=== PATIENT | male | born 1945 | race Caucasian/White ===

== ENCOUNTER 2021-08-24 12:49 | Emergency (ER) | payer OTHER, SELFPAY ==
--- OUTSIDE RECORDS SUMMARY | 2021-08-24 13:02 | XMS REPORT | Continuity of Care Document ---
:1945 Author Organization [facility] t Address [address] [place] [address] Care Team Providers Name Role Phone SHARPLESS Primary Care Physician Unavailable BRODERICK Attending Clinician Unavailable Jonnie FELTON Attending Clinician Unavailable ELDER HAMLIN Attending Clinician Unavailable Jonnie CRUZ Attending Clinician Unavailable Noe SAMUEL Attending Clinician Unavailable JESSA BLAIR Attending Clinician Unavailable Jonnie CARRASCO Attending Clinician Unavailable VANDANA Attending Clinician Unavailable Barb CORMIER Attending Clinician Unavailable MACHO GONZALEZ Attending Clinician Unavailable Karyn Mcgee PA-C Attending Clinician KARYN MCGEE Attending Clinician Unavailable Vandana JARA Attending Clinician FL1 Attending Clinician Unavailable SWAB, COVID SELF Attending Clinician Unavailable ISABEL Attending Clinician Unavailable LAB90 Attending Clinician Unavailable AMBROSE Attending Clinician Unavailable RADIOLOGY Attending Clinician Unavailable DENNY Attending Clinician Unavailable 1, COHERENCE TOMOGRAPHY Attending Clinician Unavailable Miya Brush MD Attending Clinician Omar PHIPPS Attending Clinician Unavailable MIYA BRUSH Attending Clinician Unavailable LAB39 Attending Clinician Unavailable KATHY Attending Clinician Unavailable LAB47 Attending Clinician Unavailable Elder Hamlin MD Attending Clinician LAB02 Attending Clinician Unavailable Noe Samuel MD Attending Clinician Kathy MORAN Attending Clinician ADÁN Attending Clinician Unavailable Jonnie Carrasco MD Attending Clinician ELIECER CARRASCO Attending Clinician Unavailable Eliecer Carrasco MD Attending Clinician Unavailable Newton Morrissey MD Attending Clinician Otilia POWERS Karyn Attending Clinician MARGUERITE Attending Clinician Unavailable Adán [facility] FINISH SPECIALIST Attending Clinician SWAB, COVID SELF Attending Clinician Unavailable [id number] Attending Clinician Unavailable MAC Attending Clinician Unavailable JD MUNOZ Attending Clinician Unavailable COVID-PFIZER BOOSTER, RICHMOND Attending Clinician Unavailabl e COVID-PFIZER BOOSTER Attending Clinician Unavailable GRICELDA Attending Clinician Unavailable Gricelda FINISH SPECIALIST Attending Clinician HU Attending Clinician Unavailable Rusty HERNANDEZ, [facility] Attending Clinician Artemio Olguin MD Attending Clinician Marlyn Vazquez DO Attending Clinician Unavailable Ron Up MD Attending Clinician Christopher Linder MD Attending Clinician FLASH Attending Clinician Unavailable ELIECER CARRASCO Admitting Clinician Unavailable Marlyn VAZQUEZ Admitting Clinician Unavailable Payers Payer Name Policy Type Policy Number Effective Date Expiration Date S shay [facility] - O 2020 7 [id number] 2014 00:00:00 [facility] [id number] 2014 ADV 00:00:00 [id number] ADVANTAGE O 00:00:00 Problems Condition Condition Condition Status Onset Resolution Last Treating Co mments Source Name Details Category Date Date Treatment Clinician Date 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-06 Seybold kidney kidney 00:00: disease disease 00 Lung Lung Disease Active 2020-05 Marilynn granuloma granuloma 2-06 Seyb old 00:00: 00 Cervical Cervical Disease [facility] Metastasis Metastasis Disease Active 2020-[address] [facility] cervical cervical 00:[facility]: Medica l lymph node lymph node 00 Ce nter 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: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 00 Gastric Gastric Disease Active [facility] ulcer ulcer 3[facility] Duodenal Duodenal Disease [facility] Hypokalemi Hypokalemi Disease Active [facility] Severe Severe Disease Active [facility] anemia anemia 3- [facility] Medical 00 [place] Nausea & Nausea & Disease Active Kelse y vomiting vomiting 2-12 Seybol d 00:00: 00 Dehydratio Dehydratio Disease Active K elsey n n 2-12 Seybold 00:00: 00 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 00:00: of lymph of lymph 00 nodes nodes Cancer of Cancer of Disease Active [facility] base of base of 1-07 College tongue tongue 00:00: of (HCCode) (HCCode) 00 Medici n e Other Other Disease Active [facility] dysphagia dysphagia 1-07 Isai ege 00:00: of 00 Medicin e History of History of Disease Active 2019-05 K elsey squamous squamous 2-18 Seybol d cell cell 00:00: carcinoma- carcinoma- 00 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 Active 2019-05 Marilynn chronic chronic 0-19 Seybold kidney kidney 00:00: disease disease 00 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 2-10 Se ybold emia emia 00:00: 00 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 00:00: 00 Hypertensi Hypertensi Disease Active 2018-05 K elsey ve heart ve heart 0-17 Seybol d and kidney and kidney 00:00: disease disease 00 with heart with heart failure failure and and chronic chronic kidney kidney disease disease Benign Benign Disease Active Marilynn non-nodula non-nodula 02-03 Se ybold r r 00:00: prostatic prostatic 00 hyperplasi hyperplasi a without a without lower lower urinary urinary tract tract symptoms symptoms 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 2-10 [place]bol [place] 00:00: coronary coronary 00 artery of artery of [place] heart heart without without angina angina pectoris pectoris 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 PTSD PTSD Disease Active 2011-05 Marilynn (post-trau (post-trau 06-16 Se ybold matic matic 00:00: stress stress 00 disorder) disorder) [place] 1968 - 1969 1969 Allergies, Adverse Reactions, Alerts Allergy Allergy Status Severity Reaction(s) Onset Inactive Treating Comm ents Source Name Type Date Date Clinician TRAMADOL Allergy Active 2020-[address] [facility] Tramadol Propensi Active 2020-[address] [facility] ty to 0-08 [facility] - adverse 00:00: Medical reaction 00 Center s OXYCODON Allergy Active Other [facility] Oxycodon Drug Active Other pt would Marilynn ballesteros Intolera - like Seybold nce 00:00: oxycontin 00 /tramadol added to his "allergy/ intoleran ce" list - he states he was addicted to opioids and wants it noted in his profile. He does not want to take opioid medicatio ns due to addiction potential Tramadol Drug Active Other pt would Marilynn Intolera 4- like Seybold nce 00:00: oxycontin 00 /tramadol added to his "allergy/ intoleran ce" list - he states he was addicted to opioids and wants it noted in his profile. He does not want to take opioid medicatio ns due to addiction potential Morpholi Drug Active [facility] Intolera 4-21 [facility] - Analogue nce 00:00: Medical s 00 Center MORPHOLI Allergy Active [facility] 4-[facility] - ANALOGUE 00:[facility]: Medical S 00 Center Social History Social Habit Start Date Stop Date Quantity Comments Source History SDOH Marilynn servin Alcohol Frequency History SDOH Marilynn servin Alcohol Std Drinks History SDOH Marilynn servin Alcohol Binge Alcohol intake 2021-08-14 2021-08-14 Current drinker of Ke lsey Seybold 00:00:00 00:00:00 alcohol (finding) Exposure to 2021-08-03 2021-08-13 Not sure Marilynn odom SARS-CoV-2 (event) 00:00:00 10:35:00 Alcohol Comment 2014-05-25 2014-05-25 moderately Marilynn Coyne ybtiana 00:00:00 00:00:00 Tobacco use and 2012-08-30 2012-08-30 Smokeless tobacco Elieser lsey Seybold exposure 00:00:00 00:00:00 non-user Sex [birth year] Marilynn Coyne ybtiana 00:00:00 00:00:00 Smoking Status Start Date Stop Date Source Unknown if ever smoked [facility] Never smoked tobacco Marilynn montiel Medications Ordered Filled Start Stop Current Ordering Indication Dosage Frequency Signature Comments Components Source Medication Medication Date Date Medication? Clinician (SIG) Name Name Multiple Yes Take by Marilynn Vitamin 3-30 mouth Seybold (MULTI 12:57: daily VITAMIN 26 MENS OR) Nitroglycer Yes 1 tablet Elieser yuannevin in 0.4 MG 3-30 under the Seybo ld sublingual 12:57: tongue at SL Tab 26 onset of attack. Repeat as needed up to 3 times. Bupropion Yes 300mg Take 300 Renate sey HCL XL 300 3-30 mg by Seybold MG OR TB24 12:57: mouth 26 daily Naproxen Yes 220mg Take 220 Sheree ey Sodium 220 3-30 mg by Seybold MG oral 12:57: mouth 2 Tablet 26 times daily (with meals) Acetaminoph 2021-0 Yes 500mg Q.25D Take 500 Marilynn en 3-30 mg by Seybold (TYLENOL) 12:57: mouth 500 MG oral 26 every 6 Tablet hours as needed for pain Multiple 0 Yes Take by Marilynn Vitamin 3-29 mouth Seybold (MULTI 10:59: daily VITAMIN 53 MENS OR) Nitroglycer 0 Yes 1 tablet Ke lsey in 0.4 MG 3-29 under the Seybo ld sublingual 10:59: tongue at SL Tab 53 onset of attack. Repeat as needed up to 3 times. Bupropion 0 Yes 300mg Take 300 Renate sey HCL XL 300 3-29 mg by Seybold MG OR TB24 10:59: mouth 53 daily Naproxen 0 Yes 220mg Take 220 Sheree ey Sodium 220 3-29 mg by Seybold MG oral 10:59: mouth 2 Tablet 53 times daily (with meals) Acetaminoph 0 Yes 500mg Q.25D Take 500 Marilynn en 3-29 mg by Seybold (TYLENOL) 10:59: mouth 500 MG oral 53 every 6 Tablet hours as needed for pain Pregabalin 2021-0 Yes [id number] Lyrica K elsey (Lyrica) 25 3-29 25mg 1 po Sey bold MG oral 00:00: qd x 3 Capsule 00 days, 1 po q 12 x 3 days, 1 po q 8 for nerve pain #90 To discontinu e, taper off Pregabalin 0 Yes [id number] Lyrica K elsey (Lyrica) 25 3-29 25mg 1 po Sey bold MG oral 00:00: qd x 3 Capsule 00 days, 1 po q 12 x 3 days, 1 po q 8 for nerve pain #90 To discontinu e, taper off Ciprofloxac 0 Yes 500mg Take 1 Renate sey in HCl 3-18 tablet Seybold (Cipro) 500 00:00: (500 mg MG oral 00 total) by Tablet mouth every 12 hours Ciprofloxac 2021-0 Yes 500mg Take 1 Renate sey in HCl 3-18 tablet Seybold (Cipro) 500 00:00: (500 mg MG oral 00 total) by Tablet mouth every 12 hours Methylpredn 2021- No [id number] 40mg Marilynn isolone 2-07 06-24 07 Seybold Acetate 16:45: 17:31 (Depo-Medro 00 :00 l) 40 mg/ml - Physician Administere d ([id number]) Methylpredn 2021- No [id number] 40mg 40 mg, Marilynn isolone 2-07 06-24 07 Physician Seybol d Acetate 16:45: 17:31 Administer (Depo-Medro 00 :00 ed, ONCE, l) 40 mg/ml 1 dose, On - Physician 06/24/21 Administere at 1045 d ([id number]) Mirtazapine Yes 15mg Take 15 mg Marilynn 15 MG oral 2-07 by mouth Seybo ld Tablet 09:35: nightly 13 Patient takes half a tab nightly Acetaminoph Yes 500mg Q6H Take 500 K elsey en 2-07 mg by Seybold (TYLENOL) 09:34: mouth 500 MG oral 58 every 6 Tablet hours as needed for pain Multiple Yes Take by Marilynn Vitamin 2-07 mouth Seybold (MULTI 09:34: daily VITAMIN 57 MENS OR) Nitroglycer Yes 1 tablet Ke lsey in 0.4 MG 2-07 under the Seybo ld sublingual 09:34: tongue at SL Tab 57 onset of attack. Repeat as needed up to 3 times. Bupropion 0 Yes 300mg Take 300 Renate sey HCL XL 300 2-07 mg by Seybold MG OR TB24 09:34: mouth 57 daily Naproxen 0 Yes 220mg Take 220 Sheree ey Sodium 2-07 mg by Seybold (Aleve) 220 09:34: mouth 2 MG oral Tab 57 times daily (with meals) Gabapentin 0 Yes Neurontin Ke lsey 100 MG oral 2-07 100mg 1 po Se ybold Capsule 00:00: QD x 3 00 days, 1 po q 12 hrs. X 3 days, 1 po q 8 for nerve pain #90 To discontinu e, taper off Baclofen 10 Yes 10mg Q.5D Take 1 Sheree ey MG oral 2-07 tablet (10 Seybol d Tablet 00:00: mg total) 00 by mouth 2 times daily as needed for muscle spasms or pain Baclofen 10 Yes 10mg Q.5D Take 1 Sheree ey MG oral 2-07 tablet (10 Seybol d Tablet 00:00: mg total) 00 by mouth 2 times daily as needed for muscle spasms or pain Baclofen 10 0 Yes 10mg Q.5D Take 1 Sheree ey MG oral 2-07 tablet (10 Seybol d Tablet 00:00: mg total) 00 by mouth 2 times daily as needed for muscle spasms or pain Gabapentin 2021- No Neurontin K elsey 100 MG oral 2- 03-29 100mg 1 po S eybold Capsule 00:00: 00:00 QD x 3 00 :00 days, 1 po q 12 hrs. X 3 days, 1 po q 8 for nerve pain #90 To discontinu e, taper off Multiple Yes Take by Marilynn Vitamin 1-20 mouth Seybold (MULTI 10:05: daily VITAMIN 21 MENS OR) Nitroglycer Yes 1 tablet Ke lsey in 0.4 MG 1-20 under the Seybo ld sublingual 10:05: tongue at SL Tab 21 onset of attack. Repeat as needed up to 3 times. Bupropion Yes 300mg Take 300 Renate sey HCL XL 300 1-20 mg by Seybold MG OR TB24 10:05: mouth 21 daily Naproxen 0 Yes 220mg Take 220 Sheree ey Sodium 1-20 mg by Seybold (Aleve) 220 10:05: mouth 2 MG oral Tab 21 times daily (with meals) Mirtazapine Yes 15mg Take 15 mg Marilynn 15 MG oral 1-20 by mouth Seybo ld Tablet 10:05: nightly 21 Patient takes half a tab nightly Acetaminoph 2021- Yes 500mg Q6H Take 500 K elsey en 1-20 mg by Seybold (TYLENOL) 10:05: mouth 500 MG oral 21 every 6 Tablet hours as needed for pain Multiple Yes Take by Marilynn Vitamin 1-20 mouth Seybold (MULTI 10:05: daily VITAMIN 21 MENS OR) Nitroglycer Yes 1 tablet Ke lsey in 0.4 MG 1-20 under the Seybo ld sublingual 10:05: tongue at SL Tab 21 onset of attack. Repeat as needed up to 3 times. Bupropion 2021-0 Yes 300mg Take 300 Renate sey HCL XL 300 1-20 mg by Seybold MG OR TB24 10:05: mouth 21 daily Naproxen 2021-0 Yes 220mg Take 220 Sheree ey Sodium 1-20 mg by Seybold (Aleve) 220 10:05: mouth 2 MG oral Tab 21 times daily (with meals) Mirtazapine 0 Yes 15mg Take 15 mg Marilynn 15 MG oral 1-20 by mouth Seybo ld Tablet 10:05: nightly 21 Patient takes half a tab nightly Acetaminoph 0 Yes 500mg Q6H Take 500 K elsey en 1-20 mg by Seybold (TYLENOL) 10:05: mouth 500 MG oral 21 every 6 Tablet hours as needed for pain Multiple Yes Take by Marilynn Vitamin 1-17 mouth Seybold (MULTI 09:55: daily VITAMIN 00 MENS OR) Nitroglycer Yes 1 tablet Ke lsey in 0.4 MG 1-17 under the Seybo ld sublingual 09:55: tongue at SL Tab 00 onset of attack. Repeat as needed up to 3 times. Bupropion 0 Yes 300mg Take 300 Renate sey HCL XL 300 1-17 mg by Seybold MG OR TB24 09:55: mouth 00 daily Naproxen 2021-0 Yes 220mg Take 220 Sheree ey Sodium 1-17 mg by Seybold (Aleve) 220 09:55: mouth 2 MG oral Tab 00 times daily (with meals) Acetaminoph 2021-0 Yes 500mg Q6H Take 500 K elsey en 1-17 mg by Seybold (TYLENOL) 09:55: mouth 500 MG oral 00 every 6 Tablet hours as needed for pain Mirtazapine 2020-05 Yes 15mg Take 15 mg Marilynn 15 MG oral 2-16 by mouth Seybo ld Tablet 14:29: nightly 20 Patient takes half a tab nightly Multiple 2020-05 Yes Take by Marilynn Vitamin 2-16 mouth Seybold (MULTI 09:47: daily VITAMIN 31 MENS OR) Nitroglycer 2020-05 Yes 1 tablet Ke lsey in 0.4 MG 2-16 under the Seybo ld sublingual 09:47: tongue at SL Tab 31 onset of attack. Repeat as needed up to 3 times. Bupropion 2020-05 Yes 300mg Take 300 Renate sey HCL XL 300 2-16 mg by Seybold MG OR TB24 09:47: mouth 31 daily Naproxen 2020-05 Yes 220mg Take 220 Sheree ey Sodium 2-16 mg by Seybold (Aleve) 220 09:47: mouth 2 MG oral Tab 31 times daily (with meals) Mirtazapine 2020-05 Yes 15mg Take 15 mg Marilynn 15 MG oral 2-16 by mouth Seybo ld Tablet 09:47: nightly 31 Patient takes half a tab nightly Acetaminoph 2020-05 Yes 500mg Q6H Take 500 K elsey en 2-16 mg by Seybold (TYLENOL) 09:47: mouth 500 MG oral 31 every 6 Tablet hours as needed for pain DICLOFENAC 2020-05 Yes 1[drp] Place 1 Ke lsey SODIUM, 2-16 drop into Seybold OPHTH, 0.1 00:00: the right % 00 eye 4 ophthalmic times Solution daily *BDP* prednisoLON 2020-05 Yes 1[drp] Place 1 K elsey E Acetate 1 2-16 drop into Sey bold % 00:00: the right ophthalmic 00 eye 4 Suspension times daily *BDP* DICLOFENAC 2020-05 Yes 1[drp] Place 1 Ke lsey SODIUM, 2-16 drop into Seybold OPHTH, 0.1 00:00: the right % 00 eye 4 ophthalmic times Solution daily *BDP* prednisoLON 2020-05 Yes 1[drp] Place 1 K elsey E Acetate 1 2-16 drop into Sey bold % 00:00: the right ophthalmic 00 eye 4 Suspension times daily *BDP* DICLOFENAC 2020-05 Yes 1[drp] Place 1 Ke lsey SODIUM, 2-16 drop into Seybold OPHTH, 0.1 00:00: the right % 00 eye 4 ophthalmic times Solution daily *BDP* prednisoLON 2020-05 Yes 1[drp] Place 1 K elsey E Acetate 1 2-16 drop into Sey bold % 00:00: the right ophthalmic 00 eye 4 Suspension times daily *BDP* DICLOFENAC 2020-05 Yes 1[drp] Place 1 Ke lsey SODIUM, 2-16 drop into Seybold OPHTH, 0.1 00:00: the right % 00 eye 4 ophthalmic times Solution daily *BDP* prednisoLON 2020-05 Yes 1[drp] Place 1 K elsey E Acetate 1 2-16 drop into Sey bold % 00:00: the right ophthalmic 00 eye 4 Suspension times daily *BDP* DICLOFENAC 2020-05 Yes 1[drp] Place 1 Ke lsey SODIUM, 2-16 drop into Seybold OPHTH, 0.1 00:00: the right % 00 eye 4 ophthalmic times Solution daily *BDP* prednisoLON 2020-05 Yes 1[drp] Place 1 K elsey E Acetate 1 2-16 drop into Sey bold % 00:00: the right ophthalmic 00 eye 4 Suspension times daily *BDP* Brimonidine 2020-05- No [id number] 1[drp] Place 1 Marilynn Tartrate 2-16 12-24 drop into Seybo ld 0.2 % 00:00: 05:59 the right ophthalmic 00 :00 eye 2 Solution times daily for 7 days Moxifloxaci 2020-05 202- No 1[drp] Place 1 Marilynn n HCl 2-15 12-23 drop into Seybold (Vigamox) 00:00: 05:59 the right 0.5 % 00 :00 eye 4 ophthalmic times Solution daily for 7 days *BDP* Multiple 2020-05 Yes Take by Marilynn Vitamin 2-09 mouth Seybold (MULTI 14:26: daily VITAMIN 50 MENS OR) Nitroglycer 2020-05 Yes 1 tablet Elieser yuaney in 0.4 MG 2-09 under the Seybo ld sublingual 14:26: tongue at SL Tab 50 onset of attack. Repeat as needed up to 3 times. Bupropion 2020-05 Yes 300mg Take 300 Renate sey HCL XL 300 2-09 mg by Seybold MG OR TB24 14:26: mouth 50 daily Naproxen 2020-05 Yes 220mg Take 220 Sheree ey Sodium 2-09 mg by Seybold (Aleve) 220 14:26: mouth 2 MG oral Tab 50 times daily (with meals) Mirtazapine 2020-05 Yes 15mg Take 15 mg Marilynn 15 MG oral 2-09 by mouth Seybo ld Tablet 14:26: nightly 50 Patient takes half a tab nightly Acetaminoph 2020-05 Yes 500mg Q6H Take 500 K elsey en 2-09 mg by Seybold (TYLENOL) 14:26: mouth 500 MG oral 50 every 6 Tablet hours as needed for pain Tamsulosin 2020-05- No .4mg Take 0.4 Ke lsey HCl 0.4 MG 2-06 12-06 mg by Seybold oral Cap 08:41: 00:00 mouth 31 :00 daily Multiple 2020-05 Yes Take by Marilynn Vitamin 2-06 mouth Seybold (MULTI 08:38: daily VITAMIN 09 MENS OR) Nitroglycer 2020-05 Yes 1 tablet Ke lsey in 0.4 MG 2-06 under the Seybo ld sublingual 08:38: tongue at SL Tab 09 onset of attack. Repeat as needed up to 3 times. Bupropion 2020-05 Yes 300mg Take 300 Renate sey HCL XL 300 2-06 mg by Seybold MG OR TB24 08:38: mouth 09 daily Naproxen 2020-05 Yes 220mg Take 220 Sheree ey Sodium 2-06 mg by Seybold (Aleve) 220 08:38: mouth 2 MG oral Tab 09 times daily (with meals) Mirtazapine 2020-05 Yes 15mg Take 15 mg Marilynn 15 MG oral 2-06 by mouth Seybo ld Tablet 08:38: nightly 09 Patient takes half a tab nightly Acetaminoph 2020-05 Yes 500mg Q6H Take 500 K elsey en 2-06 mg by Seybold (TYLENOL) 08:38: mouth 500 MG oral 09 every 6 Tablet hours as needed for pain Multiple 2020-05 Yes Take by Marilynn Vitamin 0-22 mouth Seybold (MULTI 11:22: daily VITAMIN 03 MENS OR) Nitroglycer 2020-05 Yes 1 tablet Ke lsey in 0.4 MG 0-22 under the Seybo ld sublingual 11:22: tongue at SL Tab 03 onset of attack. Repeat as needed up to 3 times. Bupropion 2020-05 Yes 300mg Take 300 Renate sey HCL XL 300 0-22 mg by Seybold MG OR TB24 11:22: mouth 03 daily Naproxen 2020-05 Yes 220mg Take 220 Sheree ey Sodium 0-22 mg by Seybold (Aleve) 220 11:22: mouth 2 MG oral Tab 03 times daily (with meals) Tamsulosin 2020-05 Yes .4mg Take 0.4 Renate sey HCl 0.4 MG 0-22 mg by Seybold oral Cap 11:22: mouth 03 daily Mirtazapine 2020-05 Yes 15mg Take 15 mg Marilynn 15 MG oral 0-22 by mouth Seybo ld Tablet 11:22: nightly 03 Patient takes half a tab nightly Multiple 2020-05 Yes Take by Marilynn Vitamin 0-22 mouth Seybold (MULTI 11:22: daily VITAMIN 03 MENS OR) Nitroglycer 2020-05 Yes 1 tablet Ke lsey in 0.4 MG 0-22 under the Seybo ld sublingual 11:22: tongue at SL Tab 03 onset of attack. Repeat as needed up to 3 times. Bupropion 2020-05 Yes 300mg Take 300 Renate sey HCL XL 300 0-22 mg by Seybold MG OR TB24 11:22: mouth 03 daily Naproxen 2020-05 Yes 220mg Take 220 Sheree ey Sodium 0-22 mg by Seybold (Aleve) 220 11:22: mouth 2 MG oral Tab 03 times daily (with meals) Tamsulosin 2020-05 Yes .4mg Take 0.4 Renate sey HCl 0.4 MG 0-22 mg by Seybold oral Cap 11:22: mouth 03 daily Mirtazapine 2020-05 Yes 15mg Take 15 mg Marilynn 15 MG oral 0-22 by mouth Seybo ld Tablet 11:22: nightly 03 Patient takes half a tab nightly Multiple 2020-05 Yes Take by Marilynn Vitamin 0-22 mouth Seybold (MULTI 11:22: daily VITAMIN 03 MENS OR) Nitroglycer 2020-05 Yes 1 tablet Ke lsey in 0.4 MG 0-22 under the Seybo ld sublingual 11:22: tongue at SL Tab 03 onset of attack. Repeat as needed up to 3 times. Bupropion 2020-05 Yes 300mg Take 300 Renate sey HCL XL 300 0-22 mg by Seybold MG OR TB24 11:22: mouth 03 daily Naproxen 2020-05 Yes 220mg Take 220 Sheree ey Sodium 0-22 mg by Seybold (Aleve) 220 11:22: mouth 2 MG oral Tab 03 times daily (with meals) Tamsulosin 2020-05 Yes .4mg Take 0.4 Renate sey HCl 0.4 MG 0-22 mg by Seybold oral Cap 11:22: mouth 03 daily Mirtazapine 2020-05 Yes 15mg Take 15 mg Marilynn 15 MG oral 0-22 by mouth Seybo ld Tablet 11:22: nightly 03 Patient takes half a tab nightly Tamsulosin 2020-05 Yes .4mg Take 1 Kelse y HCl 0.4 MG 0-22 capsule Seybol d oral 00:00: (0.4 mg Capsule 00 total) by mouth 2 times daily Ciprofloxac 2020-05 Yes 500mg Take 1 Renate sey in HCl 0-22 tablet Seybold (Cipro) 500 00:00: (500 mg MG oral 00 total) by Tablet mouth 2 times daily Tamsulosin 2020-05 Yes .4mg Take 1 Kelse y HCl 0.4 MG 0-22 capsule Seybol d oral 00:00: (0.4 mg Capsule 00 total) by mouth 2 times daily Ciprofloxac 2020-05 Yes 500mg Take 1 Renate sey in HCl 0-22 tablet Seybold (Cipro) 500 00:00: (500 mg MG oral 00 total) by Tablet mouth 2 times daily Tamsulosin 2020-05 Yes .4mg Take 1 Kelse y HCl 0.4 MG 0-22 capsule Seybol d oral 00:00: (0.4 mg Capsule 00 total) by mouth 2 times daily Ciprofloxac 2020-05 Yes 500mg Take 1 Renate sey in HCl 0-22 tablet Seybold (Cipro) 500 00:00: (500 mg MG oral 00 total) by Tablet mouth 2 times daily Tamsulosin 2020-05 Yes .4mg Take 1 Kelse y HCl 0.4 MG 0-22 capsule Seybol d oral 00:00: (0.4 mg Capsule 00 total) by mouth 2 times daily Tamsulosin 2020-05 Yes .4mg Take 1 Kelse y HCl 0.4 MG 0-22 capsule Seybol d oral 00:00: (0.4 mg Capsule 00 total) by mouth 2 times daily Tamsulosin 2020-05 Yes .4mg Take 1 Kelse y HCl 0.4 MG 0-22 capsule Seybol d oral 00:00: (0.4 mg Capsule 00 total) by mouth 2 times daily Tamsulosin 2020-05 Yes .4mg Take 1 Kelse [facility] HCl 0.4 MG 0-22 capsule Seybol d oral 00:00: (0.4 mg Capsule 00 total) by mouth 2 times daily Tamsulosin 2020-05 Yes .4mg Take 1 Kelse [facility] HCl 0.4 MG 0-22 capsule Seybol d oral 00:00: (0.4 mg Capsule 00 total) by mouth 2 times daily Tamsulosin 2020-05 Yes .4mg Take 1 Kelse y HCl 0.4 MG 0-22 capsule Seybol d oral 00:00: (0.4 mg Capsule 00 total) by mouth 2 times daily Tamsulosin 2020-05 Yes .4mg Take 1 Kelse [facility] HCl 0.4 MG 0-22 capsule Seybol d oral 00:00: (0.4 mg Capsule 00 total) by mouth 2 times daily Tamsulosin 2020-05 Yes .4mg Take 1 Kelse [facility] HCl 0.4 MG 0-22 capsule Seybol d oral 00:00: (0.4 mg Capsule 00 total) by mouth 2 times daily Tamsulosin 2020-05 Yes .4mg Take 1 Kelse [facility] HCl 0.4 MG 0-22 capsule Seybol d oral 00:00: (0.4 mg Capsule 00 total) by mouth 2 times daily Ciprofloxac 2020-05- No 500mg Take 1 Ke lsey in HCl 0-22 12-06 tablet [facility] (Cipro) 500 00:00: 00:00 (500 mg MG oral 00 :00 total) by Tablet mouth 2 times daily Ciprofloxac 2020-05 Yes 500mg Take 1 Renate sey in HCl 0-18 tablet [facility] (Cipro) 500 00:00: (500 mg MG oral 00 total) by Tablet mouth 2 times daily Ciprofloxac 2020-05 Yes 500mg Take 1 Renate sey in HCl 0-18 tablet [facility] (Cipro) 500 00:00: (500 mg MG oral 00 total) by Tablet mouth 2 times daily Ciprofloxac 2020-05 Yes 500mg Take 1 Renate sey in HCl 0-18 tablet [facility] (Cipro) 500 00:00: (500 mg MG oral 00 total) by Tablet mouth 2 times daily Ciprofloxac 2020-05- No 500mg Take 1 Ke lsey in HCl 0-18 12-06 tablet [facility] (Cipro) 500 00:00: 00:00 (500 mg MG oral 00 :00 total) by Tablet mouth 2 times daily Nitroglycer 2020-05 Yes 1 tablet Ke lsey in 0.4 MG 0-15 under the Seybo ld sublingual 10:51: tongue at SL Tab 33 onset of attack. Repeat as needed up to 3 times. Nitroglycer 2020-05 Yes 1 tablet Ke lsey in 0.4 MG 0-15 under the Seybo ld sublingual 10:51: tongue at SL Tab 33 onset of attack. Repeat as needed up to 3 times. Multiple 2020-05 Yes Take by Marilynn Vitamin 0-15 mouth [facility] (MULTI 10:51: daily VITAMIN 25 MENS OR) Bupropion 2020-05 Yes 300mg Take 300 Renate sey HCL XL 300 0-15 mg by [facility] MG OR TB24 10:51: mouth 25 daily Naproxen 2020-05 Yes 220mg Take 220 Sheree ey Sodium 0-15 mg by [facility] (Aleve) 220 10:51: mouth 2 MG oral Tab 25 times daily (with meals) Tamsulosin 2020-05 Yes .4mg Take 0.4 Renate sey HCl 0.4 MG 0-15 mg by [facility] oral Cap 10:51: mouth 25 daily Mirtazapine 2020-05 Yes 15mg Take 15 mg Marilynn 15 MG oral 0-15 by mouth Seybo ld Tablet 10:51: nightly 25 Patient takes half a tab nightly Multiple 2020-05 Yes Take by Marilynn Vitamin 0-15 mouth [facility] (MULTI 10:51: daily VITAMIN 25 MENS OR) Bupropion 2020-05 Yes 300mg Take 300 Renate sey HCL XL 300 0-15 mg by [facility] MG OR TB24 10:51: mouth 25 daily Naproxen 2020-05 Yes 220mg Take 220 Sheree ey Sodium 0-15 mg by [facility] (Aleve) 220 10:51: mouth 2 MG oral Tab 25 times daily (with meals) Tamsulosin 2020-05 Yes .4mg Take 0.4 Renate sey HCl 0.4 MG 0-15 mg by [facility] oral Cap 10:51: mouth 25 daily Mirtazapine 2020-05 Yes 15mg Take 15 mg Marilynn 15 MG oral 0-15 by mouth Seybo ld Tablet 10:51: nightly 25 Patient takes half a tab nightly mirtazapine 2020-05 Yes 15mg QD Take [address] [facility] (REMERON) 0-13 by mouth [facility] - 15 MG 13:53: nightly. Medical tablet 01 Center naproxen 2020-05 Yes 220mg Take [address] [facility] (ALEVE,ANAP 0-13 mg by [facility] - ENEDELIA,MIDOL) 13:53: mouth 2 Medi ashlyn 220 MG 01 (two) Center tablet times daily as needed. multivitami 2020-05 Yes 1{tbl} QD Take [address] [facility] [address] [facility] per 0-13 tablet by [facility] - tablet 13:53: mouth Medical 01 daily. Center HYDROcodone 2020-05 Yes 1{tbl} Take [address] [facility] [address] [facility] -acetaminop 0-12 tablet by [facility] - hen (NORCO 13:53: mouth Medica l 7.5-325) 19 every 4 Center 7.5-325 mg (four) per tablet hours as needed for Pain. hydrOXYzine 2020-05 Yes 50mg Take [address] [facility] (ATARAX) 50 0-12 by mouth Luke s - MG tablet 13:53: as needed Med ical 19 for Center Anxiety . tamsulosin 2020-05 Yes .4mg QD Take 0.[address] [facility] (FLOMAX) 0-12 mg by [facility] - 0.4 mg Cp24 13:53: mouth Medic al 24 hr 18 daily. Center capsule aspirin 81 2020-05 Yes 81mg QD Take [address] MG chewable 0-12 by mouth Luke s - tablet 13:53: daily. Medical 18 Center buPROPion 2020-05 Yes 300mg QD Take [address] [facility] (WELLBUTRIN 0-12 mg by [facility] - XL) 150 MG 13:53: mouth Medica l 24 hr 18 daily . Center tablet nitroglycer 2020-[address] 0[address] in 0-12 mg under [facility] - (NITROSTAT) 13:53: the tongue Medical 0.4 MG SL 18 every 5 Center tablet (five) minutes as needed for Chest pain Put 1 pill under tongue every 5min as needed for chest pain.No more than 3 doses in 15min.Call 911 if pain is unrelieved 5min after 1st dose . atorvastati 2020-05 Yes 20mg QD Take [address] [facility] (LIPITOR) 0-12 by mouth Luke s - 20 MG 13:53: daily. Medical tablet 18 Center clindamycin 2020-05 Yes Apply [facility] (CLINDAGEL[facility] 0-12 topically [facility] - 1 % gel 13:53: 2 (two) Medical 18 times Center daily as needed. furosemide 2020-05 Yes 20mg Take [address] [facility] (LASIX) 20 0-12 by mouth [facility] - MG tablet 13:53: as needed Med ical 18 . Center Acetaminoph 2020-05 Yes 1{tbl} Q6H Take 1-2 Marilynn en-Codeine 0-11 tablets by Alvaro thao (TYLENOL/CO 00:00: mouth DEINE #3) 00 every 6 300-30 MG hours as oral Tablet needed for pain Acetaminoph 2020-05 Yes 1{tbl} Q6H Take 1-2 Marilynn en-Codeine 0-11 tablets by Alvaro thao (TYLENOL/CO 00:00: mouth DEINE #3) 00 every 6 300-30 MG hours as oral Tablet needed for pain Acetaminoph 2020-05 Yes 1{tbl} Q6H Take 1-2 Marilynn en-Codeine 0-11 tablets by Alvaro thao (TYLENOL/CO 00:00: mouth DEINE #3) 00 every 6 300-30 MG hours as oral Tablet needed for pain Acetaminoph 2020-05 Yes 1{tbl} Q6H Take 1-2 Marilynn en-Codeine 0-11 tablets by Alvaro thao (TYLENOL/CO 00:00: mouth DEINE #3) 00 every 6 300-30 MG hours as oral Tablet needed for pain Acetaminoph 2020-05 Yes 1{tbl} Q6H Take 1-2 Marilynn en-Codeine 0-11 tablets by Alvaro thao (TYLENOL/CO 00:00: mouth DEINE #3) 00 every 6 300-30 MG hours as oral Tablet needed for pain Acetaminoph 2020-05 No 1{tbl} Q6H Take 1-2 Marilynn en-Codeine 0-11 12-06 tablets by Se guidry (TYLENOL/CO 00:00: 00:00 mouth DEINE #3) 00 :00 every 6 300-30 MG hours as oral Tablet needed for pain sucralfate 2020-05- No 1g Q.25D Take [address] [facility] (CARAFATE) 0-08 10-08 by mouth 4 Gwendolyn kes - 100 mg/mL 11:48: 00:00 (four) Medic al suspension 32 :00 times Center daily. ondansetron 2020-05 No 4mg Take [address] [facility] (ZOFRAN) 4 0-08 10-08 by mouth 3 Gwendolyn kes - MG tablet 11:48: 00:00 (three) Medi ashlyn 29 :00 times Center daily as needed for Nausea. folic acid 2020-05 No 1mg QD Take [address] [facility] (FOLVITE) 1 0-08 10-08 by mouth [facility] - MG tablet 11:47: 00:00 daily. Medic al 15 :00 Center doxycycline 2020-05 No 100mg Q.5D Take [address] [facility] (DORYX) 100 0-08 10-08 mg by [facility] - MG EC 11:47: 00:00 mouth 2 Medical tablet 06 :00 (two) Center times daily. carvediloL 2020-05 No 6.25mg Take 6.[address] [facility] (COREG) 0-08 10-08 mg by [facility] - 12.5 MG 11:46: 00:00 mouth 2 Medica l tablet 53 :00 (two) Center times daily with breakfast and dinner. Multiple 2020-05 Yes Take by Marilynn Vitamin 0-05 mouth [facility] (MULTI 10:13: daily VITAMIN 00 MENS OR) Nitroglycer 2020-05 Yes 1 tablet Ke lsey in 0.4 MG 0-05 under the Seybo ld sublingual 10:13: tongue at SL Tab 00 onset of attack. Repeat as needed up to 3 times. Bupropion 2020-05 Yes 300mg Take 300 Renate sey HCL XL 300 0-05 mg by [facility] MG OR TB24 10:13: mouth 00 daily Naproxen 2020-05 Yes 220mg Take 220 Sheree ey Sodium 0-05 mg by [facility] (Aleve) 220 10:13: mouth 2 MG oral Tab 00 times daily (with meals) Tamsulosin 2020-05 Yes .4mg Take 0.4 Renate sey HCl 0.4 MG 0-05 mg by [facility] oral Cap 10:13: mouth 00 daily Mirtazapine 2020-05 Yes 15mg Take 15 mg Marilynn 15 MG oral 0-05 by mouth Seybo ld Tablet 10:13: nightly 00 Patient takes half a tab nightly Multiple 2020-05 Yes Take by Marilynn Vitamin 0-05 mouth [facility] (MULTI 10:13: daily VITAMIN 00 MENS OR) Nitroglycer 2020-05 Yes 1 tablet Ke lsey in 0.4 MG 0-05 under the Seybo ld sublingual 10:13: tongue at SL Tab 00 onset of attack. Repeat as needed up to 3 times. Bupropion 2020-05 Yes 300mg Take 300 Renate sey HCL XL 300 0-05 mg by [facility] MG OR TB24 10:13: mouth 00 daily Naproxen 2020-05 Yes 220mg Take 220 Sheree ey Sodium 0-05 mg by [facility] (Aleve) 220 10:13: mouth 2 MG oral Tab 00 times daily (with meals) Tamsulosin 2020-05 Yes .4mg Take 0.4 Renate sey HCl 0.4 MG 0-05 mg by [facility] oral Cap 10:13: mouth 00 daily Mirtazapine 2020-05 Yes 15mg Take 15 mg Marilynn 15 MG oral 0-05 by mouth Seybo ld Tablet 10:13: nightly 00 Patient takes half a tab nightly hydrOXYzine 2020-05- No 50mg Q.[id number] Take 50 mg Marilynn HCl 50 MG 0-05 10-05 [id number] by mouth 3 [facility] oral Tab 10:11: 00:00 3D times 46 :00 daily as needed for anxiety (Pt states he takes it to help him sleep as well) Naproxen Yes 220mg Take 220 Sheree ey Sodium 9-29 mg by [facility] (Aleve) 220 14:07: mouth 2 MG oral Tab 23 times daily (with meals) hydrOXYzine Yes 50mg Q.[id number] Take 50 mg Marilynn HCl 50 MG 9-29 [id number] by mouth 3 [facility] oral Tab 14:07: 3D times 23 daily as needed for anxiety (Pt states he takes it to help him sleep as well) Tamsulosin Yes .4mg Take 0.4 Renate sey HCl 0.4 MG 9-29 mg by [facility] oral Cap 14:07: mouth 23 daily Mirtazapine Yes 15mg Take 15 mg Marilynn 15 MG oral 9-29 by mouth Seybo ld Tablet 14:07: nightly 23 Patient takes half a tab nightly Multiple Yes Take by Marilynn Vitamin 9-29 mouth [facility] (MULTI 14:07: daily VITAMIN 23 MENS OR) Nitroglycer Yes 1 tablet Ke lsey in 0.4 MG 9-29 under the Seybo [facility] sublingual 14:07: tongue at SL Tab 23 onset of attack. Repeat as needed up to 3 times. Bupropion Yes 300mg Take 300 Renate sey HCL XL 300 9-29 mg by [facility] MG OR TB24 14:07: mouth 23 daily Furosemide Yes [id number] 20mg Q24H Take 1 Marilynn 20 MG oral 5-06 tablet (20 Sey bold Tablet 00:00: mg total) 00 by mouth daily as needed For signs of volume overload Furosemide Yes [id number] 20mg Q24H Take 1 Marilynn 20 MG oral 5-06 tablet (20 Sey bold Tablet 00:00: mg total) 00 by mouth daily as needed For signs of volume overload Furosemide Yes [id number] 20mg Q24H Take 1 Marilynn 20 MG oral 5-06 tablet (20 Sey bold Tablet 00:00: mg total) 00 by mouth daily as needed For signs of volume overload Furosemide Yes [id number] 20mg Q24H Take 1 Marilynn 20 MG oral 5-06 tablet (20 Sey bold Tablet 00:00: mg total) 00 by mouth daily as needed For signs of volume overload Furosemide Yes [id number] 20mg Q24H Take 1 Marilynn 20 MG oral 5-06 tablet (20 Sey bold Tablet 00:00: mg total) 00 by mouth daily as needed For signs of volume overload Furosemide Yes [id number] 20mg Q24H Take 1 Marilynn 20 MG oral 5-06 tablet (20 Sey bold Tablet 00:00: mg total) 00 by mouth daily as needed For signs of volume overload Furosemide Yes [id number] 20mg Q24H Take 1 Marilynn 20 MG oral 5-06 tablet (20 Sey bold Tablet 00:00: mg total) 00 by mouth daily as needed For signs of volume overload Furosemide Yes [id number] 20mg Q24H Take 1 Marilynn 20 MG oral 5-06 tablet (20 Sey bold Tablet 00:00: mg total) 00 by mouth daily as needed For signs of volume overload Furosemide 2020- No [id number] 20mg Q24H Take 1 Marilynn 20 MG oral 5-06 12-06 tablet (20 Se ybold Tablet 00:00: 00:00 mg total) 00 :00 by mouth daily as needed For signs of volume overload Ferrous Yes Marilynn Sulfate 4-19 [facility] Dried (Slow 00:00: Release 00 Iron) 45 MG oral Tab CR Ferrous Yes Marilynn Sulfate 4-19 [facility] Dried (Slow 00:00: Release 00 Iron) 45 MG oral Tab CR Ferrous Yes Marilynn Sulfate 4-19 [facility] Dried (Slow 00:00: Release 00 Iron) 45 MG oral Tab CR Ferrous 2020- No Marilynn Sulfate 4-19 10-15 [facility] Dried (Slow 00:00: 00:00 Release 00 :00 Iron) 45 MG oral Tab CR Ferrous 2020- No Marilynn Sulfate 4-19 10-15 [facility] Dried (Slow 00:00: 00:00 Release 00 :00 Iron) 45 MG oral Tab CR tamsulosin Yes .4mg QD Take 0.[address] [facility] (FLOMAX) 3-03 mg by [facility] - 0.4 mg Cp24 09:46: mouth Medic al 24 hr 16 daily. [place] capsule aspirin 81 0 Yes 81mg QD Take [address] MG chewable 3-03 by mouth Luke [facility] - tablet 09:46: daily. [address] folic acid Yes 1mg QD Take [address] [facility] [address] [facility] (FOLVITE) 1 3-03 by mouth Luke [facility] - MG tablet 09:46: daily. Medica l 16 Center buPROPion Yes 300mg QD Take [address] [facility] (WELLBUTRIN 3-03 mg by [facility] - XL) 150 MG 09:46: mouth Medica l 24 hr 16 daily . Center tablet nitroglycer Yes .4mg Place 0.[address] in 3-03 mg under [facility] - (NITROSTAT) 09:46: the tongue Medical 0.4 MG SL 16 every 5 Center tablet (five) minutes as needed for Chest pain Put 1 pill under tongue every 5min as needed for chest pain.No more than 3 doses in 15min.Call 911 if pain is unrelieved 5min after 1st dose . atorvastati Yes 20mg QD Take [address] [facility] n (LIPITOR) 3-03 by mouth Luke s - 20 MG 09:46: daily. Medical tablet 16 Center carvediloL Yes 6.25mg Take 6.[address] [facility] (COREG) 3-03 mg by [facility] - 12.5 MG 09:46: mouth 2 Medical tablet 16 (two) Center times daily with breakfast and dinner. clindamycin Yes Apply [facility] (CLINDAGEL) 3-03 topically [facility] - 1 % gel 09:46: 2 (two) Medical 16 times Center daily as needed. doxycycline Yes 100mg Q.5D Take [address] (DORYX) 100 3-03 mg by [facility] - MG EC 09:46: mouth 2 Medical tablet 16 (two) Center times daily. furosemide Yes 20mg Q.[id number] Take [address] [facility] (LASIX) 20 3-03 [id number] by mouth 3 [facility] - MG tablet 09:46: 3W (three) Medic al 16 times a Center week MON/WED/FR I. HYDROcodone Yes 1{tbl} Take [address] [facility] -acetaminop 3-03 tablet by [facility] - hen (NORCO 09:46: mouth Medica l 7.5-325) 16 every 4 Center 7.5-325 mg (four) per tablet hours as needed for Pain. ondansetron Yes 4mg Take [address] (ZOFRAN) 4 3-03 by mouth 3 [facility] - MG tablet 09:46: (three) Medic al 16 times Center daily as needed for Nausea. sucralfate Yes 1g Q.25D Take [address] [facility] (CARAFATE) 3-03 by mouth 4 [facility] - 100 mg/mL 09:46: (four) Medica l suspension 16 times Center daily. hydrOXYzine Yes 50mg Take [address] [facility] (ATARAX) 50 3-03 by mouth 3 Gwendolyn kes - MG tablet 09:46: (three) Medic al 16 times Center daily as needed for Anxiety. tamsulosin Yes .4mg QD Take 0.[address] [facility] (FLOMAX) 3-03 mg by [facility] - 0.4 mg Cp24 09:46: mouth Medic al 24 hr 16 daily. Center capsule aspirin 81 0 Yes 81mg QD Take [address] MG chewable 3-03 by mouth Luke s - tablet 09:46: daily. Medical 16 Center folic acid Yes 1mg QD Take [address] [facility] [address] [facility] (FOLVITE) 1 3-03 by mouth Luke s - MG tablet 09:46: daily. Medica l 16 Center buPROPion Yes 300mg QD Take [address] [facility] (WELLBUTRIN 3-03 mg by [facility] - XL) 150 MG 09:46: mouth Medica l 24 hr 16 daily . Center tablet nitroglycer Yes .4mg Place 0.[address] in 3-03 mg under [facility] - (NITROSTAT) 09:46: the tongue Medical 0.4 MG SL 16 every 5 Center tablet (five) minutes as needed for Chest pain Put 1 pill under tongue every 5min as needed for chest pain.No more than 3 doses in 15min.Call 911 if pain is unrelieved 5min after 1st dose . atorvastati Yes 20mg QD Take [address] [facility] n (LIPITOR) 3-03 by mouth Luke s - 20 MG 09:46: daily. Medical tablet 16 Center carvediloL Yes 6.25mg Take 6.[address] [facility] (COREG) 3-03 mg by [facility] - 12.5 MG 09:46: mouth 2 Medical tablet 16 (two) Center times daily with breakfast and dinner. clindamycin 0 Yes Apply [facility] (CLINDAGEL) 3-03 topically [facility] - 1 % gel 09:46: 2 (two) Medical 16 times Center daily as needed. doxycycline 0 Yes 100mg Q.5D Take [address] (DORYX) 100 3-03 mg by [facility] - MG EC 09:46: mouth 2 Medical tablet 16 (two) Center times daily. furosemide 0 Yes 20mg Q.[id number] Take [address] [facility] (LASIX) 20 3-03 [id number] by mouth 3 [facility] - MG tablet 09:46: 3W (three) Medic al 16 times a Center week MON/WED/FR I. HYDROcodone Yes 1{tbl} Take [address] [facility] -acetaminop 3-03 tablet by [facility] - hen (NORCO 09:46: mouth Medica l 7.5-325) 16 every 4 Center 7.5-325 mg (four) per tablet hours as needed for Pain. ondansetron Yes 4mg Take [address] (ZOFRAN) 4 3-03 by mouth 3 [facility] - MG tablet 09:46: (three) Medic al 16 times Center daily as needed for Nausea. sucralfate 0 Yes 1g Q.25D Take [address] [facility] (CARAFATE) 3-03 by mouth 4 [facility] - 100 mg/mL 09:46: (four) Medica l suspension 16 times Center daily. hydrOXYzine 0 Yes 50mg Take [address] [facility] (ATARAX) 50 3-03 by mouth 3 Gwendolyn kes - MG tablet 09:46: (three) Medic al 16 times Center daily as needed for Anxiety. tamsulosin 2020-0 Yes .4mg QD Take 0.[address] [facility] (FLOMAX) 3-03 mg by [facility] - 0.4 mg Cp24 09:46: mouth Medic al 24 hr 16 daily. Center capsule aspirin 81 2020-0 Yes 81mg QD Take [address] MG chewable 3-03 by mouth Luke s - tablet 09:46: daily. Medical 16 Center folic acid 0 Yes 1mg QD Take [address] [facility] [address] [facility] (FOLVITE) 1 3-03 by mouth Luke s - MG tablet 09:46: daily. Medica l 16 Center buPROPion Yes 300mg QD Take [address] [facility] (WELLBUTRIN 3-03 mg by [facility] - XL) 150 MG 09:46: mouth Medica l 24 hr 16 daily . Center tablet nitroglycer Yes .4mg Place 0.[address] in 3-03 mg under [facility] - (NITROSTAT) 09:46: the tongue Medical 0.4 MG SL 16 every 5 Center tablet (five) minutes as needed for Chest pain Put 1 pill under tongue every 5min as needed for chest pain.No more than 3 doses in 15min.Call 911 if pain is unrelieved 5min after 1st dose . atorvastati Yes 20mg QD Take [address] [facility] (LIPITOR) 3-03 by mouth Luke s - 20 MG 09:46: daily. Medical tablet 16 Center carvediloL Yes 6.25mg Take 6.[address] [facility] (COREG) 3-03 mg by [facility] - 12.5 MG 09:46: mouth 2 Medical tablet 16 (two) Center times daily with breakfast and dinner. clindamycin Yes Apply [facility] (CLINDAGEL) 3-03 topically [facility] - 1 % gel 09:46: 2 (two) Medical 16 times Center daily as needed. doxycycline Yes 100mg Q.5D Take [address] (DORYX) 100 3-03 mg by [facility] - MG EC 09:46: mouth 2 Medical tablet 16 (two) Center times daily. furosemide Yes 20mg Q.[id number] Take [address] [facility] (LASIX) 20 3-03 [id number] by mouth 3 [facility] - MG tablet 09:46: 3W (three) Medic al 16 times a Center week MON/WED/FR I. HYDROcodone Yes 1{tbl} Take [address] -acetaminop 3-03 tablet by [facility] - hen (NORCO 09:46: mouth Medica l 7.5-325) 16 every 4 Center 7.5-325 mg (four) per tablet hours as needed for Pain. ondansetron Yes 4mg Take [address] (ZOFRAN) 4 3-03 by mouth 3 [facility] - MG tablet 09:46: (three) Medic al 16 times Center daily as needed for Nausea. sucralfate Yes 1g Q.25D Take [address] [facility] (CARAFATE) 3-03 by mouth 4 [facility] - 100 mg/mL 09:46: (four) Medica l suspension 16 times Center daily. hydrOXYzine Yes 50mg Take [address] [facility] (ATARAX) 50 3-03 by mouth 3 Gwendolyn kes - MG tablet 09:46: (three) Medic al 16 times Center daily as needed for Anxiety. tamsulosin Yes .4mg QD Take 0.[address] [facility] (FLOMAX) 3-03 mg by [facility] - 0.4 mg Cp24 09:46: mouth Medic al 24 hr 16 daily. Center capsule aspirin 81 Yes 81mg QD Take [address] MG chewable 3-03 by mouth Luke s - tablet 09:46: daily. Medical 16 Center folic acid Yes 1mg QD Take [address] [facility] [address] [facility] (FOLVITE) 1 3-03 by mouth Luke s - MG tablet 09:46: daily. Medica l 16 Center buPROPion Yes 300mg QD Take [address] [facility] (WELLBUTRIN 3-03 mg by [facility] - XL) 150 MG 09:46: mouth Medica l 24 hr 16 daily . Center tablet nitroglycer Yes .4mg Place 0.[address] in 3-03 mg under [facility] - (NITROSTAT) 09:46: the tongue Medical 0.4 MG SL 16 every 5 Center tablet (five) minutes as needed for Chest pain Put 1 pill under tongue every 5min as needed for chest pain.No more than 3 doses in 15min.Call 911 if pain is unrelieved 5min after 1st dose . atorvastati Yes 20mg QD Take [address] [facility] (LIPITOR) 3-03 by mouth Luke s - 20 MG 09:46: daily. Medical tablet 16 Center carvediloL Yes 6.25mg Take 6.[address] [facility] (COREG) 3-03 mg by [facility] - 12.5 MG 09:46: mouth 2 Medical tablet 16 (two) Center times daily with breakfast and dinner. clindamycin Yes Apply [facility] (CLINDAGEL) 3-03 topically [facility] - 1 % gel 09:46: 2 (two) Medical 16 times Center daily as needed. doxycycline Yes 100mg Q.5D Take [address] (DORYX) 100 3-03 mg by [facility] - MG EC 09:46: mouth 2 Medical tablet 16 (two) Center times daily. furosemide Yes 20mg Q.[id number] Take [address] [facility] (LASIX) 20 3-03 [id number] by mouth 3 [facility] - MG tablet 09:46: 3W (three) Medic al 16 times a Center week MON/THU/ I. HYDROcodone Yes 1{tbl} Take [address] -acetaminop 3-03 tablet by [facility] - hen (NORCO 09:46: mouth Medica l 7.5-325) 16 every 4 Center 7.5-325 mg (four) per tablet hours as needed for Pain. ondansetron Yes 4mg Take [address] (ZOFRAN) 4 3-03 by mouth 3 [facility] - MG tablet 09:46: (three) Medic al 16 times Center daily as needed for Nausea. sucralfate Yes 1g Q.25D Take [address] [facility] (CARAFATE) 3-03 by mouth 4 [facility] - 100 mg/mL 09:46: (four) Medica l suspension 16 times Center daily. hydrOXYzine Yes 50mg Take [address] [facility] (ATARAX) 50 3-03 by mouth 3 Gwendolyn kes - MG tablet 09:46: (three) Medic al 16 times Center daily as needed for Anxiety. famotidine 0 2020- No 20mg Q.5D Take [address] [facility] (PEPCID) 20 3- 03-03 by mouth 2 L ukes - MG tablet 07:57: 00:00 (two) Medica l 17 :00 times Center daily. famotidine 2020-2020- No 20mg Q.5D Take [address] [facility] (PEPCID) 20 - 03-03 by mouth 2 L ukes - MG tablet 07:57: 00:00 (two) Medica l 17 :00 times Center daily. famotidine 2020-2020- No 20mg Q.5D Take [address] [facility] (PEPCID) 20 3-07 18-03 by mouth 2 L ukes - MG tablet 07:57: 00:00 (two) Medica l 17 :00 times Center daily. famotidine 2020- No 20mg Q.5D Take [address] [facility] (PEPCID) 20 07-18-03 by mouth 2 L ukes - MG tablet 07:57: 00:00 (two) Medica l 17 :00 times Center daily. famotidine 2020- No 20mg Q.5D Take [address] [facility] (PEPCID) 20 07-18-03 by mouth 2 L ukes - MG tablet 07:57: 00:00 (two) Medica l 17 :00 times Center daily. pantoprazol 2020-0 Yes 40mg Q.5D Take [address] [facility] e 3-03 tablet (40 [facility] - (PROTONIX) 00:00: mg total) Me dical 40 MG 00 by mouth 2 Center tablet (two) times daily. pantoprazol 2020-0 Yes 40mg Q.5D Take [address] [facility] e 3-03 tablet (40 [facility] - (PROTONIX) 00:00: mg total) Me dical 40 MG 00 by mouth 2 Center tablet (two) times daily. pantoprazol 2020-0 Yes 40mg Q.5D Take [address] [facility] e 3-03 tablet (40 [facility] - (PROTONIX) 00:00: mg total) Me dical 40 MG 00 by mouth 2 Center tablet (two) times daily. pantoprazol 2020-0 Yes 40mg Q.5D Take [address] [facility] e 3-03 tablet (40 [facility] - (PROTONIX) 00:00: mg total) Me dical 40 MG 00 by mouth 2 Center tablet (two) times daily. pantoprazol 2020-0 Yes 40mg Q.5D Take [address] [facility] e 3-03 tablet (40 [facility] - (PROTONIX) 00:00: mg total) Me dical 40 MG 00 by mouth 2 Center tablet (two) times daily. omega-3 2020-2020- No Take by [facility] fatty 3 03- mouth. [facility] - acids-vitam 17:13: 00:00 Medic al in E 1,000 21 :00 Center mg Cap omega-3 2020- No Take by [facility] fatty 07-16 mouth. [facility] - acids-vitam 17:13: 00:00 Medic al in E 1,000 21 :00 Center mg Cap omega-3 2020- No Take by [facility] fatty 07-16 mouth. [facility] - acids-vitam 17:13: 00:00 Medic al in E 1,000 21 :00 Center mg Cap omega-3 2020- No Take by [facility] fatty 07-16 mouth. [facility] - acids-vitam 17:13: 00:00 Medic al in E 1,000 21 :00 Center mg Cap omega-3 2020- No Take by [facility] fatty 07-16 mouth. [facility] - acids-vitam 17:13: 00:00 Medic al in E 1 21 :00 Center mg Cap glucosamine 2020- No 1{tbl} Q.[id number] Take [address] [facility] -chondroiti -07-16 [id number] tablet by [facility] - n 500-400 17:13: 00:00 3D mouth 3 Medi ashlyn mg tablet 09 :00 (three) Center times daily. glucosamine 2020- No 1{tbl} Q.[id number] Take [address] [facility] -chondroiti -07-16 [id number] tablet by [facility] - n 500-400 17:13: 00:00 3D mouth 3 Medi ashlyn mg tablet 09 :00 (three) Center times daily. glucosamine 2020- No 1{tbl} Q.[id number] Take [address] [facility] -chondroiti -07-16 [id number] tablet by [facility] - n 500-400 17:13: 00:00 3D mouth 3 Medi ashlyn mg tablet 09 :00 (three) Center times daily. glucosamine 2020- No 1{tbl} Q.[id number] Take [address] [facility] -chondroiti -07-16 [id number] tablet by [facility] - n 500-400 17:13: 00:00 3D mouth 3 Medi ashlyn mg tablet 09 :00 (three) Center times daily. glucosamine 0 2020- No 1{tbl} [id number] Take [address] [facility] -chondroiti 07-16 [id number] tablet by Antonio - barb 500-400 17:13: 00:00 3D mouth 3 Medi ashlyn mg tablet 09 :00 (three) Center times daily. Zoster Vac 2019-05 Yes [id number] One dose Marilynn Recomb 0-19 now. Seybold Adjuvanted 00:00: Second 50 00 dose given MCG/0.5ML two to six intramuscul months ar Recon AFTER Susp first dose. Zoster Vac 2019-05 Yes [id number] One dose Marilynn Recomb 0-19 now. Seybold Adjuvanted 00:00: Second 50 00 dose given MCG/0.5ML two to six intramuscul months ar Recon AFTER Susp first dose. Zoster Vac 2019-05 Yes [id number] One dose Marilynn Recomb 0-19 now. Seybold Adjuvanted 00:00: Second 50 00 dose given MCG/0.5ML two to six intramuscul months ar Recon AFTER Susp first dose. Zoster Vac 2019-05 Yes [id number] One dose Marilynn Recomb 0-19 now. Seybold Adjuvanted 00:00: Second 50 00 dose given MCG/0.5ML two to six intramuscul months ar Recon AFTER Susp first dose. Zoster Vac 2019-05 Yes [id number] One dose Marilynn Recomb 0-19 now. Seybold Adjuvanted 00:00: Second 50 00 dose given MCG/0.5ML two to six intramuscul months ar Recon AFTER Susp first dose. Zoster Vac 2019-05 Yes [id number] One dose Marilynn Recomb 0-19 now. Seybold Adjuvanted 00:00: Second 50 00 dose given MCG/0.5ML two to six intramuscul months ar Recon AFTER Susp first dose. Zoster Vac 2019-05 Yes [id number] One dose Marilynn Recomb 0-19 now. Seybold Adjuvanted 00:00: Second 50 00 dose given MCG/0.5ML two to six intramuscul months ar Recon AFTER Susp first dose. Zoster Vac 2019-05 Yes [id number] One dose Marilynn Recomb 0-19 now. Seybold Adjuvanted 00:00: Second 50 00 dose given MCG/0.5ML two to six intramuscul months ar Recon AFTER Susp first dose. Zoster Vac 2019-05- No [id number] One dose Marilynn Recomb 0-19 12- now. Seybold Adjuvanted 00:00: 00:00 Second 50 00 :00 dose given MCG/0.5ML two to six intramuscul months ar Recon AFTER Susp first dose. busPIRone 2019-05 Yes [id number] Sheree ey HCl 15 MG 0-15 Seybold oral Tab 00:00: 00 busPIRone 2019-05- No [id number] Renate sey HCl 15 MG 0-15 10-05 Seybold oral Tab 00:00: 00:00 00 :00 Atorvastati 2018-05 Yes [id number] 20mg Take 1 Marilynn n Calcium 0-17 tablet (20 Seyb old 20 MG oral 00:00: mg total) Tab 00 by mouth daily Atorvastati 2018-05 Yes [id number] 20mg Take 1 Marilynn n Calcium 0-17 tablet (20 Seyb old 20 MG oral 00:00: mg total) Tab 00 by mouth daily Atorvastati 2018-05 Yes [id number] 20mg Take 1 Marilynn n Calcium 0-17 tablet (20 Seyb old 20 MG oral 00:00: mg total) Tab 00 by mouth daily Atorvastati 2018-05 Yes [id number] 20mg Take 1 Marilynn n Calcium 0-17 tablet (20 Seyb old 20 MG oral 00:00: mg total) Tab 00 by mouth daily Atorvastati 2018-05 Yes [id number] 20mg Take 1 Marilynn n Calcium 0-17 tablet (20 Seyb old 20 MG oral 00:00: mg total) Tab 00 by mouth daily Atorvastati 2018-05 Yes [id number] 20mg Take 1 Marilynn n Calcium 0-17 tablet (20 Seyb old 20 MG oral 00:00: mg total) Tab 00 by mouth daily Atorvastati 2018-05 Yes [id number] 20mg Take 1 Marilynn n Calcium 0-17 tablet (20 Seyb old 20 MG oral 00:00: mg total) Tab 00 by mouth daily Atorvastati 2018-05 Yes [id number] 20mg Take 1 Marilynn n Calcium 0-17 tablet (20 Seyb old 20 MG oral 00:00: mg total) Tab 00 by mouth daily Atorvastati 2018-05 Yes [id number] 20mg Take 1 Marilynn n Calcium 0-17 tablet (20 Seyb old 20 MG oral 00:00: mg total) Tab 00 by mouth daily Atorvastati 2018-05 Yes [id number] 20mg Take 1 Marilynn n Calcium 0-17 tablet (20 Seyb old 20 MG oral 00:00: mg total) Tab 00 by mouth daily Atorvastati 2018-05 Yes [id number] 20mg Take 1 Marilynn n Calcium 0-17 tablet (20 Seyb old 20 MG oral 00:00: mg total) Tab 00 by mouth daily Atorvastati 2018-05 Yes [id number] 20mg Take 1 Marilynn n Calcium 0-17 tablet (20 Seyb old 20 MG oral 00:00: mg total) Tab 00 by mouth daily Atorvastati 2018-05 Yes [id number] 20mg Take 1 Marilynn n Calcium 0-17 tablet (20 Seyb old 20 MG oral 00:00: mg total) Tab 00 by mouth daily Atorvastati 2018-05 Yes [id number] 20mg Take 1 Marilynn n Calcium 0-17 tablet (20 Seyb old 20 MG oral 00:00: mg total) Tab 00 by mouth daily Atorvastati 2018-05 Yes [id number] 20mg Take 1 Marilynn n Calcium 0-17 tablet (20 Seyb old 20 MG oral 00:00: mg total) Tab 00 by mouth daily Atorvastati 2018-05 Yes [id number] 20mg Take 1 Marilynn n Calcium 0-17 tablet (20 Seyb old 20 MG oral 00:00: mg total) Tab 00 by mouth daily Atorvastati 2018-05 Yes [id number] 20mg Take 1 Marilynn n Calcium 0-17 tablet (20 Seyb old 20 MG oral 00:00: mg total) Tab 00 by mouth daily Aspirin 81 2017-05 Yes [id number] 81mg Take 1 Ke lsey MG oral 0-16 (one) Seybold Chew Tab 00:00: tablet by 00 mouth daily Folic Acid 2017-05 Yes [id number] 1mg Take 1 Marilynn 1 MG oral 0-16 (one) Seybold tablet 00:00: tablet by 00 mouth daily Aspirin 81 2017-05 Yes [id number] 81mg Take 1 Ke lsey MG oral 0-16 (one) Seybold Chew Tab 00:00: tablet by 00 mouth daily Folic Acid 2017-05 Yes [id number] 1mg Take 1 Marilynn 1 MG oral 0-16 (one) Seybold tablet 00:00: tablet by 00 mouth daily Aspirin 81 2017-05 Yes [id number] 81mg Take 1 Ke lsey MG oral 0-16 (one) Seybold Chew Tab 00:00: tablet by 00 mouth daily Folic Acid 2017-05 Yes [id number] 1mg Take 1 Marilynn 1 MG oral 0-16 (one) Seybold tablet 00:00: tablet by 00 mouth daily Aspirin 81 2017-05 Yes [id number] 81mg Take 1 Ke lsey MG oral 0-16 (one) Seybold Chew Tab 00:00: tablet by 00 mouth daily Folic Acid 2017-05 Yes [id number] 1mg Take 1 Marilynn 1 MG oral 0-16 (one) Seybold tablet 00:00: tablet by 00 mouth daily Aspirin 81 2017-05 Yes [id number] 81mg Take 1 Ke lsey MG oral 0-16 (one) Seybold Chew Tab 00:00: tablet by 00 mouth daily Folic Acid 2017-05 Yes [id number] 1mg Take 1 Marilynn 1 MG oral 0-16 (one) Seybold tablet 00:00: tablet by 00 mouth daily Aspirin 81 2017-05 Yes [id number] 81mg Take 1 Ke lsey MG oral 0-16 (one) Seybold Chew Tab 00:00: tablet by 00 mouth daily Folic Acid 2017-05 Yes [id number] 1mg Take 1 Marilynn 1 MG oral 0-16 (one) Seybold tablet 00:00: tablet by 00 mouth daily Aspirin 81 2017-05 Yes [id number] 81mg Take 1 Ke lsey MG oral 0-16 (one) Seybold Chew Tab 00:00: tablet by 00 mouth daily Folic Acid 2017-05 Yes [id number] 1mg Take 1 Marilynn 1 MG oral 0-16 (one) Seybold tablet 00:00: tablet by 00 mouth daily Aspirin 81 2017-05 Yes [id number] 81mg Take 1 Ke lsey MG oral 0-16 (one) Seybold Chew Tab 00:00: tablet by 00 mouth daily Folic Acid 2017-05 Yes [id number] 1mg Take 1 Marilynn 1 MG oral 0-16 (one) Seybold tablet 00:00: tablet by 00 mouth daily Aspirin 81 2017-05 Yes [id number] 81mg Take 1 Ke lsey MG oral 0-16 (one) Seybold Chew Tab 00:00: tablet by 00 mouth daily Folic Acid 2017-05 Yes [id number] 1mg Take 1 Marilynn 1 MG oral 0-16 (one) Seybold tablet 00:00: tablet by 00 mouth daily Aspirin 81 2017-05 Yes [id number] 81mg Take 1 Ke lsey MG oral 0-16 (one) Seybold Chew Tab 00:00: tablet by 00 mouth daily Folic Acid 2017-05 Yes [id number] 1mg Take 1 Marilynn 1 MG oral 0-16 (one) Seybold tablet 00:00: tablet by 00 mouth daily Aspirin 81 2017-05 Yes [id number] 81mg Take 1 Ke lsey MG oral 0-16 (one) Seybold Chew Tab 00:00: tablet by 00 mouth daily Folic Acid 2017-05 Yes [id number] 1mg Take 1 Marilynn 1 MG oral 0-16 (one) Seybold tablet 00:00: tablet by 00 mouth daily Aspirin 81 2017-05 Yes [id number] 81mg Take 1 Ke lsey MG oral 0-16 (one) Seybold Chew Tab 00:00: tablet by 00 mouth daily Folic Acid 2017-05 Yes [id number] 1mg Take 1 Marilynn 1 MG oral 0-16 (one) Seybold tablet 00:00: tablet by 00 mouth daily Aspirin 81 2017-05 Yes [id number] 81mg Take 1 Ke lsey MG oral 0-16 (one) Seybold Chew Tab 00:00: tablet by 00 mouth daily Folic Acid 2017-05 Yes [id number] 1mg Take 1 Marilynn 1 MG oral 0-16 (one) Seybold tablet 00:00: tablet by 00 mouth daily Aspirin 81 2017-05 Yes [id number] 81mg Take 1 Ke lsey MG oral 0-16 (one) Seybold Chew Tab 00:00: tablet by 00 mouth daily Folic Acid 2017-05 Yes [id number] 1mg Take 1 Marilynn 1 MG oral 0-16 (one) Seybold tablet 00:00: tablet by 00 mouth daily Aspirin 81 2017-05 Yes [id number] 81mg Take 1 Ke lsey MG oral 0-16 (one) Seybold Chew Tab 00:00: tablet by 00 mouth daily Folic Acid 2017-05 Yes [id number] 1mg Take 1 Marilynn 1 MG oral 0-16 (one) Seybold tablet 00:00: tablet by 00 mouth daily Aspirin 81 2017-05 Yes [id number] 81mg Take 1 Ke lsey MG oral 0-16 (one) Seybold Chew Tab 00:00: tablet by 00 mouth daily Folic Acid 2017-05 Yes [id number] 1mg Take 1 Marilynn 1 MG oral 0-16 (one) Seybold tablet 00:00: tablet by 00 mouth daily Aspirin 81 2017-05 Yes [id number] 81mg Take 1 Ke lsey MG oral 0-16 (one) Seybold Chew Tab 00:00: tablet by 00 mouth daily Folic Acid 2017-05 Yes [id number] 1mg Take 1 Marilynn 1 MG oral 0-16 (one) Seybold tablet 00:00: tablet by 00 mouth daily ticagrelor 2020- No 90mg Q.5D Take [address] [facility] ([facility]) 09-08 tablet (90 Gwendolyn kes - 90 mg Tab 00:00: 00:00 mg total) Me dical tablet 00 :00 by mouth 2 Center (two) times daily. ticagrelor No 90mg Q.5D Take [address] [facility] ([place]) 09-08 tablet (90 Gwendolyn kes - 90 mg Tab 00:00: 00:00 mg total) Me dical tablet 00 :00 by mouth 2 Center (two) times daily. ticagrelor No 90mg Q.5D Take [address] [facility] ([place]) 09-08- tablet (90 Gwendolyn kes - 90 mg Tab 00:00: 00:00 mg total) Me dical tablet 00 :00 by mouth 2 Center (two) times daily. ticagrelor 2020- No 90mg Q.5D Take [address] [facility] ([place]) 09-08 tablet (90 Gwendolyn kes - 90 mg Tab 00:00: 00:00 mg total) Me dical tablet 00 :00 by mouth 2 Center (two) times daily. ticagrelor 2020- No 90mg Q.5D Take [address] [facility] ([place]) 09-08 tablet (90 Gwendolyn kes - 90 mg Tab 00:00: 00:00 mg total) Me dical tablet 00 :00 by mouth 2 Center (two) times daily. Immunizations Ordered Immunization Filled Immunization Date Status Commen ts Source Name Name Influenza Virus 2021-02-04 Completed Marilynn Se ybold Vaccine, Quadrivalent, 00:00:00 High Dose, Age 65 And Up Influenza Virus 2021-02-04 Completed Marilynn Se ybold Vaccine, Quadrivalent, 00:00:00 High Dose, Age 65 And Up Influenza Virus 2021-02-04 Completed Marilynn Se ybold Vaccine, Quadrivalent, 00:00:00 High Dose, Age 65 And Up Influenza Virus 2021-02-04 Completed Marilynn Se ybold Vaccine, Quadrivalent, 00:00:00 High Dose, Age 65 And Up Influenza Virus 2021-02-04 Completed Marilynn Se ybold Vaccine, Quadrivalent, 00:00:00 High Dose, Age 65 And Up Influenza Virus 2021-02-04 Completed Marilynn Se ybold Vaccine, Quadrivalent, 00:00:00 High Dose, Age 65 And Up Influenza Virus 2021-02-04 Completed Marilynn Se ybold Vaccine, Quadrivalent, 00:00:00 High Dose, Age 65 And Up Influenza Virus 2021-02-04 Completed Marilynn Se ybold Vaccine, Quadrivalent, 00:00:00 High Dose, Age 65 And Up Influenza Virus 2021-02-04 Completed Marilynn Se ybold Vaccine, Quadrivalent, 00:00:00 High Dose, Age 65 And Up Influenza Virus 2021-02-04 Completed Marilynn Se ybold Vaccine, Quadrivalent, 00:00:00 High Dose, Age 65 And Up Influenza Virus 2021-02-04 Completed Marilynn Se ybold Vaccine, Quadrivalent, 00:00:00 High Dose, Age 65 And Up Influenza Virus 2021-02-04 Completed Marilynn Se ybold Vaccine, Quadrivalent, 00:00:00 High Dose, Age 65 And Up Influenza Virus 2021-02-04 Completed Marilynn Se ybold Vaccine, Quadrivalent, 00:00:00 High Dose, Age 65 And Up Influenza Virus 2021-02-04 Completed Marilynn Se ybold Vaccine, Quadrivalent, 00:00:00 High Dose, Age 65 And Up Influenza Virus 2021-02-04 Completed Marilynn Se ybold Vaccine, Quadrivalent, 00:00:00 High Dose, Age 65 And Up Influenza Virus 2021-02-04 Completed Marilynn Se ybold Vaccine, Quadrivalent, 00:00:00 High Dose, Age 65 And Up Influenza Virus 2021-02-04 Completed Marilynn Se ybold Vaccine, Quadrivalent, 00:00:00 High Dose, Age 65 And Up Covid-19 Vaccine 2021-01-25 Completed Marilynn S eybold ([employer]), Mrna-lnp, 00:00:00 Germain Protein, Pf, 30mcg/0.3ml,IM Covid-19 Vaccine 2021-01-25 Completed Marilynn S eybold ([employer]), Mrna-lnp, 00:00:00 Germain Protein, Pf, 30mcg/0.3ml,IM Covid-19 Vaccine 2021-01-25 Completed Marilynn S eybold ([employer]), Mrna-lnp, 00:00:00 Germain Protein, Pf, 30mcg/0.3ml,IM Covid-19 Vaccine 2021-01-25 Completed Marilynn S eybold ([employer]), Mrna-lnp, 00:00:00 Germain Protein, Pf, 30mcg/0.3ml,IM Covid-19 Vaccine 2021-01-25 Completed Marilynn S eybold ([employer]), Mrna-lnp, 00:00:00 Germain Protein, Pf, 30mcg/0.3ml,IM Covid-19 Vaccine 2021-01-25 Completed Marilynn S eybold ([employer]), Mrna-lnp, 00:00:00 Germain Protein, Pf, 30mcg/0.3ml,IM Covid-19 Vaccine 2021-01-25 Completed Marilynn S eybold ([employer]), Mrna-lnp, 00:00:00 Germain Protein, Pf, 30mcg/0.3ml,IM Covid-19 Vaccine 2021-01-25 Completed Marilynn S eybold ([employer]), Mrna-lnp, 00:00:00 Germain Protein, Pf, 30mcg/0.3ml,IM Covid-19 Vaccine 2021-01-25 Completed Marilynn S eybold ([employer]), Mrna-lnp, 00:00:00 Germain Protein, Pf, 30mcg/0.3ml,IM Covid-19 Vaccine 2021-01-25 Completed Marilynn Liu eybold ([facility]), Mrna-lnp, 00:00:00 Germain Protein, Pf, 30mcg/0.3ml,IM Covid-19 Vaccine 2021-01-25 Completed Marilynn Liu eybold ([facility]), Mrna-lnp, 00:00:00 Germain Protein, Pf, 30mcg/0.3ml,IM Covid-19 Vaccine 2021-01-25 Completed Marilynn Liu eybold ([facility]), Mrna-lnp, 00:00:00 Germain Protein, Pf, 30mcg/0.3ml,IM Covid-19 Vaccine 2021-01-25 Completed Marilynn Liu eybold ([facility]), Mrna-lnp, 00:00:00 Germain Protein, Pf, 30mcg/0.3ml,IM Covid-19 Vaccine 2021-01-25 Completed Marilynn Liu eybold ([facility]), Mrna-lnp, 00:00:00 Germain Protein, Pf, 30mcg/0.3ml,IM Covid-19 Vaccine 2021-01-25 Completed Marilynn Liu eybold ([facility]), Mrna-lnp, 00:00:00 Germain Protein, Pf, 30mcg/0.3ml,IM Covid-19 Vaccine 2021-01-25 Completed Marilynn Liu eybold ([facility]), Mrna-lnp, 00:00:00 Germain Protein, Pf, 30mcg/0.3ml,IM Covid-19 Vaccine 2021-01-25 Completed Marilynn Liu eybold ([facility]), Mrna-lnp, 00:00:00 Germain Protein, Pf, 30mcg/0.3ml,IM Shingles IM (Shingrix) 2020-12-12 Completed Ke lsey Seybold 00:00:00 Shingles IM (Shingrix) 2020-12-12 Completed Ke lsey Seybold 00:00:00 Shingles IM (Shingrix) 2020-12-12 Completed Ke lsey Seybold 00:00:00 Shingles IM (Shingrix) 2020-12-12 Completed Ke lsey Seybold 00:00:00 Shingles IM (Shingrix) 2020-12-12 Completed Ke lsey Seybold 00:00:00 Shingles IM (Shingrix) 2020-12-12 Completed Ke lsey Seybold 00:00:00 Shingles IM (Shingrix) 2020-12-12 Completed Ke lsey Seybold 00:00:00 Shingles IM (Shingrix) 2020-12-12 Completed Ke lsey Seybold 00:00:00 Shingles IM (Shingrix) 2020-12-12 Completed Ke lsey Seybold 00:00:00 Covid-19 Vaccine 2020-08-11 Completed Marilynn S eybold ([facility]), Mrna-lnp, 00:00:00 Germain Protein, Pf, 30mcg/0.3ml,IM Covid-19 Vaccine 2020-08-11 Completed Marilynn S eybold (Pf[facility]), Mrna-lnp, 00:00:00 Germain Protein, Pf, 30mcg/0.3ml,IM Covid-19 Vaccine 2020-08-11 Completed Marilynn S eybold (Pfizer), Mrna-lnp, 00:00:00 Germain Protein, Pf, 30mcg/0.3ml,IM Covid-19 Vaccine 2020-08-11 Completed Marilynn S eybold (Pfizer), Mrna-lnp, 00:00:00 Germain Protein, Pf, 30mcg/0.3ml,IM Covid-19 Vaccine 2020-08-11 Completed Marilynn S eybold (Pf[facility]), Mrna-lnp, 00:00:00 Germain Protein, Pf, 30mcg/0.3ml,IM Covid-19 Vaccine 2020-08-11 Completed Marilynn S eybold (Pf[facility]), Mrna-lnp, 00:00:00 Germain Protein, Pf, 30mcg/0.3ml,IM Covid-19 Vaccine 2020-08-11 Completed Marilynn S eybold (Pf[facility]), Mrna-lnp, 00:00:00 Germain Protein, Pf, 30mcg/0.3ml,IM Covid-19 Vaccine 2020-08-11 Completed Marilynn S eybold (Pfizer), Mrna-lnp, 00:00:00 Germain Protein, Pf, 30mcg/0.3ml,IM Covid-19 Vaccine 2020-08-11 Completed Marilynn S eybold (Pfizer), Mrna-lnp, 00:00:00 Germain Protein, Pf, 30mcg/0.3ml,IM Covid-19 Vaccine 2020-08-11 Completed Marilynn S eybold (Pfizer), Mrna-lnp, 00:00:00 Germain Protein, Pf, 30mcg/0.3ml,IM Covid-19 Vaccine 2020-08-11 Completed Marilynn S eybold (Pf[facility]), Mrna-lnp, 00:00:00 Germain Protein, Pf, 30mcg/0.3ml,IM Covid-19 Vaccine 2020-08-11 Completed Marilynn S eybold (Pfizer), Mrna-lnp, 00:00:00 Germain Protein, Pf, 30mcg/0.3ml,IM Covid-19 Vaccine 2020-08-11 Completed Marilynn S eybold (Pfizer), Mrna-lnp, 00:00:00 Germain Protein, Pf, 30mcg/0.3ml,IM Covid-19 Vaccine 2020-08-11 Completed Marilynn S eybold (Pfizer), Mrna-lnp, 00:00:00 Germain Protein, Pf, 30mcg/0.3ml,IM Covid-19 Vaccine 2020-08-11 Completed Marilynn S eybold (Pfizer), Mrna-lnp, 00:00:00 Germain Protein, Pf, 30mcg/0.3ml,IM Covid-19 Vaccine 2020-08-11 Completed Marilynn S eybold (Pfizer), Mrna-lnp, 00:00:00 Germain Protein, Pf, 30mcg/0.3ml,IM Covid-19 Vaccine 2020-08-11 Completed Marilynn S eybold (Pfizer), Mrna-lnp, 00:00:00 Germain Protein, Pf, 30mcg/0.3ml,IM Covid-19 Vaccine 2020-07-14 Completed Marilynn S eybold (Pfizer), Mrna-lnp, 00:00:00 Germain Protein, Pf, 30mcg/0.3ml,IM Covid-19 Vaccine 2020-07-14 Completed Marilynn S eybold (Pfizer), Mrna-lnp, 00:00:00 Germain Protein, Pf, 30mcg/0.3ml,IM Covid-19 Vaccine 2020-07-14 Completed Marilynn S eybold (Pfizer), Mrna-lnp, 00:00:00 Germain Protein, Pf, 30mcg/0.3ml,IM Covid-19 Vaccine 2020-07-14 Completed Marilynn S eybold (Pfizer), Mrna-lnp, 00:00:00 Germain Protein, Pf, 30mcg/0.3ml,IM Covid-19 Vaccine 2020-07-14 Completed Marilynn S eybold (Pfizer), Mrna-lnp, 00:00:00 Germain Protein, Pf, 30mcg/0.3ml,IM Covid-19 Vaccine 2020-07-14 Completed Marilynn S eybold (Pfizer), Mrna-lnp, 00:00:00 Germain Protein, Pf, 30mcg/0.3ml,IM Covid-19 Vaccine 2020-07-14 Completed Marilynn S eybold (Pfizer), Mrna-lnp, 00:00:00 Germain Protein, Pf, 30mcg/0.3ml,IM Covid-19 Vaccine 2020-07-14 Completed Marilynn S eybold (Pfizer), Mrna-lnp, 00:00:00 Germain Protein, Pf, 30mcg/0.3ml,IM Covid-19 Vaccine 2020-07-14 Completed Marilynn S eybold (Pfizer), Mrna-lnp, 00:00:00 Germain Protein, Pf, 30mcg/0.3ml,IM Covid-19 Vaccine 2020-07-14 Completed Marilynn S eybold (Pfizer), Mrna-lnp, 00:00:00 Germain Protein, Pf, 30mcg/0.3ml,IM Covid-19 Vaccine 2020-07-14 Completed Marilynn S eybold (Pfizer), Mrna-lnp, 00:00:00 Germain Protein, Pf, 30mcg/0.3ml,IM Covid-19 Vaccine 2020-07-14 Completed Marilynn S eybold (Pfizer), Mrna-lnp, 00:00:00 Germain Protein, Pf, 30mcg/0.3ml,IM Covid-19 Vaccine 2020-07-14 Completed Marilynn S eybold ([facility]), Mrna-lnp, 00:00:00 Germain Protein, Pf, 30mcg/0.3ml,IM Covid-19 Vaccine 2020-07-14 Completed Marilynn S eybold ([facility]), Mrna-lnp, 00:00:00 Germain Protein, Pf, 30mcg/0.3ml,IM Covid-19 Vaccine 2020-07-14 Completed Marilynn S eybold ([facility]), Mrna-lnp, 00:00:00 Germain Protein, Pf, 30mcg/0.3ml,IM Covid-19 Vaccine 2020-07-14 Completed Marilynn S eybold ([facility]), Mrna-lnp, 00:00:00 Germain Protein, Pf, 30mcg/0.3ml,IM Covid-19 Vaccine 2020-07-14 Completed Marilynn S eybold ([facility]), Mrna-lnp, 00:00:00 Germain Protein, Pf, 30mcg/0.3ml,IM Covid-19 Vaccine 2020-06-23 Completed Marilynn S eybold ([facility]), Mrna-lnp, 00:00:00 Germain Protein, Pf, 30mcg/0.3ml,IM Covid-19 Vaccine 2020-06-23 Completed Marilynn S eybold ([facility]), Mrna-lnp, 00:00:00 Germain Protein, Pf, 30mcg/0.3ml,IM Covid-19 Vaccine 2020-06-23 Completed Marilynn S eybold ([facility]), Mrna-lnp, 00:00:00 Germain Protein, Pf, 30mcg/0.3ml,IM Covid-19 Vaccine 2020-06-23 Completed Marilynn S eybold ([facility]), Mrna-lnp, 00:00:00 Germain Protein, Pf, 30mcg/0.3ml,IM Covid-19 Vaccine 2020-06-23 Completed Marilynn S eybold ([facility]), Mrna-lnp, 00:00:00 Germain Protein, Pf, 30mcg/0.3ml,IM Covid-19 Vaccine 2020-06-23 Completed Marilynn S eybold ([facility]), Mrna-lnp, 00:00:00 Germain Protein, Pf, 30mcg/0.3ml,IM Covid-19 Vaccine 2020-06-23 Completed Marilynn S eybold ([facility]), Mrna-lnp, 00:00:00 Germain Protein, Pf, 30mcg/0.3ml,IM Covid-19 Vaccine 2020-06-23 Completed Marilynn S eybold ([facility]), Mrna-lnp, 00:00:00 Germain Protein, Pf, 30mcg/0.3ml,IM Covid-19 Vaccine 2020-06-23 Completed Marilynn S eybold ([facility]), Mrna-lnp, 00:00:00 Germain Protein, Pf, 30mcg/0.3ml,IM Covid-19 Vaccine 2020-06-23 Completed Marilynn S eybold ([facility]), Mrna-lnp, 00:00:00 Germain Protein, Pf, 30mcg/0.3ml,IM Covid-19 Vaccine 2020-06-23 Completed Marilynn S eybold ([facility]), Mrna-lnp, 00:00:00 Germain Protein, Pf, 30mcg/0.3ml,IM Covid-19 Vaccine 2020-06-23 Completed Marilynn S eybold ([facility]), Mrna-lnp, 00:00:00 Germain Protein, Pf, 30mcg/0.3ml,IM Covid-19 Vaccine 2020-06-23 Completed Marilynn S eybold ([facility]), Mrna-lnp, 00:00:00 Germain Protein, Pf, 30mcg/0.3ml,IM Covid-19 Vaccine 2020-06-23 Completed Marilynn S eybold ([facility]), Mrna-lnp, 00:00:00 Germain Protein, Pf, 30mcg/0.3ml,IM Covid-19 Vaccine 2020-06-23 Completed Marilynn S eybold ([facility]), Mrna-lnp, 00:00:00 Germain Protein, Pf, 30mcg/0.3ml,IM Covid-19 Vaccine 2020-06-23 Completed Marilynn S eybold ([facility]), Mrna-lnp, 00:00:00 Germain Protein, Pf, 30mcg/0.3ml,IM Covid-19 Vaccine 2020-06-23 Completed Marilynn S eybold ([facility]), Mrna-lnp, 00:00:00 Germain Protein, Pf, 30mcg/0.3ml,IM Influenza Virus 2020-01-17 Completed Marilynn Se ybold Vaccine, Quadrivalent, 00:00:00 High Dose, Age 65 And Up Influenza Virus 2020-01-17 Completed Marilynn Se ybold Vaccine, Quadrivalent, 00:00:00 High Dose, Age 65 And Up Influenza Virus 2020-01-17 Completed Marilynn Se ybold Vaccine, Quadrivalent, 00:00:00 High Dose, Age 65 And Up Influenza Virus 2020-01-17 Completed Marilynn Se ybold Vaccine, Quadrivalent, 00:00:00 High Dose, Age 65 And Up Influenza Virus 2020-01-17 Completed Marilynn Se ybold Vaccine, Quadrivalent, 00:00:00 High Dose, Age 65 And Up Influenza Virus 2020-01-17 Completed Marilynn Se ybold Vaccine, Quadrivalent, 00:00:00 High Dose, Age 65 And Up Influenza Virus 2020-01-17 Completed Marilynn Se ybold Vaccine, Quadrivalent, 00:00:00 High Dose, Age 65 And Up Influenza Virus 2020-01-17 Completed Marilynn Se ybold Vaccine, Quadrivalent, 00:00:00 High Dose, Age 65 And Up Influenza Virus 2020-01-17 Completed Marilynn Se ybold Vaccine, Quadrivalent, 00:00:00 High Dose, Age 65 And Up Influenza Virus 2020-01-17 Completed Marilynn Se ybold Vaccine, Quadrivalent, 00:00:00 High Dose, Age 65 And Up Influenza Virus 2020-01-17 Completed Marilynn Se ybold Vaccine, Quadrivalent, 00:00:00 High Dose, Age 65 And Up Influenza Virus 2020-01-17 Completed Marilynn Se ybold Vaccine, Quadrivalent, 00:00:00 High Dose, Age 65 And Up Influenza Virus 2020-01-17 Completed Marilynn Se ybold Vaccine, Quadrivalent, 00:00:00 High Dose, Age 65 And Up Influenza Virus 2020-01-17 Completed Marilynn Se ybold Vaccine, Quadrivalent, 00:00:00 High Dose, Age 65 And Up Influenza Virus 2020-01-17 Completed Marilynn Se ybold Vaccine, Quadrivalent, 00:00:00 High Dose, Age 65 And Up Influenza Virus 2020-01-17 Completed Marilynn Se ybold Vaccine, Quadrivalent, 00:00:00 High Dose, Age 65 And Up Influenza Virus 2020-01-17 Completed Marilynn Se ybold Vaccine, Quadrivalent, 00:00:00 High Dose, Age 65 And Up Influenza Virus 2019-02-16 Completed Marilynn Se ybold Vaccine, High Dose, 00:00:00 Age 65 And Up Influenza Virus 2019-02-16 Completed Marilynn Se ybold Vaccine, High Dose, 00:00:00 Age 65 And Up Influenza Virus 2019-02-16 Completed Marilynn Se ybold Vaccine, High Dose, 00:00:00 Age 65 And Up Influenza Virus 2019-02-16 Completed Marilynn Se ybold Vaccine, High Dose, 00:00:00 Age 65 And Up Influenza Virus 2019-02-16 Completed Marilynn Se ybold Vaccine, High Dose, 00:00:00 Age 65 And Up Influenza Virus 2019-02-16 Completed Marilynn Se ybold Vaccine, High Dose, 00:00:00 Age 65 And Up Influenza Virus 2019-02-16 Completed Marilynn Se ybold Vaccine, High Dose, 00:00:00 Age 65 And Up Influenza Virus 2019-02-16 Completed Marilynn Se ybold Vaccine, High Dose, 00:00:00 Age 65 And Up Influenza Virus 2019-02-16 Completed Marilynn Se ybold Vaccine, High Dose, 00:00:00 Age 65 And Up Influenza Virus 2019-02-16 Completed Marilynn Se ybold Vaccine, High Dose, 00:00:00 Age 65 And Up Influenza Virus 2019-02-16 Completed Marilynn Se ybold Vaccine, High Dose, 00:00:00 Age 65 And Up Influenza Virus 2019-02-16 Completed Marilynn Se ybold Vaccine, High Dose, 00:00:00 Age 65 And Up Influenza Virus 2019-02-16 Completed Marilynn Se ybold Vaccine, High Dose, 00:00:00 Age 65 And Up Influenza Virus 2019-02-16 Completed Marilynn Se ybold Vaccine, High Dose, 00:00:00 Age 65 And Up Influenza Virus 2019-02-16 Completed Marilynn Se ybold Vaccine, High Dose, 00:00:00 Age 65 And Up Influenza Virus 2019-02-16 Completed Marilynn Se ybold Vaccine, High Dose, 00:00:00 Age 65 And Up Influenza Virus 2019-02-16 Completed Marilynn Se ybold Vaccine, High Dose, 00:00:00 Age 65 And Up Influenza Virus 2018-03-02 Completed Marilynn Se ybold Vaccine, High Dose, 00:00:00 Age 65 And Up Influenza Virus 2018-03-02 Completed Marilynn Se ybold Vaccine, High Dose, 00:00:00 Age 65 And Up Influenza Virus 2018-03-02 Completed Marilynn Se ybold Vaccine, High Dose, 00:00:00 Age 65 And Up Influenza Virus 2018-03-02 Completed Marilynn Se ybold Vaccine, High Dose, 00:00:00 Age 65 And Up Influenza Virus 2018-03-02 Completed Marilynn Se ybold Vaccine, High Dose, 00:00:00 Age 65 And Up Influenza Virus 2018-03-02 Completed Marilynn Se ybold Vaccine, High Dose, 00:00:00 Age 65 And Up Influenza Virus 2018-03-02 Completed Marilynn Se ybold Vaccine, High Dose, 00:00:00 Age 65 And Up Influenza Virus 2018-03-02 Completed Marilynn Se ybold Vaccine, High Dose, 00:00:00 Age 65 And Up Influenza Virus 2018-03-02 Completed Marilynn Se ybold Vaccine, High Dose, 00:00:00 Age 65 And Up Influenza Virus 2018-03-02 Completed Marilynn Se ybold Vaccine, High Dose, 00:00:00 Age 65 And Up Influenza Virus 2018-03-02 Completed Marilynn Se ybold Vaccine, High Dose, 00:00:00 Age 65 And Up Influenza Virus 2018-03-02 Completed Marilnyn Se ybold Vaccine, High Dose, 00:00:00 Age 65 And Up Influenza Virus 2018-03-02 Completed Marilynn Se ybold Vaccine, High Dose, 00:00:00 Age 65 And Up Influenza Virus 2018-03-02 Completed Marilynn Se ybold Vaccine, High Dose, 00:00:00 Age 65 And Up Influenza Virus 2018-03-02 Completed Marilynn Se ybold Vaccine, High Dose, 00:00:00 Age 65 And Up Influenza Virus 2018-03-02 Completed Marilynn Se ybold Vaccine, High Dose, 00:00:00 Age 65 And Up Influenza Virus 2018-03-02 Completed Marilynn Se ybold Vaccine, High Dose, 00:00:00 Age 65 And Up Influenza Virus 2017-02-03 Completed Marilynn Se ybold Vaccine, High Dose, 00:00:00 Age 65 And Up Influenza Virus 2017-02-03 Completed Marilynn Se ybold Vaccine, High Dose, 00:00:00 Age 65 And Up Influenza Virus 2017-02-03 Completed Marilynn Se ybold Vaccine, High Dose, 00:00:00 Age 65 And Up Influenza Virus 2017-02-03 Completed Marilynn Se ybold Vaccine, High Dose, 00:00:00 Age 65 And Up Influenza Virus 2017-02-03 Completed Marilynn Se ybold Vaccine, High Dose, 00:00:00 Age 65 And Up Influenza Virus 2017-02-03 Completed Marilynn Se ybold Vaccine, High Dose, 00:00:00 Age 65 And Up Influenza Virus 2017-02-03 Completed Marilynn Se ybold Vaccine, High Dose, 00:00:00 Age 65 And Up Influenza Virus 2017-02-03 Completed Marilynn Se ybold Vaccine, High Dose, 00:00:00 Age 65 And Up Influenza Virus 2017-02-03 Completed Marilynn Se ybold Vaccine, High Dose, 00:00:00 Age 65 And Up Influenza Virus 2017-02-03 Completed Marilynn Se ybold Vaccine, High Dose, 00:00:00 Age 65 And Up Influenza Virus 2017-02-03 Completed Marilynn Se ybold Vaccine, High Dose, 00:00:00 Age 65 And Up Influenza Virus 2017-02-03 Completed Marilynn Se ybold Vaccine, High Dose, 00:00:00 Age 65 And Up Influenza Virus 2017-02-03 Completed Marilynn Se ybold Vaccine, High Dose, 00:00:00 Age 65 And Up Influenza Virus 2017-02-03 Completed Marilynn Se ybold Vaccine, High Dose, 00:00:00 Age 65 And Up Influenza Virus 2017-02-03 Completed Marilynn Se ybold Vaccine, High Dose, 00:00:00 Age 65 And Up Influenza Virus 2017-02-03 Completed Marilynn Se ybold Vaccine, High Dose, 00:00:00 Age 65 And Up Influenza Virus 2017-02-03 Completed Marilynn Se ybold Vaccine, High Dose, 00:00:00 Age 65 And Up Tdap- (Boostrix, 2016-12-26 Completed Marilynn Liu eybold Adacel) 00:00:00 Tdap- (Boostrix, 2016-12-26 Completed Marilynn S eybold Adacel) 00:00:00 Tdap- (Boostrix, 2016-12-26 Completed Marilynn S eybold Adacel) 00:00:00 Tdap- (Boostrix, 2016-12-26 Completed Marilynn S eybold Adacel) 00:00:00 Tdap- (Boostrix, 2016-12-26 Completed Marilynn S eybold Adacel) 00:00:00 Tdap- (Boostrix, 2016-12-26 Completed Marilynn S eybold Adacel) 00:00:00 Tdap- (Boostrix, 2016-12-26 Completed Marilynn S eybold Adacel) 00:00:00 Tdap- (Boostrix, 2016-12-26 Completed Marilynn S eybold Adacel) 00:00:00 Tdap- (Boostrix, 2016-12-26 Completed Marilynn S eybold Adacel) 00:00:00 Tdap- (Boostrix, 2016-12-26 Completed Marilynn S eybold Adacel) 00:00:00 Tdap- (Boostrix, 2016-12-26 Completed Marilynn S eybold Adacel) 00:00:00 Tdap- (Boostrix, 2016-12-26 Completed Marilynn S eybold Adacel) 00:00:00 Tdap- (Boostrix, 2016-12-26 Completed Marilynn S eybold Adacel) 00:00:00 Tdap- (Boostrix, 2016-12-26 Completed Marilynn S eybold Adacel) 00:00:00 Tdap- (Boostrix, 2016-12-26 Completed Marilynn S eybold Adacel) 00:00:00 Tdap- (Boostrix, 2016-12-26 Completed Marilynn S eybold Adacel) 00:00:00 Tdap- (Boostrix, 2016-12-26 Completed Marilynn S eybold Adacel) 00:00:00 Pneumococcal Vaccine, 2016-01-25 Completed Renate sey Seybold Conjugate 13 00:00:00 Influenza Virus 2016-01-25 Completed Marilynn Se ybold Vaccine, age 6 months 00:00:00 and up Pneumococcal Vaccine, 2016-01-25 Completed Renate sey Seybold Conjugate 13 00:00:00 Influenza Virus 2016-01-25 Completed Marilynn Se ybold Vaccine, age 6 months 00:00:00 and up Pneumococcal Vaccine, 2016-01-25 Completed Renate sey Seybold Conjugate 13 00:00:00 Influenza Virus 2016-01-25 Completed Marilynn Se ybold Vaccine, age 6 months 00:00:00 and up Pneumococcal Vaccine, 2016-01-25 Completed Renate sey Seybold Conjugate 13 00:00:00 Influenza Virus 2016-01-25 Completed Marilynn Se ybold Vaccine, age 6 months 00:00:00 and up Pneumococcal Vaccine, 2016-01-25 Completed Renate sey Seybold Conjugate 13 00:00:00 Influenza Virus 2016-01-25 Completed Marilynn Se ybold Vaccine, age 6 months 00:00:00 and up Pneumococcal Vaccine, 2016-01-25 Completed Renate sey Seybold Conjugate 13 00:00:00 Influenza Virus 2016-01-25 Completed Marilynn Se ybold Vaccine, age 6 months 00:00:00 and up Pneumococcal Vaccine, 2016-01-25 Completed Renate sey Seybold Conjugate 13 00:00:00 Influenza Virus 2016-01-25 Completed Marilynn Se ybold Vaccine, age 6 months 00:00:00 and up Pneumococcal Vaccine, 2016-01-25 Completed Renate sey Seybold Conjugate 13 00:00:00 Influenza Virus 2016-01-25 Completed Marilynn Se ybold Vaccine, age 6 months 00:00:00 and up Pneumococcal Vaccine, 2016-01-25 Completed Renate sey Seybold Conjugate 13 00:00:00 Influenza Virus 2016-01-25 Completed Marilynn Se ybold Vaccine, age 6 months 00:00:00 and up Pneumococcal Vaccine, 2016-01-25 Completed Renate sey Seybold Conjugate 13 00:00:00 Influenza Virus 2016-01-25 Completed Marilynn Se ybold Vaccine, age 6 months 00:00:00 and up Pneumococcal Vaccine, 2016-01-25 Completed Renate sey Seybold Conjugate 13 00:00:00 Influenza Virus 2016-01-25 Completed Marilynn Se ybold Vaccine, age 6 months 00:00:00 and up Pneumococcal Vaccine, 2016-01-25 Completed Renate sey Seybold Conjugate 13 00:00:00 Influenza Virus 2016-01-25 Completed Marilynn Se ybold Vaccine, age 6 months 00:00:00 and up Pneumococcal Vaccine, 2016-01-25 Completed Renate sey Seybold Conjugate 13 00:00:00 Influenza Virus 2016-01-25 Completed Marilynn Se ybold Vaccine, age 6 months 00:00:00 and up Pneumococcal Vaccine, 2016-01-25 Completed Renate sey Seybold Conjugate 13 00:00:00 Influenza Virus 2016-01-25 Completed Marilynn Se ybold Vaccine, age 6 months 00:00:00 and up Pneumococcal Vaccine, 2016-01-25 Completed Renate sey Seybold Conjugate 13 00:00:00 Influenza Virus 2016-01-25 Completed Marilynn Se ybold Vaccine, age 6 months 00:00:00 and up Pneumococcal Vaccine, 2016-01-25 Completed Renate sey Seybold Conjugate 13 00:00:00 Influenza Virus 2016-01-25 Completed Marilynn Se ybold Vaccine, age 6 months 00:00:00 and up Pneumococcal Vaccine, 2016-01-25 Completed Renate sey Seybold Conjugate 13 00:00:00 Influenza Virus 2016-01-25 Completed Marilynn Se ybold Vaccine, age 6 months 00:00:00 and up Shingles SQ (Zostavax) 2015-12-27 Completed Ke lsey Seybold 00:00:00 Shingles SQ (Zostavax) 2015-12-27 Completed Ke lsey Seybold 00:00:00 Shingles SQ (Zostavax) 2015-12-27 Completed Ke lsey Seybold 00:00:00 Shingles SQ (Zostavax) 2015-12-27 Completed Ke lsey Seybold 00:00:00 Shingles SQ (Zostavax) 2015-12-27 Completed Ke lsey Seybold 00:00:00 Shingles SQ (Zostavax) 2015-12-27 Completed Ke lsey Seybold 00:00:00 Shingles SQ (Zostavax) 2015-12-27 Completed Ke lsey Seybold 00:00:00 Shingles SQ (Zostavax) 2015-12-27 Completed Ke lsey Seybold 00:00:00 Shingles SQ (Zostavax) 2015-12-27 Completed Ke lsey Seybold 00:00:00 Shingles SQ (Zostavax) 2015-12-27 Completed Ke lsey Seybold 00:00:00 Shingles SQ (Zostavax) 2015-12-27 Completed Ke lsey Seybold 00:00:00 Shingles SQ (Zostavax) 2015-12-27 Completed Ke lsey Seybold 00:00:00 Shingles SQ (Zostavax) 2015-12-27 Completed Ke lsey Seybold 00:00:00 Shingles SQ (Zostavax) 2015-12-27 Completed Ke lsey Seybold 00:00:00 Shingles SQ (Zostavax) 2015-12-27 Completed Ke lsey Seybold 00:00:00 Shingles SQ (Zostavax) 2015-12-27 Completed Ke lsey Seybold 00:00:00 Shingles SQ (Zostavax) 2015-12-27 Completed Ke lsey Seybold 00:00:00 Influenza Virus 2015-01-23 Completed Marilynn Se ybold Vaccine, High Dose, 00:00:00 Age 65 And Up Influenza Virus 2015-01-23 Completed Marilynn Se ybold Vaccine, High Dose, 00:00:00 Age 65 And Up Influenza Virus 2015-01-23 Completed Marilynn Se ybold Vaccine, High Dose, 00:00:00 Age 65 And Up Influenza Virus 2015-01-23 Completed Marilynn Se ybold Vaccine, High Dose, 00:00:00 Age 65 And Up Influenza Virus 2015-01-23 Completed Marilynn Se ybold Vaccine, High Dose, 00:00:00 Age 65 And Up Influenza Virus 2015-01-23 Completed Marilynn Se ybold Vaccine, High Dose, 00:00:00 Age 65 And Up Influenza Virus 2015-01-23 Completed Marilynn Se ybold Vaccine, High Dose, 00:00:00 Age 65 And Up Influenza Virus 2015-01-23 Completed Marilynn Se ybold Vaccine, High Dose, 00:00:00 Age 65 And Up Influenza Virus 2015-01-23 Completed Marilynn Se ybold Vaccine, High Dose, 00:00:00 Age 65 And Up Influenza Virus 2015-01-23 Completed Marilynn Se ybold Vaccine, High Dose, 00:00:00 Age 65 And Up Influenza Virus 2015-01-23 Completed Marilynn Se ybold Vaccine, High Dose, 00:00:00 Age 65 And Up Influenza Virus 2015-01-23 Completed Marilynn Se ybold Vaccine, High Dose, 00:00:00 Age 65 And Up Influenza Virus 2015-01-23 Completed Marilynn Se ybold Vaccine, High Dose, 00:00:00 Age 65 And Up Influenza Virus 2015-01-23 Completed Marilynn Se ybold Vaccine, High Dose, 00:00:00 Age 65 And Up Influenza Virus 2015-01-23 Completed Marilynn Se ybold Vaccine, High Dose, 00:00:00 Age 65 And Up Influenza Virus 2015-01-23 Completed Marilynn Se ybold Vaccine, High Dose, 00:00:00 Age 65 And Up Influenza Virus 2015-01-23 Completed Marilynn Se ybold Vaccine, High Dose, 00:00:00 Age 65 And Up Influenza Virus 2013-02-23 Completed Marilynn Se ybold Vaccine, High Dose, 00:00:00 Age 65 And Up Influenza Virus 2013-02-23 Completed Marilynn Se ybold Vaccine, High Dose, 00:00:00 Age 65 And Up Influenza Virus 2013-02-23 Completed Marilynn Se ybold Vaccine, High Dose, 00:00:00 Age 65 And Up Influenza Virus 2013-02-23 Completed Marilynn Se ybold Vaccine, High Dose, 00:00:00 Age 65 And Up Influenza Virus 2013-02-23 Completed Marilynn Se ybold Vaccine, High Dose, 00:00:00 Age 65 And Up Influenza Virus 2013-02-23 Completed Marilynn Se ybold Vaccine, High Dose, 00:00:00 Age 65 And Up Influenza Virus 2013-02-23 Completed Marilynn Se ybold Vaccine, High Dose, 00:00:00 Age 65 And Up Influenza Virus 2013-02-23 Completed Marilynn Se ybold Vaccine, High Dose, 00:00:00 Age 65 And Up Influenza Virus 2013-02-23 Completed Marilynn Se ybold Vaccine, High Dose, 00:00:00 Age 65 And Up Influenza Virus 2013-02-23 Completed Marilynn Se ybold Vaccine, High Dose, 00:00:00 Age 65 And Up Influenza Virus 2013-02-23 Completed Marilynn Se ybold Vaccine, High Dose, 00:00:00 Age 65 And Up Influenza Virus 2013-02-23 Completed Marilynn Se ybold Vaccine, High Dose, 00:00:00 Age 65 And Up Influenza Virus 2013-02-23 Completed Marilynn Se ybold Vaccine, High Dose, 00:00:00 Age 65 And Up Influenza Virus 2013-02-23 Completed Marilynn Se ybold Vaccine, High Dose, 00:00:00 Age 65 And Up Influenza Virus 2013-02-23 Completed Marilynn Se ybold Vaccine, High Dose, 00:00:00 Age 65 And Up Influenza Virus 2013-02-23 Completed Marilynn Se ybold Vaccine, High Dose, 00:00:00 Age 65 And Up Influenza Virus 2013-02-23 Completed Marilynn Se ybold Vaccine, High Dose, 00:00:00 Age 65 And Up Pneumococcal Vaccine, 2012-08-30 Completed Renate sey Seybold Polysaccharide 00:00:00 Pneumococcal Vaccine, 2012-08-30 Completed Renate sey Seybold Polysaccharide 00:00:00 Pneumococcal Vaccine, 2012-08-30 Completed Renate sey Seybold Polysaccharide 00:00:00 Pneumococcal Vaccine, 2012-08-30 Completed Renate sey Seybold Polysaccharide 00:00:00 Pneumococcal Vaccine, 2012-08-30 Completed Renate sey Seybold Polysaccharide 00:00:00 Pneumococcal Vaccine, 2012-08-30 Completed Renate sey Seybold Polysaccharide 00:00:00 Pneumococcal Vaccine, 2012-08-30 Completed Renate sey Seybold Polysaccharide 00:00:00 Pneumococcal Vaccine, 2012-08-30 Completed Renate sey Seybold Polysaccharide 00:00:00 Pneumococcal Vaccine, 2012-08-30 Completed Renate sey Seybold Polysaccharide 00:00:00 Pneumococcal Vaccine, 2012-08-30 Completed Renate sey Seybold Polysaccharide 00:00:00 Pneumococcal Vaccine, 2012-08-30 Completed Renate sey Seybold Polysaccharide 00:00:00 Pneumococcal Vaccine, 2012-08-30 Completed Renate sey Seybold Polysaccharide 00:00:00 Pneumococcal Vaccine, 2012-08-30 Completed Renate sey Seybold Polysaccharide 00:00:00 Pneumococcal Vaccine, 2012-08-30 Completed Renate sey Seybold Polysaccharide 00:00:00 Pneumococcal Vaccine, 2012-08-30 Completed Renate sey Seybold Polysaccharide 00:00:00 Pneumococcal Vaccine, 2012-08-30 Completed Renate sey Seybold Polysaccharide 00:00:00 Pneumococcal Vaccine, 2012-08-30 Completed Renate sey Seybold Polysaccharide 00:00:00 Influenza Virus 2012-02-05 Completed Marilynn Se ybold Vaccine, age 6 months 00:00:00 and up Influenza Virus 2012-02-05 Completed Marilynn Se ybold Vaccine, age 6 months 00:00:00 and up Influenza Virus 2012-02-05 Completed Marilynn Se ybold Vaccine, age 6 months 00:00:00 and up Influenza Virus 2012-02-05 Completed Marilynn Se ybold Vaccine, age 6 months 00:00:00 and up Influenza Virus 2012-02-05 Completed Marilynn Se ybold Vaccine, age 6 months 00:00:00 and up Influenza Virus 2012-02-05 Completed Marilynn Se ybold Vaccine, age 6 months 00:00:00 and up Influenza Virus 2012-02-05 Completed Marilynn Se ybold Vaccine, age 6 months 00:00:00 and up Influenza Virus 2012-02-05 Completed Marilynn Se ybold Vaccine, age 6 months 00:00:00 and up Influenza Virus 2012-02-05 Completed Marilynn Se ybold Vaccine, age 6 months 00:00:00 and up Influenza Virus 2012-02-05 Completed Marilynn Se ybold Vaccine, age 6 months 00:00:00 and up Influenza Virus 2012-02-05 Completed Marilynn Se ybold Vaccine, age 6 months 00:00:00 and up Influenza Virus 2012-02-05 Completed Marilynn Se ybold Vaccine, age 6 months 00:00:00 and up Influenza Virus 2012-02-05 Completed Marilynn Se ybold Vaccine, age 6 months 00:00:00 and up Influenza Virus 2012-02-05 Completed Marilynn Se ybold Vaccine, age 6 months 00:00:00 and up Influenza Virus 2012-02-05 Completed Marilynn Se ybold Vaccine, age 6 months 00:00:00 and up Influenza Virus 2012-02-05 Completed Marilynn Se ybold Vaccine, age 6 months 00:00:00 and up Influenza Virus 2012-02-05 Completed Marilynn Se ybold Vaccine, age 6 months 00:00:00 and up Influenza Virus 2011-02-27 Completed Marilynn Se ybold Vaccine, age 6 months 00:00:00 and up Influenza Virus 2011-02-27 Completed Marilynn Se ybold Vaccine, age 6 months 00:00:00 and up Influenza Virus 2011-02-27 Completed Marilynn Se ybold Vaccine, age 6 months 00:00:00 and up Influenza Virus 2011-02-27 Completed Marilynn Se ybold Vaccine, age 6 months 00:00:00 and up Influenza Virus 2011-02-27 Completed Marilynn Se ybold Vaccine, age 6 months 00:00:00 and up Influenza Virus 2011-02-27 Completed Marilynn Se ybold Vaccine, age 6 months 00:00:00 and up Influenza Virus 2011-02-27 Completed Marilynn Se ybold Vaccine, age 6 months 00:00:00 and up Influenza Virus 2011-02-27 Completed Marilynn Se ybold Vaccine, age 6 months 00:00:00 and up Influenza Virus 2011-02-27 Completed Marilynn Se ybold Vaccine, age 6 months 00:00:00 and up Influenza Virus 2011-02-27 Completed Marilynn Se ybold Vaccine, age 6 months 00:00:00 and up Influenza Virus 2011-02-27 Completed Marilynn Se ybold Vaccine, age 6 months 00:00:00 and up Influenza Virus 2011-02-27 Completed Marilynn Se ybold Vaccine, age 6 months 00:00:00 and up Influenza Virus 2011-02-27 Completed Marilynn Se ybold Vaccine, age 6 months 00:00:00 and up Influenza Virus 2011-02-27 Completed Marilynn Se ybold Vaccine, age 6 months 00:00:00 and up Influenza Virus 2011-02-27 Completed Marilynn Se ybold Vaccine, age 6 months 00:00:00 and up Influenza Virus 2011-02-27 Completed Marilynn Se ybold Vaccine, age 6 months 00:00:00 and up Influenza Virus 2011-02-27 Completed Marilynn Se ybold Vaccine, age 6 months 00:00:00 and up Influenza Virus 2008-03-06 Completed Marilynn Se ybold Vaccine, age 6 months 00:00:00 and up Influenza Virus 2008-03-06 Completed Marilynn Se ybold Vaccine, age 6 months 00:00:00 and up Influenza Virus 2008-03-06 Completed Marilynn Se ybold Vaccine, age 6 months 00:00:00 and up Influenza Virus 2008-03-06 Completed Marilynn Se ybold Vaccine, age 6 months 00:00:00 and up Influenza Virus 2008-03-06 Completed Marilynn Se ybold Vaccine, age 6 months 00:00:00 and up Influenza Virus 2008-03-06 Completed Marilynn Se ybold Vaccine, age 6 months 00:00:00 and up Influenza Virus 2008-03-06 Completed Marilynn Se ybold Vaccine, age 6 months 00:00:00 and up Influenza Virus 2008-03-06 Completed Marilynn Se ybold Vaccine, age 6 months 00:00:00 and up Influenza Virus 2008-03-06 Completed Marilynn Se ybold Vaccine, age 6 months 00:00:00 and up Influenza Virus 2008-03-06 Completed Marilynn Se ybold Vaccine, age 6 months 00:00:00 and up Influenza Virus 2008-03-06 Completed Marilynn Se ybold Vaccine, age 6 months 00:00:00 and up Influenza Virus 2008-03-06 Completed Marilynn Se ybold Vaccine, age 6 months 00:00:00 and up Influenza Virus 2008-03-06 Completed Marilynn Se ybold Vaccine, age 6 months 00:00:00 and up Influenza Virus 2008-03-06 Completed Marilynn Se ybold Vaccine, age 6 months 00:00:00 and up Influenza Virus 2008-03-06 Completed Marilynn Se ybold Vaccine, age 6 months 00:00:00 and up Influenza Virus 2008-03-06 Completed Marilynn Se ybold Vaccine, age 6 months 00:00:00 and up Influenza Virus 2008-03-06 Completed Marilynn Se ybold Vaccine, age 6 months 00:00:00 and up Vital Signs Vital Name Observation Time Observation Value Comments Source Systolic blood 2021-08-14 17:56:00 126 mm[Hg] Marilynn Seybold pressure Diastolic blood 2021-08-14 17:56:00 72 mm[Hg] Kelse y Seybold pressure Heart rate 2021-08-14 17:56:00 68 /min Marilynn Liu eybold Body temperature 2021-08-14 17:56:00 37 Saba Sheere ey Seybold Respiratory rate 2021-08-14 17:56:00 16 /min Sheree ey Seybold Body height 2021-08-14 17:56:00 170.2 cm Marilynn Liu eybold Body weight 2021-08-14 17:56:00 69.31 kg Marilynn S eybold BMI 2021-08-14 17:56:00 23.93 kg/m2 Marilynn S eybold Body height 2021-08-13 15:58:00 170.2 cm Marilynn S eybold Body weight 2021-08-13 15:58:00 66.679 kg Marilynn S eybold BMI 2021-08-13 15:58:00 23.02 kg/m2 Marilynn S eybold Systolic blood 2021-06-24 15:35:00 144 mm[Hg] Marilynn Seybold pressure Diastolic blood 2021-06-24 15:35:00 78 mm[Hg] Kelse y Seybold pressure Heart rate 2021-06-24 15:35:00 68 /min Marilynn S eybold Respiratory rate 2021-06-24 15:35:00 12 /min Sheree ey Seybold Body height 2021-06-24 15:35:00 167.6 cm Marilynn S eybold Body weight 2021-06-24 15:35:00 66.679 kg Marilynn S eybold BMI 2021-06-24 15:35:00 23.73 kg/m2 Marilynn S eybold Body height 2021-06-03 15:54:00 167.6 cm Marilynn S eybold Systolic blood 2021-04-22 14:35:00 126 mm[Hg] Marilynn Seybold pressure Diastolic blood 2021-04-22 14:35:00 70 mm[Hg] Kelse y Seybold pressure Heart rate 2021-04-22 14:35:00 68 /min Marilynn S eybold Body temperature 2021-04-22 14:35:00 36.56 Saba Sheree ey Seybold Respiratory rate 2021-04-22 14:35:00 16 /min Sheree ey Seybold Body weight 2021-04-22 14:35:00 67.132 kg Marilynn S eybold BMI 2021-04-22 14:35:00 23.18 kg/m2 Marilynn S eybold Oxygen saturation in 2021-04-22 14:35:00 99 /min Marilynn Coyneybold Arterial blood by Pulse oximetry Systolic blood 2021-03-08 16:18:00 110 mm[Hg] Marilynn Seybold pressure Diastolic blood 2021-03-08 16:18:00 60 mm[Hg] Kelse y Seybold pressure Heart rate 2021-03-08 16:18:00 84 /min Marilynn S eybold Body temperature 2021-03-08 16:18:00 36.78 Saba Sheree ey Seybold Respiratory rate 2021-03-08 16:18:00 18 /min Sheree ey Seybold Body height 2021-03-08 16:18:00 170.2 cm Marilynn S eybold Body weight 2021-03-08 16:18:00 66.679 kg Marilynn S eybold BMI 2021-03-08 16:18:00 23.02 kg/m2 Marilynn S eybold Systolic blood 2021-03-01 15:51:00 124 mm[Hg] Marilynn Seybold pressure Diastolic blood 2021-03-01 15:51:00 72 mm[Hg] Kelse y Seybold pressure Heart rate 2021-03-01 15:51:00 84 /min Marilynn S eybold Body temperature 2021-03-01 15:51:00 37.06 Saba Sheree ey Seybold Respiratory rate 2021-03-01 15:51:00 16 /min Sheree ey Seybold Body height 2021-03-01 15:51:00 170.2 cm Marilynn S eybold Body weight 2021-03-01 15:51:00 66.679 kg Marilynn S eybold BMI 2021-03-01 15:51:00 23.02 kg/m2 Marilynn S eybold Body height 2021-03-01 14:55:00 170.2 cm Marilynn S eybold Body weight 2021-03-01 14:55:00 66.679 kg Marilynn S eybold BMI 2021-03-01 14:55:00 23.02 kg/m2 Marilynn S eybold HEIGHT 2021-02-25 10:10:00 170.2 cm WEIGHT 2021-02-25 10:10:00 66.7 kg HEIGHT 2021-02-22 11:50:00 170.2 cm WEIGHT 2021-02-22 11:50:00 65.318 kg HEIGHT 2021-02-25 10:10:00 170.2 cm WEIGHT 2021-02-25 10:10:00 66.7 kg HEIGHT 2021-02-22 11:50:00 170.2 cm WEIGHT 2021-02-22 11:50:00 65.318 kg Systolic blood 2021-02-19 15:08:00 129 mm[Hg] Marilynn Seybold pressure Diastolic blood 2021-02-19 15:08:00 89 mm[Hg] Kelse y Seybold pressure Heart rate 2021-02-19 15:08:00 72 /min Marilynn S eybold Body temperature 2021-02-19 15:08:00 36.89 Saba Sheree ey Seybold Respiratory rate 2021-02-19 15:08:00 18 /min Sheree Matta Body height 2021-02-19 15:08:00 168.7 cm Marilynn moctezuma Body weight 2021-02-19 15:08:00 65.998 kg Marilynn moctezuma BMI 2021-02-19 15:08:00 23.20 kg/m2 Marilynn moctezuma Oxygen saturation in 2021-02-19 15:08:00 99 /min Marilynn Matta Arterial blood by Pulse oximetry Body height 2021-02-13 19:04:00 168.7 cm Marilynn moctezuma Body weight 2021-02-13 19:04:00 66.225 kg Marilynn moctezuma BMI 2021-02-13 19:04:00 23.28 kg/m2 Marilynn moctezuma HEIGHT 2020-07-17 00:09:00 170.2 cm WEIGHT 2020-07-17 00:09:00 74.299 kg HEIGHT 2020-07-17 00:09:00 170.2 cm WEIGHT 2020-07-17 00:09:00 74.299 kg Systolic blood 2021-02-26 11:33:00 148 mm[Hg] [facility] Diastolic blood 2021-02-26 11:33:00 79 mm[Hg] [facility] Heart rate 2021-02-26 11:33:00 86 /min [facility] Body temperature 2021-02-26 11:33:00 36 Saba [facility] Respiratory rate 2021-02-26 11:33:00 18 /min [facility] Oxygen saturation in 2021-02-26 11:33:00 100 /min [facility] Arterial blood by Medical nter Pulse oximetry Body height 2021-02-25 10:10:00 170.2 cm [facility] Body weight 2021-02-25 10:10:00 66.7 kg [facility] BMI 2021-02-25 10:10:00 23.03 kg/m2 [facility] Systolic blood 2020-07-18 07:37:00 120 mm[Hg] [facility] Diastolic blood 2020-07-18 07:37:00 57 mm[Hg] [facility] Heart rate 2020-07-18 07:37:00 81 /min [facility] Body temperature 2020-07-18 07:37:00 37.06 Saba [facility] Respiratory rate 2020-07-18 07:37:00 18 /min [facility] Oxygen saturation in 2020-07-18 07:37:00 99 /min [facility] - Arterial blood by Medical Ce nter Pulse oximetry Body height 2020-07-17 00:09:00 170.2 cm [facility] Body weight 2020-07-17 00:09:00 74.299 kg [facility] BMI 2020-07-17 00:09:00 25.65 kg/m2 [facility] Body temperature 2020-04-30 10:59:00 97.5 [degF] Univ ersity [facility] Physician s Heart Rate 2020-04-30 10:59:00 69 /min [facility] [place] [facility] Systolic blood 2020-04-30 10:59:00 160 mm[Hg] Univer [facility]ity of pressure [place] [facility] Diastolic blood 2020-04-30 10:59:00 97 mm[Hg] Unive rsity of pressure [place] [facility] Body height 2020-04-30 10:59:00 67 [in_us] Universi ty [facility] Physician s Weight 2020-04-30 10:59:00 170 [lb_av] [facility] Physician s Body mass index 2020-04-30 10:59:00 26.63 kg/m2 Unive rsity of (BMI) [Ratio] [place] [facility] Procedures Procedure Date / Time Performed Performing Clinician Sourc e CALCIUM 2021-02-26 04:10:[address] [facility] PTH, INTACT 2021-02-25 18:11:[address] [facility] CALCIUM 2021-02-25 18:11:[address] [facility] TISSUE EXAM 2021-02-25 15:01:[address] [facility] ABORH, MANUAL 2021-02-25 13:25:00 Dariusz Morrissey [facility] ANTIBODY SCREEN 2021-02-25 13:25:00 Dariusz Morrissey [facility] DISSECTION,NECK SELECTIVE 2021-02-25 12:12:00 Juanito Carrasco [facility] PREPARE LEUKO-REDUCED RBC 2020-07-18 23:54:00 Alf Vazquez [facility] HEMOGLOBIN AND HEMATOCRIT 2020-07-18 03:59:00 Alf Vazquez CH, I [facility] BASIC METABOLIC PANEL (7) 2020-07-18 03:59:00 Alf Vazquez [facility] PREPARE LEUKO-REDUCED RBC 2020-07-17 23:54:00 Mckenna Olguin [facility] REPORT OF PROCEDURE - 2020-07-17 15:10:40 Ramiro Up [facility] TISSUE EXAM 2020-07-17 14:49:00 Ramiro Up [facility] UPPER ENDOSCOPY 2020-07-17 14:26:00 Ramiro Up [facility] BASIC METABOLIC PANEL (7) 2020-07-17 12:37:00 Alf Vazquez CH, I [facility] CBC W/PLT COUNT & AUTO 2020-07-17 06:17:00 Terrie Barber [facility] DIFFERENTIAL [facility] BASIC METABOLIC PANEL (7) 2020-07-17 06:17:00 Terrie Barber CH, I [facility] MAGNESIUM 2020-07-17 06:17:00 Alf Vazquez [facility] CBC W/PLT COUNT & AUTO 2020-07-17 06:17:00 Terrie Barber [facility] TRANSFUSE LEUKO-REDUCED 2020-07-17 02:40:[address] [facility] RED BLOOD CELLS [facility] TRANSFUSE LEUKO-REDUCED 2020-07-17 00:02:00 [facility] SARS-COV2/RT-PCR ([facility] & 2020-07-16 18:04:00 Mckenna Olguin CH, I [facility] - REF LABS) [facility] TRANSFUSE LEUKO-REDUCED 2020-07-16 17:55:[address] [facility] RED BLOOD CELLS [facility] B-TYPE NATRIURETIC FACTOR 2020-07-16 17:52:00 Taylor, [facility] (BNP) [facility] IRON, TIBC, % SAT. 2020-07-16 17:51:00 [facility] 2020-07-16 17:51:00 [facility] ECG 12-LEAD 2020-07-16 17:06:22 Unknown, Hl7 Doctor [facility] ECG 12-LEAD 2020-07-16 17:06:22 Unknown, 7 [facility] ECG 12-LEAD 2020-07-16 17:05:57 Unknown, 7 [facility] ECG 12-LEAD 2020-07-16 17:05:57 Unknown, 7 [facility] XR CHEST 1 VIEW PORTABLE 2020-07-16 16:40:00 Mckenna Olguin CH, I [facility] - / BEDSIDE [facility] ABORH, MANUAL 2020-07-16 16:29:00 Aparna Campa [facility] CBC W/PLT COUNT & AUTO 2020-07-16 15:55:[address] [facility] DIFFERENTIAL [facility] COMPREHENSIVE METABOLIC 2020-07-16 15:55:[address] [facility] PANEL [facility] PROTHROMBIN TIME/INR 2020-07-16 15:55:00 Mckenna Olguin [facility] APTT 2020-07-16 15:55:00 Mckenna Olguin [facility] TYPE AND SCREEN, 2020-07-16 15:55:00 Mckenna Olguin [facility] AUTOMATED [facility] CBC W/PLT COUNT & AUTO 2020-07-16 15:55:00 Mckenna Olguin [facility] - DIFFERENTIAL [facility] REPORT OF PROCEDURE - 2020-07-16 00:00:00 ProviderCarmina [facility] - ENDOSCOPY SCAN Scanning [facility] Plan of Care Planned Activity Planned Date Details Comments Source Future Scheduled 2026-12-26 DTAP/TDAP/TD VACCINES [facility] Test 00:[facility]00 (2 - Td or Tdap) [facility] [code = DTAP/TDAP/TD VACCINES (2 - Td or Tdap)] Future Scheduled 2026-12-26 DTAP/TDAP/TD VACCINES [facility] Test 00:00:00 (2 - Td or Tdap) [facility] [code = DTAP/TDAP/TD VACCINES (2 - Td or Tdap)] Future Scheduled 2026-12-26 DTAP/TDAP/TD VACCINES [facility] Test 00:00:00 (2 - Td or Tdap) [facility] [code = DTAP/TDAP/TD VACCINES (2 - Td or Tdap)] Future Scheduled 2026-12-26 DTAP/TDAP/TD VACCINES [facility] Test 00:00:00 (2 - Td or Tdap) [facility] [code = DTAP/TDAP/TD VACCINES (2 - Td or Tdap)] Future Scheduled 2026-12-26 DTAP/TDAP/TD VACCINES [facility] Test 00:00:00 (2 - Td or Tdap) [facility] [code = DTAP/TDAP/TD VACCINES (2 - Td or Tdap)] Future Scheduled 2021-01-[address] [facility] Test 00:00:00 (#1) [code = [facility] INFLUENZA VACCINE (#1)] Future Scheduled 2021-01-[address] [facility] - Test 00:00:00 (#1) [code = [facility] INFLUENZA VACCINE (#1)] Future Scheduled 2021-01-[address] [facility] - Test 00:00:00 (#1) [code = Medical Center INFLUENZA VACCINE (#1)] Future Scheduled 2021-01-[address] [facility] Test 00:00:00 (#1) [code = Medical Center INFLUENZA VACCINE (#1)] Future Scheduled 2020-12-08 Screening for [facility] Col lege of Test 09:58:54 malignant neoplasm of Medici ne colon (procedure) [code = 227607068] Future Scheduled 2020-12-08 Hepatitis C screening [facility] of Test 09:58:54 (procedure) [code = Medicine [id number]] Future Scheduled 2020-12-08 ZOSTER VACCINE (1 of [facility] of Test 09:58:54 2) [code = ZOSTER Medicine VACCINE (1 of 2)] Future Scheduled 2020-12-08 FALL SCREEN [code = [facility] of Test 09:58:54 FALL SCREEN] Medicine Future Scheduled 2020-12-08 MEDICARE AWV [facility] Isai ege of Test 09:58:54 (Initial) [code = Medicine MEDICARE AWV (Initial)] Future Scheduled 2020-12-08 FLU VACCINE > 6 [facility] C ollege of Test 09:58:54 MONTHS [code = FLU Medicine VACCINE > 6 MONTHS] Future Scheduled 2020-12-08 TETANUS SHOT (ADULT) [facility] of Test 09:58:54 [code = TETANUS SHOT Medicin e (ADULT)] Future Scheduled 2016-02-21 SHINGLES VACCINES ([address] [facility] - Test 00:00:00 of 3) [code = Medical Center SHINGLES VACCINES (2 of 3)] Future Scheduled 2016-02-21 SHINGLES VACCINES ([address] [facility] - Test 00:00:00 of 3) [code = Medical Center SHINGLES VACCINES (2 of 3)] Future Scheduled 2016-02-21 SHINGLES VACCINES ([address] [facility] - Test 00:00:00 of 3) [code = Medical Center SHINGLES VACCINES (2 of 3)] Future Scheduled 2016-02-21 SHINGLES VACCINES ([address] [facility] - Test 00:00:00 of 3) [code = Medical Center SHINGLES VACCINES (2 of 3)] Future Scheduled 2016-02-21 SHINGLES VACCINES ([address] [facility] - Test 00:00:00 of 3) [code = Medical Center SHINGLES VACCINES (2 of 3)] Future Scheduled 2015-05-[address] [facility] Test 00:00:00 WELLNESS (YEAR 2 or Medical Center FIRST YEAR if no IPPE) [code = MEDICARE ANNUAL WELLNESS (YEAR 2 or FIRST YEAR if no IPPE)] Future Scheduled 2015-05-[address] [facility] Test 00:00:00 WELLNESS (YEAR 2 or Medical Center FIRST YEAR if no IPPE) [code = MEDICARE ANNUAL WELLNESS (YEAR 2 or FIRST YEAR if no IPPE)] Future Scheduled 2015-05-[address] [facility] Test 00:00:00 WELLNESS (YEAR 2 or Medical Center FIRST YEAR if no IPPE) [code = MEDICARE ANNUAL WELLNESS (YEAR 2 or FIRST YEAR if no IPPE)] Future Scheduled 2015-05-[address] [facility] Test 00:00:00 WELLNESS (YEAR 2 or Medical Center FIRST YEAR if no IPPE) [code = MEDICARE ANNUAL WELLNESS (YEAR 2 or FIRST YEAR if no IPPE)] Future Scheduled 2015-05-[address] [facility] Test 00:00:00 WELLNESS (YEAR 2 or Medical Center FIRST YEAR if no IPPE) [code = MEDICARE ANNUAL WELLNESS (YEAR 2 or FIRST YEAR if no IPPE)] Future Scheduled 1965-08-09 HEPATITIS C SCREENING [facility] [code = HEPATITIS C Medical Center SCREENING] Future Scheduled 1965-08-09 HEPATITIS C [facility]CREENING [facility] 00:[facility]00 [code = HEPATITIS C Medical Center SCREENING] Future Scheduled 1965-08-09 HEPATITIS C [facility]CREENING [facility] Test 00:00:00 [code = HEPATITIS C Medical Center SCREENING] Future Scheduled 1965-08-09 HEPATITIS C SCREENING [facility] Test 00:00:00 [code = HEPATITIS C Medical Center SCREENING] Future Scheduled 1965-08-09 HEPATITIS C [facility]CREENING [facility] Test 00:00[facility]00 [code = HEPATITIS C Medical Center SCREENING] Future Scheduled 1959 COVID-19 VACCINE (1) [facility] Test 00:00:00 [code = COVID-[address] VACCINE (1)] Future Scheduled 1959 COVID-19 VACCINE (1) [facility] Test 00:00:00 [code = COVID-[address] VACCINE (1)] Future Scheduled 1959 COVID-19 VACCINE (1) [facility] Test 00:00:00 [code = COVID-[address] VACCINE (1)] Future Scheduled 1959 COVID-19 VACCINE (1) [facility] Test 00:00:00 [code = COVID-[address] VACCINE (1)] Future Scheduled [address] [facility] Test 00:00:00 malignant neoplasm of Medica l Center colon (procedure) [code = 785050120] Future Scheduled [address] [facility] Test 00:00:00 malignant neoplasm of Medica l Center colon (procedure) [code = 809760686] Future Scheduled [address] [facility] Test 00:00:00 malignant neoplasm of Medica l Center colon (procedure) [code = 429117667] Future Scheduled [address] [facility] Test 00:00:00 malignant neoplasm of Medica l Center colon (procedure) [code = 274633964] Future Scheduled [address] [facility] Test 00:00:00 malignant neoplasm of Medica l Center colon (procedure) [code = 982421343] Future Scheduled COLON CANCER [facility] ege of Test SCREENING: Medicine COLONOSCOPY [code = COLON CANCER SCREENING: COLONOSCOPY] Future Scheduled COVID-19 Vaccine [facility] of Test Evaluation [code = Medicine COVID-19 Vaccine Evaluation] Future Scheduled HEPATITIS C SCREENING [facility] [code = HEPATITIS C Medicine SCREENING] Future Scheduled ZOSTER VACCINE (1 of [facility] of Test 2) [code = ZOSTER Medicine VACCINE (1 of 2)] Future Scheduled FALL SCREEN [code = [facility] Test FALL SCREEN] Medicine Future Scheduled MEDICARE AWV [facility] e[facility] of Test (Initial) [code = Medicine MEDICARE AWV (Initial)] Future Scheduled FLU VACCINE > 6 [facility] ollege of Test MONTHS [code = FLU Medicine VACCINE > 6 MONTHS] Future Scheduled TETANUS SHOT (ADULT) [facility] Test [code = TETANUS SHOT Medicin e (ADULT)] Future Scheduled COLON CANCER [facility] e[facility] of Test SCREENING: Medicine COLONOSCOPY [code = COLON CANCER SCREENING: COLONOSCOPY] Future Scheduled COVID-19 Vaccine [facility] of Test Evaluation [code = Medicine COVID-19 Vaccine Evaluation] Future Scheduled HEPATITIS C SCREENING [facility] of Test [code = HEPATITIS C Medicine SCREENING] Future Scheduled ZOSTER VACCINE (1 of [facility] College of Test 2) [code = ZOSTER Medicine VACCINE (1 of 2)] Future Scheduled FALL SCREEN [code = [employer] of Test FALL SCREEN] Medicine Future Scheduled MEDICARE AWV [facility] Isai ege of Test (Initial) [code = Medicine MEDICARE AWV (Initial)] Future Scheduled FLU VACCINE > 6 [facility] C ollege of Test MONTHS [code = FLU Medicine VACCINE > 6 MONTHS] Future Scheduled TETANUS SHOT (ADULT) [facility] College of Test [code = TETANUS SHOT Medicin e (ADULT)] Future Scheduled Screening for [facility] Col lege of Test malignant neoplasm of Medici ne colon (procedure) [code = 713960515] Future Scheduled COVID-19 Vaccine (1) [facility] of Test [code = COVID-19 Medicine Vaccine (1)] Future Scheduled Hepatitis C screening [facility] of Test (procedure) [code = Medicine [id number]] Future Scheduled ZOSTER VACCINE (1 of [facility] College of Test 2) [code = ZOSTER Medicine VACCINE (1 of 2)] Future Scheduled FALL SCREEN [code = [facility] or College of Test FALL SCREEN] Medicine Future Scheduled MEDICARE AWV [facility] Isai ege of Test (Initial) [code = Medicine MEDICARE AWV (Initial)] Future Scheduled FLU VACCINE > 6 [facility] C ollege of Test MONTHS [code = FLU Medicine VACCINE > 6 MONTHS] Future Scheduled TETANUS SHOT (ADULT) [facility] of Test [code = TETANUS SHOT Medicin e (ADULT)] Encounters Start End Encounter Admission Attending Care Care Encounter Source Date/Time Date/Time Type Type Clinicians Facility Department ID 2022-05-19 2022-05-19 Outpatient MARILYNN BRODERICK [id number] Marilynn 11:00:00 11:00:00 KAREN odom 2022-05-19 2022-05-19 Outpatient MARILYNN FELTON [id number] Marilynn 10:40:00 10:40:00 PORFIRIO odom 2022-04-21 2022-04-21 Outpatient MARILYNN HAMLIN [id number] Marilynn 10:00:00 10:00:00 KARLY Seyb old 2021-10-24 2021-10-24 Outpatient NANCYMARILYNN GARNICA [id number] Marilynn 09:40:00 09:40:00 MESFIN Seybol d 2021-09-12 2021-09-12 Outpatient NATODEBRAMARILYNN [id number] Marilynn 11:20:00 11:20:00 KANZA Seybol d 2021-09-10 2021-09-10 Outpatient MARILYNN BLAIR [id number] Marilynn 15:45:00 15:45:00 NEWTON Seybol d 2021-09-10 2021-09-10 Outpatient MARILYNN CARRASCO [id number] Marilynn 13:00:00 13:00:00 YITZCHAK Seybo ld 2021-09-02 2021-09-02 Outpatient MARILYNN CARDENAS [id number] Marilynn 11:30:00 11:30:00 Seybol d 2021-09-02 2021-09-02 Outpatient MARILYNN CARDENAS [id number] Marilynn 10:30:00 10:30:00 Seybol d 2021-08-28 2021-08-28 Outpatient MARILYNN ROSS [id number] Marilynn 11:15:00 11:15:00 AHMED Seybol d 2021-08-16 2021-08-16 Outpatient MARILYNN CORMIER [id number] Marilynn 08:21:00 08:21:00 RAYMUNDO Seybo ld 2021-08-16 2021-08-16 Outpatient MARILYNN GONZALEZ [id number] Marilynn 00:00:00 00:00:00 POPEYE Seybo ld 2021-08-14 2021-08-14 Office MALGORZATA Mcgee [id number] Marilynn 13:00:00 13:30:00 Visit Juan [id number] Se chao Boss [id number] 2021-08-14 2021-08-14 Outpatient MARILYNN MCGEE [id number] Marilynn 00:00:00 00:00:00 JUAN Seybol d 2021-08-13 2021-08-13 Office NIKKI Ross [id number] Marilynn 10:45:00 11:00:00 Visit [facility] [id number] Se ybold [id number] 2021-08-12 2021-08-12 Outpatient FL1, MARILYNN CARDENAS [id number] Marilynn 10:25:00 10:25:00 [id number] Seyb old 2021-08-12 2021-08-12 Outpatient SWAB, MARILYNN CARDENAS [id number] Marilynn 10:00:00 10:00:00 Seybol d 2021-08-07 2021-08-07 Outpatient ISABEL, SARA CARDENAS [id number] Marilynn 13:30:00 13:30:00 Seybol d 2021-08-05 2021-08-05 Outpatient LAB90 MARILYNN CARDENAS [id number] Marilynn 09:35:00 09:35:00 Seybol d 2021-08-02 2021-08-02 Outpatient MARILYNN BOGGS [id number] Marilynn 14:30:00 14:30:00 ECHO Seybol d 2021-08-02 2021-08-02 Outpatient ISABEL, SARA CARDENAS [id number] Mar[place]nn 11:30:00 11:30:00 Seybol d 2021-08-01 2021-08-01 Outpatient ISABEL, SARA CARDENAS [id number] Mar[place]nn 14:30:00 14:30:00 Seybol d 2021-06-24 2021-06-24 Office NIKKI Ross [id number] Mar[place]nn 09:30:00 10:00:00 Visit [facility] [id number] Se ybold [id number] 2021-06-22 2021-06-22 Outpatient RADIOLOGY, MARILYNN CARDENAS [id number] Marilynn 00:00:00 00:00:00 DEPT Seybol d 2021-06-18 2021-06-18 Outpatient MARILYNN CARDENAS [id number] Marilynn 00:00:00 00:00:00 Seybol d 2021-06-07 2021-06-07 Outpatient LAB90 MARILYNN CARDENAS [id number] Marilynn 13:30:00 13:30:00 Seybol d 2021-06-07 2021-06-07 Telemedici NIKKI SAMUEL [id number] Marilynn 10:40:00 10:40:00 [facility] [id number] Se ybold [id number] 2021-06-07 2021-06-07 Outpatient NAN MARILYNN CARDENAS [id number] Marilynn 00:00:00 00:00:00 MD EUGENIO Seybol d 2021-06-06 2021-06-06 Outpatient HoangHUSSAIN [id number] Mar[place]nn 10:30:00 10:30:00 Seybol d 2021-06-06 2021-06-06 Office NIKKI Brush [id number] Marilynn 10:15:00 10:30:00 Visit [facility] [id number] Seybold [id number] 2021-06-06 2021-06-06 Outpatient MARILYNN CORMIER [id number] Marilynn 00:00:00 00:00:00 RAYMUNDO Seybo ld 2021-06-06 2021-06-06 Outpatient MARILYNN CARDENAS [id number] Mar[place]nn 00:00:00 00:00:00 Seybol d 2021-06-04 2021-06-04 Outpatient LISHA PHIPPS [id number] Mar[place]nn 00:00:00 00:00:00 Seybol d 2021-06-03 2021-06-03 Office NIKKI CARRASCO [id number] Marilynn 10:00:00 10:00:00 Visit [facility] 350.1.13.13 S eybold 1.2.7.2.686 [id number] 2021-06-03 2021-06-03 Outpatient MARILYNN ROSS [id number] Mar[place]nn 00:00:00 00:00:00 AHMED Seybol d 2021-06-03 2021-06-03 Outpatient MARILYNN MARILYNN [id number] Marilynn 00:00:00 00:00:00 Seybol d 2021-05-22 2021-05-22 Outpatient MARILYNN CARDENAS [id number] Marilynn 11:30:00 11:30:00 Seybol d 2021-05-22 2021-05-22 Outpatient MARILYNN CARDENAS [id number] Marilynn 10:30:00 10:30:00 Seybol d 2021-05-09 2021-05-09 Outpatient MARILYNN CARDENAS [id number] Marilynn 11:00:00 11:00:00 Seybol d 2021-05-02 2021-05-02 Outpatient ISABELSARA [id number] Mar[place]nn 14:30:00 14:30:00 Seybol d 2021-05-02 2021-05-02 Office NIKKI BRUSH [id number] Marilynn 09:45:00 09:45:00 Visit [facility] [id number] Se ybold [id number] 2021-05-01 2021-05-01 Outpatient MARILYNN BRUSH [id number] Mar[place]nn 09:30:00 09:30:00 GERARDO Seybol d 2021-04-25 2021-04-25 Office NIKKI BRUSH [id number] Marilynn 15:45:00 15:45:00 Visit [facility] 350.1.13.13 Se ybold 1.2.7.2.686 [id number] 2021-04-25 2021-04-25 Outpatient DAYSI MILES [id number] Mar[place]nn 14:50:00 14:50:00 Seybol d 2021-04-25 2021-04-25 Outpatient FLMARILYNN Bolton [id number] Mar[place]nn 14:15:00 14:15:00 [id number] Seyb old 2021-04-25 2021-04-25 Outpatient LAB39 MARILYNN CARDENAS [id number] Mar[place]nn 14:00:00 14:00:00 Seybol d 2021-04-25 2021-04-25 Outpatient KATHY MARILYNN CARDENAS [id number] Mar[place]nn 00:00:00 00:00:00 MAYKEL Seybol d 2021-04-25 2021-04-25 Outpatient RENATE CHAVEZALVARO CARDENAS [id number] Mar[place]nn 00:00:00 00:00:00 MAYKEL Seybol d 2021-04-23 2021-04-23 Outpatient NANCY MARILYNN CARDENAS [id number] Mar[place]nn 10:20:00 10:20:00 MESFIN Seybol d 2021-04-22 2021-04-22 Outpatient LAB47 MARILYNN CARDENAS [id number] Mar[place]nn 09:30:00 09:30:00 Seybol d 2021-04-22 2021-04-22 Office MALGORZATA Hamlin 1.2.840.114 [id number] Marilynn 08:30:00 09:15:00 Visit Karly 350.1.13.13 Seybold [facility] 1.2.7.2.686 [id number] 2021-04-19 2021-04-19 Outpatient MARILYNN CARDENAS [id number] Mar[place]nn 00:00:00 00:00:00 Seybol d 2021-04-18 2021-04-18 Office NIKKI Brush 1.2.840.114 [id number] Marilynn 15:30:00 15:45:00 Visit Gerardo Christensen 350.1.13.13 Seybold 1.2.7.2.686 [id number] 2021-04-16 2021-04-16 Outpatient LAB90 MARILYNN CARDENAS [id number] Mar[place]nn 08:20:00 08:20:00 Seybol d 2021-04-10 2021-04-10 Outpatient NANCY MARILYNN CARDENAS [id number] [place]nn 00:00:00 00:00:00 MESFIN Seybol d 2021-04-05 2021-04-05 Outpatient MARILYNN CHAVEZ [id number] [place]nn 00:00:00 00:00:00 MAYKEL Seybol d 2021-04-02 2021-04-02 Outpatient MARILYNN CARDENAS [id number] Mar[place]nn 14:15:00 14:15:00 Seybol d 2021-03-26 2021-03-26 Outpatient LAB02 MARILYNN CARDENAS [id number] Mar[place]nn 14:35:00 14:35:00 Seybol d 2021-03-26 2021-03-26 Outpatient MARILYNN CHAVEZ [id number] [place]nn 00:00:00 00:00:00 MAYKEL Seybol d 2021-03-25 2021-03-25 Outpatient LAB90 MARILYNN CARDENAS [id number] [place]nn 13:55:00 13:55:00 Seybol d 2021-03-12 2021-03-12 Outpatient MARILYNN HAMLIN [id number] Mar[place]nn 14:15:00 14:15:00 KARLY Seyb old 2021-03-12 2021-03-12 Telemedici NIKKI Samuel 1.2.840.114 [id number] Marilynn 08:49:04 09:31:35 [facility] 350.1.13.13 Se ybold 1.2.7.2.686 [id number] 2021-03-08 2021-03-08 Office NIKKI Chavez 1.2.840.114 [id number] Mar[place]nn 11:12:01 11:32:01 Visit [facility] [id number] Se ybold 1.2.7.2.686 [id number] 2021-03-04 2021-03-04 Outpatient LAB90 MARILYNN CARDENAS [id number] Mar[place]nn 15:45:00 15:45:00 Seybol d 2021-03-04 2021-03-04 Outpatient MARILYNN CHAVEZ [id number] [place]nn 00:00:00 00:00:00 MAYKEL Seybol d 2021-03-03 2021-03-03 Outpatient MARILYNN CHAVEZ [id number] [place]nn 00:00:00 00:00:00 MAYKEL Seybol d 2021-03-01 2021-03-01 Office NIKKI Chavez 1.2.840.114 [id number] Mar[place]nn 10:43:42 11:03:42 Visit [facility] 350.1.13.13 Se ybold 1.2.7.2.686 [id number] 2021-03-01 2021-03-01 Outpatient JOSUÉ MCCAIN MARILYNN CARDENAS [id number] Mar[place]nn 10:30:00 10:30:00 Seybol d 2021-03-01 2021-03-01 Office NIKKI Carrasco 1.2.840.114 [id number] Mar[place]nn 09:49:53 10:04:[address] [facility] 350.1.13.13 Seybold 1.2.7.2.686 [id number] 2021-02-25 2021-02-26 Outpatient KAREY ZHANG Surgery [id number] [facility] 09:42:00 13:53:[id number] [facility] 09:42:00 13:53:00 Encounter [facility] 2021-02-26 2021-02-26 Outpatient MARILYNN CARRASCO [id number] Marilynn 00:00:00 00:00:00 [facility] Daniel 2021-02-25 2021-02-25 Anesthesia Dariusz Morrissey [facility] [id number] [facility] 12:17:00 16:10:00 Event Christy Bingham [facility] 2021-02-25 2021-02-25 Surgery Luna [facility] [id number] [facility] 12:00:00 14:32:00 [facility] 2021-02-25 2021-02-25 Outpatient MARILYNN EVERETT [id number] Marilynn 00:00:00 00:00:00 JARROD Se ybold A 2021-02-25 2021-02-25 Travel [facility] [id number] [facility] 00:[facility]00 00:00:00 [facility] 2021-02-23 2021-02-23 Outpatient RADIOLOGY, MARILYNN CARDENAS [id number] Marilynn 00:00:00 00:00:00 ROMY Setacosol d 2021-02-22 2021-02-22 Outpatient [facility] [id number] [facility] 12:09:39 23:59:00 2021-02-22 2021-02-22 [facility] [id number] [facility] 11:30:00 23:59:00 Encounter [facility] 2021-02-22 2021-02-22 Travel [facility] [id number] [facility] 00[facility] 00:00:00 [facility] 2021-02-21 2021-02-21 Outpatient MARILYNN CARRASCO [id number] Marilynn 10:27:00 10:27:00 MELLISSA Snello gareth 2021-02-20 2021-02-20 Office Josué Mccain 1.2.840.114 [id number] Marilynn 13:04:03 14:04:03 Visit [place] 350.1.13.13 Se ybold 1.2.7.2.686 [id number] 2021-02-20 2021-02-20 Outpatient SWAB, [facility] MARILYNN CARDENAS [id number] Marilynn 10:50:00 10:50:00 Seybol d 2021-02-20 2021-02-20 Outpatient [facility] MARILYNN CARDENAS [id number] Marilynn 10:50:00 10:50:00 Seybol d 2021-02-20 2021-02-20 Outpatient MARILYNN CARRASCO [id number] Marilynn 00:00:00 00:00:00 MELLISSA Snello gareth 2021-02-20 2021-02-20 Outpatient NAN CARDENAS [id number] Marilynn 00:00:00 00:00:00 MD EUGENIO Seybol d 2021-02-19 2021-02-19 Office NIKKI Samuel 1.2.840.114 [id number] Marilynn 10:03:12 10:23:12 Visit [facility] 350.1.13.13 Se ybold 1.2.7.2.686 [id number] 2021-02-16 2021-02-16 Outpatient SWAB, [facility] AMRILYNN CARDENAS [id number] Marilynn 09:40:00 09:40:00 Seybol d 2021-02-14 2021-02-14 Outpatient LAB39 MARILYNN CARDENAS [id number] Marilynn 16:45:00 16:45:00 Seybol d 2021-02-14 2021-02-14 Outpatient [facility] [place] MARILYNN CARDENAS [id number] Marilynn 16:15:00 16:15:00 Seybol d 2021-02-14 2021-02-14 Outpatient MARILYNN CARDENAS [id number] Marilynn 14:45:00 14:45:00 Seybol d 2021-02-14 2021-02-14 Outpatient MARILYNN CARRASCO [id number] Marilynn 00:00:00 00:00:00 YIANNYK Seybo ld 2021-02-14 2021-02-14 Outpatient MARILYNN CARRASCO [id number] Marilynn 00:00:00 00:00:00 YITZADELIAK Seybo ld 2021-02-13 2021-02-13 Outpatient LAB39 MARILYNN CARDENAS [id number] Marilynn 15:20:00 15:20:00 Seybol d 2021-02-13 2021-02-13 Office NIKKI Carrasco 1.2.840.114 [id number] Marilynn 13:19:24 14:04:24 Visit Mellissa [facility] 350.1.13.13 Seybold 1.2.7.2.686 [id number] 2021-02-11 2021-02-11 Outpatient MARILYNN CARDENAS [id number] Marilynn 09:00:00 09:00:00 Seybol d 2021-02-07 2021-02-07 Outpatient VOR13-NQP MARILYNN CARDENAS [id number] Marilynn 12:00:00 12:00:00 Seybol d 2021-02-07 2021-02-07 Outpatient MARILYNN CARDENAS [id number] Marilynn 09:45:00 09:45:00 Seybol d 2021-02-07 2021-02-07 Outpatient MARILYNN CARRASCO MARILYNN [id number] Marilynn 00:00:00 00:00:00 YITZADELIAK Seybo ld 2021-02-04 2021-02-04 Outpatient JULIETA MUNOZ MARILYNN [id number] Marilynn 10:15:00 10:15:00 Seybol d 2021-02-01 2021-02-01 Outpatient ISABEL, SARA MARILYNN CARDENAS 1000 [id number] Marilynn 11:00:00 11:00:00 Seybol d 2021-01-28 2021-01-28 Outpatient LUNA MARILYNN CARDENAS [id number] [id number] Marilynn 00:00:00 00:00:00 YITZADELIAK Seybo ld 2021-01-28 2021-01-28 Outpatient LUNA MARILYNN CARDENAS [id number] [id number] Marilynn 00:00:00 00:00:00 YITZADELIAK Seybo ld 2021-01-28 2021-01-28 Outpatient RADIOLOGY, MARILYNN CARDENAS [id number] Marilynn 00:00:00 00:00:00 DEPT Seybol d 2021-01-25 2021-01-25 Outpatient MARILYNNALVARO CARDENAS [id number] Marilynn 14:30:00 14:30:00 Seybol d 2021-01-25 2021-01-25 Outpatient MARILYNN CARDENAS [id number] Marilynn 13:30:00 13:30:00 Seybol d 2021-01-25 2021-01-25 Outpatient COVID-PFIZE MARILYNN CARDENAS [id number] Marilynn 11:30:00 11:30:00 R Alvaro ESCOBAR MAIN 2021-01-23 2021-01-23 Outpatient COVID-PFIZE MARILYNN CARDENAS [id number] Marilynn 14:45:00 14:45:00 R Alvaro ESCOBAR 2021-01-14 2021-01-14 Outpatient [place] [facility] [id number] [facility] 12:51:57 13:29:29 JANNET ballesteros of Medicin e 2021-01-11 2021-01-11 [place]patient [place] [facility] [id number] [facility] 12:55:51 13:40:15 JANNET [employer] 2021-01-10 2021-01-10 Outpatient [place], [facility] [id number] [facility] 12:52:03 13:21:49 JANNET [employer] 2021-01-09 2021-01-09 Outpatient [place], [facility] [id number] [facility] 12:51:46 13:52:11 JANNET [employer] 2021-01-08 2021-01-08 Outpatient [place], [facility] [id number] [facility] 12:54:40 13:34:45 JANNET [employer] 2021-01-07 2021-01-07 Outpatient [place], [facility] [id number] [facility] 12:49:38 13:52:45 JANNET [employer] 2020-12-07 2020-12-07 Office [place] 1.2.840.114 [id number] 09:27:04 11:06:47 Visit Jannet AMBULATOR 350.1.13.21 Y 0.2.7.2.686 [id number] 2020-12-07 2020-12-07 Office [place], [place] 1.2.840.114 [id number] [facility] 09:27:04 11:06:47 Visit Jannet AMBULATOR 350.1.13.21 College Y 0.2.7.2.686 of [id number] Medi juan carlos 800 e 2020-11-22 2020-11-22 Outpatient HIPOLITO [id number] Marilynn 00:00:00 00:00:00 Seybol d 2020-08-27 2020-08-27 Office [place] 1.2.840.114 [id number] 12:43:21 13:34:02 Visit Lisa AMBULATOR 350.1.13.21 Anahy Y 0.2.7.2.686 [id number] 2020-08-27 2020-08-27 Office [place] 1.2.840.114 [id number] [facility] 12:43:21 13:34:02 Visit Lisa AMBULATOR 350.1.13.21 College Anahy Y 0.2.7.2.686 of [id number] [facility] juan carlos 800 e 2020-07-16 2020-07-18 Emergency ER Mckenna Olguin [facility] [id number] 15:19:00 09:46:00 Alf Vazquez [facility] 2020-07-17 2020-07-17 Surgery Mckinley, [facility] [id number] 15:00:00 16:00:00 [facility] 2020-07-17 2020-07-17 Anesthesia Kailash, [facility] [id number] [facility] 14:36:00 14:57:00 Event [facility] 2020-07-16 2020-07-16 Emergency ER [facility] Emergency [id number] [facility] 13:52:00 13:52:00 2020-07-16 2020-07-16 Orders [facility] [id number] 00:00:00 00:00:00 Only [facility] 2020-07-16 2020-07-16 Travel [facility] [id number] [facility] 00:00:00 00:00:00 [facility] 2020-06-21 2020-06-21 Office [place] 1.2.840.114 [id number] 12:49:06 14:31:12 Visit Jannet AMBULATOR 350.1.13.21 Y 0.2.7.2.686 [id number] 2020-06-21 2020-06-21 Office [place] 1.2.840.114 [id number] [facility] 12:49:06 14:31:12 Visit Jannet AMBULATOR 350.1.13.21 College Y 0.2.7.2.686 of [id number] [facility] juan carlos 800 e 2020-05-24 2020-05-24 Office [place] 1.2.840.114 [id number] 13:34:31 15:16:19 Visit Jannet AMBULATOR 350.1.13.21 Y 0.2.7.2.686 [id number] [facility] 2020-05-24 2020-05-24 [place] 1.2.840.114 [id number] [facility] 13:34:31 15:16:19 Visit Jannet AMBULATOR 350.1.13.21 College Y 0.2.7.2.686 [id number] [facility] 800 e 2020-04-30 2020-04-30 Appointmen ROGER VIDALES Oral & [id number] 11:00:00 11:00:00 t; LAURA Maxillofaci i ty of CHARANJIT VIDALES al [place] SANCHEZ DDS ans Results Test Description Test Time Test Comments Results Result Comments Source Tissue Exam 2021-02-28 15:11:50 Test Item Value Reference Range Interpretation Comme nts Case Report (test code = 104) Surgical Pathology Report Case: [id number] Authorizing Provider: Mellissa Carrasco, Collected: 02/25/2021 03:01 PM Ordering Location: [facility] PERIOPERATIVE Received: 02/25/2021 04:37 PM SERVICES Pathologist: Amanda Krueger MD Specimen: Neck, Right, 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 DIAGNOSIS (test code = 3220) a9ifsWQrOECvf8rwFBVmgJIqCjBeCoPmJiQvGh dWMxIHtccnRmMVxlcGljOTYwMVxhbnNpXHNwbHRw U4NzyzpgPSocSI9mCE6khUogoJRavXNyWJDzHpDg e2qxj796xULun3akBTZIlrhtnIx2iMyoB93xp5U5 WcuoF76jwFKuIKT0HKWwWGIngFVqRUSjJQA2FGXg mZOzT4mzKMYyYW2uczmzCIhuISqgWGLryOH2QCIm aUJdZ0TlMSFlFKelEGXkvqt4VqPyXg4zuEGnxAvz XZnlSGRyRBKpLWyyFLPmXgBaSSaLBHacNc8TUJPp FKAXN0tHOL9FB7syZGYPCFfNZUsLCMPKECUSLQna QERQD2TZH7MDQ078FSAsmyUiNRNGXmRyT8NrFIoP UYDwBAoLTHayBg7QUUFxPZOUF9eOUQLKNXEWBeBC PVYKO1OIYFjEURJPJhDPGm3RDFXxHL67WOudYFJk FMFeQDAFU5CKAEAKYPLZF1TVCSmQOFHVTP9OHYO8 QDHfSeSXKIkfQCOyOZOzPMaJChLLP7IWNQVSJLJF AsPPS86aUKSYK1YFHAxqCQZsVFGiSJGLU3IqUZFz TZOCT0SXBGGPIdZRGDYMNb5SZAcbS47QIBMQFTWK IFRyCE3UUVIEQ74ZTWQNUSNfP2yGLOMJUV2EEEVQ Z4VTSHVOEHESAZSHGYwCImJPOL4UNQTkil93CPA5 RqQfe9T4WUO6OPBhBYYcm6nlEWJufUMzRfHuFvCm QxLzOfywhFUdVCGaHrHcg9ajl457hYLat4mkCWEw IhY7cLLvMKOorBGeQ633WFEdNSgdz1jad6HaKUEa xZVdc7E5XXRZzrjecOh4lNbiE83ne7Y6RyvhY6yp HBYjHJCuH3RhYF0wVKSwIbb1GVD5COX7OQWuWIRo K3KiXJ9sOMEfiCJtAUn4z9rlwZxeHFXlDOY1q7ap BIjwwbVsWD9vxc5kzLc0b2gdrfNnWLGsGYPewBVO QLJfY2AmtTkcXz7lhHh9lNijRhtkXBD0Rla6FN1h tj74xir6dJauDAIkzzvlXdA1ZCedCVKvyjfgSFq8 IHeyXGMkiKL5FYNggAXqJ6NuIBRaAS7psbt6TGI2 DUtpCYWkIsA6UABtlSVkRZEdsTcmWHflv825NUF5 IzBaQH0oE4Jmd2B0mL7bkMUoXPUxyDQjFqXmUOHh yy9cbKDtWFubb9GuRBV4dwJ1wBKewYBeTBDpFvX2 GKjaAA5csd44SPFzQSZ4pk7tfIXycSdngwIgeTLw JMshY7PsXDXmw273EUPhX0UqHNQxl0M3bqVpReCb KSXsuJJ5evE9ZSQcNY3rrgsiz5zmHGoqVQkfMWZv ejC4uyX3AAGbpEQzK8UjcS7cUYNfJI8mqndus5dj AFP3SMngRVRyGYD3XdAnQNTof4Ldldq9HmAeg6Xh mIOpZJttA93wu831IFQxgpHoI7eeoTFsgxhyvQKk opdrDAzqplJ0EMYcJNhfcaygPAUfEGczP9fdVyIk FNQcgSinZPvfm9QnLPWfTKOfQjWulLNoBIMhEcy3 ZLVqhDUrCVZoBqAkR4gyzwwgYeHMOXNhm6jbJ4pu sNWBvMLoQ1InKUfbuiVxUWyvCJpvUiExAPg6GP47 GzFnVBGhnl86 COMMENT (test code = 3359) h0vesHKqRRSmcXH7PnApRPCxe6pil4HgaVUivHFl GDyfoCKrwgPgju60yKG1eU98NQ8sCUFrIsV1WWTg ahQ6Wjo7JQOoTULzpDAdQ976d1drq2ylqfAjgMD4 vHeeEGYygqebMmB1KZexYVSkvktkXOx3TBruEZMr xKF1PYVffAHwW3DcFQJdRC3iuyi9TWR0EJoxBWWf DjN4CWFylBXgKVZgbAjpBJfod678SSQ2XaOdIXWc nqDymNyngW6tDaCoCDVNgc5tXSErxcEXWBwzz2Sd O4abb5KoQT1qwVmjdAXtWC8uTJTsEMCeMk49NHNd zEXfsi5lnTVba60sMDAaOAVwXaMmYY0qyMTgvG== CPT Code(s) (test code = 3357) w2oxkUMvTBJokXY1IcPhBWFnz0vqn0RfjETg cGFy BWvxvLKxfjJirs09bYM4wF82RS1yZACtEmN6HMYm pwR9Ifa7EEYlDJJcfWLxV784c4sgb6vtmvVqiQF4 vIelFXWkuoycAzO4DFegLJHqaghnEMq9YAteWPEe bQO9RHRvvGVcV9FfRUEnEJ2ovgy4NSL5SPbfIVZo MfX5LZJjuRKqCRAxxVtiRCxdc917BHA1CiEkWSQn zfByzMgkcZ6cWhMeUVL5BGJsQ4sbBBB7 CLINICAL HISTORY (test code = 3356) x0mutLGfXZYfwLY6YvZnGIWgy1qab2N sdHBncGFy QHydoZJopiZxqe42nQI5oU40UB5aUESjIkK3BBLp ypM9Kps9HUHpENZtnYJiJ736q0ppa5kxtuWzdFR1 AAKqDXDvN4KiWP3dOCAxkBQgP68kpFTfCSK6RHKy MHHhbSHqTCNwTPT8CCIhaMUwQ6dmTCRjGC3wufql FHezHIoyDFTwcQE2MZZfyQXhQ3LlVNEsNOqgBVSt jjj0EbRaAg9ebQVgbYsxARwhSEXrYKbyBSdbyVJa wXcrUTqpgFHuhiuvkgLkCYDxKWCQHHAts4Btm7rb AOJbOIHptqQeC5LrBIg0bYFlVR5oVODjuEFjtK== SPECIMEN SOURCE (test code = 3377) l2uhsORySZOfpZL8UqEpHFRia0fcu3Fs dHBncGFy RWqxbQWdtvBubd88cHP8eG48DO7xBTSjYaP0HXMt nuW9Aog5MGQiGPUpjCYdU123d5ytq3zpxmPmgAY4 NYSrSFHpJ1HxTP3fWAFxfDHkD4trYMZsYWIsD8Sz NA7dUVQvXcy7LHJ7BGr7LZTdnTYpduAfSdCsURUk fZUyyPM7HZPlLF0ilnmdTAbaECkmZBIgxxW6FRAk aPOxR6KxSSXaXU1sfrfyWXX2CKziKDJsUGP3JxCp VUEoj4Yinmn3UnKzbWLxLRnzyOWszxiyQTkwkmEr oHsjqL0eFtIiHSvtGyKkI8heCvFygULkVfQocber UmlnaHRccGFyfQ== GROSS DESCRIPTION (test code = 3366) s0nvuFVfGFCdtKCdTqPmYFByYEWyx5 lcZGVmbGFu [file] MICROSCOPIC DESCRIPTION (test code = e2rpzUGbLWBxdYP7SxAbKBErz0sbj7 BsdHBncGFy 3371) QLyibNTjxaXtkp62sTS9sW37VN7dQTDhMlN5CWUc eoN2Wgs1VLBuWPJhiFWkV532i8stw1vufeLezFD8 qJpsRJBqjznpFgU9MFdbUNMqealyNRd9GYlmKQPc cVC3OGWmoFFwQ7ZiRGYjDX5tfdk4MOY0LPpvQPQv DsM2GHIsfOCuTSWrhUgvVGhij937ZTE0UbKjXGKt wpLfbQhyaL6oEdBuYDZFTRSuw4OzUENsvGJgmF== Gross assessment was performed at (test [facility] enter, code = 2777) Department of Pathology, [address] [place] [address], Technical component was performed at [facility] er, (test code = 2778) Department of Pathology, [address] [place] [address], Professional component was performed at [facility] enter, (test code = 2779) Department of Pathology, [address] [place] [address], [facility] CampusTISSUE [id number] 15:11:50Surgical Pathology Report Case: [id number] Authorizing Provider: Mellissa Carrasco, Collected: 02/25/2021 03:01 PM OrderingLocation: [facility] PERIOPERATIVE Received: 02/25/2021 04:37 PM SERVICES Pathologist: Amanda Krueger MD Specimen: Neck, Right, 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 LYMPH NODES, RIGHT NECK LEVELS II AND III, DISSECTION:- ONE OF EIGHT LYMPH NODES, 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 EtanWeinsmac was notified of the above diagnosis on 02/28/2021.96823Anslasktqp to cervical lymph nodeNemac RightReceived fresh labeled the patient's name, accession number and "right neck dissection level2 and 3" is a 6.7 x 3.0 x 1.1 cm unoriented portion of perry-red, fibrous, indurated muscle and fibroadipose tissue. Sectioning of the muscle reveals a 2.7 x 2.0 x 1.3 cm saucedo-white, ill-defined, firm mass involving 2 possible lymph nodes and adjacent fat. The 2 grossly positive lymph nodes range from0.7-0.9 cm in greatest dimension. Multiple additional lymph nodes ranging from 0.2-0.4 cm in greatest dimension are also identified. Alley Tender sections are submitted as follows:Section vntaU4-P2-nwim and 2 grossly positive lymph nodes, bisectedA3-1 possible lymph node, trisected A4-1 possible lymph node, bisectedA5-1 possible lymph node, bisectedA6-5 possible lymph nodesFRENCH Salazar HT(ASCP)PerformedBaylor [facility], Department of Pathology, [address] [place] [address], [facility], [facility] of Pathology, [address] [place] [address], [facility], Department of Pathology, [address] [place] [address], Vnsomdi 2021-02-26 05:04:21 Test Item Value Reference Range Interpretation Comments Calcium (test code = 9.4 mg/dL 8.4-10.2 59168-4) GERARDO (test code = GERARDO) Attending Anesthesiologist ID - RAYRAY G Lab Interpretation (test Normal code = 26559-9) [facility] CampusCALCI[facility]2021-[facility]-12 05:04:21 Test Item Value Reference Range Interpretation Comments CALCIUM (BEAKER) (test code = 697) 9.4 mg/dL 8.4-10.2 Attending Anesthesiologist ID - RAYRAY GPTH, [id number] 18:57:15 Test Item Value Reference Range Interpretation Comments PTH (test code = 2731-8) 85.0 pg/mL 8.5-72.5 H GERARDO (test code = GERARDO) Attending Anesthesiologist ID - DB Lab Interpretation (test Abnormal code = 85610-0) [facility] CampusPTH, [id number] 18:57:15 Test Item Value Reference Range Interpretation Comments PARATHYROID HORMONE INTACT 85.0 pg/mL 8.5-72.5 H (BEAKER) (test code = 577) Attending Anesthesiologist ID - [id number] 18:44:53 Test Item Value Reference Range Interpretation Comments CALCIUM (BEAKER) (test code = 697) 9.4 mg/dL 8.4-10.2 Attending Anesthesiologist ID - DBAntibody [id number] 15:11:00 Test Item Value Reference Range Interpretation Comments Ab Scrn (test code = 890-4) NEGATIVE peg [facility] CampusABORH, [id number] 14:23:00 Test Item Value Reference Range Interpretation Comments ABO Grouping (test code = 2588) A Rh Factor (test code = 2589) POS [facility] CampusPrepare Leuko-Red [id number] 23:54:00 Test Item Value Reference Range Interpretation Comments CROSSMATCH (test code = 2264) COMPATIBLE Unit ABO (test code = A Pos 0209605) UNIT NUMBER (test code = [id number] 934-0) Status (test code = 9929652) TX_TIMEINCHART Blood Bank Product (test code RED BLOOD CELLS = 2263) PRODUCT CODE (test code = N1127Q36 933-2) [facility] CampusPrep[facility] Leuko-Red [id number] 23:54:00 Test Item Value Reference Range Interpretation Comments CROSSMATCH (test code = 2264) COMPATIBLE Unit ABO (test code = A Pos 9698259) UNIT NUMBER (test code = [id number] 934-0) Status (test code = 2299930) TX_TIMEINCHART Blood Bank Product (test code RED BLOOD CELLS = 2263) PRODUCT CODE (test code = T6113Q39 933-2) [facility] CampusPrepare Leuko-Red [id number] 23:54:00 Test Item Value Reference Range Interpretation Comments CROSSMATCH (test code = 2264) COMPATIBLE Unit ABO (test code = A Pos 7615620) UNIT NUMBER (test code = [id number] 934-0) Status (test code = 8377282) TX_TIMEINCHART Blood Bank Product (test code RED BLOOD CELLS = 2263) PRODUCT CODE (test code = D8379V43 933-2) [facility] CampusPrep[facility] Leuko-Red [id number] 23:54:00 Test Item Value Reference Range Interpretation Comments CROSSMATCH (test code = 2264) COMPATIBLE Unit ABO (test code = A Pos 1730913) UNIT NUMBER (test code = [id number] 934-0) Status (test code = 8427413) TX_TIMEINCHART Blood Bank Product (test code RED BLOOD CELLS = 2263) PRODUCT CODE (test code = X8474K68 933-2) [facility] CampusPrep[facility] Leuko-Red [id number] 23:54:00 Test Item Value Reference Range Interpretation Comments CROSSMATCH (test code = 2264) COMPATIBLE Unit ABO (test code = A Pos 1819191) UNIT NUMBER (test code = [id number] 934-0) Status (test code = 5199874) TX_TIMEINCHART Blood Bank Product (test code RED BLOOD CELLS = 2263) PRODUCT CODE (test code = N1412R92 933-2) [facility] CampusTissue [id number] 16:32:00 Test Item Value Reference Range Interpretation Comments Case Report (test code Surgical Pathology = 104) Report Case: [id number] Authorizing Provider: Ramiro Up MD Collected: 07/17/2020 02:49 PM Ordering Location: [address] Received: 07/18/2020 08:32 AM Service Pathologist: Khadar Davis MD Specimen: Biopsy, Gastric, spybx ulcer r/o h.pylori DIAGNOSIS (test code = m1xucCWlORLsj8hvXPXdjC 3220) FuZzEwMzNcZnRuYmpcdWMx IHtccnRmMVxlcGljOTIwMl btevKlOATelPNaG3Vdapnl FJnzTN4fYA1tzPhzyVHpnQ KfZUIxUwIbw8oqa969xULj j9skBZVMxdtzcTy0dQzyJ6 1fs7A1NihbM61ouMRfMRsd bGFpblxmczIwIFBBUlQgQS YJSGFWFgoPEFMDV6JVJGLC W0WsB7JLZZFLQTECDVICS4 FDOipvJQBrNe7QR5BQW3wQ SQLyKeVBU7ZQUnNmV1TDHL JPUEFUSFkuXHBhciBORUdB EDkDIMDXV9RdQV6MDMFMOE 5WVIKWPREEEFjED4uCXPCF SQFRYQJGWPEmYM4STSyNKq AZITKXERFQVrTWWw5VXF0b sKQuGYwHYeRAPG5tE0HDCb JZIFNUQUlOIEZPUiBIRUxJ E02IUNLSNQRtACXvUsJXTE PCYmJuXKfjKVG4w6wsqTBb XHNzdGUxODAwMFxhbnNpXG MvTqqfosnbXIFrNYV1fgPz VKPgJVyyQYFvDGniNm9cpT LjoSzhKlEsFSGbi6iecuWE hmpgqBh9v5cxYEGfQwM9bC ToXGnsM4llptFcaEZyBULk HKc3kU41QRUuvN8jiMRdYA mjnsEgVkE7OHwwZCXvExC8 ZUCnjFGqBAYpA4pyQFPzIW ljZQLlCSxcbZXwKMG0zUzx x4N3wKEkdMRdjVlqCcSfTe DtHiYNb6AmAPx2yKtmO6Cw IWCbSuB3uPAtOKIlVYilLX UaBKYspzH0eJ83NCkhfnU3 vMNvz2Dsz43tw608mW7ibZ ZnUWJ0NPDyWVAcyQGmHCBk EIM7NPAsyBVgX6ylDNGtOJ 7uzbkpCOmpHGiyTWLodLW7 ZNLzkPPmO1WrDNBxURyyWM Ofhsw8UdHeDm3rdRZsvLhz ADnck5ecu4hdsWKtRcj4MH DzCwMiBrvgPRbap3Vqc1aq JIJweh4kCCL6xCTlyLkyx1 X8wXNfNYSvzQJaPVVqDE7m oQCfWJFekT2gcootVMCaRb YiqdbeGKEpiDzekgZoBx2n mMqjRZA2XKxaP0kzvZ6nQh J1ZEeaI1xjkD0ySVw4RIfy EZOmlLN8mwV4EYJycZOmJ3 NtbD1kYTAiBK4rvfb3x5ey OKP3DOvkCOVbJoI5ziQ5TB GpdQOgRFTusQzqPZwuu296 ZPG2QsXmHJYqu3ZjT3PxsB xwD96gvHuxZ71oASTmtNqm xX6ghTtbhU7yMqWwZtYfMB mpoBdfPH8vRLAdE6hqzJGc RQQqMBWcY1vmKgKadY5yoE orRUyzlqZyIKQwRft8XPAc rOGrWZJnFhl5VMDiKZGoR5 2isijbXZU5vZ7re7fce6Zk HWbgIUU4EOKyn59zNVeyhi W4GJdvBw6rOYXnXbk9K1ke YXJ9fQ== CPT Code(s) (test code k3zvvGItWIUfzYI2LdCfZA = 3357) Irl5why9ZmvEMukHItPAmx hWPlmuExwg35yLS8fO96JL 6xHSKhIkR6LRKhyjU4Ufu0 QXChUQEjxTJeK025z1cco0 kbmcTlyZT3uKtpSJUfHZUc YWluXGZzMjAgODgzMDUsID l9DzOnEAWsbi3= CLINICAL HISTORY (test p8dckEAlLJCeqXQ5JdYoFO code = 3356) Mib6ubk6WppWYykBQwGXci tNXxqnFxgj15sLH8pA82MS 8dBEDpVuQ8BYMwwiL7Ift7 IOIcWDGfqLJfR766u7tot5 lopxSpjCW4fAbgSWQpZXEv PSfmIDRlXkCrZtsdpVH4SN ReK7YhCKKhqEyeYJ41nZXA LiBweWxvcmlccGFyfQ== SPECIMEN SOURCE (test n4pkiWJmNSQkwKC3NjVgKR code = 3377) Pmt5dxj3JyyIHoqOQlTUbf zWEfwhGptl79xOR1dY84YB 6eXPRiLsH0FQTslrP3Sah5 NFWrCZApcAItD466u3gex7 lopmTjmUO7nTjnLGNdPPBx UKelZGYsMqMnV7LfiHZsI6 xwYXJ9 GROSS DESCRIPTION (test b1ipjSKlOHOqfDV2EfIfCQ code = 3366) Sii5htn9XvjCQhcQHdTIcf jZYrwbBhrv83cOH5pQ79HQ 2hMDErPrN8CWCsqvQ9Whe0 KMWhROWtwQWnN035r7hfb7 vutxFgzZV3kAnlNKBzQYPr GSqzNMQpKyKiS5KrS8pnNA 4gQSBpcyByZWNlaXZlZCBp peLbj8MvDXdcnuGiBPNlcZ ikOTE1rTIeIVUeJWZaYCYc WA14RVimINUifkTqCPhjjI VkaWNhbCByZWNvcmQgbnVt TnGzUKNhREQyNDFyo2DiaZ ggQ9KseQRjLfNbZA0gEGGc guGtt7DdVO7vOIGshAHgVP KbcndasVImDEq1aIJxHGVj VwClwCoug6UfCIAfLJsqCT 76ofUjZN8cJOArIVmbYCgi BXJ4BBX0SLDixIRmq9yvvc biWYNiOFAjjUEhyH8obfJl udLjlUTomIY2GQFaiD2hnC 61bdEladCUAF0xvGGbLMNn cmRccGFyfQ== MICROSCOPIC DESCRIPTION n3moqZDxWVTshVN5VkGyTB (test code = 3371) Lrh7una6SfdENlfCCuCTvr qQZxfaDdfj37gUV5qQ38DF 1rFCCsWkC3MBHqghJ0Gku0 GTAwDQRnnPHbB202j1crt0 dvrlAdaUA5pLrlIXPwLFBw LCgsBYIjKvEnHEHHCb0PFV VELiBccGFyfQ== SPECIAL STUDIES (test g9qldRLlFCSldSC6JpPtYL code = 3376) Yzw2vip9ThaJUhqCLtCVcf nYYawuShwh23rTX2lE39HO 9yESYfCuE5JELzzlO2Ewx4 PAAqEGWgxOIgV110BYJnZI QgoIifupi2kY46VOVmrX5u iXPgAZe7ALBoozZtrUpvsK 7rSwGqZaGpXhJGnELerQ57 OBJbbhC5DGQjf01hj9AfkL mqdnKhMQXcNQlsU8j3VKDr YGJbEMW3w9Gas0UtjR1sgZ 8vqMplfW9muZOcrEC9qzjz m6Spy1EcN4cthAZzdDEcrp LdGWBwbjSLCF3HKbTDNY9y R7ORJYfOWmAOYTGBUqpxrP EaSTPilmDda4tyM8mpUSSx GQH0DW3olxHgYvNfJI7taK 27c5Wqp69bl78hmU2dyYZx wuBpH55xmKEtfZRom5HkCR EapqNnrMP0DCXmRMiaesoy s3b6kBU6lCKorEDebRP8nT DqvUCbOVHHzDOdXTJcx356 pi8yNJNuxFFlpfQdxF4iFT spfwxejURjIA0eIALqMZMp FVXbTK84rzNrYI4aoXPff5 kploNvfGFvg6FoaRH7SIYa tVXmpljrQe6mTP45XJEySP mokC2dzDWotiLkXA3jZO2q B9Z5hJVjJRNlmkShd3dkUH dxTW8sJVOgpCurDplqKUIj URXocrEaxVP6TAKltXWxYE NmuBFzRBfeiWOca9rsi4Sn P0wcfFsqxJC2JOEiY1hdrB PajOH5XIJ1gX2cDAuwfxDw ORKuv2TnUIPdDOUlNmP6xE 1sDYS2KdCZlHnyEEA6DoE1 FWbvHNOwHT0yVIeiJEjzC0 TdqULyTDUYPZDem5laR9ct RMVkz7IkuZ6olIG8jFVmYI CujGL6QVGqTRM1HHmepJCj HHPjLWSgkBXkvFNvFa1mgA NcS3OjN3ntlgBlsXPzsHO2 aZPzXDumcrGpRCA3BWVboZ 1iEE5gVYHwjJYdQS0fmGEm IKItZYAdFZXbBZTbj7CkJS Zgif62SZPwSlgdjFeaEDQw Lv3yNc6uAMHujlPkMPN0Wr OGZW6hzfkkzSUevOjycp9l SCjjABGKLBVtOBKdMER8VQ HaoT5sPMX7dZH6LOO4N6mf Y2qoKNOwrgRdGO5vZDLhhC PfgcFgTEuxXS1qeQIoKGVb o8LivhyaTQPyBDO1HQY7SE koUPErXUFrIo7kFNBxxP3n O1CtKZN0ygJol4LdZzLYjN DfkZ74fXEmut22BUZhYOKg W1ObKUQbKFIhSZofvoTwyY mfCVAkl01hyKUfwfAve7Pm esJnNQPfI2ouAQTujGSzoG Lmn3KkwK4ioJWtraGjHAZ7 zZIvNMSetP2gRMWxjGaeUT IqlR2bL5NnATouOe3xQCEl yrrdZE6ycr74PR1yqhKkFM 0lpgAbGK79jtSqUwLtZXt6 NVqLHRvXHXe4EDJptqGhwW XtfGCtYIRpuJ4iqPMyHp5c bSBoaWdoIGNvbXBsZXhpdH djA9hwulmsUSxlyAYqc9My mE6rvLS9ZHD7rL2cEahpSN J9 Gross assessment was [facility] performed at ([facility], = 2777) Department of Pathology, [address] [place] [address], Technical component was [facility] performed at ([facility], = 2778) Department of Pathology, [address] [place], [place] [id number], Professional component [facility] was performed at ([facility], code = 2779) Department of Pathology, [address] [place] [address], [facility] [id number] 16:32:00 Test Item Value Reference Range Interpretation Comments Case Report (test code Surgical Pathology = 104) Report Case: [id number] Authorizing Provider: Ramiro Up MD Collected: 07/17/2020 02:49 PM Ordering Location: [address] Received: 07/18/2020 08:32 AM Service Pathologist: Khadar Davis MD Specimen: Biopsy, Gastric, spybx ulcer r/o h.pylori DIAGNOSIS (test code = [id number]) FuZzEwMzNcZnRuYmpcdWMx IHtccnRmMVxlcGljOTIwMl cdtdXhFESgbSLdX0Gortto LKhgYT5nXB4txShxvRQptB OpSDImLvFza6llm468rLFi n8voPJQIsvcxhPg7gPnuY4 0cu0O1UlocH50nqUWkRDqo bGFpblxmczIwIFBBUlQgQS XABSGKNoxFJFUQM7ANNJKA R4WdR3KGXNBWEQBRASNTD3 ISFdscNJPuJy3FF7JSX4eN WYVuAqBRV9VKXmXsY6HNFB JPUEFUSFkuXHBhciBORUdB OCuMMWYTY2VbXA9IJDXHOR 0JXNQRUKNUHCmXF6vIJUAW OMQWRXQEFXXgNM7ARLzUNf GSNWBCIJMMJoFNYq8WHE0n cGOiCGrBLuMEYB2iL7GIJm JZIFNUQUlOIEZPUiBIRUxJ W57XCKUQFBRgMZCzXrSJYC LJDbUhKYflKCF8j1ljaZDy XHNzdGUxODAwMFxhbnNpXG CsKusfcepxEQBxHRR7dvYv PPPjABvkKFLqFGosCq7guF IycGjkEsFpCLXrm1aeiqCD llwltRx0d3fiFBKpLcM0eV IpCBwfH5qksyYkvDGiRETq GFs7aJ97YYLceB1ibOWkJT tugcBkIyQ6GHhuOINkSxK1 NIQlxRBqIBKdW3rxHLCyQC mrWXSxNIzopYVgRJQ0rFto a5B8sUZkmAWbzMpdPaTdCr XeDiGMb4CrVFu2tVdoE9Lj GGUfTcM2qQPxECJiPGxbVN ZvOGEfarD0pF39XIzmtcT7 bYAzu5Zbb28vs864yN2bdU FmIBO4QRXeRAQegLYlAXJo OPR1WXAqbGRoO0vuPQXxSM 1unimtNVniGLmaVVXudQP3 RVIbiBJrQ3BiHBMbORalOT Qwjcs8ZaBsHw1mrNVuaXth NGnoq2ghz2zwaNYjXru9GS PiTxCrQckxMFtwd2Zog4ii BCAibn8rUBE1jREreAqhk8 M2gOQvQMJwfADeEEHiSP9w tNVoJZGisL3xlxmwCLTpBf AohvnzKOOfkWjsmzEcCf1i pKdaLZX5SQukX3bmrB1rLb P9WIhsI9sodX3yMZx3MZss ZQZdcBQ6hqF6TJMufURgJ1 EagF7lJCMcIR1dtfh6d6rn UXW2FYmtHLXeJyS5pvM1LJ WyyLLeJDOvaEdjEFfyl980 SIX4YfPiZYTth7VcL8KxcW ksD66mxHywE11fSKTqnYbf lS9heUiowA9kBrSzOxCnFL fotSltQU3qPLEkP8nzpDSk CHMcGGCvL7bhJuUvhM2hjP yyAVnkizRvZOQfZqc3NRSz yMHhZEPrZka6WHZqGBJjH8 7wlfcjFSW8nX7ex7gnf0Oa MRsaEFE3LFJnq58oGAdjqi O4QGwnSr4jTHGeQjl5P0dx YXJ9fQ== CPT Code(s) (test code l6zfbKWsSLXwsLA4NaBwJP = 3357) Oaz8lzc8MqeJNzbACzYCdj cZCnynRmzv07zOR6sZ44YS 0wNSOpGgX0JFDhrqA7Sxo4 GNYkBSLdmJRwL283v6cgh3 ivcxNbvEK6uFipEYKhGOWy YWluXGZzMjAgODgzMDUsID w5WrMbOTJcct7= CLINICAL HISTORY (test m0vysHCtVEKgpPZ7KoTrCV code = 3356) Kfo6mwv2IaaBJevYVaVMhj fVVsizQghs70bZN8uI37EA 1vRBIzKhN6KUJjnaE7Amm3 VRPiCGBztZUjM757d0qvt6 rfdxJluTD5cYbtSBDgIYVg UFnfHMWyMyAcSfiysFZ4ZN XfC5JcBYXshVoqWI47xVUZ LiBweWxvcmlccGFyfQ== SPECIMEN SOURCE (test t8phtBQaANEacIG4EfEvQH code = 3377) Kan2xdj8MwsBWiiGPoFLnq sVSajoFfhr51gOL0oI44IT 0aMMVmZeP1RJInfpT8Frt5 LRBeTNPjaXYaM061i6tpz1 lavtQpcXI7mSdaNFPrRWDg WOcaNPNdRsOxW8AkgYNsQ2 xwYXJ9 GROSS DESCRIPTION (test e1kwxELtTREjrBC5ApJdRW code = 3366) Zan6qpt6UiqBGekJDqQXzr bWVuneIszc73qCE7qB84XQ 1aRDZqCwS2LVBkpzN5Rxf8 OTQbRDZowYWtH668t8bzs8 lhowPssGF5aKknEHQqCCSv KQfyBNQnBcOlX0TgT5caYX 4gQSBpcyByZWNlaXZlZCBp vkVym5ThDMvdriQdNQXmuE jlJOQ2qCGeYQKfBYVuQVCm VB95KFnvRDRbhjGyNVwpdW VkaWNhbCByZWNvcmQgbnVt OwHfEQAuOJMlBGKfi2KjhZ saT4ZhuIVnWsRyZH5bMXFg viIgb5ZkEK8qSOTdfJSiEO WhisiynZMhYAa2kGVnOSBm MyHjjBvye0MtDQTxFGlgGC 90czXqOE0gKNKjAFubFEnp SQL0AEG1QQQqcBRsn0clla dhDECsORGeuVGtnT4lrqLb exWswXOizEE2HSOisF7utQ 21vdStldAYQL1qsQWzPDTc cmRccGFyfQ== MICROSCOPIC DESCRIPTION d0xshZTbUJQpbIX2BzLgOC (test code = 3371) Kub9fcv5ZgjAZhxGIfKKoe bPFqldIavq09oFM4gC66UM 6fCRDbDcB1TIDipcB2Vkv8 PLPoSDCadWAjL896t8oiu2 bpnzBtbXF1fHsdRGFfZRXt VCqeTWPuCdCgRHVGSy1OSJ VELiBccGFyfQ== SPECIAL STUDIES (test d6dcpBFzKXBxvVI5UpRwDK code = 3376) Bcl8bjx7OjxDVqaXZjVVzt fQBitiBwpx31cHX6dN38MU 0fCIClMxK8ERCvnoP2Pnf2 CMXfNPDidQRwN444NGRfAL RskZzvdno3gR86MQRvkB0g yGGeJXu7HRDbyyQlbFxlgI 8kXeAoOsIaPqETeDRdlB93 KDHtulS8ETUgi02qi6SjqI meopAdEDStAZdyO1c2VIJq UNCzAXH2d6Oil6HcxK2jqY 8vxBypjG4viOXymOV5feol n0Bcy9DiI4euyZPmrRRxrx JxRRXlgkZWQY6ASoCPNE4s E4HDIKjSMwJIWDIHFwjgbT SdZRNtvyFle0jmT7byPHXy TLB0HY9psaIxPmMtOO9ktN 03z7Mbp29vg04nfW4nmNVc rqIqG14wzDCfhCQee1DtYC TeewGztAO1WZTiBDrzdbej w1g7iSM4zAZzqKOmnTF3vD OsrTUhOLCRkGPbZKTwx951 rn7qGYTwbWNclnKanN0fAO pfgtwecYRhBA7mOZLtNXNv SBOeTB26aoCdYD8fxZOpj3 qwaoJjlUWad8KzlWA2MXEj xCMagujaGc4vQR25CJEzEH itnE2mmNUsrkLxCP2aNH4s P1I7jKMyHHMvxjLff0erOR czXQ9fTYBqmUihUwkfKCJr LDBvnkRtoYN5KPZpiYLvXT YgnDOxGIltsWPwb1ehv8Cl A7sxeLjuyJU5MGXqB2ijgZ GxnTN2AVX1eP3cTQjrlqOj TMUej1MwEFGeMNMfWwK1gU 3dLVZ0IrUUgEsqQEX0XlN0 XQnrYHIuWT6zUXimSHqhL7 XotRNcHWYXDJOmj7wdG6uq MQEfz2ApxE7obYE3tKVfVV SmvWA5IFXqFFH4WHmkiSCu WONhITIijZJibHNfHo7ttL AhQ4SeY7onkpTmfYNcaVN5 gUWuVRcyfsWzANU9BRYqxF 9rWD4wSMHwyJAzRV3laNFz JDLdHXPuIYNpLHPhl7RbDH Osca63VJSbHnbegLhqZLEm Xk4eMo5iMAKlcdGvDKA6Nq PFOG1fqpyscCCzcZcvxk6i EDbjPNARWDIyPWBmSQM9GM GemM7sQIX0cUI1GET3V6rr X5jpYYDcezNxJG9wBPKztG VgpiDhZPbaXC5ztMGwWFSq t1JcqxizYJPzTBL4IUS0MH ayGZZkIZNnZh3cPEKmwF9d D9RkLLY1dfQsm3UpLkOSiJ JktN84dWXqty12NICeWGIx H8FySRRqLBHyOSesuyZrkH aiSEZdh72qlQZmfsYiz4Zv paCzZZIbF9veTCLwnDLcnP Rxi3GsmJ0abQMdumNcOCK6 gEYdLRVdeE1eFILfdAjsTS XvfR1rF5AdPNtwHi9jJHOd xbzfQE5bug04NM7ljgTvWD 7zmkVcYJ75coQkZtJoKAu1 MBlEKFeNBJy8OUZdfbSviR NudFNhKOXwbL6qfVVhUk1k bSBoaWdoIGNvbXBsZXhpdH lgV3plrocaXDvteIKpk2Wo rQ8rtBU7CTI7bW7bHamqHB J9 Gross assessment was [facility] performed at ([facility], = 2777) Department of Pathology, [address] [place] [address], Technical component was [facility] performed at ([facility], = 2558) Department of Pathology, [address] [place] [id number], Professional component [facility] was performed at ([facility], code = 2779) Department of Pathology, [address] [place] [id number], [facility] [id number] 16:32:00 Test Item Value Reference Range Interpretation Comments Case Report (test code Surgical Pathology = 104) Report Case: [id number] Authorizing Provider: Ramiro Up MD Collected: 07/17/2020 02:49 PM Ordering Location: [address] Received: 07/18/2020 08:32 AM Service Pathologist: Khadar Davis MD Specimen: Biopsy, Gastric, spybx ulcer r/o h.pylori DIAGNOSIS (test code = [id number] 3220) FuZzEwMzNcZnRuYmpcdWMx IHtccnRmMVxlcGljOTIwMl agknOrSUSufPWrO2Vqbdkz ZQvdMG2bUX9zbEizdAAciI JoEGMiZcWas8eqf515xYSx l4fcRLKJrvifhPu8wTdvL3 3yp1P5AvguR29pyKLsKJsx bGFpblxmczIwIFBBUlQgQS RPODZMKfcSWEOFY5ABRZNI N9TgT9CZAPNTPBQBULPPH5 YXRfhkAOAeIr7YE4XLJ8oG NMXtBpYDQ1ENHfBjE3SHSS JPUEFUSFkuXHBhciBORUdB KHlNQGHRE5IeFG3OOZIPAV 8TBYSHLUXWDYkBZ7cYDTUU BWOUCYSBREGoHO0APIzUUi WQZVYDBAVIQwZASd2MOT6h wKAqUYdPFbUCFB9sF3AXFo JZIFNUQUlOIEZPUiBIRUxJ X88GTBGXWNVyFFFxHqNFCD TEVuYeNOweDJN5f1lppALh XHNzdGUxODAwMFxhbnNpXG HnKedcbslnTRMjMCG0yaFd UAEjNFvrMEWmWZpbMh9jbH RsiIfoMmOgRBWzb0tlimMR lbjmjZp6b1reRNXoCqV9qD KlJMdkX6hoflNyeOUoJONk ASe9eP36NJGwwI4gyTZwFW shusOeMxS2VMxkFJLsIxK5 MGIirSLrIWDgX8qfNZFhWU qvLJNsQMqlwOJeGSM9nBpt a6S7iEMijGUjjFvqOjVoOy IoEuMXy7LhUTy2uSpsB5Px XKStYtH7gZEjCLIfLDayZT CaXDKrfgM4lO13XIpipaQ2 qZElf5Exe68nr504aC9jsY XaDEI9WUTnZETuwHEqMCNz JQP4POHizIPbK7wsZTZuQX 4fbylrYIrsRKqjHYEgkFR4 NYNccKOhB3BdOLVjGKgiTF Buetk3EaCsTk7tkJKdrBbi UDbst2vkw7tbbOCqBaq4FF EoOhRrQvygYEroa0Mxb7bo YTAtye9tJUR5dZUkyIxnq4 A2dBYnNLSfhZFiZEYkSP5q fYBiCDDpnG2ivroxQFNrLi JmirrgKKHpkUswucVfYm5u kIpnYZX7BPscG0xyoJ2wUn X4ETjeM7jrtS8dXHz4LQpo NEMygSH7ueB9ONQbhCUzQ3 JkuV1lXRNrCK0ovek9d6vs ACO6ELkeBRQqEwS2drW3BV MkkFXjLDQqjLvzVHpvb199 PTD4GiPaGKSxc7BsW5HpbI jjE97qyEevC70lFHDycZms aT1faKddyR6lWdVdFwRoUT bfzTjzCV5ePFSgM2trsUVg XHSdXXLnG3bvEvLyhD1piD xtYJlkqzJyZVReYro4YFMo nSUnMINlKdy7CTUkOJIrE3 7ubizlHGN1oL4wj2miq6Ez DKqxXEJ1CDRgt05ePIivet R9SWsbQd2bDDBsXrc9F4ua YXJ9fQ== CPT Code(s) (test code x5fnzHZqYJDrgYC0ByBfZB = 3357) Ynh8opk7EqsZOtjYGlMUev nYDzokMgci46fCQ2iB98JI 5zMGGbMlV3YRGlfhJ0Yqc7 QEWcEPQkqQMxA192x9egu9 wskfRnuYX6yYqaXPWqGIBy YWluXGZzMjAgODgzMDUsID l9NxIhJXWvtk9= CLINICAL HISTORY (test j8ipuLObGGRqoLE2MxXaAE code = 3356) Lpp2ctx9YjwVCdpVJzXFov jSRvpmFjqm50dTW1yS33OE 1bWRNkOmY6IHZnmaE8Muu7 GFCoJRMuzADvZ235e1pdr7 oojgNmrEJ3wZyqCLHdKUPg LLlfWBGhBlNdSyazlJJ4AO KfH3FaYMDkgMyoDY97jQYL LiBweWxvcmlccGFyfQ== SPECIMEN SOURCE (test p7iovHEeHUEkrMI1RbCeJB code = 3377) Wwd0rhf4RogIFrtHUwWFnb tTWdpvFqkc36uGI3eH94YV 1sQJUfImX1MVKcjrB9Mgh1 SUHkXCKpmKWvT699l7xll3 apxdPgjJS3vGaqHRXjSUFu ROlyNKQbJuDoR1TgnWZqK9 xwYXJ9 GROSS DESCRIPTION (test y1fnjKKtKEZsqPJ6TvApVN code = 3366) Lyr0naf6KrgLYkjGQbGNld vNVuewIfcx43yOY4hB76BY 1tWDCaRzU4BPMrgcH3Pip6 OKGmSZQjyRJaR808r3xnl0 aqwyNuzKW6vHbdPMLeDPXw CFnmJZQfQiUrF5GxP1tiYX 4gQSBpcyByZWNlaXZlZCBp mxIko9YdQTknyxVzPJRidZ frZTW4xCKoSTPwFRZuJRJz OK44UWzpBCWrbeJzTEmgdT VkaWNhbCByZWNvcmQgbnVt YoDnYLXdPDZyXEWid4QuwG lhS4XrmBApIhRpNR7cTYLg caYus1MwYE8pGWKogOBnVU VuodxaaYDsEUb5fRGpQWIj KrTlcZaxa0SiYUAgLDjnBE 90htYgVC2fFUCpRFuhIRru VEB0VUY3IPHmwIUkt9hrzt qwMUSmTNJgpCLmyR3bagOy uiZvlEGeoGP0SMJatU4adG 77veZwqrTWKR5mdGEwGWNy cmRccGFyfQ== MICROSCOPIC DESCRIPTION p7wccZTeEPCrgIA8TtTlGG (test code = 3371) Dtu4daq3NmoAZyeILdSHfe qSKmdlCdfs29mUF6aX02IC 5lVVZtMfH3TTFzanQ4Zeo8 SNIlLOSttIGmU482o6qho8 grmcAnuLQ8uTonNCPaZAZs FJkoFJUuDyPiVMRRFs8FNJ VELiBccGFyfQ== SPECIAL STUDIES (test t7htxSUcXTDpgSF5XtCzYC code = 3376) Bjj8ncx7EmnLMpeDMzTZrh tPDntjUjkq49sBS0qV11OD 2oBERgFyA2VHRzfkO8Hkw2 TJBdRGJycSGlU013TLBcSX CqhPewvtg1pM24HRYbjY9f nVTwQSb7KHPycyJorEhodZ 9rNyPkMgLfMmJZiZGyxH99 XNGbeiX8WDVan03kn9OemI ukgnGeZPOiJYohR9m5TGJp KYBaEJE6l1Wyl8JtjJ2amF 8lmZnycK9ccUUedOR0prnz j4Sgz5EjD7ygtARwxINssx BdUTIhfnYWGF3IYnZQNT9a L8CEXCbKEjRXXDJVFoltqM XmFXVlbsEza3ttD4irHTGd EYM6TE6qizIeVeLrJJ0foN 76t3Prx44nc29ghQ7zwNGl jyNgO42ckAWocVQvz8NvVS CoedBegTG0JLDcMNfhgulm f9y6eGP6lDLinBMxuTF1bH TuvEFcIIHJmWLnYULkz590 pz1rEDKpuIHjvrQueT0zDF okpuecsTHjKI1tVMEgBWMf FJZkCD13myVtRC6kaPCct8 uduqOtsQMsu6SzmCN6SMIc dRRllnbcLn8dEF75JAJiPF wpqD3kmQAvoqNhJX1fAC7e U8T6jLGbMUFgkwBky8onBB ofKB8dIARvyHsxOeqpVMNz EEFzmnNnzID5VQPyeRSdKG LkkEVqGTxnmBTxj9wwt1Vp S6qmwSbndME2FIBrF1hhrX RwbPF8NRC9qG8qJLydzwUq YZRbo6VjNSXwJKFcRqX3zD 6qEUA3WpHUzJbePEZ0SuN8 BFklPXIkCL9jEZduEJpoT2 QtsQMzKFJQOXNuh6hdA0ux AAVfb5LrnZ0sdUH3cFYsSP UceZG9AFOnLTY6ABzpaHVh RKIfCOAmfMXnlDFqZg3uzZ DnT5BvX5eusbHkxSBdhSY8 fTRbWZzywuMdRMA7EAEllF 4lYC7jXBHkeMBoON3xgQNd OADrNMXkXZMoBPCji3RzQD Akin05REHvVsgyoXfnBMZr Im0xCc9fJOUqoaIlCNQ3Us KHPY1oadwlmZSnxEwzxb1b WBetJADEAXKyGRCdDZO8DY PgrP0zTDE5hTY4DMS6A0ye Z4vwWBWefqHsQF1uGLMdjF SgbaHyAPlyTX8cmSYmVXZp l8SlgszyKQDrDTB7XTT3VP wkMWLsUPPjNv2lTFTemH6f S3ArZUP0wqFfp4FcImOPpC LwoC32zRXhua83LZDdNLQq G2ZpXGQcOGYbUJactyVxdH vxEXLih34eiCPpihNxk9Qd vgTjMTGoC2gaXLPonMAkgC Bbi3QowI0qlCRczxLrKSV0 tOLxQDXeyZ6nBYSdjPseOL GkrN2sM4HrHNjsGw0uLOSs igqcRR4ivg93TK6yofNkMZ 6nnoPiTJ60fsZgLeVrUMp1 DXsCGYzAJPx7KHSgbpUxgA DxxYUsNEHrdJ3bvKExHw6l bSBoaWdoIGNvbXBsZXhpdH hfT9ymufreLWrkgDUjk4Oe mS0kbGT2CEG2yP1yCsdyBB J9 Gross assessment was [facility] performed at ([facility], = 2777) Department of Pathology, [address] [place] [address], Technical component was [facility] performed at ([facility], = 2778) Department of Pathology, [address] [place], [place] [id number], Professional component [facility] was performed at ([facility], code = 2779) Department of Pathology, [address] [place] [address], [facility] [id number] 16:32:00 Test Item Value Reference Range Interpretation Comments Case Report (test code Surgical Pathology = 104) Report Case: [id number] Authorizing Provider: Ramiro Up MD Collected: 07/17/2020 02:49 PM Ordering Location: [address] Received: 07/18/2020 08:32 AM Service Pathologist: Khadar Davis MD Specimen: Biopsy, Gastric, spybx ulcer r/o h.pylori DIAGNOSIS (test code = [id number] 3220) FuZzEwMzNcZnRuYmpcdWMx IHtccnRmMVxlcGljOTIwMl isqiYeOUKggLOuL0Vkgrxc FItbBZ5cTD2hwRtneOKkpD DrOXOjGrYnv8niw810wLCc u9xuRZFQtgpaiLy6zPnwK4 9ow0V4KnwuC60xqURuSGoo bGFpblxmczIwIFBBUlQgQS EOLUENLazQNQEQK5DXOQNZ H5AkD2CKLLSMKJIHBRGCB2 ZIFnugCIWwCd5YJ8LVD1xU ZCBxGnEEL6TYJuXmQ5HFKE JPUEFUSFkuXHBhciBORUdB LInZARGQH1FkWD8SUMXKUB 6PXYTAATFWHIuWT6lVGEWT JXNJUPIIVWZnAQ8VIHbMDa DECQJKOZZGIeQRKp0HYN5c dALwUDrQSoKVAA3wP2VRYt JZIFNUQUlOIEZPUiBIRUxJ Q53QDUCJPYRgCKFaCxNWZF OGJbTwBJugUUO9a1lutJTc XHNzdGUxODAwMFxhbnNpXG LyTblooltaTOSyORK3pmLb GBTuURyvIKNjBZtqVc7uqT ZtzMpuHzIgAXVoh3quqlME detisEt4h2oxDGImCbL9zI VkJPdzI2yjckRgfNMsLYUo QPv3pY69XLGupY2wzXToHS qbzoWyWcE2XZquHKYsSjU0 XJEmwSXfKABjW5llIZKhFN ffGTMsCKfqsSPmOPP3aMxk a6M4gGGbuCHhwMzcJoRqPj EfEiQAi4UfAZu1cFgcF6Dq SKTmYbF0fORwQKBsFHcdXL PmQYKpkvE6bB21JIvgcpH9 nVPhq6Ttd45cv153dR7evA FmVUN4QZJgFZFxiJJkDGQv KBV3RALwtGVvO9fwTRBrKQ 8huuoiRQbpKRcuKNAbzSS4 BQYypKHxF4GkKRMlYCvnSL Iansp6UaFqLz9esNShyTwi VZbqc6hwo3giyQLpPox4UU HxDqAaSlebAJeej9Qla6dw YMXmaz6cWPV4iXFtsCjwz8 C1gEEiXFDrmOLnUYFpRC0t oGSqSBNhxK0yyddyHSNcOg CgzixeTWSfdVxnncFkMl0j jRevXAX6STueO8abuV1zGo L3YOziF9tjrZ7kVAq7MOwp MBVewQU2luM4PHTjfUQoE5 OalG6oJJGfWK0mbvj7b1ft WQZ1FGqlFCBbKrF9hrA0LC RtvSBkLPBjoWosQSkkn144 AGC0PaTpDECys2VsB1YwjX suH80wkLawE00lPGNwsAnh xS6qzZpsfN1kSxOsNgErKY jwrYlcCH8aCOVuP3yydRBu GFCzEKWtZ5pyNmRceS0viD rrKZkiiwVoRZApPfs1KCOp nLGkXODyCak3WSAkPLDsD5 1yizduFXC2qL8iu6bte7Mt NYgxSPZ7AUIey91cKWxafj M8FXfyJq5eQHWsQto0T4br YXJ9fQ== CPT Code(s) (test code s8oabOAnZTOsbKQ6DxLhEF = 3357) Ujb2wlt8XddHIfnMZqVWdk wTFzxqNiqm63lGG8pI55EC 2rHMWmOhU5XUTyajT6Xer6 QXQqPEEszODuX187p4snh0 mliyUsuVC9fIleHXJeLVKu YWluXGZzMjAgODgzMDUsID t3AfNjOXFjtx1= CLINICAL HISTORY (test d0bobBBjTLWvaLC3BcBfEU code = 3356) Jje2sna3ZlaVNgoXJkTJke uWGrkoIcln33kZK3kS00FM 9iGAZwUzP8HZXfqaU1Teq1 SPGwRBDrbYWyW960k9fla8 hbwoUjfDZ2lUajVQGtOHXo CUdlYEAzAkSoVokpuGC7QC VdE9FnHYQsrWhfYX76sJLT LiBweWxvcmlccGFyfQ== SPECIMEN SOURCE (test f3bjhEKiAOWqoLS0TlGcJT code = 3377) Nmz2dve6HviFIfnCQkGJqc mLLjjeKcxm06lJC9aF16TO 6dYAWeRyC7PBFbwsQ1Qfd3 WPPxMVNaxJCiO087l5cqt5 hutzPerSO0sRobWZHhJHSh ZHzpOQGnVqMnQ4RucJXrT3 xwYXJ9 GROSS DESCRIPTION (test m6mhpDZjTWSqxYV5BhDzCR code = 3366) Rcw9dod6EdsDEznGBuFRhz iVUeqsTjar03qZZ6qP59TV 7iQHYoHiP1DNCjitT5Ouf9 RFTnTHNxoRBxH734n1cak7 schjXxnWY3vHcmWJHiLLFl XHtcXSTiYaJhY7XnH8ngYQ 4gQSBpcyByZWNlaXZlZCBp xgVod3YwTYlseiVpXDKdwX jdSEZ0eWRrGIAsYTTxFIRh KJ83HKqyYEEbqhCtXIvhmJ VkaWNhbCByZWNvcmQgbnVt FvCqPGHoOCVuABWdo5TtfS vbQ4ExjFOkYaDhKG7eYVFf grAfj4PlVD6bTZTngHHsRD ArhpoxnRJyPRn7kVBdQJAx DpCrsUzlq9FzAWSgGFspSK 49vrKzJC5jYHCiHSyuCWrg EYQ8FBM0OFFymODzp3jhql mzBVGlSGKsgRHrvO8bqeTr ptAcwUUpbEK4LHViwQ4wxW 81qwBsncOUJA3tvIEmNTDl cmRccGFyfQ== MICROSCOPIC DESCRIPTION y4wmsKMkXDZcyRW7CiKlRS (test code = 3371) Pnj2yfc3JorONvhQTbVNxe sHBgpnLgnz46dDT7iX38ZY 8hWEXfLaY1HTWdrxL7Kkz2 ZUMcQEOprEWbG016j1etf9 utjmIiuRM5nStzUENhPNPb EYrzIHGjQoTdDBSUXd1KPM VELiBccGFyfQ== SPECIAL STUDIES (test h1ezcZNmPFDbiHA2VxEsWZ code = 3376) Omz6hzb3WadOYaxEDnJXfm bFRpxmDwjo02pSK8yK21QK 8jORMjItC7KKOstfC2Ohf9 QYGwRUTxcLByS918HKRqZJ WwvSadhdz4vI19MGJgrO8y oKZwRTm2KLZrawSopJlvuW 7xLuCiLqJlZkTBiKDruH38 ZVKyhqC4KVShw17lr7ZvwK mrucTyRDMyMMgbZ9r9IVIw AUUzLNL4y0Ubj4IycO0pwO 5cuLiymK4cdZBwsLW6yrkz a2Xfo3TjQ0cmtXApwRRrqk XzVOEzhhFOOU9FDoKYRB0w Q5MUNYiKVfVWWQASEsqciJ NmJECouvCpq5rmJ6bsWGEg XAZ4DA9fcwNlRfHaIK0jgL 39l2Pwa14nm91omC8joOUy bgWjI50dwYGerZQdm7KuYF QokqDsiZJ9FPKrUZgdedci v5y3oBD6xCOzxUOpkON5wQ TewEYlFULAzMMpUOPzh715 wm7sMEXbkTBscbQnuI2zPY orzllhmHQuAD3xQQJlYPLi BZXeIF60ewLlUB3rlQFoi7 sitbAaoFAzs4PihNJ1AHQc wPDohdhxBv5rWI11QUNiBZ rlmV7rtQWqipRiJT1nVH9r G1X8cHBsMPPeleNiv2utRX umDL2lQLKlhEbcDfkzFCYp BBFuhgCagVS3DKEczHWfZM ZpmVRhKXtusUYvv0wtb2Cx N1ovqReifAK3LZXfY5npkB MsiRM4EEE0wR6bGKcfkjGm FWJmm2LhAPQkNVRsQzN3bA 0yNUJ2QpSKwEucBDA1KyE2 LCquSSJfKU8bEUrtLFhoR1 PxpCOaPGFFQBFdc2ogV2vl GUJor3LsqQ1xcRC7hGKkUO FigNR0KGHyQVV1VXkqtRBg ODMvMBHsyTGshIZaPu7inM VmE7QcR9ontkUuoNFinNM5 uEFuPKoeuhBlBIZ2OWTtrK 7iIM3lLAHpsABfHR0aePHw DKLtVKFfQCRlETBcx0PoJI Kedw03DGCoRlcatNwyJRSy Ya6lEg8bAQNgqtUsCBX2Wa FRVV3pkkcqnZVuxPkrvp3n WBysIYNJOQMrBJCxUVI4UM DqbX8xIMR6wAB9EPA7Z6th A3muUNUaxcXsGY3dVIIbvT GjodAlZPfgWT1knFOuYVSh n9TfcxfcIZFgBTU3SRE2WT ynPFAyXVZxDf9lLIVtfM1j E0NsKJP1nyIik2ZlZgTWqG ZavJ91eYZchu38HBZhWMFa L4QuFSMzFBBsLOhhurYusR wrOUCbw86ovOVvquSfp0Rf vvEbMNOwU2vyOYJglSIecZ Tff2GbpK5mhHYganNiXYE9 hQUvWUCmqA8tYSFyaYflJL OnkL0xA1GmASiaFm6xBXRc xlneDZ1frz17HJ5rptHmQM 6rhwMfED97cqBbGoYfKSh9 VPaKWFjCNUg0TAJyjlTxlF EvsNKoLEMjxH0pkORyNy3f bSBoaWdoIGNvbXBsZXhpdH elQ4tqlcpaRCptjYKdu3Rr iE6ktML4ZLC9uC6uQdcySL J9 Gross assessment was [facility] performed at ([facility], = 2777) Department of Pathology, [address] [place] [address], Technical component was [facility] performed at ([facility], = 2778) Department of Pathology, [address] [place] [address], Professional component [facility]. ke's was performed at ([facility], code = 2779) Department of Pathology, [address] [place] [address], [facility] CampusTISSUE [id number] 16:32:00Surgical Pathology Report Case: [id number] Authorizing Provider: Ramiro Up MD Collected: 07/17/2020 02:49 PM Ordering Location: [address] Received: 07/18/2020 08:32 AM Service Pathologist: Khadar Davis MD Specimen: Biopsy, Gastric, spybx ulcer r/o h.pylori PART A GASTRIC BIOPSY FOR SUSPECTED ULCER:NONSPECIFIC REACTIVE GASTROPATHY.NEGATIVE FOR INTESTINAL METAPLASIA, DYSPLASIA, OR INVASIVE CARCINOMA.WARTHIN STARRY STAIN FOR HELICOBACTER IS NEGATIVE. Signing Pathologist Direct Phone Line: [phone] signed by Khadar Davis MD on 07/18/2020 at 4:32 [id number], [id number] ulcer, rule out H. pyloriGastricSpecimen A is received in formalin labelledwith the patient's name, medical record number and " biopsy, gastric" and consists of 3 perry-pink irre gular soft tissue fragments (0.2 cm in greatest dimension). The specimen is submitted in toto in A1.PERFORMED. The interpretation of this case included the use of immunohistochemistry or special stains.BLOCK A1- WARTHIN STARRYControl Slides Examined: In-house known positive controls were evaluated along with the test tissue. These control slides run alongside of the patients sample show appropriatestaining. Internal positive and negative controls when available are evaluated Immunohistochemistry technical testing was performed at [facility], Pathology Laboratory where it was developed and its performance characteristics were determined. It has not been cleared or approved by the U.S. Food and Drug Administration. The FDA has determined that such clearance or approval is not necessary. The test is used for clinical purposes. It should not be regarded as investigational orfor research. This laboratory is certified under the Clinical Laboratory Improvement Amendments of 1988 (CLIA-88) as qualified to perform high complexity clinical laboratory testing.[facility], Department of Pathology, [address] [place], [place] [id number], [facility], [facility] of [facility], [address] [place] [address], [facility], Department of Pathology, [address] [place] [address], [facility]ndgt Metabolic [id number] 04:41:00 Test Item Value Reference Range Interpretation Comments Sodium (test code = 140 meq/L 647-275 0251-2) Potassium (test code = 3.7 meq/L 3.5-5.1 2823-3) Chloride (test code = 105 meq/L 98-107 2075-0) CO2 (test code = 28 meq/L 22-29 8-9) BUN (test code = 18 mg/dL 7-21 3094-0) Creatinine (test code 0.82 mg/dL 0.57-1.25 = 2160-0) Glucose (test code = 107 mg/dL 70-105 H 2345-7) Calcium (test code = 8.2 mg/dL 8.4-10.2 L 22898-3) EGFR (test code = 92 mL/min/1.[place] [address]-9) NOT ACCURATE CREATININE CLEARANCE IN PREDICTING GLOMERULAR FILTRATION RATE . ESTIMATED GFR I S NOT APPLICABLE FOR DIALYSIS PATIENTS. GERARDO (test code = GERARDO) Attending Anesthesiologist ID - ELSA M Lab Interpretation Abnormal (test code = 01619-0) [facility] [place] [facility] [id number] 04:41:00 Test Item Value Reference Range Interpretation Comments Sodium (test code = 140 meq/L 205-265 2860-2) Potassium (test code = 3.7 meq/L 3.5-5.1 2823-3) Chloride (test code = 105 meq/L 98-107 2075-0) CO2 (test code = 28 meq/L 2027-) BUN (test code = 18 mg/dL 12-05 3094-0) Creatinine (test code 0.82 mg/dL 0.57-1.25 = 2160-0) Glucose (test code = 107 mg/dL 70-105 H 2345-7) Calcium (test code = 8.2 mg/dL 8.4-10.2 L 32494-0) EGFR (test code = 92 mL/min/1.[place] [address]-0) NOT ACCURATE CREATININE CLEARANCE IN PREDICTING GLOMERULAR FILTRATION RATE . ESTIMATED GFR I S NOT APPLICABLE FOR DIALYSIS PATIENTS. GERARDO (test code = GERARDO) Attending Anesthesiologist ID - ELSA M Lab Interpretation Abnormal (test code = 99507-0) [facility] [place] [facility] [id number] 04:41:00 Test Item Value Reference Range Interpretation Comments Sodium (test code = 140 meq/L 918-030 0438-2) Potassium (test code = 3.7 meq/L 3.5-5.1 2823-3) Chloride (test code = 105 meq/L 98-107 2075-0) CO2 (test code = 28 meq/L -2027-9) BUN (test code = 18 mg/dL 7-21 3094-0) Creatinine (test code 0.82 mg/dL 0.57-1.25 = 2160-0) Glucose (test code = 107 mg/dL 70-105 H 2345-7) Calcium (test code = 8.2 mg/dL 8.4-10.2 L 27047-3) EGFR (test code = 92 mL/min/1.[place] [address]-3) NOT ACCURATE CREATININE CLEARANCE IN PREDICTING GLOMERULAR FILTRATION RATE . ESTIMATED GFR I S NOT APPLICABLE FOR DIALYSIS PATIENTS. GERARDO (test code = GERARDO) Attending Anesthesiologist ID - ELSA M Lab Interpretation Abnormal (test code = 61115-5) [facility] [place] Metabolic [id number] 04:41:00 Test Item Value Reference Range Interpretation Comments Sodium (test code = 140 meq/L 330-738 8772-2) Potassium (test code = 3.7 meq/L 3.5-5.1 2823-3) Chloride (test code = 105 meq/L 98-107 5-0) CO2 (test code = 28 meq/L -2027-) BUN (test code = 18 mg/dL 7-21 3094-0) Creatinine (test code 0.82 mg/dL 0.57-1.25 = 2160-0) Glucose (test code = 107 mg/dL 70-105 H 2345-7) Calcium (test code = 8.2 mg/dL 8.4-10.2 L 30223-6) EGFR (test code = 92 mL/min/1.[place] [address]-1) NOT ACCURATE CREATININE CLEARANCE IN PREDICTING GLOMERULAR FILTRATION RATE . ESTIMATED GFR I S NOT APPLICABLE FOR DIALYSIS PATIENTS. GERARDO (test code = GERARDO) Attending Anesthesiologist ID - ELSA M Lab Interpretation Abnormal (test code = 16569-4) [facility] [place] Metabolic [id number] 04:41:00 Test Item Value Reference Range Interpretation Comments Sodium (test code = 140 meq/L 179-628 3610-2) Potassium (test code = 3.7 meq/L 3.5-5.1 2823-3) Chloride (test code = 105 meq/L 98-107 2075-0) CO2 (test code = 28 meq/L 22-29 2028-9) BUN (test code = 18 mg/dL 7-21 3094-0) Creatinine (test code 0.82 mg/dL 0.57-1.25 = 2160-0) Glucose (test code = 107 mg/dL 70-105 H 2345-7) Calcium (test code = 8.2 mg/dL 8.4-10.2 L 97201-5) EGFR (test code = 92 mL/min/1.[place] [address]-7) NOT ACCURATE CREATININE CLEARANCE IN PREDICTING GLOMERULAR FILTRATION RATE . ESTIMATED GFR I S NOT APPLICABLE FOR DIALYSIS PATIENTS. GERARDO (test code = GERARDO) Attending Anesthesiologist ID - ELSA M Lab Interpretation Abnormal (test code = 75522-0) [facility] METABOLIC [id number] 04:41:00 Test Item Value Reference Range Interpretation Comments SODIUM (BEAKER) 140 meq/L 136-145 (test code = 381) POTASSIUM (BEAKER) 3.7 meq/L 3.5-5.1 (test code = 379) CHLORIDE (BEAKER) 105 meq/L 98-107 (test code = 382) CO2 (BEAKER) (test 28 meq/L 22-29 code = 355) BLOOD UREA NITROGEN 18 mg/dL 7-21 (BEAKER) (test code = 354) CREATININE (BEAKER) 0.82 mg/dL 0.57-1.25 (test code = 358) GLUCOSE RANDOM 107 mg/dL 70-105 H (BEAKER) (test code = 652) CALCIUM (BEAKER) 8.2 mg/dL 8.4-10.2 L (test code = 697) EGFR (BEAKER) (test 92 mL/min/1.73 ESTIMA TY GFR IS code = 1092) sq m NOT ACCURATE CREATININE CLEARANCE IN PREDICTING GLOMERULAR FILTRATION RATE . ESTIMATED GFR I S NOT APPLICABLE FOR DIALYSIS PATIEN TS. Attending Anesthesiologist ID - ELSA MHemoglobin and [id number] 04:17:00 Test Item Value Reference Range Interpretation Comments Hemoglobin (test code 8.0 See_Comment L [Auto mated = 786-4) message] The system which generated this result transmit ty reference range : 13.7 - 17.5 GM/ DL. The reference range was not u sed to interpret th is result as normal/abnormal . Hematocrit (test code 23.7 % 40.1-51.0 L = 4544-3) GERARDO (test code = GERARDO) Attending Anesthesiologist ID - [id number] Lab Interpretation Abnormal (test code = 59224-1) [facility] CampusHem[facility] and [id number] 04:17:00 Test Item Value Reference Range Interpretation Comments Hemoglobin (test code 8.0 See_Comment L [Auto mated = 786-4) message] The system which generated this result transmit ty reference range : 13.7 - 17.5 GM/ DL. The reference range was not u sed to interpret th is result as normal/abnormal . Hematocrit (test code 23.7 % 40.1-51.0 L = 4544-3) GERARDO (test code = GERARDO) Attending Anesthesiologist ID - [id number] Lab Interpretation Abnormal (test code = 13941-7) [facility] and [id number] 04:17:00 Test Item Value Reference Range Interpretation Comments Hemoglobin (test code 8.0 See_Comment L [Auto mated = 786-4) message] The system which generated this result transmit ty reference range : 13.7 - 17.5 GM/ DL. The reference range was not u sed to interpret th is result as normal/abnormal . Hematocrit (test code 23.7 % 40.1-51.0 L = 4544-3) GERARDO (test code = GERARDO) Attending Anesthesiologist ID - [id number] Lab Interpretation Abnormal (test code = 59558-2) [facility] CampusH[facility] and [id number] 04:17:00 Test Item Value Reference Range Interpretation Comments Hemoglobin (test code 8.0 See_Comment L [Auto mated = 786-4) message] The system which generated this result transmit ty reference range : 13.7 - 17.5 GM/ DL. The reference range was not u sed to interpret th is result as normal/abnormal . Hematocrit (test code 23.7 % 40.1-51.0 L = 4544-3) GERARDO (test code = GERARDO) Attending Anesthesiologist ID - [id number] Lab Interpretation Abnormal (test code = 38450-5) [facility] and [id number] 04:17:00 Test Item Value Reference Range Interpretation Comments Hemoglobin (test code 8.0 See_Comment L [Auto mated = 786-4) message] The system which generated this result transmit ty reference range : 13.7 - 17.5 GM/ DL. The reference range was not u sed to interpret th is result as normal/abnormal . Hematocrit (test code 23.7 % 40.1-51.0 L = 4544-3) GERARDO (test code = GERARDO) Attending Anesthesiologist ID - [id number] Lab Interpretation Abnormal (test code = 55128-2) [facility] CampusHEMOGLOBIN AND [id number] 04:17:00 Test Item Value Reference Range Interpretation Comments HEMOGLOBIN (BEAKER) (test code = 8.0 GM/DL 13.7-17.5 L 410) HEMATOCRIT (BEAKER) (test code = 23.7 % 40.1-51.0 L 411) Attending Anesthesiologist ID - [id number] METABOLIC [id number] 15:51:00 Test Item Value Reference Range Interpretation Comments SODIUM (BEAKER) 141 meq/L 136-145 (test code = 381) POTASSIUM (BEAKER) 3.1 meq/L 3.5-5.1 L (test code = 379) CHLORIDE (BEAKER) 106 meq/L 98-107 (test code = 382) CO2 (BEAKER) (test 25 meq/L 22-29 code = 355) BLOOD UREA NITROGEN 18 mg/dL 7-21 (BEAKER) (test code = 354) CREATININE (BEAKER) 0.76 mg/dL 0.57-1.25 (test code = 358) GLUCOSE RANDOM 100 mg/dL 70-105 (BEAKER) (test code = 652) CALCIUM (BEAKER) 8.2 mg/dL 8.4-10.2 L (test code = 697) EGFR (BEAKER) (test 101 mL/min/1.73 ESTIM ATED GFR IS code = 1092) sq m NOT ACCURATE CREATININE CLEARANCE IN PREDICTING GLOMERULAR FILTRATION RATE . ESTIMATED GFR I S NOT APPLICABLE FOR DIALYSIS PATIEN TS. BASIC METABOLIC [id number] 07:21:00 Test Item Value Reference Range Interpretation Comments SODIUM (BEAKER) 141 meq/L 136-145 (test code = 381) POTASSIUM (BEAKER) 3.0 meq/L 3.5-5.1 L (test code = 379) CHLORIDE (BEAKER) 106 meq/L 98-107 (test code = 382) CO2 (BEAKER) (test 28 meq/L 22-29 code = 355) BLOOD UREA NITROGEN 20 mg/dL 7-21 (BEAKER) (test code = 354) CREATININE (BEAKER) 0.79 mg/dL 0.57-1.25 (test code = 358) GLUCOSE RANDOM 106 mg/dL 70-105 H (BEAKER) (test code = 652) CALCIUM (BEAKER) 7.7 mg/dL 8.4-10.2 L (test code = 697) EGFR (BEAKER) (test 96 mL/min/1.73 ESTIMA TY GFR IS code = 1092) sq m NOT ACCURATE CREATININE CLEARANCE IN PREDICTING GLOMERULAR FILTRATION RATE . ESTIMATED GFR I S NOT APPLICABLE FOR DIALYSIS PATIEN TS. [facility]ending [facility] 07:19:00 Test Item Value Reference Range Interpretation Comments Magnesium (test code = 1.9 mg/dL 1.6-2.6 85995-3) GERARDO (test code = GERARDO) Attending Anesthesiologist ID - [facility] Lab Interpretation (test Normal code = 39318-0) [facility]2021-03-02 07:19:00 Test Item Value Reference Range Interpretation Comments Magnesium (test code = 1.9 mg/dL 1.6-2.6 08528-2) GERARDO (test code = GERARDO) Attending Anesthesiologist ID - [facility] Lab Interpretation (test Normal code = 56497-4) [facility]2021-03-02 07:19:00 Test Item Value Reference Range Interpretation Comments Magnesium (test code = 1.9 mg/dL 1.6-2.6 17909-3) GERARDO (test code = GERARDO) Attending Anesthesiologist ID - [facility] Lab Interpretation (test Normal code = 57898-4) [facility]2021-03-02 07:19:00 Test Item Value Reference Range Interpretation Comments Magnesium (test code = 1.9 mg/dL 1.6-2.6 49816-4) GERARDO (test code = GERARDO) Attending Anesthesiologist ID - [facility] Lab Interpretation (test Normal code = 89240-8) [facility]2021-03-02 07:19:00 Test Item Value Reference Range Interpretation Comments Magnesium (test code = 1.9 mg/dL 1.6-2.6 59828-2) GERARDO (test code = GERARDO) Attending Anesthesiologist ID - ELSA M Lab Interpretation (test Normal code = 27046-1) [facility] 07:19:00 Test Item Value Reference Range Interpretation Comments MAGNESIUM (BEAKER) (test code = 1.9 mg/dL 1.6-2.6 627) Attending Anesthesiologist ID - [facility] with platelet count + automated [id number] 07:00:00 Test Item Value Reference Range Interpretation Comments WBC (test code = 6690-2) 7.2 See_Comment [A utomated message] The system [employer] generated this result transmitted ref erence range: 3.5 - 10 .5 K/L. The refe rence range was not u sed to interpret this result as normal/abnor mal. RBC (test code = 789-8) 2.65 See_Comment L [Au tomated message] The system [employer] generated this result transmitted ref erence range: 4.63 - 6 .08 M/L. The refe rence range was not u sed to interpret this result as normal/abnor mal. MCHC (test code = 786-4) 33.6 See_Comment L [A utomated message] The system [employer] generated this result transmitted ref erence range: 32.3 - 3 6.5 GM/DL. The refe rence range was not u sed to interpret this result as normal/abnor mal. Hematocrit (test code = 24.1 % 40.1-51.0 L 4544-3) MCV (test code = 787-2) 90.9 fL 79.0-92.2 MCH (test code = 785-6) 30.6 pg 25.7-32.2 RDW (test code = 788-0) 17.9 % 11.6-14.4 H Platelets (test code = 219 See_Comment [Aut omated message] 777-3) The system [employer] generated this result transmitted ref erence range: 150 - 45 0 K/CU MM. The referen ce range was not u sed to interpret this result as normal/abnor mal. MPV (test code = 10.3 fL 9.4-12.4 45226-6) nRBC (test code = 413) 1 See_Comment H [Aut omated message] The system [employer] generated this result transmitted ref erence range: 0 - 0 /1 00 WBC. The refere nce range was not u sed to interpret this result as normal/abnor mal. % Neutros (test code = 75 % 429) % Lymphs (test code = 6 % 430) % Monos (test code = 14 % 431) % Eos (test code = 432) 4 % % Baso (test code = 437) 0 % # Neutros (test code = 5.41 See_Comment H [Aut omated message] 670) The system [employer] generated this result transmitted ref erence range: 1.78 - 5 .38 K/L. The refe rence range was not u sed to interpret this result as normal/abnor mal. # Lymphs (test code = 0.45 See_Comment L [Auto mated message] 414) The system [employer] generated this result transmitted ref erence range: 1.32 - 3 .57 K/L. The refe rence range was not u sed to interpret this result as normal/abnor mal. # Monos (test code = 0.99 See_Comment H [Autom ated message] 415) The system [employer] generated this result transmitted ref erence range: 0.30 - 0 .82 K/L. The refe rence range was not u sed to interpret this result as normal/abnor mal. # Eos (test code = 416) 0.27 See_Comment [Au tomated message] The system [employer] generated this result transmitted ref erence range: 0.04 - 0 .54 K/L. The refe rence range was not u sed to interpret this result as normal/abnor mal. # Baso (test code = 417) 0.03 See_Comment [A utomated message] The system [employer] generated this result transmitted ref erence range: 0.01 - 0 .08 K/L. The refe rence range was not u sed to interpret this result as normal/abnor mal. Immature 1 % 0-1 Granulocytes-Relative (test code = 2801) Lab Interpretation (test Abnormal code = 07961-7) [facility] with platelet count + automated [id number] 07:00:00 Test Item Value Reference Range Interpretation Comments WBC (test code = 6690-2) 7.2 See_Comment [A utomated message] The system [employer] generated this result transmitted ref erence range: 3.5 - 10 .5 K/L. The refe rence range was not u sed to interpret this result as normal/abnor mal. RBC (test code = 789-8) 2.65 See_Comment L [Au tomated message] The system [employer] generated this result transmitted ref erence range: 4.63 - 6 .08 M/L. The refe rence range was not u sed to interpret this result as normal/abnor mal. MCHC (test code = 786-4) 33.6 See_Comment L [A utomated message] The system [employer] generated this result transmitted ref erence range: 32.3 - 3 6.5 GM/DL. The refe rence range was not u sed to interpret this result as normal/abnor mal. Hematocrit (test code = 24.1 % 40.1-51.0 L 4544-3) MCV (test code = 787-2) 90.9 fL 79.0-92.2 MCH (test code = 785-6) 30.6 pg 25.7-32.2 RDW (test code = 788-0) 17.9 % 11.6-14.4 H Platelets (test code = 219 See_Comment [Aut omated message] 777-3) The system [employer] generated this result transmitted ref erence range: 150 - 45 0 K/CU MM. The referen ce range was not u sed to interpret this result as normal/abnor mal. MPV (test code = 10.3 fL 9.4-12.4 31272-2) nRBC (test code = 413) 1 See_Comment H [Aut omated message] The system [employer] generated this result transmitted ref erence range: 0 - 0 /1 00 WBC. The refere nce range was not u sed to interpret this result as normal/abnor mal. % Neutros (test code = 75 % 429) % Lymphs (test code = 6 % 430) % Monos (test code = 14 % 431) % Eos (test code = 432) 4 % % Baso (test code = 437) 0 % # Neutros (test code = 5.41 See_Comment H [Aut omated message] 670) The system [employer] generated this result transmitted ref erence range: 1.78 - 5 .38 K/L. The refe rence range was not u sed to interpret this result as normal/abnor mal. # Lymphs (test code = 0.45 See_Comment L [Auto mated message] 414) The system [employer] generated this result transmitted ref erence range: 1.32 - 3 .57 K/L. The refe rence range was not u sed to interpret this result as normal/abnor mal. # Monos (test code = 0.99 See_Comment H [Autom ated message] 415) The system [employer] generated this result transmitted ref erence range: 0.30 - 0 .82 K/L. The refe rence range was not u sed to interpret this result as normal/abnor mal. # Eos (test code = 416) 0.27 See_Comment [Au tomated message] The system [employer] generated this result transmitted ref erence range: 0.04 - 0 .54 K/L. The refe rence range was not u sed to interpret this result as normal/abnor mal. # Baso (test code = 417) 0.03 See_Comment [A utomated message] The system [employer] generated this result transmitted ref erence range: 0.01 - 0 .08 K/L. The refe rence range was not u sed to interpret this result as normal/abnor mal. Immature 1 % 0-1 Granulocytes-Relative (test code = 2801) Lab Interpretation (test Abnormal code = 94077-7) [facility] with platelet count + automated [id number] 07:00:00 Test Item Value Reference Range Interpretation Comments WBC (test code = 6690-2) 7.2 See_Comment [A utomated message] The system [employer] generated this result transmitted ref erence range: 3.5 - 10 .5 K/L. The refe rence range was not u sed to interpret this result as normal/abnor mal. RBC (test code = 789-8) 2.65 See_Comment L [Au tomated message] The system [employer] generated this result transmitted ref erence range: 4.63 - 6 .08 M/L. The refe rence range was not u sed to interpret this result as normal/abnor mal. MCHC (test code = 786-4) 33.6 See_Comment L [A utomated message] The system [employer] generated this result transmitted ref erence range: 32.3 - 3 6.5 GM/DL. The refe rence range was not u sed to interpret this result as normal/abnor mal. Hematocrit (test code = 24.1 % 40.1-51.0 L 4544-3) MCV (test code = 787-2) 90.9 fL 79.0-92.2 MCH (test code = 785-6) 30.6 pg 25.7-32.2 RDW (test code = 788-0) 17.9 % 11.6-14.4 H Platelets (test code = 219 See_Comment [Aut omated message] 777-3) The system [employer] generated this result transmitted ref erence range: 150 - 45 0 K/CU MM. The referen ce range was not u sed to interpret this result as normal/abnor mal. MPV (test code = 10.3 fL 9.4-12.4 37327-4) nRBC (test code = 413) 1 See_Comment H [Aut omated message] The system [employer] generated this result transmitted ref erence range: 0 - 0 /1 00 WBC. The refere nce range was not u sed to interpret this result as normal/abnor mal. % Neutros (test code = 75 % 429) % Lymphs (test code = 6 % 430) % Monos (test code = 14 % 431) % Eos (test code = 432) 4 % % Baso (test code = 437) 0 % # Neutros (test code = 5.41 See_Comment H [Aut omated message] 670) The system [employer] generated this result transmitted ref erence range: 1.78 - 5 .38 K/L. The refe rence range was not u sed to interpret this result as normal/abnor mal. # Lymphs (test code = 0.45 See_Comment L [Auto mated message] 414) The system [employer] generated this result transmitted ref erence range: 1.32 - 3 .57 K/L. The refe rence range was not u sed to interpret this result as normal/abnor mal. # Monos (test code = 0.99 See_Comment H [Autom ated message] 415) The system [employer] generated this result transmitted ref erence range: 0.30 - 0 .82 K/L. The refe rence range was not u sed to interpret this result as normal/abnor mal. # Eos (test code = 416) 0.27 See_Comment [Au tomated message] The system [employer] generated this result transmitted ref erence range: 0.04 - 0 .54 K/L. The refe rence range was not u sed to interpret this result as normal/abnor mal. # Baso (test code = 417) 0.03 See_Comment [A utomated message] The system [employer] generated this result transmitted ref erence range: 0.01 - 0 .08 K/L. The refe rence range was not u sed to interpret this result as normal/abnor mal. Immature 1 % 0-1 Granulocytes-Relative (test code = 2801) Lab Interpretation (test Abnormal code = 80342-3) [facility] with platelet count + automated [id number] 07:00:00 Test Item Value Reference Range Interpretation Comments WBC (test code = 6690-2) 7.2 See_Comment [A utomated message] The system [employer] generated this result transmitted ref erence range: 3.5 - 10 .5 K/L. The refe rence range was not u sed to interpret this result as normal/abnor mal. RBC (test code = 789-8) 2.65 See_Comment L [Au tomated message] The system [employer] generated this result transmitted ref erence range: 4.63 - 6 .08 M/L. The refe rence range was not u sed to interpret this result as normal/abnor mal. MCHC (test code = 786-4) 33.6 See_Comment L [A utomated message] The system [employer] generated this result transmitted ref erence range: 32.3 - 3 6.5 GM/DL. The refe rence range was not u sed to interpret this result as normal/abnor mal. Hematocrit (test code = 24.1 % 40.1-51.0 L 4544-3) MCV (test code = 787-2) 90.9 fL 79.0-92.2 MCH (test code = 785-6) 30.6 pg 25.7-32.2 RDW (test code = 788-0) 17.9 % 11.6-14.4 H Platelets (test code = 219 See_Comment [Aut omated message] 777-3) The system [employer] generated this result transmitted ref erence range: 150 - 45 0 K/CU MM. The referen ce range was not u sed to interpret this result as normal/abnor mal. MPV (test code = 10.3 fL 9.4-12.4 90501-6) nRBC (test code = 413) 1 See_Comment H [Aut omated message] The system [employer] generated this result transmitted ref erence range: 0 - 0 /1 00 WBC. The refere nce range was not u sed to interpret this result as normal/abnor mal. % Neutros (test code = 75 % 429) % Lymphs (test code = 6 % 430) % Monos (test code = 14 % 431) % Eos (test code = 432) 4 % % Baso (test code = 437) 0 % # Neutros (test code = 5.41 See_Comment H [Aut omated message] 670) The system [employer] generated this result transmitted ref erence range: 1.78 - 5 .38 K/L. The refe rence range was not u sed to interpret this result as normal/abnor mal. # Lymphs (test code = 0.45 See_Comment L [Auto mated message] 414) The system [employer] generated this result transmitted ref erence range: 1.32 - 3 .57 K/L. The refe rence range was not u sed to interpret this result as normal/abnor mal. # Monos (test code = 0.99 See_Comment H [Autom ated message] 415) The system [employer] generated this result transmitted ref erence range: 0.30 - 0 .82 K/L. The refe rence range was not u sed to interpret this result as normal/abnor mal. # Eos (test code = 416) 0.27 See_Comment [Au tomated message] The system [employer] generated this result transmitted ref erence range: 0.04 - 0 .54 K/L. The refe rence range was not u sed to interpret this result as normal/abnor mal. # Baso (test code = 417) 0.03 See_Comment [A utomated message] The system [employer] generated this result transmitted ref erence range: 0.01 - 0 .08 K/L. The refe rence range was not u sed to interpret this result as normal/abnor mal. Immature 1 % 0-1 Granulocytes-Relative (test code = 2801) Lab Interpretation (test Abnormal code = 15758-0) [facility] with platelet count + automated [id number] 07:00:00 Test Item Value Reference Range Interpretation Comments WBC (test code = 6690-2) 7.2 See_Comment [A utomated message] The system [employer] generated this result transmitted ref erence range: 3.5 - 10 .5 K/L. The refe rence range was not u sed to interpret this result as normal/abnor mal. RBC (test code = 789-8) 2.65 See_Comment L [Au tomated message] The system [employer] generated this result transmitted ref erence range: 4.63 - 6 .08 M/L. The refe rence range was not u sed to interpret this result as normal/abnor mal. MCHC (test code = 786-4) 33.6 See_Comment L [A utomated message] The system [employer] generated this result transmitted ref erence range: 32.3 - 3 6.5 GM/DL. The refe rence range was not u sed to interpret this result as normal/abnor mal. Hematocrit (test code = 24.1 % 40.1-51.0 L 4544-3) MCV (test code = 787-2) 90.9 fL 79.0-92.2 MCH (test code = 785-6) 30.6 pg 25.7-32.2 RDW (test code = 788-0) 17.9 % 11.6-14.4 H Platelets (test code = 219 See_Comment [Aut omated message] 777-3) The system [employer] generated this result transmitted ref erence range: 150 - 45 0 K/CU MM. The referen ce range was not u sed to interpret this result as normal/abnor mal. MPV (test code = 10.3 fL 9.4-12.4 00298-7) nRBC (test code = 413) 1 See_Comment H [Aut omated message] The system [employer] generated this result transmitted ref erence range: 0 - 0 /1 00 WBC. The refere nce range was not u sed to interpret this result as normal/abnor mal. % Neutros (test code = 75 % 429) % Lymphs (test code = 6 % 430) % Monos (test code = 14 % 431) % Eos (test code = 432) 4 % % Baso (test code = 437) 0 % # Neutros (test code = 5.41 See_Comment H [Aut omated message] 670) The system [employer] generated this result transmitted ref erence range: 1.78 - 5 .38 K/L. The refe rence range was not u sed to interpret this result as normal/abnor mal. # Lymphs (test code = 0.45 See_Comment L [Auto mated message] 414) The system [employer] generated this result transmitted ref erence range: 1.32 - 3 .57 K/L. The refe rence range was not u sed to interpret this result as normal/abnor mal. # Monos (test code = 0.99 See_Comment H [Autom ated message] 415) The system [employer] generated this result transmitted ref erence range: 0.30 - 0 .82 K/L. The refe rence range was not u sed to interpret this result as normal/abnor mal. # Eos (test code = 416) 0.27 See_Comment [Au tomated message] The system [employer] generated this result transmitted ref erence range: 0.04 - 0 .54 K/L. The refe rence range was not u sed to interpret this result as normal/abnor mal. # Baso (test code = 417) 0.03 See_Comment [A utomated message] The system [employer] generated this result transmitted ref erence range: 0.01 - 0 .08 K/L. The refe rence range was not u sed to interpret this result as normal/abnor mal. Immature 1 % 0-1 Granulocytes-Relative (test code = 2801) Lab Interpretation (test Abnormal code = 39701-0) [facility] W/PLT COUNT & AUTO [id number] 07:00:00 Test Item Value Reference Range Interpretation Comments WHITE BLOOD CELL COUNT (BEAKER) 7.2 K/ L 3.5-10.5 (test code = 775) RED BLOOD CELL COUNT (BEAKER) 2.65 M/ L 4.63-6.08 L (test code = 761) HEMOGLOBIN (BEAKER) (test code = 8.1 GM/DL 13.7-17.5 L 410) HEMATOCRIT (BEAKER) (test code = 24.1 % 40.1-51.0 L 411) MEAN CORPUSCULAR VOLUME (BEAKER) 90.9 fL 79.0-92.2 (test code = 753) MEAN CORPUSCULAR HEMOGLOBIN 30.6 pg 25.7-32.2 (BEAKER) (test code = 751) MEAN CORPUSCULAR HEMOGLOBIN CONC 33.6 GM/DL 32.3-36.5 (BEAKER) (test code = 752) RED CELL DISTRIBUTION WIDTH 17.9 % 11.6-14.4 H (BEAKER) (test code = 412) PLATELET COUNT (BEAKER) (test 219 K/CU MM 150-450 code = 756) MEAN PLATELET VOLUME (BEAKER) 10.3 fL 9.4-12.4 (test code = 754) NUCLEATED RED BLOOD CELLS 1 /100 WBC 0-0 H (BEAKER) (test code = 413) NEUTROPHILS RELATIVE PERCENT 75 % (BEAKER) (test code = 429) LYMPHOCYTES RELATIVE PERCENT 6 % (BEAKER) (test code = 430) MONOCYTES RELATIVE PERCENT 14 % (BEAKER) (test code = 431) EOSINOPHILS RELATIVE PERCENT 4 % (BEAKER) (test code = 432) BASOPHILS RELATIVE PERCENT 0 % (BEAKER) (test code = 437) NEUTROPHILS ABSOLUTE COUNT 5.41 K/ L 1.78-5.38 H (BEAKER) (test code = 670) LYMPHOCYTES ABSOLUTE COUNT 0.45 K/ L 1.32-3.57 L (BEAKER) (test code = 414) MONOCYTES ABSOLUTE COUNT (BEAKER) 0.99 K/ L 0.30-0.82 H (test code = 415) EOSINOPHILS ABSOLUTE COUNT 0.27 K/ L 0.04-0.54 (BEAKER) (test code = 416) BASOPHILS ABSOLUTE COUNT (BEAKER) 0.03 K/ L 0.01-0.08 (test code = 417) IMMATURE GRANULOCYTES-RELATIVE 1 % 0-1 PERCENT (BEAKER) (test code = 2801) SARS-CoV2/RT-PCR (Asymptomatic ONLY)2020-07-17 00:09:00 Test Item Value Reference Range Interpretation Comments SARS-COV2/RT-PCR Negative Not Detected, (test code = Negative, See 96135-8) external report for linked test [facility]2 [facility] (test code = 38018-0) GERARDO (test code = Negative result for this GERARDO) test determines that SARS-CoV-2 RNA was not present in the specimen above the Limit of Detection (LOD). However, Negative results do not preclude SARS-CoV-2 infection and should not be used as the sole basis for treatment or patient management decisions. Negative results must be combined with clinical observations, patient history, and epidemiological information. A false negative result may occur if a specimen is improperly collected, transported or handled. A false negative result should be considered if patient's recent exposures or clinical presentation indicate that COVID-19 (SARS-CoV-2) is likely and diagnostic tests for other causes of illness are negative. Re-testing should be considered in cases of suspected false negatives. The limit of detection for this assay is 800 copies/mL. This SARS CoV-2 test is a real-time RT-PCR test intended for the qualitative detection of nucleic acid from SARS-CoV-2 in a nasopharyngeal swab specimen collected from individuals suspected of COVID-19 by their healthcare provider. This test has not been Food and Drug Administration (FDA) cleared or approved. This is a modified version of an approved Emergency Use Authorization (EUA) and is in the process of review by the FDA. Once authorized by the FDA, the issued EUA will be effective until the declaration that circumstances exist justifying the authorization of the emergency use of in vitro diagnostic tests for detection and/or diagnosis of COVID-19 is terminated under Section 564(b)(2) of the Act or the EUA is revoked under Section 564(g) of the Act. Fact Sheet for Healthcare Providers:https://www.[employer]/sites/default/f nazanin/product/documents/F act_Sheet_HC_Providers_L sbp_GAZU-ZsO-6.pdf Fact Sheet for Healthcare Patients:https://www.[employer]/sites/default/fi les/product/documents/Fa ct_Sheet_Patients_Lyra_S ARS-CoV-2.pdf Performing Laboratory:[facility]-CoV2/RT-PCR (Asymptomatic ONLY)2020-07-17 00:09:00 Test Item Value Reference Range Interpretation Comments SARS-COV2/RT-PCR Negative Not Detected, (test code = Negative, See 26836-7) external report for linked test SARS-COV-2 [facility] PERFORMING LAB (test code = 97467-8) GERARDO (test code = Negative result for this GERARDO) test determines that SARS-CoV-2 RNA was not present in the specimen above the Limit of Detection (LOD). However, Negative results do not preclude SARS-CoV-2 infection and should not be used as the sole basis for treatment or patient management decisions. Negative results must be combined with clinical observations, patient history, and epidemiological information. A false negative result may occur if a specimen is improperly collected, transported or handled. A false negative result should be considered if patient's recent exposures or clinical presentation indicate that COVID-19 (SARS-CoV-2) is likely and diagnostic tests for other causes of illness are negative. Re-testing should be considered in cases of suspected false negatives. The limit of detection for this assay is 800 copies/mL. This SARS CoV-2 test is a real-time RT-PCR test intended for the qualitative detection of nucleic acid from SARS-CoV-2 in a nasopharyngeal swab specimen collected from individuals suspected of COVID-19 by their healthcare provider. This test has not been Food and Drug Administration (FDA) cleared or approved. This is a modified version of an approved Emergency Use Authorization (EUA) and is in the process of review by the FDA. Once authorized by the FDA, the issued EUA will be effective until the declaration that circumstances exist justifying the authorization of the emergency use of in vitro diagnostic tests for detection and/or diagnosis of COVID-19 is terminated under Section 564(b)(2) of the Act or the EUA is revoked under Section 564(g) of the Act. Fact Sheet for Healthcare Providers:https://www.[employer]/sites/default/f nazanin/product/documents/F act_Sheet_HC_Providers_L ngu_LWKS-FtC-0.pdf Fact Sheet for Healthcare Patients:https://www.[employer]/sites/default/fi les/product/documents/Fa ct_Sheet_Patients_Lyra_S ARS-CoV-2.pdf Performing Laboratory:[facility] [place] [address] [facility]2020-07-17 00:09:00 Test Item Value Reference Range Interpretation Comments SARS-COV2/RT-PCR Negative Not Detected, (test code = Negative, See 32084-9) external report for linked test SARS-COV-2 [facility] PERFORM[facility] LAB (test code = 78311-2) GERARDO (test code = Negative result for this GERARDO) test determines that SARS-CoV-2 RNA was not present in the specimen above the Limit of Detection (LOD). However, Negative results do not preclude SARS-CoV-2 infection and should not be used as the sole basis for treatment or patient management decisions. Negative results must be combined with clinical observations, patient history, and epidemiological information. A false negative result may occur if a specimen is improperly collected, transported or handled. A false negative result should be considered if patient's recent exposures or clinical presentation indicate that COVID-19 (SARS-CoV-2) is likely and diagnostic tests for other causes of illness are negative. Re-testing should be considered in cases of suspected false negatives. The limit of detection for this assay is 800 copies/mL. This SARS CoV-2 test is a real-time RT-PCR test intended for the qualitative detection of nucleic acid from SARS-CoV-2 in a nasopharyngeal swab specimen collected from individuals suspected of COVID-19 by their healthcare provider. This test has not been Food and Drug Administration (FDA) cleared or approved. This is a modified version of an approved Emergency Use Authorization (EUA) and is in the process of review by the FDA. Once authorized by the FDA, the issued EUA will be effective until the declaration that circumstances exist justifying the authorization of the emergency use of in vitro diagnostic tests for detection and/or diagnosis of COVID-19 is terminated under Section 564(b)(2) of the Act or the EUA is revoked under Section 564(g) of the Act. Fact Sheet for Healthcare Providers:https://www.[employer]/sites/default/f nazanin/product/documents/F act_Sheet_HC_Providers_L aio_PXRN-ZaX-4.pdf Fact Sheet for Healthcare Patients:https://www.[employer]/sites/default/fi les/product/documents/Fa ct_Sheet_Patients_Lyra_S ARS-CoV-2.pdf Performing Laboratory:[facility] [place] [address] [facility]2020-07-17 00:09:00 Test Item Value Reference Range Interpretation Comments SARS-COV2/RT-PCR Negative Not Detected, (test code = Negative, See 37623-9) external report for linked test SARS-COV-2 [facility] PERFORM[facility] (test code = 92774-3) GERARDO (test code = Negative result for this GERARDO) test determines that SARS-CoV-2 RNA was not present in the specimen above the Limit of Detection (LOD). However, Negative results do not preclude SARS-CoV-2 infection and should not be used as the sole basis for treatment or patient management decisions. Negative results must be combined with clinical observations, patient history, and epidemiological information. A false negative result may occur if a specimen is improperly collected, transported or handled. A false negative result should be considered if patient's recent exposures or clinical presentation indicate that COVID-19 (SARS-CoV-2) is likely and diagnostic tests for other causes of illness are negative. Re-testing should be considered in cases of suspected false negatives. The limit of detection for this assay is 800 copies/mL. This SARS CoV-2 test is a real-time RT-PCR test intended for the qualitative detection of nucleic acid from SARS-CoV-2 in a nasopharyngeal swab specimen collected from individuals suspected of COVID-19 by their healthcare provider. This test has not been Food and Drug Administration (FDA) cleared or approved. This is a modified version of an approved Emergency Use Authorization (EUA) and is in the process of review by the FDA. Once authorized by the FDA, the issued EUA will be effective until the declaration that circumstances exist justifying the authorization of the emergency use of in vitro diagnostic tests for detection and/or diagnosis of COVID-19 is terminated under Section 564(b)(2) of the Act or the EUA is revoked under Section 564(g) of the Act. Fact Sheet for Healthcare Providers:https://www.[employer]/sites/default/f nazanin/product/documents/F act_Sheet_HC_Providers_L cbv_VHXJ-YuC-5.pdf Fact Sheet for Healthcare Patients:https://www.[employer]/sites/default/fi les/product/documents/Fa ct_Sheet_Patients_Lyra_S ARS-CoV-2.pdf Performing Laboratory:[facility], [place] [id number] [place], [place] [address]ARS-CoV2/RT-PCR (Asymptomatic ONLY)2020-07-17 00:09:00 Test Item Value Reference Range Interpretation Comments SARS-COV2/RT-PCR Negative Not Detected, (test code = Negative, See 54284-8) external report for linked test SARS-COV-2 [facility] PERFORM[facility] (test code = 58691-7) GERARDO (test code = Negative result for this GERARDO) test determines that SARS-CoV-2 RNA was not present in the specimen above the Limit of Detection (LOD). However, Negative results do not preclude SARS-CoV-2 infection and should not be used as the sole basis for treatment or patient management decisions. Negative results must be combined with clinical observations, patient history, and epidemiological information. A false negative result may occur if a specimen is improperly collected, transported or handled. A false negative result should be considered if patient's recent exposures or clinical presentation indicate that COVID-19 (SARS-CoV-2) is likely and diagnostic tests for other causes of illness are negative. Re-testing should be considered in cases of suspected false negatives. The limit of detection for this assay is 800 copies/mL. This SARS CoV-2 test is a real-time RT-PCR test intended for the qualitative detection of nucleic acid from SARS-CoV-2 in a nasopharyngeal swab specimen collected from individuals suspected of COVID-19 by their healthcare provider. This test has not been Food and Drug Administration (FDA) cleared or approved. This is a modified version of an approved Emergency Use Authorization (EUA) and is in the process of review by the FDA. Once authorized by the FDA, the issued EUA will be effective until the declaration that circumstances exist justifying the authorization of the emergency use of in vitro diagnostic tests for detection and/or diagnosis of COVID-19 is terminated under Section 564(b)(2) of the Act or the EUA is revoked under Section 564(g) of the Act. Fact Sheet for Healthcare Providers:https://www.[employer]/sites/default/f nazanin/product/documents/F act_Sheet_HC_Providers_L wcu_BUUW-RdW-4.pdf Fact Sheet for Healthcare Patients:https://www.[employer]/sites/default/fi les/product/documents/Fa ct_Sheet_Patients_Lyra_S ARS-CoV-2.pdf Performing Laboratory:[facility], [place] [id number] [place], [place] [address]ARS-COV2/RT-PCR ([facility])2020-07-17 00:09:00 Test Item Value Reference Range Interpretation Comments SARS-COV2/RT-PCR (test Negative Not Detected, Negative, code = 2401876) See external report for linked test SARS-COV-2 PERFORMING LAB [facility] (test code = 6959503) Negative result for this test determines that SARS-CoV-2 RNA was not present in the specimen above the Limit of Detection (LOD). However, Negative results do not preclude SARS-CoV-2 infection and should not be used as the sole basis for treatment or patient management decisions. Negative results mustbe combined with clinical observations, patient history, and epidemiological information. A false negative result may occur if a specimen is improperly collected, transported or handled. A false negative result should be considered if patient's recent exposures or clinical presentation indicate that COVID-19 (SARS-CoV-2) is likely and diagnostic tests for other causes of illness are negative. Re-testing should be considered in cases of suspected false negatives.The limit of detection for this assay is 800 copies/mL.This SARS CoV-2 test is a real-time RT-PCR test intended for the qualitative detection of nucleic acid from SARS-CoV-2 in a nasopharyngeal swab specimen collected from individuals susp ected of COVID-19 by their healthcare provider.This test has not been Food and Drug Administration (FDA) cleared or approved. This is a modified version of an approved Emergency Use Authorization (EUA) and is in the process of review by the FDA. Once authorized by the FDA, the issued EUA will be effective until the declaration that circumstances exist justifying the authorization of the emergency use of in vitro diagnostic tests for detection and/or diagnosis of COVID-19 is terminated under Section 564(b)(2) of the Act or the EUA is revoked under Section 564(g) of the Act.Fact Sheet for Healthcare Providers:https://www.[employer].com/sites/default/files/product/documents/Fact_Shee c_UG_Yadbgktgd_Yfit_JVLS-SlA-5.pdfFact Sheet for Healthcare Patients:https://www.[employer].com/sites/default/files/product/ documents/Bdgg_Uziqa_Eqzdprzy_Ctkv_FNMP-OdM-9.pdfPerforming Laboratory:[facility], [place] [id number] 20:18:00 Test Item Value Reference Range Interpretation Comments Ferritin (test code = 101.20 ng/mL 5.00-275.00 2276-4) GERARDO (test code = GERARDO) Attending Anesthesiologist ID - BS Lab Interpretation (test Normal code = 69673-0) [facility] 20:18:00 Test Item Value Reference Range Interpretation Comments Ferritin (test code = 101.20 ng/mL 5.00-275.00 6-4) GERARDO (test code = GERARDO) Attending Anesthesiologist ID - BS Lab Interpretation (test Normal code = 63276-4) [facility] 20:18:00 Test Item Value Reference Range Interpretation Comments Ferritin (test code = 101.20 ng/mL 5.00-275.00 2276-4) GERARDO (test code = GERARDO) Attending Anesthesiologist ID - BS Lab Interpretation (test Normal code = 98562-0) [facility] 20:18:00 Test Item Value Reference Range Interpretation Comments Ferritin (test code = 101.20 ng/mL 5.00-275.00 2276-4) GERARDO (test code = GERARDO) Attending Anesthesiologist ID - BS Lab Interpretation (test Normal code = 40547-7) [facility] 20:18:00 Test Item Value Reference Range Interpretation Comments Ferritin (test code = 101.20 ng/mL 5.00-275.00 2276-4) GERARDO (test code = GERARDO) Attending Anesthesiologist ID - BS Lab Interpretation (test Normal code = 42601-9) [facility] CampusFERR[facility]IN2021-[facility]-01 20:18:00 Test Item Value Reference Range Interpretation Comments FERRITIN (BEAKER) (test code = 101.20 ng/mL 5.00-275.00 361) Attending Anesthesiologist ID - BSB-type Natriuretic Factor (BNP)2020-07-16 19:58:00 Test Item Value Reference Range Interpretation Comments BNP (test code = 94608-4) 344 pg/mL 0-100 H GERARDO (test code = GERARDO) Attending Anesthesiologist ID - BS Lab Interpretation (test Abnormal code = 64559-9) [facility] CampusIron, TIBC, % sat. (without ferritin)2020-07-16 19:58:00 Test Item Value Reference Range Interpretation Comments Iron (test code = 2498-4) 32.0 ug/dL 40.0-160.0 L TIBC (test code = 2500-7) 174 ug/dL 250-450 L Iron % Saturation (test code 18 % 20-55 L = 2502-3) GERARDO (test code = GERARDO) Attending Anesthesiologist ID - BS Lab Interpretation (test Abnormal code = 63902-5) [facility] CampusB-[facility] Natriuretic Factor (BNP)2020-07-16 19:58:00 Test Item Value Reference Range Interpretation Comments BNP (test code = 81466-9) 344 pg/mL 0-100 H GERARDO (test code = GERARDO) Attending Anesthesiologist ID - BS Lab Interpretation (test Abnormal code = 22166-0) [facility] CampusIron, TIBC, % sat. (without ferritin)2020-07-16 19:58:00 Test Item Value Reference Range Interpretation Comments Iron (test code = 2498-4) 32.0 ug/dL 40.0-160.0 L TIBC (test code = 2500-7) 174 ug/dL 250-450 L Iron % Saturation (test code 18 % 20-55 L = 2502-3) GERARDO (test code = GERARDO) Attending Anesthesiologist ID - BS Lab Interpretation (test Abnormal code = 87570-6) [facility] CampusB-[facility] Natriuretic Factor (BNP)2020-07-16 19:58:00 Test Item Value Reference Range Interpretation Comments BNP (test code = 05806-4) 344 pg/mL 0-100 H GERARDO (test code = GERARDO) Attending Anesthesiologist ID - BS Lab Interpretation (test Abnormal code = 49523-7) [facility] CampusIron, TIBC, % sat. (without ferritin)2020-07-16 19:58:00 Test Item Value Reference Range Interpretation Comments Iron (test code = 2498-4) 32.0 ug/dL 40.0-160.0 L TIBC (test code = 2500-7) 174 ug/dL 250-450 L Iron % Saturation (test code 18 % 20-55 L = 2502-3) GERARDO (test code = GERARDO) Attending Anesthesiologist ID - BS Lab Interpretation (test Abnormal code = 25621-7) [facility] Nat[facility] (BNP)2020-07-16 19:58:00 Test Item Value Reference Range Interpretation Comments BNP (test code = 28288-4) 344 pg/mL 0-100 H GERARDO (test code = GERARDO) Attending Anesthesiologist ID - BS Lab Interpretation (test Abnormal code = 63738-4) [facility] CampusIron, TIBC, % sat. (without ferritin)2020-07-16 19:58:00 Test Item Value Reference Range Interpretation Comments Iron (test code = 2498-4) 32.0 ug/dL 40.0-160.0 L TIBC (test code = 2500-7) 174 ug/dL 250-450 L Iron % Saturation (test code 18 % 20-55 L = 2502-3) GERARDO (test code = GERARDO) Attending Anesthesiologist ID - BS Lab Interpretation (test Abnormal code = 63706-6) [facility] CampusB[facility] Nat[facility] Factor (BNP)2020-07-16 19:58:00 Test Item Value Reference Range Interpretation Comments BNP (test code = 32273-1) 344 pg/mL 0-100 H GERARDO (test code = GERARDO) Attending Anesthesiologist ID - BS Lab Interpretation (test Abnormal code = 76109-1) [facility] CampusIron, TIBC, % sat. (without ferritin)2020-07-16 19:58:00 Test Item Value Reference Range Interpretation Comments Iron (test code = 2498-4) 32.0 ug/dL 40.0-160.0 L TIBC (test code = 2500-7) 174 ug/dL 250-450 L Iron % Saturation (test code 18 % 20-55 L = 2502-3) GERARDO (test code = GERARDO) Attending Anesthesiologist ID - BS Lab Interpretation (test Abnormal code = 26066-5) [facility] CampusB-TYPE NATRIURETIC FACTOR (BNP)2020-07-16 19:58:00 Test Item Value Reference Range Interpretation Comments B-TYPE NATRIURETIC PEPTIDE (BEAKER) 344 pg/mL 0-100 H (test code = 700) Attending Anesthesiologist ID - BSIRON, TIBC, % SAT. (WITHOUT FERRITIN)2020-07-16 19:58:00 Test Item Value Reference Range Interpretation Comments IRON (BEAKER) (test code = 547) 32.0 ug/dL 40.0-160.0 L TOTAL IRON BINDING CAPACITY 174 ug/dL 250-450 L (BEAKER) (test code = 769) IRON % SATURATION (2) (BEAKER) 18 % 20-55 L (test code = 2590) Attending Anesthesiologist ID - BSABORH, [id number] 17:08:00 Test Item Value Reference Range Interpretation Comments ABO Grouping (test code = 2588) A Rh Factor (test code = 2589) POS [facility] CampusABORH, [id number] 17:08:00 Test Item Value Reference Range Interpretation Comments ABO Grouping (test code = 2588) A Rh Factor (test code = 2589) POS [facility], [id number] 17:08:00 Test Item Value Reference Range Interpretation Comments ABO Grouping (test code = 2588) A Rh Factor (test code = 2589) POS [facility], [id number] 17:08:00 Test Item Value Reference Range Interpretation Comments ABO Grouping (test code = 2588) A Rh Factor (test code = 2589) POS [facility] CampusRAD, CHEST, 1 VIEW, NON [id number] 17:07:00 Reason for exam:->ABNORMAL LABShould this be performed at the bedside?->YesR[facility] : 1945 Sex: MFINAL REPORT TECHNIQUE: Frontal view of the chest. INDICATION: 74-yea r-old man with abnormal lab. COMPARISON: Chest radiograph 09/08/2015. FINDINGS: LINES/TUBES: None. LUNGS: Lungs are well inflated. No consolidation or pulmonary edema. No significant change in bilateral calcified granulomas. PLEURA: No pneumothorax or significant pleural effusion. HEART AND MEDIASTINUM: Cardiomediastinal silhouette is within normal limits. BONES AND SOFT TISSUES: And intact median sternotomy wires. Soft tissues are unremarkable. IMPRESSION:No acute cardiopulmonary abnormalities. Signed: Sheree Cannon MDReport Verified Date/Time: 07/16/2020 17:07:35 Reading Location: [facility] [id number] Consult Reading Room Type and screen, automated ([facility] and [facility] only)2020-07-16 16:56:00 Test Item Value Reference Range Interpretation Comments ABO/RH AUTOMATED (BEAKER) (test A POSITIVE code = 2260) Ab Scrn (test code = 890-4) NEGATIVE [facility] CampusType and screen, automated ([facility] and [facility] only) 2020-07-16 16:56:00 Test Item Value Reference Range Interpretation Comments ABO/RH AUTOMATED (BEAKER) (test A POSITIVE code = 2260) Ab Scrn (test code = 890-4) NEGATIVE [facility] CampusType and screen, automated ([facility] and [facility] only) 2020-07-16 16:56:00 Test Item Value Reference Range Interpretation Comments ABO/RH AUTOMATED (BEAKER) (test A POSITIVE code = 2260) Ab Scrn (test code = 890-4) NEGATIVE [facility] CampusType and screen, automated ([facility] and [facility] only) 2020-07-16 16:56:00 Test Item Value Reference Range Interpretation Comments ABO/RH AUTOMATED (BEAKER) (test A POSITIVE code = 2260) Ab Scrn (test code = 890-4) NEGATIVE [facility] CampusType and screen, automated ([facility] and [facility] only) 2020-07-16 16:56:00 Test Item Value Reference Range Interpretation Comments ABO/RH AUTOMATED (BEAKER) (test A POSITIVE code = 2260) Ab Scrn (test code = 890-4) NEGATIVE [facility] CampusComprehensive metabolic [id number] 16:33:00 Test Item Value Reference Range Interpretation Comments Protein, Total (test 5.1 See_Comment L Specime n slightly code = 2885-2) hemolyzed [Automated message] The system which generated this result transmit ty reference range : 6.0 - 8.3 gm/dL . The reference range was not u sed to interpret th is result as normal/abnormal . Albumin (test code = 2.4 g/dL 3.5-5.0 L Specime n slightly 00226-2) hemolyzed Alkaline Phosphatase 45 U/L 40-150 (test code = 6768-6) Total Bilirubin (test 0.2 mg/dL 0.2-1.2 Specim en slightly code = 1974-) hemolyzed Sodium (test code = 138 meq/L 708-996 5988-2) Potassium (test code 2.7 meq/L 3.5-5.1 L Specime n slightly = 2823-3) hemolyzed Chloride (test code = 106 meq/L 98-107 5-0) CO2 (test code = 23 meq/L 22-29 2027-9) BUN (test code = 30 mg/dL 7-21 H 3094-0) Creatinine (test code 0.67 mg/dL 0.57-1.25 Specim en slightly = 2160-0) hemolyzed Glucose (test code = 104 mg/dL 70-105 2345-7) Calcium (test code = 7.4 mg/dL 8.4-10.2 L 93793-1) AST (test code = 37 U/L 5-34 H Specimen sl ightly 1920-8) hemolyzed ALT (test code = 36 U/L 6-55 Specimen sl ightly 1742-6) hemolyzed EGFR (test code = 117 mL/min/1[place] [address]-1) NOT ACCURATE CREATININE CLEARANCE IN PREDICTING GLOMERULAR FILTRATION RATE . ESTIMATED GFR I S NOT APPLICABLE FOR DIALYSIS PATIEN TS. GERARDO (test code = GERARDO) Attending Anesthesiologist ID - ELSA M Lab Interpretation Abnormal (test code = 10719-5) [facility] CampusComprehensive metabolic [id number] 16:33:00 Test Item Value Reference Range Interpretation Comments Protein, Total (test 5.1 See_Comment L Specime n slightly code = 2885-2) hemolyzed [Automated message] The system which generated this result transmit ty reference range : 6.0 - 8.3 gm/dL . The reference range was not u sed to interpret th is result as normal/abnormal . Albumin (test code = 2.4 g/dL 3.5-5.0 L Specime n slightly 35117-0) hemolyzed Alkaline Phosphatase 45 U/L 40-150 (test code = 6768-6) Total Bilirubin (test 0.2 mg/dL 0.2-1.2 Specim en slightly code = 1974-) hemolyzed Sodium (test code = 138 meq/L 908-910 1736-2) Potassium (test code 2.7 meq/L 3.5-5.1 L Specime n slightly = 2823-3) hemolyzed Chloride (test code = 106 meq/L 98-107 2075-0) CO2 (test code = 23 meq/L 22-29 8-9) BUN (test code = 30 mg/dL 7-21 H 3094-0) Creatinine (test code 0.67 mg/dL 0.57-1.25 Specim en slightly = 2160-0) hemolyzed Glucose (test code = 104 mg/dL 70-105 2345-7) Calcium (test code = 7.4 mg/dL 8.4-10.2 L 98721-4) AST (test code = 37 U/L 5-34 H Specimen sl ightly 1920-8) hemolyzed ALT (test code = 36 U/L 6-55 Specimen sl ightly 1742-6) hemolyzed EGFR (test code = 117 mL/min/1[place] [address]-2) NOT ACCURATE CREATININE CLEARANCE IN PREDICTING GLOMERULAR FILTRATION RATE . ESTIMATED GFR I S NOT APPLICABLE FOR DIALYSIS PATIEN TSRickie CARRILLO (test code = GERARDO) Attending Anesthesiologist ID - ELSA Finney Lab Interpretation Abnormal (test code = 53135-5) [facility] CampusComprehensive metabolic [id number] 16:33:00 Test Item Value Reference Range Interpretation Comments Protein, Total (test 5.1 See_Comment L Specime n slightly code = 0385-2) hemolyzed [Automated message] The system which generated this result transmit ty reference range : 6.0 - 8.3 gm/dL . The reference range was not u sed to interpret th is result as normal/abnormal . Albumin (test code = 2.4 g/dL 3.5-5.0 L Specime n slightly 82893-1) hemolyzed Alkaline Phosphatase 45 U/L 40-150 (test code = 6768-6) Total Bilirubin (test 0.2 mg/dL 0.2-1.2 Specim en slightly code = 1974-) hemolyzed Sodium (test code = 138 meq/L 031-683 9479-2) Potassium (test code 2.7 meq/L 3.5-5.1 L Specime n slightly = 2823-3) hemolyzed Chloride (test code = 106 meq/L 98-107 5-0) CO2 (test code = 23 meq/L 22-29 2027-9) BUN (test code = 30 mg/dL 7-21 H 3094-0) Creatinine (test code 0.67 mg/dL 0.57-1.25 Specim en slightly = 2160-0) hemolyzed Glucose (test code = 104 mg/dL 70-105 2345-7) Calcium (test code = 7.4 mg/dL 8.4-10.2 L 15578-4) AST (test code = 37 U/L 5-34 H Specimen sl ightly 1920-8) hemolyzed ALT (test code = 36 U/L 6-55 Specimen sl ightly 1742-6) hemolyzed EGFR (test code = 117 mL/min/1.[place] [address]-9) NOT ACCURATE CREATININE CLEARANCE IN PREDICTING GLOMERULAR FILTRATION RATE . ESTIMATED GFR I S NOT APPLICABLE FOR DIALYSIS PATIEN TS. GERARDO (test code = GERARDO) Attending Anesthesiologist ID - ELSA M Lab Interpretation Abnormal (test code = 08224-0) [facility] [id number] 16:33:00 Test Item Value Reference Range Interpretation Comments Protein, Total (test 5.1 See_Comment L Specime n slightly code = 7525-2) hemolyzed [Automated message] The system which generated this result transmit ty reference range : 6.0 - 8.3 gm/dL . The reference range was not u sed to interpret th is result as normal/abnormal . Albumin (test code = 2.4 g/dL 3.5-5.0 L Specime n slightly 23098-8) hemolyzed Alkaline Phosphatase 45 U/L 40-150 (test code = 6768-6) Total Bilirubin (test 0.2 mg/dL 0.2-1.2 Specim en slightly code = 1975-2) hemolyzed Sodium (test code = 138 meq/L 486-343 5532-2) Potassium (test code 2.7 meq/L 3.5-5.1 L Specime n slightly = 2823-3) hemolyzed Chloride (test code = 106 meq/L 98-107 5-0) CO2 (test code = 23 meq/L 22-29 8-9) BUN (test code = 30 mg/dL 7-21 H 3094-0) Creatinine (test code 0.67 mg/dL 0.57-1.25 Specim en slightly = 2160-0) hemolyzed Glucose (test code = 104 mg/dL 70-105 2345-7) Calcium (test code = 7.4 mg/dL 8.4-10.2 L 32887-1) AST (test code = 37 U/L 5-34 H Specimen sl ightly 1920-8) hemolyzed ALT (test code = 36 U/L 6-55 Specimen sl ightly 1742-6) hemolyzed EGFR (test code = 117 mL/min/1.[place] [address]-2) NOT ACCURATE CREATININE CLEARANCE IN PREDICTING GLOMERULAR FILTRATION RATE . ESTIMATED GFR I S NOT APPLICABLE FOR DIALYSIS PATIEN TS. GERARDO (test code = GERARDO) Attending Anesthesiologist ID - ELSA M Lab Interpretation Abnormal (test code = 85813-3) [facility] [id number] 16:33:00 Test Item Value Reference Range Interpretation Comments Protein, Total (test 5.1 See_Comment L Specime n slightly code = 7405-2) hemolyzed [Automated message] The system which generated this result transmit ty reference range : 6.0 - 8.3 gm/dL . The reference range was not u sed to interpret th is result as normal/abnormal . Albumin (test code = 2.4 g/dL 3.5-5.0 L Specime n slightly 87258-8) hemolyzed Alkaline Phosphatase 45 U/L 40-150 (test code = 6768-6) Total Bilirubin (test 0.2 mg/dL 0.2-1.2 Specim en slightly code = 1974-2) hemolyzed Sodium (test code = 138 meq/L 765-886 3666-2) Potassium (test code 2.7 meq/L 3.5-5.1 L Specime n slightly = 2823-3) hemolyzed Chloride (test code = 106 meq/L 98-107 2075-0) CO2 (test code = 23 meq/L 22-29 2027-9) BUN (test code = 30 mg/dL 7-21 H 3094-0) Creatinine (test code 0.67 mg/dL 0.57-1.25 Specim en slightly = 2160-0) hemolyzed Glucose (test code = 104 mg/dL 70-105 2345-7) Calcium (test code = 7.4 mg/dL 8.4-10.2 L 84590-4) AST (test code = 37 U/L 5-34 H Specimen sl ightly 1920-8) hemolyzed ALT (test code = 36 U/L 6-55 Specimen sl ightly 1742-6) hemolyzed EGFR (test code = 117 mL/min/1.[place] [address]-6) NOT ACCURATE CREATININE CLEARANCE IN PREDICTING GLOMERULAR FILTRATION RATE . ESTIMATED GFR I S NOT APPLICABLE FOR DIALYSIS PATIEN TS. GERARDO (test code = GERARDO) Attending Anesthesiologist ID - ELSA M Lab Interpretation Abnormal (test code = 60017-2) [facility] MET[facility]OL[facility] [id number] 16:33:00 Test Item Value Reference Range Interpretation Comments TOTAL PROTEIN 5.1 gm/dL 6.0-8.3 L Specimen sligh tly (BEAKER) (test code = hemoly zed 770) ALBUMIN (BEAKER) 2.4 g/dL 3.5-5.0 L Specimen sl ightly (test code = 1145) hemolyzed ALKALINE PHOSPHATASE 45 U/L 40-150 (BEAKER) (test code = 346) BILIRUBIN TOTAL 0.2 mg/dL 0.2-1.2 Specimen sli ghtly (BEAKER) (test code = hemoly zed 377) SODIUM (BEAKER) (test 138 meq/L 136-145 code = 381) POTASSIUM (BEAKER) 2.7 meq/L 3.5-5.1 L Specimen slightly (test code = 379) hemolyzed CHLORIDE (BEAKER) 106 meq/L 98-107 (test code = 382) CO2 (BEAKER) (test 23 meq/L 22-29 code = 355) BLOOD UREA NITROGEN 30 mg/dL 7-21 H (BEAKER) (test code = 354) CREATININE (BEAKER) 0.67 mg/dL 0.57-1.25 Specimen slightly (test code = 358) hemolyzed GLUCOSE RANDOM 104 mg/dL 70-105 (BEAKER) (test code = 652) CALCIUM (BEAKER) 7.4 mg/dL 8.4-10.2 L (test code = 697) AST (SGOT) (BEAKER) 37 U/L 5-34 H Specimen slightly (test code = 353) hemolyzed ALT (SGPT) (BEAKER) 36 U/L 6-55 Specimen slightly (test code = 347) hemolyzed EGFR (BEAKER) (test 117 ESTIMATE D GFR IS code = 1092) mL/min/1.73 sq NOT ACCURA TE m CREATININE CLEARANCE IN PREDICTING GLOMERULAR FILTRATION RATE . ESTIMATED GFR I S NOT APPLICABLE FOR DIALYSIS PATIEN TS. Attending Anesthesiologist ID - ELSA [facility] W/PLT COUNT & AUTO [id number] 16:15:00 Test Item Value Reference Range Interpretation Comments WHITE BLOOD CELL COUNT (BEAKER) 6.0 K/ L 3.5-10.5 (test code = 775) RED BLOOD CELL COUNT (BEAKER) 1.39 M/ L 4.63-6.08 L (test code = 761) HEMOGLOBIN (BEAKER) (test code = 4.4 GM/DL 13.7-17.5 LL 410) HEMATOCRIT (BEAKER) (test code = 13.6 % 40.1-51.0 L 411) MEAN CORPUSCULAR VOLUME (BEAKER) 97.8 fL 79.0-92.2 H (test code = 753) MEAN CORPUSCULAR HEMOGLOBIN 31.7 pg 25.7-32.2 (BEAKER) (test code = 751) MEAN CORPUSCULAR HEMOGLOBIN CONC 32.4 GM/DL 32.3-36.5 (BEAKER) (test code = 752) RED CELL DISTRIBUTION WIDTH 15.6 % 11.6-14.4 H (BEAKER) (test code = 412) PLATELET COUNT (BEAKER) (test 275 K/CU MM 150-450 code = 756) MEAN PLATELET VOLUME (BEAKER) 11.4 fL 9.4-12.4 (test code = 754) NUCLEATED RED BLOOD CELLS 0 /100 WBC 0-0 (BEAKER) (test code = 413) NEUTROPHILS RELATIVE PERCENT 77 % (BEAKER) (test code = 429) LYMPHOCYTES RELATIVE PERCENT 6 % (BEAKER) (test code = 430) MONOCYTES RELATIVE PERCENT 14 % (BEAKER) (test code = 431) EOSINOPHILS RELATIVE PERCENT 3 % (BEAKER) (test code = 432) BASOPHILS RELATIVE PERCENT 0 % (BEAKER) (test code = 437) NEUTROPHILS ABSOLUTE COUNT 4.58 K/ L 1.78-5.38 (BEAKER) (test code = 670) LYMPHOCYTES ABSOLUTE COUNT 0.35 K/ L 1.32-3.57 L (BEAKER) (test code = 414) MONOCYTES ABSOLUTE COUNT (BEAKER) 0.81 K/ L 0.30-0.82 (test code = 415) EOSINOPHILS ABSOLUTE COUNT 0.18 K/ L 0.04-0.54 (BEAKER) (test code = 416) BASOPHILS ABSOLUTE COUNT (BEAKER) 0.01 K/ L 0.01-0.08 (test code = 417) IMMATURE GRANULOCYTES-RELATIVE 1 % 0-1 PERCENT (BEAKER) (test code = 2801) [id number] 16:12:00 Test Item Value Reference Interpretation Comments Range Protime (test code = 15.8 See_Comment H [Autom ated 5902-2) message] The system which generated this result transmitted reference range : 11.9 - 14.2 seconds. The reference range was not used to interpret this result as normal/abnormal . INR (test code = 1.30 See_Comment [Automated 6301-6) message] The system which generated this result transmitted reference range : <=5.90. The reference range was not used to interpret this result as normal/abnormal . GERARDO (test code = Effective 10/13/2018: GERARDO) PT Reference Range ChangeNew: 11.9-14.2 Previous: 11.7-14.7 RECOMMENDED COUMADIN/WARFARIN INR THERAPY RANGESSTANDARD DOSE: 2.0-3.0 Includes: PROPHYLAXIS for venous thrombosis, systemic embolization; TREATMENT for venous thrombosis and/or pulmonary embolus.HIGH RISK: Target INR is 2.5-3.5 for patients wiht mechanical heart valves. Lab Interpretation Abnormal (test code = 00820-2) [facility] ([facility]2020-07-16 16:12:00 Test Item Value Reference Range Interpretation Comments PTT (test code = 78254-0) 30.7 See_Comment [ Automated message] The system [employer] generated this result transmitted ref erence range: 22.5 - 3 6.0 seconds. The re ference range was not u sed to interpret this result as normal/abnor mal. Lab Interpretation (test Normal code = 99971-8) [facility] CampusPT/[id number] 16:12:00 Test Item Value Reference Interpretation Comments Range Protime (test code = 15.8 See_Comment H [Autom ated 5902-2) message] The system which generated this result transmitted reference range : 11.9 - 14.2 seconds. The reference range was not used to interpret this result as normal/abnormal . INR (test code = 1.30 See_Comment [Automated 6301-6) message] The system which generated this result transmitted reference range : <=5.90. The reference range was not used to interpret this result as normal/abnormal . GERARDO (test code = Effective 10/13/2018: GERARDO) PT Reference Range ChangeNew: 11.9-14.2 Previous: 11.7-14.7 RECOMMENDED COUMADIN/WARFARIN INR THERAPY RANGESSTANDARD DOSE: 2.0-3.0 Includes: PROPHYLAXIS for venous thrombosis, systemic embolization; TREATMENT for venous thrombosis and/or pulmonary embolus.HIGH RISK: Target INR is 2.5-3.5 for patients wiht mechanical heart valves. Lab Interpretation Abnormal (test code = 08300-8) [facility] ([facility]2020-07-16 16:12:00 Test Item Value Reference Range Interpretation Comments PTT (test code = 21078-0) 30.7 See_Comment [ Automated message] The system [employer] generated this result transmitted ref erence range: 22.5 - 3 6.0 seconds. The re ference range was not u sed to interpret this result as normal/abnor mal. Lab Interpretation (test Normal code = 19837-1) [facility] CampusPT/[id number] 16:12:00 Test Item Value Reference Interpretation Comments Range Protime (test code = 15.8 See_Comment H [Autom ated 5902-2) message] The system which generated this result transmitted reference range : 11.9 - 14.2 seconds. The reference range was not used to interpret this result as normal/abnormal . INR (test code = 1.30 See_Comment [Automated 6301-6) message] The system which generated this result transmitted reference range : <=5.90. The reference range was not used to interpret this result as normal/abnormal . GERARDO (test code = Effective 10/13/2018: GERARDO) PT Reference Range ChangeNew: 11.9-14.2 Previous: 11.7-14.7 RECOMMENDED COUMADIN/WARFARIN INR THERAPY RANGESSTANDARD DOSE: 2.0-3.0 Includes: PROPHYLAXIS for venous thrombosis, systemic embolization; TREATMENT for venous thrombosis and/or pulmonary embolus.HIGH RISK: Target INR is 2.5-3.5 for patients wiht mechanical heart valves. Lab Interpretation Abnormal (test code = 88451-3) [facility]2020-07-16 16:12:00 Test Item Value Reference Range Interpretation Comments PTT (test code = 32870-2) 30.7 See_Comment [ Automated message] The system [employer] generated this result transmitted ref erence range: 22.5 - 3 6.0 seconds. The re ference range was not u sed to interpret this result as normal/abnor mal. Lab Interpretation (test Normal code = 48847-3) [facility] CampusPT/[id number] 16:12:00 Test Item Value Reference Interpretation Comments Range Protime (test code = 15.8 See_Comment H [Autom ated 5902-2) message] The system which generated this result transmitted reference range : 11.9 - 14.2 seconds. The reference range was not used to interpret this result as normal/abnormal . INR (test code = 1.30 See_Comment [Automated 6301-6) message] The system which generated this result transmitted reference range : <=5.90. The reference range was not used to interpret this result as normal/abnormal . GERARDO (test code = Effective 10/13/2018: GERARDO) PT Reference Range ChangeNew: 11.9-14.2 Previous: 11.7-14.7 RECOMMENDED COUMADIN/WARFARIN INR THERAPY RANGESSTANDARD DOSE: 2.0-3.0 Includes: PROPHYLAXIS for venous thrombosis, systemic embolization; TREATMENT for venous thrombosis and/or pulmonary embolus.HIGH RISK: Target INR is 2.5-3.5 for patients wiht mechanical heart valves. Lab Interpretation Abnormal (test code = 40916-9) [facility]2020-07-16 16:12:00 Test Item Value Reference Range Interpretation Comments PTT (test code = 18942-9) 30.7 See_Comment [ Automated message] The system [employer] generated this result transmitted ref erence range: 22.5 - 3 6.0 seconds. The re ference range was not u sed to interpret this result as normal/abnor mal. Lab Interpretation (test Normal code = 63099-1) [facility] CampusPT/[id number] 16:12:00 Test Item Value Reference Interpretation Comments Range Protime (test code = 15.8 See_Comment H [Autom ated 5902-2) message] The system which generated this result transmitted reference range : 11.9 - 14.2 seconds. The reference range was not used to interpret this result as normal/abnormal . INR (test code = 1.30 See_Comment [Automated 6301-6) message] The system which generated this result transmitted reference range : <=5.90. The reference range was not used to interpret this result as normal/abnormal . GERARDO (test code = Effective 10/13/2018: GERARDO) PT Reference Range ChangeNew: 11.9-14.2 Previous: 11.7-14.7 RECOMMENDED COUMADIN/WARFARIN INR THERAPY RANGESSTANDARD DOSE: 2.0-3.0 Includes: PROPHYLAXIS for venous thrombosis, systemic embolization; TREATMENT for venous thrombosis and/or pulmonary embolus.HIGH RISK: Target INR is 2.5-3.5 for patients wiht mechanical heart valves. Lab Interpretation Abnormal (test code = 71602-7) [facility] ([facility]2020-07-16 16:12:00 Test Item Value Reference Range Interpretation Comments PTT (test code = 60157-9) 30.7 See_Comment [ Automated message] The system [employer] generated this result transmitted ref erence range: 22.5 - 3 6.0 seconds. The re ference range was not u sed to interpret this result as normal/abnor mal. Lab Interpretation (test Normal code = 50706-8) [facility] CampusPROTHROMBIN TIME/[id number] 16:12:00 Test Item Value Reference Range Interpretation Comments PROTIME (TIFFANIE) 15.8 seconds 11.9-14.2 H (test code = 759) INR (TIFFANIE) (test 1.30 See_Comment [Automat ed message] code = 370) The system [employer] generated this result transmitted ref erence range: <=5.90. The reference range was not used to int erpret this result as normal/abnormal . Effective 10/13/2018: PT Reference Range ChangeNew: 11.9-14.2 Previous: 11.7- 14.7RECOMMENDED COUMADIN/WARFARIN INR THERAPY RANGESSTANDARD DOSE: 2.0-3.0 Includes: PROPHYLAXIS for venous thrombosis, systemic embolization; TREATMENT for venous thrombosis and/or pulmonary embolus.HIGH RISK: Target INR is2.5-3.5 for patients wiht mechanical heart valves.[id number] 16:12:00 Test Item Value Reference Range Interpretation Comments PARTIAL THROMBOPLASTIN TIME 30.7 seconds 22.5-36.0 (BEALKA) (test code = 760)
[2021-08-24] MEDS ORDERED: ASPIRIN 81 MG CHEWABLE TABLET ONE (13:11)
[2021-08-24 13:46] LABS: Absolute Lymphocytes (CBC) 0.7 K/uL (0.7-4.9); Hematocrit 32.8 % (39.6-49.0); MPV 8.7 fL (7.6-11.3); RBC Red Blood Cell Count 3.42 M/uL (4.33-5.43)
[2021-08-24 13:50] LABS: Protime INR 1.09
--- NOTE | 2021-08-24 13:58 | RAD REPORT ---
EXAM DESCRIPTION: Mak Single View08/24/2021 1:28 pm CLINICAL HISTORY: Syncope COMPARISON: None FINDINGS: Calcified lung granulomas. The lungs appear clear of acute infiltrate. The heart is mildl y enlarged. Postsurgical changes involve the chest. IMPRESSION: No acute abnormalities displayed
[2021-08-24 14:05] LABS: Albumin 3.4 g/dL (3.4-5.0); Bilirubin Direct 0.1 mg/dL (0-0.2); Bilirubin Total 0.4 mg/dL (0.2-1.0); Magnesium 2.1 mg/dL (1.8-2.4); Potassium 4.5 mmol/L (3.5-5.1); Protein, Total 7.2 g/dL (6.4-8.2)
--- NOTE | 2021-08-24 15:01 | RAD REPORT ---
EXAM DESCRIPTION: CT - Head Brain Wo Cont - 08/24/2021 2:46 pm CLINICAL HISTORY: Syncope COMPARISON: None. TECHNIQUE: Computed axial tomography of the head was obtained. IV contrast was not requested. All CT scans are performed using dose optimization technique as appropriate and may include automated exposure control or mA/KV adjustment according to patient size. FINDINGS: An intracranial bleed is not seen . The ventricles are normal in caliber. No significant hypodense areas within the brain No extra-axial fluid collection is noted. Fluid within the sinuses/ mastoids is not seen. IMPRESSION: No acute intracranial abnormality is seen. If patient's symptoms persist MRI of the bra in would be recommended.
[2021-08-24 15:36] LABS: Urine Blood 2+ (Negative); Urine Glucose Negative (Negative); Urine Protein Trace (Negative); Urine Specific Gravity 1.015 (1.005-1.030)
--- NOTE | 2021-08-24 17:03 | EDPHYS ---
Physician Documentation [facility] Name: Juan Antonio Mooney Age: 76 yrs Sex: Male : 1945 Arrival Date: 08/24/2021 Time: 12:51 Bed 4 Private MD: ED Physician Frandy Galvin HPI: 08/24 13:04 This 76 yrs old Male presents to ER via EMS with complaints of Syncope. pm1 13:04 The patient has experienced syncope, became unresponsive. Onset: The symptoms/episode pm1 began/occurred this morning. Duration: The patient has had multiple episodes, 2 episodes. Context: the episode(s) was witnessed, by family, son, and by EMS. Associated injury: The patient did not suffer any apparent associated injury. Associated signs and symptoms: Pertinent positives: dizziness, Pertinent negatives: chest pain, nausea, shortness of breath, vomiting, weakness. Current symptoms: Currently, the patient is not experiencing any symptoms. The patient has been recently seen by a physician: with different complaint(s), Prostate biopsy. Historical: - Allergies: 12:55 Tramadol HCl; ph - Home Meds: 12:55 acetaminophen 500 mg Oral tab 1 tabs [Active]; aspirin 81 mg Oral chew 1 tab once daily ph [Active]; atorvastatin 20 mg oral tab 1 tab once daily [Active]; baclofen 10 mg Oral tab 1 tab twice a day [Active]; bupropion HCl 300 mg Oral Tb24 1 tab once daily [Active]; folic acid 1 mg Oral tab 1 tab once daily [Active]; naproxen sodium 220 mg Oral cap 1 cap every 12 hours [Active]; nitroglycerin 0.4 mg SL subl 1 tab every 5 minutes [Active]; tamsulosin 0.4 mg oral cap 1 cap once daily [Active]; - Immunization history:: Adult Immunizations unknown. - Social history:: Smoking status: Patient denies any tobacco usage or history of. Patient/guardian denies using alcohol. ROS: 13:04 Constitutional: Negative for fever, chills, and weight loss, Cardiovascular: Negative pm1 for chest pain, palpitations, and edema, Respiratory: Negative for shortness of breath, cough, wheezing, and pleuritic chest pain, Abdomen/GI: Negative for abdominal pain, nausea, vomiting, diarrhea, and constipation, Back: Negative for injury and pain, : Negative for injury, bleeding, discharge, and swelling, MS/Extremity: Negative for injury and deformity, Skin: Negative for injury, rash, and discoloration. 13:04 Neuro: Positive for syncope. 13:04 All other systems are negative. Exam: 13:04 Abdomen/GI: Exam negative for acute changes, Inspection: abdomen appears normal, pm1 Palpation: abdomen is soft and non-tender, in all quadrants. 13:04 Constitutional: This is a well developed, well nourished patient who is awake, alert, and in no acute distress. Head/Face: Normocephalic, atraumatic. 13:04 Back: No spinal tenderness. No costovertebral tenderness. Full range of motion. Skin: Warm, dry with normal turgor. Normal color with no rashes, no lesions, and no evidence of cellulitis. MS/ Extremity: Pulses equal, no cyanosis. Neurovascular intact. Full, normal range of motion. 13:04 Eyes: Exam is negative for acute changes, Extraocular movements: no acute changes, Conjunctiva: no acute changes, no injection. 13:04 ENT: 13:04 ENT: Mouth: Lips: dry, Oral mucosa: dry. 13:04 Cardiovascular: Exam negative for Rate: normal, Rhythm: regular, Pulses: no pulse deficits are appreciated, Heart sounds: normal, normal S1and S2. 13:04 Respiratory: Exam negative for acute changes, respiratory distress, shortness of breath, Breath sounds: are clear throughout. 13:04 Neuro: Exam negative for acute changes, Orientation: is normal, Mentation: is normal, Motor: is normal, moves all fours, strength is normal, strength is 5/5 in all extremities. Vital Signs: 12:51 BP 81 / 64; Pulse 61; Resp 18; Temp 97.2; Pulse Ox 100% on R/A; Weight 66.68 kg; Height ph 5 ft. 7 in. (170.18 cm); 13:22 BP 104 / 67; Pulse 59; Resp 18; Pulse Ox 100% on R/A; ph 14:20 BP 107 / 79 RA Supine; Pulse 61; Resp 16; Pulse Ox 98% ; dh3 14:22 BP 107 / 68 RA Sitting; Pulse 68; Resp 17; Pulse Ox 98% on R/A; dh3 14:24 BP 105 / 68 RA Standing; Pulse 70; Resp 18; Pulse Ox 99% on R/A; dh3 15:36 BP 127 / 72; Pulse 65; Resp 16; Pulse Ox 100% on R/A; ph 12:51 Body Mass Index 23.02 (66.68 kg, 170.18 cm) ph MDM: 13:01 Patient medically screened. pm1 16:15 Data reviewed: vital signs. Data interpreted: Pulse oximetry: on room air is 100 %. pm1 Interpretation: normal. 17:02 Counseling: I had a detailed discussion with the patient and/or guardian regarding: the pm1 historical points, exam findings, and any diagnostic results supporting the discharge/admit diagnosis, lab results, radiology results, the need for outpatient follow up, to return to the emergency department if symptoms worsen or persist or if there are any questions or concerns that arise at home. 17:02 Differential Diagnosis: cardiac arrhythmia, cerebrovascular accident, vasovagal pm1 episode, Dehydration, Orthostatic hypotension. 17:40 ED course: Patient ambulating around the room without any dizziness present after pm1 rehydration with IV fluids. 08/24 12:58 Order name: COVID-19 SARS RT PCR (Document "Date of Onset" if Symptomatic); Complete pm1 Time: 15:32 08/24 13:43 Order name: Basic Metabolic Panel; Complete Time: 14:17 EDMS 08/24 13:43 Order name: Liver (Hepatic) Function; Complete Time: 14:17 EDMS 08/24 13:43 Order name: NT PRO-BNP; Complete Time: 14:17 EDMS 08/24 13:43 Order name: Magnesium; Complete Time: 14:17 EDMS 08/24 13:43 Order name: CBC with Automated Diff; Complete Time: 13:49 EDMS 08/24 13:43 Order name: Protime (+INR); Complete Time: 13:51 EDMS 08/24 12:57 Order name: EKG; Complete Time: 14:35 pm08/24 12:57 Order name: Cardiac monitoring; Complete Time: 13:02 pm08/24 12:57 Order name: EKG - Nurse/Tech; Complete Time: 13:02 pm1 08/24 12:57 Order name: IV Saline Lock; Complete Time: 13:02 pm08/24 12:57 Order name: Labs collected and sent; Complete Time: 13:21 pm1 08/24 12:57 Order name: O2 Per Protocol; Complete Time: 13:02 pm1 08/24 12:57 Order name: O2 Sat Monitoring; Complete Time: 13:02 pm1 08/24 12:57 Order name: Orthostatics; Complete Time: 14:31 pm1 08/24 13:05 Order name: Chest Single View; Complete Time: 14:17 EDMS 08/24 13:52 Order name: CT Head Brain wo Cont; Complete Time: 15:07 pm1 08/24 15:36 Order name: Urine Dipstick-Ancillary; Complete Time: 15:50 EDMS Administered Medications: 13:12 Drug: Aspirin Chewable Tablet 324 mg Route: PO; vg1 13:30 Follow up: Response: No adverse reaction ph 15:36 Drug: NS 0.9% 500 ml Route: IV; Rate: bolus; Site: left antecubital; ph 17:00 Follow up: Response: No adverse reaction; IV Status: Completed infusion; IV Intake: ph 500ml Disposition Summary: 08/24/21 17:03 Discharge Ordered Location: Home pm1 Problem: new pm1 Symptoms: have improved pm1 Condition: Stable pm1 Diagnosis - Dehydration pm1 - Orthostatic hypotension pm1 Followup: pm1 - With: Emergency Department - When: As needed - Reason: Worsening of condition Followup: pm1 - With: Private Physician - When: 2 - 3 days - Reason: Recheck today's complaints, Continuance of care, Re-evaluation by your physician Discharge Instructions: - Discharge Summary Sheet pm1 - Dehydration, Elderly pm1 - Orthostatic Hypotension pm1 - Syncope pm1 - Rehydration, Elderly pm1 Forms: - Medication Reconciliation Form pm1 - Thank You Letter pm1 - Antibiotic Education pm1 - Prescription Opioid Use pm1 Addendum: 08/29/2021 18:59 Co-signature as Attending Physician, Frandy Galvin MD I agree with the assessment and c shah plan of care. Signatures: Dispatcher [employer] Frandy Guerrier MD MD cha Hall, Patricia, RN RN ph Brandon Franco, TYE LINING MACHINE OPERATOR pm1 Liz Nayak, RN RN vg1 Corrections: (The following items were deleted from the chart) 08/24 14:44 14:35 Chest Single View+RAD.RAD.BRZ ordered. EDAK EDMS 14:45 14:35 BASIC METABOLIC PANEL+C.LAB.BRZ ordered. EDMS EDMS 14:45 14:35 CBC+H.LAB.BRZ ordered. EDMS EDMS 14:45 14:35 HEPATIC FUNCTION+C.LAB.BRZ ordered. EDMS EDMS 14:45 14:35 MAGNESIUM+C.LAB.BRZ ordered. EDMS EDMS 14:45 14:35 PROBNP+C.LAB.BRZ ordered. EDMS EDMS 14: 14:35 Troponin High Sensitivity+C.LAB.BRZ ordered. EDMS EDMS 14:46 14:35 PROTIME (+INR)+COAG.LAB.BRZ ordered. EDMS EDMS
--- NOTE | 2021-08-24 17:03 | ER ---
Nurse's Notes [facility] Name: Juan Antonio Mooney Age: 76 yrs Sex: Male : 1945 Arrival Date: 08/24/2021 Time: 12:51 Bed 4 Private MD: Diagnosis: Dehydration;Orthostatic hypotension Presentation: 08/24 12:51 Chief complaint: EMS states: Pt had a syncopal episode while out fishing, was witnessed ph and bystanders caught pt so he did not fall, Pt was found to be pale, diaphoretic, BP 120/80, HR 90, pt began to feel better and initially refused transport, then had another syncopal episode witnessed by EMS, 20G LAC, 200mL NS given, BGL 154. Coronavirus screen: Vaccine status: Patient reports receiving the 2nd dose of the covid vaccine. Ebola Screen: No symptoms or risks identified at this time. Initial Sepsis Screen: Does the patient meet any 2 criteria? No. Patient's initial sepsis screen is negative. Does the patient have a suspected source of infection? No. Patient's initial sepsis screen is negative. Risk Assessment: Do you want to hurt yourself or someone else? Patient reports no desire to harm self or others. Onset of symptoms was August 24, 2021. 12:51 Method Of Arrival: EMS: [facility] 12:51 Acuity: EVY 2 Triage Assessment: 13:05 General: Appears in no apparent distress. comfortable, slender, Behavior is calm, ph cooperative, appropriate for age, Denies fever, feeling ill. Pain: Denies pain. Neuro: Level of Consciousness is awake, alert, obeys commands, Oriented to person, place, time, situation, Reports blurred vision dizziness, a syncopal episode. Cardiovascular: Reports lightheadedness, syncope, Denies chest pain, Capillary refill < 3 seconds in bilateral fingers Patient's skin is warm and dry. Rhythm is sinus bradycardia. Respiratory: Airway is patent Respiratory effort is even, unlabored, Respiratory pattern is regular, symmetrical. GI: No signs and/or symptoms were reported involving the gastrointestinal system. Derm: Skin is intact, Skin is pink, warm \\T\\ dry. Musculoskeletal: Circulation, motion, and sensation intact. Range of motion: intact in all extremities. Historical: - Allergies: 12:55 Tramadol HCl; ph - Home Meds: 12:55 acetaminophen 500 mg Oral tab 1 tabs [Active]; aspirin 81 mg Oral chew 1 tab once daily ph [Active]; atorvastatin 20 mg oral tab 1 tab once daily [Active]; baclofen 10 mg Oral tab 1 tab twice a day [Active]; bupropion HCl 300 mg Oral Tb24 1 tab once daily [Active]; folic acid 1 mg Oral tab 1 tab once daily [Active]; naproxen sodium 220 mg Oral cap 1 cap every 12 hours [Active]; nitroglycerin 0.4 mg SL subl 1 tab every 5 minutes [Active]; tamsulosin 0.4 mg oral cap 1 cap once daily [Active]; - Immunization history:: Adult Immunizations unknown. - Social history:: Smoking status: Patient denies any tobacco usage or history of. Patient/guardian denies using alcohol. Screenin:04 Abuse screen: Denies threats or abuse. Denies injuries from another. Nutritional ph screening: No deficits noted. Tuberculosis screening: No symptoms or risk factors identified. Fall Risk None identified. Assessment: 13:15 General: SEE TRIAGE ASSESSMENT. ph 13:22 Reassessment: Patient appears in no apparent distress at this time. Pt states reports ph that dizziness is improving. 14:33 Reassessment: Patient appears in no apparent distress at this time. Patient and/or ph family updated on plan of care and expected duration. Pain level reassessed. Patient is alert, oriented x 3, equal unlabored respirations, skin warm/dry/pink. 15:37 Reassessment: Patient appears in no apparent distress at this time. Patient and/or ph family updated on plan of care and expected duration. Pain level reassessed. Patient is alert, oriented x 3, equal unlabored respirations, skin warm/dry/pink. 16:30 Reassessment: Patient appears in no apparent distress at this time. Patient and/or ph family updated on plan of care and expected duration. Pain level reassessed. Patient is alert, oriented x 3, equal unlabored respirations, skin warm/dry/pink. 17:30 Reassessment: Patient appears in no apparent distress at this time. Patient and/or ph family updated on plan of care and expected duration. Pain level reassessed. Patient is alert, oriented x 3, equal unlabored respirations, skin warm/dry/pink. BP has improved after fluid bolus, pt up to ambulate at bedside, gait is steady and pt denies dizziness, " I just messed up and let myself get dehydrated." Pt d/c home w/ . Vital Signs: 12:51 BP 81 / 64; Pulse 61; Resp 18; Temp 97.2; Pulse Ox 100% on R/A; Weight 66.68 kg; Height ph 5 ft. 7 in. (170.18 cm); 13:22 BP 104 / 67; Pulse 59; Resp 18; Pulse Ox 100% on R/A; ph 14:20 BP 107 / 79 RA Supine; Pulse 61; Resp 16; Pulse Ox 98% ; dh3 14:22 BP 107 / 68 RA Sitting; Pulse 68; Resp 17; Pulse Ox 98% on R/A; dh3 14:24 BP 105 / 68 RA Standing; Pulse 70; Resp 18; Pulse Ox 99% on R/A; dh3 15:36 BP 127 / 72; Pulse 65; Resp 16; Pulse Ox 100% on R/A; ph 12:51 Body Mass Index 23.02 (66.68 kg, 170.18 cm) ph ED Course: 12:51 Patient arrived in ED. ph 12:55 Triage completed. ph 12:56 Brandon Franco NP is PHCP. pm1 12:56 Frandy Galvin MD is Attending Physician. pm1 13:04 Arm band placed on Patient placed in an exam room, on a stretcher, on forepart laster, ph on pulse oximetry. 13:05 Patient has correct armband on for positive identification. Bed in low position. Call ph light in reach. Side rails up X 1. bath steward/stewardess on. Pulse ox on. NIBP on. 13:07 Dolores Hood, RN is Primary Nurse. ph 13:29 Chest Single View In Process Unspecified. EDMS 14:33 Maintain EMS IV. Dressing intact. Good blood return noted. Site clean \\T\\ dry. Gauge \\T\\ ph site: 18 LAC. IV is patent, with fluids infusing freely, with good blood return. 14:48 CT Head Brain wo Cont In Process Unspecified. EDMS 17:42 IV discontinued, intact, bleeding controlled, No redness/swelling at site. Pressure ab2 dressing applied. 17:42 No provider procedures requiring assistance completed. ab2 Administered Medications: 13:12 Drug: Aspirin Chewable Tablet 324 mg Route: PO; vg1 13:30 Follow up: Response: No adverse reaction ph 15:36 Drug: NS 0.9% 500 ml Route: IV; Rate: bolus; Site: left antecubital; ph 17:00 Follow up: Response: No adverse reaction; IV Status: Completed infusion; IV Intake: ph 500ml Intake: 17:00 IV: 500ml; Total: 500ml. ph Outcome: 17:03 Discharge ordered by MD. pm1 17:42 Discharged to home ambulatory, with family. ab2 17:42 Condition: good 17:42 Discharge instructions given to patient, family, Instructed on discharge instructions, follow up and referral plans. Demonstrated understanding of instructions, follow-up care. 17:43 Patient left the ED. ab2 Signatures: Dispatcher [employer] Dolores Ariza, RN RN Brandon Franco, TYE CLOTH WORKER pm1 Yecenia Garner 3 Liz Nayak RN RN vg1 Mao Hendrix ab2 Corrections: (The following items were deleted from the chart) 17:42 17:42 Assist provider with bone marrow aspiration ab2 ab2
[2021-08-24 18:37] VITALS: TEMP 97.2
[2021-08-24 18:44] VITALS: BP 127/72; O2SAT 100
--- NOTE | 2021-08-26 09:42 | EKG ---
Test Date: 2021-08-24 Test Time: 12:51:04 Director Of Corporate Sponsorships: MEASUREMENT RESULTS: Intervals: Rate: 61 ID: [id number] QRSD: 128 QT: 456 QTc: 459 Irma: P: 47 ID: [id number] QRS: -44 T: 16 INTERPRETIVE STATEMENTS: Normal sinus rhythm Left axis deviation Right bundle branch block Voltage criteria for left ventricular hypertrophy Abnormal ECG No previous ECG available for comparison Electronically Signed On 08-26-21 09:36:07 CDT by Andrade Villela
== END 2021-08-24 17:43 | disposition home or self-care (01) ==
LOC: ER 12:49
DX: I95.1 Orthostatic hypotension (principal); E86.0 Dehydration; Z20.822 Contact with and (suspected) exposure to COVID-19
CPT/HCPCS: 93005; 85025; 80048; 36415; 83735; 85610; 80076; 81003; 84484; 83880; 70450; 71045; 96360; 99284; U0003

== ENCOUNTER 2022-06-09 20:30 | Inpatient (IN) | payer OTHER ==
--- OUTSIDE RECORDS SUMMARY | 2022-06-09 20:34 | XMS REPORT | Clinical Summary ---
:1945 Author Organization [facility] MD Schrader 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 He chapman s not want to take op ioid medications due to addiction poten tial Medications Medication Sig Dispensed Refills Start End Date Status Date atorvastatin Take 20 mg by 0 Act francoise (LIPITOR) 20 mg mouth at 9 tablet bedtime. baclofen TAKE ONE (1) 0 Active (LIORESAL) 10 mg TABLET BY MOUTH 2 tablet 2 TIMES DAILY NEEDED FOR MUSCLE SPASMS OR PAIN. buPROPion Take 300 mg by 0 Activ e (WELLBUTRIN XL) mouth daily. 300 mg 24 hr tablet fluoride, sodium, PLACE A THIN 0 Active (DENTAGEL) 1.1% RIBBON IN CUSTOM 2 dental gel TRAYS TWICE DAILY. AFTER INSERTING TRAYS IN MOUTH, BITE ON THEM TO CREATE A PUMPING ACTION. KEEP IN THE MOUTH folic acid Take 1 mg by 0 Active (FOLVITE) 1 mg mouth daily. 8 tablet mirtazapine Take 30 mg by 0 Acti ve (REMERON) 30 mg mouth at tablet bedtime. nitroglycerin Place 0.4 mg 0 Act francoise (NITROSTAT) 0.4 mg under the SL tablet tongue. tamsulosin TAKE ONE (1) 0 Active (FLOMAX) 0.4 mg 24 CAPSULE(S) BY 1 hr capsule MOUTH TWICE A DAY. acetaminophen Take 500 mg by 0 A ctive (TYLENOL) 500 mg mouth every 6 tablet (six) hours as needed. dexamethasone Take 2 tablets 0 A ctive (DECADRON) 4 mg (8 mg) by mouth 2 tablet twice daily for 3 days. Take one day prior to, the day of and the day after chemotherapy lactulose Take 20 g by 0 Active (CHRONULAC) 10 mouth as needed. 2 gram/15 mL solution levothyroxine daily. 0 Active (SYNTHROID, 2 LEVOTHROID) 25 mcg tablet lidocaine every 6 (six) 0 Active (XYLOCAINE) 20 hours as needed. 2 mg/mL (2%) viscous solution lidocaine-prilocai APPLY A 0 A ctive ne (EMLA) 2.5-2.5% DIME-SIZED 2 cream AMOUNT TO PORT-A-CATH SITE AND COVER WITH OCCLUSIVE DRESSING ONE HOUR BEFORE PORT ACCESS. OLANZapine TAKE 1 TABLET BY 0 Ac tive (ZyPREXA) 5 mg MOUTH DAILY FOR 2 tablet 4 DAYS, STARTING ON DAY 1 OF EACH CHEMOTHERAPY TREATMENT ondansetron Take one tablet 0 Ac tive (ZOFRAN) 8 mg by mouth every 8 2 tablet hours as needed for nausea. traMADol (ULTRAM) as needed. 0 A ctive 50 mg tablet 2 tamsulosin Take 0.4 mg by 0 Acti ve (FLOMAX) 0.4 mg 24 mouth daily. 1 hr capsule ferrous sulfate Take 1 tablet 0 Active 325 mg (65 mg (325 mg) by elemental iron per mouth. tablet) tablet hydroxyzine HCl Take 1 tablet 0 Active (ATARAX) 25 mg (25 mg) by tablet mouth. loratadine Take 1 tablet 0 Activ e (CLARITIN) 10 mg (10 mg) by mouth tablet daily. For 5 days with chemotherapy polyethylene Take 17 g by 0 Acti ve glycol (GLYCOLAX) mouth. 17 gram/dose powder aspirin 81 mg cap 0 03/12/20 Di scontinued 22 (Therapy completed) brimonidine 0.2% PLACE 1 DROP 0 10/03/19 Discontinued ophthalmic INTO THE RIGHT 1 22 (The rapy solution EYE 2 TIMES complete d) DAILY FOR 7 DAYS acetaminophen-code TAKE ONE (1) TO 0 03/12 Discontinued ine (TYLENOL #3) 2 TABLETS BY 1 22 (Other ) 300 mg-30 mg MOUTH EVERY 6 tablet HOURS NEEDED FOR PAIN. multivitamin Take by mouth. 0 03/12/20 Di scontinued (THERAGRAN) tablet 22 ( Therapy completed) diclofenac 0 10/03/19 Discontin ued (VOLTAREN) 0.1% 1 22 (The rapy ophthalmic completed ) solution furosemide (LASIX) Take 20 mg by 0 0 Discontinued 20 mg tablet mouth. 22 (Therap y completed) gabapentin TAKE ONE (1) 0 10/03/19 Discon tinued (NEURONTIN) 100 mg CAPSULE(S) BY 2 22 (Therapy capsule MOUTH ONCE A DAY com pleted) FOR 3 DAYS , THEN 1 CAPSULE EVERY 12 HOURS FOR 3 DAYS , THEN 1 CAPSULE EVERY 8 HOURS FOR NERVE HYDROcodone-acetam Take 1 tablet by 0 /01/04 Discontinued inophen (NORCO) mouth. 22 (The rapy 7.5 mg-325 mg per co mpleted) tablet hydroxyzine HCl Take 50 mg by 0 10/04/19 Discontinued (ATARAX) 50 mg mouth. 22 tablet metoprolol TAKE ONE (1) 0 10/03/19 Discon tinued succinate (TOPROL TABLET(S) BY 1 22 (Therapy XL) 25 mg 24 hr MOUTH ONCE A c ompleted) tablet DAY. naproxen sodium Take 220 mg by 0 03/12/20 Discontinued (ALEVE) 220 MG mouth. 22 (Ther apy tablet completed) ondansetron TAKE ONE (1) 0 10/03/19 Disco ntinued (ZOFRAN-ODT) 4 mg TABLET(S) BY 1 22 (Therapy disintegrating MOUTH EVERY com pleted) tablet EIGHT HOURS NEEDED FOR NAUSEA. pantoprazole Take 40 mg by 0 10/03/19 Dis continued (PROTONIX) 40 mg mouth. 1 22 (Th erapy EC tablet completed) prednisoLONE 0 10/03/19 Discont inued acetate (PRED 1 22 (Thera py FORTE) 1% completed) ophthalmic suspension pregabalin TAKE ONE (1) 0 10/03/19 Discon tinued (LYRICA) 25 mg CAPSULE(S) BY 2 22 ( Therapy capsule MOUTH DAILY FOR comp leted) 3 DAYS, THEN 1 CAPSULE EVERY 12 HOURS FOR 3 DAYS, THEN 1 CAPSULE EVERY EIGHT HOURS. TO DISCONTIN atorvastatin Take 20 mg by 0 03/12/20 Dis continued (LIPITOR) 20 mg mouth at 22 (Dup licate tablet bedtime. order) baclofen Take 10 mg by 0 03/12/20 Discon tinued (LIORESAL) 10 mg mouth as needed. 2 22 (Duplicate tablet order) buPROPion Take 300 mg by 0 03/12/20 Disco ntinued (WELLBUTRIN XL) mouth daily. 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 Cancer Staging: Clinical stage from 02/18: Stage I (rcT0, cN1, cM0, p16+) - Signed by Joann Leone MD on 03/12/2022 Other dysphagia 05/24/2020 Bilateral hearing loss 02/03/2017 Resolved Problems Problem Noted Date Resolved Date Ulcerative oral mucositis due to antineoplastic therapy 02/1604/30/2022 Venous thrombosis due to central venous access device 202103/12/2022 Atherosclerosis of coronary artery bypass graft without 09/1504/30/2022 angina pectoris Pulmonary granuloma 04/22/2021 10/02/2021 Stage 3a chronic kidney disease 04/22/2021 10/03/19 Cervical lymphadenopathy 02/25/2021 10/02/2021 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 10/02/2021 Ulcer of duodenum 07/17/2020 10/02/2021 Gastric ulcer 07/17/2020 10/02/2021 Hypokalemia 07/17/2020 10/02/2021 Anemia 07/16/2020 10/02/2021 Dehydration 06/29/2020 10/02/2021 Nausea and vomiting 06/29/2020 10/02/2021 Mixed hyperlipidemia 04/26/2019 10/02/2021 Hypertensive heart AND renal disease 03/03/2019 Severe major depression 03/03/2019 10/02/2021 Benign prostatic hyperplasia 02/03/2017 10/02/2021 Chronic diastolic congestive heart failure 02/03/2017 10/02/2021 History of histoplasmosis 02/03/2017 10/02/2021 Sinus bradycardia 02/03/2017 10/02/2021 History of placement of stent for coronary artery disease 10/02/2021 Old myocardial infarction 09/17/2015 10/02/2021 Myocardial infarction 09/06/2015 03/12/2022 History of atypical nevus 05/18/2014 10/02/2021 Overview: Formatting of this note might be differe nt from the original. midline low back Benign essential hypertension 04/19/2014 10/02/2021 History of coronary artery bypass grafting 04/19/2014 10/02/2021 Coronary atherosclerosis 04/26/2012 10/02/2021 Right bundle branch block and left anterior fascicular block 04/26/2012 10/02/2021 Posttraumatic stress disorder 04/16/2012 10/02/2021 Encounters Date Type Specialty Care Team Description 05/22/2022 Documentation Head and Neck Troy Mirza Medical Oncology 05/20/2022 Documentation Head and Neck Troy Mirza Medical Oncology 05/05/2022 Orders Only Thoracic Serrao, Primary squamou s Medicine Gabryella cell carcinoma of base of tongue (Primary Dx) 04/30/2022 Telemedicine Head and Neck Joann Leone Primary squa mous Medical Oncology cell carcin genia of base of tongue 04/30/2022 Orders Only Head and Neck Clay, Hailey Primary squ amous Medical Oncology H, CONVENTION PLANNER cell carcin genia of base of tongue (Primary Dx) 04/23/2022 Orders Only Thoracic Serrao, Medicine Gabryella 03/12/2022 Ancillary Procedure Radiology Joann Leone Cancer 03/12/2022 Ancillary Procedure Radiology Joann Leone Cancer 03/12/2022 Office Visit Head and Neck Joann Leone Primary squa mous Medical Oncology cell carcin genia of base of tongue (Primary Dx) 03/12/2022 Documentation Thoracic Román, Moushumi Medicine 03/12/2022 Travel 03/12/2022 Orders Only Head and Neck Neha Olson, Medical Oncology PharmD 02/26/2022 Orders Only Head and Neck Clay, Hailey Primary squ amous Medical Oncology H, CONVENTION PLANNER cell carcin genia of base of tongue (Primary Dx) 02/25/2022 Telephone Head and Neck Chiquita Trejo, Surgery RN 10/03/2021 Hospital Encounter Head and Neck Juancarlos Schrader MD Squa mous cell Surgery carcinoma, NOS of oropharynx, NOS 10/03/2021 Hospital Encounter Radiation Elijah Farris Squamou s cell Oncology carcinoma, NOS of Bigg Cooper MD oropharynx, N OS 10/03/2021 Multidisciplinary Visit Head and Neck Mario Nayak, Surgery WHITEWATER RAFTING GUIDE 10/03/2021 Travel 10/02/2021 Ancillary Procedure Radiology Joann Leone Cancer 10/02/2021 Ancillary Procedure Radiology Joann Leone Cancer 10/02/2021 Office Visit Head and Neck Joann Leone Primary squa mous Medical Oncology cell carcin genia of base of tongue (Primary Dx) 10/02/2021 Documentation Head and Neck Kimberly Hernadez Medical Oncology 10/02/2021 Orders Only Head and Neck Kimberly Hernadez Primary squamo Medical Oncology cell carcin genia of base of tongue (Primary Dx) 10/02/2021 Travel 10/02/2021 Orders Only Head and Neck Joann Leone Medical Oncology 10/01/2021 Clinical Support Covid Joann Leone, Suspected COVID-19 (Primary Dx) Hillary Geronimo MA 10/01/2021 Travel 09/30/2021 Lab Requisition Matthew Lam MD Zingalis, Amy, MD 09/27/2021 NPR Patient Access Joann Leone, Services 09/20/2021 Orders Only Head and Neck Elijah Farris, Squamous mita l Medical Oncology carcinoma, NOS of oropharynx, NOS (Primary Dx) 09/19/2021 Orders Only Head and Neck Carter, Medical Oncology CANDELARIA Borges 09/19/2021 Travel after 06/09/2021 Immunizations Name Administration Dates Next Due Adenovirus 12/12/2020 Influenza (IM) Preservative Free 02/04/2021, 01/17/2020 Influenza Split High Dose Preservative 02/16/2019, 8, 02/03/2017, Free IM 01/23/2015, 02/23/2013 Influenza, Quadrivalent 02/11/2022, 02/04/2021, 01/17/2020, 01/25/2016, 01/25/2016, 02/05/2012, 02/05/2012, 02/27/2011, 02/27/2011, 03/06/2008, 03/06/2008 Moderna SARS-CoV-2 Monovalent Booster 10/15/2021 Vaccination (50 mcg/0.25 mL) Pneumococcal Conjugate 13-Valent 01/25/2016 Pneumococcal Polysaccharide 08/30/2012 Tdap 12/26/2016 Zoster Recombinant 12/12/2020 Zoster, Unspecified 12/27/2015 Surgical History Surgery Date Site/Laterality Comments CORONARY ARTERY BYPASS GRAFT August 2015 x5 SHOULDER SURGERY May 2013 CATARACT EXTRACTION, BILATERAL CORONARY STENT PLACEMENT 05/18/2015 - 05/17/2016 x 1 Medical History Medical History Date Comments Ulcer of duodenum 07/17/2020 Gastric ulcer 07/17/2020 Nausea and vomiting 06/29/2020 Pulmonary granuloma 04/22/2021 Benign essential hypertension 04/19/2014 Chronic diastolic congestive heart 02/03/2017 failure Coronary atherosclerosis 04/26/2012 Hypertensive heart AND renal 03/03/2019 disease Myocardial infarction 09/06/2015 Old myocardial infarction 09/17/2015 Right bundle branch block and left 04/26/2012 anterior fascicular block Sinus bradycardia 02/03/2017 Benign prostatic hyperplasia 02/03/2017 Dehydration 06/29/2020 History of atypical nevus 05/18/2014 Formatting of this note might be different f rom the original. 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 Venous thrombosis due to central 02/06/2022 venous access device Atherosclerosis of coronary artery 10/02/2021 bypass graft without angina pectoris Family History Medical History Relation Name Comments Liver cancer Mother Kenny Castro Relation Name Status Comments Mother Kenny Castro Social History Tobacco Use Types Packs/Day Years Used Date Smoking Tobacco: Never Smokeless Tobacco: Never Alcohol Use Standard Drinks/Week Comments Not Currently 0 (1 standard drink = 0.6 oz pure alcoho l) Sex Assigned at Date Recorded Male 09/26/2021 7:02 PM CDT Job Start Date Occupation Industry Not on file Not on file Not on file Obstetrics History Last Filed Vital Signs Vital Sign Reading Time Taken Comments Blood Pressure 117/66 03/12/2022 1:32 PM CDT Pulse 100 03/12/2022 1:32 PM CDT Temperature 36.9 C (98.4 F) 03/12/2022 1:32 PM CDT Respiratory Rate 16 03/12/2022 1:32 PM CDT Oxygen Saturation 96% 03/12/2022 1:32 PM CDT Inhaled Oxygen Concentration - - Weight 71.5 kg (157 lb 10.1 oz) 03/12/2022 1:15 PM CDT Height 168 cm (5' 6.14") 10/02/2021 1:28 PM CDT Body Mass Index 25.33 10/02/2021 1:28 PM CDT Plan of Treatment Health Maintenance Due Date Last Done Comments COVID-19 Vaccination Completed 10/15/2021, 01/25/2021, , Additional history exists Procedures Procedure Name Priority Date/Time Associated Comments Diagnosis TISSUE SLIDES Routine 05/06/2022 9:15 AM Primary squamous MATERIAL REQUEST SCREEN PRINTER HELPER cell carcinoma of base of tongue OSI PET CT SKULL TO Routine 02/18/2022 9:11 PM Cancer Re sults for this MID THIGH CDT procedure are i n the results section. OSI PET CT SKULL TO Routine 01/10/2022 9:10 PM Cancer Re sults for this MID THIGH CDT procedure are i n the results section. OR LARYNGOSCOPY Routine 10/03/2021 11:00 Squamous cell Results for this FLEXIBLE DIAGNOSTIC AM CDT carcinoma, NOS of pro cedure are in oropharynx, NOS the results section. COVID-19 Routine 10/01/2021 11:34 Suspected COVID-19 Resul ts for this (SARS-COV-2) PCR AM CDT procedure a re in ASYMPTOMATIC the results section. OSI CT SFT TISS NECK Routine 09/06/2021 11:49 Cancer Res ults for this PM CDT procedure are i n the results section. OSI PET CT SKULL TO Routine 09/02/2021 11:49 Cancer Resu lts for this MID THIGH PM CDT procedure are i n the results section. after 06/09/2021 Results Tissue Slides Material Request (05/06/2022 9:15 AM SCREEN PRINTER HELPER) Specimen Anatomical Collection Method Collection Time Receive d Time (Source) Location / / Volume Laterality Tissue 05/06/2022 9:15 AM 9:15 SCREEN PRINTER HELPER AM SCREEN PRINTER HELPER Hailey HINKLE AP [facility] Performing Organization Address City/State/ZIP Code Phon e Number [facility] [place] [address] [address] Skull to Mid Thigh (02/18/2022 9:11 PM CDT)Only the most recent of3 resultswithin the time period is included. Specimen (Source) Anatomical Location Collection Method / Collectio n Time Received Time / Laterality Volume Narrative Systemgenerated, Documentation - 022 9:11 PM CDT Study acquired at another institution. For comparison only. No MD Galvin originated interpretation requested or a vailable. Joann Leone MD IMG OUTSIDE IMAGE ORDERABLES OR LARYNGOSCOPY FLEXIBLE DIAGNOSTIC (10/03/2021 11:00 AM CDT) Narrative Juancarlos Schrader MD - 10/03/2021 11:00 AM C DT YARIEL Smith 10/05/2021 2:52 PM Flexible nasopharyngeal laryngoscopy Date/Time: 10/03/2021 11:00 AM Provider Information: Performed by: Juancarlos Schrader MD Authorized by: YARIEL Smith Faculty: Juancarlos Schrader MD Lumber Stacker present?: yes Lumber Stacker: YARIEL Smith Indications: Indications: oncologic staging/assessm ent of a known neoplasm and oncologic surveillance/follow-up Pre-Procedure Note: Pre-procedure patient condition: alert Procedure Details: Instrument used: flexible fiberoptic l aryngoscope Videostroboscopy performed: no Patient preparation: patient ready for procedure, patient positioned for procedure, Leonid-Synephrine 1% Topical spr ay applied to the nasal mucosa for decongestion and Xylocaine 4% Topical sp ray applied to the nasal mucosa for anesthesia The scope was introduced into the: ant erior nares Findings: Nasopharynx: Left Eustachian tube: Eustachian tube pa tent and no mass Right Eustachian tube: Eustachian tube p atent and no mass Left Fossa of Rosenmuller: no mass Right Fossa of Rosenmuller: no mass Oropharynx: Left Superior tonsil: no mass Right Superior tonsil: no mass Left Inferior tonsil: no mass Right Inferior tonsil: no mass Left Base of tongue: no mass, bleeding a bsent, no mucosal lesion and lymphoid tissue normal Right Base of tongue: no mass, bleeding absent, no mucosal lesion and lymphoid tissue normal Posterior wall: no mass, no mucosal lesi on and bleeding absent Oral Cavity: Left Oral tongue: no mass, no flap, leuk oplakia absent and erythroplakia absent Right Oral tongue: no mass, no flap, tali koplakia absent and erythroplakia absent Floor of mouth: no mass, leukoplakia abs ent and erythroplakia absent Gingiva: no mass, leukoplakia absent and erythroplakia absent Larynx: Glottis: Left true vocal cord: no mass, airway pa tent and normal mucosa Right true vocal cord: no mass, airway p atent and normal mucosa Supraglottis: Left epiglottis: no mass Right epiglottis: no mass Left False vocal cord: no mass Right False vocal cord: no mass Hypopharynx: Left Pyriform sinus: no mass Right Pyriform sinus: no mass Trachea: Trachea: normal to alton Specimen(s) Removed: Specimen(s) removed: no Estimated Blood Loss: Estimated blood loss: none Post-Procedure Complications: Immediate post-procedure complications: the procedure was terminated without complications Post-Procedure Patient Condition: Post-procedure patient condition: jorge ent tolerated the procedure well with no immediate complications Post-Procedure Disposition: Disposition: discharge to home Comments: -RIGHT vocal cord paresis noted Mario Nayak WHITEWATER RAFTING GUIDE ENT ORDERABLES MD COVID-19 (KAMRYN-CoV-2) PCR Asymptomatic (10/01/2021 11:34 AM CDT) Component Value Ref Range Test Analysis Performed Pathologis t Method Time At Signature COVID19 SARS Pre-Out of OR UT MD Indication Procedure [facility] COVID19 SARS Not Detected Not UT Result Detected [facility] COVID19 SARS SARS-CoV-2 NOT Detected. UT Interpretation [place] Reference Range: Not Detected [facility] Methodology: The Chua Real Time SARS-CoV-2 assay is a qualitative real-time reverse return agent airport polymerase chain reaction (avionics technician-PCR) test to detect RNA from SARS-CoV-2 in nasal, nasopharyngeal and oropharyngeal swabs from patients with signs and symptoms of infection who ar e suspected of COVID-19 by their health care provider. The Chua RealTime SARS-CoV-2 performed on the [employer]000 System is a dual target assay with primers and probes for the RdRp and N genes. Results must be interpreted within the context of all relevant clinical and laboratory findings, and epidemiological risk factors. Positive results are indicative of the presence of SARS-CoV-2 RNA; clinical correlation with patient history and other diagnostic information is ne cessary to determine patient infection status. Positive results do not rule out bacterial infection or co-infection with other viruses. Negative results do not preclude SARS- CoV-2 infection and should not be used as the sole basis for patient management decisions. The Chua RealTime SARS-CoV -2 assay is for in vitro diagnostic use under FDA Emergency Use Authorization only. Testing is limited to laboratories certified under the Clinical Laboratory Improvement Maude ndments of 1988 (CLIA), 42U.S.C. 263a, to perform high complexity tests. The T est was performed by the CLIA-certified, high- complexity [facility] ([facility]) at [facility] under the Food and Drug Administration (FDA) s Emergency Use Authorization. Factsheet for patients: https://www.[facility].org/AbbottFac tSheetPatients Factsheet for healthcare pro viders: https://www.[facility].org/AbbottFactSheetHCP Test performed by: [facility] [address] [place] [address] Specimen (Source) Anatomical Collection Method Collection Time Re ceived Time Location / / Volume Laterality Nasopharyngeal Swab 10/01/2021 11:34 09/15 AM CDT 3:08 PM CDT Joann Leone MD MICROBIOLOGY - GENERAL ORDER NGA Performing Organization Address City/State/ZIP Code Phon e Number [facility] Unless otherwise noted, [address] all lab tests performed by: Division of Pathology and Laboratory Medicine [facility] [facility] OSI CT Sft Tiss Neck (09/06/2021 11:49 PM CDT) Specimen (Source) Anatomical Location Collection Method / Collectio n Time Received Time / Laterality Volume Narrative Systemgenerated, Documentation - 022 11:49 PM CDT Study acquired at another institution. For comparison only. No Kamar originated interpretation requested or a vailable. Joann Leone MD IMG OUTSIDE IMAGE ORDERABLES after 06/09/2021 Insurance Payer Benefit Plan / Subscriber ID Effective Dates Phone Addre ss Type Group [facility] [id number] 2021-Presen [address] [address] Medicare MEDICARE t [facility] [id number] ([address]) [place] [id number] Juan Antonio Mooney Personal/Family Self 1945 [address] ([address]) [place] [phone] Care Teams Artillery Specialist Relationship Specialty Start Date End Date Jacqueline Wright MD PCP - External Follow Up Hematology and 09/13/20 [address] [facility] [place] [address] Elijah Farris MD PCP - General Thoracic Medicine 09/13/20 09/19/[address] [place] [id number] Joann Leone MD PCP - General Head and Neck Medical 09/20/[address] [place] [address] [place] [address] Juancarlos Schrader MD Consulting Physician Head and Neck Surgery 02/11/[address] [place] [id number]
--- OUTSIDE RECORDS SUMMARY | 2022-06-09 20:54 | XMS REPORT | Continuity of Care Document ---
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 Seybold MG OR TB24 14:23: mouth - 06 daily Externa l Acetaminoph 0 Yes 1000mg Take 1,000 Marilynn en 1-20 mg by Seybold (TYLENOL) 14:23: mouth 2 - 500 MG oral 06 times Externa Tablet daily l Polyethylen Yes 17g Take 17 g K elsey e Glycol 1-20 by mouth Seybold 3350 17 g 14:23: as needed - oral Pack 06 Externa l Nitroglycer Yes .4mg Place 0.4 K elsey in 0.4 MG 1-20 mg under Seybol d sublingual 14:23: the tongue - SL Tab 06 as needed Externa for chest l pain Mirtazapine Yes 30mg Take 30 mg Marilynn 30 MG oral 1-20 by mouth Seybo ld Tablet 14:23: at bedtime - 06 Externa l hydrOXYzine Yes 50mg Take 50 mg Marilynn HCl 25 MG 1-20 by mouth Seybol d oral Tablet 14:23: as needed - 06 for Externa itching 2 l tablets (50 mg total) by mouth QPM for PTSD Loratadine Yes 10mg Take 10 mg K elsey (CLARITIN) 1-20 by mouth Seybo ld 10 MG oral 14:23: daily For - tablet 06 bone pain Externa during l chemo and drainage Ferrous Yes 325mg Take 325 Kelse y Sulfate 325 1-20 mg by Seybold (65 Fe) MG 14:23: mouth - oral Tablet 06 daily Not Ext rubén taking l Docusate Yes 100mg Q.5D Take 100 Sheree ey Sodium 100 1-20 mg by Seybold MG oral 14:23: mouth 2 - Capsule 06 times Externa daily as l needed for constipati on Clopidogrel Yes 75mg Take 1 Sheree ey Bisulfate 1-20 tablet (75 Seyb old 75 MG oral 00:00: mg total) - Tablet 00 by mouth Externa daily l Metoprolol Yes 25mg Take 1 Kelse y Tartrate 25 06-06 tablet (25 Se ybold MG oral 00:00: mg total) - Tablet 00 by mouth 2 Externa times l daily Atorvastati 2022- No 40mg Take 1 Renate sey n Calcium 06-06 tablet (40 Sey bold (Lipitor) 00:00: 00:00 mg total) - 40 MG oral 00 :00 by mouth Exter na Tablet daily l sodium 2022- No [id number] 500mL 500 mL, at [facility] chloride 05-20 1,000 Seybold 0.9 % 19:45: 20:15 mL/hr, - infusion 00 :00 Administer Exter na 500 mL over 30 l Minutes, intravenou s, ONCE, On Thu05/20/22 at 1345, For [address] ease indicate the Primary diagnosis for Hydration: E86. 0 Dehydratio n
DiphenhydrA 2022- No [id number] 25mg 25 mg, at [facility] MINE 05-20 351 mL/hr, Seybold (BENADRYL) 19:00: 19:13 Administer - 25 mg in 00 :00 over 10 Externa sodium Minutes, l chloride intravenou 0.9 % 50 mL s, ONCE, infusion On Thu05/20/22 at 1300, For 1 dose
Gi ve 30 minutes prior to chemothera py.
sodium 2022- No [id number] 500mL 500 mL, at [facility] chloride 05-20 1,000 Seybold 0.9 % 18:15: 18:45 mL/hr, - infusion 00 :00 Administer Exter na 500 mL over 30 l Minutes, intravenou s, ONCE, On Thu05/20/22 at 1215, For [address] ease indicate the Primary diagnosis for Hydration: E86. 0 Dehydratio n
Cetuximab 2021-05- No [id number] 250mg/m 500 mg Marilynn (ERBITUX) 07-14 12- 2 (rounded Seybo ld infusion 18:00: 19:35 from 457.5 - 500 mg 00 :00 mg = 250 Externa mg/m2 l ?1.83 m2 Treatment Plan BSA from Recorded weight), at 250 mL/hr, intravenou s, ONCE, On Thu05/13/22 at 1200, For 1 dose
30 minutes observatio n post Erbitux infusion.& nbsp;&nbsp ;Infuse only with a 0.22 micron filter.
DiphenhydrA 2021-05 No [id number] 25mg 25 mg, at [facility] 07-14 351 mL/hr, Seybold (BENADRYL) 17:45: 17:45 Administer - 25 mg in 00 :00 over 10 Externa sodium Minutes, l chloride intravenou 0.9 % 50 mL s, ONCE, infusion On Thu05/13/22 at 1145, For 1 dose
Gi ve 30 minutes prior to chemothera py.
Levothyroxi 2021-05 Yes 25ug Take 1 Sheree ey ne Sodium 2-23 tablet (25 Seyb old 25 MCG oral 00:00: mcg total) - Tablet 00 by mouth Externa daily l Levothyroxi 2021-05 Yes 25ug Take 1 Sheree ey ne Sodium 2-23 tablet (25 Seyb old 25 MCG oral 00:00: mcg total) - Tablet 00 by mouth Externa daily l Levothyroxi 2021-05 Yes 25ug Take 1 Sheree ey ne Sodium 2-23 tablet (25 Seyb old 25 MCG oral 00:00: mcg total) - Tablet 00 by mouth Externa daily l Levothyroxi 2021-05 Yes 25ug Take 1 Sheree ey ne Sodium 2-23 tablet (25 Seyb old 25 MCG oral 00:00: mcg total) - Tablet 00 by mouth Externa daily l Cetuximab 2021-05- No [id number] 400mg/m 700 mg Marilynn (ERBITUX) 07-06 2 (rounded Seybo ld infusion 19:45: 22:44 from 732 - 700 mg 00 :00 mg = 400 Externa mg/m2 l ?1.83 m2 Treatment Plan BSA from Recorded weight), at 175 mL/hr, intravenou s, ONCE, On Thu05/05/22 at 1345, For 1 dose
On e Hour Observatio n post Erbitux infusion.& nbsp;&nbsp ;Infuse only with a 0.22 micron filter.
Pembrolizum 2021-05 No [id number] 200mg 200 mg, at [facility] 07-06 100 mL/hr, Seybold (KEYTRUDA) 19:15: 20:30 Administer - 200 mg in 00 :00 over 30 Externa sodium Minutes, l chloride intravenou 0.9 % 50 mL s, ONCE, infusion On Thu05/05/22 at 1315, For 1 dose
Us e a sterile, non-pyroge mack, low-protei n binding 0.22 micron in-line or add-on filter.&lt ;br> DiphenhydrA 2021-05 No [id number] 25mg 25 mg, at [facility] 07-06 351 mL/hr, Seybold (BENADRYL) 19:15: 19:18 Administer - 25 mg in 00 :00 over 10 Externa sodium Minutes, l chloride intravenou 0.9 % 50 mL s, ONCE, infusion On Thu05/05/22 at 1315, For 1 dose
Gi ve 30 minutes prior to chemothera py.
Acetaminoph 2021-05 No [id number] 650mg 650 mg, [facility] 07-06 oral, Seybold (TYLENOL) 19:15: 19:10 ONCE, On - tablet 650 00 :00 Mon Externa mg 05/05/22 l at 1315, For 1 dose
Ma ximum dose of acetaminop hen is 4000 mg from all sources in 24 hours.
ferrous 2021-05 Yes 325mg Take 1 [facility] sulfate 325 2-14 tablet ity of mg (65 mg 17:22: (325 mg[place] elemental 05 by mouth. iron per [facility] tablet) n tablet [facility] hydroxyzine 2021-05 Yes 25mg Take 1 Univ ers HCl 2-14 tablet (25 ity of (ATARAX) 25 17:22: mg) by [place] mg tablet 05 mouth. MD [facility] day [facility] loratadine 2021-05 Yes 10mg Take 1 Unive rs (CLARITIN) 2-14 tablet (10 ity of 10 mg 17:22: mg) by [place] tablet 05 mouth daily. For Anderso 5 days n with Cancer chemothera Center py polyethylen 2021-05 Yes 17g Take 17 g U nivers e glycol 2-14 by mouth. ity of (GLYCOLAX) 17:22: [place] 17 05 gram/dose Anderso powder n [facility] buPROPion 2021-05 Yes 300mg Take 300 Uni vers (WELLBUTRIN 2-14 mg by ity of XL) 300 mg 17:19: mouth [place] 24 hr 44 daily. tablet Adamo barb [facility] mirtazapine 2021-05 Yes 30mg Take 30 mg Univers (REMERON) 2-14 by mouth ity of 30 mg 17:19: at [place] tablet 44 bedtime. MD Tayler dya [facility] nitroglycer 2021-[address] 0.4 U nivers in 2-14 mg under ity of (NITROSTAT) 17:19: the [place] 0.4 mg SL 44 tongue. tablet Tayler day [facility] acetaminoph 2021-05 Yes 500mg Take 500 U nivers en 2-14 mg by ity of (TYLENOL) 17:19: mouth [place] 500 mg 44 every 6 tablet (six) Anderso hours as n needed. [facility] Polyethylen 2021-05 Yes 17g Take 17 g K elsey e Glycol 2-05 by mouth Seybold 3350 17 g 10:07: as needed - oral Pack 23 Externa l Nitroglycer 2021-[address] 0.4 K elsey in 0.4 MG 2-05 mg under Seybol d sublingual 10:07: the tongue - SL Tab 23 as needed Externa for chest l pain Mirtazapine 2021-05 Yes 30mg Take 30 mg Marilynn 30 MG oral 2-05 by mouth Seybo ld Tablet 10:07: at bedtime - 23 Externa l hydrOXYzine 2021-05 Yes 25mg Take 25 mg Marilynn HCl 25 MG 2-05 by mouth Seybol d oral Tablet 10:07: as needed - 23 for Externa itching l 1-2 tablets by mouth PRN Loratadine 2021-05 Yes 10mg Take 10 mg K elsey (CLARITIN) 2-05 by mouth Seybo ld 10 MG oral 10:07: daily For - tablet 23 bone pain Externa during l chemo Polyethylen 2021-05 Yes 17g Take 17 g K elsey e Glycol 2-05 by mouth Seybold 3350 17 g 10:07: as needed - oral Pack 23 Externa l Nitroglycer 2021-[address] 0.4 K elsey in 0.4 MG 2-05 mg under Seybol d sublingual 10:07: the tongue - SL Tab 23 as needed Externa for chest l pain Mirtazapine 2021-05 Yes 30mg Take 30 mg Marilynn 30 MG oral 2-05 by mouth Seybo ld Tablet 10:07: at bedtime - 23 Externa l hydrOXYzine 2021-05 Yes 25mg Take 25 mg Marilynn HCl 25 MG 2-05 by mouth Seybol d oral Tablet 10:07: as needed - 23 for Externa itching l 1-2 tablets by mouth PRN Loratadine 2021-05 Yes 10mg Take 10 mg K elsey (CLARITIN) 2-05 by mouth Seybo ld 10 MG oral 10:07: daily For - tablet 23 bone pain Externa during l chemo Polyethylen 2021-05 Yes 17g Take 17 g K elsey e Glycol 2-05 by mouth Seybold 3350 17 g 10:07: as needed - oral Pack 23 Externa l Nitroglycer 2021-[address] 0.4 K elsey in 0.4 MG 2-05 mg under Seybol d sublingual 10:07: the tongue - SL Tab 23 as needed Externa for chest l pain Mirtazapine 2021-05 Yes 30mg Take 30 mg Marilynn 30 MG oral 2-05 by mouth Seybo ld Tablet 10:07: at bedtime - 23 Externa l hydrOXYzine 2021-05 Yes 25mg Take 25 mg Marilynn HCl 25 MG 2-05 by mouth Seybol d oral Tablet 10:07: as needed - 23 for Externa itching l 1-2 tablets by mouth PRN Loratadine 2021-05 Yes 10mg Take 10 mg K elsey (CLARITIN) 2-05 by mouth Seybo ld 10 MG oral 10:07: daily For - tablet 23 bone pain Externa during l chemo Polyethylen 2021-05 Yes 17g Take 17 g K elsey e Glycol 2-05 by mouth Seybold 3350 17 g 10:07: as needed - oral Pack 23 Externa l Nitroglycer 2021-[address] 0.4 K elsey in 0.4 MG 2-05 mg under Seybol d sublingual 10:07: the tongue - SL Tab 23 as needed Externa for chest l pain Mirtazapine 2021-05 Yes 30mg Take 30 mg Marilynn 30 MG oral 2-05 by mouth Seybo ld Tablet 10:07: at bedtime - 23 Externa l hydrOXYzine 2021-05 Yes 25mg Take 25 mg Marilynn HCl 25 MG 2-05 by mouth Seybol d oral Tablet 10:07: as needed - 23 for Externa itching l 1-2 tablets by mouth PRN Loratadine 2021-05 Yes 10mg Take 10 mg K elsey (CLARITIN) 2-05 by mouth Seybo ld 10 MG oral 10:07: daily For - tablet 23 bone pain Externa during l chemo Polyethylen 2021-05 Yes 17g Take 17 g K elsey e Glycol 2-05 by mouth Seybold 3350 17 g 10:07: as needed - oral Pack 23 Externa l Nitroglycer 2021-[address] 0.4 K elsey in 0.4 MG 2-05 mg under Seybol d sublingual 10:07: the tongue - SL Tab 23 as needed Externa for chest l pain Mirtazapine 2021-05 Yes 30mg Take 30 mg Marilynn 30 MG oral 2-05 by mouth Seybo ld Tablet 10:07: at bedtime - 23 Externa l hydrOXYzine 2021-05 Yes 25mg Take 25 mg Marilynn HCl 25 MG 2-05 by mouth Seybol d oral Tablet 10:07: as needed - 23 for Externa itching l 1-2 tablets by mouth PRN Loratadine 2021-05 Yes 10mg Take 10 mg K elsey (CLARITIN) 2-05 by mouth Seybo ld 10 MG oral 10:07: daily For - tablet 23 bone pain Externa during l chemo Polyethylen 2021-05 Yes 17g Take 17 g K elsey e Glycol 2-05 by mouth Seybold 3350 17 g 10:07: as needed - oral Pack 23 Externa l Nitroglycer 2021-[address] 0.4 K elsey in 0.4 MG 2-05 mg under Seybol d sublingual 10:07: the tongue - SL Tab 23 as needed Externa for chest l pain Mirtazapine 2021-05 Yes 30mg Take 30 mg Marilynn 30 MG oral 2-05 by mouth Seybo ld Tablet 10:07: at bedtime - 23 Externa l hydrOXYzine 2021-05 Yes 25mg Take 25 mg Marilynn HCl 25 MG 2-05 by mouth Seybol d oral Tablet 10:07: as needed - 23 for Externa itching l 1-2 tablets by mouth PRN Loratadine 2021-05 Yes 10mg Take 10 mg K elsey (CLARITIN) 2-05 by mouth Seybo ld 10 MG oral 10:07: daily For - tablet 23 bone pain Externa during l chemo Bupropion 2021-05 Yes 300mg Take 300 Renate sey HCL XL 300 2-05 mg by Seybold MG OR TB24 10:05: mouth - 59 daily Externa l Ferrous 2021-05 Yes 325mg Take 325 Kelse y Sulfate 325 2-05 mg by Seybold (65 Fe) MG 10:05: mouth - oral Tablet 59 daily Externa l Bupropion 2021-05 Yes 300mg Take 300 Renate sey HCL XL 300 2-05 mg by Seybold MG OR TB24 10:05: mouth - 59 daily Externa l Ferrous 2021-05 Yes 325mg Take 325 Kelse y Sulfate 325 2-05 mg by Seybold (65 Fe) MG 10:05: mouth - oral Tablet 59 daily Externa l Bupropion 2021-05 Yes 300mg Take 300 Renate sey HCL XL 300 2-05 mg by Seybold MG OR TB24 10:05: mouth - 59 daily Externa l Ferrous 2021-05 Yes 325mg Take 325 Kelse y Sulfate 325 2-05 mg by Seybold (65 Fe) MG 10:05: mouth - oral Tablet 59 daily Externa l Bupropion 2021-05 Yes 300mg Take 300 Renate sey HCL XL 300 2-05 mg by Seybold MG OR TB24 10:05: mouth - 59 daily Externa l Ferrous 2021-05 Yes 325mg Take 325 Kelse y Sulfate 325 2-05 mg by Seybold (65 Fe) MG 10:05: mouth - oral Tablet 59 daily Externa l Bupropion 2021-05 Yes 300mg Take 300 Renate sey HCL XL 300 2-05 mg by Seybold MG OR TB24 10:05: mouth - 59 daily Externa l Ferrous 2021-05 Yes 325mg Take 325 Kelse y Sulfate 325 2-05 mg by Seybold (65 Fe) MG 10:05: mouth - oral Tablet 59 daily Externa l Bupropion 2021-05 Yes 300mg Take 300 Renate sey HCL XL 300 2-05 mg by Seybold MG OR TB24 10:05: mouth - 59 daily Externa l Ferrous 2021-05 Yes 325mg Take 325 Kelse y Sulfate 325 2-05 mg by Seybold (65 Fe) MG 10:05: mouth - oral Tablet 59 daily Externa l Acetaminoph 2021-05 Yes 500mg Q.25D Take 500 Marilynn en 2-05 mg by Seybold (TYLENOL) 10:05: mouth - 500 MG oral 12 every 6 Exter na Tablet hours as l needed for pain Acetaminoph 2021-05 Yes 500mg Q.25D Take 500 Marilynn en 2-05 mg by Seybold (TYLENOL) 10:05: mouth - 500 MG oral 12 every 6 Exter na Tablet hours as l needed for pain Acetaminoph 2021-05 Yes 500mg Q.25D Take 500 Marilynn en 2-05 mg by Seybold (TYLENOL) 10:05: mouth - 500 MG oral 12 every 6 Exter na Tablet hours as l needed for pain Acetaminoph 2021-05 Yes 500mg Q.25D Take 500 Marilynn en 2-05 mg by Seybold (TYLENOL) 10:05: mouth - 500 MG oral 12 every 6 Exter na Tablet hours as l needed for pain Acetaminoph 2021-05 Yes 500mg Q.25D Take 500 Marilynn en 2-05 mg by Seybold (TYLENOL) 10:05: mouth - 500 MG oral 12 every 6 Exter na Tablet hours as l needed for pain Acetaminoph 2021-05 Yes 500mg Q.25D Take 500 Marilynn en 2-05 mg by Seybold (TYLENOL) 10:05: mouth - 500 MG oral 12 every 6 Exter na Tablet hours as l needed for pain Tamsulosin 2021-05 Yes .4mg Take 1 Kelse y HCl 0.4 MG 2-05 capsule Seybol d oral 00:00: (0.4 mg - Capsule 00 total) by Externa mouth 2 l times daily Baclofen 2021-05 Yes 10mg Q.[id number] Take 1 Marilynn MG oral 2-05 [id number] tablet (10 Seybold Tablet 00:00: 3D mg total) - 00 by mouth 3 Externa times l daily as needed for muscle spasms or pain Tamsulosin 2021-05 Yes .4mg Take 1 Kelse y HCl 0.4 MG 2-05 capsule Seybol d oral 00:00: (0.4 mg - Capsule 00 total) by Externa mouth 2 l times daily Baclofen 2021-05 Yes 10mg Q.[id number] Take 1 Marilynn MG oral 2-05 [id number] tablet (10 Seybold Tablet 00:00: 3D mg total) - 00 by mouth 3 Externa times l daily as needed for muscle spasms or pain Tamsulosin 2021-05 Yes .4mg Take 1 Kelse y HCl 0.4 MG 2-05 capsule Seybol d oral 00:00: (0.4 mg - Capsule 00 total) by Externa mouth 2 l times daily Baclofen 2021-05 Yes 10mg Q.[id number] Take 1 Marilynn MG oral 2-05 [id number] tablet (10 Seybold Tablet 00:00: 3D mg total) - 00 by mouth 3 Externa times l daily as needed for muscle spasms or pain Tamsulosin 2021-05 Yes .4mg Take 1 Kelse y HCl 0.4 MG 2-05 capsule Seybol d oral 00:00: (0.4 mg - Capsule 00 total) by Externa mouth 2 l times daily Baclofen 2021-05 Yes 10mg Q.[id number] Take 1 Marilynn MG oral 2-05 [id number] tablet (10 Seybold Tablet 00:00: 3D mg total) - 00 by mouth 3 Externa times l daily as needed for muscle spasms or pain Tamsulosin 2021-05 Yes .4mg Take 1 Kelse y HCl 0.4 MG 2-05 capsule Seybol d oral 00:00: (0.4 mg - Capsule 00 total) by Externa mouth 2 l times daily Baclofen 2021-05 Yes 10mg Q.[id number] Take 1 Marilynn MG oral 2-05 [id number] tablet (10 Seybold Tablet 00:00: 3D mg total) - 00 by mouth 3 Externa times l daily as needed for muscle spasms or pain Tamsulosin 2021-05 Yes .4mg Take 1 Kelse y HCl 0.4 MG 2-05 capsule Seybol d oral 00:00: (0.4 mg - Capsule 00 total) by Externa mouth 2 l times daily Baclofen 2021-05 Yes 10mg Q.[id number] Take 1 Marilynn MG oral 2-05 [id number] tablet (10 Seybold Tablet 00:00: 3D mg total) - 00 by mouth 3 Externa times l daily as needed for muscle spasms or pain Tamsulosin 2021-05 Yes .4mg Take 1 Kelse y HCl 0.4 MG 2-05 capsule Seybol d oral 00:00: (0.4 mg - Capsule 00 total) by Externa mouth 2 l times daily Baclofen 2021-05 Yes 10mg Q.[id number] Take 1 Marilynn MG oral 2-05 [id number] tablet (10 Seybold Tablet 00:00: 3D mg total) - 00 by mouth 3 Externa times l daily as needed for muscle spasms or pain DOCEtaxel 2021-05- No [id number] 75mg/m2 140 mg Marilynn (TAXOTERE) 06-14 (rounded Seyb old 140 mg in 20:45: 22:04 from - sodium 00 :00 135.75 mg Externa chloride = 75 mg/m2 l 0.9 % 250 ?1.81 m2 mL infusion Treatment Plan BSA from Recorded weight), at 250 mL/hr, Administer over 60 Minutes, intravenou s, ONCE, On Thu04/14/22 at 1445, For 1 dose
French norman can have ice chips with Docetaxel. Use non-DEHP tubing only. Maintain Docetaxel concentrat ion between 0.3 to 0.74 mg/mL.
Pegfilgrast 2021-05- No 245 6mg Patient Ke ey im 06-14 has a Seybold (NEULASTA 20:15: 22:09 pacemaker? - ONPRO) 00 :00 No
Maria Del Rosario Externa injection 6 ent has l mg allergy to acrylic tape? No
Maria Del Rosario ent is on chemothera py that requires pump disconnect ? No
Maria Del Rosario ent receiving 3 mg Neulasta? No
6 mg, subcutaneo us, ONCE, On Thu04/14/22 at 1415, For 1 dose
Pe gfilgrasti m (Neulasta Onpro) 6 mg SQ apply on day(s) 1 of each cycle . 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
Gi ve 30 minutes prior to chemothera py.
Polyethylen 2021-05 Yes 17g Take 17 g K elsey e Glycol 1-10 by mouth Seybold 3350 11:37: as needed - (MiraLax) 59 Externa 17 g oral l Pack Nitroglycer 2021-[address] 0.4 K elsey in 0.4 MG 1-10 mg under Seybol d sublingual 11:37: the tongue - SL Tab 59 as needed Externa for chest l pain Mirtazapine 2021-05 Yes 30mg Take 30 mg Marilynn 30 MG oral 1-10 by mouth Seybo ld Tablet 11:37: at bedtime - 59 Externa l hydrOXYzine 2021-05 Yes 25mg Take 25 mg Marilynn HCl 25 MG 1-10 by mouth Seybol d oral Tablet 11:37: as needed - 59 for Externa itching l 1-2 tablets by mouth PRN Loratadine 2021-05 Yes 10mg Take 10 mg K elsey (CLARITIN) 1-10 by mouth Seybo ld 10 MG oral 11:37: daily For - tablet 59 bone pain Externa during l chemo Ferrous 2021-05 Yes 325mg Take 325 Kelse y Sulfate 325 1-10 mg by Seybold (65 Fe) MG 11:37: mouth - oral Tablet 59 daily Externa l Bupropion 2021-05 Yes 300mg Take 300 Renate sey HCL XL 300 1-10 mg by Seybold MG OR TB24 11:06: mouth - 00 daily Externa l Acetaminoph 2021-05 Yes 500mg Q.25D Take 500 Marilynn en 1-10 mg by Seybold (TYLENOL) 11:06: mouth - 500 MG oral 00 every 6 Exter na Tablet hours as l needed for pain DOCEtaxel 2021-05- No [id number] 75mg/m2 140 mg Marilynn (TAXOTERE) 05-24 (rounded Seyb old 140 mg in 18:45: 20:10 from - sodium 00 :00 135.75 mg Externa chloride = 75 mg/m2 l 0.9 % 250 ?1.81 m2 mL infusion Treatment Plan BSA from Recorded weight), at 250 mL/hr, Administer over 60 Minutes, intravenou s, ONCE, On Thu03/24/22 at 1245, For 1 dose
Pa tient can have ice chips with Docetaxel. Use non-DEHP tubing only. Maintain Docetaxel concentrat ion between 0.3 to 0.74 mg/mL.
Pegfilgrast 2021-05- No 245 6mg Patient Elieser cordova im 05-24 has a Seybold (NEULASTA 18:15: 20:15 pacemaker? - ONPRO) 00 :00 No
Maria Del Rosario Externa injection 6 ent has l mg allergy to acrylic tape? No
Maria Del Rosario ent is on chemothera py that requires pump disconnect ? No
Maria Del Rosario ent receiving 3 mg Neulasta? No
6 mg, subcutaneo us, ONCE, On Thu03/24/22 at 1215, For 1 dose
Pe gfilgrasti m (Neulasta Onpro) 6 mg SQ apply on day(s) 1 of each cycle . 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
Gi ve 30 minutes prior to chemothera py.
Nitroglycer 2021-05- No 1 tablet K elsey in 0.4 MG 05-24 under the Seyb old sublingual 14:26: 00:00 tongue at - SL Tab 48 :00 onset of Externa attack. l Repeat as needed up to 3 times. naproxen 2021-05- No 220mg Take 220 Uni vers sodium 0-26 10-26 mg by ity of (ALEVE) 220 14:43: 00:00 mouth. [place] as MG tablet 48 :00 MD Tayler day [facility] multivitami 2021-05- No Take by Un [place] n 0-26 10-26 mouth. ity of (THERAGRAN) 14:43: 00:00 [place] tablet 45 :00 MD Tayler day [facility] aspirin 81 2021-05- No Univer s mg cap 0-26 10-26 ity of 14:19: 00:00 [place] 05 :00 MD Tayler day [facility] buPROPion 2021-05- No 300mg Take 300 Un [place] (WELLBUTRIN 0-26 10-26 mg by ity of XL) 150 mg 13:30: 00:00 mouth [place] 24 hr 01 :00 daily. tablet Tayler day [facility] atorvastati 2021-05- No 20mg Take 20 mg Univers n (LIPITOR) 0-26 10-26 by mouth ity of 20 mg 13:27: 00:00 at [place] tablet 34 :00 bedtime. MD Tayler day [facility] sodium 2021-05- No [id number] 2000mL 2,000 mL, Marilynn chloride 0-10 10-10 at 1,000 Seybol d 0.9 % 16:07: 19:06 mL/hr, - infusion 14 :16 Administer Exter na 2,000 mL over 120 l Minutes, intravenou s, PRN, Dehydratio n, Starting on 02/24/[address] indicate the Primary diagnosis for Hydration: E86. 0 Dehydratio n
Dexamethaso 2021-05 Yes [id number] Take 2 Marilynn ne 0-10 tablets (8 Seybold (DECADRON) 00:00: mg) by - 4 MG oral 00 mouth Externa tablet twice l daily for 3 days. Take one day prior to, the day of and the day after chemothera py Ondansetron 2021-05 Yes [id number] Take one Marilynn (ZOFRAN) 8 0-10 tablet by Seyb old MG oral 00:00: mouth - tablet 00 every 8 Externa hours as l needed for nausea. Dexamethaso 2021-05 Yes [id number] Take 2 Marilynn ne 0-10 tablets (8 Seybold (DECADRON) 00:00: mg) by - 4 MG oral 00 mouth Externa tablet twice l daily for 3 days. Take one day prior to, the day of and the day after chemothera py Ondansetron 2021-05 Yes [id number] Take one Marilynn (ZOFRAN) 8 0-10 tablet by Seyb old MG oral 00:00: mouth - tablet 00 every 8 Externa hours as l needed for nausea. Dexamethaso 2021-05 Yes [id number] Take 2 Marilynn ne 0-10 tablets (8 Seybold (DECADRON) 00:00: mg) by - 4 MG oral 00 mouth Externa tablet twice l daily for 3 days. Take one day prior to, the day of and the day after chemothera py Ondansetron 2021-05 Yes [id number] Take one Marilynn (ZOFRAN) 8 0-10 tablet by Seyb old MG oral 00:00: mouth - tablet 00 every 8 Externa hours as l needed for nausea. Dexamethaso 2021-05 Yes [id number] Take 2 Marilynn ne 0-10 tablets (8 Seybold (DECADRON) 00:00: mg) by - 4 MG oral 00 mouth Externa tablet twice l daily for 3 days. Take one day prior to, the day of and the day after chemothera py Ondansetron 2021-05 Yes [id number] Take one Marilynn (ZOFRAN) 8 0-10 tablet by Seyb old MG oral 00:00: mouth - tablet 00 every 8 Externa hours as l needed for nausea. Dexamethaso 2021-05 Yes [id number] Take 2 Marilynn ne 0-10 tablets (8 Seybold (DECADRON) 00:00: mg) by - 4 MG oral 00 mouth Externa tablet twice l daily for 3 days. Take one day prior to, the day of and the day after chemothera py Ondansetron 2021-05 Yes [id number] Take one Marilynn (ZOFRAN) 8 0-10 tablet by Seyb old MG oral 00:00: mouth - tablet 00 every 8 Externa hours as l needed for nausea. Dexamethaso 2021-05 Yes [id number] Take 2 Marilynn ne 0-10 tablets (8 Seybold (DECADRON) 00:00: mg) by - 4 MG oral 00 mouth Externa tablet twice l daily for 3 days. Take one day prior to, the day of and the day after chemothera py Ondansetron 2021-05 Yes [id number] Take one Marilynn (ZOFRAN) 8 0-10 tablet by Seyb old MG oral 00:00: mouth - tablet 00 every 8 Externa hours as l needed for nausea. dexamethaso 2021-05 Yes Take 2 [facility] ers ne 0-10 tablets (8 ity of (DECADRON) 00:00: mg) by [place] 4 mg tablet 00 mouth MD twice Anderso daily for n 3 days. Cancer Take one Center day prior to, the day of and the day after chemothera py Dexamethaso 2021-05- No [id number] Take 2 Marilynn ne 0-10 12-13 tablets (8 Seybold (DECADRON) 00:00: 00:00 mg) by - 4 MG oral 00 :00 mouth Externa tablet twice l daily for 3 days. Take one day prior to, the day of and the day after chemothera py Ondansetron 2021-05- No [id number] Take one Marilynn (ZOFRAN) 8 0-10 12-13 tablet by Sey bold MG oral 00:00: 00:00 mouth - tablet 00 :00 every 8 Externa hours as l needed for nausea. 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 [facility] ers ne 02-12 ity of (SYNTHROID, 00:00: [place] LEVOTHROID) 00 MD 25 mcg Anderso tablet n [facility] Lactulose Yes 20g Q.[id number] Take 30 mL Marilynn 20 GM/30ML 9-27 [id number] (20 g Se ybold oral 00:00: 3D total) by - Solution 00 mouth 3 Externa times l daily as needed Lactulose Yes 20g Q.[id number] Take 30 mL Marilynn 20 GM/30ML 9-27 [id number] (20 g Se ybold oral 00:00: 3D total) by - Solution 00 mouth 3 Externa times l daily as needed Lactulose Yes 20g Q.[id number] Take 30 mL Marilynn 20 GM/30ML 9-27 [id number] (20 g Se ybold oral 00:00: 3D total) by - Solution 00 mouth 3 Externa times l daily as needed Lactulose Yes 20g Q.[id number] Take 30 mL Marilynn 20 GM/30ML 9-27 [id number] (20 g Se ybold oral 00:00: 3D total) by - Solution 00 mouth 3 Externa times l daily as needed Lactulose Yes 20g Q.[id number] Take 30 mL Marilynn 20 GM/30ML 9-27 [id number] (20 g Se ybold oral 00:00: 3D total) by - Solution 00 mouth 3 Externa times l daily as needed Lactulose Yes 20g Q.[id number] Take 30 mL Marilynn 20 GM/30ML 9-27 [id number] (20 g Se ybold oral 00:00: 3D total) by - Solution 00 mouth 3 Externa times l daily as needed Lactulose 2022-0 Yes 20g Q.[id number] Take 30 mL Marilynn 20 GM/30ML 02-11 [id number] (20 g Se ybold oral 00:00: 3D total) by - Solution 00 mouth 3 Externa times l daily as needed Lactulose 0 Yes 20g Q.[id number] Take 30 mL Marilynn 20 GM/30ML 02-11 [id number] (20 g Se ybold oral 00:00: 3D total) by - Solution 00 mouth 3 Externa times l daily as needed Lactulose Yes 20g Q.[id number] Take 30 mL Marilynn 20 GM/30ML 02-11 [id number] (20 g Se ybold oral 00:00: 3D total) by - Solution 00 mouth 3 Externa times l daily as needed Lactulose Yes 20g Q.[id number] Take 30 mL Marilynn 20 GM/30ML 02-11 [id number] (20 g Se ybold oral 00:00: 3D total) by - Solution 00 mouth 3 Externa times l daily as needed Lactulose Yes 20g Q.[id number] Take 30 mL Marilynn 20 GM/30ML 02-11 [id number] (20 g Se ybold oral 00:00: 3D total) by - Solution 00 mouth 3 Externa times l daily as needed Lactulose Yes 20g Q.[id number] Take 30 mL Marilynn 20 GM/30ML 02-11 [id number] (20 g Se ybold oral 00:00: 3D total) by - Solution 00 mouth 3 Externa times l daily as needed lactulose Yes 20g Take 20 g Uni vers (CHRONULAC) 02-11 by mouth ity of 10 gram/15 00:00: [place] mL solution 00 [facility] sodium 2021- No [id number] at 1,000 Ke lsey chloride 02-07 09-23 mL/hr, Seybold 0.9 % 1,000 21:15: 22:14 intravenou - mL infusion 00 :00 s, ONCE, Exte rna On Thu02/07/22 at 1615, For 1 dose Pegfilgrast 2021- No [id number] 6mg 6 mg, Marilynn im 02-07 subcutaneo Seybold (NEULASTA) 20:45: 22:10 us, ONCE, - injection 6 00 :00 On Fri [facility] a mg 02/07/22 at l 1545, For 1 dose
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
Alteplase 2021- No [id number] 2mg 2 mg, Marilynn (CATHFLO 02-06 9101 intravenou Seyb old ACTIVASE) 20:15: 20:12 s push, - injection 2 00 :00 ONCE, On Exte rna mg Loly l 02/06/22 at 1515, For 1 dose Nutritional Yes DRINK 1 Renate sey Supplements 01-17 CAN BY Seybol d (Ensure) 00:00: MOUTH - oral Liquid 00 EVERY 6 Exter na HOURS A l NUTRITIONA L SUPPLEMENT RD APPROVED 5 TIMES PER DAY IN ADDITION TO MEALS Nutritional Yes DRINK 1 Renate sey Supplements 01-17 CAN BY Seybol d (Ensure) 00:00: MOUTH - oral Liquid 00 EVERY 6 Exter na HOURS A l NUTRITIONA L SUPPLEMENT RD APPROVED 5 TIMES PER DAY IN ADDITION TO MEALS Nutritional Yes DRINK 1 Renate sey Supplements 01-17 CAN BY Seybol d (Ensure) 00:00: MOUTH - oral Liquid 00 EVERY 6 Exter na HOURS A l NUTRITIONA L SUPPLEMENT RD APPROVED 5 TIMES PER DAY IN ADDITION TO MEALS Nutritional Yes DRINK 1 Renate sey Supplements 01-17 CAN BY Seybol d (Ensure) 00:00: MOUTH - oral Liquid 00 EVERY 6 Exter na HOURS A l NUTRITIONA L SUPPLEMENT RD APPROVED 5 TIMES PER DAY IN ADDITION TO MEALS Nutritional Yes DRINK 1 Renate sey Supplements 01-17 CAN BY Seybol d (Ensure) 00:00: MOUTH - oral Liquid 00 EVERY 6 Exter na HOURS A l NUTRITIONA L SUPPLEMENT RD APPROVED 5 TIMES PER DAY IN ADDITION TO MEALS Nutritional Yes DRINK 1 Renate sey Supplements 01-17 CAN BY Seybol d (Ensure) 00:00: MOUTH - oral Liquid 00 EVERY 6 Exter na HOURS A l NUTRITIONA L SUPPLEMENT RD APPROVED 5 TIMES PER DAY IN ADDITION TO MEALS Nutritional Yes DRINK 1 Renate sey Supplements 9- CAN BY Seybol d (Ensure) 00:00: MOUTH - oral Liquid 00 EVERY 6 Exter na HOURS A l NUTRITIONA L SUPPLEMENT RD APPROVED 5 TIMES PER DAY IN ADDITION TO MEALS Multiple Yes Take by Marilynn Vitamin 7-20 mouth Seybold (MULTI 14:33: daily - VITAMIN 04 Externa MENS OR) l Nitroglycer Yes 1 tablet Ke lsey in 0.4 MG 7-20 under the Seybo ld sublingual 14:33: tongue at - SL Tab 04 onset of Externa attack. l Repeat as needed up to 3 times. Bupropion Yes 300mg Take 300 Renate sey HCL XL 300 7-20 mg by Seybold MG OR TB24 14:33: mouth - 04 daily Externa l Naproxen Yes 220mg Take 220 Sheree ey Sodium 220 7-20 mg by Seybold MG oral 14:33: mouth 2 - Tablet 04 times Externa daily l (with meals) Multiple Yes Take by Marilynn Vitamin 7-20 mouth Seybold (MULTI 14:33: daily - VITAMIN 04 Externa MENS OR) l Nitroglycer Yes 1 tablet Ke lsey in 0.4 MG 7-20 under the Seybo ld sublingual 14:33: tongue at - SL Tab 04 onset of Externa attack. l Repeat as needed up to 3 times. Bupropion Yes 300mg Take 300 Renate sey HCL XL 300 7-20 mg by Seybold MG OR TB24 14:33: mouth - 04 daily Externa l Naproxen Yes 220mg Take 220 Sheree ey Sodium 220 7-20 mg by Seybold MG oral 14:33: mouth 2 - Tablet 04 times Externa daily l (with meals) Multiple Yes Take by Marilynn Vitamin 7-20 mouth Seybold (MULTI 14:33: daily - VITAMIN 04 Externa MENS OR) l Nitroglycer Yes 1 tablet Ke lsey in 0.4 MG 7-20 under the Seybo ld sublingual 14:33: tongue at - SL Tab 04 onset of Externa attack. l Repeat as needed up to 3 times. Bupropion 0 Yes 300mg Take 300 Renate sey HCL XL 300 7-20 mg by Seybold MG OR TB24 14:33: mouth - 04 daily Externa l Naproxen 2021-0 Yes 220mg Take 220 Sheree ey Sodium 220 7-20 mg by Seybold MG oral 14:33: mouth 2 - Tablet 04 times Externa daily l (with meals) Multiple 2021-0 Yes Take by Marilynn Vitamin 7-20 mouth Seybold (MULTI 14:33: daily - VITAMIN 04 Externa MENS OR) l Nitroglycer 0 Yes 1 tablet Ke lsey in 0.4 MG 7-20 under the Seybo ld sublingual 14:33: tongue at - SL Tab 04 onset of Externa attack. l Repeat as needed up to 3 times. Bupropion 0 Yes 300mg Take 300 Renate sey HCL XL 300 7-20 mg by Seybold MG OR TB24 14:33: mouth - 04 daily Externa l Naproxen 0 Yes 220mg Take 220 Sheree ey Sodium 220 7-20 mg by Seybold MG oral 14:33: mouth 2 - Tablet 04 times Externa daily l (with meals) Multiple 2021- Yes Take by Marilynn Vitamin 7-20 mouth Seybold (MULTI 14:33: daily - VITAMIN 04 Externa MENS OR) l Nitroglycer 0 Yes 1 tablet Ke lsey in 0.4 MG 7-20 under the Seybo ld sublingual 14:33: tongue at - SL Tab 04 onset of Externa attack. l Repeat as needed up to 3 times. Bupropion 0 Yes 300mg Take 300 Renate sey HCL XL 300 7-20 mg by Seybold MG OR TB24 14:33: mouth - 04 daily Externa l Naproxen 2021-0 Yes 220mg Take 220 Sheree ey Sodium 220 7-20 mg by Seybold MG oral 14:33: mouth 2 - Tablet 04 times Externa daily l (with meals) Multiple 2021-0 Yes Take by Marilynn Vitamin 7-20 mouth Seybold (MULTI 14:33: daily - VITAMIN 04 Externa MENS OR) l Bupropion 2021-0 Yes 300mg Take 300 Renate sey HCL XL 300 7-20 mg by Seybold MG OR TB24 14:33: mouth - 04 daily Externa l Naproxen 2-0 Yes 220mg Take 220 Sheree ey Sodium 220 7-20 mg by Seybold MG oral 14:33: mouth 2 - Tablet 04 times Externa daily l (with meals) Acetaminoph 2022-0 Yes 500mg Q.25D Take 500 Marilynn en 7-20 mg by Seybold (TYLENOL) 14:29: mouth - 500 MG oral 46 every 6 Exter na Tablet hours as l needed for pain Acetaminoph 2022-0 Yes 500mg Q.25D Take 500 Marilynn en 7-20 mg by Seybold (TYLENOL) 14:29: mouth - 500 MG oral 46 every 6 Exter na Tablet hours as l needed for pain Acetaminoph 2022-0 Yes 500mg Q.25D Take 500 Marilynn en 7-20 mg by Seybold (TYLENOL) 14:29: mouth - 500 MG oral 46 every 6 Exter na Tablet hours as l needed for pain Acetaminoph 2022-0 Yes 500mg Q.25D Take 500 Marilynn en 7-20 mg by Seybold (TYLENOL) 14:29: mouth - 500 MG oral 46 every 6 Exter na Tablet hours as l needed for pain Acetaminoph 2022-0 Yes 500mg Q.25D Take 500 Marilynn en 7-20 mg by Seybold (TYLENOL) 14:29: mouth - 500 MG oral 46 every 6 Exter na Tablet hours as l needed for pain Acetaminoph 2022-0 Yes 500mg Q.25D Take 500 Marilynn en 7-20 mg by Seybold (TYLENOL) 14:29: mouth - 500 MG oral 46 every 6 Exter na Tablet hours as l needed for pain Levothyroxi 2-0 Yes 25ug Take 1 Sheree ey ne Sodium 6-30 tablet (25 Seyb old 25 MCG oral 00:00: mcg total) - Tablet 00 by mouth Externa daily l Levothyroxi 2022-0 Yes 25ug Take 1 Sheree ey ne Sodium 6-30 tablet (25 Seyb old 25 MCG oral 00:00: mcg total) - Tablet 00 by mouth Externa daily l Levothyroxi 2022-0 Yes 25ug Take 1 Sheree ey ne Sodium 6-30 tablet (25 Seyb old 25 MCG oral 00:00: mcg total) - Tablet 00 by mouth Externa daily l Levothyroxi 2021-0 Yes 25ug Take 1 Sheree ey ne Sodium 6-30 tablet (25 Seyb old 25 MCG oral 00:00: mcg total) - Tablet 00 by mouth Externa daily l Levothyroxi 2021-0 Yes 25ug Take 1 Sheree ey ne Sodium 6-30 tablet (25 Seyb old 25 MCG oral 00:00: mcg total) - Tablet 00 by mouth Externa daily l Levothyroxi 2021-0 Yes 25ug Take 1 Sheree ey ne Sodium 6-30 tablet (25 Seyb old 25 MCG oral 00:00: mcg total) - Tablet 00 by mouth Externa daily l Levothyroxi 0 Yes 25ug Take 1 Sheree ey ne Sodium 6-30 tablet (25 Seyb old 25 MCG oral 00:00: mcg total) - Tablet 00 by mouth Externa daily l Levothyroxi 0 Yes 25ug Take 1 Sheree ey ne Sodium 6-30 tablet (25 Seyb old 25 MCG oral 00:00: mcg total) - Tablet 00 by mouth Externa daily l Levothyroxi 2021-0 Yes 25ug Take 1 Sheree ey ne Sodium 6-30 tablet (25 Seyb old 25 MCG oral 00:00: mcg total) - Tablet 00 by mouth Externa daily l Levothyroxi 2021-0 Yes 25ug Take 1 Sheree ey ne Sodium 6-30 tablet (25 Seyb old 25 MCG oral 00:00: mcg total) - Tablet 00 by mouth Externa daily l Lactulose 0 Yes 20g Q.[id number] Take 30 mL Marilynn 20 GM/30ML 6-27 [id number] (20 g Se ybold oral 00:00: 3D total) by - Solution 00 mouth 3 Externa times l daily as needed Benadryl, 2021-0 Yes 5mL Q.25D Swish and Ke lsey Maalox, 627 swallow 5 Seybold Lidocaine 00:00: mL every 6 - Viscous HCl 00 hours as Exte rna (Magic needed l Mouthwash-E qual Ratio) Lactulose 0 Yes 20g Q.[id number] Take 30 mL Marilynn 20 GM/30ML 6-27 [id number] (20 g Se ybold oral 00:00: 3D total) by - Solution 00 mouth 3 Externa times l daily as needed Fahad, 2021-0 Yes 5mL Q.25D Swish and Ke lsey Maalox, 11-11 swallow 5 Seybold Lidocaine 00:00: mL every 6 - Viscous HCl 00 hours as Exte rna (Magic needed l Mouthwash-E qual Ratio) Fahad, 2021-0 Yes 5mL Q.25D Swish and Ke lsey Maalox, 11-11 swallow 5 Seybold Lidocaine 00:00: mL every 6 - Viscous HCl 00 hours as Exte rna (Magic needed l Mouthwash-E qual Ratio) Fahad, 2021-0 Yes 5mL Q.25D Swish and Ke lsey Maalox, 11-11 swallow 5 Seybold Lidocaine 00:00: mL every 6 - Viscous HCl 00 hours as Exte rna (Magic needed l Mouthwash-E qual Ratio) Fahad, 2021-0 Yes 5mL Q.25D Swish and Ke lsey Maalox, 11-11 swallow 5 Seybold Lidocaine 00:00: mL every 6 - Viscous HCl 00 hours as Exte rna (Magic needed l Mouthwash-E qual Ratio) Fahad, 2021-0 Yes 5mL Q.25D Swish and Ke lsey Maalox, 11-11 swallow 5 Seybold Lidocaine 00:00: mL every 6 - Viscous HCl 00 hours as Exte rna (Magic needed l Mouthwash-E qual Ratio) Fahad, 2021-0 Yes 5mL Q.25D Swish and Ke lsey Maalox, 11-11 swallow 5 Seybold Lidocaine 00:00: mL every 6 - Viscous HCl 00 hours as Exte rna (Magic needed l Mouthwash-E qual Ratio) Fahad, 2021-0 Yes 5mL Q.25D Swish and Ke lsey Maalox, 11-11 swallow 5 Seybold Lidocaine 00:00: mL every 6 - Viscous HCl 00 hours as Exte rna (Magic needed l Mouthwash-E qual Ratio) Fahad, 2021-0 Yes 5mL Q.25D Swish and Ke lsey Maalox, 11-11 swallow 5 Seybold Lidocaine 00:00: mL every 6 - Viscous HCl 00 hours as Exte rna (Magic needed l Mouthwash-E qual Ratio) Fahad, 0 Yes 5mL Q.25D Swish and Ke lsey Maalox, 11-11 swallow 5 Seybold Lidocaine 00:00: mL every 6 - Viscous HCl 00 hours as Exte rna (Magic needed l Mouthwash-E qual Ratio) [place]ad, Yes 5mL Q.25D Swish and Ke lsey Maalox, 11-11 swallow 5 Seybold Lidocaine 00:00: mL every 6 - Viscous HCl 00 hours as Exte rna (Magic needed l Mouthwash-E qual Ratio) F[place]ad, Yes 5mL Q.25D Swish and Ke lsey Maalox, 11-11 swallow 5 Seybold Lidocaine 00:00: mL every 6 - Viscous HCl 00 hours as Exte rna (Magic needed l Mouthwash-E qual Ratio) Fahad, 0 Yes 5mL Q.25D Swish and Ke kwabenaey Maalox, 11-11 swallow 5 Seybold Lidocaine 00:00: mL every 6 - Viscous HCl 00 hours as Exte rna (Magic needed l Mouthwash-E qual Ratio) Fahad, Yes 5mL Q.25D Swish and Ke kwabenaey Maalox, 11-11 swallow 5 Seybold Lidocaine 00:00: mL every 6 - Viscous HCl 00 hours as Exte rna (Magic needed l Mouthwash-E qual Ratio) lidocaine Yes every 6 Unive rs (XYLOCAINE) 11-11 (six) ity of 20 mg/mL 00:00: hours as [place] (2%) 00 needed. viscous Anderso solution [facility] Tramadol Yes 50mg Q.25D Take 1 Marilynn HCl 50 MG 5-27 tablet (50 Seyb old oral Tablet 00:00: mg total) - 00 by mouth Externa every 6 l hours as needed for pain Tramadol Yes 50mg Q.25D Take 1 Marilynn HCl 50 MG 5-27 tablet (50 Seyb old oral Tablet 00:00: mg total) - 00 by mouth Externa every 6 l hours as needed for pain Tramadol 2021-0 Yes 50mg Q.25D Take 1 Marilynn HCl 50 MG 5-27 tablet (50 Seyb old oral Tablet 00:00: mg total) - 00 by mouth Externa every 6 l hours as needed for pain Tramadol 2-0 Yes 50mg Q.25D Take 1 Marilynn HCl 50 MG 5-27 tablet (50 Seyb old oral Tablet 00:00: mg total) - 00 by mouth Externa every 6 l hours as needed for pain Tramadol 2021-0 Yes 50mg Q.25D Take 1 Marilynn HCl 50 MG 5-27 tablet (50 Seyb old oral Tablet 00:00: mg total) - 00 by mouth Externa every 6 l hours as needed for pain Tramadol 2021-0 Yes 50mg Q.25D Take 1 Marilynn HCl 50 MG 5-27 tablet (50 Seyb old oral Tablet 00:00: mg total) - 00 by mouth Externa every 6 l hours as needed for pain Tramadol 2021-0 Yes 50mg Q.25D Take 1 Marilynn HCl 50 MG 5-27 tablet (50 Seyb old oral Tablet 00:00: mg total) - 00 by mouth Externa every 6 l hours as needed for pain Tramadol 2021-0 Yes 50mg Q.25D Take 1 Marilynn HCl 50 MG 5-27 tablet (50 Seyb old oral Tablet 00:00: mg total) - 00 by mouth Externa every 6 l hours as needed for pain Tramadol 2-0 Yes 50mg Q.25D Take 1 Marilynn HCl 50 MG 5-27 tablet (50 Seyb old oral Tablet 00:00: mg total) - 00 by mouth Externa every 6 l hours as needed for pain Tramadol 2-0 Yes 50mg Q.25D Take 1 Marilynn HCl 50 MG 5-27 tablet (50 Seyb old oral Tablet 00:00: mg total) - 00 by mouth Externa every 6 l hours as needed for pain Tramadol 2-0 Yes 50mg Q.25D Take 1 Marilynn HCl 50 MG 5-27 tablet (50 Seyb old oral Tablet 00:00: mg total) - 00 by mouth Externa every 6 l hours as needed for pain Tramadol 2-0 Yes 50mg Q.25D Take 1 Marilynn HCl 50 MG 5-27 tablet (50 Seyb old oral Tablet 00:00: mg total) - 00 by mouth Externa every 6 l hours as needed for pain Tramadol Yes 50mg Q.25D Take 1 Marilynn HCl 50 MG 5-27 tablet (50 Seyb old oral Tablet 00:00: mg total) - 00 by mouth Externa every 6 l hours as needed for pain Tramadol Yes 50mg Q.25D Take 1 Marilynn HCl 50 MG 5-27 tablet (50 Seyb old oral Tablet 00:00: mg total) - 00 by mouth Externa every 6 l hours as needed for pain traMADol Yes as needed. Uni vers (ULTRAM) 50 5-27 ity of mg tablet 00:00: [place] 00 [facility] lidocaine-p Yes APPLY A Uni vers rilocaine 5-25 DIME-SIZED ity of (EMLA) 00:00: AMOUNT TO [place] 2.5-2.5% 00 PORT-A-CAT MD cream H SITE AND Anderso COVER WITH n OCCLUSIVE Cancer DRESSING Center ONE HOUR BEFORE PORT ACCESS. ondansetron Yes Take one [place] (ZOFRAN) 8 5-25 tablet by ity of mg tablet 00:00: mouth [place] 00 every 8 MD hours as Anderso needed for n nausea. [facility] Lidocaine-P Yes [id number] Apply K elsey rilocaine 5-24 dime-sized Seyb old (EMLA) 00:00: amount to cream 00 port-a-cat 2.5-2.5 % h site and cover with occlusive dressing 1 hour before port access Ondansetron Yes [id number] Take one Marilynn (ZOFRAN) 8 5-24 tablet by Seyb old MG oral 00:00: mouth tablet 00 every 8 hours as needed for nausea. Olanzapine Yes [id number] Take 1 K elsey (ZYPREXA) 5 5-24 tablet by Sey bold MG oral 00:00: mouth tablet 00 daily for 4 days, starting on day 1 of each chemothera py treatment Lidocaine-P Yes [id number] Apply K elsey rilocaine 5-24 dime-sized Seyb old (EMLA) 00:00: amount to - cream 00 port-a-cat Externa 2.5-2.5 % h site and l cover with occlusive dressing 1 hour before port access Ondansetron 0 Yes [id number] Take one Marilynn (ZOFRAN) 8 5-24 tablet by Seyb old MG oral 00:00: mouth - tablet 00 every 8 Externa hours as l needed for nausea. Olanzapine 0 Yes [id number] Take 1 K elsey (ZYPREXA) 5 5-24 tablet by Sey bold MG oral 00:00: mouth - tablet 00 daily for Externa 4 days, l starting on day 1 of each chemothera py treatment Lidocaine-P 2021-0 Yes [id number] Apply K elsey rilocaine 5-24 dime-sized Seyb old (EMLA) 00:00: amount to - cream 00 port-a-cat Externa 2.5-2.5 % h site and l cover with occlusive dressing 1 hour before port access Ondansetron 0 Yes [id number] Take one Marilynn (ZOFRAN) 8 5-24 tablet by Seyb old MG oral 00:00: mouth - tablet 00 every 8 Externa hours as l needed for nausea. Olanzapine Yes [id number] Take 1 K elsey (ZYPREXA) 5 5-24 tablet by Sey bold MG oral 00:00: mouth - tablet 00 daily for Externa 4 days, l starting on day 1 of each chemothera py treatment Lidocaine-P 2021-0 2022- No [id number] Apply Marilynn rilocaine 5-24 10-10 dime-sized Sey bold (EMLA) 00:00: 00:00 amount to - cream 00 :00 port-a-cat Externa 2.5-2.5 % h site and l cover with occlusive dressing 1 hour before port access Ondansetron 0 2022- No [id number] Take one Marilynn (ZOFRAN) 8 5-24 10-10 tablet by Sey bold MG oral 00:00: 00:00 mouth - tablet 00 :00 every 8 Externa hours as l needed for nausea. Olanzapine 0 2022- No [id number] Take 1 Marilynn (ZYPREXA) 5 5-24 10-10 tablet by Se ybold MG oral 00:00: 00:00 mouth - tablet 00 :00 daily for Externa 4 days, l starting on day 1 of each chemothera py treatment hydroxyzine 2021- No 50mg Take 50 mg [facility] HCl 10-03-19 by mouth. ity of (ATARAX) 50 10:24: 00:00 [place] mg tablet 00 :00 MD [facility] day [facility] furosemide 2021- No 20mg Take 20 mg [facility] (LASIX) 20 18 -18 by mouth. ity of mg tablet 21:46: 00:00 [place] 56 :00 MD [facility] day [facility] HYDROcodone 2021- No 1{tbl} Take 1 U nivers -acetaminop 18 -18 tablet by it y of hen (NORCO) 21:46: 00:00 mouth. [place] as 7.5 mg-325 56 :00 MD mg per Anderso tablet n [facility] Multiple Yes Take by Marilynn Vitamin 5-16 mouth Seybold (MULTI 09:15: daily VITAMIN 51 MENS OR) Nitroglycer 0 Yes 1 tablet Ke lsey in 0.4 MG 5-16 under the Seybo ld sublingual 09:15: tongue at SL Tab 51 onset of attack. Repeat as needed up to 3 times. Bupropion 0 Yes 300mg Take 300 Renate sey HCL XL 300 5-16 mg by Seybold MG OR TB24 09:15: mouth 51 daily Naproxen 2021-0 Yes 220mg Take 220 Sheree ey Sodium 220 5-16 mg by Seybold MG oral 09:15: mouth 2 Tablet 51 times daily (with meals) Acetaminoph 0 Yes 500mg Q.25D Take 500 Marilynn en 5-16 mg by Seybold (TYLENOL) 09:15: mouth 500 MG oral 51 every 6 Tablet hours as needed for pain Multiple 2021-0 Yes Take by Marilynn Vitamin 5-16 mouth Seybold (MULTI 09:15: daily VITAMIN 51 MENS OR) Nitroglycer 2021-0 Yes 1 tablet Ke lsey in 0.4 MG 5-16 under the Seybo ld sublingual 09:15: tongue at SL Tab 51 onset of attack. Repeat as needed up to 3 times. Bupropion 0 Yes 300mg Take 300 Renate sey HCL XL 300 5-16 mg by Seybold MG OR TB24 09:15: mouth 51 daily Naproxen Yes 220mg Take 220 Sheree ey Sodium 220 5-16 mg by Seybold MG oral 09:15: mouth 2 Tablet 51 times daily (with meals) Acetaminoph Yes 500mg Q.25D Take 500 Marilynn en 5-16 mg by Seybold (TYLENOL) 09:15: mouth 500 MG oral 51 every 6 Tablet hours as needed for pain Baclofen Yes 10mg Q.[id number] Take 1 Marilynn MG oral 5-16 [id number] tablet (10 Seybold Tablet 00:00: 3D mg total) 00 by mouth 3 times daily as needed for muscle spasms or pain Baclofen Yes 10mg Q.[id number] Take 1 Marilynn MG oral 5-16 [id number] tablet (10 Seybold Tablet 00:00: 3D mg total) 00 by mouth 3 times daily as needed for muscle spasms or pain Baclofen Yes 10mg Q.[id number] Take 1 Marilynn MG oral 5-16 [id number] tablet (10 Seybold Tablet 00:00: 3D mg total) - 00 by mouth 3 Externa times l daily as needed for muscle spasms or pain Baclofen Yes 10mg Q.[id number] Take 1 Marilynn MG oral 5-16 [id number] tablet (10 Seybold Tablet 00:00: 3D mg total) - 00 by mouth 3 Externa times l daily as needed for muscle spasms or pain Baclofen Yes 10mg Q.[id number] Take 1 Marilynn MG oral 5-16 [id number] tablet (10 Seybold Tablet 00:00: 3D mg total) - 00 by mouth 3 Externa times l daily as needed for muscle spasms or pain Baclofen Yes 10mg Q.[id number] Take 1 Marilynn MG oral 5-16 [id number] tablet (10 Seybold Tablet 00:00: 3D mg total) - 00 by mouth 3 Externa times l daily as needed for muscle spasms or pain Baclofen Yes 10mg Q.[id number] Take 1 Marilynn MG oral 5-16 [id number] tablet (10 Seybold Tablet 00:00: 3D mg total) - 00 by mouth 3 Externa times l daily as needed for muscle spasms or pain Baclofen 10 2021-0 Yes 10mg Q.[id number] Take 1 Marilynn MG oral 5-16 [id number] tablet (10 Seybold Tablet 00:00: 3D mg total) - 00 by mouth 3 Externa times l daily as needed for muscle spasms or pain Baclofen 10 2021-0 Yes 10mg Q.[id number] Take 1 Marilynn MG oral 5-16 [id number] tablet (10 Seybold Tablet 00:00: 3D mg total) - 00 by mouth 3 Externa times l daily as needed for muscle spasms or pain Baclofen 10 2021-0 202- No 10mg Q.[id number] Take 1 Marilynn MG oral 5-16 12-05 [id number] tablet (10 Seybold Tablet 00:00: 00:00 3D mg total) - 00 :00 by mouth 3 Externa times l daily as needed for muscle spasms or pain baclofen 0 Yes TAKE ONE Unive rs (LIORESAL) 5-07 (1) TABLET ity of 10 mg 00:00: BY MOUTH 2 [place] tablet 00 TIMES MD DAILY Anderso NEEDED FOR n MUSCLE Cancer SPASMS OR Center PAIN. baclofen 2021-0 2022- No 10mg Take 10 mg [place] (LIORESAL) 5-07 10-26 by mouth ity of 10 mg 00:00: 00:00 as needed. [place] tablet 00 :00 [facility] Nitroglycer 2021-0 Yes 1 tablet Ke lsey in 0.4 MG 4-26 under the Seybo ld sublingual 14:52: tongue at SL Tab 36 onset of attack. Repeat as needed up to 3 times. Acetaminoph 2021-0 Yes 500mg Q.25D Take 500 Marilynn en 4-26 mg by Seybold (TYLENOL) 14:52: mouth 500 MG oral 36 every 6 Tablet hours as needed for pain Nitroglycer 2021-0 Yes 1 tablet Ke lsey in 0.4 MG 4-26 under the Seybo ld sublingual 14:52: tongue at SL Tab 36 onset of attack. Repeat as needed up to 3 times. Acetaminoph 0 Yes 500mg Q.25D Take 500 Marilynn en 4-26 mg by Seybold (TYLENOL) 14:52: mouth 500 MG oral 36 every 6 Tablet hours as needed for pain Nitroglycer 0 Yes 1 tablet Ke lsey in 0.4 MG 4-26 under the Seybo ld sublingual 14:52: tongue at SL Tab 36 onset of attack. Repeat as needed up to 3 times. Acetaminoph Yes 500mg Q.25D Take 500 Marilynn en 4-26 mg by Seybold (TYLENOL) 14:52: mouth 500 MG oral 36 every 6 Tablet hours as needed for pain Multiple 0 Yes Take by Marilynn Vitamin 4-26 mouth Seybold (MULTI 14:50: daily VITAMIN 56 MENS OR) Bupropion 0 Yes 300mg Take 300 Renate sey HCL XL 300 4-26 mg by Seybold MG OR TB24 14:50: mouth 56 daily Naproxen 0 Yes 220mg Take 220 Sheree ey Sodium 220 4-26 mg by Seybold MG oral 14:50: mouth 2 Tablet 56 times daily (with meals) Multiple 0 Yes Take by Marilynn Vitamin 4-26 mouth Seybold (MULTI 14:50: daily VITAMIN 56 MENS OR) Bupropion 0 Yes 300mg Take 300 Renate sey HCL XL 300 4-26 mg by Seybold MG OR TB24 14:50: mouth 56 daily Naproxen 0 Yes 220mg Take 220 Sheree ey Sodium 220 4-26 mg by Seybold MG oral 14:50: mouth 2 Tablet 56 times daily (with meals) Multiple 0 Yes Take by Marilynn Vitamin 4-26 mouth Seybold (MULTI 14:50: daily VITAMIN 56 MENS OR) Bupropion 2021-0 Yes 300mg Take 300 Renate sey HCL XL 300 4-26 mg by Seybold MG OR TB24 14:50: mouth 56 daily Naproxen 2021-0 Yes 220mg Take 220 Sheree ey Sodium 220 4-26 mg by Seybold MG oral 14:50: mouth 2 Tablet 56 times daily (with meals) Onabotulinu 2021-0 2021- No [id number] 200U K elsey mtoxinA 4-13 04-13 Seybold [200 Units] 22:00: 21:59 - Physician 00 :00 Administere d ([id number]) Onabotulinu 2- No [id number] 200U 200 unit, Marilynn mtoxinA 08-28 Physician Seybol d [200 Units] 22:00: 21:59 Administer - Physician 00 :00 ed, ONCE, Administere 1 dose, On d ([id number]) [facility] 08/28/21 at 1700 Multiple Yes Take by Marilynn Vitamin 4-13 mouth Seybold (MULTI 10:53: daily VITAMIN 48 MENS OR) Nitroglycer Yes 1 tablet Ke lsey in 0.4 MG 4-13 under the Seybo ld sublingual 10:53: tongue at SL Tab 48 onset of attack. Repeat as needed up to 3 times. Bupropion Yes 300mg Take 300 Renate sey HCL XL 300 4-13 mg by Seybold MG OR TB24 10:53: mouth 48 daily Naproxen Yes 220mg Take 220 Sheree ey Sodium 220 4-13 mg by Seybold MG oral 10:53: mouth 2 Tablet 48 times daily (with meals) Acetaminoph Yes 500mg Q.25D Take 500 Marilynn en 4-13 mg by Seybold (TYLENOL) 10:53: mouth 500 MG oral 48 every 6 Tablet hours as needed for pain fluoride, Yes PLACE A Unive rs sodium, 4-07 THIN ity of (DENTAGEL) 00:[place] 1.1% dental 00 CUSTOM MD gel TRAYS [place] TWICE n DAILY. Cancer AFTER Center INSERTING TRAYS IN MOUTH, BITE ON THEM TO CREATE A PUMPING ACTION. KEEP IN THE MOUTH Multiple Yes Take by Marilynn Vitamin 3-30 mouth Seybold (MULTI 12:57: daily VITAMIN 26 MENS OR) Nitroglycer Yes 1 tablet Ke lsey in 0.4 MG 3-30 under the Seybo ld sublingual 12:57: tongue at SL Tab 26 onset of attack. Repeat as needed up to 3 times. Bupropion Yes 300mg Take 300 Renate sey HCL XL 300 3-30 mg by Seybold MG OR TB24 12:57: mouth 26 daily Naproxen 0 Yes 220mg Take 220 Sheree ey Sodium 220 3-30 mg by Seybold MG oral 12:57: mouth 2 Tablet 26 times daily (with meals) Acetaminoph 0 Yes 500mg Q.25D Take 500 Marilynn en 3-30 mg by Seybold (TYLENOL) 12:57: mouth 500 MG oral 26 every 6 Tablet hours as needed for pain Multiple Yes Take by Marilynn Vitamin 3-29 mouth Seybold (MULTI 10:59: daily VITAMIN 53 MENS OR) Nitroglycer Yes 1 tablet Ke [...] Tablet hours as needed for pain Pregabalin Yes [id number] Lyrica K elsey (Lyrica) 25 3-29 25mg 1 po Sey bold MG oral 00:00: qd x 3 Capsule 00 days, 1 po q 12 x 3 days, 1 po q 8 for nerve pain #90 To discontinu e, taper off Pregabalin Yes [id number] Lyrica K elsey (Lyrica) 25 3-29 25mg 1 po Sey bold MG oral 00:00: qd x 3 Capsule 00 days, 1 po q 12 x 3 days, 1 po q 8 for nerve pain #90 To discontinu e, taper off Pregabalin 0 Yes [id number] Lyrica K elsey (Lyrica) 25 3-29 25mg 1 po Sey bold MG oral 00:00: qd x 3 Capsule 00 days, 1 po q 12 x 3 days, 1 po q 8 for nerve pain #90 To discontinu e, taper off Pregabalin 2022-0 Yes [id number] Lyrica Damaris lestery (Lyrica) 25 3-29 25mg 1 po Sey bold MG oral 00:00: qd x 3 Capsule 00 days, 1 po q 12 x 3 days, 1 po q 8 for nerve pain #90 To discontinu e, taper off Pregabalin 2022-0 Yes [id number] Lyrica K elsey (Lyrica) 25 3-29 25mg 1 po Sey bold MG oral 00:00: qd x 3 Capsule 00 days, 1 po q 12 x 3 days, 1 po q 8 for nerve pain #90 To discontinu e, taper off Pregabalin 2022-0 Yes [id number] Lyrica K elsey (Lyrica) 25 3-29 25mg 1 po Sey bold MG oral 00:00: qd x 3 Capsule 00 days, 1 po q 12 x 3 days, 1 po q 8 for nerve pain #90 To discontinu e, taper off Pregabalin 2022-0 Yes [id number] Lyrica K elsey (Lyrica) 25 3-29 25mg 1 po Sey bold MG oral 00:00: qd x 3 Capsule 00 days, 1 po q 12 x 3 days, 1 po q 8 for nerve pain #90 To discontinu e, taper off Pregabalin 2022-0 Yes [id number] Lyrica K elsey (Lyrica) 25 3-29 25mg 1 po Sey bold MG oral 00:00: qd x 3 Capsule 00 days, 1 po q 12 x 3 days, 1 po q 8 for nerve pain #90 To discontinu e, taper off gabapentin 2021-0 2021- No TAKE ONE [place] (NEURONTIN) 08-13 (1) ity of 100 mg 00:00: 00:00 [place] :[place] MOUTH ONCE A DAY [place] FOR 3 DAYS n , THEN 1 Cancer CAPSULE Center EVERY 12 HOURS FOR 3 DAYS , THEN 1 CAPSULE EVERY 8 HOURS FOR NERVE pregabalin 2021-0 2021- No TAKE ONE [place] (LYRICA) 25 08-13 (1) ity of mg capsule 00:00: 00:00 CAPSULE(S) [place] 00 :00 BY MOUTH MD DAILY FOR [place] 3 DAYS, n THEN 1 Cancer CAPSULE Center EVERY 12 HOURS FOR 3 DAYS, THEN 1 CAPSULE EVERY EIGHT HOURS. TO DISCONTIN Ciprofloxac 2021-0 Yes 500mg Take 1 Renate sey in HCl 3-18 tablet Seybold (Cipro) 500 00:00: (500 mg MG oral 00 total) by Tablet mouth every 12 hours Ciprofloxac 2-0 Yes 500mg Take 1 Renate sey in HCl 3-18 tablet Seybold (Cipro) 500 00:00: (500 mg MG oral 00 total) by Tablet mouth every 12 hours Ciprofloxac 2021-0 Yes 500mg Take 1 Renate sey in HCl 3-18 tablet Seybold (Cipro) 500 00:00: (500 mg MG oral 00 total) by Tablet mouth every 12 hours Ciprofloxac 2021-0 2022- No 500mg Take 1 Ke lsey in HCl 3-18 04-26 tablet Seybold (Cipro) 500 00:00: 00:00 (500 mg MG oral 00 :00 total) by Tablet mouth every 12 hours Methylpredn 2021-0 2021- No [id number] 40mg Marilynn isolone 2-07 - 07 Seybold Acetate 16:45: 17:31 (Depo-Medro 00 :00 l) 40 mg/ml - Physician Administere d ([id number]) Methylpredn 2021-0 2021- No [id number] 40mg 40 mg, Marilynn isolone 2-11 16- 07 Physician Seybol d Acetate 16:45: 17:31 Administer (Depo-Medro 00 :00 ed, ONCE, l) 40 mg/ml 1 dose, On - Physician 06/24/21 Administere at 1045 d ([id number]) Mirtazapine 2021-0 Yes 15mg Take 15 mg Marilynn 15 MG oral 2-07 by mouth Seybo ld Tablet 09:35: nightly 13 Patient takes half a tab nightly Acetaminoph 2021-0 Yes 500mg Q6H Take 500 K elsey en 2-07 mg by Seybold (TYLENOL) 09:34: mouth 500 MG oral 58 every 6 Tablet hours as needed for pain Multiple 2021-0 Yes Take by Marilynn Vitamin 2-07 mouth [...] Tab 57 times daily (with meals) Gabapentin Yes Neurontin Ke lsey 100 MG oral [...] for muscle spasms or pain Baclofen 10 2021-0 Yes 10mg Q.5D Take 1 Sheree ey MG oral 2-07 tablet (10 Seybol d Tablet 00:00: mg total) 00 by mouth 2 times daily as needed for muscle spasms or pain Baclofen 10 2021-0 Yes 10mg Q.5D Take 1 Sheree ey MG oral 2-07 tablet (10 Seybol d Tablet 00:00: mg total) 00 by mouth 2 times daily as needed for muscle spasms or pain Baclofen 10 2021-0 Yes 10mg Q.5D Take 1 Sheree ey MG oral 2-07 tablet (10 Seybol d Tablet 00:00: mg total) 00 by mouth 2 times daily as needed for muscle spasms or pain Baclofen 10 2021-0 Yes 10mg Q.5D Take 1 Sheree ey MG oral 2-07 tablet (10 Seybol d Tablet 00:00: mg total) 00 by mouth 2 times daily as needed for muscle spasms or pain Baclofen 10 2021-0 Yes 10mg Q.5D Take 1 Sheree ey MG oral 2-07 tablet (10 Seybol d Tablet 00:00: mg total) 00 by mouth 2 times daily as needed for muscle spasms or pain Baclofen 10 2021-0 202- No 10mg Q.5D Take 1 Renate sey MG oral 2-07 05-16 tablet (10 Seybo ld Tablet 00:00: 00:00 mg total) 00 :00 by mouth 2 times daily as needed for muscle spasms or pain Gabapentin 2021-0 2021- No Neurontin K elsey 100 MG oral 2- 03-29 100mg 1 po S eybold Capsule 00:00: 00:00 QD x 3 00 :00 days, 1 po q 12 hrs. X 3 days, 1 po q 8 for nerve pain #90 To discontinu e, taper off Multiple Yes Take by Marilynn Vitamin 1-20 mouth Seybold (MULTI 10:05: daily VITAMIN 21 MENS OR) Nitroglycer 0 Yes 1 tablet Elieser cordova in 0.4 MG 1-20 under the Seybo [...] Patient takes half a tab nightly Acetaminoph 2021-0 Yes 500mg Q6H Take 500 K elsey en 1-20 mg by Seybold (TYLENOL) 10:05: mouth 500 MG oral 21 every 6 Tablet hours as needed for pain Multiple 2021-0 Yes Take by Marilynn Vitamin 1-20 mouth Seybold (MULTI 10:05: daily VITAMIN 21 MENS OR) Nitroglycer 2022-0 Yes 1 tablet Ke lsey in 0.4 [...] OR TB24 09:55: mouth 00 daily Naproxen 0 Yes 220mg Take 220 Sheree ey Sodium 1-17 mg by Seybold (Aleve) 220 09:55: mouth 2 MG oral Tab 00 times daily (with meals) Acetaminoph 0 Yes 500mg Q6H Take 500 K elsey en 1-17 mg by Seybold (TYLENOL) 09:55: mouth 500 MG oral 00 every 6 Tablet hours as needed for pain brimonidine 2020-05- No PLACE 1 [place] 0.2% 2-17 -18 DROP INTO ity of ophthalmic 00:00: 00:00 [place] solution 00 :00 EYE 2 MD TIMES [place] DAILY FOR n 7 DAYS Cancer [place] Mirtazapine 2020-05 Yes 15mg Take 15 mg [...] Suspension times daily *BDP* Brimonidine 2020-05- No [id number] 1[drp] Place 1 Marilynn Tartrate 2-16 12-24 drop into Seybo ld 0.2 % 00:00: 05:59 the right ophthalmic 00 :00 eye 2 Solution times daily for 7 days diclofenac 2020-05- No Patricia s (VOLTAREN) 2-15 05-18 ity of 0.1% 00:00: 00:00 [place] ophthalmic 00 :00 solution Andernestine [facility] prednisoLON 2020-05- No Univjonnie rs E acetate 2-15 05-18 ity of (PRED 00:00: 00:00 [place] FORTE) 1% 00 :00 ophthalmic Andernestine hernandez [facility] Moxifloxaci 2020-05- No 1[drp] Place 1 Marilynn n HCl 2-15 12-23 drop into Seybold (Vigamox) 00:00: 05:59 the right 0.5 % 00 :00 eye 4 ophthalmic times Solution daily for 7 days *BDP* Multiple 2020-05 Yes Take by Marilynn Vitamin 2-09 mouth Seybold (MULTI 14:26: daily VITAMIN 50 MENS OR) Nitroglycer 2020-05 Yes 1 tablet Ke lsey in 0.4 MG 2-09 under the Seybo [...] hours as needed for pain Tamsulosin 2020-05- .4mg Take 0.4 Ke lsey HCl 0.4 [...] 6 Tablet hours as needed for pain tamsulosin 2020-05 Yes TAKE ONE Uni vers (FLOMAX) 0-23 (1) ity of 0.4 mg 24 00:00: CAPSULE(S) [place] capsule 00 BY MOUTH MD TWICE A . [facility] Multiple 2020-05 Yes Take by Marilynn Vitamin [...] capsule Seybol d oral 00:00: (0.4 mg - Capsule 00 total) by Externa mouth 2 l times daily Tamsulosin 2020-05 Yes .4mg Take 1 Kelse y HCl 0.4 MG 0-22 capsule Seybol d oral 00:00: (0.4 mg - Capsule 00 total) by Externa mouth 2 l times daily Tamsulosin 2020-05 Yes .4mg Take 1 Kelse y HCl 0.4 MG 0-22 capsule Seybol d oral 00:00: (0.4 mg - Capsule 00 total) by Externa mouth 2 l times daily Tamsulosin 2020-05 Yes .4mg Take 1 Kelse y HCl 0.4 MG 0-22 capsule Seybol d oral 00:00: (0.4 mg - Capsule 00 total) by Externa mouth 2 l times daily Tamsulosin 2020-05 Yes .4mg Take 1 Kelse y HCl 0.4 MG 0-22 capsule Seybol d oral 00:00: (0.4 mg - Capsule 00 total) by Externa mouth 2 l times daily Tamsulosin 2020-05 Yes .4mg Take 1 Kelse y HCl 0.4 MG 0-22 capsule Seybol d oral 00:00: (0.4 mg - Capsule 00 total) by Externa mouth 2 l times daily Tamsulosin 2020-05 Yes .4mg Take 1 Kelse y HCl 0.4 MG 0-22 capsule Seybol d oral 00:00: (0.4 mg - Capsule 00 total) by Externa mouth 2 l times daily Tamsulosin 2020-05 Yes .4mg Take [...] 00 total) by mouth 2 times daily tamsulosin 2020-05 Yes .4mg Take 0.4 Uni vers (FLOMAX) 0-22 mg by ity of 0.4 mg 24 00:00: mouth [place] hr capsule 00 daily. [facility] Tamsulosin 2020-05- No .4mg Take 1 Sheree ey HCl 0.4 MG 0-22 12-05 capsule Seybo ld oral 00:00: 00:00 (0.4 mg - Capsule 00 :00 total) by Externa mouth 2 l times daily Ciprofloxac 2020-05- No 500mg Take [...] [facility] (REMERON) 0-13 by mouth [facility] 15 MG 13:53: nightly. Medical tablet 01 Center naproxen 2020-05 Yes 220mg Take [address] [facility] (ALEVE,ANAP 0-13 mg by [facility] ENEDELIA,MIDOL) 13:53: mouth 2 Medi ashlyn 220 MG 01 (two) Center tablet times daily as needed. multivitami 2020-05 Yes 1{tbl} QD Take [address] n per 0-13 tablet by [facility] tablet 13:53: mouth Medical 01 daily. [place] HYDROcodone 2020-05 Yes 1{tbl} Take [address] -acetaminop 0-12 tablet by Papi es hen (NORCO 13:53: mouth Medica l 7.5-325) 19 every 4 Center 7.5-325 mg (four) per tablet hours as needed for Pain. hydrOXYzine 2020-05 Yes 50mg Take [address] [facility] (ATARAX) 50 0-12 by mouth Luke s MG tablet 13:53: as needed Med ical 19 for Center Anxiety . tamsulosin 2020-05 Yes .4mg QD Take 0.[address] [facility] (FLOMAX) 0-12 mg by [facility] 0.4 mg Cp24 13:53: mouth Medic al 24 hr 18 daily. [place] capsule aspirin 81 2020-05 Yes 81mg QD Take [address] MG chewable 0-12 by mouth Luke s tablet 13:53: daily. Medical 18 Center buPROPion 2020-05 Yes 300mg QD Take [address] [facility] (WELLBUTRIN 0-12 mg by [facility] XL) 150 MG 13:53: mouth Medica l 24 hr 18 daily . [place] tablet nitroglycer 2020-[address] 0[address] in 0-12 mg under [facility] (NITROSTAT) 13:53: the tongue Medical 0.4 MG [...] n (LIPITOR) 0-12 by mouth Luke s 20 MG 13:53: daily. Medical tablet 18 Center clindamycin 2020-05 Yes Apply [facility] (CLINDAGEL) 0-12 topically Papi es 1 % gel 13:53: 2 (two) Medical 18 times Center daily as needed. furosemide 2020-05 Yes 20mg Take [address] (LASIX) 20 0-12 by mouth [facility] MG tablet 13:53: as needed Med ical [...] hours as oral Tablet needed for pain acetaminoph 2020-05 No TAKE ONE U nivers en-codeine 0-11 - (1) TO 2 ity of (TYLENOL 00:00: 00:00 [place] #3[place] 300 00 :00 MOUTH MD mg-30 mg EVERY 6 [place] tablet HOURS n NEEDED FOR Cancer PAIN. Center Acetaminoph 2020-05- No 1{tbl} Q6H Take 1-2 Marilynn en-Codeine 0-11 12-06 tablets by Se ybold (TYLENOL/CO 00:00: 00:00 mouth DEINE #3) 00 :00 every 6 300-30 MG hours as oral Tablet needed for pain sucralfate 2020-05 No 1g Q.25D Take [address] (CARAFATE) 0-08 10-08 by mouth 4 Vickie kes 100 mg/mL 11:48: 00:00 (four) Medic al suspension 32 :00 times Center daily. ondansetron 2020-05 No 4mg Take [address] [facility] (ZOFRAN) 4 0-08 10-08 by mouth 3 Vickie kes MG tablet 11:48: 00:00 (three) Medi ashlyn 29 :00 times Center daily as needed for Nausea. folic acid 2020-05 No 1mg QD Take [address] (FOLVITE) 1 0-08 10-08 by mouth Papi es MG tablet 11:47: 00:00 daily. Medic al 15 :00 Center doxycycline 2020-05 No 100mg Q.5D Take [address] [facility] (DORYX) 100 0-08 10-08 mg by [facility] MG EC 11:47: 00:00 mouth 2 Medical tablet 06 :00 (two) Center times daily. carvediloL 2020-05 No 6.25mg Take 6.[address] [facility] (COREG) 0-08 10-08 mg by [facility] 12.5 MG 11:46: 00:00 mouth 2 Medica [...] Patient takes half a tab nightly hydrOXYzine 2020-05 50mg Q.[id number] Take 50 mg Marilynn HCl 50 MG 0-05 10-05 [id number] by mouth 3 Seybold oral Tab 10:11: 00:00 3D times 46 :00 daily as needed for anxiety (Pt states he takes it to help him sleep as well) Naproxen Yes 220mg Take 220 Sheree ey Sodium 9-29 mg by Seybold (Aleve) 220 14:07: mouth 2 MG oral Tab 23 times daily (with meals) hydrOXYzine Yes 50mg Q.[id number] Take 50 mg Marilynn HCl 50 MG 9-29 [id number] by mouth 3 Seybold oral Tab 14:07: [...] MG OR TB24 14:07: mouth 23 daily metoprolol 2021- No TAKE ONE [place] succinate 10-23 (1) ity of (TOPROL XL) 00:00: 00:00 TABLET(S) [place] 25 mg 24 hr 00 :00 BY MOUTH tablet ONCE A [place] DAY. n Cancer Center ondansetron 2021- No TAKE ONE U nivers (ZOFRAN-ODT 10-23 (1) ity of ) 4 mg 00:00: 00:00 TABLET(S) [place] disintegrat 00 :00 BY MOUTH ing tablet EVERY [place] EIGHT n HOURS Cancer NEEDED FOR Center NAUSEA. Furosemide Yes [id number] 20mg Q24H Take 1 Marilynn 20 MG oral 5-06 tablet (20 Sey bold Tablet 00:00: mg total) 00 by mouth daily as needed For signs of volume overload Furosemide 2020-0 Yes [id number] 20mg Q24H Take 1 Marilynn 20 MG oral 5-06 tablet (20 Sey bold Tablet 00:00: mg total) 00 by mouth daily as needed For signs of volume overload Furosemide 2020-0 Yes [id number] 20mg Q24H Take 1 Marilynn 20 MG oral 5-06 tablet (20 Sey bold Tablet 00:00: mg total) 00 by mouth daily as needed For signs of volume overload Furosemide 2020-0 Yes [id number] 20mg Q24H Take 1 Marilynn 20 MG oral 5-06 tablet (20 Sey bold Tablet 00:00: mg total) 00 by mouth daily as needed For signs of volume overload Furosemide 2020-0 Yes [id number] 20mg Q24H Take 1 Marilynn 20 MG oral 5-06 tablet (20 Sey bold Tablet 00:00: mg total) 00 by mouth daily as needed For signs of volume overload Furosemide 2020-0 Yes [id number] 20mg Q24H Take 1 Marilynn 20 MG oral 5-06 tablet (20 Sey bold Tablet 00:00: mg total) 00 by mouth daily as needed For signs of volume overload Furosemide 2020-0 Yes [id number] 20mg Q24H Take 1 Marilynn 20 MG oral 5-06 tablet (20 Sey bold Tablet 00:00: mg total) 00 by mouth daily as needed For signs of volume overload Furosemide 2020-0 Yes [id number] 20mg Q24H Take 1 Marilynn 20 MG oral 5-06 tablet (20 Sey bold Tablet 00:00: mg total) 00 by mouth daily as needed For signs of volume overload Furosemide 2020-0 2021- No [id number] 20mg Q24H Take 1 Marilynn 20 MG oral 5-06 12-06 tablet (20 Se ybold Tablet 00:00: 00:00 mg total) 00 :00 by mouth daily as needed For signs of volume overload Ferrous 2020-0 Yes Marilynn Sulfate 4-19 Seybold Dried (Slow 00:00: Release 00 Iron) 45 MG oral Tab CR Ferrous 2020-0 Yes Marilynn Sulfate 4-19 Seybold Dried (Slow 00:00: Release 00 Iron) 45 MG oral Tab CR Ferrous 2020-0 Yes Marilynn Sulfate 4-19 Seybold Dried (Slow 00:00: Release 00 Iron) 45 MG oral Tab CR Ferrous 0 2020- No Marilynn Sulfate 4- 10-15 Seybold Dried (Slow 00:00: 00:00 Release 00 :00 Iron) 45 MG oral Tab CR Ferrous 0 2020- No Marilynn Sulfate 4-19 10-15 Seybold Dried (Slow 00:00: 00:00 Release 00 :00 Iron) 45 MG oral Tab CR tamsulosin Yes .4mg QD Take 0.[address] [facility] (FLOMAX) 3-03 mg by [facility] 0.4 mg Cp24 09:46: mouth Medic al 24 hr 16 daily. [place] capsule aspirin 81 Yes 81mg QD Take [address] MG chewable 3-03 by mouth Luke s tablet 09:46: daily. Medical 16 Center folic acid Yes 1mg QD Take [address] (FOLVITE) 1 3-03 by mouth Luke s MG tablet 09:46: daily. Medica l 16 [place] buPROPion Yes 300mg QD Take [address] [facility] [address] (WELLBUTRIN 3-03 mg by [facility] XL) 150 MG 09:46: mouth Medica l 24 hr 16 daily . Center tablet nitroglycer Yes .4mg Place 0.[address] in 3-03 mg under [facility] (NITROSTAT) 09:46: the tongue Medical 0.4 MG [...] n (LIPITOR) 3-03 by mouth Luke s 20 MG 09:46: daily. Medical tablet 16 Center carvediloL Yes 6.25mg Take 6.[address] [facility] (COREG) 3-03 mg by [facility] 12.5 MG 09:46: mouth 2 Medical tablet 16 (two) Center times daily with breakfast and dinner. clindamycin Yes Apply [facility] (CLINDAGEL) 3-03 topically Papi es 1 % gel 09:46: 2 (two) Medical 16 times Center daily as needed. doxycycline 0 Yes 100mg Q.5D Take [address] (DORYX) 100 3-03 mg by [facility] MG EC 09:46: mouth 2 Medical tablet 16 (two) Center times daily. furosemide 0 Yes 20mg Q.[id number] Take [address] [facility] (LASIX) 20 3-03 [id number] by mouth 3 [facility] MG tablet 09:46: 3W (three) Medic al 16 times a Center week MON/THU/FR I. HYDROcodone 0 Yes 1{tbl} Take [address] -acetaminop 3-03 tablet by Papi es hen (NORCO 09:46: mouth Medica l 7.5-325) 16 every 4 Center 7.5-325 mg (four) per tablet hours as needed for Pain. ondansetron 0 Yes 4mg Take [address] (ZOFRAN) 4 3-03 by mouth 3 Papi es MG tablet 09:46: (three) Medic al 16 times Center daily as needed for Nausea. sucralfate 0 Yes 1g Q.25D Take [address] [facility] (CARAFATE) 3-03 by mouth 4 Papi es 100 mg/mL 09:46: (four) Medica l suspension 16 times Center daily. hydrOXYzine Yes 50mg Take [address] [facility] (ATARAX) 50 3-03 by mouth 3 Vickie kes MG tablet 09:46: (three) Medic al 16 times Center daily as needed for Anxiety. tamsulosin 0 Yes .4mg QD Take 0.[address] [facility] (FLOMAX) 3-03 mg by [facility] 0.4 mg Cp24 09:46: mouth Medic al 24 hr 16 daily. Center capsule aspirin 81 0 Yes 81mg QD Take [address] MG chewable 3-03 by mouth Luke s tablet 09:46: daily. Medical 16 Center folic acid 0 Yes 1mg QD Take [address] (FOLVITE) 1 3-03 by mouth Luke s MG tablet 09:46: daily. Medica l 16 Center buPROPion 0 Yes 300mg QD Take [address] [facility] [address] (WELLBUTRIN 3-03 mg by [facility] XL) 150 MG 09:46: mouth Medica l 24 hr 16 daily . Center tablet nitroglycer Yes .4mg Place 0.[address] in 3-03 mg under [facility] (NITROSTAT) 09:46: the tongue Medical 0.4 MG [...] n (LIPITOR) 3-03 by mouth Luke s 20 MG 09:46: daily. Medical tablet 16 Center carvediloL Yes 6.25mg Take 6.[address] (COREG) 3-03 mg by [facility] 12.5 MG 09:46: mouth 2 Medical tablet 16 (two) Center times daily with breakfast and dinner. clindamycin Yes Apply [facility] (CLINDAGEL) 3-03 topically Papi es 1 % gel 09:46: 2 (two) Medical 16 times Center daily as needed. doxycycline Yes 100mg Q.5D Take [address] (DORYX) 100 3-03 mg by [facility] MG EC 09:46: mouth 2 Medical tablet 16 (two) Center times daily. furosemide Yes 20mg Q.[id number] Take [address] [facility] (LASIX) 20 3-03 [id number] by mouth 3 [facility] MG tablet 09:46: 3W (three) Medic al 16 times a Center week MON/WED/FR I. HYDROcodone Yes 1{tbl} Take [address] -acetaminop 3-03 tablet by Papi es hen (NORCO 09:46: mouth Medica l 7.5-325) 16 every 4 Center 7.5-325 mg (four) per tablet hours as needed for Pain. ondansetron Yes 4mg Take [address] (ZOFRAN) 4 3-03 by mouth 3 Papi es MG tablet 09:46: (three) Medic al 16 times Center daily as needed for Nausea. sucralfate Yes 1g Q.25D Take [address] [facility] (CARAFATE) 3-03 by mouth 4 Papi es 100 mg/mL 09:46: (four) Medica l suspension 16 times Center daily. hydrOXYzine Yes 50mg Take [address] [facility] (ATARAX) 50 3-03 by mouth 3 Vickie kes MG tablet 09:46: (three) Medic al 16 times Center daily as needed for Anxiety. tamsulosin Yes .4mg QD Take 0.[address] [facility] [address] (FLOMAX) 3-03 mg by [facility] 0.4 mg Cp24 09:46: mouth Medic al 24 hr 16 daily. Center capsule aspirin 81 Yes 81mg QD Take [address] MG chewable 3-03 by mouth Luke s tablet 09:46: daily. Medical 16 Center folic acid Yes 1mg QD Take [address] (FOLVITE) 1 3-03 by mouth Luke s MG tablet 09:46: daily. Medica l 16 Center buPROPion Yes 300mg QD Take [address] [facility] [address] (WELLBUTRIN 3-03 mg by [facility] XL) 150 MG 09:46: mouth Medica l 24 hr 16 daily . Center tablet nitroglycer Yes .4mg Place 0.[address] in 3-03 mg under [facility] (NITROSTAT) 09:46: the tongue Medical 0.4 MG [...] n (LIPITOR) 3-03 by mouth Luke s 20 MG 09:46: daily. Medical tablet 16 Center carvediloL Yes 6.25mg Take 6.[address] (COREG) 3-03 mg by [facility] 12.5 MG 09:46: mouth 2 Medical tablet 16 (two) Center times daily with breakfast and dinner. clindamycin Yes Apply [facility] (CLINDAGEL) 3-03 topically Papi es 1 % gel 09:46: 2 (two) Medical 16 times Center daily as needed. doxycycline Yes 100mg Q.5D Take [address] (DORYX) 100 3-03 mg by [facility] MG EC 09:46: mouth 2 Medical tablet 16 (two) Center times daily. furosemide 0 Yes 20mg Q.[id number] Take [address] [facility] (LASIX) 20 3-03 [id number] by mouth 3 [facility] MG tablet 09:46: 3W (three) Medic al 16 times a Center week MON/WED/FR I. HYDROcodone Yes 1{tbl} Take [address] -acetaminop 3-03 tablet by Papi es hen (NORCO 09:46: mouth Medica l 7.5-325) 16 every 4 Center 7.5-325 mg (four) per tablet hours as needed for Pain. ondansetron Yes 4mg Take [address] (ZOFRAN) 4 3-03 by mouth 3 Papi es MG tablet 09:46: (three) Medic al 16 times Center daily as needed for Nausea. sucralfate Yes 1g Q.25D Take [address] [facility] (CARAFATE) 3-03 by mouth 4 Papi es 100 mg/mL 09:46: (four) Medica l suspension 16 times Center daily. hydrOXYzine Yes 50mg Take [address] [facility] (ATARAX) 50 3-03 by mouth 3 Vickie kes MG tablet 09:46: (three) Medic al 16 times Center daily as needed for Anxiety. tamsulosin Yes .4mg QD Take 0.[address] [facility] (FLOMAX) 3-03 mg by [facility] 0.4 mg Cp24 09:46: mouth Medic al 24 hr 16 daily. Center capsule aspirin 81 0 Yes 81mg QD Take [address] MG chewable 3-03 by mouth Luke s tablet 09:46: daily. Medical 16 Center folic acid Yes 1mg QD Take [address] [facility] (FOLVITE) 1 3-03 by mouth Luke s MG tablet 09:46: daily. Medica l 16 Center buPROPion 0 Yes 300mg QD Take [address] [facility] (WELLBUTRIN 3-03 mg by [facility] XL) 150 MG 09:46: mouth Medica l 24 hr 16 daily . Center tablet nitroglycer Yes .4mg Place 0.[address] in 3-03 mg under [facility] (NITROSTAT) 09:46: the tongue Medical 0.4 MG [...] n (LIPITOR) 3-03 by mouth Luke s 20 MG 09:46: daily. Medical tablet 16 Center carvediloL Yes 6.25mg Take 6.[address] [facility] (COREG) 3-03 mg by [facility] 12.5 MG 09:46: mouth 2 Medical tablet 16 (two) Center times daily with breakfast and dinner. clindamycin Yes Apply [facility] (CLINDAGEL[facility] 3-03 topically Papi es 1 % gel 09:46: 2 (two) Medical 16 times Center daily as needed. doxycycline Yes 100mg Q.5D Take [address] (DORYX) 100 3-03 mg by [facility] MG EC 09:46: mouth 2 Medical tablet 16 (two) Center times daily. furosemide Yes 20mg Q.[id number] Take [address] [facility] (LASIX) 20 3-03 [id number] by mouth 3 [facility] MG tablet 09:46: 3W (three) Medic al 16 times a Center week MON/WED/FR I. HYDROcodone Yes 1{tbl} Take [address] [facility] -acetaminop 3-03 tablet by Papi es hen (NORCO 09:46: mouth Medica l 7.5-325) 16 every 4 Center 7.5-325 mg (four) per tablet hours as needed for Pain. ondansetron Yes 4mg Take [address] [facility] (ZOFRAN) 4 3-03 by mouth 3 Papi es MG tablet 09:46: (three) Medic al 16 times Center daily as needed for Nausea. sucralfate Yes 1g Q.25D Take [address] [facility] (CARAFATE) 3-03 by mouth 4 Papi es 100 mg/mL 09:46: (four) Medica l suspension 16 times Center daily. hydrOXYzine Yes 50mg Take [address] [facility] (ATARAX) 50 3-03 by mouth 3 Vickie kes MG tablet 09:46: (three) Medic al 16 times Center daily as needed for Anxiety. famotidine 2020- No 20mg Q.5D Take [address] [facility] (PEPCID) 20 3-03 03-03 by mouth 2 L ukes MG tablet 07:57: 00:00 (two) Medica l 17 :00 times Center daily. famotidine 2020- No 20mg Q.5D Take [address] [facility] (PEPCID) 20 3-03 03-03 by mouth 2 L ukes MG tablet 07:57: 00:00 (two) Medica l 17 :00 times Center daily. famotidine 2020- No 20mg Q.5D Take [address] [facility] (PEPCID) 20 3-03 03-03 by mouth 2 L ukes MG tablet 07:57: 00:00 (two) Medica l 17 :00 times Center daily. famotidine 2020- No 20mg Q.5D Take [address] [facility] (PEPCID) 20 3-03 03-03 by mouth 2 L ukes MG tablet 07:57: 00:00 (two) Medica l 17 :00 times Center daily. famotidine 2020- No 20mg Q.5D Take [address] [facility] (PEPCID) 20 3-03 03-03 by mouth 2 L ukes MG tablet 07:57: 00:00 (two) Medica l 17 :00 times Center daily. pantoprazol 2020-0 Yes 40mg Q.5D Take [address] [facility] 3-03 tablet (40 [facility] (PROTONIX) 00:00: mg total) Me dical 40 MG 00 by mouth 2 Center tablet (two) times daily. pantoprazol 2020-0 Yes 40mg Q.5D Take [address] [facility] e 3-03 tablet (40 [facility] (PROTONIX) 00:00: mg total) Me dical 40 MG 00 by mouth 2 Center tablet (two) times daily. pantoprazol 2020-0 Yes 40mg Q.5D Take [address] [facility] e 3-03 tablet (40 [facility] (PROTONIX) 00:00: mg total) Me dical 40 MG 00 by mouth 2 Center tablet (two) times daily. pantoprazol 2020-0 Yes 40mg Q.5D Take [address] [facility] e 3-03 tablet (40 [facility] (PROTONIX) 00:00: mg total) Me dical 40 MG 00 by mouth 2 Center tablet (two) times daily. pantoprazol 2020-0 Yes 40mg Q.5D Take [address] [facility] e 3-03 tablet (40 [facility] (PROTONIX) 00:00: mg total) Me dical 40 MG 00 by mouth 2 Center tablet (two) times daily. pantoprazol 0 2- No 40mg Take 40 mg [facility] 3-03 05-18 by mouth. ity of (PROTONIX) 00:00: 00:00 [place] 40 mg EC 00 :00 MD tablet [facility] omega-3 2020- No Take by [facility] fatty 07-16 mouth. [facility] acids-vitam 17:13: 00:00 Medic al in E 1,000 21 :00 Center mg Cap omega-3 2020- No Take by [facility] fatty 07-16 mouth. [facility] acids-vitam 17:13: 00:00 Medic al in E 1,000 21 :00 Center mg Cap omega-3 2020- No Take by [facility] fatty 07-16 mouth. [facility] acids-vitam 17:13: 00:00 Medic al in E 1,000 21 :00 Center mg Cap omega-3 2020- No Take by [facility] fatty 07-16 mouth. [facility] acids-vitam 17:13: 00:00 Medic al in E 1,000 21 :00 Center mg Cap omega-3 2020- No Take by [facility] fatty 07-16 mouth. [facility] acids-vitam 17:13: 00:00 Medic al in E 1,000 21 :00 Center mg Cap glucosamine 2020-2020- No 1{tbl} Q.[id number] Take [address] [facility] -chondroiti -07-16 [id number] tablet by Antonio day 500-400 17:13: 00:00 3D mouth 3 Medi ashlyn mg tablet 09 :00 (three) Center times daily. glucosamine 2020- No 1{tbl} Q.[id number] Take [address] [facility] -chondroiti 3-01 03- [id number] tablet by [facility] n 500-400 17:13: 00:00 3D mouth 3 Medi [facility]lyn mg tablet 09 :00 (three) Center times daily. glucosamine 2020- No 1{tbl} Q.[id number] Take [address] [facility] -chondroiti 3-05 20- [id number] tablet by [facility] n 500-400 17:13: 00:00 3D mouth 3 Medi [facility] mg tablet 09 :00 (three) Center times daily. glucosamine 2020- No 1{tbl} Q.[id number] Take [address] [facility] -chondroiti 3-05 20- [id number] tablet by [facility] n 500-400 17:13: 00:00 3D mouth 3 Medi ashlyn mg tablet 09 :00 (three) Center times daily. glucosamine 2020- No 1{tbl} Q.[id number] Take [address] [facility] -chondroiti 3-05 20- [id number] tablet by [facility] n 500-400 17:13: 00:00 3D mouth 3 Medi [facility] mg tablet 09 :00 (three) Center times daily. Zoster Vac 2019-05 Yes [id number] One dose Marilynn Recomb 0-19 now. [facility] Adjuvanted 00:00: Second 50 00 dose given MCG/0.5ML two to six intramuscul months ar Recon AFTER Susp first dose. Zoster Vac 2019-05 Yes [id number] One dose Marilynn Recomb 0-19 now. [facility] Adjuvanted 00:00: Second 50 00 dose given MCG/0.5ML two to six intramuscul months ar Recon AFTER Susp first dose. Zoster Vac 2019-05 Yes [id number] One dose Marilynn Recomb 0-19 now. [facility] Adjuvanted 00:00: Second 50 00 dose given MCG/0.5ML two to six intramuscul months ar Recon AFTER Susp first dose. Zoster Vac 2019-05 Yes [id number] One dose Marilynn Recomb 0-19 now. [facility] Adjuvanted 00:00: Second 50 00 dose given MCG/0.5ML two to six intramuscul months ar Recon AFTER Susp first dose. Zoster Vac 2019-05 Yes [id number] One dose Marilynn Recomb 0-19 now. [facility] Adjuvanted 00:00: Second 50 00 dose given MCG/0.5ML two to six intramuscul months ar Recon AFTER Susp first dose. Zoster Vac 2019-05 Yes [id number] One dose Marilynn Recomb 0-19 now. [facility] Adjuvanted 00:00: Second 50 00 dose given MCG/0.5ML two to six intramuscul months ar Recon AFTER Susp first dose. Zoster Vac 2019-05 Yes [id number] One dose Marilynn Recomb 0-19 now. [facility] Adjuvanted 00:00: Second 50 00 dose given MCG/0.5ML two to six intramuscul months ar Recon AFTER Susp first dose. Zoster Vac 2019-05 Yes [id number] One dose Marilynn Recomb 0-19 now. Seybold Adjuvanted 00:00: Second 50 00 dose given MCG/0.5ML two to six intramuscul months ar Recon AFTER Susp first dose. Zoster Vac 2019-05- No [id number] One dose Marilynn Recomb 0-19 12-06 now. [facility] Adjuvanted 00:00: 00:00 Second 50 00 :00 dose given MCG/0.5ML two to six intramuscul months ar Recon AFTER Susp first dose. busPIRone 2019-05 Yes [id number] Sheree ey HCl 15 MG 0-15 [facility] oral Tab 00:00: 00 busPIRone 2019-05- No [id number] Renate sey HCl 15 MG 0-15 10-05 [facility] oral Tab 00:00: 00:00 00 :00 Atorvastati 2018-05 Yes [id number] 20mg Take 1 Marilynn n Calcium 0-17 tablet (20 Seyb old 20 MG oral 00:00: mg total) Tab 00 by mouth daily Atorvastati 2018-05 Yes [id number] 20mg Take 1 Marilynn n Calcium 0-17 tablet (20 Seyb old 20 MG oral 00:00: mg total) Tab 00 by mouth daily Atorvastati 2018-05 Yes [id number] 20mg Take 1 Marilynn n Calcium 0-17 tablet (20 Seyb old 20 MG oral 00:00: mg total) - Tab 00 by mouth Externa daily l Atorvastati 2018-05 Yes [id number] 20mg Take 1 Marilynn n Calcium 0-17 tablet (20 Seyb old 20 MG oral 00:00: mg total) - Tab 00 by mouth Externa daily Atorvasta2018-05 Yes [id number] 20mg Take 1 Marilynn n Calcium 0-17 tablet (20 Seyb old 20 MG oral 00:00: mg total) - Tab 00 by mouth Externa daily Atorvasta2018-05 Yes [id number] 20mg Take 1 Marilynn n Calcium 0-17 tablet (20 Seyb old 20 MG oral 00:00: mg total) Tab 00 by mouth daily Atorvasta2018-05 Yes [id number] 20mg Take 1 Marilynn n Calcium 0-17 tablet (20 Seyb old 20 MG oral 00:00: mg total) - Tab 00 by mouth Externa daily Atorvas2018-05 Yes [id number] 20mg Take 1 Marilynn n Calcium 0-17 tablet (20 Seyb old 20 MG oral 00:00: mg total) - Tab 00 by mouth Externa daily Atorvas2018-05 Yes [id number] 20mg Take 1 Marilynn n Calcium 0-17 tablet (20 Seyb old 20 MG oral 00:00: mg total) - Tab 00 by mouth Externa daily Atorvasta2018-05 Yes [id number] 20mg Take 1 Marilynn n Calcium 0-17 tablet (20 Seyb old 20 MG oral 00:00: mg total) - Tab 00 by mouth Externa daily Atorvas2018-05 Yes [id number] 20mg Take 1 Marilynn n Calcium 0-17 tablet (20 Seyb old 20 MG oral 00:00: mg total) - Tab 00 by mouth Externa daily Atorvas2018-05 Yes [id number] 20mg Take 1 Marilynn n Calcium 0-17 tablet (20 Seyb old 20 MG oral 00:00: mg total) - Tab 00 by mouth Externa daily Atorvasta2018-05 Yes [id number] 20mg Take 1 Marilynn n Calcium 0-17 tablet (20 Seyb old 20 MG oral 00:00: mg total) - Tab 00 by mouth Externa daily Atorvasta2018-05 Yes [id number] 20mg Take 1 Marilynn n Calcium 0-17 tablet (20 Seyb old 20 MG oral 00:00: mg total) Tab 00 by mouth daily Atorvastati 2018-05 Yes [id number] 20mg Take 1 Marilynn n Calcium 0-17 tablet (20 Seyb old 20 MG oral 00:00: mg total) - Tab 00 by mouth Externa daily l Atorvasta2018-05 Yes [id number] 20mg Take 1 Marilynn n Calcium 0-17 tablet (20 Seyb old 20 MG oral 00:00: mg total) - Tab 00 by mouth Externa daily l Atorvastati 2018-05 Yes [id number] 20mg Take 1 Marilynn n Calcium 0-17 tablet (20 Seyb old 20 MG oral 00:00: mg total) - Tab 00 by mouth Externa daily l Atorvastati 2018-05 Yes [id number] 20mg Take 1 Marilynn n Calcium 0-17 tablet (20 Seyb old 20 MG oral 00:00: mg total) Tab 00 by mouth daily Atorvastati 2018-05 Yes [id number] 20mg Take 1 Marilynn n Calcium 0-17 tablet (20 Seyb old 20 MG oral 00:00: mg total) Tab 00 by mouth daily Atorvastati 2018-05 Yes [id number] 20mg Take 1 Marilynn n Calcium 0-17 tablet (20 Seyb old 20 MG oral 00:00: mg total) Tab 00 by mouth daily Atorvastati 2018-05 Yes [id number] 20mg Take 1 Marilynn n Calcium 0-17 tablet (20 Seyb old 20 MG oral 00:00: mg total) Tab 00 by mouth daily Atorvastati 2018-05 Yes [id number] 20mg Take 1 Marilynn n Calcium 0-17 tablet (20 Seyb old 20 MG oral 00:00: mg total) Tab 00 by mouth daily Atorvastati 2018-05 Yes [id number] 20mg Take 1 Marilynn n Calcium 0-17 tablet (20 Seyb old 20 MG oral 00:00: mg total) Tab 00 by mouth daily Atorvastati 2018-05 Yes [id number] 20mg Take 1 Marilynn n Calcium 0-17 tablet (20 Seyb old 20 MG oral 00:00: mg total) Tab 00 by mouth daily Atorvastati 2018-05 Yes [id number] 20mg Take 1 Marilynn n Calcium 0-17 tablet (20 Seyb old 20 MG oral 00:00: mg total) Tab 00 by mouth daily Atorvastati 2018-05 Yes [id number] 20mg Take 1 Marilynn n Calcium 0-17 tablet (20 Seyb old 20 MG oral 00:00: mg total) Tab 00 by mouth daily Atorvastati 2018-05 Yes [id number] 20mg Take 1 Marilynn n Calcium 0-17 tablet (20 Seyb old 20 MG oral 00:00: mg total) Tab 00 by mouth daily Atorvastati 2018-05 Yes [id number] 20mg Take 1 Marilynn n Calcium 0-17 tablet (20 Seyb old 20 MG oral 00:00: mg total) Tab 00 by mouth daily Atorvastati 2018-05 Yes [id number] 20mg Take 1 Marilynn n Calcium 0-17 tablet (20 Seyb old 20 MG oral 00:00: mg total) Tab 00 by mouth daily Atorvastati 2018-05 Yes [id number] 20mg Take 1 Marilynn n Calcium 0-17 tablet (20 Seyb old 20 MG oral 00:00: mg total) Tab 00 by mouth daily Atorvastati 2018-05 Yes [id number] 20mg Take 1 Marilynn n Calcium 0-17 tablet (20 Seyb old 20 MG oral 00:00: mg total) Tab 00 by mouth daily Atorvastati 2018-05 Yes [id number] 20mg Take 1 Marilynn n Calcium 0-17 tablet (20 Seyb old 20 MG oral 00:00: mg total) Tab 00 by mouth daily Atorvastati 2018-05 Yes [id number] 20mg Take 1 Marilynn n Calcium 0-17 tablet (20 Seyb old 20 MG oral 00:00: mg total) Tab 00 by mouth daily Atorvastati 2018-05 Yes [id number] 20mg Take 1 Marilynn n Calcium 0-17 tablet (20 Seyb old 20 MG oral 00:00: mg total) Tab 00 by mouth daily Atorvastati 2018-05 Yes [id number] 20mg Take 1 Marilynn n Calcium 0-17 tablet (20 Seyb old 20 MG oral 00:00: mg total) Tab 00 by mouth daily Atorvastati 2018-05 Yes [id number] 20mg Take 1 Marilynn n Calcium 0-17 tablet (20 Seyb old 20 MG oral 00:00: mg total) Tab 00 by mouth daily atorvastati 2018-05 Yes 20mg Take 20 mg [facility] (LIPITOR) 0-17 by mouth ity of 20 mg 00:00: at [place] tablet 00 bedtime. MD [facility] Aspirin 81 2017-05 Yes [id number] 81mg Take 1 Ke lsey MG oral 0-16 (one) Seybold Chew Tab 00:00: tablet by 00 mouth daily Folic Acid 2017-05 Yes [id number] 1mg Take 1 Marilynn 1 MG oral 0-16 (one) Seybold tablet 00:00: tablet by 00 mouth daily Aspirin 81 2017-05 Yes [id number] 81mg Take 1 Ke [facility]sey MG oral 0-16 (one) [facility]bold Chew Tab 00:00: tablet by 00 mouth daily Folic Acid 2017-05 Yes [id number] 1mg Take 1 Marilynn 1 MG oral 0-16 (one) Seybold tablet 00:00: tablet by 00 mouth daily Aspirin 81 2017-05 Yes [id number] 81mg Take 1 Ke [facility] MG oral 0-16 (one) [facility]bold Chew Tab 00:00: tablet by - 00 mouth Externa daily l Folic Acid 2017-05 Yes [id number] 1mg Take 1 Marilynn 1 MG oral 0-16 (one) Seybold tablet 00:00: tablet by - 00 mouth Externa daily l Aspirin 81 2017-05 Yes [id number] 81mg Take 1 Ke [facility]sey MG oral 0-16 (one) [facility]bold Chew Tab 00:00: tablet by - 00 mouth Externa daily l Folic Acid 2017-05 Yes [id number] 1mg Take 1 Marilynn 1 MG oral 0-16 (one) Seybold tablet 00:00: tablet by - 00 mouth Externa daily l Aspirin 81 2017-05 Yes [id number] 81mg Take 1 Ke [facility]sey MG oral 0-16 (one) [facility]bold Chew Tab 00:00: tablet by - 00 mouth Externa daily l Folic Acid 2017-05 Yes [id number] 1mg Take 1 Marilynn 1 MG oral 0-16 (one) Seybold tablet 00:00: tablet by - 00 mouth Externa daily l Aspirin 81 2017-05 Yes [id number] 81mg Take 1 Ke lsey MG oral 0-16 (one) Seybold Chew Tab 00:00: tablet by 00 mouth daily Folic Acid 2017-05 Yes [id number] 1mg Take 1 Marilynn 1 MG oral 0-16 (one) Seybold tablet 00:00: tablet by 00 mouth daily Aspirin 81 2017-05 Yes [id number] 81mg Take 1 Ke lsey MG oral 0-16 (one) Seybold Chew Tab 00:00: tablet by - 00 mouth Externa daily l Folic Acid 2017-05 Yes [id number] 1mg Take 1 Marilynn 1 MG oral 0-16 (one) Seybold tablet 00:00: tablet by - 00 mouth Externa daily l Aspirin 81 2017-05 Yes [id number] 81mg Take 1 Ke [facility]sey MG oral 0-16 (one) Seybold Chew Tab 00:00: tablet by - 00 mouth Externa daily l Folic Acid 2017-05 Yes [id number] 1mg Take 1 Marilynn 1 MG oral 0-16 (one) Seybold tablet 00:00: tablet by - 00 mouth Externa daily l Aspirin 81 2017-05 Yes [id number] 81mg Take 1 Ke lsey MG oral 0-16 (one) Seybold Chew Tab 00:00: tablet by - 00 mouth Externa daily l Folic Acid 2017-05 Yes [id number] 1mg Take 1 Marilynn 1 MG oral 0-16 (one) Seybold tablet 00:00: tablet by - 00 mouth Externa daily l Aspirin 81 2017-05 Yes [id number] 81mg Take 1 Ke [facility]sey MG oral 0-16 (one) Seybold Chew Tab 00:00: tablet by - 00 mouth Externa daily l Folic Acid 2017-05 Yes [id number] 1mg Take 1 Marilynn 1 MG oral 0-16 (one) Seybold tablet 00:00: tablet by - 00 mouth Externa daily l Aspirin 81 2017-05 Yes [id number] 81mg Take 1 Ke [facility] MG oral 0-16 (one) Seybold Chew Tab 00:00: tablet by - 00 mouth Externa daily l Folic Acid 2017-05 Yes [id number] 1mg Take 1 Marilynn 1 MG oral 0-16 (one) Seybold tablet 00:00: tablet by - 00 mouth Externa daily l Aspirin 81 2017-05 Yes [id number] 81mg Take 1 Ke [facility]sey MG oral 0-16 (one) Seybold Chew Tab 00:00: tablet by - 00 mouth Externa daily l Folic Acid 2017-05 Yes [id number] 1mg Take 1 Marilynn 1 MG oral 0-16 (one) Seybold tablet 00:00: tablet by - 00 mouth Externa daily l Aspirin 81 2017-05 Yes [id number] 81mg Take 1 Ke lsey MG oral 0-16 (one) Seybold Chew Tab 00:00: tablet by 00 mouth daily Aspirin 81 2017-05 Yes [id number] 81mg Take 1 Ke [facility] MG oral 0-16 (one) Seybold Chew Tab 00:00: tablet by - 00 mouth Externa daily l Folic Acid 2017-05 Yes [id number] 1mg Take 1 Marilynn 1 MG oral 0-16 (one) Seybold tablet 00:00: tablet by - 00 mouth Externa daily l Folic Acid 2017-05 Yes [id number] 1mg Take 1 Marilynn 1 MG oral 0-16 (one) Seybold tablet 00:00: tablet by 00 mouth daily Aspirin 81 2017-05 Yes [id number] 81mg Take 1 Ke [facility]sey MG oral 0-16 (one) [facility]bold Chew Tab 00:00: tablet by - 00 mouth Externa daily l Folic Acid 2017-05 Yes [id number] 1mg Take 1 Marilynn 1 MG oral 0-16 (one) Seybold tablet 00:00: tablet by - 00 mouth Externa daily l Aspirin 81 2017-05 Yes [id number] 81mg Take 1 Ke [facility] MG oral 0-16 (one) Seybold Chew Tab 00:00: tablet by - 00 mouth Externa daily l Folic Acid 2017-05 Yes [id number] 1mg Take 1 Marilynn 1 MG oral 0-16 (one) Seybold tablet 00:00: tablet by - 00 mouth Externa daily l Aspirin 81 2017-05 Yes [id number] 81mg Take 1 Ke [facility] MG oral 0-16 (one) Seybold Chew Tab 00:00: tablet by - 00 mouth Externa daily l Folic Acid 2017-05 Yes [id number] 1mg Take 1 Marilynn 1 MG oral 0-16 (one) Seybold tablet 00:00: tablet by - 00 mouth Externa daily l Aspirin 81 2017-05 Yes [id number] 81mg Take 1 Ke [facility] MG oral 0-16 (one) Seybold Chew Tab 00:00: tablet by - 00 mouth Externa daily l Aspirin 81 2017-05 Yes [id number] 81mg Take 1 Ke [facility] MG oral 0-16 (one) Seybold Chew Tab 00:00: tablet by 00 mouth daily Folic Acid 2017-05 Yes [id number] 1mg Take 1 Marilynn 1 MG oral 0-16 (one) Seybold tablet 00:00: tablet by 00 mouth daily Aspirin 81 2017-05 Yes [id number] 81mg Take 1 [facility] MG oral 0-16 (one) Seybold Chew Tab 00:00: tablet by 00 mouth daily Folic Acid 2017-05 Yes [id number] 1mg Take 1 Marilynn 1 MG oral 0-16 (one) Seybold tablet 00:00: tablet by 00 mouth daily Aspirin 81 2017-05 Yes [id number] 81mg Take 1 [facility] MG oral 0-16 (one) Seybold Chew Tab 00:00: tablet by 00 mouth daily Folic Acid 2017-05 Yes [id number] 1mg Take 1 Marilynn 1 MG oral 0-16 (one) Seybold tablet 00:00: tablet by 00 mouth daily Aspirin 81 2017-05 Yes [id number] 81mg Take 1 Ke [facility] MG oral 0-16 (one) Seybold Chew Tab 00:00: tablet by 00 mouth daily Folic Acid 2017-05 Yes [id number] 1mg Take 1 Marilynn 1 MG oral 0-16 (one) Seybold tablet 00:00: tablet by 00 mouth daily Aspirin 81 2017-05 Yes [id number] 81mg Take 1 [facility] MG oral 0-16 (one) Seybold Chew Tab 00:00: tablet by 00 mouth daily Folic Acid 2017-05 Yes [id number] 1mg Take 1 Marilynn 1 MG oral 0-16 (one) Seybold tablet 00:00: tablet by 00 mouth daily Aspirin 81 2017-05 Yes [id number] 81mg Take 1 Ke [facility] MG oral 0-16 (one) Seybold Chew Tab 00:00: tablet by 00 mouth daily Folic Acid 2017-05 Yes [id number] 1mg Take 1 Marilynn 1 MG oral 0-16 (one) Seybold tablet 00:00: tablet by 00 mouth daily Aspirin 81 2017-05 Yes [id number] 81mg Take 1 [facility] MG oral 0-16 (one) Seybold Chew Tab 00:00: tablet by 00 mouth daily Folic Acid 2017-05 Yes [id number] 1mg Take 1 Marilynn 1 MG oral 0-16 (one) Seybold tablet 00:00: tablet by 00 mouth daily Aspirin 81 2017-05 Yes [id number] 81mg Take 1 Ke [facility] MG oral 0-16 (one) Seybold Chew Tab 00:00: tablet by 00 mouth daily Folic Acid 2017-05 Yes [id number] 1mg Take 1 Marilynn 1 MG oral 0-16 (one) Seybold tablet 00:00: tablet by 00 mouth daily Aspirin 81 2017-05 Yes [id number] 81mg Take 1 Ke [facility]sey MG oral 0-16 (one) Seybold Chew Tab 00:00: tablet by 00 mouth daily Folic Acid 2017-05 Yes [id number] 1mg Take 1 Marilynn 1 MG oral 0-16 (one) Seybold tablet 00:00: tablet by 00 mouth daily Aspirin 81 2017-05 Yes [id number] 81mg Take 1 Ke [facility]sey MG oral 0-16 (one) Seybold Chew Tab 00:00: tablet by 00 mouth daily Folic Acid 2017-05 Yes [id number] 1mg Take 1 Marilynn 1 MG oral 0-16 (one) Seybold tablet 00:00: tablet by 00 mouth daily Aspirin 81 2017-05 Yes [id number] 81mg Take 1 Ke [facility]sey MG oral 0-16 (one) Seybold Chew Tab 00:00: tablet by 00 mouth daily Folic Acid 2017-05 Yes [id number] 1mg Take 1 Marilynn 1 MG oral 0-16 (one) Seybold tablet 00:00: tablet by 00 mouth daily Aspirin 81 2017-05 Yes [id number] 81mg Take 1 Ke [facility] MG oral 0-16 (one) Seybold Chew Tab 00:00: tablet by 00 mouth daily Folic Acid 2017-05 Yes [id number] 1mg Take 1 Marilynn 1 MG oral 0-16 (one) Seybold tablet 00:00: tablet by 00 mouth daily Aspirin 81 2017-05 Yes [id number] 81mg Take 1 Ke [facility]sey MG oral 0-16 (one) Seybold Chew Tab 00:00: tablet by 00 mouth daily Folic Acid 2017-05 Yes [id number] 1mg Take 1 Marilynn 1 MG oral 0-16 (one) Seybold tablet 00:00: tablet by 00 mouth daily Aspirin 81 2017-05 Yes [id number] 81mg Take 1 Ke [facility]sey MG oral 0-16 (one) Seybold Chew Tab 00:00: tablet by 00 mouth daily Folic Acid 2017-05 Yes [id number] 1mg Take 1 Marilynn 1 MG oral 0-16 (one) Seybold tablet 00:00: tablet by 00 mouth daily Aspirin 81 2017-05 Yes [id number] 81mg Take 1 Ke [facility]sey MG oral 0-16 (one) Seybold Chew Tab 00:00: tablet by 00 mouth daily Folic Acid 2017-05 Yes [id number] 1mg Take 1 Marilynn 1 MG oral 0-16 (one) Seybold tablet 00:00: tablet by 00 mouth daily Aspirin 81 2017-05 Yes [id number] 81mg Take 1 Ke [facility]sey MG oral 0-16 (one) Seybold Chew Tab 00:00: tablet by 00 mouth daily Folic Acid 2017-05 Yes [id number] 1mg Take 1 Marilynn 1 MG oral 0-16 (one) Seybold tablet 00:00: tablet by 00 mouth daily Aspirin 81 2017-05 Yes [id number] 81mg Take 1 Ke [facility]sey MG oral 0-16 (one) Seybold Chew Tab 00:00: tablet by 00 mouth daily Folic Acid 2017-05 Yes [id number] 1mg Take 1 Marilynn 1 MG oral 0-16 (one) Seybold tablet 00:00: tablet by 00 mouth daily Aspirin 81 2017-05 Yes [id number] 81mg Take 1 Ke [facility]sey MG oral 0-16 (one) Seybold Chew Tab 00:00: tablet by 00 mouth daily Folic Acid 2017-05 Yes [id number] 1mg Take 1 Marilynn 1 MG oral 0-16 (one) Seybold tablet 00:00: tablet by 00 mouth daily Aspirin 81 2017-05 Yes [id number] 81mg Take 1 Ke [facility]sey MG oral 0-16 (one) Seybold Chew Tab 00:00: tablet by 00 mouth daily Folic Acid 2017-05 Yes [id number] 1mg Take 1 Marilynn 1 MG oral 0-16 (one) Seybold tablet 00:00: tablet by 00 mouth daily folic acid 2017-05 Yes 1mg Take 1 mg [place] (FOLVITE) 1 0-16 by mouth ity of mg tablet 00:00: daily. [place] 00 MD [facility] ticagrelor 2016-2020- No 90mg Q.5D Take [address] [facility] ([place]) 4-24 - tablet (90 Vickie kes 90 mg Tab 00:00: 00:00 mg total) Me dical tablet 00 :00 by mouth 2 Center (two) times daily. ticagrelor 2020- No 90mg Q.5D Take [address] [facility] ([place]) 09-08 tablet (90 Vickie kes 90 mg Tab 00:00: 00:00 mg total) Me dical tablet 00 :00 by mouth 2 Center (two) times daily. ticagrelor 2020- No 90mg Q.5D Take [address] [facility] ([place]) 09-08 tablet (90 Vickie kes 90 mg Tab 00:00: 00:00 mg total) Me dical tablet 00 :00 by mouth 2 Center (two) times daily. ticagrelor 2020- No 90mg Q.5D Take [address] [facility] ([place]) 09-08 tablet (90 Vickie kes 90 mg Tab 00:00: 00:00 mg total) Me dical tablet 00 :00 by mouth 2 Center (two) times daily. ticagrelor 2020- No 90mg Q.5D Take [address] [facility] ([place]) 09-08 tablet (90 Vickie kes 90 mg Tab 00:00: 00:00 mg total) Me dical tablet 00 :00 by mouth 2 Center (two) times daily. Immunizations Ordered Immunization Filled Immunization Date Status Commen ts Source Name Name Influenza Virus 2022-02-11 Completed Marilynn Coyne [facility] - Vaccine, 00:00:00 External Quadrivalent, High Dose, Age 65 And Up Influenza Virus 2022-02-11 Completed Marilynn Coyne [facility]bold - Vaccine, 00:00:00 External Quadrivalent, High Dose, Age 65 And Up Influenza Virus 2022-02-11 Completed Marilynn Coyne [facility]bold - Vaccine, 00:00:00 External Quadrivalent, High Dose, Age 65 And Up Influenza Virus 2022-02-11 Completed Marilynn Coyne ybold - Vaccine, 00:00:00 External Quadrivalent, High Dose, Age 65 And Up Influenza Virus 2022-02-11 Completed Marilynn Coyne ybold - Vaccine, 00:00:00 External Quadrivalent, High Dose, Age 65 And Up Influenza Virus 2022-02-11 Completed Mariylnn balderramaold - Vaccine, 00:00:00 External Quadrivalent, High Dose, Age 65 And Up Influenza Virus 2022-02-11 Completed Marilynn Se ybold - Vaccine, 00:00:00 External Quadrivalent, High Dose, Age 65 And Up Influenza Virus 2022-02-11 Completed Marilynn Se ybold - Vaccine, 00:00:00 External Quadrivalent, High Dose, Age 65 And Up Influenza Virus 2022-02-11 Completed Marilynn Se ybold - Vaccine, 00:00:00 External Quadrivalent, High Dose, Age 65 And Up Influenza Virus 2022-02-11 Completed Marilynn Se ybold - Vaccine, 00:00:00 External Quadrivalent, High Dose, Age 65 And Up Influenza Virus 2022-02-11 Completed Marilynn Coyne ybold - Vaccine, 00:00:00 External Quadrivalent, High Dose, Age 65 And Up Influenza Virus 2022-02-11 Completed Marilynn Se ybold - Vaccine, 00:00:00 External Quadrivalent, High Dose, Age 65 And Up Influenza, 2022-02-11 Completed [facility] Quadrivalent 00:00:00 [place] [facility] [place] Covid-19 Vaccine 2021-10-15 Completed Marilynn Liu eybold - Moderna (Spikevax), 00:00:00 Exter nal Mrna-lnp, Germain Protein, Pf Covid-19 Vaccine 2021-10-15 Completed Marilynn Liu eybold - Moderna (Spikevax), 00:00:00 Exter nal Mrna-lnp, Germain Protein, Pf Covid-19 Vaccine 2021-10-15 Completed Marilynn Liu eybogareth - Moderna (Spikevax), 00:00:00 Exter nal Mrna-lnp, Germain Protein, Pf Covid-19 Vaccine 2021-10-15 Completed Marilynn Liu eybold - Moderna (Spikevax), 00:00:00 Exter nal Mrna-lnp, Germain Protein, Pf Covid-19 Vaccine 2021-10-15 Completed Marilynn Liu eybogareth - Moderna (Spikevax), 00:00:00 Exter nal Mrna-lnp, Germain Protein, Pf Covid-19 Vaccine 2021-10-15 Completed Marilynn Liu eybold - Moderna (Spikevax), 00:00:00 Exter nal Mrna-lnp, Germain Protein, Pf Covid-19 Vaccine 2021-10-15 Completed Marilynn Liu eybold - Moderna (Spikevax), 00:00:00 Exter nal Mrna-lnp, Germain Protein, Pf Covid-19 Vaccine 2021-10-15 Completed Marilynn Liu eybold - Moderna (Spikevax), 00:00:00 Exter nal Mrna-lnp, Germain Protein, Pf Covid-19 Vaccine 2021-10-15 Completed Marilynn Liu eybold - Moderna (Spikevax), 00:00:00 Exter nal Mrna-lnp, Germain Protein, Pf Covid-19 Vaccine 2021-10-15 Completed Marilynn Liu eybold - Moderna (Spikevax), 00:00:00 Exter nal Mrna-lnp, Germain Protein, Pf Covid-19 Vaccine 2021-10-15 Completed Marilynn Liu eybold - Moderna (Spikevax), 00:00:00 Exter nal Mrna-lnp, Germain Protein, Pf Covid-19 Vaccine 2021-10-15 Completed Marilynn Liu eybogareth - Moderna (Spikevax), 00:00:00 Exter nal Mrna-lnp, Germain Protein, Pf Covid-19 Vaccine 2021-10-15 Completed Marilynn Liu eybogareth - Moderna (Spikevax), 00:00:00 Exter nal Mrna-lnp, Germain Protein, Pf Covid-19 Vaccine 2021-10-15 Completed Marilynn Liu eybogareth - Moderna (Spikevax), 00:00:00 Exter nal Mrna-lnp, Germain Protein, Pf Moderna SARS-CoV-2 2021-10-15 Completed [facility] Monovalent Booster 00:00:00 Vero JARA Vaccination (50 Kamar Cancer mcg/0.25 mL) [facility] Influenza Virus 2021-02-04 Completed Marilynn Coyne ybold Vaccine, 00:00:00 Quadrivalent, High Dose, Age 65 And Up Influenza Virus 2021-02-04 Completed Marilynn Coyne ybold Vaccine, 00:00:00 Quadrivalent, High Dose, Age 65 And Up Influenza Virus 2021-02-04 Completed Marilynn Coyne ybold Vaccine, 00:00:00 Quadrivalent, High Dose, Age 65 And Up Influenza Virus 2021-02-04 Completed Marilynn balderramaold - Vaccine, 00:00:00 External Quadrivalent, High Dose, Age 65 And Up Influenza Virus 2021-02-04 Completed Marilynn Se ybold Vaccine, 00:00:00 Quadrivalent, High Dose, Age 65 And Up Influenza Virus 2021-02-04 Completed Marilynn Se ybold - Vaccine, 00:00:00 External Quadrivalent, High Dose, Age 65 And Up Influenza Virus 2021-02-04 Completed Marilynn Se ybold - Vaccine, 00:00:00 External Quadrivalent, High Dose, Age 65 And Up Influenza Virus 2021-02-04 Completed Marilynn Se ybold - Vaccine, 00:00:00 External Quadrivalent, High Dose, Age 65 And Up Influenza Virus 2021-02-04 Completed Marilynn Se ybold - Vaccine, 00:00:00 External Quadrivalent, High Dose, Age 65 And Up Influenza Virus 2021-02-04 Completed Marilynn Se ybold - Vaccine, 00:00:00 External Quadrivalent, High Dose, Age 65 And Up Influenza Virus 2021-02-04 Completed Marilynn Se ybold - Vaccine, 00:00:00 External Quadrivalent, High Dose, Age 65 And Up Influenza Virus 2021-02-04 Completed Marilynn Se ybold Vaccine, 00:00:00 Quadrivalent, High Dose, Age 65 And Up Influenza Virus 2021-02-04 Completed Marilynn Se ybold - Vaccine, 00:00:00 External Quadrivalent, High Dose, Age 65 And Up Influenza Virus 2021-02-04 Completed Marilynn Se ybold - Vaccine, 00:00:00 External Quadrivalent, High Dose, Age 65 And Up Influenza Virus 2021-02-04 Completed Marilynn Se ybold - Vaccine, 00:00:00 External Quadrivalent, High Dose, Age 65 And Up Influenza Virus 2021-02-04 Completed Marilynn Se ybold - Vaccine, 00:00:00 External Quadrivalent, High Dose, Age 65 And Up Influenza Virus 2021-02-04 Completed Marilynn Se ybold - Vaccine, 00:00:00 External Quadrivalent, High Dose, Age 65 And Up Influenza Virus 2021-02-04 Completed Marilynn Se ybold - Vaccine, 00:00:00 External Quadrivalent, High Dose, Age 65 And Up Influenza Virus 2021-02-04 Completed Marilynn Se ybold Vaccine, 00:00:00 Quadrivalent, High Dose, Age 65 And Up Influenza Virus 2021-02-04 Completed Marilynn Se ybold - Vaccine, 00:00:00 External Quadrivalent, High Dose, Age 65 And Up Influenza Virus 2021-02-04 Completed Marilynn Se ybold Vaccine, 00:00:00 Quadrivalent, High Dose, Age 65 And Up Influenza Virus 2021-02-04 Completed Marilynn Se ybold Vaccine, 00:00:00 Quadrivalent, High Dose, Age 65 And Up Influenza Virus 2021-02-04 Completed Marilynn Se ybold Vaccine, 00:00:00 Quadrivalent, High Dose, Age 65 And Up Influenza Virus 2021-02-04 Completed Marilynn Se ybold Vaccine, 00:00:00 Quadrivalent, High Dose, Age 65 And Up Influenza Virus 2021-02-04 Completed Marilynn Se ybold Vaccine, 00:00:00 Quadrivalent, High Dose, Age 65 And Up Influenza Virus 2021-02-04 Completed Marilynn Se ybold Vaccine, 00:00:00 Quadrivalent, High Dose, Age 65 And Up Influenza Virus 2021-02-04 Completed Marilynn Se ybold Vaccine, 00:00:00 Quadrivalent, High Dose, Age 65 And Up Influenza Virus 2021-02-04 Completed Marilynn Se ybold Vaccine, 00:00:00 Quadrivalent, High Dose, Age 65 And Up Influenza Virus 2021-02-04 Completed Marilynn Se ybold Vaccine, 00:00:00 Quadrivalent, High Dose, Age 65 And Up Influenza Virus 2021-02-04 Completed Marilynn Se ybold Vaccine, 00:00:00 Quadrivalent, High Dose, Age 65 And Up Influenza Virus 2021-02-04 Completed Marilynn Se ybold Vaccine, 00:00:00 Quadrivalent, High Dose, Age 65 And Up Influenza Virus 2021-02-04 Completed Marilynn Se ybold Vaccine, 00:00:00 Quadrivalent, High Dose, Age 65 And Up Influenza Virus 2021-02-04 Completed Marilynn Se ybold Vaccine, 00:00:00 Quadrivalent, High Dose, Age 65 And Up Influenza Virus 2021-02-04 Completed Marilynn Se ybold Vaccine, 00:00:00 Quadrivalent, High Dose, Age 65 And Up Influenza Virus 2021-02-04 Completed Marilynn Se ybold Vaccine, 00:00:00 Quadrivalent, High Dose, Age 65 And Up Influenza Virus 2021-02-04 Completed Marilynn Se ybold Vaccine, 00:00:00 Quadrivalent, High Dose, Age 65 And Up Influenza Virus 2021-02-04 Completed Marilynn Se ybold Vaccine, 00:00:00 Quadrivalent, High Dose, Age 65 And Up Influenza, 2021-02-04 Completed [facility] Quadrivalent 00:00:00 [facility] Influenza (IM) 2021-02-04 Completed [facility] Preservative Free 00:00:00 [facility] Covid-19 Vaccine 2021-01-25 Completed Marilynn S eybold (Pfizer), Mrna-lnp, 00:00:00 Germain Protein, Pf, 30mcg/0.3ml,IM Covid-19 Vaccine 2021-01-25 Completed Marilynn S eybold (Pfizer), Mrna-lnp, 00:00:00 Germain Protein, Pf, 30mcg/0.3ml,IM Covid-19 Vaccine 2021-01-25 Completed Marilynn S eybold (Pfizer), Mrna-lnp, 00:00:00 Germain Protein, Pf, 30mcg/0.3ml,IM Covid-19 Vaccine 2021-01-25 Completed Marilynn S eybold (Pfizer), Mrna-lnp, 00:00:00 Germain Protein, Pf, 30mcg/0.3ml,IM Covid-19 Vaccine 2021-01-25 Completed Marilynn S eybold - (Pfizer), Mrna-lnp, 00:00:00 Exter nal Germain Protein, Pf, 30mcg/0.3ml,IM Covid-19 Vaccine 2021-01-25 Completed Marilynn S eybold - (Pfizer), Mrna-lnp, 00:00:00 Exter nal Germain Protein, Pf, 30mcg/0.3ml,IM Covid-19 Vaccine 2021-01-25 Completed Marilynn S eybold - (Pfizer), Mrna-lnp, 00:00:00 Exter nal Germain Protein, Pf, 30mcg/0.3ml,IM Covid-19 Vaccine 2021-01-25 Completed Marilynn S eybold - (Pfizer), Mrna-lnp, 00:00:00 Exter nal Germain Protein, Pf, 30mcg/0.3ml,IM Covid-19 Vaccine 2021-01-25 Completed Marilynn S eybold - (Pfizer), Mrna-lnp, 00:00:00 Exter nal Germain Protein, Pf, 30mcg/0.3ml,IM Covid-19 Vaccine 2021-01-25 Completed Marilynn S eybold - ([facility]), Mrna-lnp, 00:00:00 Exter nal Germain Protein, Pf, 30mcg/0.3ml,IM Covid-19 Vaccine 2021-01-25 Completed Marilynn S eybold - ([facility]), Mrna-lnp, 00:00:00 Exter nal Germain Protein, Pf, 30mcg/0.3ml,IM Covid-19 Vaccine 2021-01-25 Completed Marilynn S eybold ([facility]), Mrna-lnp, 00:00:00 Germain Protein, Pf, 30mcg/0.3ml,IM Covid-19 Vaccine 2021-01-25 Completed Marilynn S eybold - ([facility]), Mrna-lnp, 00:00:00 Exter nal Germain Protein, Pf, 30mcg/0.3ml,IM Covid-19 Vaccine 2021-01-25 Completed Marilynn S eybold - ([facility]), Mrna-lnp, 00:00:00 Exter nal Germain Protein, Pf, 30mcg/0.3ml,IM Covid-19 Vaccine 2021-01-25 Completed Marilynn S eybold - ([facility]), Mrna-lnp, 00:00:00 Exter nal Germain Protein, Pf, 30mcg/0.3ml,IM Covid-19 Vaccine 2021-01-25 Completed Marilynn S eybold - ([facility]), Mrna-lnp, 00:00:00 Exter nal Germain Protein, Pf, 30mcg/0.3ml,IM Covid-19 Vaccine 2021-01-25 Completed Marilynn S eybold - ([facility]), Mrna-lnp, 00:00:00 Exter nal Germain Protein, Pf, 30mcg/0.3ml,IM Covid-19 Vaccine 2021-01-25 Completed Marilynn S eybold - ([facility]), Mrna-lnp, 00:00:00 Exter nal Germain Protein, Pf, 30mcg/0.3ml,IM Covid-19 Vaccine 2021-01-25 Completed Marilynn S eybold ([facility]), Mrna-lnp, 00:00:00 Germain Protein, Pf, 30mcg/0.3ml,IM Covid-19 Vaccine 2021-01-25 Completed Marilynn S eybold - ([facility]), Mrna-lnp, 00:00:00 Exter nal Germain Protein, Pf, 30mcg/0.3ml,IM Covid-19 Vaccine 2021-01-25 Completed Marilynn S eybold ([facility]), Mrna-lnp, 00:00:00 Germain Protein, Pf, 30mcg/0.3ml,IM Covid-19 Vaccine 2021-01-25 Completed Marilynn S eybold ([facility]), Mrna-lnp, 00:00:00 Germain Protein, Pf, 30mcg/0.3ml,IM Covid-19 Vaccine 2021-01-25 Completed Marilynn S eybold ([facility]), Mrna-lnp, 00:00:00 Germain Protein, Pf, 30mcg/0.3ml,IM Covid-19 Vaccine 2021-01-25 Completed Marilynn S eybold ([facility]), Mrna-lnp, 00:00:00 Germain Protein, Pf, 30mcg/0.3ml,IM Covid-19 Vaccine 2021-01-25 Completed Marilynn S eybold ([facility]), Mrna-lnp, 00:00:00 Germain Protein, Pf, 30mcg/0.3ml,IM Covid-19 Vaccine 2021-01-25 Completed Marilynn S eybold ([facility]), Mrna-lnp, 00:00:00 Germain Protein, Pf, 30mcg/0.3ml,IM Covid-19 Vaccine 2021-01-25 Completed Marilynn S eybold ([facility]), Mrna-lnp, 00:00:00 Germain Protein, Pf, 30mcg/0.3ml,IM Covid-19 Vaccine 2021-01-25 Completed Marilynn S eybold ([facility]), Mrna-lnp, 00:00:00 Germain Protein, Pf, 30mcg/0.3ml,IM Covid-19 Vaccine 2021-01-25 Completed Marilynn S eybold ([facility]), Mrna-lnp, 00:00:00 Germain Protein, Pf, 30mcg/0.3ml,IM Covid-19 Vaccine 2021-01-25 Completed Marilynn S eybold (Pfizer), Mrna-lnp, 00:00:00 Germain Protein, Pf, 30mcg/0.3ml,IM Covid-19 Vaccine 2021-01-25 Completed Marilynn Liu eybold (Pfizer), Mrna-lnp, 00:00:00 Germain Protein, Pf, 30mcg/0.3ml,IM Covid-19 Vaccine 2021-01-25 Completed Marilynn S eybold ([facility]), Mrna-lnp, 00:00:00 Germain Protein, Pf, 30mcg/0.3ml,IM Covid-19 Vaccine 2021-01-25 Completed Marilynn Liu eybold ([facility]), Mrna-lnp, 00:00:00 Germain Protein, Pf, 30mcg/0.3ml,IM Covid-19 Vaccine 2021-01-25 Completed Marilynn S eybold ([facility]), Mrna-lnp, 00:00:00 Germain Protein, Pf, 30mcg/0.3ml,IM Covid-19 Vaccine 2021-01-25 Completed Marilynn Liu eybold ([facility]), Mrna-lnp, 00:00:00 Germain Protein, Pf, 30mcg/0.3ml,IM Covid-19 Vaccine 2021-01-25 Completed Marilynn Liu eybold (Pfizer), Mrna-lnp, 00:00:00 Germain Protein, Pf, 30mcg/0.3ml,IM Covid-19 Vaccine 2021-01-25 Completed Marilynn S eybold ([facility]), Mrna-lnp, 00:00:00 Germain Protein, Pf, 30mcg/0.3ml,IM Shingles IM 2020-12-12 Completed Marilynn Seybol d (Shingrix) 00:00:00 Shingles IM 2020-12-12 Completed Marilynn Seybol d (Shingrix) 00:00:00 Shingles IM 2020-12-12 Completed Marilynn Seybol d (Shingrix) 00:00:00 Shingles IM 2020-12-12 Completed Marilynn Seybol d - (Shingrix) 00:00:00 External Shingles IM 2020-12-12 Completed Marilynn Seybol d - (Shingrix) 00:00:00 External Shingles IM 2020-12-12 Completed Marilynn Seybol d - (Shingrix) 00:00:00 External Shingles IM 2020-12-12 Completed Marilynn Seybol d - (Shingrix) 00:00:00 External Shingles IM 2020-12-12 Completed Marilynn Seybol d - (Shingrix) 00:00:00 External Shingles IM 2020-12-12 Completed Marilynn Seybol d - (Shingrix) 00:00:00 External Shingles IM 2020-12-12 Completed Marilynn Seybol d - (Shingrix) 00:00:00 External Shingles IM 2020-12-12 Completed Marilynn Seybol d - (Shingrix) 00:00:00 External Shingles IM 2020-12-12 Completed Marilynn Seybol d - (Shingrix) 00:00:00 External Shingles IM 2020-12-12 Completed Marilynn Seybol d - (Shingrix) 00:00:00 External Shingles IM 2020-12-12 Completed Marilynn Seybol d - (Shingrix) 00:00:00 External Shingles IM 2020-12-12 Completed Marilynn Seybol d - (Shingrix) 00:00:00 External Shingles IM 2020-12-12 Completed Marilynn Seybol d - (Shingrix) 00:00:00 External Shingles IM 2020-12-12 Completed Marilynn Seybol d - (Shingrix) 00:00:00 External Shingles IM 2020-12-12 Completed Marilynn Seybol d (Shingrix) 00:00:00 Shingles IM 2020-12-12 Completed Marilynn Seybol d (Shingrix) 00:00:00 Shingles IM 2020-12-12 Completed Marilynn Seybol d (Shingrix) 00:00:00 Shingles IM 2020-12-12 Completed Marilynn Seybol d (Shingrix) 00:00:00 Shingles IM 2020-12-12 Completed Marilynn Seybol d (Shingrix) 00:00:00 Shingles IM 2020-12-12 Completed Marilynn Seybol d (Shingrix) 00:00:00 Shingles IM 2020-12-12 Completed Marilynn Seybol d (Shingrix) 00:00:00 Shingles IM 2020-12-12 Completed Marilynn Seybol d (Shingrix) 00:00:00 Shingles IM 2020-12-12 Completed Marilynn Seybol d (Shingrix) 00:00:00 Shingles IM 2020-12-12 Completed Marilynn Seybol d (Shingrix) 00:00:00 Shingles IM 2020-12-12 Completed Marilynn Seybol d (Shingrix) 00:00:00 Shingles IM 2020-12-12 Completed Marilynn Seybol d (Shingrix) 00:00:00 Zoster Recombinant 2020-12-12 Completed [facility] 00:00:00 [facility] Adenovirus 2020-12-12 Completed [facility] 00:00:00 [facility] Covid-19 Vaccine 2020-08-11 Completed Marilynn rooneybold (Pfizer), Mrna-lnp, 00:00:00 Germain Protein, Pf, 30mcg/0.3ml,IM Covid-19 Vaccine 2020-08-11 Completed Marilynn rooneybold (Pfizer), Mrna-lnp, 00:00:00 Germain Protein, Pf, 30mcg/0.3ml,IM Covid-19 Vaccine 2020-08-11 Completed Mariylnn rooneybold (Pfizer), Mrna-lnp, 00:00:00 Germain Protein, Pf, 30mcg/0.3ml,IM Covid-19 Vaccine 2020-08-11 Completed Marilynn rooneybold - (Pfizer), Mrna-lnp, 00:00:00 Exter nal Germain Protein, Pf, 30mcg/0.3ml,IM Covid-19 Vaccine 2020-08-11 Completed Marilynn Liu eybold - (Pfizer), Mrna-lnp, 00:00:00 Exter nal Germain Protein, Pf, 30mcg/0.3ml,IM Covid-19 Vaccine 2020-08-11 Completed Marilynn S eybold - (Pfizer), Mrna-lnp, 00:00:00 Exter nal Germain Protein, Pf, 30mcg/0.3ml,IM Covid-19 Vaccine 2020-08-11 Completed Marilynn S eybold - (Pfizer), Mrna-lnp, 00:00:00 Exter nal Germain Protein, Pf, 30mcg/0.3ml,IM Covid-19 Vaccine 2020-08-11 Completed Marilynn S eybold - (Pfizer), Mrna-lnp, 00:00:00 Exter nal Germain Protein, Pf, 30mcg/0.3ml,IM Covid-19 Vaccine 2020-08-11 Completed Marilynn S eybold - (Pfizer), Mrna-lnp, 00:00:00 Exter nal Germain Protein, Pf, 30mcg/0.3ml,IM Covid-19 Vaccine 2020-08-11 Completed Marilynn S eybold (Pfizer), Mrna-lnp, 00:00:00 Germain Protein, Pf, 30mcg/0.3ml,IM Covid-19 Vaccine 2020-08-11 Completed Marilynn S eybold - (Pfizer), Mrna-lnp, 00:00:00 Exter nal Germain Protein, Pf, 30mcg/0.3ml,IM Covid-19 Vaccine 2020-08-11 Completed Marilynn S eybold - (Pfizer), Mrna-lnp, 00:00:00 Exter nal Germain Protein, Pf, 30mcg/0.3ml,IM Covid-19 Vaccine 2020-08-11 Completed Marilynn S eybold - (Pfizer), Mrna-lnp, 00:00:00 Exter nal Germain Protein, Pf, 30mcg/0.3ml,IM Covid-19 Vaccine 2020-08-11 Completed Marilynn S eybold - (Pfizer), Mrna-lnp, 00:00:00 Exter nal Germain Protein, Pf, 30mcg/0.3ml,IM Covid-19 Vaccine 2020-08-11 Completed Marilynn S eybold - (Pfizer), Mrna-lnp, 00:00:00 Exter nal Germain Protein, Pf, 30mcg/0.3ml,IM Covid-19 Vaccine 2020-08-11 Completed Marilynn S eybold - ([facility]), Mrna-lnp, 00:00:00 Exter nal Germain Protein, Pf, 30mcg/0.3ml,IM Covid-19 Vaccine 2020-08-11 Completed Marilynn S eybold - ([facility]), Mrna-lnp, 00:00:00 Exter nal Germain Protein, Pf, 30mcg/0.3ml,IM Covid-19 Vaccine 2020-08-11 Completed Marilynn S eybold ([facility]), Mrna-lnp, 00:00:00 Germain Protein, Pf, 30mcg/0.3ml,IM Covid-19 Vaccine 2020-08-11 Completed Marilynn S eybold - ([facility]), Mrna-lnp, 00:00:00 Exter nal Germain Protein, Pf, 30mcg/0.3ml,IM Covid-19 Vaccine 2020-08-11 Completed Marilynn S eybold ([facility]), Mrna-lnp, 00:00:00 Germain Protein, Pf, 30mcg/0.3ml,IM Covid-19 [...] Covid-19 Vaccine 2020-08-11 Completed Marilynn S eybold ([facility]), Mrna-lnp, 00:00:00 Germain Protein, Pf, 30mcg/0.3ml,IM Covid-19 [...] Covid-19 Vaccine 2020-08-11 Completed Marilynn S eybold ([facility]), Mrna-lnp, 00:00:00 Germain Protein, Pf, 30mcg/0.3ml,IM Covid-19 Vaccine 2020-07-14 Completed Marilynn S eybold ([facility]), Mrna-lnp, 00:00:00 Germain Protein, Pf, 30mcg/0.3ml,IM Covid-19 Vaccine 2020-07-14 Completed Marilynn S eybold ([facility]), Mrna-lnp, 00:00:00 Germain Protein, Pf, 30mcg/0.3ml,IM Covid-19 Vaccine 2020-07-14 Completed Marilynn S eybold ([facility]), Mrna-lnp, 00:00:00 Germain Protein, Pf, 30mcg/0.3ml,IM Covid-19 Vaccine 2020-07-14 Completed Marilynn S eybold - ([facility]), Mrna-lnp, 00:00:00 Exter nal Germain Protein, Pf, 30mcg/0.3ml,IM Covid-19 Vaccine 2020-07-14 Completed Marilynn S eybold - ([facility]), Mrna-lnp, 00:00:00 Exter nal Germain Protein, Pf, 30mcg/0.3ml,IM Covid-19 Vaccine 2020-07-14 Completed Marilynn S eybold - ([facility]), Mrna-lnp, 00:00:00 Exter nal Germain Protein, Pf, 30mcg/0.3ml,IM Covid-19 Vaccine 2020-07-14 Completed Marilynn S eybold - ([facility]), Mrna-lnp, 00:00:00 Exter nal Germain Protein, Pf, 30mcg/0.3ml,IM Covid-19 Vaccine 2020-07-14 Completed Marilynn S eybold - ([facility]), Mrna-lnp, 00:00:00 Exter nal Germain Protein, Pf, 30mcg/0.3ml,IM Covid-19 Vaccine 2020-07-14 Completed Marilynn S eybold - ([facility]), Mrna-lnp, 00:00:00 Exter nal Germain Protein, Pf, 30mcg/0.3ml,IM Covid-19 Vaccine 2020-07-14 Completed Marilynn S eybold (Pfizer), Mrna-lnp, 00:00:00 Germain Protein, Pf, 30mcg/0.3ml,IM Covid-19 Vaccine 2020-07-14 Completed Marilynn S eybold - (Pfizer), Mrna-lnp, 00:00:00 Exter nal Germain Protein, Pf, 30mcg/0.3ml,IM Covid-19 Vaccine 2020-07-14 Completed Marilynn S eybold - ([facility]), Mrna-lnp, 00:00:00 Exter nal Germain Protein, Pf, 30mcg/0.3ml,IM Covid-19 Vaccine 2020-07-14 Completed Marilynn S eybold - ([facility]), Mrna-lnp, 00:00:00 Exter nal Germain Protein, Pf, 30mcg/0.3ml,IM Covid-19 Vaccine 2020-07-14 Completed Marilynn S eybold - (Pfizer), Mrna-lnp, 00:00:00 Exter nal Germain Protein, Pf, 30mcg/0.3ml,IM Covid-19 Vaccine 2020-07-14 Completed Marilynn S eybold - (Pfizer), Mrna-lnp, 00:00:00 Exter nal Germain Protein, Pf, 30mcg/0.3ml,IM Covid-19 Vaccine 2020-07-14 Completed Marilynn S eybold - (Pfizer), Mrna-lnp, 00:00:00 Exter nal Germain Protein, Pf, 30mcg/0.3ml,IM Covid-19 Vaccine 2020-07-14 Completed Marilynn S eybold - (Pfizer), Mrna-lnp, 00:00:00 Exter nal Germain Protein, Pf, 30mcg/0.3ml,IM Covid-19 Vaccine 2020-07-14 Completed Marilynn S eybold (Pfizer), Mrna-lnp, 00:00:00 Germain Protein, Pf, 30mcg/0.3ml,IM Covid-19 Vaccine 2020-07-14 Completed Marilynn S eybold - (Pfizer), Mrna-lnp, 00:00:00 Exter nal Germain Protein, Pf, 30mcg/0.3ml,IM Covid-19 Vaccine 2020-07-14 Completed Marilynn S eybold (Pfizer), Mrna-lnp, 00:00:00 Germain Protein, Pf, 30mcg/0.3ml,IM Covid-19 Vaccine 2020-07-14 Completed Marilynn S eybold (Pfizer), Mrna-lnp, 00:00:00 Germain Protein, Pf, 30mcg/0.3ml,IM Covid-19 Vaccine 2020-07-14 Completed Marilynn S eybold (Pfizer), Mrna-lnp, 00:00:00 Germain Protein, Pf, 30mcg/0.3ml,IM Covid-19 Vaccine 2020-07-14 Completed Marilynn S eybold ([facility]), Mrna-lnp, 00:00:00 Germain Protein, Pf, 30mcg/0.3ml,IM Covid-19 [...] Covid-19 Vaccine 2020-07-14 Completed Marilynn S eybold ([facility]), Mrna-lnp, 00:00:00 Germain Protein, Pf, 30mcg/0.3ml,IM Covid-19 Vaccine 2020-07-14 Completed Marilynn S eybold ([facility]), Mrna-lnp, 00:00:00 Germain Protein, Pf, 30mcg/0.3ml,IM Covid-19 Vaccine 2020-07-14 Completed Marilynn S eybold ([facility]), Mrna-lnp, 00:00:00 Germain Protein, Pf, 30mcg/0.3ml,IM Covid-19 Vaccine 2020-07-14 Completed Marilynn S eybold ([facility]), Mrna-lnp, 00:00:00 Germain Protein, Pf, 30mcg/0.3ml,IM Covid-19 Vaccine 2020-07-14 Completed Marilynn S eybold ([facility]), Mrna-lnp, 00:00:00 Germain Protein, Pf, 30mcg/0.3ml,IM Covid-19 Vaccine 2020-07-14 Completed Marilynn S eybold ([facility]), Mrna-lnp, 00:00:00 Germain Protein, Pf, 30mcg/0.3ml,IM Covid-19 Vaccine 2020-07-14 Completed Marilynn S eybold ([facility]), Mrna-lnp, 00:00:00 Germain Protein, Pf, 30mcg/0.3ml,IM Covid-19 Vaccine 2020-07-14 Completed Marilynn S eybold ([facility]), Mrna-lnp, 00:00:00 Germain Protein, Pf, 30mcg/0.3ml,IM Covid-19 Vaccine 2020-06-23 Completed Marilynn S eybold ([facility]), Mrna-lnp, 00:00:00 Germain Protein, Pf, 30mcg/0.3ml,IM Covid-19 Vaccine 2020-06-23 Completed Marilynn S eybold ([facility]), Mrna-lnp, 00:00:00 Germain Protein, Pf, 30mcg/0.3ml,IM Covid-19 Vaccine 2020-06-23 Completed Marilynn S eybold ([facility]), Mrna-lnp, 00:00:00 Germain Protein, Pf, 30mcg/0.3ml,IM Covid-19 Vaccine 2020-06-23 Completed Marilynn S eybold - (Pfizer), Mrna-lnp, 00:00:00 Exter nal Germain Protein, Pf, 30mcg/0.3ml,IM Covid-19 Vaccine 2020-06-23 Completed Marilynn S eybold - (Pfizer), Mrna-lnp, 00:00:00 Exter nal Germain Protein, Pf, 30mcg/0.3ml,IM Covid-19 Vaccine 2020-06-23 Completed Marilynn S eybold - ([facility]), Mrna-lnp, 00:00:00 Exter nal Germain Protein, Pf, 30mcg/0.3ml,IM Covid-19 Vaccine 2020-06-23 Completed Marilynn S [facility] - ([facility]), Mrna-lnp, 00:00:00 Exter nal Germain Protein, Pf, 30mcg/0.3ml,IM Covid-19 Vaccine 2020-06-23 Completed Marilynn S [facility] - ([facility]), Mrna-lnp, 00:00:00 Exter nal Germain Protein, Pf, 30mcg/0.3ml,IM Covid-19 Vaccine 2020-06-23 Completed Marilynn S eybold - (Pfizer), Mrna-lnp, 00:00:00 Exter nal Germain Protein, Pf, 30mcg/0.3ml,IM Covid-19 Vaccine 2020-06-23 Completed Marilynn S eybold (Pfizer), Mrna-lnp, 00:00:00 Germain Protein, Pf, 30mcg/0.3ml,IM Covid-19 Vaccine 2020-06-23 Completed Marilynn S eybold - (Pfizer), Mrna-lnp, 00:00:00 Exter nal Germain Protein, Pf, 30mcg/0.3ml,IM Covid-19 Vaccine 2020-06-23 Completed Marilynn S eybold - (Pfizer), Mrna-lnp, 00:00:00 Exter nal Germain Protein, Pf, 30mcg/0.3ml,IM Covid-19 Vaccine 2020-06-23 Completed Marilynn S eybold - (Pfizer), Mrna-lnp, 00:00:00 Exter nal Germain Protein, Pf, 30mcg/0.3ml,IM Covid-19 Vaccine 2020-06-23 Completed Marilynn S eybold - ([facility]), Mrna-lnp, 00:00:00 Exter nal Germain Protein, Pf, 30mcg/0.3ml,IM Covid-19 Vaccine 2020-06-23 Completed Marilynn S eybold - ([facility]), Mrna-lnp, 00:00:00 Exter nal Germain Protein, Pf, 30mcg/0.3ml,IM Covid-19 Vaccine 2020-06-23 Completed Marilynn S eybold - ([facility]), Mrna-lnp, 00:00:00 Exter nal Germain Protein, Pf, 30mcg/0.3ml,IM Covid-19 Vaccine 2020-06-23 Completed Marilynn S eybold - ([facility]), Mrna-lnp, 00:00:00 Exter nal Germain Protein, Pf, 30mcg/0.3ml,IM Covid-19 Vaccine 2020-06-23 Completed Marilynn S eybold ([facility]), Mrna-lnp, 00:00:00 Germain Protein, Pf, 30mcg/0.3ml,IM Covid-19 Vaccine 2020-06-23 Completed Marilynn S eybold - ([facility]), Mrna-lnp, 00:00:00 Exter nal Germain Protein, Pf, 30mcg/0.3ml,IM Covid-19 Vaccine 2020-06-23 Completed Marilynn S eybold ([facility]), Mrna-lnp, 00:00:00 Germain Protein, Pf, 30mcg/0.3ml,IM Covid-19 Vaccine 2020-06-23 Completed Marilynn S eybold ([facility]), Mrna-lnp, 00:00:00 Germain Protein, Pf, 30mcg/0.3ml,IM Covid-19 Vaccine 2020-06-23 Completed Marilynn S eybold ([facility]), Mrna-lnp, 00:00:00 Germain Protein, Pf, 30mcg/0.3ml,IM Covid-19 Vaccine 2020-06-23 Completed Marilynn S eybold ([facility]), Mrna-lnp, 00:00:00 Germain Protein, Pf, 30mcg/0.3ml,IM Covid-19 Vaccine 2020-06-23 Completed Marilynn S eybold ([facility]), Mrna-lnp, 00:00:00 Germain Protein, Pf, 30mcg/0.3ml,IM Covid-19 Vaccine 2020-06-23 Completed Marilynn S eybold ([facility]), Mrna-lnp, 00:00:00 Germain Protein, Pf, 30mcg/0.3ml,IM Covid-19 Vaccine 2020-06-23 Completed Marilynn S eybold ([facility]), Mrna-lnp, 00:00:00 Germain Protein, Pf, 30mcg/0.3ml,IM Covid-19 Vaccine 2020-06-23 Completed Marilynn S eybold ([facility]), Mrna-lnp, 00:00:00 Germain Protein, Pf, 30mcg/0.3ml,IM Covid-19 Vaccine 2020-06-23 Completed Marilynn S eybold ([facility]), Mrna-lnp, 00:00:00 Germain Protein, Pf, 30mcg/0.3ml,IM Covid-19 Vaccine 2020-06-23 Completed Marilynn S eybold ([facility]), Mrna-lnp, 00:00:00 Germain Protein, Pf, 30mcg/0.3ml,IM Covid-19 Vaccine 2020-06-23 Completed Marilynn S eybold ([facility]), Mrna-lnp, 00:00:00 Germain Protein, Pf, 30mcg/0.3ml,IM Covid-19 Vaccine 2020-06-23 Completed Marilynn S eybold ([facility]), Mrna-lnp, 00:00:00 Germain Protein, Pf, 30mcg/0.3ml,IM Covid-19 Vaccine 2020-06-23 Completed Marilynn S eybold ([facility]), Mrna-lnp, 00:00:00 Germain Protein, Pf, 30mcg/0.3ml,IM Covid-19 Vaccine 2020-06-23 Completed Marilynn S eybold ([facility]), Mrna-lnp, 00:00:00 Germain Protein, Pf, 30mcg/0.3ml,IM Covid-19 Vaccine 2020-06-23 Completed Marilynn S eybold ([facility]), Mrna-lnp, 00:00:00 Germain Protein, Pf, 30mcg/0.3ml,IM Covid-19 Vaccine 2020-06-23 Completed Marilynn rooneybold ([facility]), Mrna-lnp, 00:00:00 Germain Protein, Pf, 30mcg/0.3ml,IM Covid-19 Vaccine 2020-06-23 Completed Marilynn rooneybold ([facility]), Mrna-lnp, 00:00:00 Germain Protein, Pf, 30mcg/0.3ml,IM Covid-19 Vaccine 2020-06-23 Completed Marilynn Liu eybold ([facility]), Mrna-lnp, 00:00:00 Germain Protein, Pf, 30mcg/0.3ml,IM Influenza Virus 2020-01-17 Completed Marilynn Se ybold Vaccine, 00:00:00 Quadrivalent, High Dose, Age 65 And Up Influenza Virus 2020-01-17 Completed Marilynn Se ybold Vaccine, 00:00:00 Quadrivalent, High Dose, Age 65 And Up Influenza Virus 2020-01-17 Completed Marilynn Se ybold Vaccine, 00:00:00 Quadrivalent, High Dose, Age 65 And Up Influenza Virus 2020-01-17 Completed Marilynn Se ybold - Vaccine, 00:00:00 External Quadrivalent, High Dose, Age 65 And Up Influenza Virus 2020-01-17 Completed Marilynn Se ybold - Vaccine, 00:00:00 External Quadrivalent, High Dose, Age 65 And Up Influenza Virus 2020-01-17 Completed Marilynn Se ybold - Vaccine, 00:00:00 External Quadrivalent, High Dose, Age 65 And Up Influenza Virus 2020-01-17 Completed Marilynn Se ybold - Vaccine, 00:00:00 External Quadrivalent, High Dose, Age 65 And Up Influenza Virus 2020-01-17 Completed Marilynn Se ybold - Vaccine, 00:00:00 External Quadrivalent, High Dose, Age 65 And Up Influenza Virus 2020-01-17 Completed Marilynn Se ybold - Vaccine, 00:00:00 External Quadrivalent, High Dose, Age 65 And Up Influenza Virus 2020-01-17 Completed Marilynn Se ybold Vaccine, 00:00:00 Quadrivalent, High Dose, Age 65 And Up Influenza Virus 2020-01-17 Completed Marilynn Se ybold - Vaccine, 00:00:00 External Quadrivalent, High Dose, Age 65 And Up Influenza Virus 2020-01-17 Completed Marilynn Se ybold - Vaccine, 00:00:00 External Quadrivalent, High Dose, Age 65 And Up Influenza Virus 2020-01-17 Completed Marilynn Se ybold - Vaccine, 00:00:00 External Quadrivalent, High Dose, Age 65 And Up Influenza Virus 2020-01-17 Completed Marilynn Se ybold - Vaccine, 00:00:00 External Quadrivalent, High Dose, Age 65 And Up Influenza Virus 2020-01-17 Completed Marilynn Se ybold - Vaccine, 00:00:00 External Quadrivalent, High Dose, Age 65 And Up Influenza Virus 2020-01-17 Completed Marilynn Se ybold - Vaccine, 00:00:00 External Quadrivalent, High Dose, Age 65 And Up Influenza Virus 2020-01-17 Completed Marilynn Se ybold Vaccine, 00:00:00 Quadrivalent, High Dose, Age 65 And Up Influenza Virus 2020-01-17 Completed Marilynn Se ybold - Vaccine, 00:00:00 External Quadrivalent, High Dose, Age 65 And Up Influenza Virus 2020-01-17 Completed Marilynn Se ybold - Vaccine, 00:00:00 External Quadrivalent, High Dose, Age 65 And Up Influenza Virus 2020-01-17 Completed Marilynn Se ybold Vaccine, 00:00:00 Quadrivalent, High Dose, Age 65 And Up Influenza Virus 2020-01-17 Completed Marilynn Se ybold Vaccine, 00:00:00 Quadrivalent, High Dose, Age 65 And Up Influenza Virus 2020-01-17 Completed Marilynn Se ybold Vaccine, 00:00:00 Quadrivalent, High Dose, Age 65 And Up Influenza Virus 2020-01-17 Completed Marilynn Se ybold Vaccine, 00:00:00 Quadrivalent, High Dose, Age 65 And Up Influenza Virus 2020-01-17 Completed Marilynn Se ybold Vaccine, 00:00:00 Quadrivalent, High Dose, Age 65 And Up Influenza Virus 2020-01-17 Completed Marilynn Se ybold Vaccine, 00:00:00 Quadrivalent, High Dose, Age 65 And Up Influenza Virus 2020-01-17 Completed Marilynn Se ybold Vaccine, 00:00:00 Quadrivalent, High Dose, Age 65 And Up Influenza Virus 2020-01-17 Completed Marilynn Se ybold Vaccine, 00:00:00 Quadrivalent, High Dose, Age 65 And Up Influenza Virus 2020-01-17 Completed Marilynn Se ybold Vaccine, 00:00:00 Quadrivalent, High Dose, Age 65 And Up Influenza Virus 2020-01-17 Completed Marilynn Se ybold Vaccine, 00:00:00 Quadrivalent, High Dose, Age 65 And Up Influenza Virus 2020-01-17 Completed Marilynn Se ybold Vaccine, 00:00:00 Quadrivalent, High Dose, Age 65 And Up Influenza Virus 2020-01-17 Completed Marilynn Se ybold Vaccine, 00:00:00 Quadrivalent, High Dose, Age 65 And Up Influenza Virus 2020-01-17 Completed Marilynn Se ybold Vaccine, 00:00:00 Quadrivalent, High Dose, Age 65 And Up Influenza Virus 2020-01-17 Completed Marilynn Se ybold Vaccine, 00:00:00 Quadrivalent, High Dose, Age 65 And Up Influenza Virus 2020-01-17 Completed Marilynn Se ybold Vaccine, 00:00:00 Quadrivalent, High Dose, Age 65 And Up Influenza Virus 2020-01-17 Completed Marilynn Se ybold Vaccine, 00:00:00 Quadrivalent, High Dose, Age 65 And Up Influenza Virus 2020-01-17 Completed Marilynn Se ybold Vaccine, 00:00:00 Quadrivalent, High Dose, Age 65 And Up Influenza Virus 2020-01-17 Completed Marilynn Se ybold Vaccine, 00:00:00 Quadrivalent, High Dose, Age 65 And Up Influenza, 2020-01-17 Completed [facility] Quadrivalent 00:00:00 [place] MD Galvin [facility] Influenza (IM) 2020-01-17 Completed [facility] Preservative Free 00:00:00 [place] Sharmin Hanson [facility] Influenza Virus 2019-02-16 Completed Marilynn Se ybold Vaccine, High Dose, 00:00:00 Age 65 And Up Influenza Virus 2019-02-16 Completed Marilynn Se ybold Vaccine, High Dose, 00:00:00 Age 65 And Up Influenza Virus 2019-02-16 Completed Marilynn Se ybold Vaccine, High Dose, 00:00:00 Age 65 And Up Influenza Virus 2019-02-16 Completed Marilynn Se ybold - Vaccine, High Dose, 00:00:00 Exter nal Age 65 And Up Influenza Virus 2019-02-16 Completed Marilynn Se ybold - Vaccine, High Dose, 00:00:00 Exter nal Age 65 And Up Influenza Virus 2019-02-16 Completed Marilynn Se ybold - Vaccine, High Dose, 00:00:00 Exter nal Age 65 And Up Influenza Virus 2019-02-16 Completed Marilynn Se ybold - Vaccine, High Dose, 00:00:00 Exter nal Age 65 And Up Influenza Virus 2019-02-16 Completed Marilynn Se ybold - Vaccine, High Dose, 00:00:00 Exter nal Age 65 And Up Influenza Virus 2019-02-16 Completed Marilynn Se ybold - Vaccine, High Dose, 00:00:00 Exter nal Age 65 And Up Influenza Virus 2019-02-16 Completed Marilynn Se ybold Vaccine, High Dose, 00:00:00 Age 65 And Up Influenza Virus 2019-02-16 Completed Marilynn Se ybold - Vaccine, High Dose, 00:00:00 Exter nal Age 65 And Up Influenza Virus 2019-02-16 Completed Marilynn Se ybold - Vaccine, High Dose, 00:00:00 Exter nal Age 65 And Up Influenza Virus 2019-02-16 Completed Marilynn Se ybold - Vaccine, High Dose, 00:00:00 Exter nal Age 65 And Up Influenza Virus 2019-02-16 Completed Marilynn Se ybold - Vaccine, High Dose, 00:00:00 Exter nal Age 65 And Up Influenza Virus 2019-02-16 Completed Marilynn Se ybold - Vaccine, High Dose, 00:00:00 Exter nal Age 65 And Up Influenza Virus 2019-02-16 Completed Marilynn Se ybold - Vaccine, High Dose, 00:00:00 Exter nal Age 65 And Up Influenza Virus 2019-02-16 Completed Marilynn Se ybold Vaccine, High Dose, 00:00:00 Age 65 And Up Influenza Virus 2019-02-16 Completed Marilynn Se ybold - Vaccine, High Dose, 00:00:00 Exter nal Age 65 And Up Influenza Virus 2019-02-16 Completed Marilynn Se ybold - Vaccine, High Dose, 00:00:00 Exter nal Age 65 And Up Influenza Virus 2019-02-16 [...] Dose, 00:00:00 Age 65 And Up Influenza Split High 2019-02-16 Completed [facility] Dose Preservative 00:00:00 Vero Bassett [facility] Influenza Virus 2018-03-02 Completed Marilynn Se ybold Vaccine, High Dose, 00:00:00 Age 65 And Up Influenza Virus 2018-03-02 Completed Marilynn Se ybold Vaccine, High Dose, 00:00:00 Age 65 And Up Influenza Virus 2018-03-02 Completed Marilynn Se ybold Vaccine, High Dose, 00:00:00 Age 65 And Up Influenza Virus 2018-03-02 Completed Marilynn Se ybold - Vaccine, High Dose, 00:00:00 Exter nal Age 65 And Up Influenza Virus 2018-03-02 Completed Marilynn Se ybold - Vaccine, High Dose, 00:00:00 Exter nal Age 65 And Up Influenza Virus 2018-03-02 Completed Marilynn Se ybold - Vaccine, High Dose, 00:00:00 Exter nal Age 65 And Up Influenza Virus 2018-03-02 Completed Marilynn Se ybold - Vaccine, High Dose, 00:00:00 Exter nal Age 65 And Up Influenza Virus 2018-03-02 Completed Marilynn Se ybold - Vaccine, High Dose, 00:00:00 Exter nal Age 65 And Up Influenza Virus 2018-03-02 Completed Marilynn Se ybold - Vaccine, High Dose, 00:00:00 Exter nal Age 65 And Up Influenza Virus 2018-03-02 Completed Marilynn Se ybold Vaccine, High Dose, 00:00:00 Age 65 And Up Influenza Virus 2018-03-02 Completed Marilynn Se ybold - Vaccine, High Dose, 00:00:00 Exter nal Age 65 And Up Influenza Virus 2018-03-02 Completed Marilynn Se ybold - Vaccine, High Dose, 00:00:00 Exter nal Age 65 And Up Influenza Virus 2018-03-02 Completed Marilynn Se ybold - Vaccine, High Dose, 00:00:00 Exter nal Age 65 And Up Influenza Virus 2018-03-02 Completed Marilynn Se ybold - Vaccine, High Dose, 00:00:00 Exter nal Age 65 And Up Influenza Virus 2018-03-02 Completed Marilynn Se ybold - Vaccine, High Dose, 00:00:00 Exter nal Age 65 And Up Influenza Virus 2018-03-02 Completed Marilynn Se ybold - Vaccine, High Dose, 00:00:00 Exter nal Age 65 And Up Influenza Virus 2018-03-02 Completed Marilynn Se ybold Vaccine, High Dose, 00:00:00 Age 65 And Up Influenza Virus 2018-03-02 Completed Marilynn Se ybold - Vaccine, High Dose, 00:00:00 Exter nal Age 65 And Up Influenza Virus 2018-03-02 Completed Marilynn Se ybold - Vaccine, High Dose, 00:00:00 Exter nal Age 65 And Up Influenza Virus 2018-03-02 [...] Dose, 00:00:00 Age 65 And Up Influenza Split High 2018-03-02 Completed [facility] Dose [facility]ervative [facility] Influenza Virus 2017-02-03 Completed Marilynn Se ybold Vaccine, High Dose, 00:00:00 Age 65 And Up Influenza Virus 2017-02-03 Completed Marilynn Se ybold Vaccine, High Dose, 00:00:00 Age 65 And Up Influenza Virus 2017-02-03 Completed Marilynn Se ybold Vaccine, High Dose, 00:00:00 Age 65 And Up Influenza Virus 2017-02-03 Completed Marilynn Se ybold - Vaccine, High Dose, 00:00:00 Exter nal Age 65 And Up Influenza Virus 2017-02-03 Completed Marilynn Se ybold - Vaccine, High Dose, 00:00:00 Exter nal Age 65 And Up Influenza Virus 2017-02-03 Completed Marilynn Se ybold - Vaccine, High Dose, 00:00:00 Exter nal Age 65 And Up Influenza Virus 2017-02-03 Completed Marilynn Se ybold - Vaccine, High Dose, 00:00:00 Exter nal Age 65 And Up Influenza Virus 2017-02-03 Completed Marilynn Se ybold - Vaccine, High Dose, 00:00:00 Exter nal Age 65 And Up Influenza Virus 2017-02-03 Completed Marilynn Se ybold - Vaccine, High Dose, 00:00:00 Exter nal Age 65 And Up Influenza Virus 2017-02-03 Completed Marilynn Se ybold Vaccine, High Dose, 00:00:00 Age 65 And Up Influenza Virus 2017-02-03 Completed Marilynn Se ybold - Vaccine, High Dose, 00:00:00 Exter nal Age 65 And Up Influenza Virus 2017-02-03 Completed Marilynn Se ybold - Vaccine, High Dose, 00:00:00 Exter nal Age 65 And Up Influenza Virus 2017-02-03 Completed Marilynn Se ybold - Vaccine, High Dose, 00:00:00 Exter nal Age 65 And Up Influenza Virus 2017-02-03 Completed Marilynn Se ybold - Vaccine, High Dose, 00:00:00 Exter nal Age 65 And Up Influenza Virus 2017-02-03 Completed Marilynn Se ybold - Vaccine, High Dose, 00:00:00 Exter nal Age 65 And Up Influenza Virus 2017-02-03 Completed Marilynn Se ybold - Vaccine, High Dose, 00:00:00 Exter nal Age 65 And Up Influenza Virus 2017-02-03 Completed Marilynn Se ybold Vaccine, High Dose, 00:00:00 Age 65 And Up Influenza Virus 2017-02-03 Completed Marilynn Se ybold - Vaccine, High Dose, 00:00:00 Exter nal Age 65 And Up Influenza Virus 2017-02-03 Completed Marilynn Se ybold - Vaccine, High Dose, 00:00:00 Exter nal Age 65 And Up Influenza Virus 2017-02-03 [...] Dose, 00:00:00 Age 65 And Up Influenza Split High 2017-02-03 Completed [facility] Dose Preservative 00:00:00 [facility] Tdap- (Boostrix, 2016-12-26 Completed Marilynn S eybold Adacel) 00:00:00 Tdap- (Boostrix, 2016-12-26 Completed Marilynn S eybold Adacel) 00:00:00 Tdap- (Boostrix, 2016-12-26 Completed Marilynn S eybold Adacel) 00:00:00 Tdap- (Boostrix, 2016-12-26 Completed Marilynn S eybold - Adacel) 00:00:00 External Tdap- (Boostrix, 2016-12-26 Completed Marilynn S eybold - Adacel) 00:00:00 External Tdap- (Boostrix, 2016-12-26 Completed Marilynn S eybold - Adacel) 00:00:00 External Tdap- (Boostrix, 2016-12-26 Completed Marilynn S eybold - Adacel) 00:00:00 External Tdap- (Boostrix, 2016-12-26 Completed Marilynn S eybold - Adacel) 00:00:00 External Tdap- (Boostrix, 2016-12-26 Completed Marilynn S eybold Adacel) 00:00:00 Tdap- (Boostrix, 2016-12-26 Completed Marilynn S eybold - Adacel) 00:00:00 External Tdap- (Boostrix, 2016-12-26 Completed Marilynn S eybold - Adacel) 00:00:00 External Tdap- (Boostrix, 2016-12-26 Completed Marilynn S eybold - Adacel) 00:00:00 External Tdap- (Boostrix, 2016-12-26 Completed Marilynn S eybold - Adacel) 00:00:00 External Tdap- (Boostrix, 2016-12-26 Completed Marilynn S eybold - Adacel) 00:00:00 External Tdap- (Boostrix, 2016-12-26 Completed Marilynn S eybold - Adacel) 00:00:00 External Tdap- (Boostrix, 2016-12-26 Completed Marilynn S eybold - Adacel) 00:00:00 External Tdap- (Boostrix, 2016-12-26 Completed Marilynn S eybold Adacel) 00:00:00 Tdap- (Boostrix, 2016-12-26 Completed Marilynn S eybold - Adacel) 00:00:00 External Tdap- (Boostrix, 2016-12-26 Completed Marilynn S eybold - Adacel) 00:00:00 External Tdap- (Boostrix, 2016-12-26 Completed Marilynn S eybold [...] 2016-12-26 Completed Marilynn S eybold Adacel) 00:00:00 Tdap 2016-12-26 Completed [facility] 00:00:00 [place] [facility] Pneumococcal Vaccine, 2016-01-25 Completed Renate sey Seybold [...] Pneumococcal Vaccine, 2016-01-25 Completed Renate sey Seybold - Conjugate 13 00:00:00 External Influenza Virus 2016-01-25 Completed Marilynn Se ybold - Vaccine, age 6 months 00:00:00 Ext ernal and up Pneumococcal Vaccine, 2016-01-25 Completed Renate sey Seybold - Conjugate 13 00:00:00 External Influenza Virus 2016-01-25 Completed Marilynn Se ybold - Vaccine, age 6 months 00:00:00 Ext ernal and up Pneumococcal Vaccine, 2016-01-25 Completed Renate sey Seybold - Conjugate 13 00:00:00 External Influenza Virus 2016-01-25 Completed Marilynn Se ybold - Vaccine, age 6 months 00:00:00 Ext ernal and up Pneumococcal Vaccine, 2016-01-25 Completed Renate sey Seybold - Conjugate 13 00:00:00 External Influenza Virus 2016-01-25 Completed Marilynn Se ybold - Vaccine, age 6 months 00:00:00 Ext ernal and up Pneumococcal Vaccine, 2016-01-25 Completed Renate sey Seybold - Conjugate 13 00:00:00 External Influenza Virus 2016-01-25 Completed Marilynn Se ybold - Vaccine, age 6 months 00:00:00 Ext ernal and up Pneumococcal Vaccine, 2016-01-25 Completed Renate sey Seybold Conjugate 13 00:00:00 Influenza Virus 2016-01-25 Completed Marilynn Se ybold Vaccine, age 6 months 00:00:00 and up Pneumococcal Vaccine, 2016-01-25 Completed Renate sey Seybold - Conjugate 13 00:00:00 External Influenza Virus 2016-01-25 Completed Marilynn Se ybold - Vaccine, age 6 months 00:00:00 Ext ernal and up Pneumococcal Vaccine, 2016-01-25 Completed Renate sey Seybold - Conjugate 13 00:00:00 External Influenza Virus 2016-01-25 Completed Marilynn Se ybold - Vaccine, age 6 months 00:00:00 Ext ernal and up Pneumococcal Vaccine, 2016-01-25 Completed Renate sey Seybold - Conjugate 13 00:00:00 External Influenza Virus 2016-01-25 Completed Marilynn Se ybold - Vaccine, age 6 months 00:00:00 Ext ernal and up Pneumococcal Vaccine, 2016-01-25 Completed Renate sey Seybold - Conjugate 13 00:00:00 External Influenza Virus 2016-01-25 Completed Marilynn Se ybold - Vaccine, age 6 months 00:00:00 Ext ernal and up Pneumococcal Vaccine, 2016-01-25 Completed Renate sey Seybold - Conjugate 13 00:00:00 External Influenza Virus 2016-01-25 Completed Marilynn Se ybold - Vaccine, age 6 months 00:00:00 Ext ernal and up Pneumococcal Vaccine, 2016-01-25 Completed Renate sey Seybold - Conjugate 13 00:00:00 External Influenza Virus 2016-01-25 Completed Marilynn Se ybold - Vaccine, age 6 months 00:00:00 Ext ernal and up Pneumococcal Vaccine, 2016-01-25 Completed Renate sey Seybold Conjugate 13 00:00:00 Pneumococcal Vaccine, 2016-01-25 Completed Renate sey Seybold - Conjugate 13 00:00:00 External Influenza Virus 2016-01-25 Completed Marilynn Se ybold - Vaccine, age 6 months 00:00:00 Ext ernal and up Influenza Virus 2016-01-25 Completed Marilynn Se ybold Vaccine, age 6 months 00:00:00 and up Pneumococcal Vaccine, 2016-01-25 Completed Renate sey Seybold - Conjugate 13 00:00:00 External Influenza Virus 2016-01-25 Completed Marilynn Se ybold - Vaccine, age 6 months 00:00:00 Ext ernal and up Pneumococcal Vaccine, 2016-01-25 Completed Renate sey Seybold - Conjugate 13 00:00:00 External Influenza Virus 2016-01-25 Completed Marilynn Se ybold - Vaccine, age 6 months 00:00:00 Ext ernal and up Pneumococcal Vaccine, 2016-01-25 Completed Renate [...] Vaccine, age 6 months 00:00:00 and up Influenza, 2016-01-25 Completed [facility] Quadrivalent 00:00:00 [facility] Influenza, 2016-01-25 Completed [facility] Quadrivalent 00:00:00 [facility] Pneumococcal 2016-01-25 Completed [facility] f Conjugate 13-Valent 00:00:00 [facility] Shingles SQ 2015-12-27 Completed Marilynn Seybol d (Zostavax) 00:00:00 Shingles SQ 2015-12-27 Completed Marilynn Seybol d (Zostavax) 00:00:00 Shingles SQ 2015-12-27 Completed Marilynn Seybol d (Zostavax) 00:00:00 Shingles SQ 2015-12-27 Completed Marilynn Seybol d - (Zostavax) 00:00:00 External Shingles SQ 2015-12-27 Completed Marilynn Seybol d - (Zostavax) 00:00:00 External Shingles SQ 2015-12-27 Completed Marilynn Seybol d - (Zostavax) 00:00:00 External Shingles SQ 2015-12-27 Completed Marilynn Seybol d - (Zostavax) 00:00:00 External Shingles SQ 2015-12-27 Completed Marilynn Seybol d - (Zostavax) 00:00:00 External Shingles SQ 2015-12-27 Completed Marilynn Seybol d (Zostavax) 00:00:00 Shingles SQ 2015-12-27 Completed Marilynn Seybol d - (Zostavax) 00:00:00 External Shingles SQ 2015-12-27 Completed Marilynn Seybol d - (Zostavax) 00:00:00 External Shingles SQ 2015-12-27 Completed Marilynn Seybol d - (Zostavax) 00:00:00 External Shingles SQ 2015-12-27 Completed Marilynn Seybol d - (Zostavax) 00:00:00 External Shingles SQ 2015-12-27 Completed Marilynn Seybol d - (Zostavax) 00:00:00 External Shingles SQ 2015-12-27 Completed Marilynn Seybol d - (Zostavax) 00:00:00 External Shingles SQ 2015-12-27 Completed Marilynn Seybol d - (Zostavax) 00:00:00 External Shingles SQ 2015-12-27 Completed Marilynn Seybol d (Zostavax) 00:00:00 Shingles SQ 2015-12-27 Completed Marilynn Seybol d - (Zostavax) 00:00:00 External Shingles SQ 2015-12-27 Completed Marilynn Seybol d - (Zostavax) 00:00:00 External Shingles SQ 2015-12-27 Completed Marilynn Seybol d (Zostavax) 00:00:00 Shingles SQ 2015-12-27 Completed Marilynn Seybol d (Zostavax) 00:00:00 Shingles SQ 2015-12-27 Completed Marilynn Seybol d (Zostavax) 00:00:00 Shingles SQ 2015-12-27 Completed Marilynn Seybol d (Zostavax) 00:00:00 Shingles SQ 2015-12-27 Completed Marilynn Seybol d (Zostavax) 00:00:00 Shingles SQ 2015-12-27 Completed Marilynn Seybol d (Zostavax) 00:00:00 Shingles 2015-12-27 Completed Marilynn Seybol d (Zostavax) 00:00:00 Shingles SQ 2015-12-27 Completed Marilynn Seybol d (Zostavax) 00:00:00 Shingles SQ 2015-12-27 Completed Marilynn Seybol d (Zostavax) 00:00:00 Shingles SQ 2015-12-27 Completed Marilynn Seybol d (Zostavax) 00:00:00 Shingles SQ 2015-12-27 Completed Marilynn Seybol d (Zostavax) 00:00:00 Shingles SQ 2015-12-27 Completed Marilynn Seybol d (Zostavax) 00:00:00 Shingles SQ 2015-12-27 Completed Marilynn Seybol d (Zostavax) 00:00:00 Shingles SQ 2015-12-27 Completed Marilynn Seybol d (Zostavax) 00:00:00 Shingles SQ 2015-12-27 Completed Marilynn Seybol d (Zostavax) 00:00:00 Shingles SQ 2015-12-27 Completed Marilynn Seybol d (Zostavax) 00:00:00 Shingles SQ 2015-12-27 Completed Marilynn Seybol d (Zostavax) 00:00:00 Shingles SQ 2015-12-27 Completed Marilynn Seybol d (Zostavax) 00:00:00 Zoster, Unspecified 2015-12-27 Completed Unive [facility]ity of 00:00:00 [place] MD Galvin [facility] Influenza Virus 2015-01-23 Completed Marilynn Se ybold Vaccine, High Dose, 00:00:00 Age 65 And Up Influenza Virus 2015-01-23 Completed Marilynn Se ybold Vaccine, High Dose, 00:00:00 Age 65 And Up Influenza Virus 2015-01-23 Completed Marilynn Se ybold Vaccine, High Dose, 00:00:00 Age 65 And Up Influenza Virus 2015-01-23 Completed Marilynn Se ybold - Vaccine, High Dose, 00:00:00 Exter nal Age 65 And Up Influenza Virus 2015-01-23 Completed Marilynn Se ybold - Vaccine, High Dose, 00:00:00 Exter nal Age 65 And Up Influenza Virus 2015-01-23 Completed Marilynn Se ybold - Vaccine, High Dose, 00:00:00 Exter nal Age 65 And Up Influenza Virus 2015-01-23 Completed Marilynn Se ybold - Vaccine, High Dose, 00:00:00 Exter nal Age 65 And Up Influenza Virus 2015-01-23 Completed Marilynn Se ybold - Vaccine, High Dose, 00:00:00 Exter nal Age 65 And Up Influenza Virus 2015-01-23 Completed Marilynn Se ybold Vaccine, High Dose, 00:00:00 Age 65 And Up Influenza Virus 2015-01-23 Completed Marilynn Se ybold - Vaccine, High Dose, 00:00:00 Exter nal Age 65 And Up Influenza Virus 2015-01-23 Completed Marilynn Se ybold - Vaccine, High Dose, 00:00:00 Exter nal Age 65 And Up Influenza Virus 2015-01-23 Completed Marilynn Se ybold - Vaccine, High Dose, 00:00:00 Exter nal Age 65 And Up Influenza Virus 2015-01-23 Completed Marilynn Se ybold - Vaccine, High Dose, 00:00:00 Exter nal Age 65 And Up Influenza Virus 2015-01-23 Completed Marilynn Se ybold - Vaccine, High Dose, 00:00:00 Exter nal Age 65 And Up Influenza Virus 2015-01-23 Completed Marilynn Se ybold - Vaccine, High Dose, 00:00:00 Exter nal Age 65 And Up Influenza Virus 2015-01-23 Completed Marilynn Se ybold Vaccine, High Dose, 00:00:00 Age 65 And Up Influenza Virus 2015-01-23 Completed Marilynn Se ybold - Vaccine, High Dose, 00:00:00 Exter nal Age 65 And Up Influenza Virus 2015-01-23 Completed Marilynn Se ybold - Vaccine, High Dose, 00:00:00 Exter nal Age 65 And Up Influenza Virus 2015-01-23 Completed Marilynn Se ybold - Vaccine, High Dose, 00:00:00 Exter nal Age 65 And Up Influenza Virus 2015-01-23 [...] Dose, 00:00:00 Age 65 And Up Influenza Split High 2015-01-23 Completed [facility] Dose Preservative [facility]:00 [facility] Influenza Virus 2013-02-23 Completed Marilynn Se ybold Vaccine, High Dose, 00:00:00 Age 65 And Up Influenza Virus 2013-02-23 Completed Marilynn Se ybold Vaccine, High Dose, 00:00:00 Age 65 And Up Influenza Virus 2013-02-23 Completed Marilynn Se ybold Vaccine, High Dose, 00:00:00 Age 65 And Up Influenza Virus 2013-02-23 Completed Marilynn Se ybold - Vaccine, High Dose, 00:00:00 Exter nal Age 65 And Up Influenza Virus 2013-02-23 Completed Marilynn Se ybold - Vaccine, High Dose, 00:00:00 Exter nal Age 65 And Up Influenza Virus 2013-02-23 Completed Marilynn Se ybold - Vaccine, High Dose, 00:00:00 Exter nal Age 65 And Up Influenza Virus 2013-02-23 Completed Marilynn Se ybold - Vaccine, High Dose, 00:00:00 Exter nal Age 65 And Up Influenza Virus 2013-02-23 Completed Marilynn Se ybold - Vaccine, High Dose, 00:00:00 Exter nal Age 65 And Up Influenza Virus 2013-02-23 Completed Marilynn Se ybold Vaccine, High Dose, 00:00:00 Age 65 And Up Influenza Virus 2013-02-23 Completed Marilynn Se ybold - Vaccine, High Dose, 00:00:00 Exter nal Age 65 And Up Influenza Virus 2013-02-23 Completed Marilynn Se ybold - Vaccine, High Dose, 00:00:00 Exter nal Age 65 And Up Influenza Virus 2013-02-23 Completed Marilynn Se ybold - Vaccine, High Dose, 00:00:00 Exter nal Age 65 And Up Influenza Virus 2013-02-23 Completed Marilynn Se ybold - Vaccine, High Dose, 00:00:00 Exter nal Age 65 And Up Influenza Virus 2013-02-23 Completed Marilynn Se ybold - Vaccine, High Dose, 00:00:00 Exter nal Age 65 And Up Influenza Virus 2013-02-23 Completed Marilynn Se ybold - Vaccine, High Dose, 00:00:00 Exter nal Age 65 And Up Influenza Virus 2013-02-23 Completed Marilynn Se ybold Vaccine, High Dose, 00:00:00 Age 65 And Up Influenza Virus 2013-02-23 Completed Marilynn Se ybold - Vaccine, High Dose, 00:00:00 Exter nal Age 65 And Up Influenza Virus 2013-02-23 Completed Marilynn Se ybold - Vaccine, High Dose, 00:00:00 Exter nal Age 65 And Up Influenza Virus 2013-02-23 Completed Marilynn Se ybold - Vaccine, High Dose, 00:00:00 Exter nal Age 65 And Up Influenza Virus 2013-02-23 [...] Dose, 00:00:00 Age 65 And Up Influenza Split High 2013-02-23 Completed [facility] Dose Preservative 00:00:00 [facility] Pneumococcal Vaccine, 2012-08-30 Completed Renate sey Seybold Polysaccharide 00:00:00 Pneumococcal Vaccine, 2012-08-30 Completed Renate sey Seybold Polysaccharide 00:00:00 Pneumococcal Vaccine, 2012-08-30 Completed Renate sey Seybold Polysaccharide 00:00:00 Pneumococcal Vaccine, 2012-08-30 Completed Renate sey Seybold - Polysaccharide 00:00:00 External Pneumococcal Vaccine, 2012-08-30 Completed Renate sey Seybold - Polysaccharide 00:00:00 External Pneumococcal Vaccine, 2012-08-30 Completed Renate sey Seybold - Polysaccharide 00:00:00 External Pneumococcal Vaccine, 2012-08-30 Completed Renate sey Seybold - Polysaccharide 00:00:00 External Pneumococcal Vaccine, 2012-08-30 Completed Renate sey Seybold - Polysaccharide 00:00:00 External Pneumococcal Vaccine, 2012-08-30 Completed Renate sey Seybold Polysaccharide 00:00:00 Pneumococcal Vaccine, 2012-08-30 Completed Renate sey Seybold - Polysaccharide 00:00:00 External Pneumococcal Vaccine, 2012-08-30 Completed Renate sey Seybold - Polysaccharide 00:00:00 External Pneumococcal Vaccine, 2012-08-30 Completed Renate sey Seybold - Polysaccharide 00:00:00 External Pneumococcal Vaccine, 2012-08-30 Completed Renate sey Seybold - Polysaccharide 00:00:00 External Pneumococcal Vaccine, 2012-08-30 Completed Renate sey Seybold - Polysaccharide 00:00:00 External Pneumococcal Vaccine, 2012-08-30 Completed Renate sey Seybold - Polysaccharide 00:00:00 External Pneumococcal Vaccine, 2012-08-30 Completed Renate sey Seybold Polysaccharide 00:00:00 Pneumococcal Vaccine, 2012-08-30 Completed Renate sey Seybold - Polysaccharide 00:00:00 External Pneumococcal Vaccine, 2012-08-30 Completed Renate sey Seybold - Polysaccharide 00:00:00 External Pneumococcal Vaccine, 2012-08-30 Completed Renate sey Seybold - Polysaccharide 00:00:00 External Pneumococcal Vaccine, 2012-08-30 Completed Renate sey Seybold [...] Completed Renate sey Seybold Polysaccharide 00:00:00 Pneumococcal 2012-08-30 Completed [facility] Polysaccharide 00:00:00 [place] MD [facility] Influenza Virus 2012-02-05 Completed Marilynn Se ybold Vaccine, age 6 months 00:00:00 and up Influenza Virus 2012-02-05 Completed Marilynn Se ybold Vaccine, age 6 months 00:00:00 and up Influenza Virus 2012-02-05 Completed Marilynn Se ybold Vaccine, age 6 months 00:00:00 and up Influenza Virus 2012-02-05 Completed Marilynn Se ybold - Vaccine, age 6 months 00:00:00 Ext ernal and up Influenza Virus 2012-02-05 Completed Marilynn Se ybold - Vaccine, age 6 months 00:00:00 Ext ernal and up Influenza Virus 2012-02-05 Completed Marilynn Se ybold - Vaccine, age 6 months 00:00:00 Ext ernal and up Influenza Virus 2012-02-05 Completed Marilynn Se ybold - Vaccine, age 6 months 00:00:00 Ext ernal and up Influenza Virus 2012-02-05 Completed Marilynn Se ybold - Vaccine, age 6 months 00:00:00 Ext ernal and up Influenza Virus 2012-02-05 Completed Marilynn Se ybold Vaccine, age 6 months 00:00:00 and up Influenza Virus 2012-02-05 Completed Marilynn Se ybold - Vaccine, age 6 months 00:00:00 Ext ernal and up Influenza Virus 2012-02-05 Completed Marilynn Se ybold - Vaccine, age 6 months 00:00:00 Ext ernal and up Influenza Virus 2012-02-05 Completed Marilynn Se ybold - Vaccine, age 6 months 00:00:00 Ext ernal and up Influenza Virus 2012-02-05 Completed Marilynn Se ybold - Vaccine, age 6 months 00:00:00 Ext ernal and up Influenza Virus 2012-02-05 Completed Marilynn Se ybold - Vaccine, age 6 months 00:00:00 Ext ernal and up Influenza Virus 2012-02-05 Completed Marilynn Se ybold - Vaccine, age 6 months 00:00:00 Ext ernal and up Influenza Virus 2012-02-05 Completed Marilynn Se ybold Vaccine, age 6 months 00:00:00 and up Influenza Virus 2012-02-05 Completed Marilynn Se ybold - Vaccine, age 6 months 00:00:00 Ext ernal and up Influenza Virus 2012-02-05 Completed Marilynn Se ybold - Vaccine, age 6 months 00:00:00 Ext ernal and up Influenza Virus 2012-02-05 Completed Marilynn Se ybold - Vaccine, age 6 months 00:00:00 Ext ernal and up Influenza Virus 2012-02-05 Completed Marilynn [...] Vaccine, age 6 months 00:00:00 and up Influenza, 2012-02-05 Completed [facility] Quad[facility]00 [facility] Influ[facility], 2012-02-05 Completed [facility] Quadrivalent 00:00:00 [facility] Influenza Virus 2011-02-27 Completed Marilynn Se ybold Vaccine, age 6 months 00:00:00 and up Influenza Virus 2011-02-27 Completed Marilynn Se ybold Vaccine, age 6 months 00:00:00 and up Influenza Virus 2011-02-27 Completed Marilynn Se ybold Vaccine, age 6 months 00:00:00 and up Influenza Virus 2011-02-27 Completed Marilynn Se ybold - Vaccine, age 6 months 00:00:00 Ext ernal and up Influenza Virus 2011-02-27 Completed Marilynn Se ybold - Vaccine, age 6 months 00:00:00 Ext ernal and up Influenza Virus 2011-02-27 Completed Marilynn Se ybold - Vaccine, age 6 months 00:00:00 Ext ernal and up Influenza Virus 2011-02-27 Completed Marilynn Se ybold - Vaccine, age 6 months 00:00:00 Ext ernal and up Influenza Virus 2011-02-27 Completed Marilynn Se ybold Vaccine, age 6 months 00:00:00 and up Influenza Virus 2011-02-27 Completed Marilynn Se ybold - Vaccine, age 6 months 00:00:00 Ext ernal and up Influenza Virus 2011-02-27 Completed Marilynn Se ybold - Vaccine, age 6 months 00:00:00 Ext ernal and up Influenza Virus 2011-02-27 Completed Marilynn Se ybold - Vaccine, age 6 months 00:00:00 Ext ernal and up Influenza Virus 2011-02-27 Completed Marilynn Se ybold - Vaccine, age 6 months 00:00:00 Ext ernal and up Influenza Virus 2011-02-27 Completed Marilynn Se ybold - Vaccine, age 6 months 00:00:00 Ext ernal and up Influenza Virus 2011-02-27 Completed Marilynn Se ybold - Vaccine, age 6 months 00:00:00 Ext ernal and up Influenza Virus 2011-02-27 Completed Marilynn Se ybold - Vaccine, age 6 months 00:00:00 Ext ernal and up Influenza Virus 2011-02-27 Completed Marilynn Se ybold Vaccine, age 6 months 00:00:00 and up Influenza Virus 2011-02-27 Completed Marilynn Se ybold - Vaccine, age 6 months 00:00:00 Ext ernal and up Influenza Virus 2011-02-27 Completed Marilynn Se ybold - Vaccine, age 6 months 00:00:00 Ext ernal and up Influenza Virus 2011-02-27 Completed Marilynn Se ybold - Vaccine, age 6 months 00:00:00 Ext ernal and up Influenza Virus 2011-02-27 Completed Marilynn [...] Vaccine, age 6 months 00:00:00 and up Influenza, 2011-02-27 Completed [facility] 00:[facility]00 [facility] Influenza, 2011-02-27 Completed [facility] Quad[facility]alent 00:00:00 [facility] Influenza Virus 2008-03-06 Completed Marilynn Se ybold Vaccine, age 6 months 00:00:00 and up Influenza Virus 2008-03-06 Completed Marilynn Se ybold Vaccine, age 6 months 00:00:00 and up Influenza Virus 2008-03-06 Completed Marilynn Se ybold Vaccine, age 6 months 00:00:00 and up Influenza Virus 2008-03-06 Completed Marilynn Se ybold - Vaccine, age 6 months 00:00:00 Ext ernal and up Influenza Virus 2008-03-06 Completed Marilynn Se ybold - Vaccine, age 6 months 00:00:00 Ext ernal and up Influenza Virus 2008-03-06 Completed Marilynn Se ybold - Vaccine, age 6 months 00:00:00 Ext ernal and up Influenza Virus 2008-03-06 Completed Marilynn Se ybold - Vaccine, age 6 months 00:00:00 Ext ernal and up Influenza Virus 2008-03-06 Completed Marilynn Se ybold Vaccine, age 6 months 00:00:00 and up Influenza Virus 2008-03-06 Completed Marilynn Se ybold - Vaccine, age 6 months 00:00:00 Ext ernal and up Influenza Virus 2008-03-06 Completed Marilynn Se ybold - Vaccine, age 6 months 00:00:00 Ext ernal and up Influenza Virus 2008-03-06 Completed Marilynn Se ybold - Vaccine, age 6 months 00:00:00 Ext ernal and up Influenza Virus 2008-03-06 Completed Marilynn Se ybold - Vaccine, age 6 months 00:00:00 Ext ernal and up Influenza Virus 2008-03-06 Completed Marilynn Se ybold - Vaccine, age 6 months 00:00:00 Ext ernal and up Influenza Virus 2008-03-06 Completed Marilynn Se ybold - Vaccine, age 6 months 00:00:00 Ext ernal and up Influenza Virus 2008-03-06 Completed Marilynn Se ybold - Vaccine, age 6 months 00:00:00 Ext ernal and up Influenza Virus 2008-03-06 Completed Marilynn Se ybold Vaccine, age 6 months 00:00:00 and up Influenza Virus 2008-03-06 Completed Marilynn Se ybold - Vaccine, age 6 months 00:00:00 Ext ernal and up Influenza Virus 2008-03-06 Completed Marilynn Se ybold - Vaccine, age 6 months 00:00:00 Ext ernal and up Influenza Virus 2008-03-06 Completed Marilynn Se ybold - Vaccine, age 6 months 00:00:00 Ext ernal and up Influenza Virus 2008-03-06 Completed Marilynn [...] Vaccine, age 6 months 00:00:00 and up Influenza, 2008-03-06 Completed [facility] 00:[facility]00 [facility] Influenza, 2008-03-06 Completed [facility] 00:00:00 [facility] Vital Signs Vital Name Observation Time Observation Value Comments Source Systolic blood 2022-06-09 160 mm[Hg] Marilynn Coyneybol d - pressure 16:19:00 External Diastolic blood 2022-06-09 76 mm[Hg] Marilynn Setacoso ld - pressure 16:19:00 External Heart rate 2022-06-09 88 /min Marilynnalvaro Snellold - :19:00 External Body temperature 2022-06-09 36.28 Saba Marilynnalvaro Snell old - :19: External Respiratory rate 2022-06-09 18 /min Marilynnalvaro Snell old - 16:19:00 External Body height 2022-06-09 170.2 cm Marilynn Setacosold - 16:19: External Body weight 2022-06-09 70.444 kg Marilynn Setacostiana - :19: External BMI 2022-06-09 24.32 kg/m2 Marilynnalvaro Snellold - :19:00 External Oxygen saturation 2022-06-09 95 /min Marilynn Alvaro bold - in Arterial blood 16:19:00 External by Pulse oximetry WEIGHT 2022-05-25 73.074 kg 02:49:00 WEIGHT 2022-05-23 70.988 kg 04:51:00 HEIGHT 2022-05-20 170.2 cm 15:17:00 WEIGHT 2022-05-20 70.6 kg 15:17:00 WEIGHT 2022-05-25 73.074 kg 02:49:00 WEIGHT 2022-05-23 70.988 kg 04:51:00 HEIGHT 2022-05-20 170.2 cm 15:17:00 WEIGHT 2022-05-20 70.6 kg 15:17:00 Systolic blood 2022-05-20 94 mm[Hg] Marilynn Seybol d - pressure 20:35:00 External Diastolic blood 2022-05-20 63 mm[Hg] Marilynn Seybo ld - pressure 20:35:00 External Heart rate 2022-05-20 163 /min Marilynn Seybold - 20:35:00 External Oxygen saturation 2022-05-20 100 /min Marilynn John bold - in Arterial blood 20:35:00 External by Pulse oximetry Respiratory rate 2022-05-20 20 /min Marilynn Seyb old - 19:27:00 External Body temperature 2022-05-20 36.44 Saba Marilynn Seyb old - 17:17:00 External Body height 2022-05-20 165.1 cm Marilynn Seybold - 17:17:00 External Body weight 2022-05-20 70.308 kg Marilynn Seybold - 17:17:00 External BMI 2022-05-20 25.79 kg/m2 Marilynn Seybold - 17:17:00 External Systolic blood 2022-05-13 129 mm[Hg] Marilynn Seybol d - pressure 17:00:00 External Diastolic blood 2022-05-13 75 mm[Hg] Marilynn Seybo ld - pressure 17:00:00 External Heart rate 2022-05-13 85 /min Marilynn Seybold - 17:00:00 External Body temperature 2022-05-13 37 Saba Marilynn Seyb old - 17:00:00 External Respiratory rate 2022-05-13 16 /min Marilynn Seyb old - 17:00:00 External Body height 2022-05-13 165.1 cm Marilynn Seybold - 17:00:00 External Body weight 2022-05-13 70.308 kg Marilynn Seybold - 17:00:00 External BMI 2022-05-13 25.79 kg/m2 Marilynn Seybold - 17:00:00 External Oxygen saturation 2022-05-13 94 /min Marilynn Coyney bold - in Arterial blood 17:00:00 External by Pulse oximetry Systolic blood 2022-05-05 124 mm[Hg] Marilynn Seybol d - pressure 17:27:00 External Diastolic blood 2022-05-05 60 mm[Hg] Marilynn Seybo ld - pressure 17:27:00 External Heart rate 2022-05-05 68 /min Marilynn Seybold - 17:27:00 External Body temperature 2022-05-05 36.78 Saba Marilynn Seyb old - 17:27:00 External Respiratory rate 2022-05-05 16 /min Marilynn Seyb old - 17:27:00 External Body height 2022-05-05 165.1 cm Marilynn Seybold - 17:27:00 External Body weight 2022-05-05 72.53 kg Marilynn Seybold - 17:27:00 External BMI 2022-05-05 26.61 kg/m2 Marilynn Seybold - 17:27:00 External Oxygen saturation 2022-05-05 96 /min Marilynn John bold - in Arterial blood 17:27:00 External by Pulse oximetry Systolic blood 2022-04-21 124 mm[Hg] Marilynn Seybol d - pressure 16:07:00 External Diastolic blood 2022-04-21 56 mm[Hg] Marilynn Seybo ld - pressure 16:07:00 External Heart rate 2022-04-21 100 /min Marilynn Seybold - 16:07:00 External Body temperature 2022-04-21 36.56 Saba Marilynn Seyb old - 16:07:00 External Respiratory rate 2022-04-21 22 /min Marilynn Seyb old - 16:07:00 External Body height 2022-04-21 167.5 cm measured w/o Marilynn Seybold - 16:07:00 shoes External Body weight 2022-04-21 72.576 kg w/o shoes Marilynn Seybold - 16:07:00 External BMI 2022-04-21 25.87 kg/m2 Marilynn Seybold - 16:07:00 External Oxygen saturation 2022-04-21 97 /min Marilynn Coyneioana bold - in Arterial blood 16:07:00 External by Pulse oximetry Systolic blood 2022-04-14 109 mm[Hg] Marilynn Seybol d - pressure 19:27:00 External Diastolic blood 2022-04-14 64 mm[Hg] Marilynn Seybo ld - pressure 19:27:00 External Heart rate 2022-04-14 91 /min Marilynn Coyneybold - 19:27:00 External Body temperature 2022-04-14 36.33 Saba Marilynn Coyneyb old - 19:27:00 External Respiratory rate 2022-04-14 16 /min Marilynn Coyneyb old - 19:27:00 External Body height 2022-04-14 167.6 cm Marilynn Coyneybold - 19:27:00 External Body weight 2022-04-14 72.349 kg Marilynn Coyneybold - 19:27:00 External BMI 2022-04-14 25.74 kg/m2 Marilynn Coyneybold - 19:27:00 External Oxygen saturation 2022-04-14 100 /min Marilynn Alvaro bold - in Arterial blood 19:27:00 External by Pulse oximetry Systolic blood 2022-03-24 113 mm[Hg] Marilynn Seybol d - pressure 17:32:00 External Diastolic blood 2022-03-24 68 mm[Hg] Marilynn Coyneybo ld - pressure 17:32:00 External Heart rate 2022-03-24 93 /min Marilynn Coyneybold - 17:32:00 External Body temperature 2022-03-24 36.67 Saba Marilynn Coyneyb old - 17:32:00 External Respiratory rate 2022-03-24 18 /min Marilynn Coyneyb old - 17:32:00 External Body height 2022-03-24 167.6 cm Marilynn Coyneybold - 17:32:00 External Body weight 2022-03-24 72.031 kg Marilynn Coyneybold - 17:32:00 External BMI 2022-03-24 25.63 kg/m2 Marilynn Coyneybold - 17:32:00 External Oxygen saturation 2022-03-24 96 /min Marilynn Alvaro bold - in Arterial blood 17:32:00 External by Pulse oximetry Systolic blood 2022-02-24 113 mm[Hg] Marilynn Seybol d - pressure 16:10:00 External Diastolic blood 2022-02-24 64 mm[Hg] Marilynn Seybo ld - pressure 16:10:00 External Heart rate 2022-02-24 85 /min Marilynn Coyneybold - 16:10:00 External Body temperature 2022-02-24 36.44 Saba Marilynn Snell old - 16:10:00 External Respiratory rate 2022-02-24 17 /min Marilynn Coyneyb old - 16:10:00 External Body height 2022-02-24 167.6 cm Marilynn Coyneybold - 16:10:00 External Body weight 2022-02-24 72.757 kg Marilynn Coyneybold - 16:10:00 External BMI 2022-02-24 25.89 kg/m2 Marilynn Coyneybold - 16:10:00 External Oxygen saturation 2022-02-24 97 /min Marilynn y bold - in Arterial blood 16:10:00 External by Pulse oximetry Systolic blood 2022-02-07 103 mm[Hg] Marilynn Seybol d - pressure 20:57:00 External Diastolic blood 2022-02-07 65 mm[Hg] Marilynn Coyneybo ld - pressure 20:57:00 External Heart rate 2022-02-07 100 /min Marilynn Coyneybold - 20:57:00 External Body temperature 2022-02-07 36.39 Saba Marilynn Snell old - 20:57:00 External Respiratory rate 2022-02-07 17 /min Marilynn Snell old - 20:57:00 External Body height 2022-02-07 167.6 cm Marilynn Coyneybold - 20:57:00 External Body weight 2022-02-07 70.308 kg Marilynn Coyneybold - 20:57:00 External BMI 2022-02-07 25.02 kg/m2 Marilynn Coyneybold - 20:57:00 External Oxygen saturation 2022-02-07 95 /min Marilynn Coyney bold - in Arterial blood 20:57:00 External by Pulse oximetry Systolic blood 2022-02-06 109 mm[Hg] Marilynn Seybol d - pressure 19:50:00 External Diastolic blood 2022-02-06 68 mm[Hg] Marilynn Seybo ld - pressure 19:50:00 External Heart rate 2022-02-06 84 /min Marilynn Coyneybold - 19:50:00 External Body temperature 2022-02-06 36 Saba Marilynn Snell old - 19:50:00 External Respiratory rate 2022-02-06 18 /min Marilynn Snell old - 19:50:00 External Body height 2022-02-06 167.6 cm Marilynn Coyneybold - 19:50:00 External Body weight 2022-02-06 70.308 kg Patient refused Marilynn john ld - 19:50:00 weight , External previous weight recorded BMI 2022-02-06 25.02 kg/m2 Marilynn Coyneybold - 19:50:00 External Oxygen saturation 2022-02-06 98 /min Marilynn Coyneioana bold - in Arterial blood 19:50:00 External by Pulse oximetry Body height 2021-09-10 167.6 cm Marilynn Coyneybtiana 18:01:00 Body weight 2021-09-10 69.854 kg Marilynn Coyneybold 18:01:00 BMI 2021-09-10 24.86 kg/m2 Marilynn Seybold 18:01:00 Systolic blood 2021-08-14 126 mm[Hg] Marilynn Seybol d pressure 17:56:00 Diastolic blood 2021-08-14 72 mm[Hg] Marilynn Snello ld pressure 17:56:00 Heart rate 2021-08-14 68 /min Marilynn Seybold 17:56:00 Body temperature 2021-08-14 37 Saba Marilynn Snell old 17:56:00 Respiratory rate 2021-08-14 16 /min Marilynn Setacos old 17:56:00 Body height 2021-08-14 170.2 cm Marilynn Seybold 17:56:00 Body weight 2021-08-14 69.31 kg Mairlynn Seybold 17:56:00 BMI 2021-08-14 23.93 kg/m2 Marilynn Seybold 17:56:00 Body height 2021-08-13 170.2 cm Marilynn Seybold 15:58:00 Body weight 2021-08-13 66.679 kg Marilynn Seybold 15:58:00 BMI 2021-08-13 23.02 kg/m2 Marilynn Seybold 15:58:00 Systolic blood 2021-06-24 144 mm[Hg] Marilynn Seybol d pressure 15:35:00 Diastolic blood 2021-06-24 78 mm[Hg] Marilynn Seybo ld pressure 15:35:00 Heart rate 2021-06-24 68 /min Marilynn Seybold 15:35:00 Respiratory rate 2021-06-24 12 /min Marilynn Seyb old 15:35:00 Body height 2021-06-24 167.6 cm Marilynn Seybold 15:35:00 Body weight 2021-06-24 66.679 kg Marilynn Seybold 15:35:00 BMI 2021-06-24 23.73 kg/m2 Marilynn Seybold 15:35:00 Body height 2021-06-03 167.6 cm Marilynn Seybold 15:54:00 Systolic blood 2021-04-22 126 mm[Hg] Marilynn Seybol d pressure 14:35:00 Diastolic blood 2021-04-22 70 mm[Hg] Marilynn Seybo ld pressure 14:35:00 Heart rate 2021-04-22 68 /min Marilynn Seybold 14:35:00 Body temperature 2021-04-22 36.56 Saba Marilynn Coyneyb old 14:35:00 Respiratory rate 2021-04-22 16 /min Marilynn Seyb old 14:35:00 Body weight 2021-04-22 67.132 kg Marilynn Seybold 14:35:00 BMI 2021-04-22 23.18 kg/m2 Marilynn Seybold 14:35:00 Oxygen saturation 2021-04-22 99 /min Marilynn John master in Arterial blood 14:35:00 by Pulse oximetry Systolic blood 2021-03-08 110 mm[Hg] Marilynn Seybol d pressure 16:18:00 Diastolic blood 2021-03-08 60 mm[Hg] Marilynn Seybo ld pressure 16:18:00 Heart rate 2021-03-08 84 /min Marilynn Seybold 16:18:00 Body temperature 2021-03-08 36.78 Saba Marilynn Coyneyb old 16:18:00 Respiratory rate 2021-03-08 18 /min Marilynn Coyneyb old 16:18:00 Body height 2021-03-08 170.2 cm Marilynn Seybold 16:18:00 Body weight 2021-03-08 66.679 kg Marilynn Seybold 16:18:00 BMI 2021-03-08 23.02 kg/m2 Marilynn Seybold 16:18:00 Systolic blood 2021-03-01 124 mm[Hg] Marilynn Seybol d pressure 15:51:00 Diastolic blood 2021-03-01 72 mm[Hg] Marilynn Seybo ld pressure 15:51:00 Heart rate 2021-03-01 84 /min Marilynn Seybold 15:51:00 Body temperature 2021-03-01 37.06 Saba Marilynn Seyb old 15:51:00 Respiratory rate 2021-03-01 16 /min Marilynn Seyb old 15:51:00 Body height 2021-03-01 170.2 cm Marilynn Seybold 15:51:00 Body weight 2021-03-01 66.679 kg Marilynn Seybold 15:51:00 BMI 2021-03-01 23.02 kg/m2 Marilynn Seybold 15:51:00 Body height 2021-03-01 170.2 cm Marilynn Seybold 14:55:00 Body weight 2021-03-01 66.679 kg Marilynn Seybold 14:55:00 BMI 2021-03-01 23.02 kg/m2 Marilynn Seybold 14:55:00 HEIGHT 2021-02-25 170.2 cm 10:10:00 WEIGHT 2021-02-25 66.7 kg 10:10:00 HEIGHT 2021-02-22 170.2 cm 11:50:00 WEIGHT 2021-02-22 65.318 kg 11:50:00 HEIGHT 2021-02-25 170.2 cm 10:10:00 WEIGHT 2021-02-25 66.7 kg 10:10:00 HEIGHT 2021-02-22 170.2 cm 11:50:00 WEIGHT 2021-02-22 65.318 kg 11:50:00 Systolic blood 2021-02-19 129 mm[Hg] Marilynn Seybol d pressure 15:08:00 Diastolic blood 2021-02-19 89 mm[Hg] Marilynn Seybo ld pressure 15:08:00 Heart rate 2021-02-19 72 /min Marilynn Seybold 15:08:00 Body temperature 2021-02-19 36.89 Saba Marilynn Seyb old 15:08:00 Respiratory rate 2021-02-19 18 /min Marilynn Snell old 15:08:00 Body height 2021-02-19 168.7 cm Marilynn Matta 15:08:00 Body weight 2021-02-19 65.998 kg Marilynn Matta 15:08:00 BMI 2021-02-19 23.20 kg/m2 Marilynn Matta 15:08:00 Oxygen saturation 2021-02-19 99 /min Marilynn thao in Arterial blood 15:08:00 by Pulse oximetry Body height 2021-02-13 168.7 cm Marilynn Matta 19:04:00 Body weight 2021-02-13 66.225 kg Marilynn Matta 19:04:00 BMI 2021-02-13 23.28 kg/m2 Marilynn Matta 19:04:00 HEIGHT 2020-07-17 170.2 cm 00:09:00 WEIGHT 2020-07-17 74.299 kg 00:09:00 HEIGHT 2020-07-17 170.2 cm 00:09:00 WEIGHT 2020-07-17 74.299 kg 00:09:00 Systolic blood 2022-03-12 117 mm[Hg] [facility] pressure 18:32:58 [facility] Diastolic blood 2022-03-12 66 mm[Hg] [facility] pressure 18:32:58 [facility] Heart rate 2022-03-12 100 /min [facility] 18:32:58 [facility] Body temperature 2022-03-12 36.89 Saba [facility] 18:32:58 [facility] Respiratory rate 2022-03-12 16 /min [facility] 18:32:58 [facility] Oxygen saturation 2022-03-12 96 /min [facility] in Arterial blood 18:32:58 [facility] by Pulse oximetry [facility] Body weight 2022-03-12 71.5 kg [facility] 18:15:00 [facility] BMI 2022-03-12 25.33 kg/m2 [facility] 18:15:00 [facility] Body height 2021-10-02 168 cm University 18:28:00 [facility] Systolic blood 2021-02-26 148 mm[Hg] [facility] pressure 11:33:00 [facility] Center Diastolic blood 2021-02-26 79 mm[Hg] [facility] pressure 11:33:00 [facility] Center Heart rate 2021-02-26 86 /min [facility] 11:33:00 [facility] Body temperature 2021-02-[address] [facility] 11:[facility] Respiratory rate 2021-02-26 18 /min [facility] 11:33:[facility] Oxygen saturation 2021-02-26 100 /min [facility] Arterial blood 11:33:00 [facility] Ce [facility] by Pulse oximetry Body height 2021-02-[address] [facility] 10:10:00 [facility] Body weight 2021-02-[address] [facility] 10:10:00 [facility] BMI 2021-02-25 23.03 kg/m2 [facility] 10:10:00 [facility] Systolic blood 2020-07-18 120 mm[Hg] [facility] pressure 07:37:00 [facility] Center Diastolic blood 2020-07-18 57 mm[Hg] [facility] pressure 07:37:00 [facility] Heart rate 2020-07-18 81 /min [facility] 07:37[facility]00 [facility] Body temperature 2020-07-[address] [facility] 07:37[facility]00 [facility] Respiratory rate 2020-07-18 18 /min [facility] 07:37:00 [facility] Oxygen saturation 2020-07-18 99 /min [facility] Arterial blood 07:37:00 Medical Ce nter by Pulse oximetry Body height 2020-07-[address] [facility] 00:09:00 [facility] Body weight 2020-07-[address] [facility] 00:09:00 [facility] BMI 2020-07-17 25.65 kg/m2 [facility] 00:09[facility]00 [facility] Systolic blood 2020-04-30 160 mm[Hg] [facility] pressure 10:59:00 Diastolic blood 2020-04-30 97 mm[Hg] [facility] pressure 10:59:00 Body height 2020-04-30 67 [in_us] [facility] 10:59:00 Weight 2020-04-30 170 [lb_av] [facility] 10:59:00 Body mass index 2020-04-30 26.63 kg/m2 [facility] (BMI) [Ratio] 10:59:00 Body temperature 2020-04-30 97.5 [degF] [facility] 10:59:00 Heart Rate 2020-04-30 69 /min [facility] 10:59:00 Procedures Procedure Date / Time Performing Clinician Source Performed CBC WITH DIFFERENTIAL 2022-06-09 16:45:00 Justin Samuel Seybold - External MAGNESIUM 2022-06-09 16:45:00 Justin Samuel Seybo ld - External COMP. METABOLIC PANEL 2022-05-20 19:46:00 Monalisa Holdenold - (14) External CBC WITH DIFFERENTIAL 2022-05-20 16:59:00 Justin Samuel Seybold - External CBC WITH DIFFERENTIAL 2022-05-13 17:13:00 Justin Samuel Seybold - External TISSUE SLIDES MATERIAL 2022-05-06 15:15:19 [facility] WITH DIFFERENTIAL 2022-05-05 17:27:00 Justin Samuel Seybold - External MANUAL DIFFERENTIAL 2022-05-05 17:27:00 Justin Samuel eybold - External QUANTAFLO 2022-04-21 16:19:16 Karly Hamlin eybold - [place] External CBC WITH 2022-04-14 19:16:00 Justin Samuel Seybo ld - DIFFERENTIAL/PLATELET External COMP. METABOLIC PANEL 2022-04-14 19:16:00 Justin Samuel Seybold - (14) External CBC WITH 2022-03-24 17:22:00 Justin Samuel Seybo ld - DIFFERENTIAL/PLATELET External COMP. METABOLIC PANEL 2022-03-24 17:22:00 Justin Samuel Seybold - (14) External CBC WITH 2022-02-24 16:26:00 Justin Samuel Seybo ld - DIFFERENTIAL/PLATELET External COMP. METABOLIC PANEL 2022-02-24 16:26:00 Justin Samuel - (14) External OSI PET CT SKULL TO MID 2022-02-19 02:11:00 Joann Eubanks [facility] OSI PET CT SKULL TO MID 2022-01-11 02:10:00 Joann Eubanks [facility] [place] LARYNGOSCOPY FLEXIBLE 2021-10-03 16:00:39 Juancarlos Schrader [facility] DIAGNOSTIC [facility] COVID-19 (SARS-COV-2) 2021-10-01 16:34:00 Joann Eubanks [facility] PCR ASYMPTOMATIC [facility] OSI CT SFT TISS NECK 2021-09-07 04:49:00 [facility] SKULL TO MID 2021-09-03 04:49:00 Joann Eubanks [facility] [place] CALCIUM 2021-02-26 04:10:00 Mellissa Carrasco [facility] Eliecer [place] PTH, INTACT 2021-02-25 18:11:00 [facility] [place] CALCIUM 2021-02-25 18:11:[address] [facility] Eliecer [place] TISSUE EXAM 2021-02-25 15:01:[address] [facility] Eliecer [place] ABORH, MANUAL 2021-02-25 13:25:[address] [facility] ANTIBODY SCREEN 2021-02-25 13:25:[address] [facility] DISSECTION,NECK 2021-02-25 12:12:[address] [facility] SELECTIVE Eliecer Center PREPARE LEUKO-REDUCED 2020-07-18 23:54:00 Alf Vazquez [facility] RBC Center HEMOGLOBIN AND 2020-07-18 03:59:00 Alf Vazquez [facility] HEMATOCRIT Center BASIC METABOLIC PANEL 2020-07-18 03:59:00 Alf Vazquez [facility] (7) Center PREPARE LEUKO-REDUCED 2020-07-17 23:54:00 Mckenna Olguin [facility] Center REPORT OF PROCEDURE - 2020-07-17 15:10:40 Ramiro Up [facility] Hospital ENDOSCOPY URL Center TISSUE EXAM 2020-07-17 14:49:00 Ramiro Up [facility] UPPER ENDOSCOPY 2020-07-17 14:26:00 Ramiro Up [facility] BASIC METABOLIC PANEL 2020-07-17 12:37:00 [facility] [place] CBC W/PLT COUNT & AUTO 2020-07-17 06:17:00 Sunil [facility] DIFFERENTIAL Linda [place] BASIC METABOLIC PANEL 2020-07-17 06:17:00 [facility] () [facility] Center MAGNESIUM 2020-07-17 06:17:00 [facility] W/PLT COUNT & AUTO 2020-07-17 06:17:00 [facility] DIFFERENTIAL [facility] TRANSFUSE LEUKO-REDUCED 2020-07-17 02:40:00 Alf Vazquez [facility] RED BLOOD CELLS [place] TRANSFUSE LEUKO-REDUCED 2020-07-17 00:02:00 Alf Vazquez [facility] RED BLOOD CELLS [place] SARS-COV2/RT-PCR ([facility] & 2020-07-16 18:04:00 Mckenna Olguin I [facility] REF LABS) Center TRANSFUSE LEUKO-REDUCED 2020-07-16 17:55:00 Mckenna Olguin [facility] RED BLOOD CELLS Center B-TYPE NATRIURETIC 2020-07-16 17:52:00 Alf Vazquez Rickie [facility] FACTOR (BNP) Center IRON, TIBC, % SAT. 2020-07-16 17:51:00 Alf Vazquez [facility] (WITHOUT FERRITIN) Center FERRITIN 2020-07-16 17:51:00 Alf VazquezRickie [facility] ECG 12-LEAD 2020-07-16 17:06:22 Unknown, Hl7 Doctor [facility] ECG 12-LEAD 2020-07-16 17:06:22 Unknown, Hl7 [facility] ECG 12-LEAD 2020-07-16 17:05:57 Unknown, Hl7 [facility] ECG 12-LEAD 2020-07-16 17:05:57 Unknown, Hl7 [facility] XR CHEST 1 VIEW PORTABLE 2020-07-16 16:40:00 Mckenna Olguin [facility] / BEDSIDE Center ABORH, MANUAL 2020-07-16 16:29:00 Aparna Campa [facility] CBC W/PLT COUNT & AUTO 2020-07-16 15:55:00 [facility] Center COMPREHENSIVE METABOLIC 2020-07-16 15:55:00 [facility] PANEL Center PROTHROMBIN TIME/INR 2020-07-16 15:55:00 [facility] 2020-07-16 15:55:00 Mckenna Olguin [facility] TYPE AND SCREEN, 2020-07-16 15:55:00 Mckenna Olguin [facility] AUTOMATED Center CBC W/PLT COUNT & AUTO 2020-07-16 15:55:00 Sharif [facility] DIFFERENTIAL Center REPORT OF PROCEDURE - 2020-07-16 00:00:00 ProviderCarmina [facility] ENDOSCOPY SCAN Scanning Center Plan of Care Planned Activity Planned Date Details Comments Source Future Scheduled 2026-12-26 DTAP/TDAP/TD VACCINES I [facility] Test 00:00:00 (2 - Td or Tdap) Medical I[facility] [code = DTAP/TDAP/TD VACCINES (2 - Td or Tdap)] Future Scheduled 2026-12-26 DTAP/TDAP/TD VACCINES CH I [facility] Test 00:00:00 (2 - Td or Tdap) Medical [facility] [code = DTAP/TDAP/TD VACCINES (2 - Td or Tdap)] Future Scheduled 2026-12-26 DTAP/TDAP/TD [facility]ACCINES [facility] (2 - Td or Tdap) Medical Irena [facility] [code = DTAP/TDAP/TD VACCINES (2 - Td or Tdap)] Future Scheduled 2026-12-26 DTAP/TDAP/TD VACCINES [facility] Test 00:00:00 (2 - Td or Tdap) Medical Irena [facility] [code = DTAP/TDAP/TD VACCINES (2 - Td or Tdap)] Future Scheduled 2026-12-26 DTAP/TDAP/TD VACCINES [facility] Test 00:00:00 (2 - Td or Tdap) Medical I[facility] [code = DTAP/TDAP/TD VACCINES (2 - Td or Tdap)] Future Scheduled 2021-01-[address] [facility] Test 00:00:00 (#1) [code = Medical Center INFLUENZA VACCINE (#1)] Future Scheduled 2021-01-[address] [facility] Test 00:00:00 (#1) [code = Medical Center INFLUENZA VACCINE (#1)] Future Scheduled 2021-01-[address] [facility] Test 00:00:00 (#1) [code = Medical Center INFLUENZA VACCINE (#1)] Future Scheduled 2021-01-[address] [facility] Test 00:00:00 (#1) [code = Medical Center INFLUENZA VACCINE (#1)] Future Scheduled 2020-12-08 Screening for [facility] Col lege of Test 09:58:54 malignant neoplasm of Medici ne colon (procedure) [code = 453973764] Future Scheduled 2020-12-08 Hepatitis C screening [facility] of Test 09:58:54 (procedure) [code = Medicine [id number]] Future Scheduled 2020-12-08 ZOSTER VACCINE (1 of [facility] of Test 09:58:54 2) [code = ZOSTER Medicine VACCINE (1 of 2)] Future Scheduled 2020-12-08 FALL SCREEN [code = [facility] of Test 09:58:54 FALL SCREEN] Medicine Future Scheduled 2020-12-08 MEDICARE AWV [facility] Isai ege of Test 09:58:54 (Initial) [code = Medicine MEDICARE AWV (Initial)] Future Scheduled 2020-12-08 FLU VACCINE > 6 [facility] of Test 09:58:54 MONTHS [code = FLU Medicine VACCINE > 6 MONTHS] Future Scheduled 2020-12-08 TETANUS SHOT (ADULT) [facility] of Test 09:58:54 [code = TETANUS SHOT Medicin e (ADULT)] Future Scheduled 2016-02-21 SHINGLES VACCINES ([address] [facility] Test 00:00:00 of 3) [code = Medical Center SHINGLES VACCINES (2 of 3)] Future Scheduled 2016-02-21 SHINGLES VACCINES ([address] [facility] Test 00:00:00 of 3) [code = Medical Center SHINGLES VACCINES (2 of 3)] Future Scheduled 2016-02-21 SHINGLES VACCINES ([address] [facility] Test 00:00:00 of 3) [code = Medical Center SHINGLES VACCINES (2 of 3)] Future Scheduled 2016-02-21 SHINGLES VACCINES ([address] [facility] Test 00:00:00 of 3) [code = Medical Center SHINGLES VACCINES (2 of 3)] Future Scheduled 2016-02-21 SHINGLES VACCINES ([address] [facility] Test 00:00:00 of 3) [code = Medical Center SHINGLES VACCINES (2 of 3)] Future Scheduled 2015-05-[address] [facility] Test 00:00:00 WELLNESS (YEAR 2 or Medical Center FIRST YEAR if no IPPE) [code = MEDICARE ANNUAL WELLNESS (YEAR 2 or FIRST YEAR if no IPPE)] Future Scheduled 2015-05-[address] [facility] [facility] Test 00:00:00 WELLNESS (YEAR 2 or Medical Center FIRST YEAR if no IPPE) [code = MEDICARE ANNUAL WELLNESS (YEAR 2 or FIRST YEAR if no IPPE)] Future Scheduled 2015-05-[address] [facility] [facility] Test 00:00:00 WELLNESS (YEAR 2 or Medical Center FIRST YEAR if no IPPE) [code = MEDICARE ANNUAL WELLNESS (YEAR 2 or FIRST YEAR if no IPPE)] Future Scheduled 2015-05-[address] [facility] Test 00:00:00 WELLNESS (YEAR 2 or Medical Center FIRST YEAR if no IPPE) [code = MEDICARE ANNUAL WELLNESS (YEAR 2 or FIRST YEAR if no IPPE)] Future Scheduled 2015-05-[address] [facility] Test 00:00:00 WELLNESS (YEAR 2 or Medical Center FIRST YEAR if no IPPE) [code = MEDICARE ANNUAL WELLNESS (YEAR 2 or FIRST YEAR if no IPPE)] Future Scheduled 1965-08-09 HEPATITIS C [facility]CRE[facility]ING [facility] [code = HEPATITIS C Medical Center SCREENING] Future Scheduled 1965-08-09 HEPATITIS C [facility]CRE[facility]ING [facility] Test 00:00:00 [code = HEPATITIS C Medical Center SCREENING] Future Scheduled 1965-08-09 HEPATITIS C SCREENING [facility] Test 00:00:00 [code = HEPATITIS C Medical Center SCREENING] Future Scheduled 1965-08-09 HEPATITIS C [facility]CREENING [facility] Test 00:00:00 [code = HEPATITIS C Medical Center SCREENING] Future Scheduled 1965-08-09 HEPATITIS C [facility]CRE[facility]ING [facility] Test 00:00:00 [code = HEPATITIS C Medical Center SCREENING] Future Scheduled 1959 COVID-19 VACCINE (1) [facility] Test 00:00:00 [code = COVID-[address] VACCINE (1)] Future Scheduled 1959 COVID-19 VACCINE (1) [facility] Test 00:00:00 [code = COVID-[address] VACCINE (1)] Future Scheduled 1959 COVID-19 VACCINE (1) [facility] Test 00:00:00 [code = COVID-[address] VACCINE (1)] Future Scheduled 1959 COVID-19 VACCINE (1) [facility] Test 00:00:00 [code = COVID-[address] VACCINE (1)] Future Scheduled [address] [facility] Test 00:00:00 malignant neoplasm of Medica l Center colon (procedure) [code = 770980157] Future Scheduled [address] [facility] Test 00:00:00 malignant neoplasm of Medica l Center colon (procedure) [code = 163948324] Future Scheduled [address] [facility] Test 00:00:00 malignant neoplasm of Medica l Center colon (procedure) [code = 442957492] Future Scheduled [address] [facility] Test 00:00:00 malignant neoplasm of Medica l Center colon (procedure) [code = 130302868] Future Scheduled [address] [facility] [facility] Test 00:00:00 malignant neoplasm of Medica l Center colon (procedure) [code = 092044353] Future Scheduled ZOSTER VACCINE (1 of [facility] College of Test 2) [code = ZOSTER Medicine VACCINE (1 of 2)] Future Scheduled FALL SCREEN [code = [facility] of Test FALL SCREEN] Medicine Future Scheduled MEDICARE AWV [facility] Isai ege of Test (Initial) [code = Medicine MEDICARE AWV (Initial)] Future Scheduled FLU VACCINE > 6 [facility] C ollege of Test MONTHS [code = FLU Medicine VACCINE > 6 MONTHS] Future Scheduled TETANUS SHOT (ADULT) [facility] of Test [code = TETANUS SHOT Medicin e (ADULT)] Future Scheduled COLON CANCER [facility] ege of Test SCREENING: Medicine COLONOSCOPY [code = COLON CANCER SCREENING: COLONOSCOPY] Future Scheduled COVID-19 Vaccine [facility] of Test Evaluation [code = Medicine COVID-19 Vaccine Evaluation] Future Scheduled HEPATITIS C SCREENING [facility] of Test [code = HEPATITIS C Medicine SCREENING] Future Scheduled ZOSTER VACCINE (1 of [facility] of Test 2) [code = ZOSTER Medicine VACCINE (1 of 2)] Future Scheduled FALL SCREEN [code = [facility] of Test FALL SCREEN] Medicine Future Scheduled MEDICARE AWV [facility] Isai ege of Test (Initial) [code = Medicine MEDICARE AWV (Initial)] Future Scheduled FLU VACCINE > 6 [facility] C ollege of Test MONTHS [code = FLU Medicine VACCINE > 6 MONTHS] Future Scheduled TETANUS SHOT (ADULT) [facility] of Test [code = TETANUS SHOT Medicin e (ADULT)] Future Scheduled Screening for [facility] Col lege of Test malignant neoplasm of Medici ne colon (procedure) [code = 953360820] Future Scheduled COVID-19 Vaccine (1) [facility] of Test [code = COVID-19 Medicine Vaccine (1)] Future Scheduled Hepatitis C screening [facility] of Test (procedure) [code = Medicine 342853241] Future Scheduled ZOSTER VACCINE (1 of [facility] of Test 2) [code = ZOSTER Medicine VACCINE (1 of 2)] Future Scheduled FALL SCREEN [code = [facility] of Test FALL SCREEN] Medicine Future Scheduled MEDICARE AWV [facility] Isai ege of Test (Initial) [code = Medicine MEDICARE AWV (Initial)] Future Scheduled FLU VACCINE > 6 [facility] C ollege of Test MONTHS [code = FLU Medicine VACCINE > 6 MONTHS] Future Scheduled TETANUS SHOT (ADULT) [facility] Test [code = TETANUS SHOT Medicin e (ADULT)] Future Scheduled COLON CANCER [facility] ege of Test SCREENING: Medicine COLONOSCOPY [code = COLON CANCER SCREENING: COLONOSCOPY] Future Scheduled COVID-19 Vaccine [facility] Test Evaluation [code = Medicine COVID-19 Vaccine Evaluation] Future Scheduled HEPATITIS C SCREENING [facility] Test [code = HEPATITIS C Medicine SCREENING] Encounters Start End Encounter Admission Attending Care Care Encounter Source Date/Time Date/Time Type Type Clinicians Facility Department ID 2022-03-10 Outpatient SYSTEM, [facility] [id number] 11:11:45 PROVIDER Adam o n 2022-07-07 2022-07-07 Outpatient MARILYNN SAMUEL [id number] [place] 15:20:00 15:20:00 KANZA Seybol d 2022-07-02 2022-07-02 Outpatient HOLLI, MARILYNN CARDENAS [id number] [place] 13:00:00 13:00:00 ALOK Seybol d 2022-06-30 2022-06-30 Outpatient INFUSION, MARILYNN CARDENAS [id number] [place] 14:30:00 14:30:00 MC Seybol d 2022-06-23 2022-06-23 Outpatient INFUSION, MARILYNN CARDENAS [id number] [place] 10:30:00 10:30:00 MC Seybol d 2022-06-16 2022-06-16 Outpatient INFUSION, MARILYNN CARDENAS [id number] [place] 09:00:00 09:00:00 MC Seybol d 2022-06-16 2022-06-16 Outpatient MARILYNN SAMUEL [id number] [place] 08:00:00 08:00:00 KANZA Seybol d 2022-06-09 2022-06-09 Outpatient INFUSION, MARILYNN CARDENAS [id number] [place] 10:30:00 10:30:00 MC Seybol d 2022-06-09 2022-06-09 Outpatient DAMIAN YU [id number] [place]air[place]nn 00:00:00 00:00:00 Seybol d 2022-06-09 2022-06-09 Outpatient DAVID JOHNSTON [id number] [place] 00:00:00 00:00:00 Seybol d 2022-06-06 2022-06-06 Outpatient APURVAMARILYNN [id number] [place] 14:55:00 14:55:00 JACQUES Seybol d 2022-06-05 2022-06-05 Outpatient MARILYNN SAMUEL [id number] [place] 00:00:00 00:00:00 KANZA Seybol d 2022-06-05 2022-06-05 Outpatient MARILYNN SAMUEL [id number] [place] 00:00:00 00:00:00 KANZA Seybol d 2022-06-03 2022-06-03 Outpatient FILOMENAMARILYNN [id number] [place] 00:00:00 00:00:00 JANEL Seyb old 2022-06-02 2022-06-02 Outpatient INFUSION, MARILYNN CARDENAS [id number] [place] 11:30:00 11:30:00 MC Seybol d 2022-06-02 2022-06-02 Outpatient MANTMARILYNN COOPER [id number] [place] 00:00:00 00:00:00 FRANCESCA Seybol d 2022-05-30 2022-05-30 Outpatient MARILYNN CARDENAS [id number] [place] 00:00:00 00:00:00 Seybol d 2022-05-29 2022-05-29 Outpatient JAVI, ALEX CARDENAS [id number] [place] 00:00:00 00:00:00 Seybol d 2022-05-28 2022-05-28 Outpatient VICKIE, EGING MARILYNN CARDENAS [id number] [place] 00:00:00 00:00:00 Seybol d 2022-05-27 2022-05-27 Outpatient MANTMARILYNN COOPER [id number] [place] 00:00:00 00:00:00 FRANCESCA Seybol d 2022-05-27 2022-05-27 Outpatient MARILYNN SAMUEL [id number] [place] 00:00:00 00:00:00 KANZA Seybol d 2022-05-20 2022-05-26 Inpatient ER JAVI, ALEX [facility] 20 [id number] [facility] 15:59:00 14:33:00 2022-05-26 2022-05-26 Outpatient ABBRENATE RICHARDSONALVARO CARDENAS [id number] [place] 12:00:00 12:00:00 KANZA Seybol d 2022-05-26 2022-05-26 Outpatient INFUSION, MARILYNN CARDENAS [id number] [place] 11:30:00 11:30:00 MC Seybol d 2022-05-26 2022-05-26 Outpatient INFUSION, MARILYNN CARDENAS [id number] [place] 11:30:00 11:30:00 MC Seybol d 2022-05-26 2022-05-26 Outpatient INFUSION, MARILYNN CARDENAS [id number] [place] 11:00:00 11:00:00 MC Seybol d 2022-05-26 2022-05-26 Outpatient LE, DAMIAN MARILYNN CARDENAS [id number] [place] 00:00:00 00:00:00 Seybol d 2022-05-26 2022-05-26 Outpatient MARILYNN CARDENAS [id number] [place] 00:00:00 00:00:00 Seybol d 2022-05-26 2022-05-26 Outpatient LE, DAMIAN MARILYNN CARDENAS [id number] [place] 00:00:00 00:00:00 Seybol d 2022-05-23 2022-05-23 Outpatient LE, DAMIAN CARDENAS [id number] [place] 00:00:00 00:00:00 Seybol d 2022-05-22 2022-05-22 Outpatient JAVIALEX MARILYNN CARDENAS [id number] [place] 00:00:00 00:00:00 Seybol d 2022-05-22 2022-05-22 Documentat Jensen, 1.2.840.1 [id number] [facility] 00:00:00 00:00:00 ion Troy T 75529.1.1 ity of 3.412.2.7 [facility]3.259565 MD Damian8 [facility] 2022-05-21 2022-05-21 Outpatient LE, DAMIAN CARDENAS [id number] [place] 00:00:00 00:00:00 Seybol d 2022-05-21 2022-05-21 Outpatient MARILYNN CARDENAS [id number] [place] 00:00:00 00:00:00 Seybol d 2022-05-21 2022-05-21 Outpatient ODALYSMARILYNN [id number] [place] 00:00:00 00:00:00 SHELLEY Seybol d 2022-05-20 2022-05-20 Outpatient [facility] [id number] [facility] 00:00:00 23:59:00 [facility] Medicin e 2022-05-20 2022-05-20 Outpatient MARILYNN JUÁREZ [id number] [place] 14:40:00 14:40:00 KARMEN Seybol d 2022-05-20 2022-05-20 Outpatient INFUSION, MARILYNN CARDENAS [id number] [place] 11:00:00 11:00:00 MC Seybol d 2022-05-20 2022-05-20 Outpatient INFUSION, MARILYNN CARDENAS [id number] [place] 11:00:00 11:00:00 MC Seybol d 2022-05-20 2022-05-20 Outpatient IVT, DAYSI CARDENAS [id number] [place] 09:00:00 09:00:00 Seybol d 2022-05-20 2022-05-20 Outpatient IVT, DAYSI CARDENAS [id number] [place] 08:30:00 08:30:00 Seybol d 2022-05-20 2022-05-20 Documentat Yuki, 1.2.840.1 [id number] Univers 00:00:00 00:00:00 ion Troy T 80835.1.1 ity of 3.412.2.7 [place] .3.118118 MD Damian8 [facility] 2022-05-19 2022-05-19 Outpatient MARILYNN BRODERICK [id number] [place] 11:00:00 11:00:00 KAREN Seybol d 2022-05-19 2022-05-19 Outpatient MARILYNN FELTON [id number] [place] 10:40:00 10:40:00 PORFIRIO Seybol d 2022-05-16 2022-05-16 Outpatient KASSANDRA MARILYNN CARDENAS [id number] [place] 00:00:00 00:00:00 PURVIBEN Seybo ld 2022-05-16 2022-05-16 Outpatient CANNON, MARILYNN CARDENAS [id number] [place] 00:00:00 00:00:00 PURVIBEN Seybo ld 2022-05-15 2022-05-15 Outpatient MANTALLISON, MARILYNN CARDENAS [id number] [place] 00:00:00 00:00:00 FRANCESCA Seybol d 2022-05-13 2022-05-13 Outpatient INFUSION, MARILYNN CARDENAS [id number] [place] 11:00:00 11:00:00 MC Seybol d 2022-05-09 2022-05-09 Outpatient ABBAS, MARILYNN CARDENAS [id number] [place] 00:00:00 00:00:00 KANZA Seybol d 2022-05-09 2022-05-09 Outpatient LE, DAMIAN MARILYNN CARDEANS [id number] [place] 00:00:00 00:00:00 Seybol d 2022-05-08 2022-05-08 Outpatient HOLLI, MARILYNN CARDENAS [id number] [place] 09:00:00 09:00:00 ALOK Seybol d 2022-05-07 2022-05-07 Outpatient LE, DAMIAN MARILYNN CARDENAS [id number] [place] 00:00:00 00:00:00 Seybol d 2022-05-06 2022-05-06 Outpatient MANTALLISON, MARILYNN CARDENAS [id number] [place] 00:00:00 00:00:00 FRANCESCA Seybol d 2022-05-05 2022-05-05 Outpatient INFUSION, MARILYNN CARDENAS [id number] [place] 11:30:00 11:30:00 MC Seybol d 2022-05-05 2022-05-05 Outpatient INFUSION, MARILYNN CARDENAS [id number] [place] 09:00:00 09:00:00 MC Seybol d 2022-05-05 2022-05-05 Orders Garima, 1.2.840.1 [id number] [facility] 00:00:00 00:00:00 Only Gabryella 61988.1.1 it y of 3.412.2.7 [place] .[id number] MD Menjivar [facility] [place] 2022-05-02 2022-05-02 Outpatient MARILYNN CANNON [id number] [place] 00:00:00 00:00:00 MEGANSHANECIARA tacoso gareth 2022-05-02 2022-05-02 Outpatient MARILYNN JENSEN [id number] [place] 00:00:00 00:00:00 KOLTON Seybo ld 2022-05-01 2022-05-01 Outpatient MARILYNN JANSEN [id number] [place]nn 00:00:00 00:00:00 DEPT Seybol d 2022-04-30 2022-04-30 Telemmiguel Eubanks 1.2.840.1 [id number] [facility] 16:30:00 16:38:10 ne Joann 40398.1.1 ity of 3.412.2.7 [place] .3.508705 .8 [facility] 2022-04-30 2022-04-30 Outpatient ROB EUBANKS [facility] [id number] 16:22:26 16:38:10 JOANN day 2022-04-30 2022-04-30 Outpatient MARILYNN VALENZUELA [id number] [place] 00:00:00 00:00:00 FRANCESCA Seybol d 2022-04-30 2022-04-30 Outpatient MARILYNN SAMUEL [id number] [place] 00:00:00 00:00:00 KANZA Seybol d 2022-04-30 2022-04-30 Orders Clay, 1.2.840.1 [id number] Univers 00:00:00 00:00:00 Only Hailey Blessing [id number] it y of 3.412.2.7 [place] .3.404277 MD Damian8 [facility] 2022-04-29 2022-04-29 Outpatient MARILYNN SAMUEL [id number] Marilynn 10:00:00 10:00:00 KANZA Seybol d 2022-04-29 2022-04-29 Outpatient MARILYNN CANNON [id number] Marilynn 00:00:00 00:00:00 EMILY Seybol d 2022-04-28 2022-04-28 Outpatient MARILYNN CARDENAS [id number] Marilynn 14:30:00 14:30:00 Seybol d 2022-04-28 2022-04-28 Outpatient MARILYNN CARDENAS [id number] Marilynn 13:30:00 13:30:00 Seybol d 2022-04-28 2022-04-28 Outpatient TAILOR, MARILYNN CARDENAS [id number] Marilynn 00:00:00 00:00:00 HIRESH Seybol d 2022-04-23 2022-04-23 Orders Serrao, 1.2.840.1 [id number] Univers 00:00:00 00:00:00 Only Gabryella 16621.1.1 it y of 3.412.2.7 [place] .3.227939 .8 Hu Hu [facility] 2022-04-21 2022-04-21 Outpatient LAB47 MARILYNN CARDENAS [id number] Marilynn 11:10:00 11:10:00 Seybol d 2022-04-21 2022-04-21 Outpatient MARILYNN HAMLIN [id number] Marilynn 10:00:00 10:00:00 KARLY Seyb old 2022-04-14 2022-04-14 Outpatient INFUSION, MARILYNN CARDENAS [id number] Marilynn 13:30:00 13:30:00 MC Seybol d 2022-04-14 2022-04-14 Outpatient IOC, LAB MARILYNN CARDENAS [id number] Marilynn 13:25:00 13:25:00 Seybol d 2022-04-14 2022-04-14 Outpatient IOC, LAB MARILYNN CARDENAS [id number] Marilynn 13:20:00 13:20:00 Seybol d 2022-04-14 2022-04-14 Outpatient INFUSION, MARILYNN CARDENAS [id number] Marilynn 09:00:00 09:00:00 MC Seybol d 2022-04-11 2022-04-11 Outpatient MYMARILYNNONTaco CARDENAS [id number] Marilynn 00:00:00 00:00:00 MD EUGENIO Seybol d 2022-04-04 2022-04-04 Outpatient MARILYNN SAMUEL [id number] Marilynn 12:00:00 12:00:00 KANZA Seybol d 2022-04-04 2022-04-04 Outpatient MARILYNN REINA [id number] Marilynn 00:00:00 00:00:00 HIRESH Seybol d 2022-03-27 2022-03-27 Outpatient MARILYNN STALLWORTH [id number] Marilynn 11:00:00 11:00:00 DAVI Seybol d 2022-03-26 2022-03-26 Outpatient ALAGUGURUSA MARILYNN CARDENAS [id number] Marilynn 12:00:00 12:00:00 MY Seybol d WILIAM 2022-03-24 2022-03-24 Outpatient IOC, LAB MARILYNN CARDENAS [id number] Marilynn 14:50:00 14:50:00 Seybol d 2022-03-24 2022-03-24 Outpatient IOC, LAB MARILYNN CARDENAS [id number] Marilynn 14:45:00 14:45:00 Seybol d 2022-03-24 2022-03-24 Outpatient INFUSION, MARILYNN CARDENAS [id number] Marilynn 11:30:00 11:30:00 MC Seybol d 2022-03-24 2022-03-24 Outpatient INFUSIONMARILYNN [id number] Marilynn 09:00:00 09:00:00 MC Seybol d 2022-03-21 2022-03-21 Outpatient MARILYNN STALLWORTH [id number] Marilynn 00:00:00 00:00:00 DAVI Seybol d 2022-03-21 2022-03-21 Outpatient MARILYNN JENSEN [id number] Marilynn 00:00:00 00:00:00 MIHIR Seybol d 2022-03-17 2022-03-17 Outpatient MARILYNN DE LA GARZA [id number] Marilynn 15:00:00 15:00:00 ALOK Seybol d 2022-03-17 2022-03-17 Outpatient NAN CARDENAS [id number] Marilynn 00:00:00 00:00:00 MD Rafael BECKER d 2022-03-17 2022-03-17 Outpatient CANNON, MARILYNN CARDENAS [id number] Marilynn 00:00:00 00:00:00 JL servin 2022-03-14 2022-03-14 Outpatient LIZZIEMARILYNN [id number] Marilynn 11:40:00 11:40:00 KANZA Seybol d 2022-03-14 2022-03-14 Outpatient LIZZIEMARILYNN [id number] Marilynn 10:00:00 10:00:00 KANZA Seybol d 2022-03-12 2022-03-12 Outpatient ROB EUBANKS MDA MDA [id number] 20:46:11 20:46:11 JOANN day 2022-03-12 2022-03-12 Outpatient ROB EUBANKS MDA MDA [id number] 20:46:06 20:46:06 JOANN day 2022-03-12 2022-03-12 Ancillary Vasu, 1.2.840.1 [id number] Univers 20:05:00 20:10:00 Procedure Joann 84899.1.1 it y of 3.412.2.7 [place] .3.801615 .8 [facility] 2022-03-12 2022-03-12 Ancillary Vasu, 1.2.840.1 [id number] Univers 20:00:00 20:05:00 Procedure Joann 87418.1.1 it y of 3.412.2.7 [place] .3.291441 .J Luis [facility] 2022-03-12 2022-03-12 Office Vasu, 1.2.840.1 [id number] Univers 13:30:00 15:28:30 Visit Joann 05779.1.1 ity of 3.412.2.7 [place] .3.493101 [facility] 2022-03-12 2022-03-12 Outpatient ROB EUBANKS MDA MDA [id number] 13:06:48 15:28:30 JOANN day 2022-03-12 2022-03-12 Documentat Román, 1.2.840.1 [id number] Univers 00:00:00 00:00:00 ion Maurice 57297.1.1 ity of 3.412.2.7 [place] .3.617967 .8 [facility] 2022-03-12 2022-03-12 Travel 1.2.840.1 1.2.511.741 [id number] Univers 00:00:00 00:00:00 73726.1.1 350.1.13.41 ity of 3.412.2.7 [place].3.698 [place] .3.587518 084.8 .8 [facility] 2022-03-12 2022-03-12 Orders Wesley, 1.2.840.1 [id number] Univers 00:00:00 00:00:00 Only Neha Lynn 93080.1.1 ity of 3.412.2.7 [place] .3.012471 .8 [facility] 2022-03-04 2022-03-04 Outpatient MARILYNN SAMUEL [id number] Marilynn 00:00:00 00:00:00 KANZA Seybol d 2022-03-03 2022-03-03 Outpatient MARILYNN DE LA GARZA [id number] Marilynn 14:00:00 14:00:00 ALOK Seybol d 2022-03-03 2022-03-03 Outpatient CARMENZA, MARILYNN CARDENAS [id number] Marilynn 10:30:00 10:30:00 MC Seybol d 2022-03-03 2022-03-03 Outpatient IOC, LAB MARILYNN CARDENAS [id number] Marilynn 08:10:00 08:10:00 Seybol d 2022-03-03 2022-03-03 Outpatient IOC, LAB MARILYNN CARDENAS [id number] Marilynn 08:05:00 08:05:00 Seybol d 2022-03-03 2022-03-03 Outpatient MARILYNN SAMUEL [id number] Marilynn 00:00:00 00:00:00 KANZA Seybol d 2022-02-28 2022-02-28 Outpatient MARILYNN HERR [id number] Marilynn 15:15:00 15:15:00 MC Seybol d 2022-02-28 2022-02-28 Outpatient MARILYNN SAMUEL [id number] Marilynn 10:00:00 10:00:00 KANZA Seybol d 2022-02-28 2022-02-28 Outpatient MARILYNN REZA [id number] Marilynn 00:00:00 00:00:00 LAKEASHIA Seyb old 2022-02-28 2022-02-28 Outpatient MARILYNN CANNON [id number] Marilynn 00:00:00 00:00:00 EMILY Seybol d 2022-02-27 2022-02-27 Outpatient MARILYNN REZA [id number] Marilynn 00:00:00 00:00:00 LAKEASHIA Seyb old 2022-02-26 2022-02-26 Outpatient DAMIAN YU [id number] Marilynn 00:00:00 00:00:00 Seybol d 2022-02-26 2022-02-26 Outpatient DAMIAN YU [id number] Marilynn 00:00:00 00:00:00 Seybol d 2022-02-26 2022-02-26 Outpatient MARILYNN SAMUEL [id number] Marilynn 00:00:00 00:00:00 KANZA Seybol d 2022-02-26 2022-02-26 Orders Clay, 1.2.840.1 [id number] Univers 00:00:00 00:00:00 Only Hailey H 05253.1.1 it y of 3.412.2.7 [place] .3.863052 MD Damian8 [facility] 2022-02-25 2022-02-25 Outpatient CINTHIA WONG [id number] Marilynn 11:30:00 11:30:00 Seybol d 2022-02-25 2022-02-25 Outpatient RADIOLOGY, MARILYNN CARDENAS [id number] Marilynn 00:00:00 00:00:00 DEPT Seybol d 2022-02-25 2022-02-25 Outpatient LE, DAMIAN MARILYNN CARDENAS [id number] Marilynn 00:00:00 00:00:00 Seybol d 2022-02-25 2022-02-25 Telephone Chiquita Trejo 1.2.840.1 [id number] Univers 00:00:00 00:00:00 T 75669.1.1 ity of 3.412.2.7 [place] .3.271442 MD .8 [facility] 2022-02-24 2022-02-24 Outpatient IOC, LAB MARILYNN CARDENAS [id number] Marilynn 12:15:00 12:15:00 Seybol d 2022-02-24 2022-02-24 Outpatient INFUSION, MARILYNN CARDENAS [id number] Marilynn 11:00:00 11:00:00 MC Seybol d 2022-02-24 2022-02-24 Outpatient IVT, DAYSI CARDENAS [id number] Marilynn 11:00:00 11:00:00 Seybol d 2022-02-24 2022-02-24 Outpatient INFUSION, MARILYNN CARDENAS [id number] Marilynn 08:00:00 08:00:00 MC Seybol d 2022-02-24 2022-02-24 Outpatient MARILYNN SAMUEL [id number] Marilynn 08:00:00 08:00:00 KANZA Seybol d 2022-02-24 2022-02-24 Outpatient MARILYNN SAMUEL [id number] Marilynn 08:00:00 08:00:00 KANZA Seybol d 2022-02-24 2022-02-24 Outpatient TAILORMARILYNN [id number] Marilynn 00:00:00 00:00:00 HIRESH Seybol d 2022-02-24 2022-02-24 Outpatient MARILYNN VALENZUELA [id number] Marilynn 00:00:00 00:00:00 FRANCESCA Seybol d 2022-02-24 2022-02-24 Outpatient MANTMARILYNN COOPER [id number] Marilynn 00:00:00 00:00:00 FRANCESCA Seybol d 2022-02-24 2022-02-24 Outpatient LEDAMIAN MARILYNN CARDENAS [id number] Marilynn 00:00:00 00:00:00 Seybol d 2022-02-21 2022-02-21 Outpatient REZA, MARILYNN CARDENAS [id number] Marilynn 00:00:00 00:00:00 LAKEASHIA Seyb old 2022-02-18 2022-02-18 Outpatient MARILYNN CARDENAS [id number] Marilynn 14:30:00 14:30:00 Seybol d 2022-02-18 2022-02-18 Outpatient MARILYNN CARDENAS [id number] Marilynn 13:30:00 13:30:00 Seybol d 2022-02-17 2022-02-17 Outpatient TAILOR, MARILYNN CARDENAS [id number] Marilynn 00:00:00 00:00:00 HIRESH Seybol d 2022-02-11 2022-02-11 Outpatient TAMMY, JULIETA MARILYNN CARDENAS [id number] Marilynn 13:30:00 13:30:00 Seybol d 2022-02-07 2022-02-07 Outpatient INFUSION, MARILYNN CARDENAS [id number] Marilynn 16:15:00 16:15:00 MC Seybol d 2022-02-07 2022-02-07 Outpatient INFUSION, MARILYNN CARDENAS [id number] Marilynn 14:00:00 14:00:00 MC Seybol d 2022-02-07 2022-02-07 Outpatient ABBAS, MARILYNN CARDENAS [id number] Marilynn 00:00:00 00:00:00 KANZA Seybol d 2022-02-06 2022-02-06 Outpatient INFUSION, MARILYNN CARDENAS [id number] Marilynn 14:30:00 14:30:00 MC Seybol d 2022-02-05 2022-02-05 Outpatient ALAGUGURUSA MARILYNN CARDENAS [id number] Marilynn 00:00:00 00:00:00 MY, Seybol d WILIAM 2022-02-04 2022-02-04 Outpatient MARILYNN CARDENAS [id number] Marilynn 11:30:00 11:30:00 Seybol d 2022-02-04 2022-02-04 Outpatient MARILYNN CARDENAS [id number] Marilynn 10:30:00 10:30:00 Seybol d 2022-02-03 2022-02-03 Outpatient IOC, LAB MARILYNN CARDENAS [id number] Marilynn 15:05:00 15:05:00 Seybol d 2022-02-03 2022-02-03 Outpatient IOC, LAB MARILYNN CARDENAS [id number] Marilynn 15:00:00 15:00:00 Seybol d 2022-02-03 2022-02-03 Outpatient INFUSION, MARILYNN CARDENAS [id number] Marilynn 09:45:00 09:45:00 MC Seybol d 2022-02-03 2022-02-03 Outpatient LE, DAMIAN CARDENAS [id number] Marilynn 00:00:00 00:00:00 Seybol d 2022-01-31 2022-01-31 Outpatient LE, DAMIAN CARDENAS [id number] Marilynn 00:00:00 00:00:00 Seybol d 2022-01-31 2022-01-31 Outpatient TRIKHA, MARILYNN CARDENAS [id number] Marilynn 00:00:00 00:00:00 SAUNDRA Seybol d 2022-01-30 2022-01-30 Outpatient MYKELSEYONL MARILYNN CARDENAS [id number] Marilynn 00:00:00 00:00:00 MD EUGENIO Seybol d 2022-01-27 2022-01-27 Outpatient LE, DAMIAN CARDENAS [id number] Marilynn 00:00:00 00:00:00 Seybol d 2022-01-27 2022-01-27 Outpatient TAILOR, MARILYNN CARDENAS [id number] Marilynn 00:00:00 00:00:00 HIRESH Seybol d 2022-01-24 2022-01-24 Outpatient INFUSION, MARILYNN CARDENAS [id number] Marilynn 14:00:00 14:00:00 MC Seybol d 2022-01-23 2022-01-23 Infusion Infusion, NIKKI 1.2.840.114 [id number] Marilynn 14:00:00 16:00:00 CAMPUS 350.1.13.13 [facility]bold 1.2.7.2.686 [id number] 2022-01-23 2022-01-23 Outpatient INFUSION, MARILYNN CARDENAS [id number] Marilynn 14:30:00 14:30:00 MC Seybol d 2022-01-22 2022-01-22 Outpatient TAILOR, MARILYNN CARDENAS [id number] Marilynn 00:00:00 00:00:00 HIRESH Seybol d 2022-01-21 2022-01-21 Telemedici LIZZIE, MAIN 1.2.840.114 [id number] Marilynn 12:00:00 12:00:00 [facility] 350.1.13.13 Se ybold 1.2.7.2.686 [id number] 2022-01-21 2022-01-21 Outpatient INFUSION, MARILYNN CARDENAS [id number] Marilynn 11:00:00 11:00:00 Seybol d 2022-01-21 2022-01-21 Outpatient LE, DAMIAN CARDENAS [id number] Marilynn 00:00:00 00:00:00 Seybol d 2022-01-17 2022-01-17 Infusion Infusion, MAIN 1.2.840.114 [id number] Marilynn 14:15:00 15:15:00 [facility] 350.1.13.13 Se ybold 1.2.7.2.686 [id number] 2022-01-13 2022-01-13 Outpatient IOC, LAB MARILYNN CARDENAS [id number] Marilynn 15:00:00 15:00:00 Seybol d 2022-01-13 2022-01-13 Infusion Infusion, MAIN 1.2.840.114 [id number] Marilynn 09:45:00 14:45:00 [facility] 350.1.13.13 Se ybold 1.2.7.2.686 [id number] 2022-01-13 2022-01-13 Outpatient IOC, LAB MARILYNN CARDENAS [id number] Marilynn 09:40:00 09:40:00 Seybol d 2022-01-13 2022-01-13 Outpatient LE, DAMIAN CARDENAS [id number] Marilynn 00:00:00 00:00:00 Seybol d 2022-01-11 2022-01-11 Outpatient RADIOLOGY, MARILYNN CARDENAS [id number] Marilynn 00:00:00 00:00:00 DEPT Seybol d 2022-01-10 2022-01-10 Outpatient MARILYNN CARDENAS [id number] Marilynn 11:30:00 11:30:00 Seybol d 2022-01-10 2022-01-10 Outpatient MARILYNN CARDENAS [id number] Marilynn 10:30:00 10:30:00 Seybol d 2022-01-10 2022-01-10 Outpatient TRIARLINEA, MARILYNN CARDENAS [id number] Marilynn 00:00:00 00:00:00 SAUNDRA Seybol d 2022-01-06 2022-01-06 Outpatient LIZZIE, MARILYNN CARDENAS [id number] Marilynn 14:00:00 14:00:00 KANZA Seybol d 2022-01-06 2022-01-06 Outpatient LE, DAMIAN MARILYNN CARDENAS [id number] Marilynn 00:00:00 00:00:00 Seybol d 2022-01-03 2022-01-03 Outpatient INFUSION, MARILYNN CARDENAS [id number] Marilynn 14:00:00 14:00:00 MC Seybol d 2022-01-02 2022-01-02 Outpatient LAB90 MARILYNN CARDENAS [id number] Marilynn 11:25:00 11:25:00 Seybol d 2022-01-01 2022-01-01 Outpatient LAB90 MARILYNN CARDENAS [id number] Marilynn 15:55:00 15:55:00 Seybol d 2022-01-01 2022-01-01 Outpatient INFUSION, MARILYNN CARDENAS [id number] Marilynn 14:30:00 14:30:00 MC Seybol d 2021-12-31 2021-12-31 Telemedici NIKKI Samuel 1.2.840.114 [id number] Marilynn 14:00:00 14:23:53 [facility] 350.1.13.13 Se ybold 1.2.7.2.686 [id number] 2021-12-30 2021-12-30 Outpatient INFUSION, MARILYNN CARDENAS [id number] Marilynn 11:00:00 11:00:00 MC Seybol d 2021-12-27 2021-12-27 Infusion Infusion, MAIN 1.2.840.114 [id number] Marilynn 14:15:00 15:15:00 [facility] 350.1.13.13 Se ybold 1.2.7.2.686 [id number] 2021-12-23 2021-12-23 Outpatient IOC, LAB MARILYNN CARDENAS [id number] Marilynn 15:15:00 15:15:00 Seybol d 2021-12-23 2021-12-23 Infusion Infusion, MAIN 1.2.840.114 [id number] Marilynn 10:00:00 15:00:00 [facility] 350.1.13.13 Se ybold 1.2.7.2.686 [id number] 2021-12-23 2021-12-23 Outpatient IOC, LAB MARILYNN CARDENAS [id number] Marilynn 09:55:00 09:55:00 Seybol d 2021-12-23 2021-12-23 Outpatient MARILYNN CANNON [id number] Marilynn 00:00:00 00:00:00 EMILY Seybol d 2021-12-23 2021-12-23 Outpatient MARILYNN CANNON [id number] Marilynn 00:00:00 00:00:00 EMILY Seybol d 2021-12-20 2021-12-20 Outpatient INFUSION, MARILYNN CARDENAS [id number] Marilynn 15:15:00 15:15:00 MC Seybol d 2021-12-20 2021-12-20 Outpatient TRIARLINEAMARILYNN [id number] Marilynn 00:00:00 00:00:00 SAUNDRA Seybol d 2021-12-16 2021-12-16 Outpatient INFUSION, MARILYNN CARDENAS [id number] Marilynn 09:00:00 09:00:00 MC Seybol d 2021-12-16 2021-12-16 Outpatient MARILYNN REINA [id number] Marilynn 00:00:00 00:00:00 HIRESH Seybol d 2021-12-16 2021-12-16 Outpatient MARILYNN REINA [id number] Marilynn 00:00:00 00:00:00 HIRESH Seybol d 2021-12-13 2021-12-13 Outpatient INFUSION, MARILYNN CARDENAS [id number] Marilynn 14:15:00 14:15:00 MC Seybol d 2021-12-11 2021-12-11 Outpatient INFUSION, MARILYNN CARDENAS [id number] Marilynn 14:45:00 14:45:00 MC Seybol d 2021-12-09 2021-12-09 Outpatient INFUSION, MARILYNN CARDENAS [id number] Marilynn 11:00:00 11:00:00 MC Seybol d 2021-12-09 2021-12-09 Outpatient REZA, MARILYNN CARDENAS [id number] Marilynn 00:00:00 00:00:00 LAKEASHIA Seyb old 2021-12-06 2021-12-06 Outpatient PARK, MARILYNN CARDENAS [id number] Marilynn 00:00:00 00:00:00 BLESSING Seybo ld 2021-12-04 2021-12-04 Outpatient FLOOR, LAB MARILYNN CARDENAS [id number] Marilynn 15:30:00 15:30:00 Seybol d 2021-12-04 2021-12-04 Office NIKKI Samuel 1.2.840.114 [id number] Marilynn 14:40:00 15:00:00 [facility] 350.1.13.13 [facility] 1.2.7.2.686 [id number] 2021-12-04 2021-12-04 Outpatient MARILYNN SAMUEL [id number] Marilynn 00:00:00 00:00:00 KANZA Seybol d 2021-12-02 2021-12-02 Outpatient MARILYNN SAMUEL [id number] Marilynn 16:20:00 16:20:00 KANZA Seybol d 2021-12-02 2021-12-02 Outpatient DAMIAN YU [id number] Marilynn 00:00:00 00:00:00 Seybol d 2021-11-29 2021-11-29 Telemedici ABDIEL Ross 1.2.840.114 [id number] Marilynn 10:15:00 10:15:00 [facility] 350.1.13.13 Seybold DIAGNOSTI 1.2.7.2.686 [facility] [id number] 2021-11-22 2021-11-22 Infusion Infusion, MAIN 1.2.840.114 [id number] Marilynn 15:30:00 16:30:00 [facility] 350.1.13.13 Se ybold 1.2.7.2.686 [id number] 2021-11-21 2021-11-21 Outpatient INFUSION, MARILYNN CARDENAS [id number] Marilynn 15:15:00 15:15:00 Seybol d 2021-11-19 2021-11-19 Outpatient IOC, LAB MARILYNN CARDENAS [id number] Marilynn 15:20:00 15:20:00 Seybol d 2021-11-19 2021-11-19 Outpatient IOC, LAB MARILYNN CARDENAS [id number] Marilynn 15:15:00 15:15:00 Seybol d 2021-11-19 2021-11-19 Infusion Infusion, MAIN 1.2.840.114 [id number] Marilynn 10:00:00 15:00:00 [facility] 350.1.13.13 Se ybold 1.2.7.2.686 [id number] 2021-11-11 2021-11-11 Outpatient MARILYNN SAMUEL [id number] Marilynn 09:00:00 09:00:00 KANZA Seybol d 2021-11-11 2021-11-11 Outpatient MARILYNN BATISTA [id number] Marilynn 00:00:00 00:00:00 JOOYOUNG Seybo ld 2021-11-11 2021-11-11 Outpatient MARILYNN REINA [id number] Mar[place]nn 00:00:00 00:00:00 HIRESH Seybol d 2021-11-11 2021-11-11 Outpatient MARILYNN REINA [id number] Mar[place]nn 00:00:00 00:00:00 HIRESH Seybol d 2021-11-08 2021-11-08 Outpatient MARILYNN SAMUEL [id number] Mar[place]nn 00:00:00 00:00:00 KANZA Seybol d 2021-11-04 2021-11-04 Outpatient AIMEE, DAMIAN MARILYNN CARDENAS [id number] Marilynn 00:00:00 00:00:00 Seybol d 2021-11-01 2021-11-01 Infusion Infusion, MAIN 1.2.840.114 [id number] Marilynn 14:00:00 15:00:00 [facility] 350.1.13.13 Se ybold 1.2.7.2.686 [id number] 2021-11-01 2021-11-01 Outpatient DAMIAN YU MARILYNN CARDENAS [id number] Marilynn 00:00:00 00:00:00 Seybol d 2021-11-01 2021-11-01 Outpatient KASSANDRA MARILYNN CARDENAS [id number] Marilynn 00:00:00 00:00:00 EMILY Seybol d 2021-11-01 2021-11-01 Outpatient KASSANDRA MARILYNN CARDENAS [id number] Marilynn 00:00:00 00:00:00 EMIYL Seybol d 2021-10-29 2021-10-29 Outpatient LESTER MARILYNN CARDENAS [id number] Marilynn 00:00:00 00:00:00 JOOYOUNG Seybo ld 2021-10-28 2021-10-28 Outpatient IOC, LAB MARILYNN CARDENAS [id number] Marilynn 16:40:00 16:40:00 Seybol d 2021-10-28 2021-10-28 Outpatient IOC, LAB MARILYNN CARDENAS [id number] Marilynn 16:35:00 16:35:00 Seybol d 2021-10-28 2021-10-28 Office NIKKI Samuel 1.2.840.114 [id number] Marilynn 16:00:00 16:20:00 Visit [facility] 350.1.13.13 Se ybold 1.2.7.2.686 [id number] 2021-10-28 2021-10-28 Infusion Infusion, MAIN 1.2.840.114 [id number] Marilynn 11:00:00 16:00:00 [facility] 350.1.13.13 Se ybold 1.2.7.2.686 [id number] 2021-10-28 2021-10-28 Outpatient KASSANDRA MARILYNN CARDENAS [id number] Marilynn 00:00:00 00:00:00 EMILY Seybol d 2021-10-28 2021-10-28 Outpatient DAMIAN YU MARILYNN CARDENAS [id number] Marilynn 00:00:00 00:00:00 Seybol d 2021-10-24 2021-10-24 Outpatient NANCY, MARILYNN CARDENAS [id number] Marilynn 09:40:00 09:40:00 MESFIN Seybol d 2021-10-21 2021-10-21 Outpatient MARILYNN RUTH [id number] Marilynn 00:00:00 00:00:00 SAUNDRA Seybol d 2021-10-18 2021-10-18 Outpatient MARILYNN BATISTA [id number] Marilynn 00:00:00 00:00:00 JOBHAVNA Seybo ld 2021-10-17 2021-10-17 Outpatient LAB90 MARILYNN CARDENAS [id number] Marilynn 08:25:00 08:25:00 Seybol d 2021-10-16 2021-10-16 Outpatient MARILYNN SAMUEL [id number] Marilynn 00:00:00 00:00:00 KANZA Seybol d 2021-10-15 2021-10-15 Outpatient COVID-MODER MARILYNN CARDENAS [id number] Marilynn 13:40:00 13:40:00 NA EUSEBIO Seybo [facility] 2021-10-11 2021-10-11 Outpatient NANCY MARILYNN CARDENAS [id number] Marilynn 00:00:00 00:00:00 MESFIN Seybol d 2021-10-10 2021-10-10 Telemedici LIZZIE, [place] 1.2.840.114 [id number] Marilynn 11:00:00 11:00:00 ne KANZA [facility] 350.1.13.13 Se ybold AND 1.2.7.2.686 DIAGNOSTI [id number] C CENTER 0 2021-10-09 2021-10-09 Outpatient DAMIAN YU MARILYNN CARDENAS [id number] Marilynn 00:00:00 00:00:00 Seybol d 2021-10-09 2021-10-09 Outpatient AIMEEDAMIAN MARILYNN CARDENAS [id number] Marilynn 00:00:00 00:00:00 Seybol d 2021-10-08 2021-10-08 Outpatient MARILYNN SAMUEL [id number] Marilynn 00:00:00 00:00:00 KANZA Seybol d 2021-10-04 2021-10-04 Outpatient EL LIZZIE, [facility] [id number] SLE 06:35:46 23:59:00 KANZA 2021-10-04 2021-10-04 Outpatient UR LUNA, [facility] Surgery 5 [id number] SLE 06:00:00 09:35:00 MELLISSA 2021-10-04 2021-10-04 Outpatient MARILYNN SAMUEL [id number] Marilynn 00:00:00 00:00:00 KANZA Seybol d 2021-10-03 2021-10-03 [facility], 1.2.840.1 [id number] [facility] 09:59:41 23:59:00 Encounter Juancarlos 15138.1.1 it y of 3.412.2.7 [place] .[id number] MD Damian8 [facility] 2021-10-03 2021-10-03 [facility] Elijah Farris 1.2.840.1 [id number] [facility] 08:03:33 09:58:00 Encounter Bigg Cooper 30531.1.1 ity of 3.412.2.7 [place] .3Rickie332110 MD Damian8 [facility] 2021-10-03 2021-10-03 [facility] 1.2.840.1 [id number] [facility] 00:00:00 00:00:00 pljeana Navarro 18458.1.1 ity of Visit 3.412.2.7 [place] .3Rickei140715 MD Damian8 [facility] 2021-10-03 2021-10-03 Travel 1.2.840.1 1.2.877.319 [id number] Univers 00:00:00 00:00:00 29218.1.1 350.1.13.41 ity of 3.412.2.7 [place].3.698 [place]3.226595 084.8 MD Menjivar [facility] 2021-10-02 2021-10-02 Ancillary Vasu, 1.2.840.1 [id number] Univers 22:10:00 22:15:00 Procedure Joann 63619.1.1 it y of 3.412.2.7 [place] .3.037996 .8 [facility] 2021-10-02 2021-10-02 Ancillary Vasu, 1.2.840.1 [id number] Univers 22:05:00 22:10:00 Procedure Joann 86951.1.1 it y of 3.412.2.7 [place] .3.397382 MD Damian8 [facility] 2021-10-02 2021-10-02 Jayro Eubanks, 1.2.840.1 [id number] Univers 14:00:00 15:16:29 Visit Joann 85386.1.1 ity of 3.412.2.7 [place] .3.476869 MD Menjivar [facility] 2021-10-02 2021-10-02 Documentat Kimberly Hernadez 1.2.840.1 [id number] [facility] 00:00:00 00:00:00 ion 97447.1.1 ity of 3.412.2.7 [place] .3.214270 MD Menjivar [facility] 2021-10-02 2021-10-02 Orders Kimberly Hernadez 1.2.840.1 [id number] Univers 00:00:00 00:00:00 Only 05779.1.1 ity of 3.412.2.7 [place] .3.199844 MD Menjivar [facility] 2021-10-02 2021-10-02 Travel 1.2.840.1 1.2.700.823 [id number] Univers 00:00:00 00:00:00 23233.1.1 350.1.13.41 ity of 3.412.2.7 [place].3.698 [place] .3.976606 084.8 .8 [facility] 2021-10-02 2021-10-02 Orders Vasu, 1.2.840.1 [id number] [facility] 00:00:00 00:00:00 Only Joann 17180.1.1 ity of 3.412.2.7 [place] .3.669762 .8 [facility] 2021-10-01 2021-10-01 [place] Joann Eubanks 1.2.840.1 [id number] Univers 12:15:00 12:30:00 Support Hillary Geronimo 76208.1.1 ity of 3.412.2.7 [place] .3.341204 MD Damian8 [facility] 2021-10-01 2021-10-01 Travel 1.2.840.1 1.2.627.447 [id number] Univers 00:00:00 00:00:00 68585.1.1 350.1.13.41 ity of 3.412.2.7 [place]7.3.698 [place] .3.858624 084.8 MD Damian8 [facility] 2021-09-30 2021-09-30 Office VANDANANIKKI 1.2.945.753 [id number] Marilynn 09:45:00 09:45:00 Visit [facility] 350.1.13.13 ybold 1.2.7.2.686 [id number] 2021-09-30 2021-09-30 Outpatient SWAB, MARILYNN CARDENAS [id number] Marilynn 09:10:00 09:10:00 Seybol d 2021-09-30 2021-09-30 Outpatient FL1, MARILYNN CARDENAS [id number] Marilynn 08:40:00 08:40:00 SJD22-MYF Seyb old 2021-09-30 2021-09-30 Lab Matthew Lam 1.2.840.1 [id number] Univers 00:00:00 00:00:00 Amanda Baptiste 22032.1.1 ity of n 3.412.2.7 [place] .3.830851 MD Menjivar [facility] 2021-09-27 2021-09-27 RADHA Eubanks, 1.2.840.1 [id number] Univers 08:00:00 08:30:00 Joann 08467.1.1 ity of 3.412.2.7 [place] .3.841826 MD Damian8 [facility] 2021-09-26 2021-09-26 Office Josué Mccain 1.2.840.114 [id number] Marilynn 09:30:00 10:00:00 Visit [place] 350.1.13.13 Se guidry 1.2.7.2.686 [id number] 2021-09-26 2021-09-26 Outpatient MARILYNN CARDENAS [id number] Marilynn 09:30:00 09:30:00 Seybol margie 2021-09-23 2021-09-23 Outpatient MARILYNN SAMUEL [id number] Marilynn 00:00:00 00:00:00 JUSTIN Seybol d 2021-09-20 2021-09-20 Orders Elijah aFrris 1.2.840.1 [id number] Univers 00:00:00 00:00:00 Only Jonnie 82488.1.1 ity of 3.412.2.7 [place] .3.079243 MD Menjivar [facility] 2021-09-19 2021-09-19 Christine Machado 1.2.840.1 [id number] Univers 00:00:00 00:00:00 Only Juan Delgadillo 31226.1.1 i ty of 3.412.2.7 [place] .3.408176 MD Menjivar [facility] 2021-09-19 2021-09-19 Travel 1.2.840.1 1.2.280.793 [id number] Univers 00:00:00 00:00:00 72248.1.1 350.1.13.41 ity of 3.412.2.[place]3.698 [place] .3.240[place] 084.8 MD .8 [facility] 2021-09-18 2021-09-18 Outpatient MARILYNN SAMUEL [id number] Marilynn 00:00:00 00:00:00 KANZA Seybol d 2021-09-16 2021-09-16 Outpatient MARILYNN SAMUEL [id number] Marilynn 00:00:00 00:00:00 KANZA Seybol d 2021-09-16 2021-09-16 Outpatient MARILYNN HAMLIN [id number] Marilynn 00:00:00 00:00:00 KARLY Seyb old 2021-09-16 2021-09-16 Outpatient MARILYNN SUTHERLAND [id number] Marilynn 00:00:00 00:00:00 CAT Seybol d 2021-09-13 2021-09-13 Outpatient MARILYNN SAMUEL [id number] Marilynn 00:00:00 00:00:00 KANZA Seybol d 2021-09-13 2021-09-13 Outpatient MARILYNN SAMUEL [id number] [place]nn 00:00:00 00:00:00 KANZA Seybol d 2021-09-12 2021-09-12 Telemedici SAGE SAMUEL 1.2.840.114 [id number] Mar[place]nn 11:20:00 11:20:00 ga KANZA [facility]ICAL 350.1.13.13 Se ybold AND 1.2.7.2.686 DIAGNOSTI [id number] C CENTER 0 2021-09-12 2021-09-12 Outpatient MARILYNN SAMUEL [id number] Mar[place]nn 00:00:00 00:00:00 KANZA Seybol d 2021-09-11 2021-09-11 Outpatient MARILYNN JANSEN [id number] [place]nn 00:00:00 00:00:00 DEPT Seybol d 2021-09-10 2021-09-10 Outpatient MARILYNN BLAIR [id number] Mar[place]nn 15:45:00 15:45:00 AKANKSHA Seybol d 2021-09-10 2021-09-10 Office NIKKI CARRASCO 1.2.840.114 [id number] [place]nn 13:00:00 13:00:00 Visit [facility] 350.1.13.13 S eybold 1.2.7.2.686 [id number] 2021-09-10 2021-09-10 Outpatient MARILYNN CARRASCO [id number] Mar[place]nn 00:00:00 00:00:00 [facility] Seybo ld 2021-09-06 2021-09-06 Outpatient MARILYNN CARDENAS [id number] [place]nn 10:45:00 10:45:00 Seybol d 2021-09-02 2021-09-02 Outpatient MARILYNN CARDENAS [id number] [place]nn 11:30:00 11:30:00 Seybol d 2021-09-02 2021-09-02 Outpatient MARILYNN CARDENAS [id number] Mar[place]nn 10:30:00 10:30:00 Seybol d 2021-08-28 2021-08-28 Office NIKKI Ross 1.2.304.945 [id number] [place]nn 11:15:00 11:30:00 Visit [facility] 350.1.13.13 Se ybold 1.2.7.2.686 [id number] 2021-08-26 2021-08-26 Outpatient CINTHIA WONG [id number] [place]nn 00:00:00 00:00:00 Seybol d 2021-08-16 2021-08-16 Outpatient MARILYNN CORMIER [id number] [place]nn 08:21:00 08:21:00 RAYMUNDO Seybo ld 2021-08-16 2021-08-16 Outpatient MARILYNN GONZALEZ [id number] [place]nn 00:00:00 00:00:00 POPEYE Seybo ld 2021-08-14 2021-08-14 Office MALGORZATA Mcgee 1.2.840.114 [id number] [place]nn 13:00:00 13:30:00 Visit Juan 350.1.13.13 Se ybold Karyn 1.2.7.2.686 [id number] 2021-08-14 2021-08-14 Outpatient MARILYNN MCGEE [id number] Mar[place]nn 00:00:00 00:00:00 JUAN Seybol d 2021-08-13 2021-08-13 Office NIKKI Ross 1.2.010.883 [id number] [place]nn 10:45:00 11:00:00 Visit [facility] 350.1.13.13 Se ybold 1.2.7.2.686 [id number] 2021-08-12 2021-08-12 Outpatient FL1, MARILYNN CARDENAS [id number] [place]nn 10:25:00 10:25:00 [id number] Seyb old 2021-08-12 2021-08-12 Outpatient SWAB, MARILYNN CARDENAS [id number] [place]nn 10:00:00 10:00:00 Seybol d 2021-08-07 2021-08-07 Outpatient ISABELCHIQUITA [id number] [place] 13:30:00 13:30:00 Seybol d 2021-08-05 2021-08-05 Outpatient LAB90 MARILYNN CARDENAS [id number] [place]nn 09:35:00 09:35:00 Seybol d 2021-08-02 2021-08-02 Outpatient MARILYNN BOGGS [id number] [place]nn 14:30:00 14:30:00 ECHO Seybol d 2021-08-02 2021-08-02 Outpatient ISABEL, CHIQUITA CARDENAS [id number] [place]nn 11:30:00 11:30:00 Seybol d 2021-08-01 2021-08-01 Outpatient ISABEL, CHIQUITA CARDENAS [id number] [place]nn 14:30:00 14:30:00 Seybol d 2021-06-24 2021-06-24 Office NIKKI Ross 1.2.240.456 [id number] [place]nn 09:30:00 10:00:00 Visit [facility] 350.1.13.13 Se ybold 1.2.7.2.686 [id number] 2021-06-22 2021-06-22 Outpatient RADIOLOGY, MARILYNN CARDENAS [id number] [place]nn 00:00:00 00:00:00 DEPT Seybol d 2021-06-18 2021-06-18 Outpatient MARILYNN CARDNEAS [id number] [place]nn 00:00:00 00:00:00 Seybol d 2021-06-07 2021-06-07 Outpatient LAB90 MARILYNN CARDENAS [id number] [place]nn 13:30:00 13:30:00 Seybol d 2021-06-07 2021-06-07 Telemedici NIKKI SAMUEL 1.2.840.114 [id number] [place]nn 10:40:00 10:40:00 [facility] 350.1.13.13 Se ybold 1.2.7.2.686 [id number] 2021-06-07 2021-06-07 Outpatient NICOLASAALVAROKEYSHAWN MARILYNN CARDENAS [id number] Mar[place]nn 00:00:00 00:00:00 MD EUGENIO Seybol d 2021-06-06 2021-06-06 Outpatient HoangHUSSAIN [id number] [place]nn 10:30:00 10:30:00 Seybol d 2021-06-06 2021-06-06 Office NIKKI Brush 1.2.840.114 [id number] [place]nn 10:15:00 10:30:00 Visit [facility] 350.1.13.13 Seybold 1.2.7.2.686 [id number] 2021-06-06 2021-06-06 Outpatient MARILYNN CORMIER [id number] [place]nn 00:00:00 00:00:00 RAYMUNDO Sanchez ld 2021-06-06 2021-06-06 Outpatient MARILYNN CARDENAS [id number] [place]nn 00:00:00 00:00:00 Seybol d 2021-06-04 2021-06-04 Outpatient DESIRE LISHA MARILYNN CARDENAS [id number] [place]nn 00:00:00 00:00:00 Seybol d 2021-06-03 2021-06-03 Office NIKKI CARRASCO 1.2.840.114 [id number] [place]nn 10:00:00 10:00:00 Visit [facility] 350.1.13.13 S eybold 1.2.7.2.686 [id number] 2021-06-03 2021-06-03 Outpatient VANDANA MARILYNN CARDENAS [id number] [place]nn 00:00:00 00:00:00 AHMED Seybol d 2021-06-03 2021-06-03 Outpatient MARILYNN CARDENAS [id number] [place]nn 00:00:00 00:00:00 Seybol d 2021-05-22 2021-05-22 Outpatient MARILYNN CARDENAS [id number] [place]nn 11:30:00 11:30:00 Seybol d 2021-05-22 2021-05-22 Outpatient MARILYNN CARDENAS [id number] [place]nn 10:30:00 10:30:00 Seybol d 2021-05-09 2021-05-09 Outpatient MARILYNN CARDENAS [id number] [place] 11:00:00 11:00:00 Seybol d 2021-05-02 2021-05-02 Outpatient ISABELCHIQUITA Day [id number] [place] 14:30:00 14:30:00 Seybol d 2021-05-02 2021-05-02 Office NIKKI BRUSH 1.2.840.114 [id number] [place]nn 09:45:00 09:45:00 Visit [facility] 350.1.13.13 Se ybold 1.2.7.2.686 [id number] 2021-05-01 2021-05-01 Outpatient MARILYNN BRUSH [id number] [place]nn 09:30:00 09:30:00 GERARDO Seybol d 2021-04-25 2021-04-25 Office NIKKI BRUSH 1.2.840.114 [id number] [place]nn 15:45:00 15:45:00 Visit [facility] 350.1.13.13 Se ybold 1.2.7.2.686 [id number] 2021-04-25 2021-04-25 Outpatient DAYSI MILES [id number] [place] 14:50:00 14:50:00 Seybol d 2021-04-25 2021-04-25 Outpatient MARILYNN LU [id number] [place]nn 14:15:00 14:15:00 [id number] Seyb old 2021-04-25 2021-04-25 Outpatient LAB39 MARILYNN CARDENAS [id number] [place]nn 14:00:00 14:00:00 Seybol d 2021-04-25 2021-04-25 Outpatient COREYSHANNON MARILYNN CARDENAS [id number] [place]nn 00:00:00 00:00:00 MARIBEL Seybol d 2021-04-25 2021-04-25 Outpatient BLAYNE MARILYNN CARDENAS [id number] [place]nn 00:00:00 00:00:00 MARIBEL Seybol d 2021-04-23 2021-04-23 Outpatient NANCY, MARILYNN CARDENAS [id number] [place]nn 10:20:00 10:20:00 MESFIN Seybol d 2021-04-22 2021-04-22 Outpatient LAB47 MARILYNN CARDENAS [id number] [place]nn 09:30:00 09:30:00 Seybol d 2021-04-22 2021-04-22 Office MALGORZATA Hamlin 1.2.840.114 [id number] [place]nn 08:30:00 09:15:00 Visit Karly 350.1.13.13 Seybold [facility] 1.2.7.2.686 [id number] 2021-04-19 2021-04-19 Outpatient MARILYNN CARDENAS [id number] [place]nn 00:00:00 00:00:00 Seybol d 2021-04-18 2021-04-18 Office NIKKI Brush 1.2.840.114 [id number] [place]nn 15:30:00 15:45:00 Visit Gerardo RAS 350.1.13.13 Seybold 1.2.7.2.686 [id number] 2021-04-16 2021-04-16 Outpatient LAB90 MARILYNN CARDENAS [id number] [place]nn 08:20:00 08:20:00 Seybol d 2021-04-10 2021-04-10 Outpatient NANCY MARILYNN CARDENAS [id number] [place]nn 00:00:00 00:00:00 MESFIN Seybol d 2021-04-05 2021-04-05 Outpatient MARILYNN CHAVEZ [id number] [place] 00:00:00 00:00:00 MARIBEL Seybol d 2021-04-02 2021-04-02 Outpatient MARILYNN CARDENAS [id number] [place]nn 14:15:00 14:15:00 Seybol d 2021-03-26 2021-03-26 Outpatient LAB02 MARILYNN CARDENAS [id number] [place]nn 14:35:00 14:35:00 Seybol d 2021-03-26 2021-03-26 Outpatient MARILYNN CHAVEZ [id number] [place] 00:00:00 00:00:00 MARIBEL Seybol d 2021-03-25 2021-03-25 Outpatient LAB90 MARILYNN CARDENAS [id number] [place]nn 13:55:00 13:55:00 Seybol d 2021-03-12 2021-03-12 Outpatient BOUBACAR MARILYNN CARDENAS [id number] [place]nn 14:15:00 14:15:00 KARLY Seyb old 2021-03-12 2021-03-12 Telemedici NIKKI Samuel 1.2.840.114 [id number] [place]nn 08:49:04 09:31:35 [facility] 350.1.13.13 Se ybold 1.2.7.2.686 [id number] 2021-03-08 2021-03-08 Office NIKKI Chavez 1.2.840.114 [id number] [place] 11:12:01 11:32:01 Visit [facility] 350.1.13.13 Se ybold 1.2.7.2.686 [id number] 2021-03-04 2021-03-04 Outpatient LAB90 MARILYNN CARDENAS [id number] [place]nn 15:45:00 15:45:00 Seybol d 2021-03-04 2021-03-04 Outpatient MARILYNN CHAVEZ [id number] [place] 00:00:00 00:00:00 MARIBEL Seybol d 2021-03-03 2021-03-03 Outpatient MARILYNN CHAVEZ [id number] [place] 00:00:00 00:00:00 MARIBEL Seybol d 2021-03-01 2021-03-01 Office NIKKI Chavez 1.2.840.114 [id number] [place]nn 10:43:42 11:03:42 Visit [facility] 350.1.13.13 Se ybold 1.2.7.2.686 [id number] 2021-03-01 2021-03-01 Outpatient JOSUÉ MCCANI [id number] [place] 10:30:00 10:30:00 Seybol d 2021-03-01 2021-03-01 Office NIKKI Carrasco 1.2.840.114 [id number] [place]nn 09:49:53 10:04:53 Visit [facility] 350.1.13.13 Seybold 1.2.7.2.686 [id number] 2021-02-25 2021-02-26 Outpatient MELISSA ZHANG Surgery [id number] [facility] 09:42:00 13:53:00 MELLISSA 2021-02-26 2021-02-26 Outpatient MARILYNN CARRASCO [id number] [place] 00:00:00 00:00:00 MELLISSA Snello gareth 2021-02-25 2021-02-25 Anesthesia Dariusz Morrissey [facility] [id number] [facility] 12:17:00 16:10:00 Event Christy Bingham [facility] 2021-02-25 2021-02-25 Surgery Luna [facility] [id number] [facility] 12:00:00 14:32:00 [facility] 2021-02-25 2021-02-25 Outpatient MARILYNN EVERETT [id number] [place] 00:00:00 00:00:00 JARROD Coyne ybold A 2021-02-25 2021-02-25 Travel [facility] [id number] [facility] 00:[facility]00 00:00:00 [facility] 2021-02-23 2021-02-23 Outpatient MARILYNN JANSEN [id number] [place]nn 00:00:00 00:00:00 DEPT Seybol d 2021-02-222021-02-22 Outpatient [facility] [id number] [facility] 12:09:39 23:59:00 2021-02-22 2021-02-22 [facility] [id number] 11:30:00 23:59:00 Encounter [facility] 2021-02-22 2021-02-22 Travel [facility] [id number] [facility] 00:00:00 00:00:00 [facility] 2021-02-21 2021-02-21 Outpatient MARILYNN CARRASCO [id number] [place]nn 10:27:00 10:27:00 MELLISSA servin 2021-02-20 2021-02-20 Office Josué Mccain 1.2.840.114 [id number] Mar[place]nn 13:04:03 14:04:03 Visit [place] 350.1.13.13 Se ybold 1.2.7.2.686 [id number] 2021-02-20 2021-02-20 Outpatient SWAB, [facility] MARILYNN CARDENAS [id number] [place]nn 10:50:00 10:50:00 Seybol d 2021-02-20 2021-02-20 Outpatient [id number]-WHL MARILYNN CARDENAS [id number] [place] 10:50:00 10:50:00 Seybol d 2021-02-20 2021-02-20 Outpatient MARILYNN CARRASCO [id number] [place] 00:00:00 00:00:00 MELLISSA servin 2021-02-20 2021-02-20 Outpatient NAN CARDENAS [id number] [place] 00:00:00 00:00:00 MD EUGENIO Seybol d 2021-02-19 2021-02-19 Office NIKKI Samuel 1.2.840.114 [id number] [place]nn 10:03:12 10:23:12 Visit [facility] 350.1.13.13 Se ybold 1.2.7.2.686 [id number] 2021-02-16 2021-02-16 Outpatient SWAB, [facility] MARILYNN CARDENAS [id number] [place]nn 09:40:00 09:40:00 Seybol d 2021-02-14 2021-02-14 Outpatient LAB39 MARILYNN CARDENAS [id number] [place] 16:45:00 16:45:00 Seybol d 2021-02-14 2021-02-14 Outpatient MAC, EKG- MARILYNN CARDENAS [id number] [place] 16:15:00 16:15:00 Seybol d 2021-02-14 2021-02-14 Outpatient MARILYNN CARDENAS [id number] [place] 14:45:00 14:45:00 Seybol d 2021-02-14 2021-02-14 Outpatient MARILYNN CARRASCO [id number] [place] 00:00:00 00:00:00 YITZCHAK Seybo ld 2021-02-14 2021-02-14 Outpatient MARILYNN CARRASCO [id number] [place] 00:00:00 00:00:00 YITZADELIAK Seybo ld 2021-02-13 2021-02-13 Outpatient LAB39 MARILYNN CARDENAS [id number] [place] 15:20:00 15:20:00 Seybol d 2021-02-13 2021-02-13 Office NIKKI Carrasco 1.2.840.114 [id number] [place] 13:19:24 14:04:24 Visit Mellissa MCGINNIS 350.1.13.13 Seybold 1.2.7.2.686 [id number] 2021-02-11 2021-02-11 Outpatient MARILYNN CARDENAS [id number] [place] 09:00:00 09:00:00 Seybol d 2021-02-07 2021-02-07 Outpatient [id number]-DAM MARILYNN CARDENAS [id number] [place] 12:00:00 12:00:00 Seybol d 2021-02-07 2021-02-07 Outpatient MARILYNN CARDENAS [id number] [place] 09:45:00 09:45:00 Seybol d 2021-02-07 2021-02-07 Outpatient MARILYNN CARRASCO [id number] [place] 00:00:00 00:00:00 YITZCHAK Seybo ld 2021-02-04 2021-02-04 Outpatient TAMMY, JULIETA CARDENAS MARILYNN [id number] [place]nn 10:15:00 10:15:00 Seybol d 2021-02-01 2021-02-01 Outpatient ISABEL, CHIQUITA CARDENAS MARILYNN [id number] [place]nn 11:00:00 11:00:00 Seybol d 2021-01-28 2021-01-28 Outpatient LUNA, MARILYNN MARILYNN [id number] [place] 00:00:00 00:00:00 YITZCHAK Seybo ld 2021-01-28 2021-01-28 Outpatient LUNA, MARILYNN MARILYNN [id number] [place]nn 00:00:00 00:00:00 YITZCHAK Seybo ld 2021-01-28 2021-01-28 Outpatient RADIOLOGY, MARILYNN MARILYNN [id number] Mar[place]nn 00:00:00 00:00:00 DEPT Seybol d 2021-01-25 2021-01-25 Outpatient MARILYNN MARILYNN [id number] [place] 14:30:00 14:30:00 Seybol d 2021-01-25 2021-01-25 Outpatient MARILYNN MARILYNN [id number] [place] 13:30:00 13:30:00 Seybol d 2021-01-25 2021-01-25 Outpatient COVID-PFIZE MARILYNN CARDENAS [id number] [place]nn 11:30:00 11:30:00 R Alvaro ESCOBAR MAIN 2021-01-23 2021-01-23 Outpatient COVID-PFIZE MARILYNN CARDENAS [id number] Mar[place]nn 14:45:00 14:45:00 R BOOSTERAlvaro 2021-01-14 2021-01-14 Outpatient BLUMCHAITANYAT, [place] [facility] [id number] [facility] 12:51:57 13:29:29 JANNET ballesteros of Medicin e 2021-01-11 2021-01-11 Outpatient GRICELDA, [place] [facility] [id number] [facility] 12:55:51 13:40:15 JANNET Bell e of Medicin e 2021-01-10 2021-01-10 Out[place] [facility] [id number] [facility] 12:52:03 13:21:49 JANNET Colleg e of Medicin e 2021-01-09 2021-01-09 Outpatient BLUMHARDT, [facility] [id number] [facility] 12:51:46 13:52:11 JANNET Colleg e of Medicin e 2021-01-08 2021-01-08 Outpatient BLUMHARDT, [facility] [id number] [facility] 12:54:40 13:34:45 JANNET Colleg e of Medicin e 2021-01-07 2021-01-07 Outpatient BLUMHARDT, [facility] [id number] [facility] 12:49:38 13:52:45 JANNET Colleg e of Medicin e 2020-12-07 2020-12-07 Office Reneummagda, [facility] 1.2.840.114 [id number] 09:27:04 11:06:47 Visit Jannet AMBULATOR 350.1.13.21 Y 0.2.7.2.686 [id number] [facility] 2020-12-07 2020-12-07 Office Gricelda, REJI 1.2.840.114 [id number] [facility] 09:27:04 11:06:47 Visit Jannet AMBULATOR 350.1.13.21 College Y 0.2.7.2.686 of [id number] Medi juan carlos 800 e 2020-11-22 2020-11-22 Outpatient MONALISA HOLDEN [id number] Mar[place]nn 00:00:00 00:00:00 Seybol d 2020-08-27 2020-08-27 Office [place] 1.2.840.114 [id number] 12:43:21 13:34:02 Visit Lisa AMBULATOR 350.1.13.21 Anahy Y 0.2.7.2.686 [id number] 2020-08-27 2020-08-27 Office [place] 1.2.840.114 [id number] [facility] 12:43:21 13:34:02 Visit Lisa AMBULATOR 350.1.13.21 College Anahy Y 0.2.7.2.686 of [id number] Medi juan carlos 800 e 2020-07-16 2020-07-18 Emergency ER Mckenna Olguin [facility] [id number] 15:19:00 09:46:00 Alf VazquezRickie [facility] 2020-07-17 2020-07-17 Surgery Annel, [facility] [id number] 15:00:00 16:00:00 [facility] 2020-07-17 2020-07-17 Anesthesia Linder, [facility] [id number] [facility] 14:36:00 14:57:00 Event [facility] 2020-07-16 2020-07-16 Emergency ER [facility] Emergency [id number] [facility] 13:52:00 13:52:00 2020-07-16 2020-07-16 Orders [facility] [id number] 00:00:00 00:00:00 Only [facility] 2020-07-16 2020-07-16 Travel [facility] [id number] [facility] 00:00:00 00:00:00 [facility] 2020-06-21 2020-06-21 Office [place] 1.2.840.114 [id number] 12:49:06 14:31:12 Visit Jannet AMBULATOR 350.1.13.21 Y 0.2.7.2.686 [id number] [facility] 2020-06-21 2020-06-21 Office [place] 1.2.840.114 [id number] [facility] 12:49:06 14:31:12 Visit Jannet AMBULATOR 350.1.13.21 College Y 0.2.7.2.686 of [id number] [facility] juan carlos 800 e 2020-05-24 2020-05-24 Office [place] 1.2.840.114 [id number] 13:34:31 15:16:19 Visit Jannet AMBULATOR 350.1.13.21 Y 0.2.7.2.686 [id number] [facility] 2020-05-24 2020-05-24 Office [place] 1.2.840.114 [id number] [facility] 13:34:31 15:16:19 Visit Jannet AMBULATOR 350.1.13.21 College Y 0.2.7.2.686 of [id number] [facility] 800 e 2020-04-30 2020-04-30 Appointmen FLASH, ROGER Oral & [id number] [place] 11:00:00 11:00:00 t; Russell SANCHEZofkarthik P hysiflakita VIDALES DDS al Surgery ans CHARANJIT SANCHEZ Results Test Description Test Time Test Comments Results Result Comments Source CBC W/PLT COUNT & AUTO DIFFERENTIAL 2022-05-26 13:18:30 Test Item Value Reference Range Interpretation Comme nts WHITE BLOOD CELL COUNT (BEAKER) (test code = 775) 8.0 K/ L 3.5- 10.5 RED BLOOD CELL COUNT (BEAKER) (test code = 761) 2.55 M/ L 4.63-6 .08 L HEMOGLOBIN (BEAKER) (test code = 410) 8.3 GM/DL 13.7-17.5 L HEMATOCRIT (BEAKER) (test code = 411) 25.9 % 40.1-51.0 L MEAN CORPUSCULAR VOLUME (BEAKER) (test code = 753) 102 fL 79- 92 H MEAN CORPUSCULAR HEMOGLOBIN (BEAKER) (test code = 751) 32.5 pg 25.7-32.2 H MEAN CORPUSCULAR HEMOGLOBIN CONC (BEAKER) (test code = 752) 32.0 GM/DL 32.3-36.5 L RED CELL DISTRIBUTION WIDTH (BEAKER) (test code = 412) 16.8 % 11.6-14.4 H PLATELET COUNT (BEAKER) (test code = 756) 159 K/CU MM 150-450 MEAN PLATELET VOLUME (BEAKER) (test code = 754) 11.4 fL 9.4-12 .4 NUCLEATED RED BLOOD CELLS (BEAKER) (test code = 413) 0 /100 WBC 0 -0 NEUTROPHILS RELATIVE PERCENT (BEAKER) (test code = 429) 78 % LYMPHOCYTES RELATIVE PERCENT (BEAKER) (test code = 430) 7 % MONOCYTES RELATIVE PERCENT (BEAKER) (test code = 431) 10 % EOSINOPHILS RELATIVE PERCENT (BEAKER) (test code = 432) 4 % BASOPHILS RELATIVE PERCENT (BEAKER) (test code = 437) 0 % NEUTROPHILS ABSOLUTE COUNT (BEAKER) (test code = 670) 6.27 K/ L 1.78-5.38 H LYMPHOCYTES ABSOLUTE COUNT (BEAKER) (test code = 414) 0.57 K/ L 1.32-3.57 L MONOCYTES ABSOLUTE COUNT (BEAKER) (test code = 415) 0.83 K/ L 0. 30-0.82 H EOSINOPHILS ABSOLUTE COUNT (BEAKER) (test code = 416) 0.32 K/ L 0.04-0.54 BASOPHILS ABSOLUTE COUNT (BEAKER) (test code = 417) 0.02 K/ L 0. 01-0.08 IMMATURE GRANULOCYTES-RELATIVE PERCENT (BEAKER) (test code 0.20 % 0.00-1.00 = 2801) BLOOD [id number] 23:00:54 Test Item Value Reference Range Interpretation Comments CULTURE (BEAKER) (test No growth in 5 days code = 1095) The specimen volume collected for this blood culture was below the optimum (10 mL per bottle or 20 mL total). Use of lower volumes may adversely affect recovery and/or detection times of some organisms.BLOOD [id number] 23:00:53 Test Item Value Reference Range Interpretation Comments CULTURE (BEAKER) (test No growth in 5 days code = 1095) The specimen volume collected for this blood culture was below the optimum (10 mL per bottle or 20 mL total). Use of lower volumes may adversely affect recovery and/or detection times of some organisms.CBC (HEMOGRAM ONLY)2022-05-25 06:18:07 Test Item Value Reference Range Interpretation Comments WHITE BLOOD CELL COUNT (BEAKER) 9.0 K/ L 3.5-10.5 (test code = 775) RED BLOOD CELL COUNT (BEAKER) 2.65 M/ L 4.63-6.08 L (test code = 761) HEMOGLOBIN (BEAKER) (test code = 8.8 GM/DL 13.7-17.5 L 410) HEMATOCRIT (BEAKER) (test code = 27.2 % 40.1-51.0 L 411) MEAN CORPUSCULAR VOLUME (BEAKER) 103 fL 79-92 H (test code = 753) MEAN CORPUSCULAR HEMOGLOBIN 33.2 pg 25.7-32.2 H (BEAKER) (test code = 751) MEAN CORPUSCULAR HEMOGLOBIN CONC 32.4 GM/DL 32.3-36.5 (BEAKER) (test code = 752) RED CELL DISTRIBUTION WIDTH 17.1 % 11.6-14.4 H (BEAKER) (test code = 412) PLATELET COUNT (BEAKER) (test 156 K/CU MM 150-450 code = 756) MEAN PLATELET VOLUME (BEAKER) 11.2 fL 9.4-12.4 (test code = 754) NUCLEATED RED BLOOD CELLS 0 /100 WBC 0-0 (BEAKER) (test code = 413) CBC W/PLT COUNT & AUTO [id number] 18:37:56 Test Item Value Reference Range Interpretation Comments WHITE BLOOD CELL COUNT (BEAKER) 8.5 K/ L 3.5-10.5 (test code = 775) RED BLOOD CELL COUNT (BEAKER) 2.78 M/ L 4.63-6.08 L (test code = 761) HEMOGLOBIN (BEAKER) (test code = 9.1 GM/DL 13.7-17.5 L 410) HEMATOCRIT (BEAKER) (test code = 28.5 % 40.1-51.0 L 411) MEAN CORPUSCULAR VOLUME (BEAKER) 103 fL 79-92 H (test code = 753) MEAN CORPUSCULAR HEMOGLOBIN 32.7 pg 25.7-32.2 H (BEAKER) (test code = 751) MEAN CORPUSCULAR HEMOGLOBIN CONC 31.9 GM/DL 32.3-36.5 L (BEAKER) (test code = 752) RED CELL DISTRIBUTION WIDTH 16.7 % 11.6-14.4 H (BEAKER) (test code = 412) PLATELET COUNT (BEAKER) (test 157 K/CU MM 150-450 code = 756) MEAN PLATELET VOLUME (BEAKER) 11.0 fL 9.4-12.4 (test code = 754) NUCLEATED RED BLOOD CELLS 0 /100 WBC 0-0 (BEAKER) (test code = 413) NEUTROPHILS RELATIVE PERCENT 76 % (BEAKER) (test code = 429) LYMPHOCYTES RELATIVE PERCENT 8 % (BEAKER) (test code = 430) MONOCYTES RELATIVE PERCENT 10 % (BEAKER) (test code = 431) EOSINOPHILS RELATIVE PERCENT 6 % (BEAKER) (test code = 432) BASOPHILS RELATIVE PERCENT 0 % (BEAKER) (test code = 437) NEUTROPHILS ABSOLUTE COUNT 6.49 K/ L 1.78-5.38 H (BEAKER) (test code = 670) LYMPHOCYTES ABSOLUTE COUNT 0.64 K/ L 1.32-3.57 L (BEAKER) (test code = 414) MONOCYTES ABSOLUTE COUNT (BEAKER) 0.85 K/ L 0.30-0.82 H (test code = 415) EOSINOPHILS ABSOLUTE COUNT 0.50 K/ L 0.04-0.54 (BEAKER) (test code = 416) BASOPHILS ABSOLUTE COUNT (BEAKER) 0.02 K/ L 0.01-0.08 (test code = 417) IMMATURE GRANULOCYTES-RELATIVE 0.40 % 0.00-1.00 PERCENT (BEAKER) (test code = 2801) CBC (HEMOGRAM ONLY)2022-05-24 06:16:05 Test Item Value Reference Range Interpretation Comments WHITE BLOOD CELL COUNT (BEAKER) 6.7 K/ L 3.5-10.5 (test code = 775) RED BLOOD CELL COUNT (BEAKER) 2.18 M/ L 4.63-6.08 L (test code = 761) HEMOGLOBIN (BEAKER) (test code = 7.2 GM/DL 13.7-17.5 L 410) HEMATOCRIT (BEAKER) (test code = 22.9 % 40.1-51.0 L 411) MEAN CORPUSCULAR VOLUME (BEAKER) 105 fL 79-92 H (test code = 753) MEAN CORPUSCULAR HEMOGLOBIN 33.0 pg 25.7-32.2 H (BEAKER) (test code = 751) MEAN CORPUSCULAR HEMOGLOBIN CONC 31.4 GM/DL 32.3-36.5 L (BEAKER) (test code = 752) RED CELL DISTRIBUTION WIDTH 16.4 % 11.6-14.4 H (BEAKER) (test code = 412) PLATELET COUNT (BEAKER) (test 142 K/CU MM 150-450 L code = 756) MEAN PLATELET VOLUME (BEAKER) 11.3 fL 9.4-12.4 (test code = 754) NUCLEATED RED BLOOD CELLS 0 /100 WBC 0-0 (BEAKER) (test code = 413) [id number] 12:40:38 Test Item Value Reference Range Interpretation Comments PARTIAL THROMBOPLASTIN TIME 83.7 seconds 22.5-36.0 H (BEAKER) (test code = 760) SPUTUM CULTURE + GRAM [id number] 10:40:34 Test Item Value Reference Range Interpretation Comments CULTURE (BEAKER) 4+ Normal respiratory (test code = 1095) korey present GRAM STAIN RESULT 2+ White blood cells (BEAKER) (test code = seen 1123) GRAM STAIN RESULT 10-15 epithelial cells (BEAKER) (test code = 215543) GRAM STAIN RESULT 2+ gram negative rods (BEAKER) (test code = 617438) GRAM STAIN RESULT 2+ gram positive rods (BEAKER) (test code = 972949) GRAM STAIN RESULT 1+ gram positive cocci (BEAKER) (test code = in clusters 647131) BASIC METABOLIC [id number] 04:27:30 Test Item Value Reference Range Interpretation Comments SODIUM (BEAKER) 137 meq/L 136-145 (test code = 381) POTASSIUM 3.7 meq/L 3.5-5.1 (BEAKER) (test code = 379) CHLORIDE (BEAKER) 108 meq/L 98-107 H (test code = 382) CO2 (BEAKER) 22 meq/L 22-29 (test code = 355) BLOOD UREA 17 mg/dL 7-21 NITROGEN (BEAKER) (test code = 354) CREATININE 0.84 mg/dL 0.57-1.25 (BEAKER) (test code = 358) GLUCOSE RANDOM 104 mg/dL 70-105 (BEAKER) (test code = 652) CALCIUM (BEAKER) 8.4 mg/dL 8.4-10.2 (test code = 697) EGFR (BEAKER) 92 Interpretatio n of eGFR (test code = mL/min/1.73 values Stage De scription 1092) sq m Result G1 Beth l or high >=90 G2 Mildly decreased 60-89 G3a Mildl y to moderately 45-5 9 G3b Moderately to s everely 30-44 G4 Severl y decreased 15-29 G5 Kidney failure <15Reported eGF R is based on the CKD-EPI 2020 equation that d oes not use a race coefficientEsti mated GFR is not as accur ate as Creatinine Yana aguilar in predicting glom erular filtration rate . Estimated GFR is not appl icable for dialysis patien ts Section Gang ID - [id number] 04:10:12 Test Item Value Reference Range Interpretation Comments PARTIAL THROMBOPLASTIN TIME 95.8 seconds 22.5-36.0 H (BEAKER) (test code = 760) CBC W/PLT COUNT & AUTO [id number] 03:54:51 Test Item Value Reference Range Interpretation Comments WHITE BLOOD CELL COUNT (BEAKER) 6.5 K/ L 3.5-10.5 (test code = 775) RED BLOOD CELL COUNT (BEAKER) 2.17 M/ L 4.63-6.08 L (test code = 761) HEMOGLOBIN (BEAKER) (test code = 7.1 GM/DL 13.7-17.5 L 410) HEMATOCRIT (BEAKER) (test code = 22.4 % 40.1-51.0 L 411) MEAN CORPUSCULAR VOLUME (BEAKER) 103 fL 79-92 H (test code = 753) MEAN CORPUSCULAR HEMOGLOBIN 32.7 pg 25.7-32.2 H (BEAKER) (test code = 751) MEAN CORPUSCULAR HEMOGLOBIN CONC 31.7 GM/DL 32.3-36.5 L (BEAKER) (test code = 752) RED CELL DISTRIBUTION WIDTH 15.9 % 11.6-14.4 H (BEAKER) (test code = 412) PLATELET COUNT (BEAKER) (test 144 K/CU MM 150-450 L code = 756) MEAN PLATELET VOLUME (BEAKER) 10.8 fL 9.4-12.4 (test code = 754) NUCLEATED RED BLOOD CELLS 0 /100 WBC 0-0 (BEAKER) (test code = 413) NEUTROPHILS RELATIVE PERCENT 72 % (BEAKER) (test code = 429) LYMPHOCYTES RELATIVE PERCENT 9 % (BEAKER) (test code = 430) MONOCYTES RELATIVE PERCENT 12 % (BEAKER) (test code = 431) EOSINOPHILS RELATIVE PERCENT 6 % (BEAKER) (test code = 432) BASOPHILS RELATIVE PERCENT 0 % (BEAKER) (test code = 437) NEUTROPHILS ABSOLUTE COUNT 4.70 K/ L 1.78-5.38 (BEAKER) (test code = 670) LYMPHOCYTES ABSOLUTE COUNT 0.60 K/ L 1.32-3.57 L (BEAKER) (test code = 414) MONOCYTES ABSOLUTE COUNT (BEAKER) 0.81 K/ L 0.30-0.82 (test code = 415) EOSINOPHILS ABSOLUTE COUNT 0.37 K/ L 0.04-0.54 (BEAKER) (test code = 416) BASOPHILS ABSOLUTE COUNT (BEAKER) 0.01 K/ L 0.01-0.08 (test code = 417) IMMATURE GRANULOCYTES-RELATIVE 0.50 % 0.00-1.00 PERCENT (BEAKER) (test code = 2801) RAD, CHEST, 1 VIEW, NON [id number] 23:33:00Reason for exam:- >hypoxiaShould this be performed at the bedside?->Yes [facility] 1945 Sex: MFINAL REPORT EXAM: Chest one view COMPARISON: May 20, 2022 CLINICAL HISTORY: Hypoxia FINDINGS: The right hemidiaphragm is again elevated. The cardiac size is mildly enlarged. There is no evidence of pulmonary consolidation, pleural effusion, or pneumothorax. The left internal jugular chest port appears unchanged in position. The regional osseous structures are unremarkable. Signed:Kevan Lynch MDReport Verified Date/Time: 05/22/2022 23:33:48 [id number] 19:58:47 Test Item Value Reference Range Interpretation Comments PARTIAL THROMBOPLASTIN TIME 62.8 seconds 22.5-36.0 H (BEAKER) (test code = 760) [id number] 13:11:10 Test Item Value Reference Range Interpretation Comments PARTIAL THROMBOPLASTIN TIME 104.1 seconds 22.5-36.0 H (BEAKER) (test code = 760) URINE [id number] 10:43:48 Test Item Value Reference Range Interpretation Comments CULTURE (BEAKER) (test 20-29,000 col/mL skin code = 1095) korey BASIC METABOLIC [id number] 05:08:10 Test Item Value Reference Range Interpretation Comments SODIUM (BEAKER) 134 meq/L 136-145 L (test code = 381) POTASSIUM 3.4 meq/L 3.5-5.1 L (BEAKER) (test code = 379) CHLORIDE (BEAKER) 104 meq/L 98-107 (test code = 382) CO2 (BEAKER) 22 meq/L 22-29 (test code = 355) BLOOD UREA 21 mg/dL 7-21 NITROGEN (BEAKER) (test code = 354) CREATININE 0.89 mg/dL 0.57-1.25 (BEAKER) (test code = 358) GLUCOSE RANDOM 97 mg/dL 70-105 (BEAKER) (test code = 652) CALCIUM (BEAKER) 8.8 mg/dL 8.4-10.2 (test code = 697) EGFR (BEAKER) 91 Interpretatio n of eGFR (test code = mL/min/1.73 values Stage De scription 1092) sq m Result G1 Beth l or high >=90 G2 Mildly decreased 60-89 G3a Mildl y to moderately 45-5 9 G3b Moderately to s everely 30-44 G4 Severl y decreased 15-29 G5 Kidney failure <15Reported eGF R is based on the CKD-EPI 1 equation that d oes not use a race coefficientEsti mated GFR is not as accur ate as Creatinine Yana jeff in predicting glom erular filtration rate . Estimated GFR is not appl icable for dialysis patien ts Section Gang ID - [id number] 05:08:10 Test Item Value Reference Range Interpretation Comments MAGNESIUM (BEAKER) (test code = 1.8 mg/dL 1.6-2.6 627) Section Gang ID - [id number] 05:00:09 Test Item Value Reference Range Interpretation Comments PARTIAL THROMBOPLASTIN TIME 96.7 seconds 22.5-36.0 H (BEAKER) (test code = 760) CBC W/PLT COUNT & AUTO [id number] 04:40:37 Test Item Value Reference Range Interpretation Comments WHITE BLOOD CELL COUNT (BEAKER) 6.1 K/ L 3.5-10.5 (test code = 775) RED BLOOD CELL COUNT (BEAKER) 2.40 M/ L 4.63-6.08 L (test code = 761) HEMOGLOBIN (BEAKER) (test code = 7.9 GM/DL 13.7-17.5 L 410) HEMATOCRIT (BEAKER) (test code = 25.1 % 40.1-51.0 L 411) MEAN CORPUSCULAR VOLUME (BEAKER) 105 fL 79-92 H (test code = 753) MEAN CORPUSCULAR HEMOGLOBIN 32.9 pg 25.7-32.2 H (BEAKER) (test code = 751) MEAN CORPUSCULAR HEMOGLOBIN CONC 31.5 GM/DL 32.3-36.5 L (BEAKER) (test code = 752) RED CELL DISTRIBUTION WIDTH 16.0 % 11.6-14.4 H (BEAKER) (test code = 412) PLATELET COUNT (BEAKER) (test 144 K/CU MM 150-450 L code = 756) MEAN PLATELET VOLUME (BEAKER) 10.8 fL 9.4-12.4 (test code = 754) NUCLEATED RED BLOOD CELLS 0 /100 WBC 0-0 (BEAKER) (test code = 413) NEUTROPHILS RELATIVE PERCENT 67 % (BEAKER) (test code = 429) LYMPHOCYTES RELATIVE PERCENT 10 % (BEAKER) (test code = 430) MONOCYTES RELATIVE PERCENT 14 % (BEAKER) (test code = 431) EOSINOPHILS RELATIVE PERCENT 9 % (BEAKER) (test code = 432) BASOPHILS RELATIVE PERCENT 0 % (BEAKER) (test code = 437) NEUTROPHILS ABSOLUTE COUNT 4.09 K/ L 1.78-5.38 (BEAKER) (test code = 670) LYMPHOCYTES ABSOLUTE COUNT 0.64 K/ L 1.32-3.57 L (BEAKER) (test code = 414) MONOCYTES ABSOLUTE COUNT (BEAKER) 0.83 K/ L 0.30-0.82 H (test code = 415) EOSINOPHILS ABSOLUTE COUNT 0.54 K/ L 0.04-0.54 (BEAKER) (test code = 416) BASOPHILS ABSOLUTE COUNT (BEAKER) 0.02 K/ L 0.01-0.08 (test code = 417) IMMATURE GRANULOCYTES-RELATIVE 0.20 % 0.00-1.00 PERCENT (BEAKER) (test code = 2801) [id number] 21:03:43 Test Item Value Reference Range Interpretation Comments PARTIAL THROMBOPLASTIN TIME 55.7 seconds 22.5-36.0 H (BEAKER) (test code = 760) [id number] 13:43:59 Test Item Value Reference Range Interpretation Comments PARTIAL THROMBOPLASTIN TIME 62.9 seconds 22.5-36.0 H (BEAKER) (test code = 760) [id number] 06:29:40 Test Item Value Reference Range Interpretation Comments PARTIAL THROMBOPLASTIN TIME 47.8 seconds 22.5-36.0 H (BEAKER) (test code = 760) CBC (HEMOGRAM ONLY)2022-05-21 06:28:18 Test Item Value Reference Range Interpretation Comments WHITE BLOOD CELL COUNT (BEAKER) 8.4 K/ L 3.5-10.5 (test code = 775) RED BLOOD CELL COUNT (BEAKER) 2.35 M/ L 4.63-6.08 L (test code = 761) HEMOGLOBIN (BEAKER) (test code = 7.8 GM/DL 13.7-17.5 L 410) HEMATOCRIT (BEAKER) (test code = 24.0 % 40.1-51.0 L 411) MEAN CORPUSCULAR VOLUME (BEAKER) 102 fL 79-92 H (test code = 753) MEAN CORPUSCULAR HEMOGLOBIN 33.2 pg 25.7-32.2 H (BEAKER) (test code = 751) MEAN CORPUSCULAR HEMOGLOBIN CONC 32.5 GM/DL 32.3-36.5 (BEAKER) (test code = 752) RED CELL DISTRIBUTION WIDTH 16.0 % 11.6-14.4 H (BEAKER) (test code = 412) PLATELET COUNT (BEAKER) (test 141 K/CU MM 150-450 L code = 756) MEAN PLATELET VOLUME (BEAKER) 10.9 fL 9.4-12.4 (test code = 754) NUCLEATED RED BLOOD CELLS 0 /100 WBC 0-0 (BEAKER) (test code = 413) HIGH SENSITIVITY TROPONIN [id number] 03:25:32 Test Item Value Reference Range Interpretation Comments HIGH SENSITIVITY 1060 pg/ml See_Comment HH [Automated message] TROPONIN I (test code The sy stem which = [id number]) generated this result transmitted ref erence range: <=35. Th e reference range was not used to int erpret this result as normal/abnormal . Section Gang ID - RAYRAY GThe EXECUTIVE LEGAL SECRETARY STAT High Sensitivity Troponin-I results should be used in conjunction with other diagnostic information such as ECG, clinical observations and information, and patient symptoms to aid in the diagnosis of AR.TSH/FREE T4 IF [id number] 03:04:10 Test Item Value Reference Range Interpretation Comments THYROID STIMULATING HORMONE 2.628 uIU/mL 0.350-4.940 (BEAKER) (test code = 772) Section Gang ID - RAYRAY [id number] 02:53:07 Test Item Value Reference Range Interpretation Comments PROCALCITONIN (BEAKER) (test code 0.29 ng/mL <0.05 H = 3036) SEPSIS RISK (ng/mL)Low: 0.05-0.50Intermediate: 0.51-2.00High: >=2.01BASIC METABOLIC [id number] 02:43:05 Test Item Value Reference Range Interpretation Comments SODIUM (BEAKER) 132 meq/L 136-145 L (test code = 381) POTASSIUM 4.0 meq/L 3.5-5.1 Specimen slight ly (BEAKER) (test hemolyzed code = 379) CHLORIDE (BEAKER) 103 meq/L 98-107 (test code = 382) CO2 (BEAKER) 19 meq/L 22-29 L (test code = 355) BLOOD UREA 30 mg/dL 7-21 H NITROGEN (BEAKER) (test code = 354) CREATININE 0.98 mg/dL 0.57-1.25 Specimen slight ly (BEAKER) (test hemolyzed code = 358) GLUCOSE RANDOM 90 mg/dL 70-105 (BEAKER) (test code = 652) CALCIUM (BEAKER) 8.7 mg/dL 8.4-10.2 (test code = 697) EGFR (BEAKER) 82 Interpretatio n of eGFR (test code = mL/min/1.73 values Stage De scription 1092) sq m Result G1 Beth l or high >=90 G2 Mildly decreased 60-89 G3a Mildl y to moderately 45-5 9 G3b Moderately to s everely 30-44 G4 Severl y decreased 15-29 G5 Kidney failure <15Reported eGF R is based on the CKD-EPI 2020 equation that d oes not use a race coefficientEsti mated GFR is not as accur ate as Creatinine Yana jeff in predicting glom erular filtration rate . Estimated GFR is not appl icable for dialysis patien ts Section Gang ID - RAYRAY [id number] 02:43:04 Test Item Value Reference Range Interpretation Comments MAGNESIUM (BEAKER) 1.8 mg/dL 1.6-2.6 Specimen slightly (test code = 627) hemolyzed Section Gang ID - RAYRAY GCBC W/PLT COUNT & AUTO [id number] 02:34:01 Test Item Value Reference Range Interpretation Comments WHITE BLOOD CELL COUNT (BEAKER) 7.7 K/ L 3.5-10.5 (test code = 775) RED BLOOD CELL COUNT (BEAKER) 2.25 M/ L 4.63-6.08 L (test code = 761) HEMOGLOBIN (BEAKER) (test code = 7.4 GM/DL 13.7-17.5 L 410) HEMATOCRIT (BEAKER) (test code = 22.8 % 40.1-51.0 L 411) MEAN CORPUSCULAR VOLUME (BEAKER) 101 fL 79-92 H (test code = 753) MEAN CORPUSCULAR HEMOGLOBIN 32.9 pg 25.7-32.2 H (BEAKER) (test code = 751) MEAN CORPUSCULAR HEMOGLOBIN CONC 32.5 GM/DL 32.3-36.5 (BEAKER) (test code = 752) RED CELL DISTRIBUTION WIDTH 16.0 % 11.6-14.4 H (BEAKER) (test code = 412) PLATELET COUNT (BEAKER) (test 140 K/CU MM 150-450 L code = 756) MEAN PLATELET VOLUME (BEAKER) 11.0 fL 9.4-12.4 (test code = 754) NUCLEATED RED BLOOD CELLS 0 /100 WBC 0-0 (BEAKER) (test code = 413) NEUTROPHILS RELATIVE PERCENT 72 % (BEAKER) (test code = 429) LYMPHOCYTES RELATIVE PERCENT 9 % (BEAKER) (test code = 430) MONOCYTES RELATIVE PERCENT 13 % (BEAKER) (test code = 431) EOSINOPHILS RELATIVE PERCENT 5 % (BEAKER) (test code = 432) BASOPHILS RELATIVE PERCENT 0 % (BEAKER) (test code = 437) NEUTROPHILS ABSOLUTE COUNT 5.54 K/ L 1.78-5.38 H (BEAKER) (test code = 670) LYMPHOCYTES ABSOLUTE COUNT 0.70 K/ L 1.32-3.57 L (BEAKER) (test code = 414) MONOCYTES ABSOLUTE COUNT (BEAKER) 1.01 K/ L 0.30-0.82 H (test code = 415) EOSINOPHILS ABSOLUTE COUNT 0.40 K/ L 0.04-0.54 (BEAKER) (test code = 416) BASOPHILS ABSOLUTE COUNT (BEAKER) 0.02 K/ L 0.01-0.08 (test code = 417) IMMATURE GRANULOCYTES-RELATIVE 0.30 % 0.00-1.00 PERCENT (BEAKER) (test code = 2801) PLATELET [id number] 02:19:13 Test Item Value Reference Range Interpretation Comments PLATELET COUNT (BEAKER) (test 136 K/CU MM 150-450 L code = 756) Section Gang ID - [id number] SENSITIVITY TROPONIN [id number] 21:59:28 Test Item Value Reference Range Interpretation Comments HIGH SENSITIVITY 1119 pg/ml See_Comment HH [Automated message] TROPONIN I (test code The sy stem which = [id number]) generated this result transmitted ref erence range: <=35. Th e reference range was not used to int erpret this result as normal/abnormal . Section Gang ID - BSThe EXECUTIVE LEGAL SECRETARY STAT High Sensitivity Troponin-I results should be used in conjunctionwith other diagnostic information such as ECG, clinical observations and information, and patient symptoms to aid in the diagnosis of AR.[id number] 21:46:46 Test Item Value Reference Range Interpretation Comments PARTIAL THROMBOPLASTIN TIME 30.0 seconds 22.5-36.0 (BEAKER) (test code = 760) SARS-COV2/RT-PCR ([facility])2022-05-20 21:41:18 Test Item Value Reference Range Interpretation Comments SARS-COV2/RT-PCR Negative Negative The SARS-Co V-2 target (test code = nucleic acids a re not [id number]) detected in thi s specimen. Negative result s do not preclude SARS-C oV-2 infection and s hould not be used as the xuan e basis for patient managem ent decisions. Nega tive results must be combine d with clinical observ ations, patient history , and epidemiological information. A false negativ e result may occur if a spec imen is improperly isai ected, transported or handled. This SARS CoV-2 test is a rapid, real-time RT-PC R test intended for th e qualitative detection of nu cleic acid from SARS-CoV-2 in a nasopharyngeal swab specimen collected from individuals suspected of CO VID-19 by their healthcar e provider. This test has been authorized by FDA under an EUA for use by authorized laboratories. This test is only authorized for the duration of the declaration that circumstances exist justifying the authorization of emergency use of in vitro diagnostic tests for detection and/or diagnosis of COVID-19 under Section 564(b)(1) of the Federal Food, Drug and Cosmetic Act, 21 U.S.C. 360bbb-3(b)(1), unless the authorization is terminated or revoked sooner. Fact Sheet for Healthcare Providers: https://www.Vedic[employer] m/Documents/Xpert%20Xpress%20SARS%20CoV-2/Fact%20Sheets/3023802%35CNSW-ICE-7%20 HEALTHCARE%20PROVIDERS%20FACT%20SHEET.pdf Fact Sheet for Healthcare Patients: https://www.Aniika/Documents/Xpert%20Xp ress%20SARS%20CoV-2/Fact%20Sheets/3023801%67OUIJ-JSJ-5%20PATIENT%20FACT%20SHEET .pdfHIGH SENSITIVITY TROPONIN [id number] 19:54:54 Test Item Value Reference Range Interpretation Comments HIGH SENSITIVITY 748 pg/ml See_Comment HH [Automated message] TROPONIN I (test code The sy stem which = [id number]) generated this result transmitted ref erence range: <=35. Th e reference range was not used to int erpret this result as normal/abnormal . Section Gang ID - BSThe EXECUTIVE LEGAL SECRETARY STAT High Sensitivity Troponin-I results should be used in conjunctionwith other diagnostic information such as ECG, clinical observations and information, and patient symptoms to aid in the diagnosis of AR.CBC WITH [id number] 17:47:33 Test Item Value Reference Range Interpretation Comments WBC (test code = 6690-2) 8.8 10*3/uL 3.6-12.5 Red Blood Cell (test code = 2.52 10*6/uL 4.14-5.80 L 789-8) Hemoglobin (test code = 8.5 g/dL 12.6-17.7 L [id number]) Hematocrit (test code = 25.9 % 37.5-51.0 L 8713066944) MCV (test code = 787-2) 102.8 fL 79.0-97.0 H MCH (test code = 785-6) 33.7 pg 26.6-33.0 H MCHC (test code = 1083892120) 32.8 g/dL 31.5-35.7 RDW-CV (test code = 788-0) 15.9 % 11.6-15.4 H Platelets (test code = 777-3) 158 10*3/uL 150-450 Neutrophils (test code = 770-8) 81 % Not estab. Lymphs (test code = 736-9) 7 % Not estab. Monocytes (test code = 5905-5) 11 % Not estab. EOS (test code = 713-8) 0.8 % Not estab. BASOS (test code = 706-2) 0.1 % Not estab. Immature Granulocytes (test code 0.2 % Not estab. = 94908-0) Neutrophils Absolute (test code 7.13 10*3/uL 1.40-7.00 H = 5719998983) Lymphs Absolute (test code = 0.63 10*3/uL 0.70-3.10 L 8625279484) Monocytes Absolute (test code = 0.94 10*3/uL 0.10-0.90 H 5773127976) EOS Absolute (test code = 0.07 10*3/uL 0.00-0.40 7292978096) Baso Absolute (test code = 0.01 10*3/uL 0.00-0.20 7406388298) Immature Grans Abs (test code = 0.02 10*3/uL 0.00-0.10 2425790724) Lab Interpretation (test code = Abnormal 96286-3) Marilynn Matta - ExternalRAD, CHEST, 1 VIEW, NON [id number] 17:08:00Reason for exam:->TACHYCARDIAShould this be performed at the bedside?->Yes [facility] 1945 Sex: MFINAL REPORT TECHNIQUE: Frontal view of the chest. INDICATION: TACHYCARDIA. COMPARISON: 07/16/2020. FINDINGS: LINES/TUBES: Left IJ port with catheter tip projecting over the right atrium,new since the prior examination. HEART AND MEDIASTINUM: Cardiomediastinal contour is stable. Prior median sternotomy and CABG. LUNGS: Multiple small calcified granulomata, as before. No consolidation or pulmonary edema. PLEURA: No pneumothorax. No significant pleural effusion. SOFT TISSUES AND BONES: Unremarkable. IMPRESSION:No acute cardiopulmonary process. Signed: Patrice Reyes MDRort Verified Date/Time: 05/20/2022 17:08:57 HIGH SENSITIVITY TROPONIN [id number] 16:33:37 Test Item Value Reference Range Interpretation Comments HIGH SENSITIVITY 143 pg/ml See_Comment H [Automated message] TROPONIN I (test code The sy stem which = [id number]) generated this result transmitted ref erence range: <=35. Th e reference range was not used to int erpret this result as normal/abnormal . Section Gang ID - BSThe EXECUTIVE LEGAL SECRETARY STAT High Sensitivity Troponin-I results should be used in conjunctionwith other diagnostic information such as ECG, clinical observations and information, and patient symptoms to aid in the diagnosis of AR.COMPREHENSIVE METABOLIC [id number] 16:29:36 Test Item Value Reference Range Interpretation Comments TOTAL PROTEIN 6.6 gm/dL 6.0-8.3 (BEAKER) (test code = 770) ALBUMIN (BEAKER) 3.4 g/dL 3.5-5.0 L (test code = 1145) ALKALINE 67 U/L 40-150 PHOSPHATASE (BEAKER) (test code = 346) BILIRUBIN TOTAL 0.3 mg/dL 0.2-1.2 (BEAKER) (test code = 377) SODIUM (BEAKER) 134 meq/L 136-145 L (test code = 381) POTASSIUM (BEAKER) 3.3 meq/L 3.5-5.1 L (test code = 379) CHLORIDE (BEAKER) 100 meq/L 98-107 (test code = 382) CO2 (BEAKER) (test 25 meq/L 22-29 code = 355) BLOOD UREA 37 mg/dL 7-21 H NITROGEN (BEAKER) (test code = 354) CREATININE 1.04 mg/dL 0.57-1.25 (BEAKER) (test code = 358) GLUCOSE RANDOM 95 mg/dL 70-105 (BEAKER) (test code = 652) CALCIUM (BEAKER) 9.1 mg/dL 8.4-10.2 (test code = 697) AST (SGOT) 35 U/L 5-34 H (BEAKER) (test code = 353) ALT (SGPT) 36 U/L 6-55 (BEAKER) (test code = 347) EGFR (BEAKER) 76 Interpretatio n of eGFR (test code = 1092) mL/min/1.[address] age Description sq m Result G1 Beth l or high >=90 G2 Mildly decreased 60-89 G3a Mildl y to moderately 45-5 9 G3b Moderately to s everely 30-44 G4 Severl y decreased 15-29 G5 Kidney failure <15Reported eGF R is based on the CKD-EPI 1 equation that d oes not use a race coefficientEsti mated GFR is not as accur ate as Creatinine Yana jeff in predicting glom erular filtration rate . Estimated GFR is not appl icable for dialysis patien ts Section Gang ID - [id number] 16:29:36 Test Item Value Reference Range Interpretation Comments MAGNESIUM (BEAKER) (test code = 2.0 mg/dL 1.6-2.6 627) Section Gang ID - [id number] 16:29:36 Test Item Value Reference Range Interpretation Comments PHOSPHORUS (BEAKER) (test code = 3.3 mg/dL 2.3-4.7 604) Section Gang ID - BSPROTHROMBIN TIME/[id number] 16:20:48 Test Item Value Reference Range Interpretation Comments PROTIME (BEAKER) 14.5 seconds 11.9-14.2 H (test code = 759) INR (BEAKER) (test 1.20 See_Comment [Automat ed message] code = 370) The system [employer] generated this result transmitted ref erence range: <=5.90. The reference range was not used to int erpret this result as normal/abnormal . RECOMMENDED COUMADIN/WARFARIN INR THERAPY RANGESSTANDARD DOSE: 2.0 - 3.0 Includes: PROPHYLAXIS for venous thrombosis, systemic embolization; TREATMENT for venous thrombosis and/or pulmonary embolus.HIGH RISK: Target INR is 2.5-3.5 for patients with mechanical heart valves.CBC W/PLT COUNT & AUTO [id number] 16:12:27 Test Item Value Reference Range Interpretation Comments WHITE BLOOD CELL COUNT (BEAKER) 6.5 K/ L 3.5-10.5 (test code = 775) RED BLOOD CELL COUNT (BEAKER) 2.52 M/ L 4.63-6.08 L (test code = 761) HEMOGLOBIN (BEAKER) (test code = 8.3 GM/DL 13.7-17.5 L 410) HEMATOCRIT (BEAKER) (test code = 26.1 % 40.1-51.0 L 411) MEAN CORPUSCULAR VOLUME (BEAKER) 104 fL 79-92 H (test code = 753) MEAN CORPUSCULAR HEMOGLOBIN 32.9 pg 25.7-32.2 H (BEAKER) (test code = 751) MEAN CORPUSCULAR HEMOGLOBIN CONC 31.8 GM/DL 32.3-36.5 L (BEAKER) (test code = 752) RED CELL DISTRIBUTION WIDTH 15.9 % 11.6-14.4 H (BEAKER) (test code = 412) PLATELET COUNT (BEAKER) (test 159 K/CU MM 150-450 code = 756) MEAN PLATELET VOLUME (BEAKER) 10.6 fL 9.4-12.4 (test code = 754) NUCLEATED RED BLOOD CELLS 0 /100 WBC 0-0 (BEAKER) (test code = 413) NEUTROPHILS RELATIVE PERCENT 72 % (BEAKER) (test code = 429) LYMPHOCYTES RELATIVE PERCENT 11 % (BEAKER) (test code = 430) MONOCYTES RELATIVE PERCENT 14 % (BEAKER) (test code = 431) EOSINOPHILS RELATIVE PERCENT 3 % (BEAKER) (test code = 432) BASOPHILS RELATIVE PERCENT 0 % (BEAKER) (test code = 437) NEUTROPHILS ABSOLUTE COUNT 4.69 K/ L 1.78-5.38 (BEAKER) (test code = 670) LYMPHOCYTES ABSOLUTE COUNT 0.69 K/ L 1.32-3.57 L (BEAKER) (test code = 414) MONOCYTES ABSOLUTE COUNT (BEAKER) 0.93 K/ L 0.30-0.82 H (test code = 415) EOSINOPHILS ABSOLUTE COUNT 0.20 K/ L 0.04-0.54 (BEAKER) (test code = 416) BASOPHILS ABSOLUTE COUNT (BEAKER) 0.01 K/ L 0.01-0.08 (test code = 417) IMMATURE GRANULOCYTES-RELATIVE 0.20 % 0.00-1.00 PERCENT (BEAKER) (test code = 2801) [id number] 16:20:02 Test Item Value Reference Range Interpretation Comments [employer] left side See_Comment [Automa ty message] The (test code = system which [employer] nerated this 01181-7R) result transmit ty reference range: 1.40 - 0 .90 NA. The reference range was not used to interpret th is result as normal/abnormal . [employer] right See_Comment Presentation Factors: side (test code = Hypertensi on, Hyperlipidemia, 37527-7V) CAD HistoryExer cise Modality: At Restmovement sNormal - 1.40 - 1.00Borderlin e - 0.99 - 0.90Mild - 0.89 - 0.60Moderate - 0.59 - 0.30Severe - 0. 29 - 0.00 [Automated mess age] The system which [employer] nerated this result transmit ty reference range: 1.40 - 0 .90 NA. The reference range was not used to interpret th is result as normal/abnormal . Marilynn Matta [facility] METABOLIC PANEL (142022-04-14 21:39:00 Test Item Value Reference Range Interpretation Comments GLUCOSE, SERUM (test 106 mg/dL 70-99 H code = 2345-7) BUN (test code = 22 mg/dL 8-27 3094-0) CREATININE, SERUM 1.01 mg/dL 0.76-1.27 (test code = 2160-0) EGFR (test code = 78 mL/min/1.73 >59 30111-9) BUN/CREATININE RATIO 10-24 (test code = 3097-3) SODIUM, SERUM (test 131 mmol/L 134-144 L code = 2951-2) POTASSIUM, SERUM 4.6 mmol/L 3.5-5.2 (test code = 2823-3) CHLORIDE, SERUM (test 96 mmol/L 96-106 code = 2075-0) CARBON DIOXIDE, TOTAL 25 mmol/L 20-29 (test code = 2027-) CALCIUM, SERUM (test 9.6 mg/dL 8.6-10.2 code = 75180-6) PROTEIN, TOTAL, SERUM 6.1 g/dL 6.0-8.5 (test code = 2885-2) ALBUMIN, SERUM (test 3.7 g/dL 3.7-4.7 code = 1751-7) GLOBULIN, TOTAL (test 2.4 g/dL 1.5-4.5 code = 37580-8) A/G RATIO (test code 1.2-2.2 = 1759-0) BILIRUBIN, TOTAL <0.2 0.0-1.2 Verified by (test code = 1974-) repeat analysis ALKALINE PHOSPHATASE, See_Comment [Auto mated SERUM (test code = message] The 7350) system which generated this result transmitted reference range : 44 - 121 IU/L. The reference range was not used to interpr et this result as normal/abnormal . AST (SGOT) (test code See_Comment [Auto mated = 1919-12) message] The system which generated this result transmitted reference range : 0 - 40 IU/L. Th e reference range was not used to interpret this result as normal/abnormal . ALT (SGPT) (test code See_Comment [Auto mated = 1742-6) message] The system which generated this result transmitted reference range : 0 - 44 IU/L. Th e reference range was not used to interpret this result as normal/abnormal . GERARDO (test code = GERARDO) [facility] results reported in Eastern Time. [facility] Clinical Information:SRC:B lood, venous*Blood, V enou CBC within 72 hours o f treatmenLCA Source of Specimen:Blood, venous*Blood, V Lab Interpretation Abnormal (test code = 10733-5) Marilynn Matta - ExternalCBC WITH DIFFERENTIAL/[id number] 21:07:00 Test Item Value Reference Range Interpretation Comments WHITE BLOOD CELL See_Comment H [Automated (WBC) COUNT (test message] T he code = 6690-2) system which generated this result transmitted reference range : 3.4 - 10.8 x10E3/uL. The reference range was not used to interpret this result as normal/abnormal . RED BLOOD CELL (RBC) See_Comment LL [Autom ated COUNT (test code = message] The 789-8) system which generated this result transmitted reference range : 4.14 - 5.80 x10E6/uL. The reference range was not used to interpret this result as normal/abnormal . HEMOGLOBIN (test code 8.5 g/dL 13.0-17.7 L = 718-7) HEMATOCRIT (test code 25.1 % 37.5-51.0 L = 4544-3) MCV (test code = 100 fL 79-97 H 787-2) MCH (test code = 34.0 pg 26.6-33.0 H 785-6) MCHC (test code = 33.9 g/dL 31.5-35.7 786-4) RDW (test code = 14.9 % 11.6-15.4 788-0) PLATELETS (test code See_Comment [Autom ated = 777-3) message] The system which generated this result transmitted reference range : 150 - 450 x10E3/uL. The reference range was not used to interpret this result as normal/abnormal . NEUTROPHILS (test 87 % Not Estab. code = 770-8) LYMPHS (test code = 5 % Not Estab. 736-9) MONOCYTES (test code 8 % Not Estab. = 5905-5) EOS (test code = 0 % Not Estab. 713-8) BASOS (test code = 0 % Not Estab. 706-2) NEUTROPHILS See_Comment H [Automated (ABSOLUTE) (test code messag e] The = 751-8) system which generated this result transmitted reference range : 1.4 - 7.0 x10E3/uL. The reference range was not used to interpret this result as normal/abnormal . LYMPHS (ABSOLUTE) See_Comment L [Automate d (test code = 731-0) message] The system which generated this result transmitted reference range : 0.7 - 3.1 x10E3/uL. The reference range was not used to interpret this result as normal/abnormal . MONOCYTES(ABSOLUTE) See_Comment [Automa ty (test code = 742-7) message] The system which generated this result transmitted reference range : 0.1 - 0.9 x10E3/uL. The reference range was not used to interpret this result as normal/abnormal . EOS (ABSOLUTE) (test See_Comment [Autom ated code = 711-2) message] The system which generated this result transmitted reference range : 0.0 - 0.4 x10E3/uL. The reference range was not used to interpret this result as normal/abnormal . BASO (ABSOLUTE) (test See_Comment [Auto mated code = 704-7) message] The system which generated this result transmitted reference range : 0.0 - 0.2 x10E3/uL. The reference range was not used to interpret this result as normal/abnormal . GERARDO (test code = GERARDO) [facility] results reported in Eastern Time. [facility] Clinical Information:SRC:B lood, venous*Blood, V enou CBC within 72 hours o f treatmenLCA Source of Specimen:Blood, venous*Blood, V Lab Interpretation Abnormal (test code = 33311-5) Marilynn Matta [facility]. METABOLIC PANEL (14)2022-03-24 19:43:00 Test Item Value Reference Range Interpretation Comments GLUCOSE, SERUM (test 122 mg/dL 70-99 H code = 2345-7) BUN (test code = 28 mg/dL 8-27 H 3094-0) CREATININE, SERUM 1.07 mg/dL 0.76-1.27 (test code = 2160-0) EGFR (test code = 73 mL/min/1.73 >59 03378-6) BUN/CREATININE RATIO 10-24 H (test code = 3097-3) SODIUM, SERUM (test 132 mmol/L 134-144 L code = 2951-2) POTASSIUM, SERUM 4.6 mmol/L 3.5-5.2 (test code = 2823-3) CHLORIDE, SERUM (test 97 mmol/L 96-106 code = 2075-0) CARBON DIOXIDE, TOTAL 27 mmol/L 20-29 (test code = 2027-9) CALCIUM, SERUM (test 9.6 mg/dL 8.6-10.2 code = 34429-7) PROTEIN, TOTAL, SERUM 6.3 g/dL 6.0-8.5 (test code = 2885-2) ALBUMIN, SERUM (test 3.9 g/dL 3.7-4.7 code = 1751-7) GLOBULIN, TOTAL (test 2.4 g/dL 1.5-4.5 code = 50117-2) A/G RATIO (test code 1.2-2.2 = 1759-0) BILIRUBIN, TOTAL <0.2 0.0-1.2 Verified by (test code = 1974-06) repeat analysis ALKALINE PHOSPHATASE, See_Comment [Auto mated SERUM (test code = message] The 6767-10) system which generated this result transmit ty reference range : 44 - 121 IU/L. The reference range was not used to interpret this result as normal/abnormal . AST (SGOT) (test code See_Comment [Auto mated = 1919-8) message] The system which generated this result transmit ty reference range : 0 - 40 IU/L. The reference range was not used to interpret this result as normal/abnormal . ALT (SGPT) (test code See_Comment [Auto mated = 174-6) message] The system which generated this result transmit ty reference range : 0 - 44 IU/L. The reference range was not used to interpret this result as normal/abnormal . GERARDO (test code = GERARDO) [facility] results reported in Eastern Time. [facility] Clinical Information:SRC :Blood, venous STAT ? ? [facility] Source of Specimen:Blood, venous STAT Lab Interpretation Abnormal (test code = 53682-0) Marilynn Matta [facility] WITH DIFFERENTIAL/[id number] 19:12:00 Test Item Value Reference Interpretation Comments Range WHITE BLOOD CELL See_Comment H [Automated message] (WBC) COUNT (test The system which code = 6690-2) generated thi s result transmitted ref erence range: 3.4 - 10 .8 x10E3/uL. The reference range was not used to int erpret this result as normal/abnormal . RED BLOOD CELL See_Comment LL [Automated m essage] (RBC) COUNT (test The system which code = 789-8) generated this result transmitted ref erence range: 4.14 - 5 .80 x10E6/uL. The reference range was not used to int erpret this result as normal/abnormal . HEMOGLOBIN (test 9.2 g/dL 13.0-17.7 L code = 718-7) HEMATOCRIT (test 27.4 % 37.5-51.0 L code = 4544-3) MCV (test code = 103 fL 79-97 H 787-2) MCH (test code = 34.6 pg 26.6-33.0 H 785-6) MCHC (test code = 33.6 g/dL 31.5-35.7 786-4) RDW (test code = 15.0 % 11.6-15.4 788-0) PLATELETS (test See_Comment [Automated message] code = 777-3) The system whi ch generated this result transmitted ref erence range: 150 - 45 0 x10E3/uL. The reference range was not used to int erpret this result as normal/abnormal . NEUTROPHILS (test 83 % Not Estab. code = 770-8) LYMPHS (test code = 10 % Not Estab. 736-9) MONOCYTES (test 7 % Not Estab. code = 5905-5) EOS (test code = 0 % Not Estab. 713-8) BASOS (test code = 0 % Not Estab. 706-2) NEUTROPHILS See_Comment H [Automated mes jevon] (ABSOLUTE) (test The system which code = 751-8) generated this result transmitted ref erence range: 1.4 - 7. 0 x10E3/uL. The reference range was not used to int erpret this result as normal/abnormal . LYMPHS (ABSOLUTE) See_Comment [Automate d message] (test code = 731-0) The syst em which generated this result transmitted ref erence range: 0.7 - 3. 1 x10E3/uL. The reference range was not used to int erpret this result as normal/abnormal . MONOCYTES(ABSOLUTE) See_Comment [Automa ty message] (test code = 742-7) The syst em which generated this result transmitted ref erence range: 0.1 - 0. 9 x10E3/uL. The reference range was not used to int erpret this result as normal/abnormal . EOS (ABSOLUTE) See_Comment [Automated m essage] (test code = 711-2) The syst em which generated this result transmitted ref erence range: 0.0 - 0. 4 x10E3/uL. The reference range was not used to int erpret this result as normal/abnormal . BASO (ABSOLUTE) See_Comment [Automated message] (test code = 704-7) The syst em which generated this result transmitted ref erence range: 0.0 - 0. 2 x10E3/uL. The reference range was not used to int erpret this result as normal/abnormal . HEMATOLOGY Note: Manual differen tial COMMENTS: (test was performe d.Verified code = 21562-4) by microscop ic examination.1+ Polychromatophi cally GERARDO (test code = [facility] results GERARDO) reported in Eastern Time. [facility] Clinical Information:SRC: Blood, venous*Blood, V enou CBC within 72 hours o f treatmenLCA Source of Specimen:Blood, venous*Blood, V Lab Interpretation Abnormal (test code = 54274-9) Marilynn Matta - ExternalCOM. METABOLIC PANEL (14)2022-02-24 19:05:00 Test Item Value Reference Range Interpretation Comments GLUCOSE, SERUM (test 126 mg/dL 70-99 H Plea se note code = 2345-7) reference int erval change BUN (test code = 20 mg/dL 01-11 3094-0) CREATININE, SERUM 1.21 mg/dL 0.76-1.27 (test code = 2160-0) EGFR (test code = 63 mL/min/1.73 >59 15217-3) BUN/CREATININE RATIO 10-24 (test code = 3097-3) SODIUM, SERUM (test 129 mmol/L 134-144 L code = 2951-2) POTASSIUM, SERUM 4.1 mmol/L 3.5-5.2 (test code = 2823-3) CHLORIDE, SERUM (test 95 mmol/L 96-106 L code = 5-0) CARBON DIOXIDE, TOTAL 27 mmol/L 20-29 (test code = 2027-9) CALCIUM, SERUM (test 8.8 mg/dL 8.6-10.2 code = 48608-7) PROTEIN, TOTAL, SERUM 6.1 g/dL 6.0-8.5 (test code = 2885-2) ALBUMIN, SERUM (test 3.8 g/dL 3.7-4.7 code = 1751-7) GLOBULIN, TOTAL (test 2.3 g/dL 1.5-4.5 code = 93815-9) A/G RATIO (test code 1.2-2.2 = 1759-0) BILIRUBIN, TOTAL <0.2 0.0-1.2 Verified by (test code = 1974-06) repeat analysis ALKALINE PHOSPHATASE, See_Comment [Auto mated SERUM (test code = message] The 3445-6) system which generated this result transmit ty reference range : 44 - 121 IU/L. The reference range was not used to interpret this result as normal/abnormal . AST (SGOT) (test code See_Comment [Auto mated = 1919-8) message] The system which generated this result transmit ty reference range : 0 - 40 IU/L. The reference range was not used to interpret this result as normal/abnormal . ALT (SGPT) (test code See_Comment [Auto mated = 1741-6) message] The system which generated this result transmit ty reference range : 0 - 44 IU/L. The reference range was not used to interpret this result as normal/abnormal . GERARDO (test code = GERARDO) [facility] results reported in Eastern Time. [facility] Clinical Information:SRC :Blood, venous ?[facility] Source of Specimen:Blood, venous Lab Interpretation Abnormal (test code = 12297-0) Marilynn Matta - ExternalCB WITH DIFFERENTIAL/[id number] 18:43:00 Test Item Value Reference Range Interpretation Comments WHITE BLOOD CELL See_Comment [Automated message] (WBC) COUNT (test The system which code = 6690-2) generated thi s result transmit ty reference range : 3.4 - 10.8 x10E3/uL . The reference range was not used to interpret this result as normal/abnormal . RED BLOOD CELL (RBC) See_Comment LL [Autom ated message] COUNT (test code = The syste m which 789-8) generated this result transmit ty reference range : 4.14 - 5.80 x10E6/uL. The reference range was not used to interpret this result as normal/abnormal . HEMOGLOBIN (test code 8.8 g/dL 13.0-17.7 L = 718-7) HEMATOCRIT (test code 25.4 % 37.5-51.0 L = 4544-3) MCV (test code = 105 fL 79-97 H 787-2) MCH (test code = 36.4 pg 26.6-33.0 H 785-6) MCHC (test code = 34.6 g/dL 31.5-35.7 786-4) RDW (test code = 15.2 % 11.6-15.4 788-0) PLATELETS (test code See_Comment LL Platele t count = 777-3) verified by examination of peripheral bloo d smear. [Automat ed message] The sy stem which generated this result transmit ty reference range : 150 - 450 x10E3/uL. The reference range was not used to interpret this result as normal/abnormal . NEUTROPHILS (test 78 % Not Estab. code = 770-8) LYMPHS (test code = 6 % Not Estab. 736-9) MONOCYTES (test code 13 % Not Estab. = 5905-5) EOS (test code = 2 % Not Estab. 713-8) BASOS (test code = 1 % Not Estab. 706-2) NEUTROPHILS See_Comment H [Automated mes jevon] (ABSOLUTE) (test code The sy stem which = 751-8) generated this result transmit ty reference range : 1.4 - 7.0 x10E3/uL. The reference range was not used to interpret this result as normal/abnormal . LYMPHS (ABSOLUTE) See_Comment L [Automate d message] (test code = 731-0) The syst em which generated this result transmit ty reference range : 0.7 - 3.1 x10E3/uL. The reference range was not used to interpret this result as normal/abnormal . MONOCYTES(ABSOLUTE) See_Comment H [Automa ty message] (test code = 742-7) The [employer] em which generated this result transmit ty reference range : 0.1 - 0.9 x10E3/uL. The reference range was not used to interpret this result as normal/abnormal . EOS (ABSOLUTE) (test See_Comment [Autom ated message] code = 711-2) The system [employer] generated this result transmit ty reference range : 0.0 - 0.4 x10E3/uL. The reference range was not used to interpret this result as normal/abnormal . BASO (ABSOLUTE) (test See_Comment [Auto mated message] code = 704-7) The system [employer] generated this result transmit ty reference range : 0.0 - 0.2 x10E3/uL. The reference range was not used to interpret this result as normal/abnormal . HEMATOLOGY COMMENTS: Note: 1+ (test code = 27035-2) Polych romatophilia1+ Poikilocytosis GERARDO (test code = GERARDO) [facility] results reported in Eastern Time. [facility] Clinical Information:SR C:Blood, venous ?[facility] Source of Specimen:Blood , venous Lab Interpretation Abnormal (test code = 94389-0) Marilynn Matta [facility] [id number] 10:27:59Surgical Pathology Report Case: [id number] Authorizing Provider: Mellissa Carrasco, Collected: 02/25/2021 03:01 PM Ordering Location: [facility] PERIOPERATIVE Received: 02/25/2021 04:37 PM SERVICES Pathologist: Amanda Krueger MD Specimen: Neck, Right, 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 This addendum is reported to release results of [facility] [place] [facility] CD[facility] testing (reference number [id number]). Please see attached full scanned report for additional information.Addendum electronically signed by Amanda Krueger MD on 11/15/2021 at 10:27 AMThis addendum is released to add additional CPT codes for pulling, review, and selection of appropriate blocks for PD-L1 testin13760Ezloxrii electronically signed by Amanda Krueger MD on 09/26/2021 at 7:26 AMThis report is released to report results for PD-L1 ([employer] reference number [id number]).RESULTS:COMBINED POSITIVE SCORE (CPS): 2Reference Ranges:PD-L1 Expression CPS >/= 1No PD-L1 expression CPS < 1See attached full report. A ddendum electronically signed by Amanda Krueger MD on 09/25/2021 at 9:25 AMLYMPH NODES, RIGHT NECK LEVELS II AND III, DISSECTION:- ONE OF EIGHT LYMPH NODES, POSITIVE FOR METASTATIC CARCINOMA (1/8)- LARGEST METASTATIC DEPOSIT: 2.7 CM- EXTRANODAL EXTENSION PRESENT- TUMOR IS PRESENT IN PERINODAL SOFT TISSUE AND ASSOCIATED WITH LYMPHVASCULAR SPACE INVASION Signing Pathologist Direct Phone Line: [phone] signed by Amanda Krueger MD on 02/28/2021 at 3:11 PMDr. Eliecer Luna was notified of the above diagnosis on 02/28/2021.09214Ubuntqmiex to cervical lymph nodeNeck, RightReceived fresh labeled the patient's name, accession number and "right neck dissection level 2 and 3" is a 6.7 x 3.0 x 1.1 cm unoriented portion of perry-red, fibrous, indurated muscle and fibroadipose tissue. Sectioning of the muscle reveals a 2.7 x 2.0 x 1.3 cm saucedo-white, ill-defined, firm mass involving 2 possible lymph nodes and adjacent fat. The 2 grossly positive lymph nodes range from 0.7-0.9 cm in gre atest dimension. Multiple additional lymph nodes ranging from 0.2-0.4 cm in greatest dimension are also identified. Spa Concierge sections are submitted as follows:Section qpnfO3-A2-hxcl and 2 grosslypositive lymph nodes, bisectedA3-1 possible lymph node, trisected A4-1 possible lymph node, bisectedA5-1 possible lymph node, bisectedA6-5 possible lymph nodesFRENCH Salazar HT (ASCP)[facility], Department of Pathology, [address] [place] [address], [facility] [address], [facility], Department of Pathology, [address] [place] [address], [facility], Department of Pathology, [address] [place] [address], [place], TUNNEL CATH CENTRAL INS W/PORT [id number] 09:46:00Chest PortReason for Exam:->Malignant neoplasm of base of tongueSUTTER DELTA [facility] CENTERName: [facility] HERNANDEZ : 1945 Sex: MFINAL REPORT Left internal jugular chest port insertion History: Lung cancer. Modality: Sonography and fluoroscopy. Sedation: Moderate sedation was administered. 1.5 mg of Versed and 75 mcg of fentanyl IV was used for moderate sedation monitored under my direction. Total intra-service time of sedation was 30 minutes. The patient's vital signs were monitored throughout the procedure a nd recorded in the patient's medical record by the nurse. Video Production Intern: Ayaz Russo MD Or First Assist Registered Nurse: None. Approach: Left internal jugular vein Estimated blood loss: < 5 cc. Specimen: None. Fluoroscopy Time: 0.3 min.Reference Air Kerma (Ka, r): 1.0 mGy. Technique: Informed written consent was obtained. Discussion of risks, benefits, and alternatives were made with the patient. The patient expressed understanding and agreed to proceed. A universal timeout was performed prior to starting the procedure. All elements maximal sterile barrier technique was utilized for this procedure, including utilization of sterile scrub solution for skin prep, a large sterile sheet to cover the areas of the patient that were not prepped, and hand hygiene, mask, head covering, and sterile gown for performing radiologist and scrub technologist. The skin was anesthetized with 2% lidocaine. Ultrasound evaluation showed a patent and compressible left internal jugular vein, which was punctured under direct real-time ultrasound guidance with a micropuncture needle. An ultrasound image was saved to PACS. A 0.018 inch wire was placed through the needle into the right atrium. A 4 Korean micropuncture sheath was placed and a 0.035 wire was advanced into the IVC. A subcutaneous tunnel and pocket were created in [facility] wall by blunt dissection. The pocket was flushed with antibiotic solution. A 6 Korean Bard single lumen power injectable port was placed within the pocket and the catheter brought through the tunnel. The catheter was cut at 27 cm. A peel-away sheath was placed in the left IJ vein and the catheter was advanced through the sheath, with its distal tip terminating in the cavoatrial junction. The peel-away sheath was removed. The port was flushed and aspirated easily following placement. The skin incision was closed with 3-0 Monocryl and Dermabond. The small jugular incision site was closed using Dermabond. The patient tolerated the procedure well and left the department in the same condition. Results: Spot radiograph of the chest demonstrates the new left IJ Port-A-Cath to lie in the expected position with its tip overlying the cavoatrial junction. Impression: Successful, uncomplicated placement of a left internal jugular chest port using sonographic and fluoroscopic guidance and conscious sedation. The port is ready for immediate use. Signed: Ayaz Russo MDReport Verified Date/Time: 10/04/2021 09:46:19 Reading Location: [place] [address] Angio Body Reading Room CBC W/PLT COUNT & AUTO [id number] 07:01:12 Test Item Value Reference Range Interpretation Comments WHITE BLOOD CELL COUNT (BEAKER) 8.4 K/ L 3.5-10.5 (test code = 775) RED BLOOD CELL COUNT (BEAKER) 3.72 M/ L 4.63-6.08 L (test code = 761) HEMOGLOBIN (BEAKER) (test code = 11.6 GM/DL 13.7-17.5 L 410) HEMATOCRIT (BEAKER) (test code = 36.2 % 40.1-51.0 L 411) MEAN CORPUSCULAR VOLUME (BEAKER) 97.3 fL 79.0-92.2 H (test code = 753) MEAN CORPUSCULAR HEMOGLOBIN 31.2 pg 25.7-32.2 (BEAKER) (test code = 751) MEAN CORPUSCULAR HEMOGLOBIN CONC 32.0 GM/DL 32.3-36.5 L (BEAKER) (test code = 752) RED CELL DISTRIBUTION WIDTH 13.7 % 11.6-14.4 (BEAKER) (test code = 412) PLATELET COUNT (BEAKER) (test 195 K/CU MM 150-450 code = 756) MEAN PLATELET VOLUME (BEAKER) 10.3 fL 9.4-12.4 (test code = 754) NUCLEATED RED BLOOD CELLS 0 /100 WBC 0-0 (BEAKER) (test code = 413) NEUTROPHILS RELATIVE PERCENT 68 % (BEAKER) (test code = 429) LYMPHOCYTES RELATIVE PERCENT 10 % (BEAKER) (test code = 430) MONOCYTES RELATIVE PERCENT 10 % (BEAKER) (test code = 431) EOSINOPHILS RELATIVE PERCENT 11 % (BEAKER) (test code = 432) BASOPHILS RELATIVE PERCENT 0 % (BEAKER) (test code = 437) NEUTROPHILS ABSOLUTE COUNT 5.68 K/ L 1.78-5.38 H (BEAKER) (test code = 670) LYMPHOCYTES ABSOLUTE COUNT 0.84 K/ L 1.32-3.57 L (BEAKER) (test code = 414) MONOCYTES ABSOLUTE COUNT (BEAKER) 0.87 K/ L 0.30-0.82 H (test code = 415) EOSINOPHILS ABSOLUTE COUNT 0.96 K/ L 0.04-0.54 H (BEAKER) (test code = 416) BASOPHILS ABSOLUTE COUNT (BEAKER) 0.03 K/ L 0.01-0.08 (test code = 417) IMMATURE GRANULOCYTES-RELATIVE 0 % 0-1 PERCENT (BEAKER) (test code = 2801) PROTHROMBIN TIME/[id number] 06:58:59 Test Item Value Reference Range Interpretation Comments PROTIME (BEAKER) 14.0 seconds 11.9-14.2 (test code = 759) INR (BEAKER) (test 1.10 See_Comment [Automat ed message] code = 370) The system [employer] generated this result transmitted ref erence range: <=5.90. The reference range was not used to int erpret this result as normal/abnormal . RECOMMENDED COUMADIN/WARFARIN INR THERAPY RANGESSTANDARD DOSE: 2.0 - 3.0 Includes: PROPHYLAXIS for venous thrombosis, systemic embolization; TREATMENT for venous thrombosis and/or pulmonary embolus.HIGH RISK: Target INR is 2.5-3.5 for patients with mechanical heart valves. COVID-19 (KAMRYN-CoV-2) PCR [id number] 11:36:52 Test Item Value Reference Interpretation Comments Range COVID19 SARS Pre-Out of OR Procedure Indication (test code = 59325) COVID19 SARS Result Not Detected Not Detected (test code = 55221-2) COVID19 SARS SARS-CoV-2 NOT Detected. Interpretation (test Reference Range: Not code = 89476) Detected Methodology: The [employer] RealTime SARS-CoV-2 assay is a qualitative real-time reverse enrollment services vice president polymerase chain reaction (comptroller-PCR) test to detect RNA from SARS-CoV-2 in nasal, nasopharyngeal and oropharyngeal swabs from patients with signs and symptoms of infection who are suspected of COVID-19 by their health care provider. The [employer] RealTime SARS-CoV-2 performed on the [employer]000 System is a dual target assay with primers and probes for the RdRp and N genes. Results must be interpreted within the context of all relevant clinical and laboratory findings, and epidemiological risk factors. Positive results are indicative of the presence of SARS-CoV-2 RNA; clinical correlation with patient history and other diagnostic information is necessary to determine patient infection status. Positive results do not rule out bacterial infection or co-infection with other viruses. Negative results do not preclude SARS-CoV-2 infection and should not be used as the sole basis for patient management decisions. The [employer] RealTime SARS-CoV-2 assay is for in vitro diagnostic use under FDA Emergency Use Authorization only. Testing is limited to laboratories certified under the Clinical Laboratory Improvement Amendments of 1988 (CLIA), 42U.S.C. 263a, to perform high complexity tests. The Test was performed by the CLIA-certified, high-complexity Molecular Diagnostics Laboratory (MDL) at [facility] under the Food and Drug Administration (FDA) s Emergency Use Authorization. Factsheet for patients: [email or web address]://[email or web address]/ AbbottFactSheetPatientsFact sheet for healthcare providers: [email or web address]/ AbbottFactSheetHCP Test performed by:[facility] Molecular Diagnostic [address] [place] [address] [facility] HospitalTissue [id number] 15:11:50 Test Item Value Reference Range Interpretation Comments Case Report (test code Surgical Pathology = 104) Report Case: [id number] Authorizing Provider: Mellissa Carrasco, Collected: 02/25/2021 03:01 PM Ordering Location: [facility] PERIOPERATIVE Received: 02/25/2021 04:37 PM SERVICES Pathologist: Amanda Krueger MD Specimen: Neck, Right, 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 DIAGNOSIS (test code = [id number] 3220) uZzEwMzNcZnRuYmpcdWMxIH tccnRmMVxlcGljOTYwMVxhb kZmHIJluCWjV3VuqmckRLgf VZ4uUH0liUtrxQMfwQReIER rEfBjb7rhc500iQNmd1upPE GXtcjyyVk2xNzbS97vm7T3I jukK02lkATfCUF7NKCxIJNs pRMcWOAdEHY2UIXlfPGbM1v eJWFvAV7erwfaKFzyIJmjFW FdwEL4BHIxeQKnF0IwKUNjE TvnXEKwbdj5GmXeSk2xlCZg eTcyMFxwYXJkXHBsYWluXGZ vLjSdUJaQFOhfUi2OSDYzWV PYI2mQDM1QO9zjKLCVMLfCF PlVRMFCWBYORHgrJONXS0IV B9QJY052RZCajkQaOYHLAfG uP5EvQTpNCSReFOeUSMvgIe 3BMZBlUAYMW9wEUSPOVFUHB hGAJGZWG2WRXKgLAFKYPpQT Qq0OOYMaET29JMbxILFzQPY dDDMWP0LLBTNUZGRTP3AOLR dWOCBVOC6UPZP7RVLtKvIJG SngSKHlLTEgFMwUAeGFK6FJ SUEAJQCSKlJGE06iJZCNR1P RYAoyIUXuPVXlGWPCZ0FuWO XvEKQSA5OUAXCOMlMRHSYMI a4DLWucY01JQKQQBOCFNIHn RV3YBMQBD33PPVIIRZMkF6h XIAHTMP4FTYUPA8EIFJWUYB WMZXCRPNlUJmLWVI6UUYXzg v73ESI2ReZab0M0MUG9DTBw UESqn2zyWNVgrKJlYtKgJrW cZnRuYmpcdWMxXGRlZmYwe1 mfi496rMYgk2dnCNLmZcW1j BTwJEUxrZQgE718RWSlKAwc o3dyr4TxTYPhdKMqj9V8JLJ QdgvziVd7sDihD97xb7H3Gz uwZ3chYEHcFYZvW7GbLO1fA ZRpGcg1BJE0XJU3MAVjEVNw I3ErFD0lSGYcgJMcBAn3c9p poCzxEJWyZYD0y4cpPBrywb NjLJ3pie9fdRf2b1swvbBwE IJvLJScwPYXHKJhQ3QwfYek Eb2beIm7jSisJedyROZ4Xtg 6RP9dhm69tdf1rGljEAMfyj ssJqI8UEcxSYLxnwiyXVd8Y FfdJNVguXI4KRYdbVReY5Nr KIWqPM6gimj5DJX2XTlfEGZ rOhC2ODGsxXVpEYIwiTygPR avm157EDW5HwSrNY5jP4Hbb 2W9oP7hhINhUAEzwIPcJqEo RLZonb5qdCKmVLhdu5UvKOA 1whO6fKNkpJDbELBrQsO7AX qhEK4koq07CDBvJFL4vz0vc ZYyeYftfmLhfMRqQRnrS4Km NANxs057QGVaW2AwWTEaf5K 3ipOdEtQuCNTjsYM4seN3NK UfAZ9ssmvtp0tqVIbpRDwsT IDxhpY3ckQ6DSLupKZyC9Vn zD9dWQCmYY9aswjue0leTIX 4NNvgNHRpFYP1KhNqRRVvo5 Pbbzu6HtUbq5UfqFJvKXewX 72wa618KPLxtcFvZ0fxeOWn mpmahQHbladpVHdrhwP8GUA yBOcaumjhJKSsXGflL1duHw AaTILtfHlxJAicu4RrUGItK SShNaVlvUJcFTMfPym8SJQg lQKtKLDoFbVuH9bmwzjpAdO PSSZqb9zaS8uxxWGGtRSqO2 QgUGhvbmUgTGluZTogNzEzL Yp9UG44IkJuRYXpug53 COMMENT (test code = n4pkfOPaOWOawOK8IrNaJEY 3359) hn6hyz6ZgaFAmfDFsMCrtnH NoreOzqz14jRT4bD69GE5qT TGgKaM0KVSfiuI8Ril7LELd VYSqzTPnK241w0yxz9oskfQ daGT7dUdcCKFuefstHyY9KD ldQMKzjmtuOAw2KOsiTPYff XU9QQZvsPJmC9KeVBUhNR5g rgv1PSO1GLglUDIfYqJ9ISR vbFVpLNIoeBolHPltg310HC X0BnLwTYEzgcRniGkbnK6tO nDiELVWaq0yRWLxumKMVWrg t2YiK1dsd4PtTJ2idLegqPJ fPI1aXQYjMWKvJh10YRIcfJ Zrko5bbEMmi79qVJVvRSJnH lCoCQ2uaULtxX== CPT Code(s) (test code v8zffXUvWRDbnPO8IuTdXWR = 3357) gy2wcq4YinOHdpVExCVuzuF WlygCzzs06lAC6vO55WW7sB RJsPiX1CNAavbX6Dhj1XBRy QWAvgLNrT460h4yxl6naooQ unRM5yMitFFIzjtfwYcP0YO khSXIccyslAGd6JRevQYVqz CZ2QMRebLEnZ1SyAAYzJZ9t obj5AVJ6RViwAWHtTpZ7CVC ciCEzNZHcbDinCKnhj489XZ O4DmVcVCMvusYxnKlbeK7aS pUwKTH3NHWaI7ooXPT7 CLINICAL HISTORY (test c4gsvJFpASXixNU8CuSuZLS code = 3356) zp1xxc9WfvBAtqONnEQgscL FuapCsld55ePD3kV29BF1xT DQqFbN1FNGqraR1Cip2ENNn RAJlvVWnN319y6fpv8cuxwI maYT5NNOlUJQlO0CtFX4uZW GknEDlA48kcGLmLYF3CHVhT UXxcOGhJYMeWLF2VRQdgQFb W9weQQUwQF5tdnyiNHbsDCr jRPQnaBR8TXBszIXnZ0LwQQ BoHPepSTPsdzb0QmQxOq3gs GVyeTcyMFxwYXJkXGxpMVxy aTFcbGluMVxwbGFpblxmczI bPZVxIZJIMURwc5Nfk6kvAB VfTGPwfpYzF1ShWLm1aULdM F2qJCZfmCJqoH== SPECIMEN SOURCE (test c4vtwNJfELDlxPD8LnJkNFL code = 3377) rm8rfm8YnuGAzvBVuSQhksA PcweFdny56oQZ9wS51ID8jK XArAqV7IVCvnxA4Dcu4KJWo WSYrtWNrI012z1wis0fkrwY wfZW1HUFdYMZnH8WjKC3tCQ XjsIGtX9bpERDjSYWuZ1KqO D7hXOOsOpk2JSH0KHj2POBa cGVydzEyMjQwXHBhcGVyaDE 9GYCnWB8ykvowJDmmFOlaWV AjenG0BMMeoDKjT1JdYFIhJ W5qdlloKQQ0OYddSBAkBXB7 YhTnUFDex3Eudcq3KgKqtUQ yZFxsaTFccmkxXGxpbjFccG ymgW9eLrZnEVpeMaPiK0cfL nBhdDIgTmVjaywgUmlnaHRc cGFyfQ== GROSS DESCRIPTION c6snsCQzYFPuhAEaQpAgCXJ (test code = 3366) wWYBgk0jmPIAgnWIjWcOrLs NcZnRuYmpcdWMxXGRlZmYwe 0psi400yOUwx0xsFMYhMrN3 bOIpHQFiaPDsV352h7mpz1x jmfDjnOK3PAStKZP5BVetgn CuceS4ENmoaTFqFvO0MOlox uDzCNdgxnSfuyKhMlw0HFPu T431TBE7lEzlj6tcPTX5IAV kNNPjZhEwEu7jmLGeG741RZ IbZFFGQJXtiLo5URFxaqGjc yFykSUYo684S664o3mrGFRv tqWipGnVkrixn8mlD826CNK hcGVydzEyMjQwXHBhcGVyaD R6JVMiWO6fgpjvHfHoTK6dd iuvGgVgOJ3hxtp0ScMhHD5m cmdiNzIwXGhlYWRlcnkwXGZ rw2XzbimcLH0kR0Wwv3U0eU 9maXRcZGVmdGFiNzIwXGZvc s5siLGlPGfzf7LfWVY1yzR9 cWFwyAPuDNOuTO09Bucfl2F hTlsfCFG4SOAvxuWlt6Ael6 bxJnUjxgFgL4adP8GuKISxS ZWdUMAoEqQnfgSvb4Ctt3Tw bOXcaHm7l0olXHZjYWLubGp hc8gnHRN9AAYgP1U4hJBqh9 rdROamAPXesRJ1nwwdBVlvP HOllzY8yzfdUPvjXJUqhIJ8 gawhPNmiAIEmIiN2dkymVZf lZYGcINS0ISvvv353MMC7AV xzYmtwYWdlXHBnbmNvbnRcc GduZGVjXHBsYWluXHBsYWlu XGYwXGZzMjRccWxccGxhaW5 hKsDeXiUsILdlQX8oXZRrL2 xseJWzUOEsFDDsZ3zpMvPmw J4aiEcxKNasnpNxOYHyM8Hf dmVkIGZyZXNoIGxhYmVsZWQ gdGhlIHBhdGllbnQncyBuYW 6qSCNoI9Wql3Rhz27adtYmD mVyIGFuZCAicmlnaHQgbmVj thWwfNZdDXG2bY9tTRfgyiI oMXUmQH0jEHUpEDjyMQGsOi 69UCefMa4fLQmdST0wBGNzE FMll6WuJI30HWPbvL3vkLir raKcXpY3TB8adzXtGKNpuJY nd4IwSWAefbF9xpO9VEMydT LxA4ijRIXaBJExoQAhg1Zkp MMgv7RvoJobk9VrFsRqN1Gv nJkfcukgJlDlTsZ1uEMcyEK tB4jjOFDmbsTviCQiNKNoPa uzkXLgHeRgkXHbXnOtL63oF 9GvdU99qPu6HKlxsSinFNZs CrhdWYAsCSSxdl3inRBshgU oxtBmiPCclabtTtJjz8YhwE PpPQOxhH3koQSty7XocqZsd sKpCKZcSDSlabBfUyP6CiUd FZmnPYDeZ9Bga7KseEApt2F teTc3URNguJ2etNKbq5Lynd BwVC7jMSMqul2qYLZwWz7dZ szbV51nvH0qH5PcIJLrj1Hz XNywMZ7iaJ7eSvJkXAPrfPp hzPJpAJYopUYpp15fvTZseI 3gbDVon3LrohIwZP3uuD0yK EFwd47rAB4jNVIcSGQozBNo cdQjjzUflJWgzXZyeP9qfaS ht85xUGGjUKVkn32odOTguh MaLhhzYL0yWBQqhNIqw0Nkg CH1uMFsTTGoS2Jcn41bTDPy XUZupNXvwNL8UILbGZAjJg2 obP14ltzzcKWiDHLqfmQMXB M7jV8gRSFrLUHzmWSfKFHtT TFaGQ4kn7HlJY1ySZUaU3Jd q7ZtfPYdr4QwlZn7XZRdnW6 knTErx4BihralKdhxXQN2CW ErfHMwBKWtFCTseY1yt9joy LFpnVoevOsich9zMLpqiWFl h5OddDMlBUqoAMEtYTQyHIQ cc8KkyTUlJPLqoO0zlFOyv5 DfCCSwxJCvI0BdZIwoZPHuK LRuAIPox4XyyHJnQUJuwY4b tTKto9VzKSVyoJSrS0ZxWCu zPCYdSRCpESYdu0FktFKhCF AupI8urWHza1Non4hkNSXpa GQjDVRpiPZyEPMqU6HceRqy xqxlDQIsWNkHUPeLX1VTJXr wYXJ9 MICROSCOPIC r8hgaAZmJPPadGB1SrShOEH DESCRIPTION (test code kd5ads6VqkYEzlWPnMDusoI = 3371) EctgKhbf62gBP3jQ57YE9oF ROwJeE0PSKojtF2Gnw8YAOr UURglSOdR341o5kir0uoldL jvRJ5nNvnSHJzxorrKgF8FW pbABEbroemCPm1WOktJOCpr DZ7NZSykMAzO9AgQNBkPB2i hwd5WSO4HDvaSXGrEsU5UZJ szGObWJDtfXxoBKaky489ZS W5VuRaTGOlegOspPmrlK2gG vXcWPGTDWPqk1MmPEQjkBYq fQ== Gross assessment was [facility] performed at ([facility], code = 2777) Department of Pathology, [address] [place] [address]382, Technical component [facility] was performed at ([facility], code = 2778) Department of Pathology, [address] [place] [address] 55643, Professional component [facility] was performed at ([facility], code = 2779) Department of Pathology, [address] [place] [address] 19765, [facility]:04:21 Test Item Value Reference Range Interpretation Comments Calcium (test code = 9.4 mg/dL 8.4-10.2 85486-6) GERARDO (test code = GERARDO) Section Gang ID - RAYRAY G Lab Interpretation (test Normal code = 51001-8) [facility] 05:04:21 Test Item Value Reference Range Interpretation Comments CALCIUM (BEAKER) (test code = 697) 9.4 mg/dL 8.4-10.2 Section Gang ID - RAYRAY GPTH, ekpnhj3640-10-74 18:57:15 Test Item Value Reference Range Interpretation Comments PTH (test code = 2731-8) 85.0 pg/mL 8.5-72.5 H GERARDO (test code = GERARDO) Section Gang ID - DB Lab Interpretation (test Abnormal code = 45440-2) [facility], [id number] 18:57:15 Test Item Value Reference Range Interpretation Comments PARATHYROID HORMONE INTACT 85.0 pg/mL 8.5-72.5 H (BEAKER) (test code = 577) Section Gang ID - EUNVQHKUJ1942-84-56 18:44:53 Test Item Value Reference Range Interpretation Comments CALCIUM (BEAKER) (test code = 697) 9.4 mg/dL 8.4-10.2 Section Gang ID - DBAntibody tzxuqs1427-87-11 15:11:00 Test Item Value Reference Range Interpretation Comments Ab Scrn (test code = 890-4) NEGATIVE peg [facility], [id number] 14:23:00 Test Item Value Reference Range Interpretation Comments ABO Grouping (test code = 2588) A Rh Factor (test code = 2589) POS [facility] [id number] 23:54:00 Test Item Value Reference Range Interpretation Comments CROSSMATCH (test code = 2264) COMPATIBLE Unit ABO (test code = A Pos 5276575) UNIT NUMBER (test code = [id number] 934-0) Status (test code = 0551301) TX_TIMEINCHART Blood Bank Product (test code RED BLOOD CELLS = 2263) PRODUCT CODE (test code = X9539P32 933-2) [facility] [id number] 23:54:00 Test Item Value Reference Range Interpretation Comments CROSSMATCH (test code = 2264) COMPATIBLE Unit ABO (test code = A Pos 7738587) UNIT NUMBER (test code = [id number] 934-0) Status (test code = 3598988) [facility] Blood [facility] Product (test code RED BLOOD CELLS = 2263) PRODUCT CODE (test code = I2581P86 933-2) [facility] [id number] 23:54:00 Test Item Value Reference Range Interpretation Comments CROSSMATCH (test code = 2264) COMPATIBLE Unit ABO (test code = A Pos 8323432) UNIT NUMBER (test code = [id number] 934-0) Status (test code = 0092160) TX_TIMEINCHART Blood Bank Product (test code RED BLOOD CELLS = 2263) PRODUCT CODE (test code = I6520G95 933-2) [facility] [id number] 23:54:00 Test Item Value Reference Range Interpretation Comments CROSSMATCH (test code = 2264) COMPATIBLE Unit ABO (test code = A Pos 5930704) UNIT NUMBER (test code = [id number] 934-0) Status (test code = 0600312) TX_TIMEINCHART Blood Bank Product (test code RED BLOOD CELLS = 2263) PRODUCT CODE (test code = J9030Q11 933-2) [facility] [id number] 23:54:00 Test Item Value Reference Range Interpretation Comments CROSSMATCH (test code = 2264) COMPATIBLE Unit ABO (test code = A Pos 8576348) UNIT NUMBER (test code = [id number] 934-0) Status (test code = 2424809) TX_TIMEINCHART Blood Bank Product (test code RED BLOOD CELLS = 2263) PRODUCT CODE (test code = W5942N61 933-2) [facility] Center[facility] [id number] 16:32:00 Test Item Value Reference Range Interpretation Comments Case Report (test code Surgical Pathology = 104) Report Case: [id number] Authorizing Provider: Ramiro Up MD Collected: 07/17/2020 02:49 PM Ordering Location: [address] Received: 07/18/2020 08:32 AM Service Pathologist: Khadar Davis MD Specimen: Biopsy, Gastric, spybx ulcer r/o h.pylori DIAGNOSIS (test code = i8nezBWeIBPlv6jiOXUfsI 3220) FuZzEwMzNcZnRuYmpcdWMx IHtccnRmMVxlcGljOTIwMl caxeQwYYAkyKMpA1Jfsswg MDzpOQ9eEH7oxEkahSCynV NvBBKgKwIar9nbr817yNLe s0unZPHHfjqwhNu6rYedC4 7hs5N2TfahD24jmHKxFCud bGFpblxmczIwIFBBUlQgQS EZAFBOUcxPOCAAG4AUVRGU D2XbD7ROWUHOXFKVVNLUI0 EOTdvsNGUyMq6RN9OWR0cO PHZsFfVRU2HFMrNwZ5SWHW JPUEFUSFkuXHBhciBORUdB AJzBPWXXI8TsBU2NWWZNUB 5VCDHZBVGZVJqZC6yWMQCE PJBSJTYASKRdZD6ROAtKGf NSPUERGEIKObXRWf7EXQ1n uMHuTHbQTaKUGB2iB0SKPm JZIFNUQUlOIEZPUiBIRUxJ Y33GMURWTWOaQFRsRgXBUA VTLzNsTUedENY1x5mkkSVw XHNzdGUxODAwMFxhbnNpXG OxQumftgsxYSJaRFF4ouTa VAOcKSwjYVCeCEbsOi9vjS ImrNznKeJfQTDmn7zlhnZU xxhndGo2q1qsCMJjGyA4nS CoTQdlM1aejdGseGSiGOGd RAv4iA34FAOqjS1ojDAjCJ bejkHeDcN9RKllMMZgKxS1 EBDabHLgTMWvS9rcQYRmQI ooQXZpUJgwhCYjKBL7xMuy u1K2tZTtaSBubEqlYuErFu OpPbSRa0GuDVe6pDefD7Qo TDIqTtH0vIVrOXQwCSukKQ IuAWZqtmP7vR22AIargdU2 fFTgs8Mla13ql351aH1miQ NfMMI6QDDcYNXsuCQqKBAh JXF4RUHxdGKyM6ztSYVmRT 4jlukoBShoYVmoWRJbgAM2 FYEikFEbZ2PfUWVaZKzmBP Yatyu0CpWnBc7gnPMpwJxq MYurx7rzu5ydkGXnYgw4BT PoIsSjBexiEQkwq3Ueo4sc PLIxci7fGFI5oYEaxAaup7 L3xIZxBSKgoOXiVTTxTL9l xYUnOLWtyF8xajomVSBfRs YwyibgWILjvPzzdlEjPj0v bVpxRDT7XOekG5upkZ6iWc A3JWpeQ4heuA9fDHb8TExm GZCtfZZ1zvB0TBVoeCAgJ0 DkdD1bWPQlWX8fyrx2t1np YCC0ISbgAGPvMqF1lyH5RU AfxMTgBONtfWdrRUqfx916 YON3AnBvHQYdg7NaZ8SgtC udM65sjDbpU96pWSPllYhv uD7xmJthsL4iSdZkJlWcDU lnjFspSA5vQKVvV4hcfTMj IUHwUPYxE5zeYrImvX3skM kyCLonopFuGADyBog0MTLw uRZuWCCrOkf8SIEdAMPmD1 0xnfmqUEX8uP4gz5gfj8Cu EAfvVRU9LYEap03dQMqhhi K0CQynZb6bIUSyLep3F4nx YXJ9fQ== CPT Code(s) (test code l0prnVHfKMGpoUW5EgXkIX = 3357) Ohz8lyc3BevSGvpZBfKLbf rRUxkyHcer92qZY7hG82VB 0kBBRzNyX4YMAieaC0Boe8 DMAmRLIjlTIqS043g9soo8 fjwjTlzDW1aNkuNERcFQIe YWluXGZzMjAgODgzMDUsID d5CvTaYTUfsg2= CLINICAL HISTORY (test n7sscSRwSKFfoJG6GwGzLG code = 3356) Dgr5tbz9RvjVGmlTIzUZep zZLzcmXspp76vXY0vL31RL 2sMLZvOkZ4YDRuofG6Nfe0 XXIvLAKqgHOqV887q5ghh4 vqwhAqhZT8fEvbIIMuORDb JDzrZJUdCtCmCycllBR5SQ AlU9OlTZNdkSooCG80fWVQ LiBweWxvcmlccGFyfQ== SPECIMEN SOURCE (test n9aiuJPqTXZnrGD5WqVqWU code = 3377) Esz9cih1PtpQIsdVOqELxz nZGnknTqhv94oLZ4pN99IN 5aUZEuWuO0LONsnwD6Lyl7 IRFvHSLshPZvR151s0jgd9 ocidGzuMP5kQoyZATsBUXa YBnfJAAiLoZfG9GpjAPbB4 xwYXJ9 GROSS DESCRIPTION (test o1dlkAFvMIEqeSB7ZiDlET code = 3366) Bfz9vbe4XysOTxjMHfZYqc lXZquiBcfl25pKE6aC93MP 3uNQYdQhK9RYIytmV9Kfc6 YXSjKGUlpUTpP490x4mey7 rsqqFoxGU5qUinTWKfIQPa PRwwWEAhGsRpI2LbF5ihBV 4gQSBpcyByZWNlaXZlZCBp cgBcs9NqZQxgioMyYXQtgF qpXYU4gAWgXPUeFDUkSMYc RP51BJnaFOZrykXpILrdrH VkaWNhbCByZWNvcmQgbnVt QcQvLKQbQJDeUBDxo1PjeC ebW9KqgIJoNsRcKM5qJEPf flFbe1EjMM5cLEWjtHAiUL MxccomdGFzYEo1tWMrIIJc EpTknFcpz6JlZMWtVJtjNB 05cnMvRO9xZUPbJImbZKdi IZK7CBX3PHPrkIBdd8rmpx giIARiVQOslTCksH7jipWh zhNbwTZopNV6TBUdjQ2fuK 62bhMrxqHFKH7xpDOaZLMd cmRccGFyfQ== MICROSCOPIC DESCRIPTION e7erhWZfHDBhvYW6PqAhZB (test code = 3371) Vsk5elc5HurZGytSGjXJfq bWQjozMqpp71tXZ4pK80BH 2fHVSdQdU0AASpfgR0Rll2 JSFeWJZkvOVdJ511i2ybi1 wssmEniLS5fVcqUKSzTEJn ELopZESmYkHuQYFHGu3UEW VELiBccGFyfQ== SPECIAL STUDIES (test f3fgvBYpHTHhdTQ9HdUeHN code = 3376) Cqu2mnd6AyoSFhgDCqLSpf yJMumsLvcj69sAW9lN81LU 3lBQVaYvL7GSSqgpM2Wyd1 QLNoJVOonOPlN011UBYxXN NvtLrfufl5lE73CAPepU6t vVJdWZc3ZRTcuhUpfNuoyF 6oBnZqVpVuNbJKoOXziC42 VTTuevD7WYXzs85ew6SouQ iueeXyBIGkWUfgW8e7CUKz WNIzQPW8t7Ctq0MrtW2gmF 2pxHiceN8xnZNihYW0ghwu u7Npj4TaN4blbCFqdBHofh ZsCJTeauIPDD0TCoABBV2h K8CKKHkEKvEJCKTDIbjfzI ZsKQTsnaUau2wuK2khMNJa NLF7QM8rooVqAgFzAD5uuI 21l5Smg54zp92jbQ3imGRw quYqJ31akYEupNVde9EdUJ DqyuCscXK0XKNuXWmgjaam p7h3yXS9yRYehRGbgBL9jY IprGUuKYKTgKQwLVSwx300 tj4nKVEqeVOfhzGrnL9lJZ gdhopgbOUqJD7tDGVpPJDu SUGjSY50daApKI8smDLlw9 lvljFxyOIbc5YnnIT4XPHt lNJmxjblSg1tKJ15FTNwKH sydJ2rzKLcnqHdKN7iFV9f F2K5qRTpYJHzemPeb6keAX aeDY6pEEUimKfeFkfcVXRw TARzryPelRP2EMCsxYDqAC WlnZDrBNwhxUZok8cmn7Sr T1abvXxeuIC7OYGiW1yveD FnnPE8OUC3qP7rUMcrbcQh KCWir8KvJISeLVSqMcF7wA 9aOMO7NbFQeZulZUY5TlN2 EEdqIUGtSB0sXDfbGJdxS7 IxiRNnIFVTKQGrs6rvK0cn PIWrm6CwqB6pnFU1eTUtFA TubII6HBZeFRO5RGucvFXc MQNvCWAwmXLsjIKuHp4ghJ OpL3IoE9dqoaEgtMFzqJV3 bMQuQKmrnhHlYIA5XCUkgF 0yEY3pCKPveQBbUF9hjOQw MYUmIYMwNAOeQZXof2KbJX Hdaw76BYGjKheafGgzISMk Sl5zWa8wCZGvktVwUAO6Me STNW2wlzjxoILpaKwafn8w FGxiKYPPPEIcHFTjTHX1GQ IwfE0kFBH1hMB8LWU3I7ur F0nwYETmsgZrDT3fHFNuhE CiuoBpDLdgHC1tuPOhJUFp t8TcqglgKCJhGQF1UJD6OD cuQLOsUCVcDn8yNJGmrE3k E1ZgRAP0lmYkw1FnYwXAtI WoaF87vNJjmq89LJPbMPOm S9PfNFDhFEAyLMqpyjBrmO gkNXZcz97tbCCcvwRnv6Oz heUtGIXzB8sfRBVyxNVolX Oga5WfxG7spHCvrnKuFBY3 tWWbUCAbwC0bLRWiyYtfNP EzsG3gL4SgBVyfIa2sNOMl qduvYH1pwi30VL7tjlKdUI 9cnmNbQR21frLyWgLtQRy0 ASpZTXwYZAk3OPQdpbJhpZ ImuKZpIRVthU2tmNIcHt6s bSBoaWdoIGNvbXBsZXhpdH mlU6ylipmnUOywwJUsi5Vl yD0dgFJ4KAZ6dI7iBfbaSS J9 Gross assessment was [facility] performed at ([facility], = 2777) Department of Pathology, [address] [place] [address], Technical component was [facility] performed at ([facility], = 4242) Department of Pathology, [address] [place] [address] 995[address], Professional component [facility] was performed at ([facility], code = 2779) Department of Pathology, [address] [place] [address], [facility] [id number] 16:32:00 Test Item Value Reference Range Interpretation Comments Case Report (test code Surgical Pathology = 104) Report Case: [id number] Authorizing Provider: Ramiro Up MD Collected: 07/17/2020 02:49 PM Ordering Location: [address] Received: 07/18/2020 08:32 AM Service Pathologist: Khadar Davis MD Specimen: Biopsy, Gastric, spybx ulcer r/o h.pylori DIAGNOSIS (test code = [id number] 3220) FuZzEwMzNcZnRuYmpcdWMx IHtccnRmMVxlcGljOTIwMl skmqSkPRPorUZvQ2Aruuiv YBlqNG8iJQ1rlOfigHSslY WhMFFaUyKgr2fmh313pYXk c3yjIWRLzfnmtFm3lCmlE2 1dv9T3PhspH13hgHVmMPyt bGFpblxmczIwIFBBUlQgQS VOAWVPYlkBJMTYO6APGRHL L2NgL7RBAQCJBBPUZLMVX6 HSWmpoYZCbFs7SD5HRU8bK ZSCdMyZIT4ZBJjCzU5RRTX JPUEFUSFkuXHBhciBORUdB QWpTGOHAC9GyKN4MWEQLLN 0EFXBSVPOCLRhXK7hPPJRJ SLRCWAWGFCLwLF1VEVfNSm BTGRMJQWMXKoPVNb3RPS5l uSShLKpPHoYXYC2eN1XUXw JZIFNUQUlOIEZPUiBIRUxJ R65WNBEPBVWpKQFjRyIZOX VJFfAtKFndRUW9g5vjaOVz XHNzdGUxODAwMFxhbnNpXG SsOkvvkwuhTVHlYRK4jvEj ZJZkDFhzRZFdAJxaKj6uzO UzrEhkSsGnBWJhi4tfrfIE ntzxyId4h3fdEOSeMeS4jQ DmJLruP8dsmlOzeHXyPLCm KOi0nS32BOXslR6qyJIqXY ntipYoXwU6JCfeQWKbXaL6 MAZwzSJdTCKtA7fiYUQaWG wuQNLzXWzijQElIIZ8kPwk u6C0rGQvmJDghLroRxTjLy FrOkFWl0YgLXc6hLovJ1Ki CORdXbD3qAMoFJOvZZjhZL GsHGBvxtG2mH17TBaakoF9 zPWgb4Ubj58qy526aC3gbQ MoJUB1TCUkIJGsoDHvRSIv TRJ3CVHbxEYnM0xdOOArJE 9rsmmfUAhiDCenODBvjHG5 ZWWuqFJbT1OhPHNmIHpjYV Hypzs3RdApHk0kyMHjpDhu XZyot3fhv7zzzCHeUmk0LI ZfDsFgKwcdIBecl6Ect9tn YVKrdt1tYOT0hMAqcQuwk4 K7yFGsFLJwxRWtNQLoFK8t iOInOWMcdL1izehlAKKuYl UnzdsqXZGgiKogaoTmRv5l kUhuQID4MEtrL5mhmC6bSi O4FGnzG1nlxC2dKPp1VXxd SIPxeQU5atQ4TFCgqONmW6 RuvQ3eJUOcBU9wdal3h7zf HLA4JHmiBHGbYjW0gbP7PY JieUWrRDIxtYivXNczo169 SEN0XeLbGTYxs5TnU5XglC wwX05puAvwK53lZZCdaQjm sC0fqSgsiR0hQeQbHoCrME lcrNtdNA5iFTAfE7fgaYRp NTRhLGAxS5quRcCodU7vkF vyNNfmchKgQXQyThv7VGYz xATdKQUhUsz2FVRvPBDqD1 9kefsaAQY7wB4gi6cvv2Dd WBghUOT6LPQht57lUNsjsk D7BQllJp7lGWYbCgm3I9ov YXJ9fQ== CPT Code(s) (test code m3nizLYpTPSpvAX7OmRtXT = 3357) Uwe2hma2LayEEtxVCvBVhg aQStdlIhmc35uDZ4kY06EP 6fXYPhKlP8VWSwjrL5Usi3 PHBkTLBqkWDtH233z7pyj3 uqujOgaEE7yKcmOFFqFHCa YWluXGZzMjAgODgzMDUsID q2VtZzABTylp0= CLINICAL HISTORY (test a7dpkOCpZVVafJP4UxOuJO code = 3356) Vbu0usv9ThmERizESfCHob iKUgmtUagd08tKB0iD02JF 2oALKfReH1XYCytcD9Ptp0 AWEwHJCabXHbA501u1cqo6 nzuyDinGB3pGchFZPnRMAj OZnqAEJlMkTiVvifbXQ8DR JjW8WtWKDtjPxqEP43iGVW LiBweWxvcmlccGFyfQ== SPECIMEN SOURCE (test j0aspUGoNTMwtGV7SlBuJD code = 3377) Lcl8sxl4KvaTTfjBHcPZdi sAVmayCwpt21qTL1zJ47RB 9qCBNxCqZ4BGUcunQ3Ygv4 TMVrWFCthGHmF056l4bks8 qaxdZmnXL3hKhtCYFaYYRl XYkoBRDvZwPaH3BgbQUfW3 xwYXJ9 GROSS DESCRIPTION (test c4tujNRdQCLzlMY7OtEvPO code = 3366) Kyw5kcn5KifNXasBWqGAwg zKYxzxKgqd21vDO8sZ61XZ 6pWRWoYkX4XOFwdzU8Cst5 PLRoQPNwoFDbR374u0ior5 zjroFcbZL1cDxoXAYvZRDu PQajXECxJcEaS8YoT0qsLJ 4gQSBpcyByZWNlaXZlZCBp ntHfx6IdZLitscBaDFAplG udSHR6nCKsXXBzLLMgWEZb IQ83FMqqPQAxlgMoATmgnR VkaWNhbCByZWNvcmQgbnVt NnVtQALbOUCiABHpw5SkvY ovX5FtnLUgIuUiZW8yWOPz elCfz6TrWY9kXQNbrYJyHT BydbxhaLVfMCe2bMFoTBZg LrWpuBrzj8WgSPDnYZlpIO 67uiKxLU1cYEOjSAzrASrs JCP5OHN8BCRlcUMxj2yrre uoRRFuBYWneBIlpJ7ykwRn caRmcCGwkTK8WFNmiB4poF 54lgKnbuFUZX1wuXNgYZIq cmRccGFyfQ== MICROSCOPIC DESCRIPTION b2rxqGRbWHAfiYK2XcZfFG (test code = 3371) Aik2tze0YvpGKefMLmEZhr bUAwmmKtua38nLH4vM87LW 6oPFPyKoH8BVYpddL6Qta1 WYYoVDPvzWHwA480j4lkx3 jxtyNwpAV7vEiaXMPyMZXu IKijEQItQeSqPJQQWe1ORU VELiBccGFyfQ== SPECIAL STUDIES (test y8jnuDOoINEngAQ6XvLhDW code = 3376) Dmy8vek0AtpINxiAFcCDxz gUIaivZprd17pJB1uF59NW 6tTAKgDoA3RJMtorA5Gbv2 UZJlIIZfkCDeV200GHZiRI MrsMxxecf1bM09MICysR4m iURyQWl4MNHricFesZwdiK 0aByCpJiLxLdHTjITliB62 XZIqshA2NAKuz33ge3GgrY sydoQiLMRsIYlbZ0k3EZFd NMUpTUL9e9Ral6FzoJ6bwB 4qnHsyfT9rjVNvqAX6lejv l9Lcn8UgP6timMQadOIanv IwUWGutgKUHK3KGcKCXE9z R1NBMOqJIwJHQLGTHfkqbF AdNAYgkjIgr4maX6scHTZn XRP6VY9rgcNiKyBnOY2thR 67e2Zei99lc52cnD6itUVj qnKbX16xmRHgtHMng8SfFG PxasYpnBK9CJDuBDblbprh b4q2gWV9kTXkrCOqpOF9xI WvbYCzRZACzVJeAFPaa459 bs1rWBNxwHQmjyBfmH4kXF hgrtvprYUrRI9qVHJlNWAg VURkBM13qaLpSA7qbMXdt1 cvmtAxnROft3FzgAU3AMFa zNYiekdbDl9xNW26IESmEP ftlH3fuWIvrhCpNK0yBE3a K7U4gYLvCVQibuZje4krCI vaOU8tZAIuoPjoKinxNNKz POEgjwZczKT7JMZziSDwGL WwqSKdEOqjnROki9vkc4Ow H6axiXkljDS1MPRvH2njjL EomTE5EUH2oJ4oBWobmgMy MHOaw0PaQWQqTRQnDrH9tP 6sRAI2QzIMpYakMBT9VjJ2 SDgqZXVwBL1mUYplEHxgA0 NytXAlVPEGCNDmu7dtQ3cm CLOke9LjtA2uvTF7wVXbTW QmdHG5RTLfGVP7PZgijXAf TVXaYGAhsLLkwWYkBs2hwV DfZ3VkL0frktQagPVgrPM2 gJDpJTwttzZoTPH7EBCmoR 4xGX5bMCRzrHSmXW6roWAm UCJkCXFyIWHlGHLuz6DrIZ Ared88NGMlWdovqWgaKEOf Cv3dQg7fIHAjjmLzFGW4Mi CWBT1qemehoTNntCzqlx1f NCojNRTLCXThIRJmVXG6GA RtpB9mIWU4tQC4EIA5W1sm E0fqZRSacyVmWZ9lZSAcoD RljcGwOOibRM9xlQNjCIQf k6SdgwifILYpNHV8WWC0HC uhZPEvOJKcCq0gYBXlvZ0k T0XaNHX2gqQwl2ZcObDZyU TrhF71xYYwyc92HCAoNCKg V6ErTAIgCWXnLDqftsIogD xpICDyn46fbZMlrfSap9Mj rtRyLEJfT8diJIJxvPXaiU Vzd8XdtN1dhIOfpfIsXUV2 nMKsNQFqtY7fAFUbbTmxMB CraU8aH5FrUGemRg3oEPQd qnchVL9xtq41MW4drgVuBA 8eeuVkBF83hgHzNjPlHXv1 UAsHXOdGRRx4SOAzyqKjeC SghCEmXDFlvE1abFNaCh3b bSBoaWdoIGNvbXBsZXhpdH krB1ygfzduFWvevYGok7Cf vE3tzJU1GUN6mK4rGajoXT J9 Gross assessment was [facility] performed at ([facility], = 2777) Department of Pathology, [address] [place] [address], Technical component was [facility] performed at ([facility], = 2778) Department of Pathology, [address] [place] [address], Professional component [facility] was performed at ([facility], code = 2779) Department of Pathology, [address] [place] [address], [facility] [id number] 16:32:00 Test Item Value Reference Range Interpretation Comments Case Report (test code Surgical Pathology = 104) Report Case: [id number] Authorizing Provider: Ramiro Up MD Collected: 07/17/2020 02:49 PM Ordering Location: [address] Received: 07/18/2020 08:32 AM Service Pathologist: Khadar Davis MD Specimen: Biopsy, Gastric, spybx ulcer r/o h.pylori DIAGNOSIS (test code = [id number] 3220) FuZzEwMzNcZnRuYmpcdWMx IHtccnRmMVxlcGljOTIwMl iypqTsKBBsgXSyL6Hiudqq IKarZG9gOG6frQremQVjhM JwBSIuIwKkl1hzd367lFFu a8aiRRLVsqnhbDa2uRxgT8 8bt1K9UofuI05eyJXzXJnh bGFpblxmczIwIFBBUlQgQS OPLEEWGgcLLUJEN9RRNUYO Q9JkP6JJRSNHWXHKKEGPB1 ZMIgipHWKoHg4GF9RVM6kY ENMoBfJWT8YTHfJsD7LMPO JPUEFUSFkuXHBhciBORUdB RTzPFWVKM5AyNF3RDIMDFJ 2HJDPMXHXRRBgSI4aWGIJL DOIORDXPNUPpNX8TBIwYQf TQICJZZZECRiSUFa7JTR7k lDAsWJfBMdJODH3mM6MMEc JZIFNUQUlOIEZPUiBIRUxJ O98RSDRKERZyKNFnMqVPTH KJFpRmSIkzWUE7m6wneYBf XHNzdGUxODAwMFxhbnNpXG QuRjohfdtaSQEbYUU2iiQt JNCpFEohFMBqXBweTs8chE SxaLzkKzVbZRMbh8ulitBK aqrkdNr3w6ybRJNmUnL7vC RaLEqsP8tshnKybPVmCSOs VIk1xA46PUUjtB6yoYOgCI rqapCrZfE1GAsmWUMwVnQ6 IBVpnMSqYBPqA8syQADhBO tsDUPjOZknlNWoRFT0yPzf g3Y4mJOzgNLszTneHiNjTw PjFxWPs4PuVBk7lLviB2Dh ZMEgJwR5eQFfEFDmPRkyEB WjDYEetsE6pM90GJshabJ1 wNVks2Ahz88so918kF8xbZ ZaSST3SGDfSBCciVPqIWZr QMY5FAObeKPxL2teLTQzET 1zwbuuXKqfKGcqKMBdbQH6 XIUskQWpP6YsHRZmNJfoSR Crblf1ClRqRl1hkEUdqRxt TGajs7ccd2ysgJLuSfa5WL ZgCfEpAwuwYTvsj9Pag5si HRJsrt1bPWP7qFUanHbhp2 E6vXSxNAPorEKhLKHpKN4v oAOpKFAjhL9dybgpMDRzKx WaywxbTWZbwGijraTkXi0i oJazHUN0NXdtH8kspK8uJh E9ZLncQ1vqtU0oEUd1ICbw UJAfiKP9toS3NTAjlMZcL4 HkbU8oKGXtSX3xjmy1j2om AIF9TTatSXPiZzG1gdW8QF BsyJNxSGNmvXfjJGwqe715 APG3WfDpGXCkf8LuM7HdvX itB92llXagI62qNUVqxJlw fY4kiSqflF0xRjYnSwMqTB vxfBgrKZ5eSRUnQ9mrtHXr IIIjPDOdT5zpXqNeqE6kfP bmGCndkwEgQXTgSfx6AOXs zRBxDOJmNkt3JTGoCCNdD4 5eqrpzEYZ9mO9sh5rso0Dv MXsqGYQ1JHUmd73fODvwzh H4WYcsOk0xBHNpRdl0Y0cs YXJ9fQ== CPT Code(s) (test code k0vsvBCwFGGtjTF9OtMkOX = 3357) Ctp6bnv2LbaQJdkTVuISkf aTBbsjUowu04iTQ8lW68FX 8eFDDlLcR6ZAQylpI0Zwv2 DIShWAMhfFLrX152w8cqo9 dpoqCysKF9fCghHQKhQPQg YWluXGZzMjAgODgzMDUsID u3YgNtGEPpkg4= CLINICAL HISTORY (test d7ygxCTjQJKkkSR7CfUpDH code = 3356) Sgj0hed5OqpLXgxHEgXBdx hHVtcwKhsa21kHH6lK90XZ 6xDJVuFcL6YDMmzrJ5Zeh5 TONdIEUadVGxN651k8mpx6 csuwDjrDS3pKxzGVNdIDXs CGfyCASjSkNlEoledAN4HP ZrG2UrUFKftChmIJ28wRBH LiBweWxvcmlccGFyfQ== SPECIMEN SOURCE (test t8ntzWSrNCLcoQJ2KhFtUT code = 3377) Cpn7luz4TtiXOfnTPdEKzi iNYaxoSinq70cVA9jC72ZM 3lJYTyIaV7HKLrlgT0Djx7 TICqNMGucXNjU953d9gxj1 hnotGdzFM7mTanTYTeCSEk UZoyJYRjOtNfD9CofPUpR3 xwYXJ9 GROSS DESCRIPTION (test i9geyETbDJLpjTU4PnMtXG code = 3366) Fdm3bkd2DinREifDPxXXfp fHPzdjZmjw47xXX5mW92CI 8wLYVxZcY2QDRzzaJ2Imu8 YCJzLJPqcBIhJ244m3tsj0 gemjCglCB4mAkmREYqZHOo HHsfDSTzGkHxU9OaB6oqLF 4gQSBpcyByZWNlaXZlZCBp yqRrg4XgBQoxesOwOPOthN grMTX2iTAgITEvPKLvIVAi PD19MVcgXPAxpjEqXCwtwK VkaWNhbCByZWNvcmQgbnVt GvJgINPgXCDpLWBno1TlkZ xvJ7KujVCiHdAjJV8fYSFj uxXzy7AvMU2vRYEzaHXzKX AqgxqqyXYuENi3qZPzCGFk ScXprHujb4FkRCJyUDxuJS 79jgNhIY3zHHXaRZduFKjt GSR7ZQP5TQDbtVQbe9eurw meSFOkTOKdyNVcgF3kqhWr fyMauILtwEZ7WAXnkP0wpF 84ptNemvKRZI2ooVGtYANl cmRccGFyfQ== MICROSCOPIC DESCRIPTION h1stoZNsZDCfaGF1MaEzTQ (test code = 3371) Mtm2zgs7LayBKofIDtJQvw mRHdhmIfvb66bSZ0fQ46YR 4pJQWkCcK0TKGbteO5Ptj0 PPQsLEIdnXZhO855m1xzr2 jroyLtwOT2mPrkWESxDQAy ZGumYBTxIvDhYPJBKo5WDD VELiBccGFyfQ== SPECIAL STUDIES (test o8fyrMVeWYCqcJP5RsTaSN code = 3376) Buf9izd7PkpMQchPLpQEkm hNKjpaRiqe36sVY2pG53OK 3qPSKnUhJ6JGIlwwJ6Inn1 KJXvXVUowKNnY760CSJtIM OrcYxgapd3wA51TVSviP7v xJCbEPp0PXMrdsXrlAsviB 9mJoFdIyMhKsNUzIZjzG59 YURjceU3MIDmz03ay6VxwY rgsnPdZSXkYPqfX5c8NCYq VKDtVJI8i2Vgv3KcvX0bzX 5nvRcznH7fxGDaoNZ0gwlb i1Jes3GpP5zfgUWlgHGwig TfPYEumoGDIJ6OJsGKRP1f V0QTYAsZAvZWVZQCYlvdhC AuXLJbpiRbu5rgC3hgIKIe OAP4QK9vrtRjYjEoRY7brP 35t1Tio50fh30rcW0hkVLl ttIgL42ipFGvjGVya7FkEA ImnoAbzNB5SXCdVVxsfond e3v7bAV1hIGahXBydYK7nB VgwJXoVGERuFJaCKYfs889 ea2rFDKxcYJkkyKceG7gFI dfaoztuERwVU8bRNAaIXVl TEFmDB97cgMiOV8nxSNvt8 xxbtOkpPTns8KlaJC7BEZk aMQrxypcCy2vYP28OPIsRQ nnfL2ymNVtbaVfZS0nMR3s B6C8cROfATGdrbGng0yxOB ewXN3rLIHxiUnjZrplIVRz MJMgqoGhtJZ2JZQjwINnGD QsiQCfASxgzJNpx7fly8Lx J1qthNinxWP5VKMjS7nuiP UvtYA6JBV1hM1sWQxxpdIz KGSxr3VxWSTvQCNaQpN1rY 4iIKC3BmYUbYuzOZT2VlE5 TDfbXBKdPD0sZYiqGRvrQ7 QgfAIrXBJOGHPfq1opB5ty VJLgf9UieT1bwQZ2rRJtIN MexRL4WTYbGXT8QKmcxZOj QJUbPHBrbBKybMZqNl7lnQ WzW7YzZ3xjvnAuuDKfmUF8 lGQyMWudffAbTCY4TMOccM 4pBC7pCDKutOXyCG4ytXKm LLWzSEJxIJCnVFVge3QaEN Tujf06GQNfLxfelXbdOHMz Wn1aWv7cUDSeuiQtLCM4Ce ZUDN3bqvfvmYJdgGhmmi3r GYzyIXFFGUZvYSGhFCR1HV ApeU9nUGM7mLG7PRV7Z4ie C7aiQWSqdfUnOB7kKRNlwP PwdhOdYHmoQL8suULlMMCh r6JpflanBIIrDKY6RWX9UX ymRNHoLGOpKl8nCQIzvW4j T3BuRHE6tzRcy8MdHnUSbQ WzaU97kODweq85YIAgSOSo P3QiUWVmJUTxDKuqtaBhhN zsPMDqw38gqSThnrAmp7Uw jpHxQSUjZ4zaNADctEYsrX Smp6DjiL2khVJocqFnZER5 sSOaTQQdvU7eVJFfjKdoCK RvtY4vH7GsZMqeEt7hHFTe rqccUQ8ogv73IC5ddyLfZN 7ixqShMW99vvQiCcZzEAq8 KBoENKlVFNa0DBMtmdGpkN KpxSNpTCZhmO5cvLXaSt5j bSBoaWdoIGNvbXBsZXhpdH ngA6eqtjhzOAqthYCor4Cp uW8mpMY3VXI0qR1jQtukKM J9 Gross assessment was [facility] performed at (test code [facility], = 2777) Department of Pathology, [address] [place] [address] 27049, Technical component was [facility] performed at ([facility], = 2778) Department of Pathology, [address] [place] [address] 03388, Professional component [facility] was performed at ([facility], code = 2779) Department of Pathology, [address] [place] [address], [facility] CenterTissue [id number] 16:32:00 Test Item Value Reference Range Interpretation Comments Case Report (test code Surgical Pathology = 104) Report Case: [id number] Authorizing Provider: Ramiro Up MD Collected: 07/17/2020 02:49 PM Ordering Location: [address] Received: 07/18/2020 08:32 AM Service Pathologist: Khadar Davsi MD Specimen: Biopsy, Gastric, spybx ulcer r/o h.pylori DIAGNOSIS (test code = [id number] 3220) FuZzEwMzNcZnRuYmpcdWMx IHtccnRmMVxlcGljOTIwMl uwwyYpMZGolWFsI0Wpzkpk SGchRR2nTQ0tfHhxxAEkuU UfKGElEdCdh6lym777mQZe h9dlTINPxwhttVm9tGqjV9 1qr2R6HhavW81dkUTsQUna bGFpblxmczIwIFBBUlQgQS NAQIKXMnvWZSKOD3KKOWHH Z2FhR1VDKVDOGJXQAOWXB1 NKOfbbXTPcUi3JQ2WSB8lM WNFfFcHZG9YCJqCgJ6ARGT JPUEFUSFkuXHBhciBORUdB JIkDVKRTM5IiSI6LGENIMW 9CSBSRSQCJXXoRJ2iTKKLM GVHKFEPRJVFmQW6BCCbHAj GJRYZTNSPAVxAAPk2PDG6w qALtCHpVNbENYJ5aI9XOGx JZIFNUQUlOIEZPUiBIRUxJ Y18FJHLYMWJsVEQlOtGWVG EQGuKiMCnrIDH4t7einFOd XHNzdGUxODAwMFxhbnNpXG YeDpijcddyPCRoVSM2pbCm JVOcJFdyGGSgDIleNh3nhF NqjVykYzSgQRDde2ncelZX lxivjFp8c6gaEVEuLqS9nF QaBQjqX1slqoPvoUScBJAe VFq4yS08ESKmhB0unPBiIN mpilGcCwE8GBagIHGyAxS5 MHJvmMMiAQZnK9bqTRYpCX yiYKOdLUldyJMwJZV4qXxb o1J5hLAvmLGbdNkcLbFmBa RwGnPYz6HzVOi0iWcdS3Hp KAIdThL7tYNaSDLgWZevHH OxEFWhlsG0tL21CMaafdZ3 aFQmz2Eje96wt158bH5krR HoYRJ3WILgRYNdyQBzFLIf ADF8QWHysUZwG6qcGBIhXJ 8gzzwnYNagMZrrMAWqzDG1 NFSakOXmA4PwWVSjMDckTR Nlyfm3ImGgLm7kpGLsiFxh BAqtw5oiv7skqHKoGuj9FS VsVeIuEnisNBect4Wcq7bi KOEjps1tJFI8vFPeyQsth9 R0aMYwYUXmoIFxNOGhSQ0m zRSmNQLktF6oesrjCFLaLa VkfqgoOCUlrUyqeaAoMd8j dFbvEXL4AVnfB6qprD5yZj B3BTucB4vwsK4uXWt0BCfe ZOAntRV3yaP1JXQtkUPnV7 VwdR7xDHLcLI9bzls9s0jx QDR3TLggJQUsTzM4ovA9WY CgaCLaTPUsaUfmZLhmt351 IXV6MmFuTHTml6OdP0ZlvM abP93myBclG48jDHRowAov gO3vyJvkbT7tXgEfOrUdIM gynOagFW2wXIJzM9xspTTj BNGpLEIjO4gmSdUalR6ckT xxGDokpmCyKXQsZkg8KLHt mLHoORLiLjc3MSIwNSDeC2 8wvoejKIX8gZ7hy0xcs7Zc OKwkPRU3BURgm13jRDslxd S6NZjkZh5jMTCkArc4B1ev YXJ9fQ== CPT Code(s) (test code l9qfwJFqSGJttGB3VfZzZM = 3357) Ism2uwz7DhaUJljKHjPYrl nMFmcpOvpb07pIF0lX77OT 8aWOFyMrN3NNSwulI3Pyu6 ERPoHKGakROzY322w1xuk5 usvrKrlEG4dKyqQVCuQPOb YWluXGZzMjAgODgzMDUsID z0KnDaTQOepk3= CLINICAL HISTORY (test b2ixzALmGZIboQL6JuEmMK code = 3356) Chx5alq7OrwQCmoTQfOCdv oLZcjpKany78gCI2fK49QW 4tNURzXjC8DJAlzmB3Fmo2 RKGfMVXhmVZqR933u2vhy8 cexzDvoRG5cFbuFOIoTSHt EUbxBARcQhMvOyjosXG9BY BdP5XtHLRmzOxsFJ74cCAN LiBweWxvcmlccGFyfQ== SPECIMEN SOURCE (test k8hegGHeCBRjuCZ9BcMhMA code = 3377) Gqf2tic0YzhHTsuRVdFHtg eGJpkjQzqj37sST8pI74YO 8lXJUgNzR8UGWetlY3Byr7 RQThWYSqzGXzN298l3ewn1 kjiqUtlZO1rAdkAGAlRUSy LXjlVUTxSqPbF0LzpFDqS7 xwYXJ9 GROSS DESCRIPTION (test s0knwAQwATTzjYM2AuOcVE code = 3366) Twq8ynn5FpuBPlbQXnOSvi iJHspqHgrk62kEM1vN51YV 4iCTRlNyW4MKBfphX7Oqy2 XSJbGGCwzYKhF964h1jyu3 btdyHpdEN1kJcmTCLyRDEo SOxcJXRqVsBxS5JxT3orSF 4gQSBpcyByZWNlaXZlZCBp wbHep4ToKCufgrPsRUNtfX vbDRB2pOVfXOAoLOUvLBHv ZB81DUgvIQKqhpWlWWyibY VkaWNhbCByZWNvcmQgbnVt HaEqRNMtNXWyZRKrk2PbzI vfJ3QniATqApYaCJ7xOGUz tlYtf6UsCS9wAGHyjGEuPU BiollqwXVwNBx9mBCbETKe OrCkdEqwt1YmGGAjHSqsSX 94mcPtMQ0zAHEfUGnhMZqy QYZ3MAM5MIDlgPSoo1hyqu wfKXTsKSHopQGewJ2kptQa arPwbDJrjRT3PJHjaR9vyB 75fnVqepTRFM5efVXeISQv cmRccGFyfQ== MICROSCOPIC DESCRIPTION d4fdtTGlSOGcgNT4UoIaIK (test code = 3371) Jck1ttp7AsvRIqxRGlRWvd tNWrdoZswb62lCK7mQ17WH 3qYVJxNfS1UGFawiI3Zye4 HNIwFJValXOcV979h5fbo1 vyqkUcfCS1bIzuGPPeXUMe EHtzVUWqFbFlKTFFXi6OHC VELiBccGFyfQ== SPECIAL STUDIES (test g7yciLVwIDVsxCS0SkOgKY code = 3376) Yks7egj6SjlZOvfCBmXSnx zGOnijUfzt49aHE3aI08BI 7pZMZgRuA2LANsiqT2Ydx9 GTXxYKUsvYZpK328HVRbQE QszQpynqu1mN98NSJxzQ9i xTXfMUp3OQEstlWykRtuuV 1hSoPgViWbRgHRfAUcdV97 XGCzdxM0BSLgc92ci3ZwlH ltocZlNMUmYZiuV4o7FBAs AWBdDQQ0p7Ugv0XkgI8ltK 2doWyvkT7gdHUrbVS2shox j2Lno2KkQ7rgbGUytCYmvh BeIREogkVVAF4YPxDGRE1v I2LRWUfGSwJVLTAMQhsaxO PoQBGxisSzn3liU6ebRVQh FLA0QH8labPcLzQlVW4tkV 76u2Jiw86be27tiG8yzEEp mwUvQ06ymMZptQJxi7XzYW GtxtRnqRR9JIEvSWzcqpna j1v0zMJ4vZAxxNCmlVV0dB HdfBNrWPCViZSuTPMbh947 ai0xSBQrqPStnvSskA0hIZ yzvcwypHQgJF8hAQAeDHPb ITBmDO72giIoZD2gdXQam3 kyctVobDChj9WxsQS6GMUb iRHssyirHd0oWU26IEYzMJ tmaQ5xwYSjhxFoCN0zHE0v X5V3rQLdHCDgptTmk5ysSL uvYG2qXXTudGcmQckqUVCk ARQegtFinFE4FSZucQQqHS LwjKCdGTeklSSuj3dja3Kz P1lecRebuPH3HGMcV2bnfD BneGS5YTW8yK7cULsnirYt MXNir8ThUTXaTAVqFaH6vZ 8qKCZ8FaSPcFsrLLG8LkR2 ADzqKMVyAP0lNMxcTKhzI2 WuiGEdRJIVVSDci7qvL0ol AXKhf5CurK6efXF0uNJxQY TsrXN7OEVxOAB1YJflsPQn BHYvDQIarURksLRzMa1keF YoO2IkP6hkmtXgdXEudEM0 zKKpAYebnlBvDOX6IOOwjX 2hJX0fUVVbeVFuVO0lzXSm ZXMiMUNdVGFzUNFdl4JuSX Euxf04MSZpTccdiXidNKXi Pd4iJu0sNFOdekSfPJX7Jw XSJT6zqiidrIZfbHcvye3y EAduMPBXFCDyOLQeYKD4QY YizM3xENI6yPF4LJO9N3ep H4yxCBViwgInQA6sWVHksJ KaldTyNZrvHY6ciDNgLWKc k5MgksjsJDGoJTR9VLD6GY chOJZwDHSlIg5cHYTvbA0n P6MiVJJ8svHpb9BbPcBHjG YrnC71xAXmqh30FOWzVIQm V9DjZTVdTILjVUrejwVaiI lwBOMvw57isDBrfqMtw4Ll wbHdCASkV3inEYFzpPXgeY Ftj8WsuK6jmGLrglIzPPT8 eMDcZKUntL6yCALobIleKA NcdZ0aT2MzDZsiNc5sKMNw oopfFC6unt31HR1qdeKjBR 7miiToYJ24bbRoWfDwHXb5 MZaLTOkBWGk9KRFkebMbnK VvaLTvVEHwbA2ixLWrBg8n bSBoaWdoIGNvbXBsZXhpdH gdG9idmyezXBlfyVAkp0Ka mA5epKX6PHY7dE1bPhhrLB J9 Gross assessment was [facility] performed at ([facility], = 0863) Department of Pathology, [address] [place] [address] 06091, Technical component was [facility] performed at ([facility], = 2778) Department of Pathology, [address] [place] [address] 75789, Professional component [facility] was performed at ([facility], code = 2779) Department of Pathology, [address] [place] [address] 1907[address], [facility] CenterTISSUE [id number] 16:32:00Surgical Pathology Report Case: [id number] Authorizing Provider: Ramiro Up MD Collected: 07/17/2020 02:49 PM Ordering Location: [address] Received: 07/18/2020 08:32 AM Service Pathologist: Khadar Davis MD Specimen: Biopsy, Gastric, spybx ulcer r/o h.pylori PART A GASTRIC BIOPSY FOR SUSPECTED ULCER:NONSPECIFIC REACTIVE GASTROPATHY.NEGATIVE FOR INTESTINAL METAPLASIA, D YSPLASIA, OR INVASIVE CARCINOMA.WARTHIN STARRY STAIN FOR HELICOBACTER IS NEGATIVE. Signing Pathologist Direct Phone Line: [phone] signed by Khadar Davis MD on 07/18/2020 at 4:32 [id number], [id number] ulcer, rule out H. pyloriGastricSpecimen A is received in formalin labelledwith the patient's name, medical record number and " biopsy, gastric" and consists of 3 perry-pink irregular soft tissue fragments (0.2 cm in greatest dimension). The specimen is submitted in toto in A1.PERFORMED. The interpretation of this case included the use of immunohistochemistry or special stains.BLOCK A1- WARTHIN STARRYControl Slides Examined: In-house known positive controls were evaluated along with the test tissue. These control slides run alongside of the patients sample show appropriate staining. Internal positive and negative controls when available are evaluated Immunohistochemistry technical testing was performed at [facility], Pathology Laboratory where it was developed and its performance characteristics were determined. It has not been cleared or approved bythe U.S. Food and Drug Administration. The FDA has determined that such clearance or approval is notnecessary. The test is used for clinical purposes. It should not be regarded as investigational or for research. This laboratory is certified under the Clinical Laboratory Improvement Amendments of 1988 (CLIA-88) as qualified to perform high complexity clinical laboratory testing.[facility], Department of Pathology, [address] [place] [address], [facility], [address] [place] [address] 064[address], [facility], Department of Pathology, [address] [place] [address] 16608, [facility] Metabolic [id number] 04:41:00 Test Item Value Reference Range Interpretation Comments Sodium (test code = 140 meq/L 402-900 5511-2) Potassium (test code = 3.7 meq/L 3.5-5.1 2823-3) Chloride (test code = 105 meq/L 98-107 2075-0) CO2 (test code = 28 meq/L 22-29 8-9) BUN (test code = 18 mg/dL 7-21 3094-0) Creatinine (test code 0.82 mg/dL 0.57-1.25 = 2160-0) Glucose (test code = 107 mg/dL 70-105 H 2345-7) Calcium (test code = 8.2 mg/dL 8.4-10.2 L 24909-6) EGFR (test code = 92 mL/min/1.[place] [address]-6) NOT ACCURATE CREATININE CLEARANCE IN PREDICTING GLOMERULAR FILTRATION RATE . ESTIMATED GFR I S NOT APPLICABLE FOR DIALYSIS PATIENTS. GERARDO (test code = GERARDO) Section Gang ID - ELSA M Lab Interpretation Abnormal (test code = 50801-9) [facility] Center[facility] Metabolic [id number] 04:41:00 Test Item Value Reference Range Interpretation Comments Sodium (test code = 140 meq/L 600-705 7179-2) Potassium (test code = 3.7 meq/L 3.5-5.1 2823-3) Chloride (test code = 105 meq/L 98-107 2075-0) CO2 (test code = 28 meq/L 22-2027-) BUN (test code = 18 mg/dL - 3094-0) Creatinine (test code 0.82 mg/dL 0.57-1.25 = 2160-0) Glucose (test code = 107 mg/dL 70-105 H 2345-7) Calcium (test code = 8.2 mg/dL 8.4-10.2 L 32942-4) EGFR (test code = 92 mL/min/1.[place] [address]-3) NOT ACCURATE CREATININE CLEARANCE IN PREDICTING GLOMERULAR FILTRATION RATE . ESTIMATED GFR I S NOT APPLICABLE FOR DIALYSIS PATIENTS. GERARDO (test code = GERARDO) Section Gang ID - ELSA M Lab Interpretation Abnormal (test code = 57138-7) [facility] Metabolic [id number] 04:41:00 Test Item Value Reference Range Interpretation Comments Sodium (test code = 140 meq/L 732-374 5043-2) Potassium (test code = 3.7 meq/L 3.5-5.1 2823-3) Chloride (test code = 105 meq/L 98-107 2075-0) CO2 (test code = 28 meq/L -2027-9) BUN (test code = 18 mg/dL - 3094-0) Creatinine (test code 0.82 mg/dL 0.57-1.25 = 2160-0) Glucose (test code = 107 mg/dL 70-105 H 2345-7) Calcium (test code = 8.2 mg/dL 8.4-10.2 L 73655-6) EGFR (test code = 92 mL/min/1.[place] [address]-1) NOT ACCURATE CREATININE CLEARANCE IN PREDICTING GLOMERULAR FILTRATION RATE . ESTIMATED GFR I S NOT APPLICABLE FOR DIALYSIS PATIENTS. GERARDO (test code = GERARDO) Section Gang ID - ELSA M Lab Interpretation Abnormal (test code = 94084-7) [facility] Metabolic [id number] 04:41:00 Test Item Value Reference Range Interpretation Comments Sodium (test code = 140 meq/L 628-957 1567-2) Potassium (test code = 3.7 meq/L 3.5-5.1 2823-3) Chloride (test code = 105 meq/L 98-107 2075-0) CO2 (test code = 28 meq/L -2027-) BUN (test code = 18 mg/dL - 3094-0) Creatinine (test code 0.82 mg/dL 0.57-1.25 = 2160-0) Glucose (test code = 107 mg/dL 70-105 H 2345-7) Calcium (test code = 8.2 mg/dL 8.4-10.2 L 87213-7) EGFR (test code = 92 mL/min/1.[place] [address]-2) NOT ACCURATE CREATININE CLEARANCE IN PREDICTING GLOMERULAR FILTRATION RATE . ESTIMATED GFR I S NOT APPLICABLE FOR DIALYSIS PATIENTS. GERARDO (test code = GERARDO) Section Gang ID - ELSA M Lab Interpretation Abnormal (test code = 28015-5) [facility] Metabolic [id number] 04:41:00 Test Item Value Reference Range Interpretation Comments Sodium (test code = 140 meq/L 532-054 3130-2) Potassium (test code = 3.7 meq/L 3.5-5.1 2823-3) Chloride (test code = 105 meq/L 98-107 2075-0) CO2 (test code = 28 meq/L -2027-9) BUN (test code = 18 mg/dL - 3094-0) Creatinine (test code 0.82 mg/dL 0.57-1.25 = 2160-0) Glucose (test code = 107 mg/dL 70-105 H 2345-7) Calcium (test code = 8.2 mg/dL 8.4-10.2 L 51950-8) EGFR (test code = 92 mL/min/1.[place] [address]-1) NOT ACCURATE CREATININE CLEARANCE IN PREDICTING GLOMERULAR FILTRATION RATE . ESTIMATED GFR I S NOT APPLICABLE FOR DIALYSIS PATIENTS. GERARDO (test code = GERARDO) Section Gang ID - ELSA M Lab Interpretation Abnormal (test code = 06299-6) [facility] METABOLIC [id number] 04:41:00 Test Item Value Reference Range Interpretation [...] S NOT APPLICABLE FOR DIALYSIS PATIEN TS. Section Gang ID - ELSA emoglobin and smfmenwtkh5231-75-95 04:17:00 Test Item Value Reference Range Interpretation [...] = 4544-3) GERARDO (test code = GERARDO) Section Gang ID - 6000 Lab Interpretation Abnormal (test code = 10690-3) [facility] CenterHem[facility] and dbudntzttc8425-90-40 04:17:00 Test Item Value Reference Range Interpretation [...] = 4544-3) GERARDO (test code = GERARDO) Section Gang ID - 6000 Lab Interpretation Abnormal (test code = 64152-9) [facility] Center[facility]em[facility] and ufbvkueexz3926-55-54 04:17:00 Test Item Value Reference Range Interpretation [...] = 4544-3) GERARDO (test code = GERARDO) Section Gang ID - 6000 Lab Interpretation Abnormal (test code = 55708-1) [facility] Center[facility]em[facility] and qymaeagomn6365-68-54 04:17:00 Test Item Value Reference Range Interpretation [...] = 4544-3) GERARDO (test code = GERARDO) Section Gang ID - 6000 Lab Interpretation Abnormal (test code = 04048-3) [facility] Center[facility] and grvejqfhce0866-32-77 04:17:00 Test Item Value Reference Range Interpretation [...] = 4544-3) GERARDO (test code = GERARDO) Section Gang ID - 6000 Lab Interpretation Abnormal (test code = 58556-4) [facility] CenterHEMOGLOBIN AND [id number] 04:17:00 Test Item Value Reference Range Interpretation Comments HEMOGLOBIN (BEAKER) (test code = 8.0 GM/DL 13.7-17.5 L 410) HEMATOCRIT (BEAKER) (test code = 23.7 % 40.1-51.0 L 411) Section Gang ID - 6000BASIC METABOLIC [id number] 15:51:00 Test Item Value Reference Range Interpretation [...] APPLICABLE FOR DIALYSIS PATIEN TS. BASIC METABOLIC [id number] 07:21:00 Test Item Value Reference Range Interpretation [...] S NOT APPLICABLE FOR DIALYSIS PATIEN TS. Section Gang ARABELLA HermosilloPUbqvckpsu5167-38-24 07:19:00 Test Item Value Reference Range Interpretation Comments Magnesium (test code = 1.9 mg/dL 1.6-2.6 11983-7) GERARDO (test code = GERARDO) Section Gang ARABELLA HUNTER M Lab Interpretation (test Normal code = 06840-2) [facility] Center[facility]2021-[facility]-02 07:19:00 Test Item Value Reference Range Interpretation Comments Magnesium (test code = 1.9 mg/dL 1.6-2.6 09090-9) GERARDO (test code = GERARDO) Section Gang ID - ELSA M Lab Interpretation (test Normal code = 84867-1) [facility]2021-03-02 07:19:00 Test Item Value Reference Range Interpretation Comments Magnesium (test code = 1.9 mg/dL 1.6-2.6 60740-3) GERARDO (test code = GERARDO) Section Gang ID - ELSA Lab Interpretation (test Normal code = 25482-8) [facility]2021-03-02 07:19:00 Test Item Value Reference Range Interpretation Comments Magnesium (test code = 1.9 mg/dL 1.6-2.6 87185-4) GERARDO (test code = GERARDO) Section Gang ID - ELSA Lab Interpretation (test Normal code = 60292-1) [facility]2021-03-02 07:19:00 Test Item Value Reference Range Interpretation Comments Magnesium (test code = 1.9 mg/dL 1.6-2.6 46609-3) GERARDO (test code = GERARDO) Section Gang ID - ELSA Lab Interpretation (test Normal code = 98647-6) [facility]2021-03-02 07:19:00 Test Item Value Reference Range Interpretation Comments MAGNESIUM (BEAKER) (test code = 1.9 mg/dL 1.6-2.6 627) Section Gang ID - ELSA MCBC with platelet count + automated kiep6112-63-51 07:00:00 Test Item Value Reference Range Interpretation Comments WBC (test code = 6690-2) 7.2 See_Comment [A utomated message] The system [employer] generated this result transmitted ref erence range: 3.5 - 10 .5 K/L. The refe rence range was not u sed to interpret this result as normal/abnor mal. RBC (test code = 789-8) 2.65 See_Comment L [Au tomated message] The system [employer] generated this result transmitted ref erence range: 4.63 - 6 .08 M/L. The refe rence range was not u sed to interpret this result as normal/abnor mal. MCHC (test code = 786-4) 33.6 See_Comment L [A utomated message] The system [employer] generated this result transmitted ref erence range: [...] See_Comment [Aut omated message] 777-3) The system [employer] generated this result transmitted ref erence range: 150 - 45 0 K/CU MM. The referen ce range was not u sed to interpret this result as normal/abnor mal. MPV (test code = 10.3 fL 9.4-12.4 53825-8) nRBC (test code = 413) 1 See_Comment H [Aut omated message] The system [employer] generated this result transmitted ref erence range: [...] H [Aut omated message] 670) The system [employer] generated this result transmitted ref erence range: 1.78 - 5 .38 K/L. The refe rence range was not u sed to interpret this result as normal/abnor mal. # Lymphs (test code = 0.45 See_Comment L [Auto mated message] 414) The system [employer] generated this result transmitted ref erence range: 1.32 - 3 .57 K/L. The refe rence range was not u sed to interpret this result as normal/abnor mal. # Monos (test code = 0.99 See_Comment H [Autom ated message] 415) The system [employer] generated this result transmitted ref erence range: 0.30 - 0 .82 K/L. The refe rence range was not u sed to interpret this result as normal/abnor mal. # Eos (test code = 416) 0.27 See_Comment [Au tomated message] The system [employer] generated this result transmitted ref erence range: 0.04 - 0 .54 K/L. The refe rence range was not u sed to interpret this result as normal/abnor mal. # Baso (test code = 417) 0.03 See_Comment [A utomated message] The system [employer] generated this result transmitted ref erence range: 0.01 - 0 .08 K/L. The refe rence range was not u sed to interpret this result as normal/abnor mal. Immature 1 % 0-1 Granulocytes-Relative (test code = 2801) Lab Interpretation (test Abnormal code = 86331-5) [facility] [id number] 07:00:00 Test Item Value Reference Range Interpretation Comments WBC (test code = 6690-2) 7.2 See_Comment [A utomated message] The system [employer] generated this result transmitted ref erence range: 3.5 - 10 .5 K/L. The refe rence range was not u sed to interpret this result as normal/abnor mal. RBC (test code = 789-8) 2.65 See_Comment L [Au tomated message] The system [employer] generated this result transmitted ref erence range: 4.63 - 6 .08 M/L. The refe rence range was not u sed to interpret this result as normal/abnor mal. MCHC (test code = 786-4) 33.6 See_Comment L [A utomated message] The system [employer] generated this result transmitted ref erence range: [...] See_Comment [Aut omated message] 777-3) The system [employer] generated this result transmitted ref erence range: 150 - 45 0 K/CU MM. The referen ce range was not u sed to interpret this result as normal/abnor mal. MPV (test code = 10.3 fL 9.4-12.4 24430-4) nRBC (test code = 413) 1 See_Comment H [Aut omated message] The system [employer] generated this result transmitted ref erence range: [...] H [Aut omated message] 670) The system [employer] generated this result transmitted ref erence range: 1.78 - 5 .38 K/L. The refe rence range was not u sed to interpret this result as normal/abnor mal. # Lymphs (test code = 0.45 See_Comment L [Auto mated message] 414) The system [employer] generated this result transmitted ref erence range: 1.32 - 3 .57 K/L. The refe rence range was not u sed to interpret this result as normal/abnor mal. # Monos (test code = 0.99 See_Comment H [Autom ated message] 415) The system [employer] generated this result transmitted ref erence range: 0.30 - 0 .82 K/L. The refe rence range was not u sed to interpret this result as normal/abnor mal. # Eos (test code = 416) 0.27 See_Comment [Au tomated message] The system [employer] generated this result transmitted ref erence range: 0.04 - 0 .54 K/L. The refe rence range was not u sed to interpret this result as normal/abnor mal. # Baso (test code = 417) 0.03 See_Comment [A utomated message] The system [employer] generated this result transmitted ref erence range: 0.01 - 0 .08 K/L. The refe rence range was not u sed to interpret this result as normal/abnor mal. Immature 1 % 0-1 Granulocytes-Relative (test code = 2801) Lab Interpretation (test Abnormal code = 09176-7) [facility] with platelet count + automated [id number] 07:00:00 Test Item Value Reference Range Interpretation Comments WBC (test code = 6690-2) 7.2 See_Comment [A utomated message] The system [employer] generated this result transmitted ref erence range: 3.5 - 10 .5 K/L. The refe rence range was not u sed to interpret this result as normal/abnor mal. RBC (test code = 789-8) 2.65 See_Comment L [Au tomated message] The system [employer] generated this result transmitted ref erence range: 4.63 - 6 .08 M/L. The refe rence range was not u sed to interpret this result as normal/abnor mal. MCHC (test code = 786-4) 33.6 See_Comment L [A utomated message] The system [employer] generated this result transmitted ref erence range: [...] code = 219 See_Comment [Aut omated message] 707-3) The system [employer] generated this result transmitted ref erence range: 150 - 45 0 K/CU MM. The referen ce range was not u sed to interpret this result as normal/abnor mal. MPV (test code = 10.3 fL 9.4-12.4 33152-6) nRBC (test code = 413) 1 See_Comment H [Aut omated message] The system [employer] generated this result transmitted ref erence range: [...] H [Aut omated message] 670) The system [employer] generated this result transmitted ref erence range: 1.78 - 5 .38 K/L. The refe rence range was not u sed to interpret this result as normal/abnor mal. # Lymphs (test code = 0.45 See_Comment L [Auto mated message] 414) The system [employer] generated this result transmitted ref erence range: 1.32 - 3 .57 K/L. The refe rence range was not u sed to interpret this result as normal/abnor mal. # Monos (test code = 0.99 See_Comment H [Autom ated message] 415) The system [employer] generated this result transmitted ref erence range: 0.30 - 0 .82 K/L. The refe rence range was not u sed to interpret this result as normal/abnor mal. # Eos (test code = 416) 0.27 See_Comment [Au tomated message] The system [employer] generated this result transmitted ref erence range: 0.04 - 0 .54 K/L. The refe rence range was not u sed to interpret this result as normal/abnor mal. # Baso (test code = 417) 0.03 See_Comment [A utomated message] The system [employer] generated this result transmitted ref erence range: 0.01 - 0 .08 K/L. The refe rence range was not u sed to interpret this result as normal/abnor mal. Immature 1 % 0-1 Granulocytes-Relative (test code = 2801) Lab Interpretation (test Abnormal code = 53236-8) [facility] with platelet count + automated [id number] 07:00:00 Test Item Value Reference Range Interpretation Comments WBC (test code = 6690-2) 7.2 See_Comment [A utomated message] The system [employer] generated this result transmitted ref erence range: 3.5 - 10 .5 K/L. The refe rence range was not u sed to interpret this result as normal/abnor mal. RBC (test code = 789-8) 2.65 See_Comment L [Au tomated message] The system [employer] generated this result transmitted ref erence range: 4.63 - 6 .08 M/L. The refe rence range was not u sed to interpret this result as normal/abnor mal. MCHC (test code = 786-4) 33.6 See_Comment L [A utomated message] The system [employer] generated this result transmitted ref erence range: [...] See_Comment [Aut omated message] 777-3) The system [employer] generated this result transmitted ref erence range: 150 - 45 0 K/CU MM. The referen ce range was not u sed to interpret this result as normal/abnor mal. MPV (test code = 10.3 fL 9.4-12.4 82325-3) nRBC (test code = 413) 1 See_Comment H [Aut omated message] The system [employer] generated this result transmitted ref erence range: [...] H [Aut omated message] 670) The system [employer] generated this result transmitted ref erence range: 1.78 - 5 .38 K/L. The refe rence range was not u sed to interpret this result as normal/abnor mal. # Lymphs (test code = 0.45 See_Comment L [Auto mated message] 414) The system [employer] generated this result transmitted ref erence range: 1.32 - 3 .57 K/L. The refe rence range was not u sed to interpret this result as normal/abnor mal. # Monos (test code = 0.99 See_Comment H [Autom ated message] 415) The system [employer] generated this result transmitted ref erence range: 0.30 - 0 .82 K/L. The refe rence range was not u sed to interpret this result as normal/abnor mal. # Eos (test code = 416) 0.27 See_Comment [Au tomated message] The system [employer] generated this result transmitted ref erence range: 0.04 - 0 .54 K/L. The refe rence range was not u sed to interpret this result as normal/abnor mal. # Baso (test code = 417) 0.03 See_Comment [A utomated message] The system [employer] generated this result transmitted ref erence range: 0.01 - 0 .08 K/L. The refe rence range was not u sed to interpret this result as normal/abnor mal. Immature 1 % 0-1 Granulocytes-Relative (test code = 2801) Lab Interpretation (test Abnormal code = 27037-8) [facility] with platelet count + automated [id number] 07:00:00 Test Item Value Reference Range Interpretation Comments WBC (test code = 6690-2) 7.2 See_Comment [A utomated message] The system [employer] generated this result transmitted ref erence range: 3.5 - 10 .5 K/L. The refe rence range was not u sed to interpret this result as normal/abnor mal. RBC (test code = 789-8) 2.65 See_Comment L [Au tomated message] The system [employer] generated this result transmitted ref erence range: 4.63 - 6 .08 M/L. The refe rence range was not u sed to interpret this result as normal/abnor mal. MCHC (test code = 786-4) 33.6 See_Comment L [A utomated message] The system [employer] generated this result transmitted ref erence range: [...] See_Comment [Aut omated message] 777-3) The system [employer] generated this result transmitted ref erence range: 150 - 45 0 K/CU MM. The referen ce range was not u sed to interpret this result as normal/abnor mal. MPV (test code = 10.3 fL 9.4-12.4 14906-7) nRBC (test code = 413) 1 See_Comment H [Aut omated message] The system [employer] generated this result transmitted ref erence range: [...] H [Aut omated message] 670) The system [employer] generated this result transmitted ref erence range: 1.78 - 5 .38 K/L. The refe rence range was not u sed to interpret this result as normal/abnor mal. # Lymphs (test code = 0.45 See_Comment L [Auto mated message] 414) The system [employer] generated this result transmitted ref erence range: 1.32 - 3 .57 K/L. The refe rence range was not u sed to interpret this result as normal/abnor mal. # Monos (test code = 0.99 See_Comment H [Autom ated message] 415) The system [employer] generated this result transmitted ref erence range: 0.30 - 0 .82 K/L. The refe rence range was not u sed to interpret this result as normal/abnor mal. # Eos (test code = 416) 0.27 See_Comment [Au tomated message] The system [employer] generated this result transmitted ref erence range: 0.04 - 0 .54 K/L. The refe rence range was not u sed to interpret this result as normal/abnor mal. # Baso (test code = 417) 0.03 See_Comment [A utomated message] The system [employer] generated this result transmitted ref erence range: 0.01 - 0 .08 K/L. The refe rence range was not u sed to interpret this result as normal/abnor mal. Immature 1 % 0-1 Granulocytes-Relative (test code = 2801) Lab Interpretation (test Abnormal code = 35472-6) [facility] W/PLT COUNT & AUTO [id number] 07:00:00 Test Item Value Reference Range Interpretation [...] Not Detected, (test code = Negative, See 76821-1) external report for linked test SARS-COV-2 [facility] PERFORMING LAB (test code = 18124-5) GERARDO (test code = Negative result for [...] of the Act. Fact Sheet for Healthcare Providers:https://www.[employer]/sites/default/f nazanin/product/documents/F act_Sheet_HC_Providers_L lpm_BGVX-IfY-7.pdf Fact Sheet for Healthcare Patients:https://www.[employer]/sites/default/fi les/product/documents/Fa ct_Sheet_Patients_Lyra_S ARS-CoV-2.pdf Performing Laboratory:[facility] [place] [address] [facility]Asymptomatic ONLY)2020-07-17 00:09:00 Test Item Value Reference Range Interpretation Comments SARS-COV2/RT-PCR Negative Not Detected, (test code = Negative, See 35845-6) external report for linked test SARS-COV-2 [facility] PERFORMING LAB (test code = 79768-5) GERARDO (test code = Negative result for [...] of the Act. Fact Sheet for Healthcare Providers:https://www.[employer]el.[employer]/sites/default/f nazanin/product/documents/F act_Sheet_HC_Providers_L pdx_LXHS-LaR-5.pdf Fact Sheet for Healthcare Patients:https://www.shonda del.com/sites/default/fi les/product/documents/Fa ct_Sheet_Patients_Lyra_S ARS-CoV-2.pdf Performing Laboratory:[facility] [place] [address] [facility] (Asymptomatic ONLY)2020-07-17 00:09:00 Test Item Value Reference Range Interpretation Comments SARS-COV2/RT-PCR Negative Not Detected, (test code = Negative, See 31503-6) external report for linked test SARS-COV-2 [facility] PERFORMING LAB (test code = 83479-3) GERARDO (test code = Negative result for [...] of the Act. Fact Sheet for Healthcare Providers:https://www.[employer]tap.[employer]/sites/default/f nazanin/product/documents/F act_Sheet_HC_Providers_L vch_WBAG-NkL-6.pdf Fact Sheet for Healthcare Patients:https://www.[employer]/sites/default/fi les/product/documents/Fa ct_Sheet_Patients_Lyra_S ARS-CoV-2.pdf Performing Laboratory:[facility] [place] [address] [facility] (Asymptomatic ONLY)2020-07-17 00:09:00 Test Item Value Reference Range Interpretation Comments SARS-COV2/RT-PCR Negative Not Detected, (test code = Negative, See 01843-3) external report for linked test SARS-COV-2 [facility] PERFORMING LAB (test code = 39929-3) GERARDO (test code = Negative result for [...] of the Act. Fact Sheet for Healthcare Providers:https://www.[employer]/sites/default/f nazanin/product/documents/F act_Sheet_HC_Providers_L qqm_GZWD-OrD-4.pdf Fact Sheet for Healthcare Patients:https://www.[employer].com/sites/default/fi les/product/documents/Fa ct_Sheet_Patients_Elizabeth_S ARS-CoV-2.pdf Performing Laboratory:[facility] [place] [address] [facility] (Asymptomatic ONLY)2020-07-17 00:09:00 Test Item Value Reference Range Interpretation Comments SARS-COV2/RT-PCR Negative Not Detected, (test code = Negative, See 42223-9) external report for linked test SARS-COV-2 [facility] PERFORMING LAB (test code = 09421-1) GERARDO (test code = Negative result for [...] of the Act. Fact Sheet for Healthcare Providers:https://www.[employer]/sites/default/f nazanin/product/documents/F act_Sheet_HC_Providers_L lng_UUZD-FuY-3.pdf Fact Sheet for Healthcare Patients:https://www.[employer]/sites/default/fi les/product/documents/Fa ct_Sheet_Patients_Lyra_S ARS-CoV-2.pdf Performing Laboratory:[facility]-PCR ([facility])2020-07-17 00:09:00 Test Item Value Reference Range Interpretation Comments SARS-COV2/RT-PCR (test Negative Not Detected, Negative, code = 4847807) See external report for linked test SARS-COV-2 PERFORMING LAB [facility] (test code = 4204919) Negative result for this test determines that [...] individuals suspected of COVID-19 by their healthcare provider.This test [...] justifying the authorization of the emergency use ofin vitro diagnostic tests for detection and/or diagnosis of COVID-19 is terminated under Section 564(b)(2) of the Act or the EUA is revoked under Section 564(g) of the Act.Fact Sheet for Healthcare Prov iders:https://www.[employer]/sites/default/files/product/documents/Fact_Sheet_HC _Fwebvpcqf_Yacx_VVJQ-YgO-8.pdfFact Sheet for Healthcare Patients:https://www.[employer]/sites/default/files/product/docume nts/Ytlt_Wyats_Gpltaxhz_Ytcl_CLWH-BxS-7.pdfPerforming Laboratory:[facility], [place] [id number] 20:18:00 Test Item Value Reference Range Interpretation Comments Ferritin (test code = 101.20 ng/mL 5.00-275.00 2276-4) GERARDO (test code = GERARDO) Section Gang ID - BS Lab Interpretation (test Normal code = 81320-2) [facility]00 Test Item Value Reference Range Interpretation Comments Ferritin (test code = 101.20 ng/mL 5.00-275.00 2276-4) GERARDO (test code = GERARDO) Section Gang ID - BS Lab Interpretation (test Normal code = 33895-3) [facility] 20:18:00 Test Item Value Reference Range Interpretation Comments Ferritin (test code = 101.20 ng/mL 5.00-275.00 2276-4) GERARDO (test code = GERARDO) Section Gang ID - BS Lab Interpretation (test Normal code = 94625-4) [facility] 20:18:00 Test Item Value Reference Range Interpretation Comments Ferritin (test code = 101.20 ng/mL 5.00-275.00 2276-4) GERARDO (test code = GERARDO) Section Gang ID - BS Lab Interpretation (test Normal code = 17408-0) [facility] 20:18:00 Test Item Value Reference Range Interpretation Comments Ferritin (test code = 101.20 ng/mL 5.00-275.00 2276-4) GERARDO (test code = GERARDO) Section Gang ID - BS Lab Interpretation (test Normal code = 57061-7) [facility] 20:18:00 Test Item Value Reference Range Interpretation Comments FERRITIN (BEAKER) (test code = 101.20 ng/mL 5.00-275.00 361) Section Gang ID - BSB-type Natriuretic Factor (BNP)2020-07-16 19:58:00 Test Item Value Reference Range Interpretation Comments BNP (test code = 80555-2) 344 pg/mL 0-100 H GERARDO (test code = GERARDO) Section Gang ID - BS Lab Interpretation (test Abnormal code = 54786-7) [facility], TIBC, % sat. (without ferritin)2020-07-16 19:58:00 Test Item Value Reference Range Interpretation Comments Iron (test code = 2498-4) 32.0 ug/dL 40.0-160.0 L TIBC (test code = 2500-7) 174 ug/dL 250-450 L Iron % Saturation (test code 18 % 20-55 L = 2502-3) GERARDO (test code = GERARDO) Section Gang ID - BS Lab Interpretation (test Abnormal code = 78832-9) [facility] (BNP)2020-07-16 19:58:00 Test Item Value Reference Range Interpretation Comments BNP (test code = 69237-1) 344 pg/mL 0-100 H GERARDO (test code = GERARDO) Section Gang ID - BS Lab Interpretation (test Abnormal code = 21525-6) [facility], TIBC, % sat. (without ferritin)2020-07-16 19:58:00 Test Item Value Reference Range Interpretation Comments Iron (test code = 2498-4) 32.0 ug/dL 40.0-160.0 L TIBC (test code = 2500-7) 174 ug/dL 250-450 L Iron % Saturation (test code 18 % 20-55 L = 2502-3) GERARDO (test code = GERARDO) Section Gang ID - BS Lab Interpretation (test Abnormal code = 80352-3) [facility] (BNP)2020-07-16 19:58:00 Test Item Value Reference Range Interpretation Comments BNP (test code = 91692-9) 344 pg/mL 0-100 H GERARDO (test code = GERARDO) Section Gang ID - BS Lab Interpretation (test Abnormal code = 90705-0) [facility], TIBC, % sat. (without ferritin)2020-07-16 19:58:00 Test Item Value Reference Range Interpretation Comments Iron (test code = 2498-4) 32.0 ug/dL 40.0-160.0 L TIBC (test code = 2500-7) 174 ug/dL 250-450 L Iron % Saturation (test code 18 % 20-55 L = 2502-3) GERARDO (test code = GERARDO) Section Gang ID - BS Lab Interpretation (test Abnormal code = 67475-5) [facility] (BNP)2020-07-16 19:58:00 Test Item Value Reference Range Interpretation Comments BNP (test code = 55419-8) 344 pg/mL 0-100 H GERARDO (test code = GERARDO) Section Gang ID - BS Lab Interpretation (test Abnormal code = 15977-0) [facility], TIBC, % sat. (without ferritin)2020-07-16 19:58:00 Test Item Value Reference Range Interpretation Comments Iron (test code = 2498-4) 32.0 ug/dL 40.0-160.0 L TIBC (test code = 2500-7) 174 ug/dL 250-450 L Iron % Saturation (test code 18 % 20-55 L = 2502-3) GERARDO (test code = GERARDO) Section Gang ID - BS Lab Interpretation (test Abnormal code = 63612-9) [facility] (BNP)2020-07-16 19:58:00 Test Item Value Reference Range Interpretation Comments BNP (test code = 16327-1) 344 pg/mL 0-100 H GERARDO (test code = GERARDO) Section Gang ID - BS Lab Interpretation (test Abnormal code = 78676-9) [facility], TIBC, % sat. (without ferritin)2020-07-16 19:58:00 Test Item Value Reference Range Interpretation Comments Iron (test code = 2498-4) 32.0 ug/dL 40.0-160.0 L TIBC (test code = 2500-7) 174 ug/dL 250-450 L Iron % Saturation (test code 18 % 20-55 L = 2502-3) GERARDO (test code = GERARDO) Section Gang ID - BS Lab Interpretation (test Abnormal code = 70129-6) [facility] NATRI[facility] FA[facility] (BNP)2020-07-16 19:58:00 Test Item Value Reference Range Interpretation Comments B-TYPE NATRIURETIC PEPTIDE (BEAKER) 344 pg/mL 0-100 H (test code = 700) Section Gang ID - BSIRON, TIBC, % SAT. (WITHOUT FERRITIN)2020-07-16 19:58:00 Test Item Value Reference Range Interpretation Comments IRON (BEAKER) (test code = 547) 32.0 ug/dL 40.0-160.0 L TOTAL IRON BINDING CAPACITY 174 ug/dL 250-450 L (BEAKER) (test code = 769) IRON % SATURATION (2) (BEAKER) 18 % 20-55 L (test code = 2590) Section Gang ID - BSABORH, [id number] 17:08:00 Test Item Value Reference Range Interpretation Comments ABO Grouping (test code = 2588) A Rh Factor (test code = 2589) [facility] [id number] 17:08:00 Test Item Value Reference Range Interpretation Comments ABO Grouping (test code = 2588) A Rh Factor (test code = 2589) POS [facility], [id number] 17:08:00 Test Item Value Reference Range Interpretation Comments ABO Grouping (test code = 2588) A Rh Factor (test code = 2589) POS [facility], [id number] 17:08:00 Test Item Value Reference Range Interpretation Comments ABO Grouping (test code = 2588) A Rh Factor (test code = 2589) POS [facility], [facility]ST, 1 VIEW, NON [id number] 17:07:00Reason for exam:->ABNORMAL LABShould this be performed at the bedside?->Yes [facility] 1945 Sex: MFINAL REPORT TECHNIQUE: Frontal view of the chest. INDICATION: 74-year-old man with abnormal lab. COMPARISON: Chest radiograph 09/08/2015. FINDINGS: LINES/TUBES: None. LUNGS: Lungs are well inflated. No consolidation or pulmonary edema. No significant change in bilateral calcified granulomas. PLEURA: No pneumothorax or significant pleural effusion. HEART AND MEDIASTINUM: Cardiomediastinal silhouette is within normal limits. BONES AND SOFT TISSUES: And intact median sternotomy wires. Soft tissues are unremarkable. IMPRESSION:No acute cardiopulmonary abnormalities. Signed: Sheree Cannoneport Verified Date/Time: 07/16/2020 17:07:35 Reading Location: [address] Consult Reading Ro om Type and screen, automated ([facility] and [facility] only)2020-07-16 16:56:00 Test Item Value Reference Range Interpretation Comments ABO/RH AUTOMATED (BEAKER) (test A POSITIVE code = 2260) Ab Scrn (test code = 890-4) NEGATIVE [facility] ([facility]) 2020-07-16 16:56:00 Test Item Value Reference Range Interpretation Comments ABO/RH AUTOMATED (BEAKER) (test A POSITIVE code = 2260) Ab Scrn (test code = 890-4) NEGATIVE [facility] ([facility]) 2020-07-16 16:56:00 Test Item Value Reference Range Interpretation Comments ABO/RH AUTOMATED (BEAKER) (test A POSITIVE code = 2260) Ab Scrn (test code = 890-4) NEGATIVE [facility] ([facility] and [facility] only) 2020-07-16 16:56:00 Test Item Value Reference Range Interpretation Comments ABO/RH AUTOMATED (BEAKER) (test A POSITIVE code = 2260) Ab Scrn (test code = 890-4) NEGATIVE [facility], automated ([facility] and [facility] only) 2020-07-16 16:56:00 Test Item Value Reference Range Interpretation Comments ABO/RH AUTOMATED (BEAKER) (test A POSITIVE code = 2260) Ab Scrn (test code = 890-4) NEGATIVE [facility] CenterComprehensive metabolic [id number] 16:33:00 Test Item Value Reference Range Interpretation [...] 2.4 g/dL 3.5-5.0 L Specime n slightly 77225-8) hemolyzed Alkaline Phosphatase 45 U/L 40-150 (test code = 6768-6) Total Bilirubin (test 0.2 mg/dL 0.2-1.2 Specim en slightly code = 1975-2) hemolyzed Sodium (test code = 138 meq/L 897-176 3043-2) Potassium (test code 2.7 meq/L 3.5-5.1 L [...] (test code = 7.4 mg/dL 8.4-10.2 L 82160-3) AST (test code = 37 U/L 5-34 H Specimen sl ightly 1920-8) hemolyzed ALT (test code = 36 U/L 6-55 Specimen sl ightly 1742-6) hemolyzed EGFR (test code = 117 mL/min/1[place] [address]-4) NOT ACCURATE CREATININE CLEARANCE IN PREDICTING GLOMERULAR FILTRATION RATE . ESTIMATED GFR I S NOT APPLICABLE FOR DIALYSIS PATIEN TS. CARRILLO (test code = GERARDO) Section Gang ID - ELSA Finney Lab Interpretation Abnormal (test code = 26227-1) [facility] CenterCom[facility] [id number] 16:33:00 Test Item Value Reference Range Interpretation [...] 2.4 g/dL 3.5-5.0 L Specime n slightly 42991-3) hemolyzed Alkaline Phosphatase 45 U/L 40-150 (test code = 6768-6) Total Bilirubin (test 0.2 mg/dL 0.2-1.2 Specim en slightly code = 1975-2) hemolyzed Sodium (test code = 138 meq/L 724-085 4677-2) Potassium (test code 2.7 meq/L 3.5-5.1 L [...] (test code = 7.4 mg/dL 8.4-10.2 L 62395-3) AST (test code = 37 U/L 5-34 H Specimen sl ightly 1920-8) hemolyzed ALT (test code = 36 U/L 6-55 Specimen sl ightly 1742-6) hemolyzed EGFR (test code = 117 mL/min/1.[place] [address]-6) NOT ACCURATE CREATININE CLEARANCE IN PREDICTING GLOMERULAR FILTRATION RATE . ESTIMATED GFR I S NOT APPLICABLE FOR DIALYSIS PATIEN TS. GERARDO (test code = GERARDO) Section Gang ID - ELSA M Lab Interpretation Abnormal (test code = 99659-8) [facility]Com[facility] [id number] 16:33:00 Test Item Value Reference Range Interpretation [...] 2.4 g/dL 3.5-5.0 L Specime n slightly 75277-5) hemolyzed Alkaline Phosphatase 45 U/L 40-150 (test code = 6768-6) Total Bilirubin (test 0.2 mg/dL 0.2-1.2 Specim en slightly code = 1975-2) hemolyzed Sodium (test code = 138 meq/L 324-885 6932-2) Potassium (test code 2.7 meq/L 3.5-5.1 L [...] (test code = 7.4 mg/dL 8.4-10.2 L 00424-5) AST (test code = 37 U/L 5-34 H Specimen sl ightly 1920-8) hemolyzed ALT (test code = 36 U/L 6-55 Specimen sl ightly 1742-6) hemolyzed EGFR (test code = 117 mL/min/1.[place] [address]-8) NOT ACCURATE CREATININE CLEARANCE IN PREDICTING GLOMERULAR FILTRATION RATE . ESTIMATED GFR I S NOT APPLICABLE FOR DIALYSIS PATIEN TS. GERARDO (test code = GERARDO) Section Gang ID - ELSA M Lab Interpretation Abnormal (test code = 14147-2) [facility] [id number] 16:33:00 Test Item Value Reference Range Interpretation [...] 2.4 g/dL 3.5-5.0 L Specime n slightly 32407-6) hemolyzed Alkaline Phosphatase 45 U/L 40-150 (test code = 6768-6) Total Bilirubin (test 0.2 mg/dL 0.2-1.2 Specim en slightly code = 1975-2) hemolyzed Sodium (test code = 138 meq/L 721-587 0558-2) Potassium (test code 2.7 meq/L 3.5-5.1 L Specime n slightly = 2823-3) hemolyzed Chloride (test code = 106 meq/L 98-107 2075-0) CO2 (test code = 23 meq/L 22-29 2028-9) BUN (test code = 30 mg/dL 7-21 H 3094-0) Creatinine (test code 0.67 mg/dL 0.57-1.25 Specim en slightly = 2160-0) hemolyzed Glucose (test code = 104 mg/dL 70-105 2345-7) Calcium (test code = 7.4 mg/dL 8.4-10.2 L 75627-3) AST (test code = 37 U/L 5-34 H Specimen sl ightly 1920-8) hemolyzed ALT (test code = 36 U/L 6-55 Specimen sl ightly 1742-6) hemolyzed EGFR (test code = 117 mL/min/1.[place] [address]-5) NOT ACCURATE CREATININE CLEARANCE IN PREDICTING GLOMERULAR FILTRATION RATE . ESTIMATED GFR I S NOT APPLICABLE FOR DIALYSIS PATIEN TS. GERARDO (test code = GERARDO) Section Gang ID - ELSA M Lab Interpretation Abnormal (test code = 71210-8) [facility] [id number] 16:33:00 Test Item Value Reference Range Interpretation [...] 2.4 g/dL 3.5-5.0 L Specime n slightly 40564-5) hemolyzed Alkaline Phosphatase 45 U/L 40-150 (test code = 6768-6) Total Bilirubin (test 0.2 mg/dL 0.2-1.2 Specim en slightly code = 1975-2) hemolyzed Sodium (test code = 138 meq/L 439-545 4586-2) Potassium (test code 2.7 meq/L 3.5-5.1 L [...] (test code = 7.4 mg/dL 8.4-10.2 L 01392-0) AST (test code = 37 U/L 5-34 H Specimen sl ightly 1920-8) hemolyzed ALT (test code = 36 U/L 6-55 Specimen sl ightly 1742-6) hemolyzed EGFR (test code = 117 mL/min/1.[place] [address]-0) NOT ACCURATE CREATININE CLEARANCE IN PREDICTING GLOMERULAR FILTRATION RATE . ESTIMATED GFR I S NOT APPLICABLE FOR DIALYSIS PATIEN TS. GERARDO (test code = GERARDO) Section Gang ID - ELSA M Lab Interpretation Abnormal (test code = 82449-3) [facility] CenterCOMPREHENSIVE METABOLIC [id number] 16:33:00 Test Item Value Reference Range Interpretation [...] S NOT APPLICABLE FOR DIALYSIS PATIEN TS. Section Gang ID - ELSA [facility] W/PLT COUNT & AUTO [id number] 16:15:00 Test Item Value Reference Range Interpretation [...] 0-1 PERCENT (BEAKER) (test code = 2801) [id number] 16:12:00 Test Item Value Reference Interpretation Comments [...] valves. Lab Interpretation Abnormal (test code = 69893-6) [facility]2020-[facility]-16 16:12:00 Test Item Value Reference Range Interpretation Comments PTT (test code = 36276-1) 30.7 See_Comment [ Automated message] The system whic h generated this result transmitted ref erence range: 22.5 - 3 6.0 seconds. The re ference range was not u sed to interpret this result as normal/abnor mal. Lab Interpretation (test Normal code = 01843-7) [id number] 16:12:00 Test Item Value Reference Interpretation Comments [...] valves. Lab Interpretation Abnormal (test code = 96490-2) [facility] 16:12:00 Test Item Value Reference Range Interpretation Comments PTT (test code = 20460-6) 30.7 See_Comment [ Automated message] The system [employer] generated this result transmitted ref erence range: 22.5 - 3 6.0 seconds. The re ference range was not u sed to interpret this result as normal/abnor mal. Lab Interpretation (test Normal code = 67812-0) [id number] 16:12:00 Test Item Value Reference Interpretation Comments [...] valves. Lab Interpretation Abnormal (test code = 43025-3) [facility] 16:12:00 Test Item Value Reference Range Interpretation Comments PTT (test code = 89983-5) 30.7 See_Comment [ Automated message] The system [employer] generated this result transmitted ref erence range: 22.5 - 3 6.0 seconds. The re ference range was not u sed to interpret this result as normal/abnor mal. Lab Interpretation (test Normal code = 78958-5) [facility][id number] 16:12:00 Test Item Value Reference Interpretation Comments [...] valves. Lab Interpretation Abnormal (test code = 28180-6) [facility] 16:12:00 Test Item Value Reference Range Interpretation Comments PTT (test code = 91677-0) 30.7 See_Comment [ Automated message] The system whic h generated this result transmitted ref erence range: 22.5 - 3 6.0 seconds. The re ference range was not u sed to interpret this result as normal/abnor mal. Lab Interpretation (test Normal code = 80048-9) [id number] 16:12:00 Test Item Value Reference Interpretation Comments [...] valves. Lab Interpretation Abnormal (test code = 50373-7) [facility] 16:12:00 Test Item Value Reference Range Interpretation Comments PTT (test code = 19289-0) 30.7 See_Comment [ Automated message] The system [employer] generated this result transmitted ref erence range: 22.5 - 3 6.0 seconds. The re ference range was not u sed to interpret this result as normal/abnor mal. Lab Interpretation (test Normal code = 83344-7) [facility]/[id number] 16:12:00 Test Item Value Reference Range Interpretation Comments PROTIME (BEAKER) 15.8 seconds 11.9-14.2 H (test code = 759) INR (BEAKER) (test 1.30 See_Comment [Automat ed message] code = 370) The system [employer] generated this result transmitted ref erence range: <=5.90. The reference range was not used to int erpret this result as normal/abnormal . Effective 10/13/2018: PT Reference Range ChangeNew: 11.9-14.2 Previous: 11.7- 14.7RECOMMENDED COUMADIN/WARFARIN INR THERAPY RANGESSTANDARD DOSE: 2.0-3.0 Includes: PROPHYLAXIS for venous thrombosis, systemic embolization; TREATMENT for venous thrombosis and/or pulmonary embolus.HIGH RISK: Target INR is 2.5-3.5 for patients wiht mechanical heart valves.[id number] 16:12:00 Test Item Value Reference Range Interpretation Comments PARTIAL THROMBOPLASTIN TIME 30.7 seconds 22.5-36.0 (BEAKER) (test code = 760)
[2022-06-09 21:21] LABS: Absolute Lymphocytes (CBC) 0.2 K/uL (0.7-4.9); Hematocrit 29.6 % (39.6-49.0); Lymphocytes % 1.3 % (15.3-44.8); MCV 98.5 fL (80-100); MPV 9.2 fL (7.6-11.3); RBC Red Blood Cell Count 3.01 M/uL (4.33-5.43)
[2022-06-09 21:35] LABS: Protime INR 1.24
[2022-06-09 21:41] LABS: Bilirubin Total 0.5 mg/dL (0.2-1.0); Protein, Total 7.6 g/dL (6.4-8.2)
--- NOTE | 2022-06-09 21:46 | RAD REPORT ---
EXAM DESCRIPTION: RAD - Chest Single View - 06/09/2022 8:57 pm CLINICAL HISTORY: Cough, history of malignancy COMPARISON: Portable 08/24/2021 TECHNIQUE: AP portable chest image was obtained 06/09/2022 8:57 pm . FINDINGS: Lung volumes are low. Numerous granulomatous calcifications scattered in both lung rolle. Increased interstitial and alveolar opacities present in the mid left lung field only partially expl ained by the shallow inspiration. Left-sided Port-A-Cath has been placed since prior imaging. Sternot nanda wires are in place. Heart and vasculature are normal. No measurable pleural effusion and no pneumothorax. No acute bony abnormality seen. No acute aortic findings suspected. IMPRESSION: Suspected left lung field pneumonia accentuated by shallow inspiration.
[2022-06-09 21:57] LABS: SARS-COV-2 RT PCR NEGATIVE (NEGATIVE)
[2022-06-09] MEDS ORDERED: AZITHROMYCIN 500 MG INJ IVPB ONE (22:25)
[2022-06-09] MEDS ORDERED: ACETAMINOPHEN 650MG/RECT SUPP PR ONE (22:25)
[2022-06-09] MEDS ORDERED: NA CHLORIDE 0.9% 1,000 ML ONE (22:25)
[2022-06-09] MEDS ORDERED: NA CHLORIDE 0.9% 250 ML ONE (22:25)
[2022-06-09] MEDS ORDERED: CEFTRIAXONE 1000 MG/VIAL ONE (22:25)
[2022-06-09 22:51] LABS: Urine Blood Negative (Negative); Urine Glucose Negative (Negative); Urine Protein 2+ (Negative); Urine Specific Gravity 1.015 (1.005-1.030)
--- NOTE | 2022-06-09 22:56 | EDPHYS ---
Physician Documentation [facility] Name: Juan Antonio Mooney Age: 76 yrs Sex: Male : 1945 Arrival Date: 06/09/2022 Time: 20:37 Bed 17 Private MD: ED Physician Steve Cruz HPI: 06/09 21:45 This 76 yrs old Male presents to ER via EMS with complaints of AMS. rn 21:45 The patient has shortness of breath at rest. Onset: The symptoms/episode began/occurred rn today. Duration: The symptoms are continuous. The patient's shortness of breath is aggravated by nothing, is alleviated by sitting up, application of supplemental oxygen. Associated signs and symptoms: Pertinent positives: non-productive cough, fever, vomiting, Pertinent negatives: hemoptysis. Severity of symptoms: At their worst the symptoms were moderate in the emergency department the symptoms have improved. The patient has not experienced similar symptoms in the past. The patient has been recently seen by a physician:. 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 Has swallowing issues and told in past might need feeding tube. NO abd pain. + vomiting. . Historical: - Allergies: 20:45 Tramadol HCl; kd3 - Immunization history:: Adult Immunizations up to date, Client reports receiving the 2nd dose of the Covid vaccine. - Social history:: Smoking status: unknown. - Family history:: not pertinent. - Hospitalizations: : Patient was recently seen at. ROS: 21:45 Constitutional: + fever Eyes: Negative for injury, pain, redness, and discharge, Neck: rn Negative for injury, pain, and swelling, Cardiovascular: Negative for chest pain, palpitations, and edema, Respiratory: + cough and sob. Abdomen/GI: negative for abd pain, + vomiting MS/Extremity: Negative for injury and deformity, Skin: Negative for injury, rash, and discoloration, Neuro: + generalized weakness Exam: 21:45 Constitutional: This is a well developed, well nourished patient who is awake, alert, rn + moderate tachypnea Head/Face: Normocephalic, atraumatic. Eyes: Pupils equal round and reactive to light, extra-ocular motions intact. Lids and lashes normal. Conjunctiva and sclera are non-icteric and not injected. Cornea within normal limits. Periorbital areas with no swelling, redness, or edema. ENT: dry MM Cardiovascular: Tachycardic, regular. No pulse deficits. Respiratory: + mild tachypnea, no retractions Abdomen/GI: Soft, non-tender Skin: Warm, dry MS/ Extremity: Pulses equal, no cyanosis. Neuro: Awake and alert, GCS 15, oriented to person, place, and situation. Motor strength 4/5 in all extremities. Sensory grossly intact. Vital Signs: 20:38 BP 155 / 83; Pulse 103; Resp 23; Temp 100.8(O); Pulse Ox 90% on 3 lpm NC; Weight 70.44 kd3 kg; Height 5 ft. 6 in. (167.64 cm); 22:52 BP 142 / 77; Pulse 109; Resp 24; Pulse Ox 94% on 4 lpm NC; kd3 23:41 BP 121 / 62; Pulse 102; Resp 20; Temp 98.8(O); Pulse Ox 95% ; kd3 23:55 BP 113 / 65; Pulse 98; Resp 19; Pulse Ox 90% on 4 lpm NC; kd3 20:38 Body Mass Index 25.07 (70.44 kg, 167.64 cm) kd3 MDM: 20:40 Patient medically screened. rn 22:53 Differential diagnosis: pneumonia, Pneumothorax pulmonary edema. rn 22:55 Antibiotic administration: Rocephin and Zithromax given. Data reviewed: vital signs, rn nurses notes, lab test result(s), EKG, radiologic studies, plain films, and as a result, I will admit patient. Counseling: I had a detailed discussion with the patient and/or guardian regarding: the historical points, exam findings, and any diagnostic results supporting the discharge/admit diagnosis, lab results, radiology results, the need for further work-up and treatment in the hospital. Response to treatment: the patient's symptoms have mildly improved after treatment, and as a result, I will admit patient. 22:56 ED course: Pt does not have end organ damage at this time, thus does not meet criteria rn for severe sepsis, normal lactate. Abx administered after cultures obtained. Pending CT chest to further eval and rule out PE. . 06/09 20:41 Order name: Blood Culture Adult (2) rn 06/09 20:41 Order name: CBC with Diff; Complete Time: 00:19 rn 06/09 20:41 Order name: CMP; Complete Time: 21:51 rn 06/09 20:41 Order name: Lactate w/ 2H reflex if indic.; Complete Time: 21:51 rn 06/09 20:41 Order name: Protime (+inr); Complete Time: 21:51 rn 06/09 20:41 Order name: Ptt, Activated; Complete Time: 21:51 rn 06/09 20:41 Order name: Urine Culture rn 06/09 20:41 Order name: Urine Microscopic Only; Complete Time: 00:19 rn 06/09 20:43 Order name: COVID-19/FLU A+B; Complete Time: 22:19 rn 06/09 21:56 Order name: Glucose, Ancillary Testing; Complete Time: 22:19 EDMS 06/09 22:52 Order name: Urine Dipstick-Ancillary; Complete Time: 22:53 EDMS 06/09 23:03 Order name: Manual Differential; Complete Time: 00:19 EDMS 06/10 03:56 Order name: CBC with Automated Diff; Complete Time: 18:11 EDMS 06/10 04:04 Order name: Basic Metabolic Panel; Complete Time: 18:11 EDMS 06/09 20:41 Order name: Chest Single View XRAY; Complete Time: 21:51 rn 06/09 20:41 Order name: EKG; Complete Time: 20:43 rn 06/09 20:41 Order name: Accucheck; Complete Time: 21:52 rn 06/09 20:41 Order name: Cardiac monitoring; Complete Time: 21:36 rn 06/09 20:41 Order name: EKG - Nurse/Tech; Complete Time: 21:17 rn 06/09 20:41 Order name: IV Saline Lock - Large Bore; Complete Time: 21:36 rn 06/09 22:55 Order name: CT Chest For PE Angio rn 06/10 04:04 Order name: Phosphorus; Complete Time: 18:11 EDMS 06/10 04:04 Order name: Magnesium; Complete Time: 18:11 EDMS 06/10 12:03 Order name: Sputum Culture; Complete Time: 18:11 EDMS 06/10 14:42 Order name: Basic Metabolic Panel; Complete Time: 18:11 EDMS 06/09 20:41 Order name: Labs collected and sent; Complete Time: 21:36 rn 06/09 20:41 Order name: O2 Per Protocol; Complete Time: 21:36 rn 06/09 20:41 Order name: O2 Sat Monitoring; Complete Time: 21:36 rn 06/09 20:41 Order name: Urine Dipstick-Ancillary (obtain specimen); Complete Time: 22:53 rn 06/09 20:41 Order name: Vital Signs; Complete Time: 22:53 rn Administered Medications: 22:42 Drug: Acetaminophen Suppository 650 mg Route: OR; kd3 06/10 08:05 Follow up: Response: No adverse reaction db 06/09 22:42 Drug: NS 0.9% 1000 ml Route: IV; Rate: 1000 ml; Site: right antecubital; 3 22:42 Drug: Rocephin (cefTRIAXone) 1 grams Route: IV; Rate: calculated rate; Site: right 3 antecubital; 23:32 Follow up: IV Status: Completed infusion; IV Intake: 10ml 22:42 Drug: Zithromax (azithromycin) 500 mg Route: IVPB; Infused Over: 1 hrs; Site: right 3 antecubital; Disposition Summary: 06/09/22 22:56 Hospitalization Ordered Hospitalization Status: Inpatient Admission rn Provider: Axel Montalvo rn Condition: Stable rn Problem: new rn Symptoms: have improved rn Bed/Room Type: Standard rn Location: Telemetry/MedSurg (Inpatient)(06/10/22 17:45) Room Assignment: [facility](06/10/22 19:48) eb Diagnosis - Pneumonia, unspecified organism rn - Hypoxemia rn Forms: - Medication Reconciliation Form rn - SBAR form rn Signatures: Dispatcher [employer] EDChioma Mcnair Roman, MD MD rn Smirch, Shelby, RN RN Soraya Wahl RN Mario Pizano RN RN Juanita Ho RN RN eb1 Susan Riggs RN RN kd3 Anna Martins PA-C PARajivC Teagan Cote RN db Corrections: (The following items were deleted from the chart) 22:53 20:41 [place] ordered. rn kd3 06/10 01:32 06/09 22:56 Telemetry/MedSurg (Inpatient) rn cg 06/10 01:32 06/09 22:56 rn cg 06/10 16:31 01:32 BR ER HOLD cg bd 16:31 01:32 ERHOLD- cg bd 16:36 16:31 Telemetry/MedSurg (Inpatient) bd ja1 16:36 16:31 425 bd ja1 17:45 16:36 [facility] ER HOLD ja1 ss 17:45 16:36 ERHOLD- ja1 ss 19:48 17:45 425 ss eb1
--- NOTE | 2022-06-09 22:56 | ER ---
Nurse's Notes [facility] Name: Juan Antonio Mooney Age: 76 yrs Sex: Male : 1945 Arrival Date: 06/09/2022 Time: 20:37 Bed 17 Private MD: Diagnosis: Pneumonia, unspecified organism;Hypoxemia Presentation: 06/09 20:38 Chief complaint: EMS states: Pt had chemo therapy this morning and we were called out kd3 for SOB. Pt was sating around the 60's. we put him on a non re-breather and we switched him to 3 L nasal canula. He has a history of throat cancer and a heart attack. He had one episode of vomiting and we gave 4 mg of Zofran IM. Coronavirus screen: Vaccine status: Patient reports receiving the 2nd dose of the covid vaccine. Ebola Screen: No symptoms or risks identified at this time. Initial Sepsis Screen: Does the patient meet any 2 criteria? RR > 20 per min. HR > 90 bpm. Yes Does the patient have a suspected source of infection? Yes: Productive cough/pneumonia. Risk Assessment: Do you want to hurt yourself or someone else? Patient reports no desire to harm self or others. Onset of symptoms was June 09, 2022. 20:38 Method Of Arrival: EMS: [facility] kd3 20:38 Acuity: EVY 3 kd3 Triage Assessment: 20:45 General: Appears uncomfortable, Behavior is calm, cooperative. Pain: Denies pain. kd3 Historical: - Allergies: 20:45 Tramadol HCl; kd3 - Immunization history:: Adult Immunizations up to date, Client reports receiving the 2nd dose of the Covid vaccine. - Social history:: Smoking status: unknown. - Family history:: not pertinent. - Hospitalizations: : Patient was recently seen at. Screenin:45 [facility] ED Fall Risk Assessment (Adult) History of falling in the last 3 months, kd3 including since admission No falls in past 3 months (0 pts) Confusion or Disorientation Yes (5 pts) Intoxicated or Sedated No (0 pts) Impaired Gait No (0 pts) Mobility Assist Device Used No (0 pt) Altered Elimination No (0 pt) Score/Fall Risk Level 3 or more points = High Risk Oriented to surroundings, Educated pt \T\ family on fall prevention, incl call for assistance when getting out of bed, Hourly rounding (assess needs \T\ fall precautionary measures) done. Abuse screen: Denies threats or abuse. Denies injuries from another. Nutritional screening: No deficits noted. Tuberculosis screening: No symptoms or risk factors identified. Assessment: 23:42 General: Appears in no apparent distress. Behavior is calm, cooperative. Neuro: Level kd3 of Consciousness is awake, alert, obeys commands, Oriented to person, place, time, situation. Respiratory: Airway is patent Trachea midline Respiratory effort is even, unlabored, Respiratory pattern is regular, symmetrical, Sputum is thick, green. Vital Signs: 20:38 BP 155 / 83; Pulse 103; Resp 23; Temp 100.8(O); Pulse Ox 90% on 3 lpm NC; Weight 70.44 kd3 kg; Height 5 ft. 6 in. (167.64 cm); 22:52 BP 142 / 77; Pulse 109; Resp 24; Pulse Ox 94% on 4 lpm NC; kd3 23:41 BP 121 / 62; Pulse 102; Resp 20; Temp 98.8(O); Pulse Ox 95% ; kd3 23:55 BP 113 / 65; Pulse 98; Resp 19; Pulse Ox 90% on 4 lpm NC; kd3 20:38 Body Mass Index 25.07 (70.44 kg, 167.64 cm) kd3 ED Course: 20:37 Patient arrived in ED. mw2 20:38 Susan Riggs, RN is Primary Nurse. kd3 20:40 Steve Cruz MD is Attending Physician. rn 20:45 Triage completed. kd3 20:45 Arm band placed on right wrist. kd3 20:58 Chest Single View XRAY In Process Unspecified. EDMS 21:10 Inserted saline lock: 20 gauge in right antecubital area, using aseptic technique. kd3 Blood collected. 21:36 COVID-19/FLU A+B Sent. kd3 22:55 Axel Montalvo MD is Hospitalizing Provider. rn 23:42 No provider procedures requiring assistance completed. kd3 23:52 CT Chest For PE Angio In Process Unspecified. EDMS Administered Medications: 22:42 Drug: Acetaminophen Suppository 650 mg Route: NH; kd3 06/10 08:05 Follow up: Response: No adverse reaction db 06/09 22:42 Drug: NS 0.9% 1000 ml Route: IV; Rate: 1000 ml; Site: right antecubital; kd3 22:42 Drug: Rocephin (cefTRIAXone) 1 grams Route: IV; Rate: calculated rate; Site: right kd3 antecubital; 23:32 Follow up: IV Status: Completed infusion; IV Intake: 10ml kd3 22:42 Drug: Zithromax (azithromycin) 500 mg Route: IVPB; Infused Over: 1 hrs; Site: right kd3 antecubital; Intake: 23:32 IV: 10ml; Total: 10ml. kd3 Outcome: 22:56 Decision to Hospitalize by Provider. rn 06/10 21:16 Patient left the ED. as6 Signatures: Dispatcher [employer] EDMS Steve Cruz MD MD rn Gatti, MyKena mw2 Juan Carlos Guerrero RN RN as6 Susan Riggs RN RN kd3 Teagan Bauer RN RN db
[2022-06-09 23:17] LABS: Urine Bacteria None Seen /HPF (<20); Urine Mucus Slight /HPF (None Seen); Urine RBC <5 /HPF (None Seen)
[2022-06-09 23:59] LABS: Anisocytosis 1+; Blood Morphology Comment NOTED (NOT SEEN); Platelet Estimate ADEQ
--- NOTE | 2022-06-10 00:48 | P.HP ---
Certification for Inpatient Patient admitted to: Inpatient With expected LOS: >2 Midnights Patient will require the following post-hospital care: None Practitioner: I am a practitioner with admitting privileges, knowledge of patient current condition, hospital course, and medical plan of care. 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 Patient's reports that he had chemotherapy this morning without any problems and later at home noticed he was acting abnormal. They checked his vitals and noted him to be tachycardic and hypoxic. EMS states he was 60% on room air upon arrival. Patient does NOT require O2 at baseline. He was tachycardic, tachypneic, febrile, and saturating 90% on 3L upon arrival to ED. Labs are significant for WBC 13.8 with left shift, potassium 3, chloride 97, CO2 35, BUN 23. COVID/flu negative. Chest CT suggested an infectious process specifically within the left upper lobe. He was given tylenol, 1L fluid, azithromycin, and rocephin in the emergency department. Patient is admitted for further management. Allergies lisinopril Allergy (Verified 06/10/22 01:57) Itching oxycodone Allergy (Verified 06/10/22 01:57) Itching tramadol Allergy (Verified 06/10/22 01:54) Itching Home medications list reviewed: Yes Home Medications: Acetaminophen [Acetaminophen Extra Strength] 1,000 mg PO BID 06/10/22 - Past Medical/Surgical History Diabetic: No -: Throat/Neck Cancer on chemotherapy -: CAD -: Quadruple Bypass -: Lymphadenectomy Psychosocial/ Personal History: Patient is . - Family History Father -: Heart disease - Social History Smoking Status: Never smoker Alcohol use: No CD- Drugs: No Caffeine use: No Place of Residence: Home Review of Systems Respiratory: Sputum Physical Examination - Physical Exam General: Alert, In no apparent distress HEENT: Atraumatic, PERRLA, Other (Pale, dry mucous membranes), EOMI Neck: Other (lesion right lateral neck, firm, oozing) Respiratory: Crackles/rales Cardiovascular: Regular rate/rhythm, Normal S1 S2 Gastrointestinal: Normal bowel sounds, No tenderness Musculoskeletal: No tenderness Integumentary: No rashes Neurological: Normal speech, Normal strength at 5/5 x4 extr, Sensation intact - Studies Laboratory Data (last 24 hrs) 06/09/22 21:03: PT 13.6 H, INR 1.24, APTT 25.0 06/09/22 21:03: Sodium 141, Potassium 3.0 L, BUN 23 H, Creatinine 1.22, Glucose 145 H, Total Bilirubin 0.5, AST 30, ALT 37, Alkaline Phosphatase 74 06/09/22 21:03: WBC 13.80 H, Hgb 9.9 L, Hct 29.6 L, Plt Count 172 Assessment and Plan - Problems (Diagnosis) (1) Pneumonia Current Visit: Yes Status: Acute Qualifiers: Pneumonia type: due to unspecified organism Laterality: left Lung location: upper lobe of lung Qualified Code(s): J18.9 - Pneumonia, unspecified organism (2) CAD (coronary artery disease) Current Visit: Yes Status: Chronic Qualifiers: Coronary Disease-Associated Artery/Lesion type: bypass graft [place] vs. transplanted heart: [place] heart Associated angina: without angina Qualified Code(s): I25.810 - Atherosclerosis of coronary artery bypass graft(s) without angina pectoris (3) Sepsis Current Visit: Yes Status: Acute Qualifiers: Sepsis type: sepsis due to unspecified organism Sepsis acute organ dysfunction status: without acute organ dysfunction Qualified Code(s): A41.9 - Sepsis, unspecified organism (4) Throat cancer Current Visit: Yes Status: Chronic - Plan Patient is admitted for further management of left upper lobe pneumonia and hypoxia. Continue azithromycin and rocephin. Initially meeting sepsis criteria. Blood cultures obtained. Supplemental O2- titrate and wean as tolerated. Currently on 3L. Supportive measures with antitussives, breathing treatments, guafenisen. Obtain sputum culture. Patient has thick green sputum per RN. NPO for now as reports history of dysphagia and he is somewhat altered. Bedside swallow when appropriate. Pulmonology consult. Incentive spirometry ordered. Monitor and replete electrolytes per protocol. Reconcile and continue home medications. Lovenox for VTE prophylaxis. DNR. 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 He has received chemotherapy, radiation, lymphadenectomy. 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 Discharge Plan: Home Plan to discharge in: Greater than 2 days - Advance Directives Does patient have a Living Will: No Does patient have a Durable POA for Healthcare: No - Code Status/Comfort Care Code Status Assessed: Yes Code Status: Full Code Physician Review: Patient Assessed, Agree with Above Assessment and Plan Critical Care: No Time Spent Managing Pts Care (In Minutes): 50
[2022-06-10] MEDS ORDERED: IPRATROPIUM BROM 0.5MG/2.5ML NEB PRN (01:54)
[2022-06-10] MEDS ORDERED: GUAIFENESIN 600 MG SA TAB PO PRN (01:54)
[2022-06-10] MEDS ORDERED: ALBUTEROL 2.5 MG/3 ML NEB SOL NEB PRN ×2 (01:54→14:00)
[2022-06-10] MEDS ORDERED: BENZONATATE 100 MG CAP PO PRN (01:54)
[2022-06-10] MEDS ORDERED: ACETAMINOPHEN 500 MG TAB PO PRN (01:54)
[2022-06-10] MEDS ORDERED: NS KCL 20MEQ 20 MEQ/1,000 ML BAG IV SCH (02:00)
[2022-06-10] MEDS ORDERED: ACETAMINOPHEN 500 MG TAB PO ONE (02:46)
[2022-06-10] MEDS ORDERED: ACETAMINOPHEN 650MG/RECT SUPP PR ONE ×3 (02:52→21:39)
[2022-06-10 03:05] VITALS: BMI 25.0
[2022-06-10] MEDS ORDERED: NS KCL 20MEQ 1,000 ML IV ONE (03:26)
[2022-06-10 03:44] LABS: Absolute Lymphocytes (CBC) 0.3 K/uL (0.7-4.9); Hematocrit 24.6 % (39.6-49.0); Lymphocytes % 1.9 % (15.3-44.8); MPV 9.3 fL (7.6-11.3); RBC Red Blood Cell Count 2.49 M/uL (4.33-5.43)
[2022-06-10 04:04] LABS: Phosphorus 2.5 mg/dL (2.5-4.9); Potassium 3.2 mmol/L (3.5-5.1)
[2022-06-10] MEDS ORDERED: ACETAMINOPHEN 325 MG TABLET PO ONE (08:13)
[2022-06-10] MEDS ORDERED: NA CHLORIDE 0.9% 100 ML IV ONE (08:29)
[2022-06-10] MEDS ORDERED: ACETAMINOPHEN 325 MG TABLET ONE (08:29)
[2022-06-10] MEDS ORDERED: CEFTRIAXONE 1000 MG/VIAL ONE (08:29)
[2022-06-10] MEDS ORDERED: ENOXAPARIN 40 MG/0.4 ML SQ ONE (08:29)
[2022-06-10] MEDS: CEFTRIAXONE 1,000 MG in NA CHLORIDE 0.9% 50 ML IVPB SCH (08:48)
[2022-06-10] MEDS: ENOXAPARIN 40 MG/0.4 ML SQ SCH (08:48)
[2022-06-10] MEDS ORDERED: AZITHROMYCIN IV 500 MG in NA CHLORIDE 0.9% 250 ML IVPB SCH (09:00)
[2022-06-10] MEDS ORDERED: AZITHROMYCIN 500 MG INJ IVPB ONE (09:13)
[2022-06-10] MEDS ORDERED: NA CHLORIDE 0.9% 250 ML ONE (09:13)
[2022-06-10] MEDS ORDERED: POTASSIUM 25 MEQ EFFERV TAB PO ONE (10:00)
--- NOTE | 2022-06-10 10:19 | RAD REPORT ---
EXAM DESCRIPTION: CT - Chest For Pe Angio - 06/10/2022 6:43 am CLINICAL HISTORY: The patient is 76 years old and is Male; dyspnea, hypoxia, cancer TECHNIQUE: Axial computed tomographic angiography images of the chest with intravenous contrast. S agittal and coronal reformatted images were created and reviewed. This CT exam was performed using one or more of the following dose reduction techniques: automated exposure control, adjustment of t he mA and/or kV according to patient size, and/or use of iterative reconstruction technique. MIP reconstructed images were created and reviewed. COMPARISON: No relevant prior studies available. FINDINGS: ARTIFACTS: The exam is suboptimal secondary to motion artifact. PULMONARY ARTERIES: The main pulmonary arteries opacify normally and are without filling defect. AORTA: No acute findings. No thoracic aortic aneurysm. LUNGS: Groundglass opacities are noted specifically within the left lung with minimal dependent atelectasis in the lung bases. Multiple calcified granuloma are present within the lungs. PLEURAL SPACE: Unremarkable. No significant effusion. No pneumothorax. HEART: Unremarkable. No cardiomegaly. No significant pericardial effusion. No evidence of RV dysfunction. BONES/JOINTS: Multilevel degenerative change of the spine is present. There is no acute fractu re. Evidence of median sternotomy is present. No dislocation. SOFT TISSUES: Unremarkable. LYMPH NODES: Multiple calcified mediastinal hilar lymph nodes are present. UPPER ABDOMEN: Elevation of the right hemidiaphragm is noted. IMPRESSION: 1. The main pulmonary arteries opacify normally and are without filling defect. Rhodes bhanu, the remainder of the pulmonary vessels are inadequately evaluated secondary to motion and contra st timing. 2. Findings suggest an infectious process specifically within the left upper lobe. Electronically signed by: Ree Freedman MD 06/10/2022 12:16 AM SAILBO[employer] CAPTAIN Due to temporary technical issues with the PACS/Fluency reporting system, reports are being signed by the in house radiologists without review as a courtesy to insure prompt reporting. The interpreting radiologist is fully responsible for the content of the report.
[2022-06-10] MEDS ORDERED: ALBUTEROL 2.5 MG/3 ML NEB SOL ONE (10:57)
[2022-06-10] MEDS ORDERED: IPRATROPIUM BROM 0.5MG/2.5ML ONE (10:57)
--- NOTE | 2022-06-10 12:07 | P.CNS ---
Date of Consult: 06/10/22 Reason for Consult: Pneumonia Chief Complaint: Pneumonia History of Present Illness: Patient is 76 years of age with a history of coronary artery disease and a static ENT cancer he just had chemotherapy according to his had altered mental status became hypoxic was admitted to the hospital with a diagnosis of pneumonia no prior history of cardiopulmonary problem his ENT cancer is under his resectable is currently comfortable very hard of hearing History of Present Illness: P Allergies lisinopril Allergy (Verified 06/10/22 01:57) Itching oxycodone Allergy (Verified 06/10/22 01:57) Itching tramadol Allergy (Verified 06/10/22 01:54) Itching Home Medications: Acetaminophen [Acetaminophen Extra Strength] 1,000 mg PO BID 06/10/22 Aspirin 81 mg PO DAILY 06/10/22 Atorvastatin Calcium 40 tab PO BEDTIME 06/10/22 Baclofen 10 mg PO TID PRN 06/10/22 Clopidogrel Bisulfate [Plavix*] 75 mg PO DAILY 06/10/22 Docusate [Colace Cap*] 100 mg PO BID PRN 06/10/22 Ensure Enlive 1 can PO 5XD 06/10/22 Ferrous Sulfate 1 tab PO DAILY 06/10/22 Lactulose 1 packet PO TID PRN 06/10/22 Levothyroxine Sodium [Levothyroxine] 25 mcg PO DAILY 06/10/22 Loratadine [Claritin*] 10 mg PO DAILY 06/10/22 Magic Mouthwash [Magic Mouthwash*] 1 dose PO Q6HR PRN 06/10/22 Metoprolol Tartrate 25 mg PO BID 06/10/22 Mirtazapine 30 mg PO BEDTIME 06/10/22 Nitroglycerin 0.4 mg SL Q5MX3, Q15MX1, Q30M PRN 06/10/22 Polyethyl Gly 3350 [Glycolax*] 1 pkt PO DAILY PRN 06/10/22 Tamsulosin [Flomax*] 1 cap PO BID 06/10/22 buPROPion HCL [Bupropion Xl] 300 mg PO DAILY 06/10/22 hydrOXYzine HCL [Atarax*] 50 mg PO BEDTIME PRN 06/10/22 - Past Medical/Surgical History Diabetic: No -: Throat/Neck Cancer on chemotherapy -: CAD -: Quadruple Bypass -: Lymphadenectomy Psychosocial/ Personal History: Patient is . - Family History Father Medical History: Heart disease - Social History Alcohol use: No CD- Drugs: No Caffeine use: No Place of Residence: Home Review of Systems General: Weakness Respiratory: Shortness of Breath Physical Examination Temp Pulse Resp BP Pulse Ox 99.6 F 99 H 20 108/70 92 06/10/22 10:00 06/10/22 10:00 06/10/22 10:00 06/10/22 10:00 06/10/22 10:00 General: Alert, Oriented x3 Neck: Supple Respiratory: Clear to auscultation bilaterally Cardiovascular: No edema, Regular rate/rhythm Laboratory Data (last 24 hrs) 06/09/22 21:03: PT 13.6 H, INR 1.24, APTT 25.0 06/09/22 21:03: Sodium 141, Potassium 3.0 L, BUN 23 H, Creatinine 1.22, Glucose 145 H, Total Bilirubin 0.5, AST 30, ALT 37, Alkaline Phosphatase 74 06/09/22 21:03: WBC 13.80 H, Hgb 9.9 L, Hct 29.6 L, Plt Count 172 - Problems (1) Pneumonia Current Visit: Yes Status: Acute Plan: Patient is 76 years of age admitted with altered mental status hypoxemia he does have a left upper lobe infiltrate gets chemotherapy for ENT cancer which is spread local patient's white count is elevated he is hypoxic no evidence of pulmonary emboli. Patient does not have risk factors for Pseudomonas or MRSA continue with Rocephin changed to p.o. Zithromax patient is very hard of hearing present at bedside Qualifiers: Pneumonia type: due to unspecified organism Laterality: left Lung location: upper lobe of lung Qualified Code(s): J18.9 - Pneumonia, unspecified organism
--- NOTE | 2022-06-10 12:25 | EKG ---
Test Date: 2022-06-09 Test Time: 21:08:20 Salvage Worker: ED MEASUREMENT RESULTS: Intervals: Rate: 100 VT: 170 QRSD: 122 QT: 420 QTc: 541 [place]: P: 38 VT: 170 QRS: -70 T: 62 INTERPRETIVE STATEMENTS: Normal sinus rhythm Right bundle branch block Left anterior fascicular block Bifascicular block Abnormal ECG Compared to ECG 08/24/2021 12:51:04 Left anterior fascicular block now present Bifascicular block now present Left-axis deviation no longer present Left ventricular hypertrophy no longer present Electronically Signed On 06-10-22 12:24:36 [employer] ADMINISTRATOR by Jon [place]
[2022-06-10] MEDS ORDERED: POTASSIUM 25 MEQ EFFERV TAB ONE (13:06)
[2022-06-10 14:30] LABS: Potassium 3.7 mmol/L (3.5-5.1)
[2022-06-10] MEDS ORDERED: LORazepam 2 MG/ML VIAL IV ONE (20:46)
[2022-06-10] MEDS ORDERED: METOPROLOL TARTRATE 5 MG/5 ML INJ IV STA (20:46)
[2022-06-10] MEDS ORDERED: LORazepam 2 MG/ML VIAL IV PRN (21:23)
[2022-06-10] MEDS ORDERED: BACLOFEN 10 MG TAB PO PRN (21:24)
[2022-06-10] MEDS ORDERED: DOCUSATE NA 100 MG CAP PO PRN (21:24)
[2022-06-10] MEDS ORDERED: hydrOXYzine HCL 25 MG TAB PO PRN (21:24)
[2022-06-11] MEDS ORDERED: HALOPERIDOL LACT 5 MG/ML INJ IV PRN (00:09)
[2022-06-11] MEDS ORDERED: ACETAMINOPHEN 650MG/RECT SUPP PR PRN (00:10)
[2022-06-11 04:18] LABS: Absolute Lymphocytes (CBC) 0.7 K/uL (0.7-4.9); Hematocrit 25.8 % (39.6-49.0); Lymphocytes % 6.1 % (15.3-44.8); MCV 100.1 fL (80-100); MPV 9.7 fL (7.6-11.3); RBC Red Blood Cell Count 2.58 M/uL (4.33-5.43)
[2022-06-11 04:34] LABS: Magnesium 2.3 mg/dL (1.6-2.4); Phosphorus 4.5 mg/dL (2.5-4.9); Potassium 4.7 mmol/L (3.5-5.1)
[2022-06-11] MEDS: ENSURE ENLIVE 237 ML CAN PO SCH ×5 (08:00→20:40)
[2022-06-11] MEDS: ASPIRIN 81 MG CHEWABLE TABLET PO SCH (08:05)
[2022-06-11] MEDS: METOPROLOL TAR 25 MG TAB PO SCH ×2 (08:05→20:40)
[2022-06-11] MEDS: FERROUS SULFATE 325 MG TAB PO SCH (08:05)
[2022-06-11] MEDS: TAMSULOSIN 0.4 MG SR CAP PO SCH ×2 (08:05→20:47)
[2022-06-11] MEDS: ALBUTEROL 2.5 MG/3 ML NEB SOL IH SCH ×3 (08:21→19:30)
--- NOTE | 2022-06-11 08:45 | RAD REPORT ---
EXAM DESCRIPTION: Mak Single View06/11/2022 8:33 am CLINICAL HISTORY: Chest pain COMPARISON: June 09, 2022 FINDINGS: Marked worsening in extensive bilateral alveolar lung opacities. Heart is enlarged. IMPRESSION: Marked worsening in extensive bilateral pulmonary opacities probably pulmonary edema.
--- NOTE | 2022-06-11 08:56 | P.PN ---
Subjective Date of Service: 06/11/22 Had a long discussion with family. Patient has been started on antibiotics and IV steroids. Patient was on BiPAP but currently on non-rebreather. Patient actually got out of bed and ambulated. Later on in the day the family also let him sit in the chair. Patient appears to be doing a little bit better. Will continue to monitor him very closely. If patient does start declining the family wants to proceed with hospice. Patient is on broad-spectrum antibiotics. Extensive opacities noted in the lungs. Possible chemical pneumonitis. Close monitoring and if he continues to improve then will start some therapy. Otherwise if he declines then we will proceed with hospice care. Review of Systems 10-point ROS is otherwise unremarkable Physical Examination - Vital Signs Temperature: 99.7 F Blood Pressure: 107/72 Pulse: 105 Respirations: 20 Pulse Ox (%): 82 - Physical Exam General: Alert, In no apparent distress, Confused Neck: Other (erythema; inflamed; purulent drainage) Respiratory: Diminished, Expiratory wheezes Cardiovascular: Regular rate/rhythm, Normal S1 S2, No murmurs Gastrointestinal: Normal bowel sounds, Soft and benign, Non-distended, No tenderness Musculoskeletal: No clubbing, No swelling, No tenderness Integumentary: No rashes Neurological: Normal speech, Normal tone, Normal affect Lymphatics: No axilla or inguinal lymphadenopathy - Studies Microbiology Data (last 24 hrs): 06/09/22 22:49 Catheterized Urine [place] Count - Final No growth. 06/09/22 22:49 Catheterized Urine - Final No growth. 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 transplanted heart: [place] heart Associated angina: without angina Qualified Code(s): I25.810 - Atherosclerosis of coronary artery bypass graft(s) without angina pectoris (4) Aspiration pneumonia Current Visit: Yes Status: Acute (5) Sepsis Current Visit: Yes Status: Acute - Plan 1. Continue with IV antibiotics 2. Awaiting culture 3. Repeat chest x-ray 4. Continue monitoring closely; if improves then continue with therapy; otherwise may do inpatient hospice 5. Wean down O2 6. Continue with nebs as needed 7. Continue with IV steroids 8. Repeat labs 9. GI and DVT prophylaxis Discharge Plan: Home Plan to discharge in: Greater than 2 days - Advance Directives Does patient have a Living Will: No Does patient have a Durable POA for Healthcare: No - Code Status/Comfort Care Code Status: Full Code Physician Review: Patient Assessed, Agree with Above Assessment and Plan Critical Care: No Time Spent Managing PTS Care (In Minutes): 45
[2022-06-11] MEDS ORDERED: AZITHROMYCIN 250 MG TAB PO SCH (09:00)
[2022-06-11] MEDS ORDERED: ACETAMINOPHEN 500 MG TAB PO SCH (09:00)
[2022-06-11] MEDS ORDERED: ALBUTEROL 2.5 MG/3 ML NEB SOL NEB PRN ×2 (09:00→14:00)
[2022-06-11] MEDS ORDERED: D5 0.45 NS 1,000 ML IV SCH (09:00)
[2022-06-11] MEDS ORDERED: Levofloxacin500mg IV 500 MG/100 ML BAG IV SCH (09:00)
[2022-06-11] MEDS ORDERED: DIGOXIN 0.25 MG/ML AMP IV ONE (09:18)
[2022-06-11] MEDS: CEFTRIAXONE 1,000 MG in NA CHLORIDE 0.9% 50 ML IVPB SCH (09:38)
[2022-06-11] MEDS: ENOXAPARIN 40 MG/0.4 ML SQ SCH (09:39)
[2022-06-11] MEDS ORDERED: Levofloxacin 250mg IV 250 MG/50 ML BAG IV ONE (14:00)
[2022-06-11] MEDS ORDERED: Meropenem 1,000 MG in NA CHLORIDE 0.9% 100 ML IV SCH (14:00)
[2022-06-11] MEDS ORDERED: VANCOMYCIN 1.75 GM in NA CHLORIDE 0.9% 500 ML IVPB ONE (14:00)
[2022-06-11] MEDS: IPRATROPIUM BROM 0.5MG/2.5ML NEB SCH ×2 (14:11→19:30)
[2022-06-11] MEDS: METHYLPREDNISOLONE 125 MG INJ IV SCH ×2 (15:12→20:40)
[2022-06-11] MEDS: Meropenem 1,000 MG in NA CHLORIDE 0.9% 100 ML IV SCH (17:44)
[2022-06-11] MEDS: DIGOXIN 0.25 MG/ML AMP IV SCH (20:39)
[2022-06-11] MEDS: ATORVASTATIN 40 MG TAB PO SCH (20:40)
[2022-06-12] MEDS: IPRATROPIUM BROM 0.5MG/2.5ML NEB SCH ×4 (01:40→20:00)
[2022-06-12] MEDS: ALBUTEROL 2.5 MG/3 ML NEB SOL IH SCH ×4 (01:40→20:00)
[2022-06-12] MEDS: DIGOXIN 0.25 MG/ML AMP IV SCH (03:34)
[2022-06-12] MEDS: Meropenem 1,000 MG in NA CHLORIDE 0.9% 100 ML IV SCH ×2 (03:34→16:18)
[2022-06-12 03:55] LABS: Absolute Lymphocytes (CBC) 0.4 K/uL (0.7-4.9); Hematocrit 25.2 % (39.6-49.0); Lymphocytes % 2.8 % (15.3-44.8); MCV 100.1 fL (80-100); MPV 9.7 fL (7.6-11.3); RBC Red Blood Cell Count 2.52 M/uL (4.33-5.43)
[2022-06-12 04:08] LABS: Potassium 4.1 mmol/L (3.5-5.1)
--- NOTE | 2022-06-12 08:34 | RAD REPORT ---
EXAM DESCRIPTION: RAD - Chest Single View - 06/12/2022 5:34 am CLINICAL HISTORY: penumonia Chest pain. COMPARISON: Chest Single View dated 06/11/2022; Chest Single View dated 06/09/2022; Chest Single View dated 08/24/2021 FINDINGS: Portable technique limits examination quality. Extensive bilateral pulmonary opacities are present, unchanged. The heart is normal in size. Sternoto my wires present.Left-sided port catheter its tip in the SVC. IMPRESSION: Stable chest since 06/11/2022.
[2022-06-12] MEDS: FERROUS SULFATE 325 MG TAB PO SCH (10:15)
[2022-06-12] MEDS: ASPIRIN 81 MG CHEWABLE TABLET PO SCH (10:17)
[2022-06-12] MEDS: TAMSULOSIN 0.4 MG SR CAP PO SCH ×2 (10:17→20:30)
[2022-06-12] MEDS: METOPROLOL TAR 25 MG TAB PO SCH ×2 (10:17→20:32)
[2022-06-12] MEDS: ENOXAPARIN 40 MG/0.4 ML SQ SCH (10:18)
[2022-06-12] MEDS: METHYLPREDNISOLONE 125 MG INJ IV SCH ×2 (10:18→20:32)
[2022-06-12] MEDS: ENSURE ENLIVE 237 ML CAN PO SCH ×5 (10:20→20:32)
[2022-06-12] MEDS: VANCOMYCIN 1 GM in NA CHLORIDE 0.9% 250 ML IVPB SCH (13:47)
--- NOTE | 2022-06-12 13:59 | P.PN ---
Subjective Date of Service: 06/12/22 Chief Complaint: Resp Failure ARDS Subjective: Improving (Doignmuch better today Tolerating BIPAP more comfortable) Review of Systems General: Weakness Respiratory: Shortness of Breath Physical Examination - Vital Signs Temperature: 97.6 F Blood Pressure: 124/60 Pulse: 98 Respirations: 18 Pulse Ox (%): 93 - Physical Exam General: Alert Respiratory: Diminished, Crackles/rales Cardiovascular: No edema, Regular rate/rhythm, Normal S1 S2 - Studies Microbiology Data (last 24 hrs): 06/09/22 22:49 Catheterized Urine [place] Count - Final No growth. 06/09/22 22:49 Catheterized Urine - Final No growth. Medications List Reviewed: Yes Assessment And Plan - Current Problems (Diagnosis) (1) Respiratory failure Current Visit: Yes Status: Acute Plan: Age 76 AW ARDS pos sec to chemo/ infection. On BIPAP. Improving CXRY no cahnge CW Steroids and AB BC neg/ WBC mildelevation. CW steroidsMild hyperantremia Qualifiers: Chronicity: acute Physician Review: Patient Assessed, Agree with Above Assessment and Plan
[2022-06-12] MEDS: ATORVASTATIN 40 MG TAB PO SCH (20:31)
[2022-06-13] MEDS: IPRATROPIUM BROM 0.5MG/2.5ML NEB SCH ×4 (02:00→20:45)
[2022-06-13] MEDS: ALBUTEROL 2.5 MG/3 ML NEB SOL IH SCH ×4 (02:00→20:45)
[2022-06-13] MEDS: Meropenem 1,000 MG in NA CHLORIDE 0.9% 100 ML IV SCH ×2 (04:05→15:45)
--- NOTE | 2022-06-13 07:27 | ECHO ---
HEIGHT: 5 ft 6 in WEIGHT: 155 lb 4.698 oz DATE OF STUDY: 06/12/[address]: Axel Montalvo MD 2-DIMENSIONAL: YES M.MODE: YES DOPPLER: YES COLOR FLOW: YES TDS: NO PORTABLE: YES DEFINITY: NO BUBBLE STUDY: NO DIAGNOSIS: CONGESTIVE HEART FAILURE, ATRIAL FIBRILLATION CARDIAC HISTORY: CATHERIZATION:YES SURGERY: YES PROSTHETIC VALVE: NO PACEMAKER: NO MEASUREMENTS (cm) DIASTOLIC (NORMALS) SYSTOLIC (NORMALS) IVSd 1.0 (0.6-1.2) LA Diam 4.1 (1.9-4.0) LVEF 50% LVIDd 5.1 (3.5-5.7) LVIDs 4.0 (2.0-3.5) %FS 21% LVPWd 1.1 (0.6-1.2) Ao Diam 3.2 (2.0-3.7) 2 DIMENSIONAL ASSESSMENT: RIGHT ATRIUM: NORMAL LEFT ATRIUM: ENLARGED RIGHT VENTRICLE: NORMAL LEFT VENTRICLE: DEPRESSED EF TRICUSPID VALVE: MILD TR MITRAL VALVE: MILD MR PULMONIC VALVE: NORMAL AORTIC VALVE: MILD AI PERICARDIAL EFFUSION: NONE AORTIC ROOT: NORMAL LEFT VENTRICULAR WALL MOTION: MILD DANICA-SEPTAL HYPOKINESIS. DOPPLER/COLOR FLOW: SEE BELOW. COMMENTS: 1. LOW NORMAL LEFT VENTRICULAR EJECTION FRACTION 50-55%. 2. MILD ANTEROSEPTAL HYPOKINESIS. 3. LEFT ATRIAL ENLARGEMENT. 4. MILD AORTIC, TRICUSPID AND MITRAL REGURGITATION. TECHNOLOGIST: Tuyet SHAIKH
[2022-06-13] MEDS: METHYLPREDNISOLONE 125 MG INJ IV SCH ×2 (08:53→20:30)
[2022-06-13] MEDS: TAMSULOSIN 0.4 MG SR CAP PO SCH ×2 (08:53→20:31)
[2022-06-13] MEDS: ASPIRIN 81 MG CHEWABLE TABLET PO SCH (08:53)
[2022-06-13] MEDS: FERROUS SULFATE 325 MG TAB PO SCH (08:53)
[2022-06-13] MEDS: METOPROLOL TAR 25 MG TAB PO SCH ×2 (08:54→20:31)
[2022-06-13] MEDS: ENOXAPARIN 40 MG/0.4 ML SQ SCH (08:54)
[2022-06-13] MEDS: ENSURE ENLIVE 237 ML CAN PO SCH ×5 (08:55→21:00)
[2022-06-13 09:36] LABS: Hematocrit 26.8 % (39.6-49.0); MCV 99.9 fL (80-100); MPV 9.9 fL (7.6-11.3); RBC Red Blood Cell Count 2.68 M/uL (4.33-5.43)
[2022-06-13 09:45] LABS: Potassium 3.7 mmol/L (3.5-5.1)
--- NOTE | 2022-06-13 11:12 | RAD REPORT ---
EXAM DESCRIPTION: RAD - Chest Single View - 06/13/2022 10:19 am CLINICAL HISTORY: pneumonia COMPARISON: Portable 06/12/2022 TECHNIQUE: AP portable chest image was obtained 06/13/2022 10:19 am . FINDINGS: Lung volumes are low. Interstitial and alveolar opacities are scattered throughout both dwight ng rolle showing significant improvement from comparison imaging. Numerous granulomatous type calcif ications are seen throughout both lung rolle. Heart size and vasculature are similar to prior imaging. No measurable pleural effusion and no pneum othorax. IMPRESSION: Partial clearing of the bilateral lung parenchymal opacification since prior imaging.
[2022-06-13] MEDS ORDERED: Levofloxacin 750mg IV 750 MG/150 ML BAG IV SCH ×2 (14:00→16:00)
[2022-06-13] MEDS: VANCOMYCIN 1 GM in NA CHLORIDE 0.9% 250 ML IVPB SCH (14:34)
[2022-06-13] MEDS: ATORVASTATIN 40 MG TAB PO SCH (20:30)
[2022-06-14] MEDS: IPRATROPIUM BROM 0.5MG/2.5ML NEB SCH ×4 (01:15→20:35)
[2022-06-14] MEDS: ALBUTEROL 2.5 MG/3 ML NEB SOL IH SCH ×4 (01:15→20:35)
[2022-06-14] MEDS: Meropenem 1,000 MG in NA CHLORIDE 0.9% 100 ML IV SCH ×2 (04:02→15:58)
[2022-06-14] MEDS: ENSURE ENLIVE 237 ML CAN PO SCH ×5 (08:00→21:00)
[2022-06-14] MEDS: ASPIRIN 81 MG CHEWABLE TABLET PO SCH (08:51)
[2022-06-14] MEDS: METOPROLOL TAR 25 MG TAB PO SCH ×2 (08:51→20:59)
[2022-06-14] MEDS: ENOXAPARIN 40 MG/0.4 ML SQ SCH (08:51)
[2022-06-14] MEDS: METHYLPREDNISOLONE 125 MG INJ IV SCH ×2 (08:51→21:00)
[2022-06-14] MEDS: TAMSULOSIN 0.4 MG SR CAP PO SCH ×2 (08:51→21:00)
[2022-06-14] MEDS: FERROUS SULFATE 325 MG TAB PO SCH (08:51)
--- NOTE | 2022-06-14 09:19 | RAD REPORT ---
EXAM DESCRIPTION: Mak Single View06/14/2022 6:43 am CLINICAL HISTORY: Pneumonia COMPARISON: June 13, 2022 FINDINGS: Mild bilateral pulmonary opacities have partially resolved Heart is mildly enlarged. Postsurgical changes involve the chest. Central venous catheter with its ti p in the right atrium IMPRESSION: Partial resolution in mild bilateral pulmonary opacities
--- NOTE | 2022-06-14 12:57 | P.PN ---
Date of Service: 06/12/22 Subjective Starting to improve. Oxygenation is much better. Contacted patient's oncologist. Waiting for callback. Weaning off of Airvo. 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 transplanted heart: [place] heart Associated angina: without angina Qualified Code(s): I25.810 - Atherosclerosis of coronary artery bypass graft(s) without angina pectoris (4) Aspiration pneumonia Current Visit: Yes Status: Acute (5) Sepsis Current Visit: Yes Status: Acute - Plan Continue with plan of care as mentioned below: 1. Continue with IV antibiotics 2. Oxygenation requirements are improving 3. Repeat chest x-ray 4. Spoke with oncology office and waiting for callback 5. Wean down O2 6. Continue with nebs as needed 7. Continue with IV steroids 8. Repeat labs 9. GI and DVT prophylaxis
--- NOTE | 2022-06-14 13:00 | P.PN ---
Date of Service: 06/13/22 Subjective Spoke with patient's oncologist. She is not recommending any further chemotherapy as an outpatient. She spoke with the family as well and the family will want to proceed with hospice care as they do not want any further chemotherapy. We will go ahead and wean off of air Vo. Arrange for home ox ygen. Anticipate discharge over the next 24 to 48 hours. 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 transplanted heart: [place] heart Associated angina: without angina Qualified Code(s): I25.810 - Atherosclerosis of coronary artery bypass graft(s) without angina pectoris (4) Aspiration pneumonia Current Visit: Yes Status: Acute (5) Sepsis Current Visit: Yes Status: Acute - Plan Continue with plan of care as mentioned below: 1. Continue with IV antibiotics 2. Oxygenation requirements are improving 3. Repeat chest x-ray 4. Spoke with oncology; no further intervention; 5. Wean down O2 6. Continue with nebs as needed 7. Wean off IV steroids 8. Repeat labs 9. GI and DVT prophylaxis
--- NOTE | 2022-06-14 13:01 | P.PN ---
Date of Service: 06/14/22 Subjective Patient is clinically doing well. Continues to improve. Family is going to want hospice care at discharge. We will arrange for home oxygen as well. Continue with antibiotics. Continue with steroids. Continue weaning off of O2. 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 transplanted heart: [place] heart Associated angina: without angina Qualified Code(s): I25.810 - Atherosclerosis of coronary artery bypass graft(s) without angina pectoris (4) Aspiration pneumonia Current Visit: Yes Status: Acute (5) Sepsis Current Visit: Yes Status: Acute - Plan Continue with plan of care as mentioned below: 1. Continue with IV antibiotics 2. Oxygenation requirements are improving 3. Repeat chest x-ray 4. Spoke with oncology; no further intervention; 5. Wean down O2 6. Continue with nebs as needed 7. Wean off IV steroids 8. Repeat labs 9. GI and DVT prophylaxis
[2022-06-14] MEDS: VANCOMYCIN 1 GM in NA CHLORIDE 0.9% 250 ML IVPB SCH (14:07)
[2022-06-14] MEDS: ATORVASTATIN 40 MG TAB PO SCH (20:59)
[2022-06-14] MEDS: predniSONE 20 MG TAB PO SCH (21:00)
[2022-06-15] MEDS: IPRATROPIUM BROM 0.5MG/2.5ML NEB SCH ×2 (02:35→08:00)
[2022-06-15] MEDS: ALBUTEROL 2.5 MG/3 ML NEB SOL IH SCH ×4 (02:35→20:00)
[2022-06-15] MEDS: Meropenem 1,000 MG in NA CHLORIDE 0.9% 100 ML IV SCH (04:51)
[2022-06-15 06:12] LABS: Absolute Lymphocytes (CBC) 0.3 K/uL (0.7-4.9); Lymphocytes % 2.8 % (15.3-44.8); MPV 9.4 fL (7.6-11.3); RBC Red Blood Cell Count 2.32 M/uL (4.33-5.43)
[2022-06-15 06:28] LABS: Bilirubin Total 0.5 mg/dL (0.2-1.0); Magnesium 2.1 mg/dL (1.6-2.4); Protein, Total 5.2 g/dL (6.4-8.2)
[2022-06-15] MEDS: ENSURE ENLIVE 237 ML CAN PO SCH ×5 (08:00→21:17)
[2022-06-15 08:17] LABS: Blood Morphology Comment NOT SEEN (NOT SEEN); Platelet Estimate ADEQ
[2022-06-15] MEDS: METHYLPREDNISOLONE 125 MG INJ IV SCH (09:31)
[2022-06-15] MEDS: ASPIRIN 81 MG CHEWABLE TABLET PO SCH (09:31)
[2022-06-15] MEDS: ENOXAPARIN 40 MG/0.4 ML SQ SCH (09:31)
[2022-06-15] MEDS: predniSONE 20 MG TAB PO SCH ×2 (09:32→21:11)
[2022-06-15] MEDS: FERROUS SULFATE 325 MG TAB PO SCH (09:32)
[2022-06-15] MEDS: TAMSULOSIN 0.4 MG SR CAP PO SCH ×2 (09:32→21:00)
[2022-06-15] MEDS: METOPROLOL TAR 25 MG TAB PO SCH ×2 (09:32→21:12)
--- NOTE | 2022-06-15 11:30 | P.PN ---
Subjective Date of Service: 06/15/22 Chief Complaint: Resp Failure ARDS Subjective: Improving (Patient is improving doing much better on flow oxygen eating and drinking) Review of Systems General: Weakness Respiratory: Shortness of Breath Physical Examination - Vital Signs Temperature: 97.7 F Blood Pressure: 152/72 Pulse: 63 Respirations: 16 Pulse Ox (%): 94 - Physical Exam General: Alert, Oriented x3 Respiratory: Clear to auscultation bilaterally, Diminished Cardiovascular: No edema, Regular rate/rhythm - Studies Microbiology Data (last 24 hrs): 06/09/22 21:28 Blood - Blood Aerobic Blood Culture - Final No growth in 5 days. 06/09/22 21:28 Blood - Blood Anaerobic Blood Culture - Final 06/09/22 21:03 Blood - Blood Aerobic Blood Culture - Final No growth in 5 days. 06/09/22 21:03 Blood - Blood Anaerobic Blood Culture - Final No growth in 5 days. Medications List Reviewed: Yes Assessment And Plan - Current Problems (Diagnosis) (1) Respiratory failure Current Visit: Yes Status: Acute Plan: Patient admitted with ARDS is clinically improving changed to p.o. levofloxacin p.o. prednisone wean down on the oxygen physical therapy plan for discharge on prednisone procalcitonin level is declining use bronchodilators as needed start patient on low-dose Lasix to promote a negative fluid balance Qualifiers: Chronicity: acute Physician Review: Patient Assessed, Agree with Above Assessment and Plan
[2022-06-15] MEDS: FUROSEMIDE 20 MG/ 2ML VIAL IV SCH (12:20)
[2022-06-15] MEDS ORDERED: FUROSEMIDE 20 MG/ 2ML VIAL IV SCH (14:00)
[2022-06-15] MEDS ORDERED: predniSONE 20 MG TAB PO SCH (21:00)
[2022-06-15] MEDS: ATORVASTATIN 40 MG TAB PO SCH (21:11)
[2022-06-15] MEDS ORDERED: NA CHLORIDE 0.9% 250 ML IV SCH (23:00)
--- NOTE | 2022-06-16 01:31 | P.PN ---
Date of Service: 06/15/22 Subjective Patient is a 76-year-old gentleman with a history of head and neck cancer status post chemotherapy and radiation who came into the hospital with shortness of breath Along with fever. Patient was also slightly confused. Patient recently had chemo couple of days ago and since then he has been really weak. However, he was able to walk up the stairs to the 2nd floor before he started noticing he was really getting weak. He was not feeling like himself so the family decided to bring him into the hospital. In the emergency room he was found to be hypoxic and placed on 4 L of oxygen. He was initially given his sats in the mid 90s. However, he apparently had an episode of vomiting while having a BiPAP and he may have aspirated. Chest x-ray revealed extensive bilateral pulmonary opacities probably pulmonary edema. we went ahead and were able to get patient weaned off BiPAP over the next 24 hours. Currently he is on Airvo. We have been weaning him down from an FiO2 of 100% down to 40% at 20L/min. I spoke to patient's oncologist feels like patient's cancer is fairly advanced and he is not responding to chemotherapy any longer. Oncologist also spoke with the family and at this time they are agreeable with hospice care. However, she wants his oxygenation improved with the orders she proceeds with hospice care. Patient was also anemic today and I came back and spoke with family and they wanted 2 units of packed red blood cells. Will continue with diuresing patient as BNP slightly elevated as well. Trying to get patient off the Airvo at all to 2 L oxygen. The family wants to go home with hospice over the next few days if we can get patient on the wall oxygen. Continue with Diflucan for oral candidiasis. 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 transplanted heart: [place] heart Associated angina: without angina Qualified Code(s): I25.810 - Atherosclerosis of coronary artery bypass graft(s) without angina pectoris (4) Aspiration pneumonia/ chemical pneumonitis Current Visit: Yes Status: Acute (5) Sepsis Current Visit: Yes Status: Acute (6) Oral candidiasis Current Visit: Yes Status: Acute - Plan Continue with plan of care as mentioned below: 1. Continue with IV antibiotics and antifungal therapy 2. Oxygenation requirements are improving 3. Repeat chest x-ray in the morning 4. Spoke with oncology; no further intervention; patient will not get any more chemotherapy as he is too conditioned and they have recommended hospice. Family is wanting patient weaned off of oxygen and hopefully we can get him on the wall oxygen and he can go home. Slowly improving 5. Wean down O2 6. Continue with nebs as needed 7. Wean off IV steroids 8. Repeat labs 9. GI and DVT prophylaxis
[2022-06-16] MEDS ORDERED: FLUCONAZOLE 200mg IVPB 200 MG/100 ML BAG IV SCH (02:00)
[2022-06-16] MEDS: ALBUTEROL 2.5 MG/3 ML NEB SOL IH SCH ×4 (02:10→19:30)
[2022-06-16 08:31] LABS: Absolute Lymphocytes (CBC) 0.4 K/uL (0.7-4.9); Hematocrit 32.2 % (39.6-49.0); Lymphocytes % 3.8 % (15.3-44.8); MCV 94.5 fL (80-100); MPV 9.7 fL (7.6-11.3); RBC Red Blood Cell Count 3.41 M/uL (4.33-5.43)
[2022-06-16] MEDS: ENOXAPARIN 40 MG/0.4 ML SQ SCH (08:36)
[2022-06-16] MEDS: METOPROLOL TAR 25 MG TAB PO SCH ×2 (08:36→20:33)
[2022-06-16] MEDS: levoFLOXacin 750 MG TAB PO SCH (08:36)
[2022-06-16] MEDS: ENSURE ENLIVE 237 ML CAN PO SCH ×5 (08:36→20:32)
[2022-06-16] MEDS: FERROUS SULFATE 325 MG TAB PO SCH (08:37)
[2022-06-16] MEDS: FUROSEMIDE 20 MG/ 2ML VIAL IV SCH (08:37)
[2022-06-16] MEDS: ASPIRIN 81 MG CHEWABLE TABLET PO SCH (08:38)
[2022-06-16] MEDS: predniSONE 20 MG TAB PO SCH ×2 (08:38→20:33)
[2022-06-16] MEDS: FLUCONAZOLE 200mg IVPB 200 MG/100 ML BAG IV SCH (08:44)
[2022-06-16] MEDS: TAMSULOSIN 0.4 MG SR CAP PO SCH ×2 (08:44→20:33)
[2022-06-16] MEDS: LIDOCAINE VISCOUS 2% SOLN 15 ML UDC PO PRN (10:13)
--- NOTE | 2022-06-16 13:33 | P.PN ---
Subjective Date of Service: 06/16/22 Chief Complaint: Resp Failure ARDS No acute events overnight. He reports that his primary concern is dry mouth this morning. He and his are discussing home hospice. Currently, he is on 10 L via HFNC, with an FiO2 of 35 %. Review of Systems 10-point ROS is otherwise unremarkable ENT: Mouth Pain (dry mouth) Physical Examination - Vital Signs Temperature: 96.8 F Blood Pressure: 150/67 Pulse: 60 Respirations: 16 Pulse Ox (%): 94 - Physical Exam General: Alert, In no apparent distress, Oriented x3 HEENT: Atraumatic, Mucous membr. moist/pink, Other (oral thrush noted), Sclerae nonicteric Neck: Other (large tumor noted on right lateral neck) Respiratory: Diminished, Rhonchi/gurgles Cardiovascular: No edema, Regular rate/rhythm, Normal S1 S2, No gallops, No rubs, No murmurs Gastrointestinal: Normal bowel sounds, Soft and benign, Non-distended, No tenderness, No rebound, No guarding Musculoskeletal: No clubbing Integumentary: No rashes Neurological: Normal speech, Cranial nerves 3-12 intact, Normal affect - Studies Medications List Reviewed: Yes Assessment And Plan - Plan # Acute Hypoxic Respiratory Failure - likely secondary to Aspiration Pneumonia Currently, he is on 10 L high-flow nasal cannula, with improvement of his SpO2 readings to 90-94 %. - Evaluation thus far: - Procalcitonin = 5.11 -> 3.32 - COVID-19 swab = negative - ABG = pending - Chest x-ray (06/14) = "Partial resolution in mild bilateral pulmonary opacities" - CT chest = "1. The main pulmonary arteries opacify normally and are without filling defect. However, the remainder of the pulmonary vessels are inadequately evaluated secondary to motion and contrast timing. 2. Findings suggest an infectious process specifically within the left upper lobe." - Management plan: - Consulted Pulmonary Medicine - recommendations appreciated - Consulted Respiratory Therapy - Supplemental oxygen to maintain SpO2 > 92% - Continue levofloxacin - Continue prednisone + benzonatate - Encouraged incentive spirometry # Severe Sepsis likely secondary to Aspiration Pneumonia +/- Right Neck Cellulitis # Metastatic Squamous Cell Carcinoma of the Neck on Chemotherapy # Oral Candidiasis Upon presentation, he initially met sepsis criteria based on temperature > 100.9 F, HR > 90 bpm, RR > 20 breaths/min, and WBC > 12,000 and the suspected source was aspiration pneumonia +/- cellulitis. Severe sepsis was suspected due to initial requirement for BiPAP. - Sepsis order set was initiated - Initial Lactate was 1.5 - Blood cultures drawn before antibiotics were given - Broad spectrum antibiotics started: Levofloxacin + Fluconazole - In regards to fluids: - 30 mL/kg of IV fluids was not administered given SBP > 90, MAP > 65, lactic acid < 4 - Started PO viscous lidocaine # Suspect Chemotherapy-Induced Anemia - S/P 2 units pRBCs with stabilization of his Hgb count - Monitor H&H # Coronary Artery Disease s/p CABG - Continue home aspirin, atorvastatin, metoprolol # Goals of Care - He and his are currently arranging for home hospice once he is on nasal cannula - Appreciate CM assistance Ray Parker M.D.
[2022-06-16 15:28] LABS: Arterial Blood Carboxyhemoglob 1.4 % (0-1.5); Blood Gas Oxyhemoglobin 91.2 % (94-97); Blood O2 Saturation 93.5 % (92-98.5)
[2022-06-16] MEDS: ATORVASTATIN 40 MG TAB PO SCH (20:33)
[2022-06-17] MEDS: ALBUTEROL 2.5 MG/3 ML NEB SOL IH SCH ×3 (01:40→14:08)
[2022-06-17 01:45] VITALS: O2SAT 95
[2022-06-17 03:57] LABS: Hematocrit 33.7 % (39.6-49.0)
--- NOTE | 2022-06-17 06:58 | RAD REPORT ---
EXAM DESCRIPTION: RAD - Chest Single View - 06/17/2022 6:09 am CLINICAL HISTORY: dyspnea COMPARISON: Portable June 14 TECHNIQUE: AP portable chest image was obtained 06/17/2022 6:09 am . FINDINGS: Lung volumes are low accentuating the interstitial pattern. Interstitial markings are prom inent but do show improvement from the June 14 imaging. No progressive lung parenchymal process. L eft-sided Port-A-Cath has not changed. No new tube or line. Heart and vasculature are normal. No measurable pleural effusion and no pneumothorax. No acute bony a bnormality seen. No acute aortic findings suspected. IMPRESSION: Continued improvement in the lung parenchymal pattern since June 14 imaging.
[2022-06-17] MEDS: LIDOCAINE VISCOUS 2% SOLN 15 ML UDC PO PRN (08:56)
[2022-06-17] MEDS: METOPROLOL TAR 25 MG TAB PO SCH (08:57)
[2022-06-17] MEDS: TAMSULOSIN 0.4 MG SR CAP PO SCH (08:57)
[2022-06-17] MEDS: predniSONE 20 MG TAB PO SCH (08:58)
[2022-06-17] MEDS: levoFLOXacin 750 MG TAB PO SCH (08:58)
[2022-06-17] MEDS: ASPIRIN 81 MG CHEWABLE TABLET PO SCH (08:58)
[2022-06-17] MEDS: FERROUS SULFATE 325 MG TAB PO SCH (08:59)
[2022-06-17] MEDS: FUROSEMIDE 20 MG/ 2ML VIAL IV SCH (08:59)
[2022-06-17] MEDS: ENOXAPARIN 40 MG/0.4 ML SQ SCH (08:59)
[2022-06-17] MEDS: FLUCONAZOLE 200mg IVPB 200 MG/100 ML BAG IV SCH (09:00)
[2022-06-17] MEDS: ENSURE ENLIVE 237 ML CAN PO SCH ×3 (09:11→14:02)
--- NOTE | 2022-06-17 12:28 | P.DS ---
Admission Date: 06/10/22 Discharge Date: 06/17/22 Disposition: HOSPICE-HOME Discharge Condition: FAIR Reason for Admission: Resp Failure ARDS Consultations: 1. 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 Juan Antonio Mooney is a pleasant 76 year old male with a past medical history significant for metastatic squamous cell carcinoma of the neck s/p chemotherapy and coronary artery disease s/p CABG who was admitted to the [facility] on 06/10/2022 for altered mental status and hypoxia. He was admitted to the Medicine service. Upon further evaluation, he was found to have acute hypoxic respiratory failure, severe sepsis, and acute toxic metabolic encephalopathy secondary to aspiration pneumonia. He was treated with IV antibiotics, with gradual improvement of his symptoms. Dr. Montalvo discussed his case with his oncologist (Dr. Wright), who stated that no further chemotherapy was indicated. Dr. Montalvo had a [id number] discussion with Mr. Mooney and his , who elected to proceed with Home Hospice. With the assistance of case management, Home Hospice was arranged. On 06/17/2022, he was seen on morning rounds and deemed medically stable for discharge. He was discharged with instructions to follow-up with his Hospice providers as needed. He was provided prescriptions for levofloxacin, benzonatate, nystatin, and prednisone. He and his were given the opportunity to ask questions and reported no further questions. Furthermore, all questions were answered to the best of my ability. Today, I personally spent 25 minutes on his case, of which greater than 50% of the time was spent in patient education, counseling, and coordination of care as described above. - Physical Exam General: Alert, In no apparent distress, Oriented x3 HEENT: Atraumatic, Mucous membr. moist/pink, Other (oral thrush noted), Sclerae nonicteric Neck: Other (large tumor noted on right lateral neck) Respiratory: Diminished, Rhonchi/gurgles improved Cardiovascular: No edema, Regular rate/rhythm, No rubs, No murmurs Gastrointestinal: Soft and benign, Non-distended, No tenderness, No rebound, No guarding Musculoskeletal: No clubbing Integumentary: No rashes Neurological: Normal speech, Normal affect Vital Signs/Physical Exam: Temp Pulse Resp BP Pulse Ox 97.7 F 72 16 154/73 H 93 06/17/22 08:00 06/17/22 08:00 06/17/22 08:00 06/17/22 08:00 06/17/22 08:00 Laboratory Data at Discharge: WBC 10.80 K/uL (4.3-10.9) 06/16/22 08:18 Hgb 11.5 g/dL (13.6-17.9) L 06/17/22 03:10 Hct 33.7 % (39.6-49.0) L 06/17/22 03:10 Plt Count 133 K/uL (152-406) L 06/16/22 08:18 PT 13.6 SECONDS (9.5-12.5) H 06/09/22 21:03 INR 1.24 06/09/22 21:03 APTT 25.0 SECONDS (24.3-36.9) 06/09/22 21:03 Sodium 142 mmol/L (136-145) 06/15/22 05:57 Potassium 4.0 mmol/L (3.5-5.1) 06/15/22 05:57 BUN 42 mg/dL (7-18) H 06/15/22 05:57 Creatinine 0.95 mg/dL (0.70-1.30) 06/15/22 05:57 Glucose 146 mg/dL (74-106) H 06/15/22 05:57 Phosphorus 4.5 mg/dL (2.5-4.9) 06/11/22 03:28 Magnesium 2.1 mg/dL (1.6-2.4) 06/15/22 05:57 Total Bilirubin 0.5 mg/dL (0.2-1.0) 06/15/22 05:57 AST 89 U/L (15-37) H 06/15/22 05:57 ALT 277 U/L (16-61) H 06/15/22 05:57 Alkaline Phosphatase 66 U/L (45-117) 06/15/22 05:57 Home Medications: Acetaminophen [Acetaminophen Extra Strength] 1,000 mg PO BID 06/10/22 Aspirin 81 mg PO DAILY 06/10/22 Atorvastatin Calcium 40 tab PO BEDTIME 06/10/22 Baclofen 10 mg PO TID PRN 06/10/22 Clopidogrel Bisulfate [Plavix*] 75 mg PO DAILY 06/10/22 Docusate [Colace Cap*] 100 mg PO BID PRN 06/10/22 Ensure Enlive 1 can PO 5XD 06/10/22 Ferrous Sulfate 1 tab PO DAILY 06/10/22 Lactulose 1 packet PO TID PRN 06/10/22 Levothyroxine Sodium [Levothyroxine] 25 mcg PO DAILY 06/10/22 Loratadine [Claritin*] 10 mg PO DAILY 06/10/22 Magic Mouthwash [Magic Mouthwash*] 1 dose PO Q6HR PRN 06/10/22 Metoprolol Tartrate 25 mg PO BID 06/10/22 Mirtazapine 30 mg PO BEDTIME 06/10/22 Nitroglycerin 0.4 mg SL Q5MX3, Q15MX1, Q30M PRN 06/10/22 Polyethyl Gly 3350 [Glycolax*] 1 pkt PO DAILY PRN 06/10/22 Tamsulosin [Flomax*] 1 cap PO BID 06/10/22 buPROPion HCL [Bupropion Xl] 300 mg PO DAILY 06/10/22 hydrOXYzine HCL [Atarax*] 50 mg PO BEDTIME PRN 06/10/22 Benzonatate [Tessalon Perle*] 100 mg PO TID PRN 7 Days #20 cap 06/17/22 Nystatin 1 ml PO BID #60 ml 06/17/22 levoFLOXacin [Levaquin*] 750 mg PO DAILY 5 Days #5 tab 06/17/22 predniSONE [Deltasone*] 10 mg PO BID 3 Days #6 tab 06/17/22 New Medications: predniSONE [Deltasone*] 10 mg PO BID 3 Days #6 tab levoFLOXacin [Levaquin*] 750 mg PO DAILY 5 Days #5 tab Nystatin 1 ml PO BID #60 ml Benzonatate [Tessalon Perle*] 100 mg PO TID PRN 7 Days #20 cap PRN Reason: Cough Diet: AHA Activity: Ad kit Time spent managing pt's care (in minutes): 25
[2022-06-17 16:27] VITALS: BP 138/67; TEMP 97.4
== END 2022-06-17 16:56 | disposition hospice, home (50) | DRG 871 ==
LOC: ER 20:30 → ERHOLD 06-10 00:22 → 4TH 06-10 20:15
PROVIDERS: ADMIT Hospitalist; ATTEND Internal Medicine
PROC: 5A09557 Assistance with Respiratory Ventilation, Greater than 96 Consecutive Hours, Continuous Positive Airway Pressure (ICD-10-PCS; principal; 2022-06-11)
PROC: 30233N1 Transfusion of Nonautologous Red Blood Cells into Peripheral Vein, Percutaneous Approach (ICD-10-PCS; 2022-06-15)
DX: A41.9 Sepsis, unspecified organism (principal); G92.8 Other toxic encephalopathy; J69.0 Pneumonitis due to inhalation of food and vomit; J80 Acute respiratory distress syndrome; I25.810 Atherosclerosis of coronary artery bypass graft(s) without angina pectoris; L03.221 Cellulitis of neck; L02.11 Cutaneous abscess of neck; E87.0 Hyperosmolality and hypernatremia; C79.89 Secondary malignant neoplasm of other specified sites; B37.0 Candidal stomatitis; J68.0 Bronchitis and pneumonitis due to chemicals, gases, fumes and vapors; R65.20 Severe sepsis without septic shock; D64.81 Anemia due to antineoplastic chemotherapy; T45.1X5A Adverse effect of antineoplastic and immunosuppressive drugs, initial encounter; I25.2 Old myocardial infarction; Z66 Do not resuscitate; Z51.5 Encounter for palliative care; Z88.8 Allergy status to other drugs, medicaments and biological substances; Z88.5 Allergy status to narcotic agent; Z95.1 Presence of aortocoronary bypass graft; Z79.82 Long term (current) use of aspirin; Z79.52 Long term (current) use of systemic steroids; Z79.02 Long term (current) use of antithrombotics/antiplatelets; Z79.890 Hormone replacement therapy; Z79.899 Other long term (current) drug therapy; Z85.810 Personal history of malignant neoplasm of tongue; Z20.822 Contact with and (suspected) exposure to COVID-19
CPT/HCPCS: 0240U; 36415; 71045; 71275; 80048; 80053; 80202; 81003; 81015; 82805; 82947; 83605; 83735; 83880; 84100; 84145; 85014; 85018; 85025; 85027; 85610; 85730; 86850; 86900; 86901; 87040; 87070; 87086; 87088; 87205; 93005; 93306; 94002; 94003; 94010; 94640; 94660; 94760; 96365; 96375; 99284; J0456; J1160; J1450; J1630; J1650; J1940; J2185; J2930; J3370; J3480; J7030; J7040; J7050; J7512; J7613; J7644; J7799; P9016; Q9967